=== PATIENT | male | born 1950 | race Caucasian/White ===

== ENCOUNTER 2017-01-22 13:59 | Emergency (ER) | payer OTHER ==
[2017-01-22 14:11] VITALS: BP 99/61
--- NOTE | 2017-01-22 14:44 | RAD ---
INDICATION: Intracranial injury COMPARISON: CT brain April 06, 2009 TECHNIQUE: Noncontrast axial source images were acquired from the skull base to the vertex. FINDINGS: Ventricles/sulci: There is cortical atrophy with compensatory dilatation of the CSF spaces. Brain parenchyma: There is no acute focal parenchymal finding, evidence of intracranial mass, or intracranial mass effect. There is a remote right occipital infarct with encephalomalacia. Intracranial hemorrhage:None. Extra-axial spaces: There are no abnormal extra axial fluid collections or evidence of extra-axial mass. Calvarium: There is no calvarial fracture or other calvarial abnormality. Scalp: There is no evidence of scalp or extracalvarial soft tissue abnormality. Paranasal sinuses/mastoid: The paranasal sinuses and mastoid air cells are clear. Other: None. IMPRESSION: NO ACUTE INTRACRANIAL FINDINGS. REMOTE RIGHT OCCIPITAL INFARCT WITH ENCEPHALOMALACIA
[2017-01-22] MEDS ORDERED: HYDROcodone/ACETAMIN 5-325 MG* 1 TAB PO ONE (14:52)
--- NOTE | 2017-01-22 15:34 | RAD ---
INDICATION: Left knee injury. TECHNIQUE: 4 views of the left knee were obtained. FINDINGS: The bones are in normal alignment. No joint effusion or fracture is seen. There is mild to moderate osteoarthritic change in the patellofemoral and medial compartments. IMPRESSION: NO EVIDENCE FOR FRACTURE.
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
== END 2017-01-22 16:20 | disposition home or self-care (01) ==
LOC: ED 13:59
DX: S80.212A Abrasion, left knee, initial encounter (principal); M25.562 Pain in left knee; W10.9XXA Fall (on) (from) unspecified stairs and steps, initial encounter; Y93.9 Activity, unspecified; Y92.9 Unspecified place or not applicable; Y99.9 Unspecified external cause status; Z87.891 Personal history of nicotine dependence
CPT/HCPCS: 70450; 99282

== ENCOUNTER 2017-03-15 06:01 | Inpatient (IN) | payer OTHER ==
[2017-03-15] MEDS ORDERED: Albuterol/Ipratropium NEB.SOL* Albuterol 2.5 MG/Ipratropium 0.5 MG 3 ML INH ONE (06:06)
[2017-03-15] MEDS ORDERED: methylPREDNISolone 125 MG* 2 ML VIAL IV ONE (06:06)
[2017-03-15 06:17] LABS: Hematocrit 56 % (42-52); Hemoglobin 17.7 g/dl (14.0-18.0); Mean Corpuscular HGB Conc 32 g/dl (31-36); Mean Corpuscular Hemoglobin 30 pg (27-31); Mean Corpuscular Volume 95 fL (80-94); Mean Platelet Volume 10 um3 (7.4-10.4); Red Blood Count 5.89 10^6/ul (4.0-5.4); Red Cell Distribution Width 15 % (10.5-15); White Blood Count 11.9 10^3/ul (3.5-10.8)
[2017-03-15 06:30] LABS: Albumin 4.7 g/dL (3.2-5.2); BUN/Creatinine Ratio 18.1 (8-20); C Reactive Protein 7.85 mg/L (< 5.00); Calcium 9.9 mg/dL (8.6-10.3); EGFR African American 60.5 (>60); Globulin 3.3 g/dL (2-4); Magnesium 2.4 mg/dL (1.9-2.7); Potassium 4.6 mmol/L (3.5-5.0); Total Bilirubin 0.8 mg/dL (0.2-1.0)
[2017-03-15 06:38] LABS: Troponin I 0.04 ng/mL (<0.04)
[2017-03-15] MEDS ORDERED: Furosemide IV* 10 MG/ML VIAL (40 MG) IV ONE (06:46)
[2017-03-15] MEDS ORDERED: Morphine INJ* 4 MG/ML 1 ML SYRINGE IV ONE (06:48)
[2017-03-15] MEDS ORDERED: Morphine INJ* 2 MG/ML 1 ML SYRINGE ONE (06:48)
[2017-03-15] MEDS ORDERED: cefTRIAXone(*) 1 GM in NS 0.9% 50 ML* 50 ML IVPB ONE (06:49)
[2017-03-15] MEDS ORDERED: Azithromycin IV(*) 500 MG in NS 0.9% 250 ML* 250 ML IVPB ONE (06:49)
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
[2017-03-15 07:03] LABS: TSH (Thyroid Stimulating Horm) 4.65 mcIU/mL (0.34-5.60)
--- NOTE | 2017-03-15 08:08 | RAD ---
INDICATION: Short of breath COMPARISON: May 09, 2016 TECHNIQUE: An AP portable view obtained at 0528 hours is submitted. FINDINGS: Bones/Soft Tissues: There are no acute bony findings. Cardiomediastinal: The cardiac silhouette, central pulmonary vessels, and interstitium remain prominent. Lungs: Diffuse interstitial and early alveolar change consistent with pulmonary interstitial and alveolar edema. Pleura: There are no pleural effusions. Other: None IMPRESSION: PULMONARY INTERSTITIAL AND ALVEOLAR EDEMA. NO SIGNIFICANT CHANGE.
[2017-03-15] MEDS ORDERED: Albuterol 2.5 MG/3 ML NEB.SOL* (0.083%) INH PRN (08:20)
[2017-03-15] MEDS ORDERED: Ondansetron INJ* 2 MG/ML VIAL IV PRN (08:20)
[2017-03-15] MEDS ORDERED: HYDROcodone/ACETAMIN 5-325 MG* 1 TAB PO PRN (08:26)
[2017-03-15] MEDS ORDERED: ALPRAZolam TAB* 0.5 MG PO PRN (08:26)
[2017-03-15] MEDS ORDERED: Dextrose 50% Syringe 50 ML* 25 GM/50 ML SYRINGE IV PUSH PRN (08:31)
[2017-03-15] MEDS ORDERED: Apixaban* 5 MG TAB PO SCH (09:00)
[2017-03-15] MEDS ORDERED: Spiriva Inhaler DEVICE* 1 EACH DEVICE INH ONE (09:00)
[2017-03-15 09:16] LABS: Urine Bacteria Absent (Absent); Urine Bilirubin Negative (Negative); Urine Glucose 3+(>=500 mg/dL) (Negative); Urine Nitrite Negative (Negative)
[2017-03-15] MEDS ORDERED: Perflutren Lipid Microsphere* 3 ML VIAL ONE (09:38)
--- NOTE | 2017-03-15 11:07 | ECHO ---
Patient: KURTIS GONZALES [facility] Rec#: [id number] : 1950 Date: 03/15/2017 Age: 66y Height: 182.88 cm / 72.0 in Weight: 98.88 kg / 217.9 lbs Sex: M BSA: 2.21 Room#: ICU-3 Admit Date#: 03/15/2017 Type: Inpatient Referring: Raciel Erazo MD Reading: Abdullahi Healy MD [employer] Control: Ladi Mccoy CLAY CC: Salud Bella NP Transthoracic Echocardiogram Indication: Hypoxia/Resp Abn. BP: 106/66 HR: 122 Rhythm: Tachycardia Findings Technical Comments: The study is technically limited due to patient being on BIPAP during study. Completed at 1038. Left Ventricle: The left ventricular chamber size is mildly dilated.There is moderately depressed left ventricular function. Mild to moderate concentric left ventricular hypertrophy is observed. Septal knuckle measured 2.0 cm. The estimated ejection fraction is 35-40%. The assessment of diastolic function is non-diagnostic. The basal inferior wall segment is akinetic (score 3). Overall wallmotion score index is 3.00 Left Atrium: The left atrium is moderate to severely dilated. Right Ventricle: The right ventricular cavity size is normal. The right ventricular global systolic function is normal. Right Atrium: The right atrium is not well visualized.but appears grossly normal in size. Aortic Valve: The aortic valve structure is not well visualized. There is mild aortic regurgitation. There is no evidence of aortic stenosis. Mitral Valve: There is mitral annular calcification. The mitral valve leaflets are mildly thickened. There is trace to mild mitral regurgitation. Tricuspid Valve: The tricuspid valve leaflets are normal. There is trace to mild tricuspid regurgitation. There is evidence of mild pulmonary hypertension. There is no tricuspid stenosis. Pulmonic Valve: The pulmonic valve structure is not well visualized. There is a trace pulmonic regurgitation. There is no pulmonic stenosis. Pericardium: There is no pericardial effusion. A pericardial fat pad is visualized. Aorta: There is mild dilatation of the ascending aorta. The aortic arch is not well visualized. There is moderate dilatation of the aortic root. Pulmonary Artery: The main pulmonary artery is not well visualized. Venous: The inferior vena cava is dilated. There is a greater than 50% respiratory change in the inferior vena cava dimension. Contrast: Definity was used to optimize study. A total of 4 ml. used. Intravenous contrast was used to enhance endocardial border definition. Conclusions The left ventricular chamber size is mildly dilated. There is moderately depressed left ventricular function. The estimated ejection fraction is 35-40%. Mild to moderate concentric left ventricular hypertrophy is observed. There is moderate global hypokinesis. The basal inferior wall segment is akinetic (score 3). The left atrium is moderate to severely dilated. There is mild aortic regurgitation. There is evidence of mild pulmonary hypertension. There is mild dilatation of the ascending aorta. There is moderate dilatation of the aortic root. Since the prior echocardiogram completed 04/09/16, there appears to be little change. Measurements Name Value Normal Range RVIDd (AP) 2D 2.6 cm (0.9 - 2.6) IVSd (2D) 1.4 cm (0.6 - 1) LVPWd (2D) 1.1 cm (0.6 - 1) LVIDd (2D) 6 cm (3.6 - 5.4) LVIDs (2D) 4.5 cm - LV FS (2D) 25 % (25 - 45) Aortic Annulus 2.4 cm (1.4 - 2.6) Ao root diameter (2D) 4.2 cm (2.1 - 3.5) Ascending Ao 3.5 cm (2.1 - 3.4) LA dimension (AP) 2D 5.2 cm (2.3 - 3.8) LAd ISD 4CH 6.7 cm (2.9 - 5.3) LA ISD 4CH W 4.9 cm (2.5 - 4.5) Name Value Normal Range LA ESV SP 4CH (A/L) 130 ml - LA ESV SP 2CH (A/L) 99 ml - LA ESV BP (A/L) 114 ml - LA ESV BP (A/L) index 51.66 ml/m2 - LA ESV SP 4CH (MOD) 111 ml - LA ESV SP 2CH (MOD) 93 ml - Name Value Normal Range MV E-wave Vmax 0.8 m/sec - MV deceleration time 130 msec - LV septal e' Vmax 0.03 m/sec - LV lateral e' Vmax 0.07 m/sec - LV E:e' septal ratio 26.67 ratio - LV E:e' lateral ratio 11.42 ratio - Name Value Normal Range AV Vmax 1.3 m/sec - AV VTI 19.9 cm - AV peak gradient 6.92 mmHg - AV mean gradient 2.96 mmHg - LVOT Vmax 0.7 m/sec - LVOT VTI 12.7 cm - LVOT peak gradient 2.21 mmHg - LVOT mean gradient 0.95 mmHg - AR PHT 374 msec - AR peak gradient 46.45 mmHg - Name Value Normal Range TR Vmax 2.7 m/sec - TR peak gradient 30 mmHg - RAP 8 mmHg - RVSP 38 mmHg - IVC diameter 2.3 cm - Name Value Normal Range PV Vmax 0.7 m/sec - PV peak gradient 1.72 mmHg - Wallmotion BAS Not Seen BA Not Seen BAL Not Seen JA Not Seen BI Akinetic BIS Not Seen MAS Not Seen MA Not Seen MAL Not Seen MIL Not Seen [place] Not Seen MIS Not Seen Not Seen AA Not Seen AL Not Seen AI Not Seen APEX Not Seen
[2017-03-15 11:08] LABS: Troponin I 0.28 ng/mL (<0.04)
[2017-03-15] MEDS: Metoprolol Succinate XL TAB* 50 MG PO SCH ×2 (11:48→21:16)
[2017-03-15] MEDS: Gabapentin CAP(*) 300 MG PO SCH ×3 (11:49→21:14)
[2017-03-15] MEDS: Nicotine PATCH 7 MG/24 HR* PATCH TRANSDERM SCH (11:49)
[2017-03-15] MEDS: Loperamide CAP* 2 MG PO PRN (11:50)
[2017-03-15] MEDS: Tiotropium CAP.INH* CAP.INH/18 MCG INH SCH (11:50)
[2017-03-15] MEDS: Mometasone/Formoter 200/5 MDI INH SCH ×2 (11:51→19:51)
[2017-03-15] MEDS: Insulin LISPRO* 1 UNITS UNIT SUBCUT SCH ×3 (12:00→21:27)
[2017-03-15] MEDS ORDERED: Aspirin TAB* 325 MG PO ONE (12:32)
[2017-03-15] MEDS: OXcarbazepine TAB(*) 300 MG PO SCH ×2 (13:51→21:14)
[2017-03-15] MEDS ORDERED: Loperamide CAP* 2 MG PO ONE (15:01)
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
[2017-03-15] MEDS ORDERED: Heparin DRIP 25,000 UNITS(*) 25,000 UNITS/500 ML BAG IVPB SCH (16:15)
[2017-03-15] MEDS ORDERED: Furosemide IV* 10 MG/ML VIAL (40 MG) IV SCH (17:00)
[2017-03-15] MEDS ORDERED: Heparin VIAL(*) 5000 UNITS/ML VIAL (FIVE THOUSAND) IV SCH (17:00)
[2017-03-15] MEDS ORDERED: Atorvastatin* 20 MG TAB PO SCH (17:00)
[2017-03-15 17:42] LABS: Hematocrit 44 % (42-52); Hemoglobin 14.5 g/dl (14.0-18.0); Mean Corpuscular HGB Conc 33 g/dl (31-36); Mean Corpuscular Hemoglobin 30 pg (27-31); Mean Corpuscular Volume 92 fL (80-94); Mean Platelet Volume 9 um3 (7.4-10.4); Red Cell Distribution Width 14 % (10.5-15); White Blood Count 9.2 10^3/ul (3.5-10.8)
[2017-03-15 17:53] LABS: Troponin I 0.41 ng/mL (<0.04)
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
[2017-03-16 03:52] LABS: Hematocrit 38 % (42-52); Hemoglobin 12.5 g/dl (14.0-18.0); Mean Corpuscular HGB Conc 33 g/dl (31-36); Mean Corpuscular Hemoglobin 30 pg (27-31); Mean Corpuscular Volume 92 fL (80-94); Mean Platelet Volume 10 um3 (7.4-10.4); Red Blood Count 4.13 10^6/ul (4.0-5.4); Red Cell Distribution Width 15 % (10.5-15); White Blood Count 13.4 10^3/ul (3.5-10.8)
[2017-03-16 04:05] LABS: BUN/Creatinine Ratio 34.4 (8-20); EGFR African American 100.5 (>60); EGFR Non-African American 78.1 (>60); Magnesium 1.8 mg/dL (1.9-2.7); Potassium 3.8 mmol/L (3.5-5.0)
[2017-03-16] MEDS ORDERED: Omeprazole CAP* 20 MG PO SCH (06:00)
[2017-03-16] MEDS ORDERED: Magnesium Sulfate 2 GM IV* 2 GM/50 ML BAG IVPB ONE (07:37)
[2017-03-16] MEDS ORDERED: Furosemide IV* 10 MG/ML VIAL (40 MG) IV SLOW PU SCH ×3 (07:43→09:00)
[2017-03-16] MEDS: Metoprolol Succinate XL TAB* 50 MG PO SCH (08:01)
--- NOTE | 2017-03-16 08:02 | PN ---
Subjective Date of Service: 03/16/17 Interval History: CC: SOB Patient admitted yesterday AM w/ CHF exacerbation. States breathing is OK, was able to lie flat overnight. No chest pain, palpitations. Not having high urine output. Denies peripheral edema. Trying to quit smoking, smokes about 3-4cig/mon Family History: Unchanged from Admission Social History: Unchanged from Admission Past Medical History: Unchanged from Admission Objective Active Medications: Hydrocodone Bitart/Acetaminophen ([place] 5-325 Tab*) 1 tab PO Q6H PRN PRN Reason: PAIN SCALE 6-10 Albuterol (Ventolin 2.5 Mg/3 Ml Neb.Jessika*) 2.5 mg INH [id number] AWAKE PRN PRN Reason: sob/wheezing Alprazolam (Xanax Tab*) 0.5 mg PO BID PRN PRN Reason: ANXIETY Atorvastatin Calcium (Lipitor*) 20 mg PO 1700 [facility] Last Admin: 03/15/17 17:48 Dose: 20 mg Dextrose (D50w Syringe 50 Ml*) 12.5 gm IV PUSH .FOR FS < 60 - SS PRN PRN Reason: FS < 60 Furosemide (Lasix Iv*) 40 mg IV SLOW PU BID@0900 [facility] Gabapentin (Neurontin Cap(*)) 600 mg PO TID [facility] Last Admin: 03/15/17 21:14 Dose: 600 mg Heparin Sodium (Porcine) (Heparin Vial(*)) 0 units IV .PER PROTOCOL STELLA PRN Reason: Protocol Last Admin: 03/15/17 19:49 Dose: 7,300 units Heparin Sodium/Dextrose (Heparin Drip 25,000 Units(*)) 25,000 units in 500 mls @ 0 mls/hr IVPB .PER RATE STELLA; Per Protocol PRN Reason: Protocol Last Admin: 03/15/17 19:35 Dose: 31 mls/hr Insulin Human Lispro (Humalog*) 0 units SUBCUT ACHS STELLA PRN Reason: Protocol Last Admin: 03/15/17 21:27 Dose: 4 units Loperamide HCl (Imodium Cap*) 2 mg PO Q6HR PRN PRN Reason: LOOSE STOOLS Last Admin: 03/15/17 11:50 Dose: 2 mg Metoprolol Succinate (Toprol Xl Tab*) 100 mg PO BID [facility] Last Admin: 03/15/17 21:16 Dose: Not Given Mometasone Furoate/Formoterol Fumar (Dulera 200/5 Mdi*) 2 puff INH BID [facility] Last Admin: 03/15/17 19:51 Dose: 2 inh Nicotine (Nicotine Patch 7 Mg/24 Hr*) 1 patch TRANSDERM DAILY [facility] Last Admin: 03/15/17 11:49 Dose: 1 patch Omeprazole (Prilosec Cap*) 20 mg PO DAILY@0600 [facility] Last Admin: 03/16/17 06:32 Dose: 20 mg Ondansetron HCl (Zofran Inj*) 4 mg IV Q4H PRN PRN Reason: NAUSEA/VOMITING Oxcarbazepine (Trileptal Tab(*)) 300 mg PO BID [facility] Last Admin: 03/15/17 21:14 Dose: 300 mg Tiotropium [place] (Spiriva Cap.Inh*) 1 cap INH DAILY [facility] Last Admin: 03/15/17 11:50 Dose: 1 inh Vital Signs 03/16/17 03/16/17 03/16/17 03:00 03:39 03:44 Temperature 36.2 C Pulse Rate 82 Respiratory 17 17 Rate Blood Pressure 117/75 (mmHg) O2 Sat by Pulse 97 Oximetry 03/16/17 03/16/17 03/16/17 04:00 05:00 06:00 Temperature Pulse Rate 90 89 76 Respiratory 21 20 15 Rate Blood Pressure 110/74 113/56 112/48 (mmHg) O2 Sat by Pulse 99 99 99 Oximetry 03/16/17 03/16/17 07:00 07:20 Temperature 36.7 C Pulse Rate 90 Respiratory 22 Rate Blood Pressure 113/76 (mmHg) O2 Sat by Pulse 97 Oximetry Oxygen Devices in Use Now: Nasal Cannula Appearance: No acute distress Ears/Nose/Mouth/Throat: NL Teeth, Lips, Gums Neck: NL Appearance and Movements; NL JVP, Trachea Midline Respiratory: - - diminished throughout, no rales Cardiovascular: NL Sounds; No Murmurs; No JVD, No Edema, - - irregular Abdominal: NL Sounds; No Tenderness; No Distention, No Hepatosplenomegaly Lymphatic: No Cervical Adenopathy Extremities: No Edema Neurological: Alert and Oriented x 3 Lines/Tubes/Other Access: Clean, Dry and Intact Peripheral IV Nutrition: Taking PO's Result Diagrams: 03/16/17 03:36 03/16/17 03:36 Additional Lab and Data: Lab Results Laboratory Tests 03/15/17 03/15/17 03/15/17 10:30 15:10 17:25 APTT 31.9 Glucose POC Glucose (mg/dL) Magnesium Troponin I 0.28 H* 0.38 H* 03/15/17 03/15/17 03/15/17 17:25 21:21 21:22 APTT Glucose 322 H POC Glucose (mg/dL) 312 H Magnesium Troponin I 0.41 H* 0.42 H* 03/16/17 03/16/17 03:36 03:36 APTT 188.5 H* Glucose 173 H POC Glucose (mg/dL) Magnesium 1.8 L Troponin I Diagnostic Imaging: Echo yesterday EF 35% EKG Data: Telemetry w/o significant arrhythmias, chronic a-fib Assess/Plan/Problems-Billing Assessment: 66 yo man with known CAD, a-fib, systolic CHF, admitted w/ acute hypoxic respiratory failure due to systolic heart failure exacerbation. - Patient Problems (1) Acute respiratory failure with hypoxia Current Visit: Yes Status: Acute Priority: High Code(s): J96.01 - ACUTE RESPIRATORY FAILURE WITH HYPOXIA SNOMED Code(s): 27646151 Comment: -Resp failure resolved, post 4 hours of BiPAP and diuresis. -Advised home BiPAP use, due to chronic COPD and CHF (2) Acute systolic (congestive) heart failure Current Visit: Yes Status: Acute Priority: High Code(s): I50.21 - ACUTE SYSTOLIC (CONGESTIVE) HEART FAILURE SNOMED Code(s): 608760132 Comment: -CHF symptoms improved -not diuresing adequately, will increase IV lasix to BID, follow I/O, weights -discussed low salt diet. (3) CAD (coronary artery disease) Current Visit: Yes Status: Chronic Priority: Medium Code(s): I25.10 - ATHSCL HEART DISEASE OF [place] CORONARY ARTERY W/O ANG PCTRS SNOMED Code(s): 22750205 Comment: -Troponin elevated by demand ischemia, not peaked yet, will recheck this AM. -continue IV heparin -cardiology consult appreciated, pursuing non-invasive strategy (4) Atrial fibrillation Current Visit: No Status: Chronic Priority: Medium Code(s): I48.91 - UNSPECIFIED ATRIAL FIBRILLATION SNOMED Code(s): 60767229 Comment: -rate control excellent, continue metoprolol -Continue IV heparin inpatient, will discharge back on Eliquis -will supplement magnesium IV (5) Type 2 diabetes mellitus Current Visit: Yes Status: Chronic Priority: Medium Comment: - metformin on hold due to lactic acidosis - FSBG elevated yesterday, improved today, continue SSI (6) DVT prophylaxis Current Visit: No Status: Acute Priority: Medium Onset Date: 11/05/14 Code(s): CYQ9087 - SNOMED Code(s): 777901562 Comment: on IV heparin
[2017-03-16] MEDS: Gabapentin CAP(*) 300 MG PO SCH (08:42)
[2017-03-16] MEDS: OXcarbazepine TAB(*) 300 MG PO SCH (08:42)
[2017-03-16] MEDS: Nicotine PATCH 7 MG/24 HR* PATCH TRANSDERM SCH (08:42)
[2017-03-16] MEDS: Tiotropium CAP.INH* CAP.INH/18 MCG INH SCH (08:45)
[2017-03-16] MEDS: Mometasone/Formoter 200/5 MDI INH SCH (08:45)
[2017-03-16] MEDS: Insulin LISPRO* 1 UNITS UNIT SUBCUT SCH ×2 (09:13→12:53)
[2017-03-16 11:05] VITALS: BP 107/51
[2017-03-16] MEDS: Loperamide CAP* 2 MG PO PRN (12:54)
--- NOTE | 2017-03-17 00:19 | DS ---
CC: Dr. Magalys Sams, [place], [place]; Dr. Walls, Chief of Cardiology, [place], [place] DISCHARGE SUMMARY: DATE OF ADMISSION: 03/15/17 DATE OF DISCHARGE: 03/16/17 PRIMARY DIAGNOSIS: Acute exacerbation of systolic heart failure. SECONDARY DIAGNOSES: 1. Acute hypoxic respiratory failure. 2. Cardiomyopathy thought to be due to arrhythmia with ejection fraction of 30%. 3. Coronary artery disease with history of stenting x6 with suspicion of ischemic cardiomyopathy as well. 4. Chronic atrial fibrillation, on anticoagulation. 5. Hypertension. 6. Chronic kidney disease, stage 3. 7. Chronic obstructive pulmonary disease, oxygen dependent at night, 2 L per minute. 8. Hyperlipidemia. 9. Type 2 diabetes. 10. Sleep apnea, noncompliant with CPAP. 11. Gastroesophageal reflux disease. 12. Psoriasis. 13. Chronic low back pain. 14. Irritable bowel syndrome. MEDICATIONS ON DISCHARGE: 1. Alprazolam 0.5 mg p.o. b.i.d. p.r.n. anxiety. 2. Eliquis 5 mg p.o. b.i.d. 3. Atorvastatin 20 mg p.o. q.p.m. 4. Symbicort 80/4.5 two inhalations twice a day. 5. Chlorhexidine mouthwash as needed. 6. Vitamin D 2000 International Units p.o. q. day. 7. Furosemide 40 mg p.o. b.i.d. with additional half tablet as needed if weight elevated 2 pounds a mary baseline or if systolic blood pressure greater than 110. 8. Gabapentin 600 mg p.o. t.i.d. 9. Guaifenesin tablet 200 mg four times a day p.r.n. for congestion. 10. Hydrocodone with acetaminophen 5/325 one tab p.o. four times a day p.r.n. back pain. 11. Ammonium lactate cream topically as needed. 12. Loperamide 2 mg p.o. q.6 hours p.r.n. diarrhea. 13. Toprol-XL 100 mg p.o. b.i.d. 14. Naloxone nasal spray 4 mg nasally p.r.n. for overdose. 15. Nicotine patch 7 mg per 24 hours topically q. day. 16. Oxcarbazepine 300 mg p.o. b.i.d. 17. Protonix 40 mg p.o. q. day. 18. Potassium chloride 30 mEq p.o. q.p.m. 19. Eucerin cream as needed. 20. Spiriva 1 inhalation daily. 21. Metformin 1000 mg p.o. q. day. HOSPITAL COURSE: The patient with extensive cardiac history as above presented to the emergency dep artment with dyspnea at rest and orthopnea. He denied any chest pain. He had class IV heart failur e symptoms with exercise tolerance of only 30 feet and dyspnea at rest. The patient was found to be hypoxic down to the 87% range on admission. The patient was found to have acute hypoxic respirator y failure, which responded well to BiPAP, which proceeded for approximately 4 hours on admission. Xuan amezquita also received additional IV Lasix. His intake and output remained even, but he did put out a lite r of fluid on the day of discharge with after 40 mg of Lasix IV in the morning. The patient's shortn ess of breath at rest and orthopnea resolved and he wanted to go home. We discussed daily weights, daily blood pressures, low-salt diet, and activity extensively. On admission, the patient's white count was elevated at 11.9, hematocrit 56%, platelets 156. This p olycythemia was thought to be due to hypoxia. The patient did not receive any fluids, but his hemat ocrit did drop from 56% to 38% and his white count remained elevated at 13.4. He did receive a dose of Solu-Medrol in the emergency department, but he was not treated for COPD exacerbation on an ongo ing basis in the hospital. His initial troponin was elevated at 0.04 and it increased up to 0.42 ov ernight and trended down to 0.23 on the morning of discharge. A Cardiology consult was obtained wit xuan Dr. Healy, Cardiology, who reviewed his complex ischemic heart disease as well as heart failure an d atrial fibrillation and advised medical management. An echocardiogram was obtained on the day of admission, which showed ejection fraction of 35% to 40% range with [id number] concentric LVH a nd no significant valvular disease. DISPOSITION: To home and he should see his primary care and college director at the [employer] within the next 1 to 2 weeks. ACTIVITIES: To walk as tolerated. DIET: Low salt. Please see the history and physical and Cardiology consultation to review this complex medical admis keturah. TIME SPENT: The discharge process took 45 minutes including meeting with the patient and his , examining the patient and arranging for discharge. We will also call his college director, Dr. Walls, to coordinate care this weekend. [id number]/CPS #: [id number]
== END 2017-03-16 16:00 | disposition home or self-care (01) | DRG 291 ==
LOC: ED 06:01 → ICU 08:20
PROVIDERS: ADMIT Internal Medicine; ATTEND Internal Medicine
PROC: 5A09357 Assistance with Respiratory Ventilation, Less than 24 Consecutive Hours, Continuous Positive Airway Pressure (ICD-10-PCS; principal; 2017-03-15)
DX: I13.0 Hypertensive heart and chronic kidney disease with heart failure and stage 1 through stage 4 chronic kidney disease, or unspecified chronic kidney disease (principal); I50.23 Acute on chronic systolic (congestive) heart failure; J96.01 Acute respiratory failure with hypoxia; E87.2 Acidosis; J44.9 Chronic obstructive pulmonary disease, unspecified; F17.210 Nicotine dependence, cigarettes, uncomplicated; I25.10 Atherosclerotic heart disease of native coronary artery without angina pectoris; E78.00 Pure hypercholesterolemia, unspecified; I42.2 Other hypertrophic cardiomyopathy; K21.9 Gastro-esophageal reflux disease without esophagitis; K58.9 Irritable bowel syndrome, unspecified; N40.0 Benign prostatic hyperplasia without lower urinary tract symptoms; E11.40 Type 2 diabetes mellitus with diabetic neuropathy, unspecified; F41.9 Anxiety disorder, unspecified; F32.9 Major depressive disorder, single episode, unspecified; F43.10 Post-traumatic stress disorder, unspecified; G47.33 Obstructive sleep apnea (adult) (pediatric); N18.3 Chronic kidney disease, stage 3 (moderate); E78.5 Hyperlipidemia, unspecified; G89.29 Other chronic pain; M54.5 Low back pain; F10.21 Alcohol dependence, in remission; R79.89 Other specified abnormal findings of blood chemistry; L40.9 Psoriasis, unspecified; E11.51 Type 2 diabetes mellitus with diabetic peripheral angiopathy without gangrene; I25.5 Ischemic cardiomyopathy; I48.2 Chronic atrial fibrillation; Z79.01 Long term (current) use of anticoagulants; Z79.84 Long term (current) use of oral hypoglycemic drugs; Z88.5 Allergy status to narcotic agent; Z88.0 Allergy status to penicillin; Z88.8 Allergy status to other drugs, medicaments and biological substances; Z91.030 Bee allergy status; Z91.013 Allergy to seafood; Z91.048 Other nonmedicinal substance allergy status; Z91.018 Allergy to other foods; Z87.01 Personal history of pneumonia (recurrent); Z95.5 Presence of coronary angioplasty implant and graft; Z93.2 Ileostomy status; Z99.81 Dependence on supplemental oxygen; Z91.19 Patient's noncompliance with other medical treatment and regimen
CPT/HCPCS: 36415; 71010; 80048; 80053; 81003; 81015; 82550; 82553; 82947; 83605; 83690; 83735; 83880; 84443; 84484; 85025; 85610; 85730; 86140; 87040; 93005; 93306; 94640; 94660; A9270-GY; C8929; J0456; J0696; J1644; J1940; J2270; J2930

== ENCOUNTER 2017-03-17 06:26 | Emergency (ER) | payer OTHER ==
[2017-03-17] MEDS ORDERED: Furosemide IV* 10 MG/ML VIAL (40 MG) IV ONE (06:36)
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
[2017-03-17 06:54] LABS: Hematocrit 43 % (42-52); Hemoglobin 14.1 g/dl (14.0-18.0); Mean Corpuscular HGB Conc 33 g/dl (31-36); Mean Corpuscular Hemoglobin 30 pg (27-31); Mean Corpuscular Volume 93 fL (80-94); Mean Platelet Volume 10 um3 (7.4-10.4); Red Blood Count 4.67 10^6/ul (4.0-5.4); Red Cell Distribution Width 15 % (10.5-15); White Blood Count 11.3 10^3/ul (3.5-10.8)
[2017-03-17 07:16] LABS: Albumin 3.7 g/dL (3.2-5.2); Calcium 8.5 mg/dL (8.6-10.3); EGFR African American 67.2 (>60); EGFR Non-African American 52.3 (>60); Globulin 2.4 g/dL (2-4); Potassium 3.7 mmol/L (3.5-5.0); Total Bilirubin 0.7 mg/dL (0.2-1.0); Total Protein 6.1 g/dL (6.4-8.9)
[2017-03-17 08:01] LABS: Troponin I 0.14 ng/mL (<0.04)
--- NOTE | 2017-03-17 08:04 | RAD ---
HISTORY: Shortness of breath COMPARISONS: March 15, 2017 VIEWS:1: Single frontal portable view of the chest at 6:54 AM FINDINGS: LINES AND TUBES: None. CARDIOMEDIASTINAL SILHOUETTE: The cardiomediastinal silhouette is normal for portable technique. PLEURA: The costophrenic angles are sharp. No pleural abnormalities are noted. LUNG PARENCHYMA: There is a diffuse reticular pattern with indistinct pulmonary vessels, this is somewhat improved from the previous examination. ABDOMEN: The upper abdomen is clear. There is no subphrenic gas. BONES AND SOFT TISSUES: No bone or soft tissue abnormalities are noted. IMPRESSION: PULMONARY INTERSTITIAL EDEMA, IMPROVED FROM MARCH 15, 2017
[2017-03-17 09:29] VITALS: BP 122/68
--- NOTE | 2017-03-17 09:49 | ED ---
Kiera Ngo Auryana, scribed for Jonathon Charles MD on 03/17/17 at 0910 . Progress - Progress Note Progress Note: Patient was admitted by the hospitalist by Dr. Daugherty. Dr. Ingram from ICU accessed patient, and after his full assessment, he decided patient should be discharged home with PCP follow up. He believes that after Lasix and approximately 2 hours BIPAP, symptoms improved. Vital signs WNL, except slight increase in HR to 103 bpm. He is A&O x3 and hemodynamically stable. DX: CHF exacerbation Course/Dx - Diagnoses Provider Diagnoses: CHF exacerbation - Provider Notifications Discussed Care Of Patient With: Dr. Ingram - ICU physician Time Discussed With Above Provider: 09:03 - recommends d/c of patient The documentation as recorded by the Kiera israel Auryana accurately reflects the service I personally performed and the decisions made by Melvin doss Walter, MD.
== END 2017-03-17 09:28 ==
LOC: ED 06:26
DX: I50.9 Heart failure, unspecified (principal); R06.02 Shortness of breath
CPT/HCPCS: 36415; 71010; 80053; 83605; 83880; 84484; 85025; 85610; 93005; 94660; 96374; 99282; J1940

== ENCOUNTER 2017-10-27 04:49 | Emergency (ER) | payer MEDICARE, OTHER ==
[2017-10-27] MEDS ORDERED: Magnesium Sulfate 2 GM IV* 2 GM/50 ML BAG IVPB ONE (04:58)
[2017-10-27] MEDS ORDERED: methylPREDNISolone 125 MG* 2 ML VIAL IV ONE (04:58)
[2017-10-27] MEDS ORDERED: Albuterol/Ipratropium NEB.SOL* Albuterol 2.5 MG/Ipratropium 0.5 MG 3 ML INH ONE (04:58)
[2017-10-27 05:25] LABS: ABS Basophils 0.1 10^3/ul (0-0.2); ABS Eosinophils 0.1 10^3/ul (0-0.6); ABS Lymphocytes 0.6 10^3/ul (1.0-4.8); ABS Monocytes 0.6 10^3/ul (0-0.8); ABS Neutrophils 7.2 10^3/ul (1.5-7.7); ABS Nucleated RBC 0 10^3/ul; Eosinophil % 0.9 % (0-6); Hematocrit 42 % (42-52); Hemoglobin 13.6 g/dl (14.0-18.0); Lymphocyte % 7.3 % (25-47); Mean Corpuscular HGB Conc 33 g/dl (31-36); Mean Corpuscular Hemoglobin 29 pg (27-31); Mean Corpuscular Volume 89 fL (80-94); Mean Platelet Volume 10 um3 (7.4-10.4); Nucleated Red Blood Cells % 0; Platelet Count 137 10^3/ul (150-450); Red Cell Distribution Width 15 % (10.5-15); White Blood Count 8.6 10^3/ul (3.5-10.8)
[2017-10-27 05:37] LABS: EGFR Non-African American 48.8 (>60)
[2017-10-27] MEDS ORDERED: Nicotine Inhaler* 10 MG AMP INH PRN (05:44)
[2017-10-27] MEDS ORDERED: Mouth Piece, Nicotine* 1 EACH CARTRIDGE INH PRN ×2 (05:44)
[2017-10-27] MEDS ORDERED: Azithromycin TAB* 250 MG PO ONE (07:02)
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
--- NOTE | 2017-10-27 08:30 | RAD ---
INDICATION: Dyspnea. COMPARISON: Comparison is made with a prior chest x-ray study from March 17, 2017. TECHNIQUE: A portable view of the chest was obtained. FINDINGS: The heart is moderately enlarged and unchanged. There is mild diffuse prominence of the interstitial markings. No pleural effusion is seen. IMPRESSION: FINDINGS SUGGESTIVE OF CONGESTIVE HEART FAILURE.
[2017-10-27 08:33] VITALS: BP 110/74
== END 2017-10-27 07:35 | disposition left against medical advice (07) ==
LOC: ED 04:49
DX: J44.1 Chronic obstructive pulmonary disease with (acute) exacerbation (principal); J20.9 Acute bronchitis, unspecified; J44.0 Chronic obstructive pulmonary disease with (acute) lower respiratory infection; R06.02 Shortness of breath; R05 Cough; Z79.01 Long term (current) use of anticoagulants; Z87.19 Personal history of other diseases of the digestive system; Z87.891 Personal history of nicotine dependence
CPT/HCPCS: 36415; 71045; 80053; 83735; 83880; 84484; 85025; 93005; 94640; 94660; 96374; 99285; A9270-GY; J2930; J3475

== ENCOUNTER 2017-12-03 10:39 | Emergency (ER) | payer OTHER ==
[2017-12-03] MEDS ORDERED: Morphine INJ* 4 MG/ML 1 ML CARPUJECT IV ONE (11:33)
[2017-12-03] MEDS ORDERED: Nicotine PATCH 7 MG/24 HR* PATCH TRANSDERM ONE (11:50)
[2017-12-03 12:00] LABS: ABS Basophils 0.1 10^3/ul (0-0.2); ABS Eosinophils 0 10^3/ul (0-0.6); ABS Lymphocytes 0.7 10^3/ul (1.0-4.8); ABS Monocytes 0.6 10^3/ul (0-0.8); ABS Neutrophils 6.7 10^3/ul (1.5-7.7); ABS Nucleated RBC 0 10^3/ul; Eosinophil % 0.5 % (0-6); Hematocrit 41 % (42-52); Hemoglobin 13.5 g/dl (14.0-18.0); Lymphocyte % 8.1 % (25-47); Mean Corpuscular HGB Conc 33 g/dl (31-36); Mean Corpuscular Hemoglobin 29 pg (27-31); Mean Corpuscular Volume 87 fL (80-94); Mean Platelet Volume 10 um3 (7.4-10.4); Nucleated Red Blood Cells % 0; Platelet Count 130 10^3/ul (150-450); Red Blood Count 4.73 10^6/ul (4.0-5.4); Red Cell Distribution Width 16 % (10.5-15); White Blood Count 8.1 10^3/ul (3.5-10.8)
[2017-12-03 12:11] LABS: EGFR Non-African American 61.4 (>60)
[2017-12-03] MEDS ORDERED: Morphine INJ* 4 MG/ML 1 ML SYRINGE (NEW SYRINGE VERSION) ONE (12:12)
[2017-12-03 12:15] LABS: INR 1.18 (0.77-1.02)
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
[2017-12-03 12:40] VITALS: BP 109/63
== END 2017-12-03 12:44 | disposition short-term general hospital (02) ==
LOC: ED 10:39
DX: I99.8 Other disorder of circulatory system (principal); F17.210 Nicotine dependence, cigarettes, uncomplicated; Z79.01 Long term (current) use of anticoagulants; Z95.828 Presence of other vascular implants and grafts; Z88.5 Allergy status to narcotic agent; Z88.0 Allergy status to penicillin; Z88.8 Allergy status to other drugs, medicaments and biological substances
CPT/HCPCS: 36415; 80053; 80162; 83605; 84443; 85025; 85610; 86140; 96374; 96376; 99284; A9270-GY; J2270

== ENCOUNTER 2018-03-18 11:58 | Observation (INO) | payer OTHER ==
[2018-03-18] MEDS ORDERED: NS 0.9% 1000 ML* 1,000 ML IV ONE ×2 (12:17→13:20)
[2018-03-18 12:47] LABS: Hematocrit 35 % (42-52); Hemoglobin 10.6 g/dl (14.0-18.0); Mean Corpuscular HGB Conc 30 g/dl (31-36); Mean Corpuscular Hemoglobin 23 pg (27-31); Mean Corpuscular Volume 74 fL (80-94); Mean Platelet Volume 9.4 um3 (7.4-10.4); Platelet Count 174 10^3/ul (150-450); Red Cell Distribution Width 19 % (10.5-15); White Blood Count 6.2 10^3/ul (3.5-10.8)
[2018-03-18 13:01] LABS: INR 1.03 (0.77-1.02)
[2018-03-18 13:08] LABS: ABS Basophils 0 10^3/ul (0-0.2); ABS Eosinophils 0.1 10^3/ul (0-0.6); ABS Lymphocytes 0.7 10^3/ul (1.0-4.8); ABS Monocytes 0.6 10^3/ul (0-0.8); ABS Neutrophils 4.8 10^3/ul (1.5-7.7); ABS Nucleated RBC 0 10^3/ul; Eosinophil % 2.1 % (0-6); Lymphocyte % 11.3 % (25-47); Nucleated Red Blood Cells % 0.1
[2018-03-18 13:11] LABS: EGFR Non-African American 55.4 (>60)
[2018-03-18] MEDS ORDERED: Insulin REGULAR(*) 1 UNITS UNIT IV PUSH ONE (13:20)
--- NOTE | 2018-03-18 13:55 | RAD ---
HISTORY: Near syncope COMPARISONS: October 27, 2017 VIEWS: 2: Frontal and lateral views of the chest. FINDINGS: CARDIOMEDIASTINAL SILHOUETTE: The cardiac silhouette is enlarged. The cardiomediastinal silhouette is otherwise normal. THUY: The thuy are normal. PLEURA: The costophrenic angles are sharp. No pleural abnormalities are noted. LUNG PARENCHYMA: There is hyperinflation with flattening of the diaphragm and expansion of the AP diameter of the chest. ABDOMEN: The upper abdomen is clear. There is no subphrenic gas. BONES AND SOFT TISSUES: Degenerative changes are noted OTHER: None. IMPRESSION: 1. CARDIOMEGALY. 2. COPD.
[2018-03-18 13:59] LABS: Urine Appearance Clear; Urine Blood Negative (Negative); Urine Color Yellow; Urine Ketones Negative (Negative); Urine Protein Negative (Negative); Urine Urobilinogen Negative (Negative)
[2018-03-18] MEDS ORDERED: Dextrose 50% Syringe 50 ML* 25 GM/50 ML SYRINGE IV PUSH PRN (16:53)
[2018-03-18] MEDS ORDERED: ALPRAZolam TAB* 0.5 MG PO PRN (16:53)
[2018-03-18] MEDS ORDERED: Loperamide CAP* 2 MG PO PRN (16:53)
[2018-03-18] MEDS ORDERED: Mometasone/Formoter 100/5 MDI INH PRN (16:53)
[2018-03-18] MEDS ORDERED: Insulin GLARGINE(*) 1 UNITS UNIT SUBCUT SCH (17:00)
[2018-03-18] MEDS ORDERED: NS 0.9% 1000 ML* 1,000 ML IV SCH (17:00)
[2018-03-18] MEDS ORDERED: Magnesium Oxide TAB* 400 MG PO ONE (17:25)
[2018-03-18] MEDS ORDERED: OLANzapine TAB*ODT* 5 MG PO ONE (17:34)
[2018-03-18] MEDS ORDERED: OLANzapine TAB*ODT* 10 MG TAB PO ONE (17:34)
[2018-03-18] MEDS: Digoxin TAB* 0.25 MG PO SCH (19:16)
[2018-03-18] MEDS: OXcarbazepine TAB(*) 300 MG PO SCH (19:16)
[2018-03-18] MEDS ORDERED: Apixaban* 5 MG TAB PO SCH (21:00)
[2018-03-18] MEDS: Gabapentin CAP(*) 400 MG PO SCH (21:48)
[2018-03-18] MEDS: Furosemide TAB* 40 MG PO SCH (21:48)
[2018-03-18] MEDS: Metoprolol Succinate XL TAB* 100 MG PO SCH (21:48)
[2018-03-18] MEDS: Potassium Chlor TAB* 10 MEQ TAB.ER PO SCH (21:49)
[2018-03-18] MEDS: Insulin LISPRO* 1 UNITS UNIT SUBCUT SCH (22:35)
[2018-03-18] MEDS ORDERED: Insulin LISPRO* 1 UNITS UNIT SUBCUT ONE (23:00)
[2018-03-18] MEDS: HYDROcodone/ACETAMIN 5-325 MG* 1 TAB PO PRN (23:04)
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
[2018-03-19] MEDS: Tiotropium CAP.INH* CAP.INH/18 MCG (USE ORDER SET !) INH SCH (08:16)
[2018-03-19] MEDS: Insulin LISPRO* 1 UNITS UNIT SUBCUT SCH ×4 (08:25→21:35)
[2018-03-19] MEDS: Furosemide TAB* 40 MG PO SCH ×2 (08:26→21:35)
[2018-03-19] MEDS: Omeprazole CAP* 20 MG PO SCH (08:26)
[2018-03-19] MEDS: Insulin GLARGINE(*) 1 UNITS UNIT SUBCUT SCH ×2 (08:26→21:35)
[2018-03-19] MEDS: Nicotine PATCH 7 MG/24 HR* PATCH TRANSDERM SCH (08:27)
[2018-03-19] MEDS: Gabapentin CAP(*) 400 MG PO SCH ×2 (08:27→21:35)
[2018-03-19] MEDS: Cholecalciferol TAB* 1000 UNITS PO SCH (08:27)
[2018-03-19] MEDS: OXcarbazepine TAB(*) 300 MG PO SCH ×2 (08:27→18:15)
[2018-03-19] MEDS: Metoprolol Succinate XL TAB* 100 MG PO SCH ×2 (08:27→21:35)
[2018-03-19] MEDS: Atorvastatin* 20 MG TAB PO SCH (08:27)
[2018-03-19] MEDS ORDERED: Spiriva Inhaler DEVICE* 1 EACH DEVICE INH ONE (09:00)
[2018-03-19] MEDS ORDERED: Gabapentin CAP(*) 300 MG PO SCH (12:00)
[2018-03-19] MEDS ORDERED: Insulin LISPRO* 1 UNITS UNIT SUBCUT ONE (12:22)
--- NOTE | 2018-03-19 14:40 | PN ---
Subjective Date of Service: 03/19/18 Interval History: Patient seen and examined at bedside. Denies fever, chills, shortness of breath , chest discomfort, N/V/D. Pt states that he had a cinnamon roll, milk and corn flakes for breakfast and ice cream and apple stuffing for lunch. Pt states that he was started on Lantus over the weekend at home and has been taking it daily since he received all the correct supplies. Pt noted to have MSSA in wound culture of left LE, suspect this is skin contamination, there is no sign of infection at the site of the wound. Tele: Afib, rate 70-90's Family History: Unchanged from Admission Social History: Unchanged from Admission Past Medical History: Unchanged from Admission Objective Active Medications: Hydrocodone Bitart/Acetaminophen ([place] 5-325 Tab*) 1 tab PO Q4H PRN Reason: PAIN Alprazolam (Xanax Tab*) 0.5 mg PO BID PRN Reason: ANXIETY Atorvastatin Calcium (Lipitor*) 20 mg PO DAILY [facility] Cholecalciferol (Vitamin D Tab*) 2,000 units PO DAILY [facility] Dextrose (D50w Syringe 50 Ml*) 12.5 gm IV PUSH .FOR FS < 60 - SS PRN Reason: FS < 60 Digoxin (Lanoxin Tab*) 0.25 mg PO QPM [facility] Furosemide (Lasix Tab*) 40 mg PO BID [facility] Gabapentin (Neurontin Cap(*)) 600 mg PO 1200 [facility] Gabapentin (Neurontin Cap(*)) 1,200 mg PO BID [facility] Insulin Glargine (Lantus(*)) 25 units SUBCUT 0800,2000 [facility] Insulin Human Lispro (Humalog*) 0 units SUBCUT ACHS [facility] Loperamide HCl (Imodium Cap*) 2 mg PO Q6HR PRN Reason: LOOSE STOOLS Metoprolol Succinate (Toprol Xl Tab*) 100 mg PO BID [facility] Mometasone Furoate/Formoterol Fumar (Dulera 100/5 Mdi*) 2 puff INH BID PRN Reason: SHORTNESS OF BREATH Nicotine (Nicotine Patch 7 Mg/24 Hr*) 1 patch TRANSDERM DAILY [facility] Omeprazole (Prilosec Cap*) 20 mg PO DAILY [facility] Oxcarbazepine (Trileptal Tab(*)) 300 mg PO QAM [facility] Oxcarbazepine (Trileptal Tab(*)) 600 mg PO QPM [facility] Pharmacy Profile Note (Nicotine Patch Removal Note*) 1 note PATCH OFF 2100 [facility] Potassium Chloride (Klor Con Er Tab*) 10 meq PO BEDTIME [facility] Tiotropium [place] (Spiriva Cap.Inh*) 1 cap INH DAILY [facility] Vital Signs - 8 hr 03/19/18 03/19/18 03/19/18 08:01 08:22 08:27 Temperature 98.1 F Pulse Rate 80 82 Respiratory 14 18 Rate Blood Pressure (mmHg) O2 Sat by Pulse 98 97 Oximetry 03/19/18 03/19/18 03/19/18 08:30 11:48 12:52 Temperature 98.1 F Pulse Rate 106 64 Respiratory 16 18 Rate Blood Pressure 139/41 104/55 (mmHg) O2 Sat by Pulse 95 Oximetry Oxygen Devices in Use Now: None Appearance: NAD, sitting up on the side of the bed Ears/Nose/Mouth/Throat: Mucous Membranes Moist Respiratory: Symmetrical Chest Expansion and Respiratory Effort, Clear to Auscultation Cardiovascular: NL Sounds; No Murmurs; No JVD, RRR Abdominal: NL Sounds; No Tenderness; No Distention Extremities: No Edema Skin: - - Chronic wound to left LE, no erythema note around the wound. Neurological: Alert and Oriented x 3, NL Muscle Strength and Tone Lines/Tubes/Other Access: Clean, Dry and Intact Peripheral IV - site benign Nutrition: Taking PO's Result Diagrams: 03/18/18 12:29 03/18/18 12:29 Assess/Plan/Problems-Billing Assessment: Mr. Berrios is a 67 yo male with PMH significant for systolic HF - EF 30%, CAD, A fib, HTN, CKD stage 3, COPD, JOSIAH, HLD, DM, GERD, and chronic neck pain who presented to the emergency room for hyperglycemia. - Patient Problems (1) Hyperglycemia Code(s): R73.9 - HYPERGLYCEMIA, UNSPECIFIED SNOMED Code(s): 71154898 Comment: - Glucose 270-420's - Continue Lantus and Lispro SS (2) Type 2 diabetes mellitus Comment: - With hyperglycemia as above - Hold metformin - Continue Lantus and Lispro SS (3) Elevated troponin Code(s): R79.89 - OTHER SPECIFIED ABNORMAL FINDINGS OF BLOOD CHEMISTRY SNOMED Code(s): 103328751 Comment: - Denies chest pain - Suspect this is his baseline - No further work-up at this time (4) Atrial fibrillation Code(s): I48.91 - UNSPECIFIED ATRIAL FIBRILLATION SNOMED Code(s): 81856926 Comment: - Rate controlled - Continue metoprolol, digoxin, and Eliquis (5) CAD (coronary artery disease) Code(s): I25.10 - ATHSCL HEART DISEASE OF [place] CORONARY ARTERY W/O ANG PCTRS SNOMED Code(s): 60168975 Comment: - Troponin elevated, suspect this is baseline - Continue atorvastatin and metoprolol (6) CKD (chronic kidney disease) stage 3, GFR 30-59 ml/min Code(s): N18.3 - CHRONIC KIDNEY DISEASE, STAGE 3 (MODERATE) SNOMED Code(s): 340750375 Comment: - At baseline (7) COPD (chronic obstructive pulmonary disease) Code(s): J44.9 - CHRONIC OBSTRUCTIVE PULMONARY DISEASE, UNSPECIFIED SNOMED Code(s): 89770189 Comment: - No signs of exacerbation. - Continue spiriva, dulera and prn albuterol (8) GERD (gastroesophageal reflux disease) Code(s): K21.9 - GASTRO-ESOPHAGEAL REFLUX DISEASE WITHOUT ESOPHAGITIS SNOMED Code(s): 414652515 Comment: - Continue protonix. (9) HLD (hyperlipidemia) Code(s): E78.5 - HYPERLIPIDEMIA, UNSPECIFIED SNOMED Code(s): 84792459 Comment: - Continue atorvastatin (10) History of CVA (cerebrovascular accident) Code(s): Z86.73 - PRSNL HX OF TIA (TIA), AND CEREB INFRC W/O RESID DEFICITS SNOMED Code(s): 914587542 (11) Hypertrophic cardiomyopathy Comment: - No signs of acute exacerbatin at this time - Daily weights and strict I+O's - Continue Lasix (12) JOSIAH (obstructive sleep apnea) Code(s): G47.33 - OBSTRUCTIVE SLEEP APNEA (ADULT) (PEDIATRIC) SNOMED Code(s): 46944535 Comment: - Pt does not use CPAP (states he does not tolerate). - He was prescribed nocturnal O2 but states he frequently does not use it. (13) PTSD (post-traumatic stress disorder) Code(s): F43.10 - POST-TRAUMATIC STRESS DISORDER, UNSPECIFIED SNOMED Code(s): 01427879 Comment: - Continue supportive care (14) Peripheral neuropathy Code(s): G62.9 - POLYNEUROPATHY, UNSPECIFIED SNOMED Code(s): 427347079 Comment: - Continue gabapentin (15) Tobacco abuse Code(s): Z72.0 - TOBACCO USE SNOMED Code(s): 390857505 Comment: - Quit about 2 years ago - Continue Nicotine replacement (16) Carotid stenosis Code(s): I65.29 - OCCLUSION AND STENOSIS OF UNSPECIFIED CAROTID ARTERY SNOMED Code(s): 73831630 (17) DVT prophylaxis Code(s): IPL1126 - SNOMED Code(s): 524872598 Comment: - Continue Eliquis (18) Full code status Code(s): Z78.9 - OTHER SPECIFIED HEALTH STATUS SNOMED Code(s): 542035265 Status and Disposition: OBV. Discharge to home when medically stable.
[2018-03-19] MEDS: Digoxin TAB* 0.25 MG PO SCH (18:16)
[2018-03-19] MEDS: Mometasone/Formoter 100/5 MDI INH SCH (20:14)
[2018-03-19] MEDS ORDERED: Nicotine Patch Removal NOTE PATCH OFF SCH (21:00)
[2018-03-19] MEDS: Potassium Chlor TAB* 10 MEQ TAB.ER PO SCH (21:35)
[2018-03-19] MEDS: HYDROcodone/ACETAMIN 5-325 MG* 1 TAB PO PRN (23:04)
[2018-03-20 06:39] LABS: ABS Basophils 0.1 10^3/ul (0-0.2); ABS Eosinophils 0.2 10^3/ul (0-0.6); ABS Lymphocytes 0.9 10^3/ul (1.0-4.8); ABS Monocytes 0.5 10^3/ul (0-0.8); ABS Neutrophils 4.8 10^3/ul (1.5-7.7); ABS Nucleated RBC 0 10^3/ul; Eosinophil % 2.4 % (0-6); Hematocrit 32 % (42-52); Hemoglobin 9.9 g/dl (14.0-18.0); Lymphocyte % 13.5 % (25-47); Mean Corpuscular HGB Conc 31 g/dl (31-36); Mean Corpuscular Hemoglobin 23 pg (27-31); Mean Corpuscular Volume 74 fL (80-94); Mean Platelet Volume 9.3 um3 (7.4-10.4); Nucleated Red Blood Cells % 0.1; Platelet Count 154 10^3/ul (150-450); Red Blood Count 4.36 10^6/ul (4.0-5.4); Red Cell Distribution Width 19 % (10.5-15); White Blood Count 6.5 10^3/ul (3.5-10.8)
[2018-03-20 06:46] LABS: EGFR Non-African American 67.3 (>60)
[2018-03-20] MEDS: Mometasone/Formoter 100/5 MDI INH SCH (07:49)
[2018-03-20] MEDS: Tiotropium CAP.INH* CAP.INH/18 MCG (USE ORDER SET !) INH SCH (07:49)
[2018-03-20] MEDS ORDERED: Insulin GLARGINE(*) 1 UNITS UNIT SUBCUT ONE (08:10)
--- NOTE | 2018-03-20 08:48 | PN ---
Subjective Date of Service: 03/20/18 Interval History: Patient seen and examined at bedside. Denies fever, chills, shortness of breath , chest discomfort, N/V/D. Pt states that he feels well today. Tele: Afib, rate 70-90's Family History: Unchanged from Admission Social History: Unchanged from Admission Past Medical History: Unchanged from Admission Objective Active Medications: Hydrocodone Bitart/Acetaminophen ([place] 5-325 Tab*) 1 tab PO Q4H PRN Reason: PAIN Alprazolam (Xanax Tab*) 0.5 mg PO BID PRN Reason: ANXIETY Atorvastatin Calcium (Lipitor*) 20 mg PO DAILY [facility] Cholecalciferol (Vitamin D Tab*) 2,000 units PO DAILY [facility] Dextrose (D50w Syringe 50 Ml*) 12.5 gm IV PUSH .FOR FS < 60 - SS PRN Reason: FS < 60 Digoxin (Lanoxin Tab*) 0.25 mg PO QPM [facility] Gabapentin (Neurontin Cap(*)) 600 mg PO 1200 [facility] Gabapentin (Neurontin Cap(*)) 1,200 mg PO BID [facility] Insulin Human Lispro (Humalog*) 0 units SUBCUT ACHS [facility] Loperamide HCl (Imodium Cap*) 2 mg PO Q6HR PRN Reason: LOOSE STOOLS Metoprolol Succinate (Toprol Xl Tab*) 100 mg PO BID [facility] Mometasone Furoate/Formoterol Fumar (Dulera 100/5 Mdi*) 2 puff INH BID [facility] Nicotine (Nicotine Patch 7 Mg/24 Hr*) 1 patch TRANSDERM DAILY [facility] Omeprazole (Prilosec Cap*) 20 mg PO DAILY [facility] Oxcarbazepine (Trileptal Tab(*)) 300 mg PO QAM [facility] Oxcarbazepine (Trileptal Tab(*)) 600 mg PO QPM [facility] Pharmacy Profile Note (Nicotine Patch Removal Note*) 1 note PATCH OFF 2100 [facility] Potassium Chloride (Klor Con Er Tab*) 10 meq PO BEDTIME [facility] Tiotropium [place] (Spiriva Cap.Inh*) 1 cap INH DAILY [facility] Vital Signs - 8 hr 03/20/18 03/20/18 03:08 03:21 Temperature 97.8 F Pulse Rate 92 Respiratory 16 16 Rate Blood Pressure 116/58 (mmHg) O2 Sat by Pulse 94 Oximetry Oxygen Devices in Use Now: None Appearance: NAD, sitting up in bed Ears/Nose/Mouth/Throat: Mucous Membranes Moist Respiratory: Symmetrical Chest Expansion and Respiratory Effort, Clear to Auscultation Cardiovascular: NL Sounds; No Murmurs; No JVD, RRR Abdominal: NL Sounds; No Tenderness; No Distention Extremities: No Edema Skin: - - Dressing to left LE clean, dry and intact Neurological: Alert and Oriented x 3, NL Muscle Strength and Tone Lines/Tubes/Other Access: Clean, Dry and Intact Peripheral IV - site benign Nutrition: Taking PO's Result Diagrams: 03/20/18 05:49 03/20/18 05:49 Assess/Plan/Problems-Billing Assessment: Mr. Berrios is a 67 yo male with PMH significant for systolic HF - EF 30%, CAD, A fib, HTN, CKD stage 3, COPD, JOSIAH, HLD, DM, GERD, and chronic neck pain who presented to the emergency room for hyperglycemia. - Patient Problems (1) Hyperglycemia Code(s): R73.9 - HYPERGLYCEMIA, UNSPECIFIED SNOMED Code(s): 06482233 Comment: - Glucose 250-300's - Continue Lantus (increase to 30 BID) and Lispro 5 units AC at discharge - Will give 10 units Lantus this AM prior to surgery later today (2) Type 2 diabetes mellitus Comment: - With hyperglycemia as above - Hold metformin - Continue Lantus and Lispro as above (3) Elevated troponin Code(s): R79.89 - OTHER SPECIFIED ABNORMAL FINDINGS OF BLOOD CHEMISTRY SNOMED Code(s): 711572011 Comment: - Denies chest pain - Suspect this is his baseline - No further work-up at this time (4) Atrial fibrillation Code(s): I48.91 - UNSPECIFIED ATRIAL FIBRILLATION SNOMED Code(s): 27618580 Comment: - Rate controlled - Continue metoprolol, digoxin, and Eliquis (on hold for surgery, resume after surgery) (5) CAD (coronary artery disease) Code(s): I25.10 - ATHSCL HEART DISEASE OF [place] CORONARY ARTERY W/O ANG PCTRS SNOMED Code(s): 55499217 Comment: - Troponin elevated, suspect this is baseline - Continue atorvastatin and metoprolol (6) CKD (chronic kidney disease) stage 3, GFR 30-59 ml/min Code(s): N18.3 - CHRONIC KIDNEY DISEASE, STAGE 3 (MODERATE) SNOMED Code(s): 413304436 Comment: - At baseline (7) COPD (chronic obstructive pulmonary disease) Code(s): J44.9 - CHRONIC OBSTRUCTIVE PULMONARY DISEASE, UNSPECIFIED SNOMED Code(s): 52389202 Comment: - No signs of exacerbation. - Continue spiriva, dulera and prn albuterol (8) GERD (gastroesophageal reflux disease) Code(s): K21.9 - GASTRO-ESOPHAGEAL REFLUX DISEASE WITHOUT ESOPHAGITIS SNOMED Code(s): 984522063 Comment: - Continue protonix. (9) HLD (hyperlipidemia) Code(s): E78.5 - HYPERLIPIDEMIA, UNSPECIFIED SNOMED Code(s): 07735685 Comment: - Continue atorvastatin (10) History of CVA (cerebrovascular accident) Code(s): Z86.73 - PRSNL HX OF TIA (TIA), AND CEREB INFRC W/O RESID DEFICITS SNOMED Code(s): 365643921 (11) Hypertrophic cardiomyopathy Comment: - No signs of acute exacerbatin at this time - Daily weights and strict I+O's - Continue Lasix (hold this AM for surgery) (12) JOSIAH (obstructive sleep apnea) Code(s): G47.33 - OBSTRUCTIVE SLEEP APNEA (ADULT) (PEDIATRIC) SNOMED Code(s): 33427305 Comment: - Pt does not use CPAP (states he does not tolerate). - He was prescribed nocturnal O2 but states he frequently does not use it. (13) PTSD (post-traumatic stress disorder) Code(s): F43.10 - POST-TRAUMATIC STRESS DISORDER, UNSPECIFIED SNOMED Code(s): 80063170 Comment: - Continue supportive care (14) Peripheral neuropathy Code(s): G62.9 - POLYNEUROPATHY, UNSPECIFIED SNOMED Code(s): 325947536 Comment: - Continue gabapentin (15) Tobacco abuse Code(s): Z72.0 - TOBACCO USE SNOMED Code(s): 214073322 Comment: - Quit about 2 years ago - Continue Nicotine replacement (16) Carotid stenosis Code(s): I65.29 - OCCLUSION AND STENOSIS OF UNSPECIFIED CAROTID ARTERY SNOMED Code(s): 90253035 (17) DVT prophylaxis Code(s): AUE5442 - SNOMED Code(s): 404718936 Comment: - Resume Eliquis after surgery (18) Full code status Code(s): Z78.9 - OTHER SPECIFIED HEALTH STATUS SNOMED Code(s): 240701146 Status and Disposition: OBV. Stable for discharge to home today. Pt plans to drive to the [facility] for a skin graft procedure later today.
[2018-03-20] MEDS: Insulin LISPRO* 1 UNITS UNIT SUBCUT SCH (09:20)
[2018-03-20] MEDS: Nicotine PATCH 7 MG/24 HR* PATCH TRANSDERM SCH (09:29)
[2018-03-20] MEDS: Gabapentin CAP(*) 400 MG PO SCH (09:29)
[2018-03-20] MEDS: OXcarbazepine TAB(*) 300 MG PO SCH (09:29)
[2018-03-20] MEDS: Omeprazole CAP* 20 MG PO SCH (09:30)
[2018-03-20] MEDS: Metoprolol Succinate XL TAB* 100 MG PO SCH (09:30)
[2018-03-20] MEDS: Atorvastatin* 20 MG TAB PO SCH (09:30)
[2018-03-20] MEDS: Cholecalciferol TAB* 1000 UNITS PO SCH (09:30)
[2018-03-20 09:34] VITALS: BP 106/64
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
--- NOTE | 2018-03-21 18:20 | DS ---
CC: Dr. Andrea Morgan, [facility]. * DISCHARGE SUMMARY: DATE OF ADMISSION: 03/18/18 DATE OF DISCHARGE: 03/20/18 ATTENDING PHYSICIAN: Dr. Christofer Marrero * (dictated by Carlos Murray NP). PRIMARY CARE PROVIDER: Dr. Andrea Morgan at the [facility]. PRIMARY DIAGNOSES: 1. Hyperglycemia in the setting of diabetes mellitus type 2. 2. Elevated troponin, suspect at baseline. SECONDARY DIAGNOSES: 1. Atrial fibrillation. 2. Coronary artery disease. 3. Chronic kidney disease. 4. Chronic obstructive pulmonary disease. 5. Gastroesophageal reflux disease. 6. Hyperlipidemia. 7. History of cerebrovascular accident. 8. Hypertrophic cardiomyopathy. 9. Obstructive sleep apnea. 10. Post-traumatic stress disorder. 11. Peripheral neuropathy. 12. Tobacco abuse. 13. Carotid stenosis. 14. Chronic right lower extremity wound. STUDIES WHILE IN THE HOSPITAL: Chest x-ray on 03/18/18. Radiologist's impression: Cardiomegaly, COPD. DISCHARGE MEDICATIONS: New home medications: 1. Lispro insulin 5 units subcutaneous before meals. 2. Lantus insulin at 30 units subcutaneous twice daily. Continued home medications: 1. Imodium 2 mg oral every 6 hours as needed for loose stools. 2. Vitamin D 2000 units oral daily. 3. Protonix 40 mg oral daily. 4. Trileptal 30 mg oral every morning. 5. Nicotine patch 5 mg transdermal daily. 6. Metoprolol succinate 100 mg oral twice daily. 7. Potassium chloride 30 mg oral daily at bedtime. 8. Metformin 1000 mg oral daily. 10. Symbicort 80/4.5 2 puffs inhalation twice daily. 11. Atorvastatin 20 mg oral daily. 12. Xanax 0.5 mg oral twice daily as needed for anxiety. 13. Spiriva 1 capsule inhalation daily. 14. Lidocaine 2% gel apply twice daily as needed for discomfort. 15. Digoxin 0.25 mg every evening. 16. Ammonium lactate 12% topical twice daily as needed for dry skin. 17. Furosemide 40 mg oral daily. 18. Gabapentin 600 mg oral daily at noon. 19. Gabapentin 1200 mg oral twice daily. 20. Trileptal 600 mg oral every evening. 21. Lactose-Reduced Food 275 mL oral twice daily. 22. cream apply topical twice daily. 23. Athlete's Foot cream 2% topical twice daily as needed for itching. Medications on hold: Eliquis. HISTORY OF PRESENT ILLNESS/HOSPITAL COURSE: Mr. Berrios is 67-year-old male with past medical history significant for systolic heart failure, coronary artery disease, atrial fibrillation on Eliquis, hypertension, chronic kidney disease, COPD, obstructive sleep apnea, hyperlipidemia, diabetes mellitus, GERD, chronic low back pain, IBS and peripheral vascular disease who underwent a fem-pop bypass with complications spending 73 days in the [facility] and was discharged home. The patient reports that a few years back, he was taken off of his insulin and placed on metformin. The patient reports being seen at the [place] and being reported to have glucose in the 500s in which they placed him on Lantus. He picked up the prescription as the pharmacy was closing, got home to realize they do not have syringes and instead had vials of insulin. [facility], but then did not get the patient needles. The patient states that they finally got all the supplies to be doing insulin and he was doing 25 units of Lantus every evening for several days. His reports that he started becoming lethargic and not acting well. They checked a glucose at home, it was elevated up into the 400 to 500s. [facility] who [facility] they come to the emergency room. On emergency room, the patient initially had a glucose over 600. He received insulin and fluids in the emergency room with his glucoses improving. Due to his hyperglycemia, the hospitalist were asked to evaluate the patient for admission. During the patient's hospitalization, his glucoses on the first day of admission had started to become better controlled, but then after eating a cinnamon roll, cornflakes and milk for breakfast in addition to his lunch he had a glucose over 400. It was recommended the patient stay overnight while we adjusted his medications to get his glucose better controlled. On the day of discharge, the patient's glucoses were down into the 200s versus other medical conditions he was doing well. He had no signs of an acute heart failure exacerbation. His heart rate was controlled. His pain was controlled. The patient did have blood cultures drawn in the emergency room with no growth on day #2 with blood cultures negative on day #1. His left leg chronic wound was swabbed showing Staph aureus positive. I suspected this was likely a skin contaminant. He was not placed on any antibiotics as his wound had no signs of erythema or infection. The patient also had his Lantus adjusted to twice daily dosing in addition to lispro with meals. Mr. Berrios is stable for discharge today. Vitals are as follows; temperature 97.9, heart rate 91, respiratory 16, O2 sat 100% on room air, blood pressure 106 /64. DISCHARGE PLAN: Mr. Berrios will be discharged to home to travel to the [facility] to have a skin graft procedure later today. The activity as tolerated. He will be n.p.o. until his procedure, at which time he can go back on his consistent carbohydrate low-sodium diet. In regards to his hyperglycemia, he has been placed on Lantus 30 units subcutaneous twice daily with lispro 5 units with meals. He has also been continued on his home metformin. He has been asked to keep a log of his glucoses and to bring this to the doctor's appointment, so that they are able to adjust his medications accordingly. He has been continued on all of his other usual home medications with the exception of his Eliquis that is on hold for surgery and will be resumed accordingly postoperatively. He has a followup appointment with his primary care, Dr. Andrea Morgan on 04/01/18 at 1:30 p.m. He has been asked to return to the emergency room for any chest pain, shortness of breath. Additionally, this day and close contact with his primary care provider regarding his glucoses. This is a summarized report of a complex medical history and hospital stay. For further details, please see the entire medical record. Please time for this discharge was approximately 50 minutes, greater than half of that was spent with the patient and his discussing discharge plans and instructions. Condition on discharge is improved. CARLOS BREWSTER, MAYA [id number]/[facility] #: [id number]
== END 2018-03-20 10:08 | disposition home or self-care (01) ==
LOC: ED 11:58 → MEDTELE 17:13
PROVIDERS: ADMIT Internal Medicine; ATTEND Student in an Organized Health Care Education/Training Program
DX: E11.65 Type 2 diabetes mellitus with hyperglycemia (principal); R74.8 Abnormal levels of other serum enzymes; I48.91 Unspecified atrial fibrillation; I25.10 Atherosclerotic heart disease of native coronary artery without angina pectoris; E78.5 Hyperlipidemia, unspecified; Z86.73 Personal history of transient ischemic attack (TIA), and cerebral infarction without residual deficits; K21.9 Gastro-esophageal reflux disease without esophagitis; I42.9 Cardiomyopathy, unspecified; I51.7 Cardiomegaly; G47.33 Obstructive sleep apnea (adult) (pediatric); F43.10 Post-traumatic stress disorder, unspecified; I65.29 Occlusion and stenosis of unspecified carotid artery; Z88.8 Allergy status to other drugs, medicaments and biological substances; I13.0 Hypertensive heart and chronic kidney disease with heart failure and stage 1 through stage 4 chronic kidney disease, or unspecified chronic kidney disease; N18.3 Chronic kidney disease, stage 3 (moderate); I50.9 Heart failure, unspecified; J44.9 Chronic obstructive pulmonary disease, unspecified; Z79.899 Other long term (current) drug therapy; Z79.84 Long term (current) use of oral hypoglycemic drugs; Z79.01 Long term (current) use of anticoagulants; Z95.5 Presence of coronary angioplasty implant and graft; Z79.4 Long term (current) use of insulin; Z87.891 Personal history of nicotine dependence; Z88.0 Allergy status to penicillin; I45.2 Bifascicular block
CPT/HCPCS: 36415; 71046; 80048; 80053; 81003; 82550; 82947; 83605; 83735; 83880; 84443; 84484; 85025; 85610; 87040; 87070; 87077; 87186; 87205; 87640; 87641; 93005; 94640; 96360; 96361; 99284; A9270-GY; G0378

== ENCOUNTER 2018-05-22 18:44 | Inpatient (IN) | payer MEDICARE, OTHER ==
[2018-05-22] MEDS ORDERED: methylPREDNISolone 125 MG* 2 ML VIAL IM ONE (18:50)
[2018-05-22] MEDS ORDERED: Albuterol/Ipratropium NEB.SOL* Albuterol 2.5 MG/Ipratropium 0.5 MG 3 ML INH ONE (18:53)
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
[2018-05-22 19:05] LABS: Hematocrit 40 % (42-52); Hemoglobin 11.5 g/dl (14.0-18.0); Mean Corpuscular HGB Conc 29 g/dl (31-36); Mean Corpuscular Hemoglobin 21 pg (27-31); Mean Corpuscular Volume 71 fL (80-94); Mean Platelet Volume 9.3 um3 (7.4-10.4); Platelet Count 206 10^3/ul (150-450); Red Blood Count 5.57 10^6/ul (4.00-5.40); Red Cell Distribution Width 21 % (10.5-15); White Blood Count 14.2 10^3/ul (3.5-10.8)
[2018-05-22 19:20] LABS: EGFR Non-African American 51.2 (>60)
[2018-05-22 19:35] LABS: ABS Basophils 0 10^3/ul (0-0.2); ABS Eosinophils 0.2 10^3/ul (0-0.6); ABS Lymphocytes 2.6 10^3/ul (1.0-4.8); ABS Monocytes 0.8 10^3/ul (0-0.8); ABS Neutrophils 10.6 10^3/ul (1.5-7.7); ABS Nucleated RBC 0 10^3/ul; Eosinophil % 1.3 % (0-6); Lymphocyte % 18.3 % (25-47); Nucleated Red Blood Cells % 0.2
[2018-05-22] MEDS ORDERED: Furosemide IV* 10 MG/ML VIAL (40 MG) IV SLOW PU ONE ×2 (19:38→23:17)
--- NOTE | 2018-05-22 19:51 | RAD ---
Indication: Shortness of breath. Single frontal view of the chest performed at 1934 hours was reviewed. Comparison is made with previous exam dated October 27, 2017. Cardiomegaly is noted. Increased interstitial edema consistent with vascular congestion is noted. No alveolar consolidation is noted. IMPRESSION: CARDIOMEGALY WITH INTERSTITIAL EDEMA CONSISTENT WITH CHF.
[2018-05-22] MEDS ORDERED: HYDROcodone/ACETAMIN 5-325 MG* 1 TAB PO PRN (20:34)
[2018-05-22] MEDS ORDERED: PROCHLORPERAZINE INJ 5 MG/ML 2 ML VIAL IV PRN (20:34)
[2018-05-22] MEDS ORDERED: LORazepam TAB(*) 0.5 MG PO PRN (20:34)
[2018-05-22] MEDS ORDERED: HYPROMELLOSE BOTH EYES PRN (20:34)
[2018-05-22] MEDS ORDERED: DEXTRAN BOTH EYES PRN (20:34)
[2018-05-22] MEDS ORDERED: Acetaminophen TAB* 325 MG PO PRN (20:34)
[2018-05-22] MEDS ORDERED: Morphine INJ* 2 MG/ML 1 ML SYRINGE (TWO MG - NEW SYRINGE VERSION) IV PRN (20:34)
[2018-05-22] MEDS ORDERED: Loperamide CAP* 2 MG PO PRN (20:34)
[2018-05-22] MEDS ORDERED: Dextrose 50% Syringe 50 ML* 25 GM/50 ML SYRINGE IV PUSH PRN (20:59)
[2018-05-22] MEDS ORDERED: Mometasone/Formoter 100/5 MDI INH SCH (21:00)
[2018-05-22] MEDS ORDERED: OXcarbazepine TAB(*) 300 MG PO SCH (21:00)
[2018-05-22] MEDS ORDERED: Heparin VIAL(*) 5000 UNITS/ML VIAL (FIVE THOUSAND) SUBCUT SCH (22:00)
[2018-05-22 23:04] LABS: EGFR Non-African American 53.5 (>60)
[2018-05-22] MEDS: Gabapentin CAP(*) 300 MG PO SCH (23:21)
[2018-05-22] MEDS: Apixaban* 5 MG TAB PO SCH (23:21)
[2018-05-22] MEDS: Insulin GLARGINE(*) 1 UNITS UNIT SUBCUT SCH (23:21)
[2018-05-22] MEDS: Metoprolol Succinate XL TAB* 100 MG PO SCH (23:21)
[2018-05-22] MEDS ORDERED: Furosemide IV* 10 MG/ML VIAL (40 MG) ONE (23:28)
[2018-05-22] MEDS: Insulin LISPRO* 1 UNITS UNIT SUBCUT SCH (23:34)
[2018-05-23] MEDS: Dorzolamide 2% OPTH (NF) 10 ML BTL BOTH EYES SCH ×2 (01:21→08:13)
[2018-05-23] MEDS ORDERED: Insulin LISPRO* 1 UNITS UNIT SUBCUT ONE (02:04)
[2018-05-23] MEDS: Insulin LISPRO* 1 UNITS UNIT SUBCUT SCH ×2 (02:05→06:27)
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
[2018-05-23 06:00] LABS: ABS Basophils 0 10^3/ul (0-0.2); ABS Eosinophils 0 10^3/ul (0-0.6); ABS Lymphocytes 0.4 10^3/ul (1.0-4.8); ABS Monocytes 0.1 10^3/ul (0-0.8); ABS Neutrophils 9.2 10^3/ul (1.5-7.7); ABS Nucleated RBC 0 10^3/ul; Eosinophil % 0 % (0-6); Hematocrit 33 % (42-52); Hemoglobin 10.2 g/dl (14.0-18.0); Lymphocyte % 3.7 % (25-47); Mean Corpuscular HGB Conc 31 g/dl (31-36); Mean Corpuscular Hemoglobin 21 pg (27-31); Mean Corpuscular Volume 69 fL (80-94); Mean Platelet Volume 9.1 um3 (7.4-10.4); Nucleated Red Blood Cells % 0.2; Platelet Count 132 10^3/ul (150-450); Red Blood Count 4.79 10^6/ul (4.00-5.40); Red Cell Distribution Width 21 % (10.5-15); White Blood Count 9.8 10^3/ul (3.5-10.8)
[2018-05-23 06:20] LABS: EGFR Non-African American 53.5 (>60)
[2018-05-23] MEDS ORDERED: Omeprazole CAP* 20 MG PO SCH (07:30)
[2018-05-23] MEDS: Gabapentin CAP(*) 300 MG PO SCH (08:01)
[2018-05-23] MEDS: Apixaban* 5 MG TAB PO SCH (08:01)
[2018-05-23] MEDS: Metoprolol Succinate XL TAB* 100 MG PO SCH (08:01)
[2018-05-23] MEDS: Insulin GLARGINE(*) 1 UNITS UNIT SUBCUT SCH (08:03)
--- NOTE | 2018-05-23 08:19 | PN ---
Subjective Date of Service: 05/23/18 Interval History: Feels back to normal. He states he only omitted furosemide [facility] one [facility]. He has a scale but doesn't weigh himself much. He never has pedal edema. On a low-salt diet. Objective Active Medications: Acetaminophen (Tylenol Tab*) 650 mg PO Q6H PRN PRN Reason: pain/fever Hydrocodone Bitart/Acetaminophen ([place] 5-325 Tab*) 1 tab PO BID PRN PRN Reason: PAIN Last Admin: 05/23/18 05:51 Dose: 1 tab Apixaban (Eliquis*) 5 mg PO BID [facility] Last Admin: 05/22/18 23:21 Dose: 5 mg Atorvastatin Calcium (Lipitor*) 20 mg PO DAILY [facility] Device (Tiotropium Inhaler Device*) 1 each INH 0900 ONE Stop: 05/23/18 09:01 Dextrose (D50w Syringe 50 Ml*) 12.5 gm IV PUSH .FOR FS < 60 - SS PRN PRN Reason: FS < 60 Digoxin (Lanoxin Tab*) 0.125 mg PO DAILY [facility] Dorzolamide HCl (Trusopt 2% Opth (Nf)) 1 drop BOTH EYES BID [facility]; Protocol Last Admin: 05/23/18 01:21 Dose: Not Given Gabapentin (Neurontin Cap(*)) 1,200 mg PO TID [facility] Last Admin: 05/22/18 23:21 Dose: 1,200 mg Insulin Glargine (Lantus(*)) 16 units SUBCUT BID [facility] Last Admin: 05/22/18 23:21 Dose: 16 units Insulin Human Lispro (Humalog*) 0 units SUBCUT Q4HR [facility]; Protocol Last Admin: 05/23/18 06:27 Dose: 12 units Loperamide HCl (Imodium Cap*) 2 mg PO Q6H PRN PRN Reason: DIARRHEA Lorazepam (Ativan Tab(*)) 0.5 mg PO BID PRN PRN Reason: ANXIETY Last Admin: 05/23/18 00:31 Dose: 0.5 mg Metoprolol Succinate (Toprol Xl Tab*) 100 mg PO BID [facility] Last Admin: 05/22/18 23:21 Dose: 100 mg Mometasone Furoate/Formoterol Fumar (Dulera 100/5 Mdi*) 2 puff INH BID [facility] Last Admin: 05/23/18 00:15 Dose: Not Given Morphine Sulfate (Morphine Inj ((Syringe))*) 2 mg IV Q4H PRN PRN Reason: PAIN Nicotine (Nicotine Patch 7 Mg/24 Hr*) 1 patch TRANSDERM DAILY [facility] Non-Formulary Medication (Dextran 70/Hypromellose [Artificial Tears]) 1 drop BOTH EYES QID PRN PRN Reason: Dry eyes Omeprazole (Prilosec Cap*) 20 mg PO DAILY@0730 [facility] Oxcarbazepine (Trileptal Tab(*)) 600 mg PO QPM [facility] Last Admin: 05/22/18 23:21 Dose: 600 mg Oxcarbazepine (Trileptal Tab(*)) 300 mg PO QAM [facility] Potassium Chloride (Klor Con Er Tab*) 20 meq PO DAILY [facility] Prochlorperazine Edisylate (Compazine Inj*) 5 mg IV Q6H PRN PRN Reason: NAUSEA/VOMITING Tamsulosin HCl (Flomax Cap*) 0.4 mg PO DAILY [facility] Tiotropium [place] (Spiriva Cap.Inh*) 1 cap INH DAILY [facility] Vital Signs - 8 hr 05/23/18 05/23/18 05/23/18 00:17 00:31 00:32 Temperature Pulse Rate 95 94 Respiratory 25 26 21 Rate Blood Pressure 115/67 (mmHg) O2 Sat by Pulse 94 93 Oximetry 05/23/18 05/23/18 05/23/18 00:46 01:00 01:16 Temperature Pulse Rate 87 94 98 Respiratory 22 25 27 Rate Blood Pressure 109/73 111/69 112/59 (mmHg) O2 Sat by Pulse 95 95 95 Oximetry 05/23/18 05/23/18 05/23/18 01:46 01:51 02:00 Temperature Pulse Rate 86 88 Respiratory 25 18 12 Rate Blood Pressure 97/77 (mmHg) O2 Sat by Pulse 97 98 Oximetry 05/23/18 05/23/18 05/23/18 02:02 02:31 02:45 Temperature Pulse Rate 78 83 80 Respiratory 32 18 21 Rate Blood Pressure 92/53 106/55 98/62 (mmHg) O2 Sat by Pulse 97 96 99 Oximetry 05/23/18 05/23/18 05/23/18 03:00 03:15 03:20 Temperature Pulse Rate 99 76 Respiratory 27 19 20 Rate Blood Pressure 117/60 113/70 (mmHg) O2 Sat by Pulse 99 98 Oximetry 05/23/18 05/23/18 05/23/18 03:30 03:46 04:00 Temperature Pulse Rate 84 80 86 Respiratory 23 20 20 Rate Blood Pressure 97/56 112/74 114/70 (mmHg) O2 Sat by Pulse 97 100 97 Oximetry 05/23/18 05/23/18 05/23/18 04:16 04:30 04:45 Temperature Pulse Rate 101 84 86 Respiratory 34 19 19 Rate Blood Pressure 97/75 119/49 116/68 (mmHg) O2 Sat by Pulse 83 100 100 Oximetry 05/23/18 05/23/18 05/23/18 05:00 05:03 05:15 Temperature 97.7 F Pulse Rate 89 91 Respiratory 26 20 27 Rate Blood Pressure 109/62 103/72 (mmHg) O2 Sat by Pulse 100 100 Oximetry 05/23/18 05/23/18 05/23/18 06:00 06:03 06:46 Temperature Pulse Rate 87 Respiratory 21 16 26 Rate Blood Pressure 99/51 (mmHg) O2 Sat by Pulse 100 Oximetry 05/23/18 05/23/18 07:00 07:46 Temperature 98.8 F Pulse Rate 93 Respiratory 22 Rate Blood Pressure (mmHg) O2 Sat by Pulse 86 Oximetry Oxygen Devices in Use Now: Nasal Cannula Appearance: Alert, sitting up on ICU bed. In good spirits. Looks comfortable. Eyes: No Scleral Icterus Respiratory: Symmetrical Chest Expansion and Respiratory Effort, Clear to Auscultation, Clear to Percussion Cardiovascular: NL Sounds; No Murmurs; No JVD, No Edema, - - irreg Extremities: No Edema, No Clubbing, Cyanosis, - Skin: No Nodules or Sclerosis, - - L lower pretibial area bandaged. Neurological: Alert and Oriented x 3, NL Sensation Result Diagrams: 05/23/18 05:42 05/23/18 05:42 Microbiology and Other Data: Microbiology 05/22/18 22:02 Nasal Screen MRSA (PCR) - Final Nasal Mrsa Not Detected Assess/Plan/Problems-Billing Assessment: - Patient Problems (1) Acute systolic (congestive) heart failure Current Visit: No Status: Acute Priority: High Code(s): I50.21 - ACUTE SYSTOLIC (CONGESTIVE) HEART FAILURE SNOMED Code(s): 873593919 Comment: Back to baseline subjectively. No edema or JVD. I discussed the importance of diet and daily weights with the pt and his . [facility] [place] [facility]. [facility] scheduled to visit him 05/27. (2) Lactic acidosis Current Visit: No Status: Acute Priority: Medium Onset Date: 11/05/14 Code(s): E87.2 - ACIDOSIS SNOMED Code(s): 75803536 Comment: - Secondary to poor perfusion and metformin. Pt advised to never use metformin again. (3) Tobacco abuse Current Visit: No Status: Chronic Code(s): Z72.0 - TOBACCO USE SNOMED Code (s): 424629968 Comment: Pt advised to quit smoking and avoid second hand smoke. His does not smoke. He states he smokes about 5 cigarettes per day. (4) Atrial fibrillation Current Visit: No Status: Chronic Priority: Medium Code(s): I48.91 - UNSPECIFIED ATRIAL FIBRILLATION SNOMED Code(s): 89424622 Comment: - Rate controlled - Continue metoprolol, digoxin, and Eliquis (5) COPD (chronic obstructive pulmonary disease) Current Visit: No Status: Chronic Priority: Medium Code(s): J44.9 - CHRONIC OBSTRUCTIVE PULMONARY DISEASE, UNSPECIFIED SNOMED Code(s): 27179005 Comment: Uses CPAP at home off and on. Uses O2 most of the time. - Continue spiriva, budesonide/formoterol and (?) prn albuterol Status and Disposition: Discharge home.
[2018-05-23] MEDS ORDERED: Insulin GLARGINE(*) 1 UNITS UNIT SUBCUT ONE (08:21)
[2018-05-23] MEDS ORDERED: Furosemide TAB* 40 MG ONE (08:50)
[2018-05-23] MEDS ORDERED: Spiriva Inhaler DEVICE* 1 EACH DEVICE INH ONE (09:00)
[2018-05-23] MEDS ORDERED: Potassium Chlor TAB* 10 MEQ TAB.ER PO SCH (09:00)
[2018-05-23] MEDS ORDERED: Atorvastatin* 20 MG TAB PO SCH (09:00)
[2018-05-23] MEDS ORDERED: Digoxin TAB* 0.125 MG PO SCH (09:00)
[2018-05-23] MEDS ORDERED: Furosemide IV* 10 MG/ML VIAL (40 MG) IV SLOW PU SCH (09:00)
[2018-05-23] MEDS ORDERED: Tamsulosin CAP* 0.4 MG PO SCH (09:00)
[2018-05-23] MEDS ORDERED: Tiotropium CAP.INH* CAP.INH/18 MCG (USE ORDER SET !) INH SCH (09:00)
[2018-05-23] MEDS ORDERED: Furosemide TAB* 40 MG PO SCH (09:00)
[2018-05-23] MEDS ORDERED: Nicotine PATCH 7 MG/24 HR* PATCH TRANSDERM SCH (09:00)
[2018-05-23] MEDS ORDERED: OXcarbazepine TAB(*) 300 MG PO SCH (09:00)
[2018-05-23 09:10] VITALS: BP 104/76
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
== END 2018-05-23 09:12 | disposition home or self-care (01) | DRG 291 ==
LOC: ED 18:44 → ICU 21:03
PROVIDERS: ADMIT Internal Medicine; ATTEND Internal Medicine
PROC: 5A09357 Assistance with Respiratory Ventilation, Less than 24 Consecutive Hours, Continuous Positive Airway Pressure (ICD-10-PCS; principal; 2018-05-22)
DX: I13.0 Hypertensive heart and chronic kidney disease with heart failure and stage 1 through stage 4 chronic kidney disease, or unspecified chronic kidney disease (principal); J96.21 Acute and chronic respiratory failure with hypoxia; I50.23 Acute on chronic systolic (congestive) heart failure; E87.2 Acidosis; I43 Cardiomyopathy in diseases classified elsewhere; E11.51 Type 2 diabetes mellitus with diabetic peripheral angiopathy without gangrene; I25.10 Atherosclerotic heart disease of native coronary artery without angina pectoris; E78.00 Pure hypercholesterolemia, unspecified; K21.9 Gastro-esophageal reflux disease without esophagitis; K58.9 Irritable bowel syndrome, unspecified; N40.0 Benign prostatic hyperplasia without lower urinary tract symptoms; F41.9 Anxiety disorder, unspecified; F32.9 Major depressive disorder, single episode, unspecified; F43.10 Post-traumatic stress disorder, unspecified; I48.91 Unspecified atrial fibrillation; N18.3 Chronic kidney disease, stage 3 (moderate); E11.22 Type 2 diabetes mellitus with diabetic chronic kidney disease; G47.33 Obstructive sleep apnea (adult) (pediatric); G89.29 Other chronic pain; M54.5 Low back pain; E11.42 Type 2 diabetes mellitus with diabetic polyneuropathy; F17.210 Nicotine dependence, cigarettes, uncomplicated; I45.10 Unspecified right bundle-branch block; E66.9 Obesity, unspecified; T38.3X5A Adverse effect of insulin and oral hypoglycemic [antidiabetic] drugs, initial encounter; R74.8 Abnormal levels of other serum enzymes; E11.65 Type 2 diabetes mellitus with hyperglycemia; J44.9 Chronic obstructive pulmonary disease, unspecified; Z93.2 Ileostomy status; Z68.35 Body mass index [BMI] 35.0-35.9, adult; Z99.81 Dependence on supplemental oxygen; Z88.8 Allergy status to other drugs, medicaments and biological substances; Z95.5 Presence of coronary angioplasty implant and graft; Z88.5 Allergy status to narcotic agent; Z88.0 Allergy status to penicillin; Z79.01 Long term (current) use of anticoagulants; Z79.4 Long term (current) use of insulin; Z86.73 Personal history of transient ischemic attack (TIA), and cerebral infarction without residual deficits
CPT/HCPCS: 36415; 71045; 80048; 80053; 82803; 82947; 83036; 83605; 83880; 84484; 85025; 87040; 87641; 93005; 94660; 99283; A9270-GY; J1940

== ENCOUNTER 2018-06-25 04:44 | Emergency (ER) | payer OTHER ==
[2018-06-25] MEDS ORDERED: Albuterol/Ipratropium NEB.SOL* Albuterol 2.5 MG/Ipratropium 0.5 MG 3 ML ONE (04:49)
[2018-06-25] MEDS ORDERED: Albuterol 2.5 MG/3 ML NEB.SOL* (0.083%) INH ONE (04:49)
[2018-06-25] MEDS ORDERED: Albuterol/Ipratropium NEB.SOL* Albuterol 2.5 MG/Ipratropium 0.5 MG 3 ML INH ONE (04:50)
[2018-06-25] MEDS ORDERED: methylPREDNISolone 125 MG* 2 ML VIAL IV ONE (04:52)
[2018-06-25] MEDS ORDERED: Magnesium Sulfate 2 GM IV* 2 GM/50 ML BAG IVPB ONE (04:52)
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
[2018-06-25] MEDS: Albuterol 2.5 MG/3 ML NEB.SOL* (0.083%) INH SCH ×2 (05:05→05:15)
[2018-06-25] MEDS ORDERED: Albuterol 2.5 MG/3 ML NEB.SOL* (0.083%) INH SCH (05:10)
[2018-06-25] MEDS ORDERED: Furosemide IV* 10 MG/ML VIAL (40 MG) IV ONE (05:38)
[2018-06-25 06:12] LABS: ABS Basophils 0 10^3/ul (0-0.2); ABS Eosinophils 0 10^3/ul (0-0.6); ABS Lymphocytes 0.6 10^3/ul (1.0-4.8); ABS Monocytes 0.4 10^3/ul (0-0.8); ABS Neutrophils 5.3 10^3/ul (1.5-7.7); ABS Nucleated RBC 0 10^3/ul; Eosinophil % 0.5 % (0-6); Hematocrit 35 % (42-52); Hemoglobin 10.6 g/dl (14.0-18.0); Lymphocyte % 8.9 % (25-47); Mean Corpuscular HGB Conc 30 g/dl (31-36); Mean Corpuscular Hemoglobin 21 pg (27-31); Mean Corpuscular Volume 69 fL (80-94); Mean Platelet Volume 8.8 um3 (7.4-10.4); Nucleated Red Blood Cells % 0.1; Platelet Count 155 10^3/ul (150-450); Red Blood Count 5.12 10^6/ul (4.00-5.40); Red Cell Distribution Width 21 % (10.5-15); White Blood Count 6.3 10^3/ul (3.5-10.8)
[2018-06-25 06:19] LABS: INR 1.07 (0.77-1.02)
[2018-06-25 06:30] LABS: EGFR Non-African American 53.5 (>60)
[2018-06-25] MEDS ORDERED: Insulin REGULAR(*) 1 UNITS UNIT IV PUSH ONE (06:32)
--- NOTE | 2018-06-25 07:44 | RAD ---
HISTORY: SOB COMPARISONS: May 22, 2018 VIEWS: 1: frontal portable view of the chest at 5:25 AM FINDINGS: LINES AND TUBES: None. CARDIOMEDIASTINAL SILHOUETTE: The cardiomediastinal silhouette is stable. PLEURA: The costophrenic angles are sharp. No pleural abnormalities are noted. LUNG PARENCHYMA: There is a diffuse reticular pattern with indistinct pulmonary vessels. This is somewhat improved from the previous examination. ABDOMEN: The upper abdomen is clear. There is no subphrenic gas. BONES AND SOFT TISSUES: No bone or soft tissue abnormalities are noted. IMPRESSION: PULMONARY INTERSTITIAL EDEMA R0
[2018-06-25 09:26] VITALS: BP 93/69
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
== END 2018-06-25 09:20 | disposition left against medical advice (07) ==
LOC: ED 04:44
DX: J44.9 Chronic obstructive pulmonary disease, unspecified (principal); I50.9 Heart failure, unspecified; R07.9 Chest pain, unspecified; R05 Cough; Z88.0 Allergy status to penicillin; Z79.01 Long term (current) use of anticoagulants; Z87.891 Personal history of nicotine dependence; R06.02 Shortness of breath
CPT/HCPCS: 36415; 71045; 80053; 83605; 83880; 84484; 85025; 85610; 85730; 87040; 93005; 96365; 99283; A9270-GY; J1940; J2930; J3475

== ENCOUNTER 2018-08-07 19:21 | Emergency (ER) | payer MEDICARE, OTHER ==
[2018-08-08 00:34] LABS: EGFR Non-African American 56.4 (>60)
[2018-08-08 00:37] LABS: ABS Basophils 0.1 10^3/ul (0-0.2); ABS Eosinophils 0.1 10^3/ul (0-0.6); ABS Lymphocytes 0.9 10^3/ul (1.0-4.8); ABS Monocytes 0.9 10^3/ul (0-0.8); ABS Neutrophils 8.1 10^3/ul (1.5-7.7); ABS Nucleated RBC 0 10^3/ul; Eosinophil % 1.3 % (0-6); Hematocrit 29 % (42-52); Hemoglobin 8.9 g/dl (14.0-18.0); Lymphocyte % 8.6 % (25-47); Mean Corpuscular HGB Conc 31 g/dl (31-36); Mean Corpuscular Hemoglobin 22 pg (27-31); Mean Corpuscular Volume 71 fL (80-94); Mean Platelet Volume 8.8 um3 (7.4-10.4); Nucleated Red Blood Cells % 0.2; Platelet Count 180 10^3/ul (150-450); Red Blood Count 4.11 10^6/ul (4.00-5.40); Red Cell Distribution Width 22 % (10.5-15); White Blood Count 10.1 10^3/ul (3.5-10.8)
[2018-08-08] MEDS ORDERED: Vancomycin(*) 1,000 MG in NS 0.9% 250 ML* 250 ML IVPB ONE (01:51)
[2018-08-08] MEDS ORDERED: Lidocaine 2% EPI 1:200000 MPF*10-20 ML VIAL INJ ONE (01:54)
[2018-08-08] MEDS ORDERED: Morphine VIAL* 10 MG/ML 1 ML VIAL IV ONE (02:13)
[2018-08-08] MEDS ORDERED: Ondansetron INJ* 2 MG/ML VIAL IV ONE (02:13)
[2018-08-08] MEDS ORDERED: Morphine INJ* 4 MG/ML 1 ML SYRINGE (NEW SYRINGE VERSION) ONE (02:26)
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
[2018-08-08] MEDS ORDERED: Levofloxacin TAB* 250 MG PO ONE (04:02)
[2018-08-08 05:31] VITALS: BP 126/50
== END 2018-08-08 05:15 | disposition short-term general hospital (02) ==
LOC: ED 19:21
DX: T81.41XA Infection following a procedure, superficial incisional surgical site, initial encounter (principal); L02.415 Cutaneous abscess of right lower limb; E11.9 Type 2 diabetes mellitus without complications; J44.9 Chronic obstructive pulmonary disease, unspecified; E78.5 Hyperlipidemia, unspecified; I48.91 Unspecified atrial fibrillation; I25.2 Old myocardial infarction; Z86.711 Personal history of pulmonary embolism; Z79.01 Long term (current) use of anticoagulants; I25.10 Atherosclerotic heart disease of native coronary artery without angina pectoris; K21.9 Gastro-esophageal reflux disease without esophagitis; Z87.891 Personal history of nicotine dependence; Y83.8 Other surgical procedures as the cause of abnormal reaction of the patient, or of later complication, without mention of misadventure at the time of the procedure; Y92.9 Unspecified place or not applicable
CPT/HCPCS: 10060; 36415; 80053; 83605; 85025; 86140; 87040; 87070; 87077; 87186; 87205; 87640; 87641; 96361; 96374; 96375; 99284; A9270-GY; J2270; J2405; J3370

== ENCOUNTER 2018-08-08 08:58 | Emergency (ER) | payer OTHER, MEDICARE ==
[2018-08-08 09:39] LABS: ABS Basophils 0.1 10^3/ul (0-0.2); ABS Eosinophils 0.1 10^3/ul (0-0.6); ABS Lymphocytes 0.5 10^3/ul (1.0-4.8); ABS Monocytes 0.7 10^3/ul (0-0.8); ABS Neutrophils 7.9 10^3/ul (1.5-7.7); ABS Nucleated RBC 0 10^3/ul; Eosinophil % 1.5 % (0-6); Hematocrit 30 % (42-52); Hemoglobin 8.8 g/dl (14.0-18.0); Lymphocyte % 5.3 % (25-47); Mean Corpuscular HGB Conc 30 g/dl (31-36); Mean Corpuscular Hemoglobin 21 pg (27-31); Mean Corpuscular Volume 72 fL (80-94); Mean Platelet Volume 9.4 um3 (7.4-10.4); Nucleated Red Blood Cells % 0.1; Platelet Count 191 10^3/ul (150-450); Red Blood Count 4.12 10^6/ul (4.00-5.40); Red Cell Distribution Width 22 % (10.5-15); White Blood Count 9.3 10^3/ul (3.5-10.8)
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
[2018-08-08] MEDS ORDERED: Nicotine Inhaler* 10 MG AMP INH ONE (13:44)
[2018-08-08] MEDS ORDERED: Mouth Piece, Nicotine* 1 EACH CARTRIDGE INH PRN (13:44)
[2018-08-08] MEDS ORDERED: Mouth Piece, Nicotine* 1 EACH CARTRIDGE ONE (13:47)
[2018-08-08] MEDS ORDERED: Nicotine Inhaler* 10 MG AMP ONE (16:11)
[2018-08-08 16:51] VITALS: BP 97/37
--- NOTE | 2018-08-09 14:44 | ED ---
Progress - Progress Note Progress Note: Patient's preliminary wound cultures returned negative for MRSA but positive for staph aureus. Patient presented with a postsurgical surgical wound infection. This area was drained and note reports copious drainage from seroma however no purulence. Patient was offered admission but declined. He was started on PO doxycycline and Levaquin. Spoke w/ pt's vascular surgeon from [facility] Dr. Strange who is now aware of these findings and requesting sensitivities be faxed as soon as they're available. Fax number is . Will notify charge nurse as well as next mid-level and ask that they continue to pass the message along until sensitivities are available to be faxed. Course/Dx - Course Course Of Treatment: Mr. Berrios to the emergency department this morning after having developed bleeding from his right groin wound at home. He was seen earlier and drained of a abscess/seroma. He was started on vancomycin IV but refused transfer at that time and was switched to Levaquin which I don't believe he has started yet. He presented with stable vitals and blood all over his underwear. A small amount of direct pressure was sufficient to stop any further bleeding. He was nontoxic in appearance and his hemoglobin was 8.8 compared to 8.9 at midnight. I spoke with Dr. Todd at [facility] emergency department and she accepted transfer for further workup. - Diagnoses Provider Diagnoses: Post-operative haemorrhage, Post-operative infection Discharge - Sign-Out/Discharge Documenting (check all that apply): Post-Discharge Follow Up - Discharge Plan Condition: Stable Disposition: TRANS HIGHER LVL OF CARE FAC Referrals: [facility] [Outside] Additional Instructions: Return to ED for any new or worsening symptoms - Billing Disposition and Condition Condition: STABLE Disposition: Trans Higher Lvl of Care Fac
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
== END 2018-08-08 16:53 | disposition short-term general hospital (02) ==
LOC: ED 08:58
DX: I97.620 Postprocedural hemorrhage of a circulatory system organ or structure following other procedure (principal); T81.41XA Infection following a procedure, superficial incisional surgical site, initial encounter; L03.314 Cellulitis of groin; B95.61 Methicillin susceptible Staphylococcus aureus infection as the cause of diseases classified elsewhere; Y83.8 Other surgical procedures as the cause of abnormal reaction of the patient, or of later complication, without mention of misadventure at the time of the procedure; I48.91 Unspecified atrial fibrillation; Z79.01 Long term (current) use of anticoagulants; Z91.030 Bee allergy status; Z88.5 Allergy status to narcotic agent; Z88.0 Allergy status to penicillin; Z91.013 Allergy to seafood; Z91.018 Allergy to other foods; Z91.048 Other nonmedicinal substance allergy status; Z87.891 Personal history of nicotine dependence
CPT/HCPCS: 36415; 85025; 99285; A9270-GY

== ENCOUNTER 2018-09-07 04:02 | Emergency (ER) | payer MEDICARE, OTHER ==
[2018-09-07] MEDS ORDERED: Furosemide IV* 10 MG/ML 10 ML VIAL (100 MG) IV ONE (04:12)
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
[2018-09-07 04:35] LABS: ABS Basophils 0.1 10^3/ul (0-0.2); ABS Eosinophils 0.1 10^3/ul (0-0.6); ABS Lymphocytes 0.5 10^3/ul (1.0-4.8); ABS Monocytes 0.4 10^3/ul (0-0.8); ABS Neutrophils 7.3 10^3/ul (1.5-7.7); ABS Nucleated RBC 0 10^3/ul; Eosinophil % 1.2 % (0-6); Hematocrit 31 % (42-52); Hemoglobin 9.2 g/dl (14.0-18.0); Lymphocyte % 5.7 % (25-47); Mean Corpuscular HGB Conc 30 g/dl (31-36); Mean Corpuscular Hemoglobin 20 pg (27-31); Mean Corpuscular Volume 68 fL (80-94); Mean Platelet Volume 8.6 fL (7.4-10.4); Nucleated Red Blood Cells % 0.1; Platelet Count 135 10^3/ul (150-450); Red Blood Count 4.54 10^6/ul (4.00-5.40); Red Cell Distribution Width 21 % (10.5-15); White Blood Count 8.4 10^3/ul (3.5-10.8)
[2018-09-07 04:39] LABS: INR 1.25 (0.77-1.02)
[2018-09-07 05:46] VITALS: BP 110/62
== END 2018-09-07 05:46 | disposition home or self-care (01) ==
LOC: ED 04:02
DX: I50.9 Heart failure, unspecified (principal); Z79.01 Long term (current) use of anticoagulants; F17.210 Nicotine dependence, cigarettes, uncomplicated; I25.10 Atherosclerotic heart disease of native coronary artery without angina pectoris; E78.00 Pure hypercholesterolemia, unspecified; I10 Essential (primary) hypertension; E11.9 Type 2 diabetes mellitus without complications; I42.2 Other hypertrophic cardiomyopathy; J44.9 Chronic obstructive pulmonary disease, unspecified; K21.9 Gastro-esophageal reflux disease without esophagitis; N40.0 Benign prostatic hyperplasia without lower urinary tract symptoms; I48.91 Unspecified atrial fibrillation; I45.10 Unspecified right bundle-branch block; I51.7 Cardiomegaly
CPT/HCPCS: 36415; 71046; 80053; 83605; 83880; 84484; 85025; 85610; 93005; 96374; 99282; J1940

== ENCOUNTER 2018-10-01 17:27 | Emergency (ER) | payer OTHER ==
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
[2018-10-01] MEDS ORDERED: predniSONE TAB* 20 MG PO ONE (18:06)
[2018-10-01 18:45] LABS: ABS Basophils 0.1 10^3/ul (0-0.2); ABS Eosinophils 0.1 10^3/ul (0-0.6); ABS Lymphocytes 0.5 10^3/ul (1.0-4.8); ABS Monocytes 0.4 10^3/ul (0-0.8); ABS Neutrophils 5.9 10^3/ul (1.5-7.7); ABS Nucleated RBC 0 10^3/ul; Eosinophil % 1.3 %; Hematocrit 32 % (42-52); Hemoglobin 9.6 g/dl (14.0-18.0); Lymphocyte % 6.9 %; Mean Corpuscular HGB Conc 30 g/dl (31-36); Mean Corpuscular Hemoglobin 20 pg (27-31); Mean Corpuscular Volume 68 fL (80-94); Mean Platelet Volume 8.9 fL (7.4-10.4); Nucleated Red Blood Cells % 0.2; Platelet Count 171 10^3/ul (150-450); Red Blood Count 4.76 10^6/ul (4.00-5.40); Red Cell Distribution Width 21 % (10.5-15); White Blood Count 7.1 10^3/ul (3.5-10.8)
[2018-10-01 18:53] LABS: EGFR Non-African American 64.5 (>60)
[2018-10-01] MEDS ORDERED: Furosemide TAB* 40 MG PO ONE (18:54)
[2018-10-01] MEDS ORDERED: Furosemide IV* 10 MG/ML VIAL (40 MG) IV SLOW PU ONE (18:58)
[2018-10-01 21:41] VITALS: BP 99/45
== END 2018-10-01 21:41 | disposition home or self-care (01) ==
LOC: ED 17:27
DX: I50.9 Heart failure, unspecified (principal); I48.91 Unspecified atrial fibrillation; I51.7 Cardiomegaly; J81.1 Chronic pulmonary edema
CPT/HCPCS: 36415; 71045; 80053; 80162; 83605; 83880; 84484; 85025; 93005; 99283; J1940; J7512

== ENCOUNTER 2018-10-21 20:42 | Emergency (ER) | payer OTHER ==
[2018-10-21] MEDS ORDERED: Morphine VIAL* 4 MG/ML VIAL (1 ml vial) IV ONE (22:08)
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
[2018-10-22 00:20] VITALS: BP 103/64
== END 2018-10-22 00:19 | disposition home or self-care (01) ==
LOC: ED 20:42
DX: S70.02XA Contusion of left hip, initial encounter (principal); S83.92XA Sprain of unspecified site of left knee, initial encounter; W01.0XXA Fall on same level from slipping, tripping and stumbling without subsequent striking against object, initial encounter; Y93.01 Activity, walking, marching and hiking; Y92.512 Supermarket, store or market as the place of occurrence of the external cause; I11.0 Hypertensive heart disease with heart failure; I50.9 Heart failure, unspecified; J44.9 Chronic obstructive pulmonary disease, unspecified; I25.119 Atherosclerotic heart disease of native coronary artery with unspecified angina pectoris; Z79.01 Long term (current) use of anticoagulants; Z91.030 Bee allergy status; Z88.5 Allergy status to narcotic agent; Z88.0 Allergy status to penicillin; Z91.013 Allergy to seafood; Z91.048 Other nonmedicinal substance allergy status; F17.210 Nicotine dependence, cigarettes, uncomplicated
CPT/HCPCS: 72110; 72192; 96374; 99283; J2270

== ENCOUNTER 2018-12-25 15:51 | Inpatient (IN) | payer OTHER ==
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
[2018-12-25] MEDS ORDERED: Furosemide IV* 10 MG/ML VIAL (40 MG) IV SLOW PU ONE (16:03)
[2018-12-25 16:34] LABS: ALT 16 U/L (7-52); AST 21 U/L (13-39); Albumin 3.9 g/dL (3.2-5.2); Albumin/Globulin Ratio 1.6 (1-3); Alkaline Phosphatase 127 U/L (34-104); Anion Gap 7 mmol/L (2-11); BUN/Creatinine Ratio 21.3 (8-20); Blood Urea Nitrogen 29 mg/dL (6-24); CO2 Carbon Dioxide 31 mmol/L (22-32); Calcium 8.7 mg/dL (8.6-10.3); Chloride 103 mmol/L (101-111); EGFR African American 62.9 (>60); Globulin 2.4 g/dL (2-4); Glucose 211 mg/dL (70-100); Potassium 4.3 mmol/L (3.5-5.0); Sodium 141 mmol/L (135-145); Total Protein 6.3 g/dL (6.4-8.9)
[2018-12-25 16:36] LABS: Troponin I 0.04 ng/mL (<0.04)
[2018-12-25 17:13] LABS: ABS Basophils 0.1 10^3/ul (0-0.2); ABS Eosinophils 0.1 10^3/ul (0-0.6); ABS Lymphocytes 0.5 10^3/ul (1.0-4.8); ABS Monocytes 0.5 10^3/ul (0-0.8); ABS Neutrophils 8.4 10^3/ul (1.5-7.7); ABS Nucleated RBC 0 10^3/ul; Eosinophil % 0.9 %; Hematocrit 38 % (42-52); Hemoglobin 12.2 g/dl (14.0-18.0); Lymphocyte % 5.7 %; Mean Corpuscular HGB Conc 32 g/dl (31-36); Mean Corpuscular Hemoglobin 28 pg (27-31); Mean Corpuscular Volume 86 fL (80-94); Mean Platelet Volume 9.2 fL (7.4-10.4); Nucleated Red Blood Cells % 0.1; Platelet Count 123 10^3/ul (150-450); Red Blood Count 4.35 10^6/ul (4.00-5.40); Red Cell Distribution Width 26 % (10.5-15); White Blood Count 9.6 10^3/ul (3.5-10.8)
[2018-12-25 17:22] LABS: Digoxin 0.7 ng/ml (0.8-2.0)
[2018-12-25] MEDS ORDERED: Dextrose 50% Syringe 50 ML* 25 GM/50 ML SYRINGE IV PUSH PRN (18:49)
[2018-12-25] MEDS ORDERED: Albuterol 2.5 MG/3 ML NEB.SOL* (0.083%) INH PRN (18:50)
[2018-12-25] MEDS ORDERED: Lidocaine 5% OINT TOPICAL PRN (18:50)
[2018-12-25] MEDS ORDERED: Loperamide CAP* 2 MG PO PRN (18:50)
[2018-12-25] MEDS ORDERED: oxyCODONE/Acetamin 5/325 MG* TAB PO PRN (18:53)
[2018-12-25] MEDS ORDERED: Albuterol/Ipratropium NEB.SOL* Albuterol 2.5 MG/Ipratropium 0.5 MG 3 ML INH PRN (18:53)
[2018-12-25] MEDS: LORazepam TAB(*) 0.5 MG PO PRN (20:21)
[2018-12-25] MEDS ORDERED: Nitro 2% OINT* (Nitroglycerin) 1 INCH/PAK PAK TOPICAL ONE (21:02)
[2018-12-25] MEDS ORDERED: Morphine INJ* 2 MG/ML 1 ML SYRINGE (TWO MG - NEW SYRINGE VERSION) IV ONE (21:03)
[2018-12-25] MEDS ORDERED: Morphine VIAL* 4 MG/ML VIAL (1 ml vial) ONE (21:07)
[2018-12-25] MEDS ORDERED: Morphine INJ* 2 MG/ML 1 ML SYRINGE (TWO MG - NEW SYRINGE VERSION) IV PRN (21:28)
--- NOTE | 2018-12-25 21:29 | PN ---
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 Morphine 2 mg IV given and feels much better. Will continue prn
[2018-12-25] MEDS: Senna TAB PO SCH (22:29)
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
[2018-12-26] MEDS: Metoprolol Succinate XL TAB* 100 MG PO SCH ×3 (00:14→22:04)
[2018-12-26] MEDS: Gabapentin CAP(*) 300 MG PO SCH ×3 (00:15→22:04)
[2018-12-26] MEDS: Furosemide TAB* 40 MG PO SCH ×2 (00:15→08:33)
[2018-12-26] MEDS: Apixaban* 5 MG TAB PO SCH ×3 (00:16→22:05)
[2018-12-26] MEDS: Insulin LISPRO* 1 UNITS UNIT SUBCUT SCH ×5 (00:38→22:08)
[2018-12-26] MEDS ORDERED: HYDROcodone/ACETAMIN 5-325 MG* 1 TAB PO PRN (02:32)
[2018-12-26] MEDS: Insulin GLARGINE(*) 1 UNITS UNIT SUBCUT SCH (08:28)
[2018-12-26] MEDS: Atorvastatin* 20 MG TAB PO SCH (08:30)
[2018-12-26] MEDS: Potassium Chlor TAB* 10 MEQ TAB.ER PO SCH (08:31)
[2018-12-26] MEDS: Clopidogrel TAB* 75 MG PO SCH (08:31)
[2018-12-26] MEDS: Sertraline* 25 MG TAB PO SCH (08:32)
[2018-12-26] MEDS: Digoxin TAB* 0.125 MG PO SCH (08:32)
[2018-12-26] MEDS: Pantoprazole TAB * 40 MG TAB PO SCH (08:32)
[2018-12-26] MEDS: Tamsulosin CAP* 0.4 MG PO SCH (08:33)
[2018-12-26] MEDS: amLODIPine TAB* 5 MG PO SCH (08:33)
[2018-12-26] MEDS ORDERED: Nicotine PATCH 14 MG/24 HR* PATCH TRANSDERM SCH (09:00)
[2018-12-26] MEDS: OXcarbazepine TAB(*) 300 MG PO SCH (09:35)
[2018-12-26 10:34] LABS: ABS Basophils 0.1 10^3/ul (0-0.2); ABS Eosinophils 0.1 10^3/ul (0-0.6); ABS Lymphocytes 0.5 10^3/ul (1.0-4.8); ABS Monocytes 0.5 10^3/ul (0-0.8); ABS Neutrophils 5.7 10^3/ul (1.5-7.7); ABS Nucleated RBC 0 10^3/ul; Hematocrit 37 % (42-52); Hemoglobin 11.9 g/dl (14.0-18.0); Lymphocyte % 7.4 %; Mean Corpuscular HGB Conc 32 g/dl (31-36); Mean Corpuscular Hemoglobin 28 pg (27-31); Mean Corpuscular Volume 87 fL (80-94); Mean Platelet Volume 8.9 fL (7.4-10.4); Nucleated Red Blood Cells % 0; Platelet Count 115 10^3/ul (150-450); Red Blood Count 4.28 10^6/ul (4.00-5.40); Red Cell Distribution Width 26 % (10.5-15); White Blood Count 6.8 10^3/ul (3.5-10.8)
[2018-12-26 10:51] LABS: Anion Gap 6 mmol/L (2-11); BUN/Creatinine Ratio 22.2 (8-20); Blood Urea Nitrogen 26 mg/dL (6-24); CO2 Carbon Dioxide 34 mmol/L (22-32); Calcium 8.6 mg/dL (8.6-10.3); Chloride 101 mmol/L (101-111); EGFR African American 74.8 (>60); EGFR Non-African American 61.8 (>60); Glucose 233 mg/dL (70-100); Magnesium 1.3 mg/dL (1.9-2.7); Potassium 3.7 mmol/L (3.5-5.0); Sodium 141 mmol/L (135-145)
[2018-12-26 10:52] LABS: Troponin I 0.08 ng/mL (<0.04)
[2018-12-26] MEDS ORDERED: Magnesium Sulf 4 GM/100 ML IV* 4,000 MG/100 ML BAG IVPB ONE (11:03)
[2018-12-26] MEDS ORDERED: methylPREDNISolone SOD 40 MG* 1 ML VIAL IV ONE (11:11)
[2018-12-26] MEDS ORDERED: Furosemide IV* 10 MG/ML 10 ML VIAL (100 MG) IV ONE (11:12)
[2018-12-26] MEDS ORDERED: Morphine VIAL* 4 MG/ML VIAL (1 ml vial) IV ONE (11:13)
[2018-12-26] MEDS: Docusate CAP* 100 MG PO SCH (11:40)
[2018-12-26] MEDS: Senna TAB PO SCH ×2 (11:40→22:04)
[2018-12-26] MEDS ORDERED: Nicotine PATCH 21 MG/24 HR* PATCH TRANSDERM SCH (12:00)
[2018-12-26] MEDS: Nicotine PATCH 14 MG/24 HR* PATCH TRANSDERM SCH (12:45)
[2018-12-26] MEDS: LORazepam TAB(*) 0.5 MG PO PRN ×2 (13:41→18:24)
[2018-12-26] MEDS ORDERED: Morphine VIAL* 4 MG/ML VIAL (1 ml vial) ONE (15:15)
--- NOTE | 2018-12-26 15:55 | PN ---
Subjective Date of Service: 12/26/18 Interval History: Pt has had multiple episodes of resp distress asking for morphine, tripoding and needing to be placed back on BIPAP. Despite that very resistant to stay in the hospital Denies CP. c/o "filling up with fluid" when laying down Objective Active Medications: Hydrocodone Bitart/Acetaminophen (Loyal 5-325 Tab*) 1 tab PO Q6H PRN PRN Reason: PAIN Last Admin: 12/26/18 03:17 Dose: 1 tab Albuterol (Ventolin 2.5 Mg/3 Ml Neb.Jessika*) 2.5 mg INH Q2HR PRN PRN Reason: SHORTNESS OF BREATH Last Admin: 12/25/18 20:23 Dose: 2.5 mg Albuterol/Ipratropium (Duoneb (Albuterol 2.5 Mg/Ipratropium 0.5 Mg)) 1 neb INH Q4H PRN PRN Reason: SOB/WHEEZING Last Admin: 12/26/18 11:23 Dose: 1 neb Amlodipine Besylate (Norvasc Tab*) 2.5 mg PO DAILY [facility] Last Admin: 12/26/18 08:33 Dose: 2.5 mg Apixaban (Eliquis*) 5 mg PO BID [facility] Last Admin: 12/26/18 00:16 Dose: 5 mg Atorvastatin Calcium (Lipitor*) 20 mg PO DAILY [facility] Last Admin: 12/26/18 08:30 Dose: 20 mg Clopidogrel Bisulfate (Plavix Tab*) 75 mg PO DAILY [facility] Last Admin: 12/26/18 08:31 Dose: 75 mg Dextrose (D50w Syringe 50 Ml*) 12.5 gm IV PUSH .FOR FS < 60 - SS PRN PRN Reason: FS < 60 Digoxin (Lanoxin Tab*) 0.125 mg PO DAILY [facility] Last Admin: 12/26/18 08:32 Dose: 0.125 mg Docusate Sodium (Colace Cap*) 100 mg PO DAILY [facility] Last Admin: 12/26/18 11:40 Dose: Not Given Furosemide (Lasix Iv*) 80 mg IV 0800,1700 [facility] Gabapentin (Neurontin Cap(*)) 600 mg PO QAM [facility] Last Admin: 12/26/18 08:31 Dose: 600 mg Gabapentin (Neurontin Cap(*)) 1,200 mg PO BEDTIME [facility] Last Admin: 12/26/18 00:15 Dose: 1,200 mg Insulin Glargine (Lantus(*)) 40 units SUBCUT QAM [facility] Last Admin: 12/26/18 08:28 Dose: 40 unit Insulin Human Lispro (Humalog*) 0 units SUBCUT ACHS [facility]; Protocol Last Admin: 12/26/18 12:32 Dose: Not Given Lidocaine (Xylocaine 5% Oint*) 1 applic TOPICAL Q6HR PRN PRN Reason: PAIN Loperamide HCl (Imodium Cap*) 2 mg PO Q6H PRN PRN Reason: DIARRHEA Lorazepam (Ativan Tab(*)) 0.5 mg PO TID PRN PRN Reason: ANXIETY Last Admin: 12/26/18 13:41 Dose: 0.5 mg Methylprednisolone Sodium Succinate (Solu-Medrol 40 Mg) 40 mg IV Q8H [facility] Metoprolol Succinate (Toprol Xl Tab*) 100 mg PO BID [facility] Last Admin: 12/26/18 08:30 Dose: 100 mg Morphine Sulfate (Morphine Inj ((Syringe))*) 2 mg IV Q4H PRN PRN Reason: PAIN - MILD Last Admin: 12/26/18 00:39 Dose: 2 mg Nicotine (Nicotine Patch 14 Mg/24 Hr*) 1 patch TRANSDERM DAILY [facility] Last Admin: 12/26/18 12:45 Dose: 1 patch Oxcarbazepine (Trileptal Tab(*)) 300 mg PO QAM [facility] Oxcarbazepine (Trileptal Tab(*)) 600 mg PO QPM [facility] Pantoprazole Sodium (Protonix Tab*) 40 mg PO DAILY [facility] Last Admin: 12/26/18 08:32 Dose: 40 mg Pharmacy Profile Note (Nicotine Patch Removal Note*) 1 note PATCH OFF 2100 [facility] Potassium Chloride (Klor Con Er Tab*) 20 meq PO DAILY [facility] Last Admin: 12/26/18 08:31 Dose: 20 meq Senna (Senokot Tab*) 1 tab PO BID [facility] Last Admin: 12/26/18 11:40 Dose: Not Given Sertraline HCl (Zoloft*) 25 mg PO DAILY [facility] Last Admin: 12/26/18 08:32 Dose: 25 mg Tamsulosin HCl (Flomax Cap*) 0.4 mg PO DAILY [facility] Last Admin: 12/26/18 08:33 Dose: 0.4 mg Vital Signs - 8 hr 12/26/18 12/26/18 12/26/18 08:32 08:44 11:25 Temperature 96.8 F Pulse Rate 70 66 Respiratory 2 Rate O2 Sat by Pulse 96 Oximetry 12/26/18 12/26/18 12/26/18 11:55 13:07 13:41 Temperature Pulse Rate Respiratory 18 26 Rate O2 Sat by Pulse 94 Oximetry 12/26/18 15:27 Temperature Pulse Rate Respiratory 26 Rate O2 Sat by Pulse Oximetry Oxygen Devices in Use Now: OxyMask Appearance: 68 yo M in nAD. AAOx3 Eyes: No Scleral Icterus, PERRLA Ears/Nose/Mouth/Throat: NL Teeth, Lips, Gums, Mucous Membranes Moist Neck: NL Appearance and Movements; NL JVP, Trachea Midline Respiratory: Symmetrical Chest Expansion and Respiratory Effort, - - rales at b/ l bases and b/l mid lung wheeezes Cardiovascular: - - irregular Abdominal: NL Sounds; No Tenderness; No Distention, No Hepatosplenomegaly Lymphatic: No Cervical Adenopathy Extremities: No Clubbing, Cyanosis, - - no palpable pedal pulses, cap refill decreased in left foot Skin: No Nodules or Sclerosis, - - left bottom of foot ulcer at 2 cm in diam - no infection noted, necrotic tissue at bottom Neurological: Alert and Oriented x 3, NL Muscle Strength and Tone Result Diagrams: 12/26/18 10:10 12/26/18 10:10 Microbiology and Other Data: Microbiology 12/26/18 01:25 Nasal Screen MRSA (PCR) - Final Nasal Mrsa Not Detected Assess/Plan/Problems-Billing Assessment: Mr. Berrios is a 68 yo male with PMH significant for systolic HF - EF 30%, CAD, A fib, HTN, CKD stage 3, COPD (on home 02 at 2 L), JOSIAH (BIPAP-not always compliant), HLD, DM, GERD, who presented to the emergency room for resp distress - Patient Problems (1) Acute respiratory failure with hypoxia Comment: -pt cont to need BIPAP during the day, occasionally tripoding and asking for morphine. apparently was given a script for morphne by PCP but has not used it at home yet. cont IV Lasix BID -Pt is very reluctant to stay another night, but explained to him that he is too unstable to be discharged safely (2) COPD (chronic obstructive pulmonary disease) Comment: Uses O2 at 2 L at home suspect current CHF exacerbation could be driven by COPD exacerbation will start solu Medrol No evidence of resp infection so far (3) Acute systolic (congestive) heart failure Comment: It is the cause of pts resp failure EF known to be 30% cont IV Lasix (4) Elevated troponin Comment: - Denies chest pain - Suspect this is his baseline - No further work-up at this time -last cath in [facility] in 09/2018 , finance professional Dr. Walls. Pt did not want me to call his finance professional today when offered. (5) Atrial fibrillation Comment: - Rate controlled - Continue metoprolol, digoxin, and Eliquis (6) CKD (chronic kidney disease) stage 3, GFR 30-59 ml/min Comment: - At baseline (7) JOSIAH (obstructive sleep apnea) Comment: - Pt uses BIPAP at home rarely (states he does not tolerate). (8) Tobacco abuse Comment: Pt advised to quit smoking and avoid second hand smoke. He states he smokes about 5 cigarettes per day. nicotine patch ordered (9) Type 2 diabetes mellitus Comment: - Hold metformin - Continue Lantus and Lispro (10) DVT prophylaxis Comment: Eliquis Status and Disposition: inpatient
[2018-12-26] MEDS ORDERED: Furosemide IV* 10 MG/ML 10 ML VIAL (100 MG) IV SCH (17:00)
[2018-12-26] MEDS ORDERED: OXcarbazepine TAB(*) 300 MG PO SCH (18:00)
[2018-12-26] MEDS: Furosemide IV* 10 MG/ML 10 ML VIAL (100 MG) IV SCH (18:24)
[2018-12-26] MEDS ORDERED: Nicotine Patch Removal NOTE PATCH OFF SCH (21:00)
[2018-12-26] MEDS: methylPREDNISolone SOD 40 MG* 1 ML VIAL IV SCH (22:04)
[2018-12-27] MEDS ORDERED: Morphine VIAL* 4 MG/ML VIAL (1 ml vial) IV PRN (01:16)
[2018-12-27] MEDS: LORazepam TAB(*) 0.5 MG PO PRN (04:35)
[2018-12-27] MEDS: methylPREDNISolone SOD 40 MG* 1 ML VIAL IV SCH (04:35)
[2018-12-27 04:40] LABS: ABS Neutrophils 9.9 10^3/ul (1.5-7.7); Hematocrit 42 % (42-52); Hemoglobin 13.6 g/dl (14.0-18.0); Mean Corpuscular HGB Conc 33 g/dl (31-36); Mean Corpuscular Hemoglobin 28 pg (27-31); Mean Corpuscular Volume 87 fL (80-94); Mean Platelet Volume 9.3 fL (7.4-10.4); Platelet Count 139 10^3/ul (150-450); Red Blood Count 4.82 10^6/ul (4.00-5.40); Red Cell Distribution Width 25 % (10.5-15); White Blood Count 10.3 10^3/ul (3.5-10.8)
[2018-12-27 04:55] LABS: Anion Gap 7 mmol/L (2-11); BUN/Creatinine Ratio 23.5 (8-20); Blood Urea Nitrogen 32 mg/dL (6-24); CO2 Carbon Dioxide 33 mmol/L (22-32); Calcium 9.4 mg/dL (8.6-10.3); Chloride 96 mmol/L (101-111); EGFR African American 62.9 (>60); Glucose 387 mg/dL (70-100); Magnesium 2.4 mg/dL (1.9-2.7); Potassium 4.4 mmol/L (3.5-5.0); Sodium 136 mmol/L (135-145)
[2018-12-27 05:01] LABS: Troponin I 0.05 ng/mL (<0.04)
[2018-12-27 05:13] LABS: ABS Basophils 0 10^3/ul (0-0.2); ABS Eosinophils 0 10^3/ul (0-0.6); ABS Lymphocytes 0.2 10^3/ul (1.0-4.8); ABS Monocytes 0.1 10^3/ul (0-0.8); ABS Nucleated RBC 0 10^3/ul; Eosinophil % 0 %; Lymphocyte % 2.3 %; Nucleated Red Blood Cells % 0
[2018-12-27] MEDS: Senna TAB PO SCH (07:45)
[2018-12-27] MEDS: Insulin LISPRO* 1 UNITS UNIT SUBCUT SCH (09:49)
[2018-12-27] MEDS: amLODIPine TAB* 5 MG PO SCH (10:01)
[2018-12-27] MEDS: Apixaban* 5 MG TAB PO SCH (10:01)
[2018-12-27] MEDS: Gabapentin CAP(*) 300 MG PO SCH (10:02)
[2018-12-27] MEDS: Clopidogrel TAB* 75 MG PO SCH (10:02)
[2018-12-27] MEDS: Atorvastatin* 20 MG TAB PO SCH (10:02)
[2018-12-27] MEDS: Digoxin TAB* 0.125 MG PO SCH (10:02)
[2018-12-27] MEDS: Pantoprazole TAB * 40 MG TAB PO SCH (10:03)
[2018-12-27] MEDS: OXcarbazepine TAB(*) 300 MG PO SCH (10:03)
[2018-12-27] MEDS: Nicotine PATCH 14 MG/24 HR* PATCH TRANSDERM SCH (10:03)
[2018-12-27] MEDS: Metoprolol Succinate XL TAB* 100 MG PO SCH (10:03)
[2018-12-27] MEDS: Insulin GLARGINE(*) 1 UNITS UNIT SUBCUT SCH (10:03)
[2018-12-27] MEDS: Sertraline* 25 MG TAB PO SCH (10:04)
[2018-12-27] MEDS: Potassium Chlor TAB* 10 MEQ TAB.ER PO SCH (10:04)
[2018-12-27] MEDS: Tamsulosin CAP* 0.4 MG PO SCH (10:04)
[2018-12-27] MEDS: Docusate CAP* 100 MG PO SCH (10:04)
[2018-12-27] MEDS: Furosemide IV* 10 MG/ML 10 ML VIAL (100 MG) IV SCH (10:31)
[2018-12-27 11:06] VITALS: BP 95/32
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
[2018-12-27] MEDS ORDERED: Furosemide TAB* 40 MG PO SCH (17:00)
== END 2018-12-27 12:00 | disposition home or self-care (01) | DRG 291 ==
LOC: ED 15:51 → MED 20:44 → ICU 12-26 00:20
PROVIDERS: ADMIT Pediatrics; ATTEND Internal Medicine
PROC: 5A09357 Assistance with Respiratory Ventilation, Less than 24 Consecutive Hours, Continuous Positive Airway Pressure (ICD-10-PCS; principal; 2018-12-25)
DX: I13.0 Hypertensive heart and chronic kidney disease with heart failure and stage 1 through stage 4 chronic kidney disease, or unspecified chronic kidney disease (principal); J96.21 Acute and chronic respiratory failure with hypoxia; I50.23 Acute on chronic systolic (congestive) heart failure; J44.1 Chronic obstructive pulmonary disease with (acute) exacerbation; I45.2 Bifascicular block; I42.2 Other hypertrophic cardiomyopathy; I25.10 Atherosclerotic heart disease of native coronary artery without angina pectoris; I48.2 Chronic atrial fibrillation; E11.22 Type 2 diabetes mellitus with diabetic chronic kidney disease; N18.3 Chronic kidney disease, stage 3 (moderate); K21.9 Gastro-esophageal reflux disease without esophagitis; G47.33 Obstructive sleep apnea (adult) (pediatric); G89.29 Other chronic pain; M54.9 Dorsalgia, unspecified; F32.9 Major depressive disorder, single episode, unspecified; E78.5 Hyperlipidemia, unspecified; F43.10 Post-traumatic stress disorder, unspecified; K58.9 Irritable bowel syndrome, unspecified; E11.40 Type 2 diabetes mellitus with diabetic neuropathy, unspecified; R74.8 Abnormal levels of other serum enzymes; E11.51 Type 2 diabetes mellitus with diabetic peripheral angiopathy without gangrene; I25.5 Ischemic cardiomyopathy; F17.210 Nicotine dependence, cigarettes, uncomplicated; N40.0 Benign prostatic hyperplasia without lower urinary tract symptoms; F41.9 Anxiety disorder, unspecified; Z88.6 Allergy status to analgesic agent; Z91.030 Bee allergy status; Z88.8 Allergy status to other drugs, medicaments and biological substances; Z95.5 Presence of coronary angioplasty implant and graft; Z88.0 Allergy status to penicillin; Z93.2 Ileostomy status; Z91.013 Allergy to seafood; Z86.19 Personal history of other infectious and parasitic diseases; Z79.01 Long term (current) use of anticoagulants; Z79.02 Long term (current) use of antithrombotics/antiplatelets; Z79.4 Long term (current) use of insulin; I25.2 Old myocardial infarction
CPT/HCPCS: 36415; 71045; 80048; 80053; 80162; 83605; 83735; 83880; 84484; 85025; 85060; 87641; 93005; 94640; 94660; 99285; 99406; A9270-GY; J1940; J2270; J2920; J3475

== ENCOUNTER 2019-03-26 18:53 | Inpatient (IN) | payer OTHER ==
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
[2019-03-26 20:04] LABS: ABS Basophils 0.1 10^3/ul (0-0.2); ABS Eosinophils 0.2 10^3/ul (0-0.6); ABS Lymphocytes 0.4 10^3/ul (1.0-4.8); ABS Monocytes 0.4 10^3/ul (0-0.8); ABS Neutrophils 6.9 10^3/ul (1.5-7.7); Hematocrit 35 % (42-52); Hemoglobin 11.8 g/dL (14.0-18.0); Lymphocyte % 5.5 %; Mean Corpuscular HGB Conc 34 g/dL (31-36); Mean Corpuscular Hemoglobin 30 pg (27-31); Mean Corpuscular Volume 89 fL (80-94); Mean Platelet Volume 9.3 fL (7.4-10.4); Nucleated Red Blood Cells % 0.1; Platelet Count 137 10^3/uL (150-450); Red Blood Count 3.94 10^6 /uL (4.18-5.48); Red Cell Distribution Width 16 % (10-15)
[2019-03-26 20:21] LABS: ALT 11 U/L (7-52); AST 12 U/L (13-39); Albumin 3.8 g/dL (3.2-5.2); Albumin/Globulin Ratio 1.5 (1-3); Alkaline Phosphatase 93 U/L (34-104); Anion Gap 10 mmol/L (2-11); BUN/Creatinine Ratio 22.9 (8-20); Blood Urea Nitrogen 24 mg/dL (6-24); CO2 Carbon Dioxide 31 mmol/L (22-32); Calcium 9.1 mg/dL (8.6-10.3); Chloride 100 mmol/L (101-111); EGFR African American 84.7 (>60); Globulin 2.5 g/dL (2-4); Glucose 229 mg/dL (70-100); Potassium 4.1 mmol/L (3.5-5.0); Sodium 141 mmol/L (135-145); Total Protein 6.3 g/dL (6.4-8.9)
[2019-03-26 20:25] LABS: Troponin I 0.04 ng/mL (<0.04)
[2019-03-26] MEDS ORDERED: Furosemide IV* 10 MG/ML VIAL (40 MG) IV SLOW PU ONE (21:03)
[2019-03-26] MEDS ORDERED: Albuterol 2.5 MG/3 ML NEB.SOL* (0.083%) INH PRN (23:23)
[2019-03-26] MEDS ORDERED: ACETAMINOPHEN PO PRN (23:23)
[2019-03-26] MEDS ORDERED: OXYCODONE HCL PO PRN (23:23)
[2019-03-26] MEDS ORDERED: Acetaminophen TAB* 325 MG PO PRN (23:27)
[2019-03-27] MEDS ORDERED: Dextrose 50% Syringe 50 ML* 25 GM/50 ML SYRINGE IV PUSH PRN (01:01)
[2019-03-27] MEDS: Apixaban* 5 MG TAB PO SCH ×3 (01:31→21:31)
[2019-03-27] MEDS: OXcarbazepine TAB(*) 300 MG PO SCH ×2 (01:31→18:09)
[2019-03-27] MEDS: metFORMIN* 500 MG TAB PO SCH ×3 (01:31→18:10)
[2019-03-27] MEDS: Metoprolol Succinate XL TAB* 100 MG PO SCH ×3 (01:32→21:32)
[2019-03-27] MEDS: Gabapentin CAP(*) 400 MG PO SCH ×2 (01:32→21:32)
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
[2019-03-27 08:31] LABS: ABS Eosinophils 0.3 10^3/ul (0-0.6); ABS Lymphocytes 0.6 10^3/ul (1.0-4.8); ABS Monocytes 0.4 10^3/ul (0-0.8); ABS Neutrophils 5.6 10^3/ul (1.5-7.7); Eosinophil % 3.9 %; Hematocrit 36 % (42-52); Hemoglobin 12.2 g/dL (14.0-18.0); Lymphocyte % 8.8 %; Mean Corpuscular HGB Conc 34 g/dL (31-36); Mean Corpuscular Hemoglobin 30 pg (27-31); Mean Corpuscular Volume 89 fL (80-94); Mean Platelet Volume 9.5 fL (7.4-10.4); Platelet Count 144 10^3/uL (150-450); Red Blood Count 4.07 10^6 /uL (4.18-5.48); Red Cell Distribution Width 17 % (10-15); White Blood Count 6.9 10^3/uL (3.5-10.8)
[2019-03-27 08:46] LABS: BUN/Creatinine Ratio 23.8 (8-20); Calcium 9.2 mg/dL (8.6-10.3); EGFR African American 84.7 (>60); Potassium 3.8 mmol/L (3.5-5.0)
[2019-03-27] MEDS ORDERED: amLODIPine TAB* 5 MG PO SCH (09:00)
[2019-03-27] MEDS: Pantoprazole TAB * 40 MG TAB PO SCH (09:09)
[2019-03-27] MEDS: Atorvastatin* 20 MG TAB PO SCH (09:09)
[2019-03-27] MEDS: Sertraline* 25 MG TAB PO SCH (09:10)
[2019-03-27] MEDS: Clopidogrel TAB* 75 MG PO SCH (09:10)
[2019-03-27] MEDS: Gabapentin CAP(*) 300 MG PO SCH (09:11)
[2019-03-27] MEDS: Tamsulosin CAP* 0.4 MG PO SCH (09:11)
[2019-03-27] MEDS: Cholecalciferol TAB* 1000 UNITS PO SCH (09:12)
[2019-03-27] MEDS: Nicotine PATCH 14 MG/24 HR* PATCH TRANSDERM SCH (09:13)
[2019-03-27] MEDS: Furosemide IV* 10 MG/ML 10 ML VIAL (100 MG) IV SCH ×2 (09:17→18:11)
[2019-03-27] MEDS: Insulin GLARGINE(*) 1 UNITS UNIT SUBCUT SCH (09:23)
[2019-03-27] MEDS: Insulin LISPRO* 1 UNITS UNIT SUBCUT SCH ×4 (09:24→21:46)
[2019-03-27] MEDS: Digoxin TAB* 0.125 MG PO SCH (09:25)
--- NOTE | 2019-03-27 17:23 | PN ---
Subjective Date of Service: 03/27/19 Interval History: Pt is doing ok today- states his SOB has improved and he is requiring 3L O2, which is baseline. He has not ambulated yet. He is anxious for discharge and would like to go outside, but is agreeable to staying. Denies CP, cough, wheeze , fever, abd pain. Pt states that he takes rx regularly. He and also say they follow strict diet, but admit to eating fast food/burgers on occasion. Also noted, is pt's bipap has recently broke; he has been using this regularly during the day for SOB (ordered for night use). Objective Active Medications: Acetaminophen (Tylenol Tab*) 650 mg PO Q4H PRN Albuterol (Ventolin 2.5 Mg/3 Ml Neb.Jessika*) 2.5 mg INH Q2HR PRN Apixaban (Eliquis*) 5 mg PO BID [facility] Atorvastatin Calcium (Lipitor*) 20 mg PO DAILY [facility] Cholecalciferol (Vitamin D Tab*) 2,000 units PO DAILY [facility] Clopidogrel Bisulfate (Plavix Tab*) 75 mg PO DAILY [facility] Dextrose (D50w Syringe 50 Ml*) 12.5 gm IV PUSH .FOR FS < 60 - SS PRN Digoxin (Lanoxin Tab*) 0.125 mg PO DAILY [facility] Furosemide (Lasix Iv*) 60 mg IV 0800,1700 [facility] Gabapentin (Neurontin Cap(*)) 600 mg PO QAM [facility] Gabapentin (Neurontin Cap(*)) 1,200 mg PO BEDTIME [facility] Insulin Glargine (Lantus(*)) 40 units SUBCUT QAM [facility] Insulin Human Lispro (Humalog*) 0 units SUBCUT ACHS [facility]; Protocol Loperamide HCl (Imodium Cap*) 2 mg PO Q6H PRN Metformin HCl (Glucophage*) 500 mg PO QPM [facility] Metformin HCl (Glucophage*) 1,000 mg PO QAM [facility] Metoprolol Succinate (Toprol Xl Tab*) 100 mg PO BID [facility] Nicotine (Nicotine Patch 14 Mg/24 Hr*) 1 patch TRANSDERM DAILY [facility] Oxcarbazepine (Trileptal Tab(*)) 600 mg PO QPM [facility] Oxycodone/Acetaminophen (Percocet 5/325 Tab*) 1 tab PO Q6H PRN Pantoprazole Sodium (Protonix Tab*) 40 mg PO DAILY [facility] Pharmacy Profile Note (Nicotine Patch Removal Note*) 1 note PATCH OFF 2100 [facility] Sertraline HCl (Zoloft*) 12.5 mg PO DAILY [facility] Tamsulosin HCl (Flomax Cap*) 0.4 mg PO DAILY [facility] Vital Signs: Temp Pulse Resp BP Pulse Ox 97.5 F 75 18 109/47 95 03/27/19 15:55 03/27/19 15:55 03/27/19 15:55 03/27/19 15:55 03/27/19 15:55 Oxygen Devices in Use Now: Nasal Cannula Appearance: Pt sitting up in bed with HOBE. He is comfortable, in no acute distress. Eyes: No Scleral Icterus, PERRLA Ears/Nose/Mouth/Throat: NL Teeth, Lips, Gums, Clear Oropharnyx, Mucous Membranes Moist Neck: NL Appearance and Movements; NL JVP, Trachea Midline Respiratory: Symmetrical Chest Expansion and Respiratory Effort, Clear to Auscultation Cardiovascular: NL Sounds; No Murmurs; No JVD Abdominal: NL Sounds; No Tenderness; No Distention, No Hepatosplenomegaly Extremities: No Edema, No Clubbing, Cyanosis, - - L leg with CDI dressing Neurological: Alert and Oriented x 3 Result Diagrams: 03/27/19 08:18 03/27/19 08:18 Assess/Plan/Problems-Billing Assessment: 68 yom PMHx systolic HF, CAD, AF, CKD III, HTN, COPD, hypoxic resp failure requiring 3L O2, JOSIAH with bipap use, DMII, PVD, GERD, low back pain, IBS, chronic L foot wound presents with SOB. - Patient Problems (1) Acute on chronic systolic heart failure Comment: -SOB improved, but continues; no JVD, breath sounds CTAB, no cough, fever; CXR shows pna vs CHF- low suspicion for pna. -Lasix 80 PO BID at home; increase to 60 IV BID and monitor for need to transition back to PO -Weight is 226; diuresed to 215 in past -Daily weights, I/O (2) PVD (peripheral vascular disease) Comment: -Chronic L foot ulcer; managed by wound care in [place] -Skin prep around wound, then pluracel plus micro scaffold collagen with 4x4 and wrap every Saturday (3) Hypertension Comment: -Controlled -Continue home medications amlodipine -Lasix IV (4) Atrial fibrillation Comment: -Rate controlled -Continue metoprolol, digoxin, and Eliquis (5) Type 2 diabetes mellitus Comment: -Continue metformin -Glargine 40 in a.m. -Lispro ss (6) CAD (coronary artery disease) Comment: -Baseline elevated troponin without CP, ekg changes -Continue atorvastatin, metoprolol (7) Chronic respiratory failure with hypoxia Comment: -Continue 3L O2, as at home (8) Irritable bowel syndrome Comment: -Continue immodium (9) CKD (chronic kidney disease) stage 3, GFR 30-59 ml/min Comment: -At baseline -Continue to monitor (10) Sleep apnea Comment: -Bipap at night (11) DVT prophylaxis Comment: -Eliquis (12) Full code status Status and Disposition: Inpatient. Discharge when stable.
--- NOTE | 2019-03-27 17:58 | ECHO ---
*[facility]* [place] [address] Fax #: [phone] Transthoracic Echocardiogram Patient: Yash, Height: 71 in / Eb 180.3 cm : 1950 Weight: 219.5 lb / Study Date: 03/27/2019 99.8 kg Age: 68 BP: 118 / 42 Gender: M BMI/BSA: 30.7 kg/m^2 HR: 70 bpm / 2.2 m^2 *Math Instructor: * Ana Lilia Farris RDCS RN *Referring Physician: * Nicole Barragan *Reading Physician: * Warren Ingram MD Indications: Congestive Heart Failure. History: Functional status: Obstructive sleep apnea. Risk factors: Congestive Heart Failure. CAD with stenting. Atrial fibrillation. COPD. PVD. Former tobacco use. Hypertension. Diabetes mellitus. Conclusions Summary: 1. Left ventricle: The cavity size is mildly dilated. Wall thickness is moderately increased. Systolic function is mildly reduced. The estimated ejection fraction is 40-45%. 2. Regional wall motion abnormality: Akinesis of the apical inferior myocardium; moderate hypokinesis of the basal-mid inferior myocardium. 3. Right ventricle: The cavity size is normal. Systolic function is normal. Systolic pressure is not estimated. 4. Left atrium: The atrium is severely dilated. 5. Aortic valve: The findings are consistent with very mild stenosis. There is mild to moderate regurgitation. Recommendations: Compared to prior study from 02/2017, findings are similar. Study data: Transthoracic echocardiogram. Procedure: Transthoracic echocardiography was performed. Image quality was fair. The study was technically limited due to body habitus, COPD, and Smoking history. Complete 2D, spectral Doppler, and color flow Doppler. Patient status: Inpatient. Patient room number: 445-02. Rhythm: Atrial fibrillation. Findings Left ventricle: The cavity size is mildly dilated. Wall thickness is moderately increased. Systolic function is mildly reduced. The estimated ejection fraction is 40-45%. Regional wall motion abnormalities: Akinesis of the apical inferior myocardium; moderate hypokinesis of the basal-mid inferior myocardium. Left ventricular diastolic function parameters are indeterminate. Right ventricle: The cavity size is normal. Systolic function is normal. Systolic pressure is not estimated. Left atrium: The atrium is severely dilated. Right atrium: The atrium is moderately dilated. Mitral valve: The leaflets are mildly thickened. There is no evidence of stenosis. There is mild regurgitation. Aortic valve: Not well visualized. The leaflets are mildly thickened and mildly calcified. The findings are consistent with very mild stenosis. There is mild to moderate regurgitation. Tricuspid valve: The leaflets are mildly thickened. There is trace regurgitation. Pulmonic valve: There is no evidence of stenosis. Aorta: Aortic root: The aortic root is mildly dilated. Ascending aorta: The ascending aorta is not dilated. Aortic arch: The aortic arch is not visualized. Pericardium: There is no significant pericardial effusion. Pulmonary arteries: The main pulmonary artery is normal-sized. Systemic veins: Inferior vena cava: Not well visualized. Measurements Left ventricle Value Ref Right atrium Value Ref BRENDON, LAX (H) 6.1 cm 4.2 - ML dim, ES, A4C (H) 5.1 cm 2.6 - 4.4 5.8 SI dim, ES, A4C (H) 6.4 cm 3.4 - 5.3 ESD, LAX (H) 5.0 cm 2.5 - 4.0 Aortic valve Value Ref FS, LAX (L) 19 % 25 - 43 Delia diam, ED 2.4 cm --------- PW, ED, LAX (H) 1.3 cm 0.6 - Peak v, S 1.6 m/sec --------- 1.0 VTI, S 35.8 cm --------- IVS/PW, ED 1.22 -------- Mean grad, S 6.0 mm Hg --------- E', lat delia, TDI (L) 6.7 cm/sec >=10.0 Peak grad, S 10.2 mm Hg --- ------ E/e', lat delia, TDI 20 -------- LVOT/AV, VTI ratio 0.58 ------ --- E', med delia, TDI (L) 5.9 cm/sec >=7.0 CHAVA, VTI 1.80 cm^2 --- ------ E/e', med delia, TDI 23 -------- CHAVA, Vmax 2.10 cm^2 ------ --- E', avg, TDI 6.3 cm/sec -------- AR peak v 3.3 m/sec ------ --- E/e', avg, TDI (H) 22 <=14 AR PHT 460 ms --- ------ AR peak grad 44 mm Hg --------- LVOT Value Ref Diam, S 2.00 cm -------- Mitral valve Value Ref Area 3.1 cm^2 -------- Peak E 1.37 m/sec --------- Peak salvador, S 1.05 m/sec -------- Decel time 164 ms --------- VTI, S 20.8 cm -------- PHT 71 ms --------- Mean grad, S 2 mm Hg -------- Mean grad, D 3.0 mm Hg --------- SV 65 ml -------- Peak grad, D 9.0 mm Hg --------- MVA, PHT 3.0 cm^2 --------- Ventricular septum Value Ref IVS, ED (H) 1.6 cm 0.6 - Pulmonic valve Value Ref 1.0 Peak v, S 0.75 m/sec --------- Peak grad, S 2.0 mm Hg --------- Right ventricle Value Ref AW thickness, ED (H) 0.8 cm 0.1 - Aortic root Value Ref 0.5 Root diam 4.0 cm <4.3 BRENDON minor ax, A4C (H) 3.9 cm 1.9 - mid 3.5 Ascending aorta Value Ref AAo AP diam, S 3.5 cm --------- Left atrium Value Ref ML dim, A4C 5.5 cm -------- SI dim, A4C 6.5 cm -------- Vol/bsa, ES, 1-p (H) 59 ml/m^2 12 - 37 A4C Vol/bsa, ES, A/L (H) 75 ml/m^2 16 - 34 Legend: (L) and (H) jaret values outside specified reference range. Prepared and electronically signed by Warren Ingram MD 03/27/2019 17:58
[2019-03-27] MEDS: Nicotine Patch Removal NOTE PATCH OFF SCH (21:34)
[2019-03-28 05:45] LABS: BUN/Creatinine Ratio 22.5 (8-20); Calcium 8.9 mg/dL (8.6-10.3); EGFR African American 72.6 (>60); Potassium 3.6 mmol/L (3.5-5.0)
[2019-03-28] MEDS: Atorvastatin* 20 MG TAB PO SCH (08:22)
[2019-03-28] MEDS: Tamsulosin CAP* 0.4 MG PO SCH (08:22)
[2019-03-28] MEDS: Digoxin TAB* 0.125 MG PO SCH (08:22)
[2019-03-28] MEDS: Clopidogrel TAB* 75 MG PO SCH (08:22)
[2019-03-28] MEDS: Apixaban* 5 MG TAB PO SCH ×2 (08:23→21:19)
[2019-03-28] MEDS: Pantoprazole TAB * 40 MG TAB PO SCH (08:23)
[2019-03-28] MEDS: Sertraline* 25 MG TAB PO SCH (08:23)
[2019-03-28] MEDS: Gabapentin CAP(*) 300 MG PO SCH (08:23)
[2019-03-28] MEDS: metFORMIN* 500 MG TAB PO SCH ×2 (08:23→17:10)
[2019-03-28] MEDS: Cholecalciferol TAB* 1000 UNITS PO SCH (08:23)
[2019-03-28] MEDS: Furosemide IV* 10 MG/ML 10 ML VIAL (100 MG) IV SCH (08:23)
[2019-03-28] MEDS: Metoprolol Succinate XL TAB* 100 MG PO SCH ×2 (08:23→21:19)
[2019-03-28] MEDS: Insulin GLARGINE(*) 1 UNITS UNIT SUBCUT SCH (08:24)
[2019-03-28] MEDS: Insulin LISPRO* 1 UNITS UNIT SUBCUT SCH ×2 (08:24→08:32)
[2019-03-28] MEDS: Nicotine PATCH 14 MG/24 HR* PATCH TRANSDERM SCH (08:30)
--- NOTE | 2019-03-28 09:55 | PN ---
Subjective Date of Service: 03/28/19 Interval History: Pt feeling well today. Again, he is anxious to leave and threatening to sign out AMA. He feels that his SOB is improved and he is back to baseline. He is on 3L O2, which is his baseline, and is using bipap at night, as at home. He ambulates in his room without difficulty. At home, he only ambulates short distances in his home. He denies LE edema, which he states he never gets with CHF exacerbation. He denies CP, abd pain, n/v. he has diarrhea, which is his baseline. Objective Active Medications: Acetaminophen (Tylenol Tab*) 650 mg PO Q4H PRN Albuterol (Ventolin 2.5 Mg/3 Ml Neb.Jessika*) 2.5 mg INH Q2HR PRN Apixaban (Eliquis*) 5 mg PO BID [facility] Atorvastatin Calcium (Lipitor*) 20 mg PO DAILY [facility] Cholecalciferol (Vitamin D Tab*) 2,000 units PO DAILY [facility] Clopidogrel Bisulfate (Plavix Tab*) 75 mg PO DAILY [facility] Dextrose (D50w Syringe 50 Ml*) 12.5 gm IV PUSH .FOR FS < 60 - SS PRN Digoxin (Lanoxin Tab*) 0.125 mg PO DAILY [facility] Furosemide (Lasix Iv*) 60 mg IV 0800 [facility] Gabapentin (Neurontin Cap(*)) 600 mg PO QAM [facility] Gabapentin (Neurontin Cap(*)) 1,200 mg PO BEDTIME [facility] Insulin Glargine (Lantus(*)) 40 units SUBCUT QAM [facility] Insulin Human Lispro (Humalog*) 0 units SUBCUT ACHS [facility]; Protocol Loperamide HCl (Imodium Cap*) 2 mg PO Q6H PRN Metformin HCl (Glucophage*) 500 mg PO QPM [facility] Metformin HCl (Glucophage*) 1,000 mg PO QAM [facility] Metoprolol Succinate (Toprol Xl Tab*) 100 mg PO BID [facility] Nicotine (Nicotine Patch 14 Mg/24 Hr*) 1 patch TRANSDERM DAILY [facility] Oxcarbazepine (Trileptal Tab(*)) 600 mg PO QPM [facility] Oxycodone/Acetaminophen (Percocet 5/325 Tab*) 1 tab PO Q6H PRN Pantoprazole Sodium (Protonix Tab*) 40 mg PO DAILY [facility] Pharmacy Profile Note (Nicotine Patch Removal Note*) 1 note PATCH OFF 2100 [facility] Sertraline HCl (Zoloft*) 12.5 mg PO DAILY [facility] Tamsulosin HCl (Flomax Cap*) 0.4 mg PO DAILY [facility] Vital Signs: Temp Pulse Resp BP Pulse Ox 97.4 F 74 18 124/54 94 03/28/19 08:02 03/28/19 08:22 03/28/19 08:23 03/28/19 08:02 03/28/19 08:02 Oxygen Devices in Use Now: Nasal Cannula Appearance: Pt is sitting up in bed. He is aggitated and eager to be outside, out of hospital. He answers questions appropriately and is cooperative. Eyes: No Scleral Icterus, PERRLA Ears/Nose/Mouth/Throat: NL Teeth, Lips, Gums, Mucous Membranes Moist Neck: NL Appearance and Movements; NL JVP, Trachea Midline Respiratory: Symmetrical Chest Expansion and Respiratory Effort - Faint crackles at R lung base Cardiovascular: NL Sounds; No Murmurs; No JVD, RRR, No Edema Abdominal: NL Sounds; No Tenderness; No Distention, No Hepatosplenomegaly Extremities: No Edema, No Clubbing, Cyanosis Neurological: Alert and Oriented x 3 Result Diagrams: 03/27/19 08:18 03/28/19 05:03 Microbiology and Other Data: Microbiology 03/26/19 19:38 Aerobic Blood Culture - Preliminary Blood Venous No Growth Day 1 Anaerobic Blood Culture - Preliminary No Growth Day 1 03/26/19 19:48 Aerobic Blood Culture - Preliminary Blood Venous No Growth Day 1 Anaerobic Blood Culture - Preliminary No Growth Day 1 Assess/Plan/Problems-Billing Assessment: 68 yom PMHx systolic HF, CAD, AF, CKD III, HTN, COPD, hypoxic resp failure requiring 3L O2, JOSIAH with bipap use, DMII, PVD, GERD, low back pain, IBS, chronic L foot wound presents with SOB. - Patient Problems (1) Acute on chronic systolic heart failure Comment: -SOB improved, but continues; no JVD, crackles at R lung base, no cough, fever; CXR shows pna vs CHF- low suspicion for pna. -Psocv590 in a.m., 80 in p.m. at home -IV lasix at 60 IV a.m., with decrease to 40 IV p.m. due to increase in Cr with , but with continued need for diuresis due to fluid overload -Weight from 226 to 222; diuresed to 215 in past -Daily weights, I/O (2) PVD (peripheral vascular disease) Comment: -Chronic L foot ulcer; managed by wound care in [place], [place] -Skin prep around wound, then pluracel plus micro scaffold collagen with 4x4 and wrap every Saturday -Pt has appointment Saturday morning (3) CKD (chronic kidney disease) stage 3, GFR 30-59 ml/min Comment: -Cr increase to 1.20 -Continue to monitor (4) Hypertension Comment: -Controlled -Continue home medications amlodipine -Lasix IV (5) Type 2 diabetes mellitus Comment: -Continue metformin -Glargine 40 in a.m. -Discontinue Lispro ss- pt states he is allergic to short-acting insulin and refuses to take it (6) Atrial fibrillation Comment: -Rate controlled -Continue metoprolol, digoxin, and Eliquis (7) CAD (coronary artery disease) Comment: -Baseline elevated troponin without CP, ekg changes -Continue atorvastatin, metoprolol (8) Chronic respiratory failure with hypoxia Comment: -Continue 3L O2, as at home (9) Irritable bowel syndrome Comment: -Continue immodium (10) Sleep apnea Comment: -Bipap at night (11) DVT prophylaxis Comment: -Eliquis (12) Full code status Status and Disposition: Inpatient. Discharge when stable.
[2019-03-28] MEDS: oxyCODONE/Acetamin 5/325 MG* TAB PO PRN (12:23)
[2019-03-28] MEDS: Furosemide IV* 10 MG/ML VIAL (40 MG) IV SCH (13:20)
[2019-03-28] MEDS: OXcarbazepine TAB(*) 300 MG PO SCH (17:10)
[2019-03-28] MEDS: Loperamide CAP* 2 MG PO PRN (18:20)
[2019-03-28] MEDS: Gabapentin CAP(*) 400 MG PO SCH (21:20)
[2019-03-28] MEDS: Nicotine Patch Removal NOTE PATCH OFF SCH (21:23)
[2019-03-29 05:46] LABS: BUN/Creatinine Ratio 24.4 (8-20); Calcium 9.1 mg/dL (8.6-10.3); EGFR African American 70.6 (>60); EGFR Non-African American 58.3 (>60); Potassium 4.1 mmol/L (3.5-5.0)
[2019-03-29] MEDS: Nicotine PATCH 14 MG/24 HR* PATCH TRANSDERM SCH (07:43)
[2019-03-29] MEDS: Atorvastatin* 20 MG TAB PO SCH (07:44)
[2019-03-29] MEDS: metFORMIN* 500 MG TAB PO SCH ×2 (07:44→17:06)
[2019-03-29] MEDS: Digoxin TAB* 0.125 MG PO SCH (07:44)
[2019-03-29] MEDS: Metoprolol Succinate XL TAB* 100 MG PO SCH ×2 (07:44→20:30)
[2019-03-29] MEDS: Pantoprazole TAB * 40 MG TAB PO SCH (07:44)
[2019-03-29] MEDS: Tamsulosin CAP* 0.4 MG PO SCH (07:44)
[2019-03-29] MEDS: Apixaban* 5 MG TAB PO SCH ×2 (07:44→20:29)
[2019-03-29] MEDS: Cholecalciferol TAB* 1000 UNITS PO SCH (07:44)
[2019-03-29] MEDS: Sertraline* 25 MG TAB PO SCH (07:45)
[2019-03-29] MEDS: Clopidogrel TAB* 75 MG PO SCH (07:45)
[2019-03-29] MEDS: Insulin GLARGINE(*) 1 UNITS UNIT SUBCUT SCH (07:45)
[2019-03-29] MEDS: Gabapentin CAP(*) 300 MG PO SCH (07:45)
[2019-03-29] MEDS ORDERED: Furosemide IV* 10 MG/ML 10 ML VIAL (100 MG) IV SCH (08:00)
[2019-03-29] MEDS: Furosemide IV* 10 MG/ML VIAL (40 MG) IV SCH (13:28)
[2019-03-29] MEDS: oxyCODONE/Acetamin 5/325 MG* TAB PO PRN (14:48)
--- NOTE | 2019-03-29 16:50 | PN ---
Subjective Date of Service: 03/29/19 Interval History: No events overnight. Denies chest pain or shortness of breath. Denies abd pain n/v/d. Denies fever or chills. Family History: Unchanged from Admission Social History: Unchanged from Admission Past Medical History: Unchanged from Admission Objective Active Medications: Acetaminophen (Tylenol Tab*) 650 mg PO Q4H PRN PRN Reason: FEVER/PAIN Albuterol (Ventolin 2.5 Mg/3 Ml Neb.Jessika*) 2.5 mg INH Q2HR PRN PRN Reason: SHORTNESS OF BREATH Apixaban (Eliquis*) 5 mg PO BID [facility] Last Admin: 03/29/19 07:44 Dose: 5 mg Atorvastatin Calcium (Lipitor*) 20 mg PO DAILY [facility] Last Admin: 03/29/19 07:44 Dose: 20 mg Cholecalciferol (Vitamin D Tab*) 2,000 units PO DAILY [facility] Last Admin: 03/29/19 07:44 Dose: 2,000 units Clopidogrel Bisulfate (Plavix Tab*) 75 mg PO DAILY [facility] Last Admin: 03/29/19 07:45 Dose: 75 mg Dextrose (D50w Syringe 50 Ml*) 12.5 gm IV PUSH .FOR FS < 60 - SS PRN PRN Reason: FS < 60 Digoxin (Lanoxin Tab*) 0.125 mg PO DAILY [facility] Last Admin: 03/29/19 07:44 Dose: 0.125 mg Furosemide (Lasix Tab*) 80 mg PO BEDTIME [facility] Furosemide (Lasix Tab*) 100 mg PO DAILY [facility] Gabapentin (Neurontin Cap(*)) 600 mg PO QAM [facility] Last Admin: 03/29/19 07:45 Dose: 600 mg Gabapentin (Neurontin Cap(*)) 1,200 mg PO BEDTIME [facility] Last Admin: 03/28/19 21:20 Dose: 1,200 mg Insulin Glargine (Lantus(*)) 40 units SUBCUT QAM [facility] Last Admin: 03/29/19 07:45 Dose: 40 units Loperamide HCl (Imodium Cap*) 2 mg PO Q6H PRN PRN Reason: DIARRHEA Last Admin: 03/28/19 18:20 Dose: 2 mg Metformin HCl (Glucophage*) 500 mg PO QPM [facility] Last Admin: 03/28/19 17:10 Dose: 500 mg Metformin HCl (Glucophage*) 1,000 mg PO QAM [facility] Last Admin: 03/29/19 07:44 Dose: 1,000 mg Metoprolol Succinate (Toprol Xl Tab*) 100 mg PO BID [facility] Last Admin: 03/29/19 07:44 Dose: 100 mg Nicotine (Nicotine Patch 14 Mg/24 Hr*) 1 patch TRANSDERM DAILY [facility] Last Admin: 03/29/19 07:43 Dose: 1 patch Oxcarbazepine (Trileptal Tab(*)) 600 mg PO QPM [facility] Last Admin: 03/28/19 17:10 Dose: 600 mg Oxycodone/Acetaminophen (Percocet 5/325 Tab*) 1 tab PO Q6H PRN PRN Reason: PAIN Last Admin: 03/29/19 14:48 Dose: 1 tab Pantoprazole Sodium (Protonix Tab*) 40 mg PO DAILY [facility] Last Admin: 03/29/19 07:44 Dose: 40 mg Pharmacy Profile Note (Nicotine Patch Removal Note*) 1 note PATCH OFF 2100 [facility] Last Admin: 03/28/19 21:23 Dose: Not Given Sertraline HCl (Zoloft*) 12.5 mg PO DAILY [facility] Last Admin: 03/29/19 07:45 Dose: 12.5 mg Tamsulosin HCl (Flomax Cap*) 0.4 mg PO DAILY [facility] Last Admin: 03/29/19 07:44 Dose: 0.4 mg Vital Signs - 8 hr 03/29/19 03/29/19 03/29/19 12:07 14:48 15:23 Temperature 97.7 F 97.5 F Pulse Rate 64 75 Respiratory 18 18 20 Rate Blood Pressure 100/42 128/55 (mmHg) O2 Sat by Pulse 97 99 Oximetry 03/29/19 16:22 Temperature Pulse Rate Respiratory 20 Rate Blood Pressure (mmHg) O2 Sat by Pulse Oximetry Oxygen Devices in Use Now: Nasal Cannula Appearance: appears comfortable sitting in w/c. no acute distress. Eyes: No Scleral Icterus Ears/Nose/Mouth/Throat: Clear Oropharnyx, Mucous Membranes Moist Neck: NL Appearance and Movements; NL JVP, Trachea Midline Respiratory: Symmetrical Chest Expansion and Respiratory Effort, - - in the bases bilat Cardiovascular: NL Sounds; No Murmurs; No JVD, No Edema Abdominal: NL Sounds; No Tenderness; No Distention Extremities: No Clubbing, Cyanosis, - - dressing intact to left foot Skin: No Rash or Ulcers Neurological: Alert and Oriented x 3 Nutrition: Taking PO's Result Diagrams: 03/27/19 08:18 03/30/19 05:31 Microbiology and Other Data: Microbiology 03/26/19 19:38 Aerobic Blood Culture - Preliminary Blood Venous No Growth Day 1 Anaerobic Blood Culture - Preliminary No Growth Day 1 03/26/19 19:48 Aerobic Blood Culture - Preliminary Blood Venous No Growth Day 1 Anaerobic Blood Culture - Preliminary No Growth Day 1 Assess/Plan/Problems-Billing Assessment: 68 yom PMHx systolic HF, CAD, AF, CKD III, HTN, COPD, hypoxic resp failure requiring 3L O2, JOSIAH with bipap use, DMII, PVD, GERD, low back pain, IBS, chronic L foot wound presents with SOB. - Patient Problems (1) Acute on chronic systolic heart failure Current Visit: Yes Status: Acute Code(s): I50.23 - ACUTE ON CHRONIC SYSTOLIC (CONGESTIVE) HEART FAILURE SNOMED Code(s): 639062440 Comment: -SOB improved, no JVD -Lasix 100 in a.m., 80 in p.m. resume home dosing -IV lasix at 60 IV a.m., with decrease to 40 IV p.m. - will stop IV lasix after this afternoon's dose and restart HOME lasix. -Weight from 226 to 220 -Daily weights, I/O (2) Atrial fibrillation Current Visit: No Status: Chronic Priority: Medium Code(s): I48.91 - UNSPECIFIED ATRIAL FIBRILLATION SNOMED Code(s): 34535077 Comment: -Rate controlled -Continue metoprolol, digoxin, and Eliquis (3) CAD (coronary artery disease) Current Visit: No Status: Chronic Priority: Medium Code(s): I25.10 - ATHSCL HEART DISEASE OF [place] CORONARY ARTERY W/O ANG PCTRS SNOMED Code(s): 90857456 Comment: -Baseline elevated troponin without CP, ekg changes -Continue atorvastatin, metoprolol (4) CKD (chronic kidney disease) stage 3, GFR 30-59 ml/min Current Visit: No Status: Chronic Priority: Medium Code(s): N18.3 - CHRONIC KIDNEY DISEASE, STAGE 3 (MODERATE) SNOMED Code(s): 434439983 Comment: -Cr increase to 1.23 -Continue to monitor (5) Hypertension Current Visit: Yes Status: Acute Code(s): I10 - ESSENTIAL (PRIMARY) HYPERTENSION SNOMED Code(s): 39463358 Comment: -stable (6) PVD (peripheral vascular disease) Current Visit: Yes Status: Acute Code(s): I73.9 - PERIPHERAL VASCULAR DISEASE, UNSPECIFIED SNOMED Code(s): 142969873 Comment: -Chronic L foot ulcer; managed by wound care in [place] -Skin prep around wound, then pluracel plus micro scaffold collagen with 4x4 and wrap every Saturday -Pt has appointment Saturday - refused dressing change or evaluation of the left foot- denies any acute change in pain- no calf pain or lower leg tenderness, no redness noted to ankle or foot (7) Type 2 diabetes mellitus Current Visit: No Status: Chronic Priority: Medium Comment: -Continue metformin -Glargine 40 in a.m. (8) DVT prophylaxis Current Visit: No Status: Acute Priority: Medium Onset Date: 11/05/14 Code(s): LAU2360 - SNOMED Code(s): 035075979 Comment: -[place]iley (9) Full code status Current Visit: No Status: Acute Priority: Medium Onset Date: 11/05/14 Code(s): Z78.9 - OTHER SPECIFIED HEALTH STATUS SNOMED Code(s): 246736731 Status and Disposition: Inpatient. Discharge to home tomorrow when BIPAP is available at home
[2019-03-29] MEDS: OXcarbazepine TAB(*) 300 MG PO SCH (17:06)
[2019-03-29] MEDS: Gabapentin CAP(*) 400 MG PO SCH (20:28)
[2019-03-29] MEDS: Nicotine Patch Removal NOTE PATCH OFF SCH (20:42)
[2019-03-29] MEDS ORDERED: Furosemide TAB* 40 MG PO SCH (21:00)
[2019-03-29] MEDS: HYDROcodone/ACETAMIN 5-325 MG* 1 TAB PO PRN (22:58)
[2019-03-30 06:19] LABS: BUN/Creatinine Ratio 27.9 (8-20); Calcium 8.9 mg/dL (8.6-10.3); EGFR African American 66.8 (>60); EGFR Non-African American 55.2 (>60); Potassium 3.6 mmol/L (3.5-5.0)
[2019-03-30 07:48] VITALS: BP 127/50
[2019-03-30] MEDS: metFORMIN* 500 MG TAB PO SCH (08:16)
[2019-03-30] MEDS: Metoprolol Succinate XL TAB* 100 MG PO SCH (08:16)
[2019-03-30] MEDS: Cholecalciferol TAB* 1000 UNITS PO SCH (08:16)
[2019-03-30] MEDS: Pantoprazole TAB * 40 MG TAB PO SCH (08:16)
[2019-03-30] MEDS: Apixaban* 5 MG TAB PO SCH (08:16)
[2019-03-30] MEDS: Atorvastatin* 20 MG TAB PO SCH (08:16)
[2019-03-30] MEDS: Digoxin TAB* 0.125 MG PO SCH (08:17)
[2019-03-30] MEDS: Sertraline* 25 MG TAB PO SCH (08:17)
[2019-03-30] MEDS: Clopidogrel TAB* 75 MG PO SCH (08:17)
[2019-03-30] MEDS: Tamsulosin CAP* 0.4 MG PO SCH (08:17)
[2019-03-30] MEDS: Gabapentin CAP(*) 300 MG PO SCH (08:17)
[2019-03-30] MEDS: Nicotine PATCH 14 MG/24 HR* PATCH TRANSDERM SCH (08:22)
[2019-03-30] MEDS: Insulin GLARGINE(*) 1 UNITS UNIT SUBCUT SCH (08:23)
[2019-03-30] MEDS: HYDROcodone/ACETAMIN 5-325 MG* 1 TAB PO PRN (08:26)
[2019-03-30] MEDS: Loperamide CAP* 2 MG PO PRN (08:27)
[2019-03-30] MEDS ORDERED: Furosemide TAB* 40 MG PO SCH (09:00)
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
--- NOTE | 2019-03-30 21:26 | DS ---
CC: Dr. Walls, [facility], phone #[phone]; [place], [place] * DISCHARGE SUMMARY: DATE OF ADMISSION: 03/27/19 DATE OF DISCHARGE: 03/30/19 PROVIDER: Lena Ordonez NP. PRIMARY CARE PROVIDER: [facility]. ATTENDING PHYSICIAN WHILE IN THE HOSPITAL: Dr. Gage Leon * (dictated by Lena Ordonez NP). PRIMARY DIAGNOSES: 1. Congestive heart failure. 2. Acute on chronic hypoxic respiratory failure. SECONDARY DIAGNOSES: 1. Atrial fibrillation. 2. Chronic kidney disease, stage 3. 3. Hypertension. 4. Chronic obstructive pulmonary disease. 5. Diabetes. 6. Acid reflux. STUDIES COMPLETED WHILE IN THE HOSPITAL: He had a chest x-ray on 03/26/19, radiologist's impression: Findings most consistent with pneumonia or congestive heart failure. He had a transthoracic echocardiogram on 03/26/19, conclusion: Left ventricle: 1. The cavity size is mildly dilated, wall thickness is mildly increased, systolic function is mildly reduced, estimated ejection fraction of 40% to 45%. 2. Regional wall motion abnormality. Akinesis of the apical, inferior myocardium, mild hypokinesis of the basal mid inferior myocardium. Right ventricle: The cavity size is normal, systolic function is normal, systolic pressure is not estimated, left atrium has severely dilated aortic valve. The findings are consistent with very mild stenosis. There is mild-to- moderate regurgitation. Study compared to February 2017 with similar findings. DISCHARGE MEDICATIONS: No new home medications. Continued home medications: 1. Digoxin 0.125 mg p.o. daily. 2. Clopidogrel 75 mg p.o. daily. 3. Vitamin D 2000 units p.o. daily. 4. Lantus 40 units subcu q.a.m. 5. Neurontin 600 mg p.o. q.a.m. 6. Neurontin 1200 mg p.o. at bedtime. 7. Zoloft 12.5 mg p.o. daily. 8. Albuterol nebulizer q.2 hours as needed for shortness of breath. 9. Oxycodone 1 tablet p.o. q.6 hours as needed for pain. 10. Nicotine patch 14 mg daily. 11. Imodium 2 mg p.o. q.6 hours as needed. 12. Amlodipine 2.5 mg p.o. daily. 13. Flomax 0.4 mg p.o. daily. 14. Pantoprazole 40 mg p.o. daily. 15. Lasix 80 mg at bedtime, 100 mg in the a.m. 16. Atorvastatin 20 mg p.o. daily. 17. Eliquis 5 mg p.o. b.i.d. HISTORY OF PRESENT ILLNESS AND HOSPITAL COURSE: Mr. Berrios is a 68-year-old male with a past medical history significant for COPD; history of chronic systolic congestive heart failure; coronary artery disease; atrial fibrillation ; diabetes; chronic kidney disease; chronic hypoxic respiratory failure, on continuous 4 L of oxygen; peripheral vascular disease, who presented to the emergency room initially with a complaint of shortness of breath. Prior to arrival, he had increasing shortness of breath for approximately 1 week and feeling congested most of the time at home over the past few months. Prior to admission, the patient was reporting that he was using his BiPAP more frequently at home, which he typically only uses at night and was using approximately 15 hours a day. He had no reported fevers or chest pain, nausea, vomiting or diarrhea during this hospitalization. While in the hospital, the patient had received Lasix IV for diuresis. He lost approximately 6 pounds during this admission and his breathing improved significantly after diuresis. The patient was also noted to have had BiPAP failure at home. The patient's BiPAP machine was broke. As well this has been replaced and a new one is available at the day of discharge for pickup at the [facility]. The patient is feeling better and wishes to be discharged at this time. At this time, Mr. Berrios is stable for discharge home. Vital signs are as follows: Temperature 97.0, heart rate 77, respirations are 20, O2 saturation is 98% on 3 L, blood pressure was 127/50. DISCHARGE PLAN: Mr. Berrios will be discharged home. Activity as tolerated. He should continue on a heart healthy diet. 1. Congestive heart failure. The patient should do daily weights. He should resume his Lasix 100 mg in the morning, 80 mg in the evening. He should follow up with his primary director [employer], Dr. Walls in [place] in 1 to 2 weeks for further recommendations on management of his congestive heart failure. The patient was instructed to call his primary care provider if he experiences a 2 to 3 pound weight gain in a 24 hour period or progressively worsening shortness of breath. 2. Chronic foot ulcer. The patient should continue management with wound care in [place] as previously prescribed. He should follow up with [place] [facility] today, day of discharge, with his scheduled appointment for dressing change. 3. Diabetes. He should continue Lantus 40 units subcu q.a.m. and metformin as previously prescribed. 4. Coronary artery disease. He should continue on metoprolol, clopidogrel, digoxin, and Eliquis as previously prescribed. 5. Hyperlipidemia. He should continue on his atorvastatin as previously prescribed. There were no medication changes during this hospitalization. He should follow up with his director [employer] Dr. Walls in 1 to 2 weeks. He should follow up with his primary care provider in 4 to 7 days. He should follow up with wound care center today as scheduled. The patient was instructed to pickup his BiPAP machine at the [facility], verbalized understanding. The patient should return to the emergency room for any chest pain, shortness of breath, or any of his worsening symptoms, fever or chills. CONDITION ON DISCHARGE: Improved. DISPOSITION: Home. I have discussed with my attending Dr. Gage Leon, he is in agreement with my plan. LENA ORDONEZ NP [id number]/[facility] #: [id number] TRUPTI
== END 2019-03-30 09:24 | disposition home or self-care (01) | DRG 291 ==
LOC: ED 18:53 → MEDTELE 23:27 → OBSVTOIN 03-27 12:57
PROVIDERS: ADMIT Nurse Practitioner Family; ATTEND Internal Medicine
DX: I13.0 Hypertensive heart and chronic kidney disease with heart failure and stage 1 through stage 4 chronic kidney disease, or unspecified chronic kidney disease (principal); I50.23 Acute on chronic systolic (congestive) heart failure; J96.21 Acute and chronic respiratory failure with hypoxia; E11.22 Type 2 diabetes mellitus with diabetic chronic kidney disease; Z99.81 Dependence on supplemental oxygen; E11.51 Type 2 diabetes mellitus with diabetic peripheral angiopathy without gangrene; E11.621 Type 2 diabetes mellitus with foot ulcer; L97.529 Non-pressure chronic ulcer of other part of left foot with unspecified severity; I48.2 Chronic atrial fibrillation; J44.9 Chronic obstructive pulmonary disease, unspecified; N18.3 Chronic kidney disease, stage 3 (moderate); Z79.01 Long term (current) use of anticoagulants; G47.33 Obstructive sleep apnea (adult) (pediatric); I25.10 Atherosclerotic heart disease of native coronary artery without angina pectoris; K21.9 Gastro-esophageal reflux disease without esophagitis; E78.5 Hyperlipidemia, unspecified; M54.5 Low back pain; K58.9 Irritable bowel syndrome, unspecified; I45.10 Unspecified right bundle-branch block; R74.8 Abnormal levels of other serum enzymes; Z95.5 Presence of coronary angioplasty implant and graft; Z79.84 Long term (current) use of oral hypoglycemic drugs; Z79.02 Long term (current) use of antithrombotics/antiplatelets; Z79.4 Long term (current) use of insulin; Z79.891 Long term (current) use of opiate analgesic; Z79.51 Long term (current) use of inhaled steroids; Z79.899 Other long term (current) drug therapy; Z88.8 Allergy status to other drugs, medicaments and biological substances; Z88.5 Allergy status to narcotic agent; Z88.0 Allergy status to penicillin; Z91.013 Allergy to seafood; Z87.891 Personal history of nicotine dependence; I35.1 Nonrheumatic aortic (valve) insufficiency
CPT/HCPCS: 36415; 71045; 80048; 80053; 82803; 83605; 83880; 84484; 85025; 87040; 93005; 93306; 94660; 99285; A9270-GY; J1940

== ENCOUNTER 2019-04-28 17:26 | Observation (INO) | payer OTHER ==
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
[2019-04-28 18:18] LABS: ABS Basophils 0.1 10^3/ul (0-0.2); ABS Eosinophils 0.1 10^3/ul (0-0.6); ABS Lymphocytes 0.4 10^3/ul (1.0-4.8); ABS Monocytes 0.4 10^3/ul (0-0.8); Eosinophil % 1.3 %; Hematocrit 36 % (42-52); Hemoglobin 12.4 g/dL (14.0-18.0); Lymphocyte % 6.2 %; Mean Corpuscular HGB Conc 34 g/dL (31-36); Mean Corpuscular Hemoglobin 32 pg (27-31); Mean Corpuscular Volume 93 fL (80-94); Mean Platelet Volume 9.2 fL (7.4-10.4); Nucleated Red Blood Cells % 0.1; Platelet Count 129 10^3/uL (150-450); Red Blood Count 3.92 10^6 /uL (4.18-5.48); Red Cell Distribution Width 17 % (10-15); White Blood Count 7.1 10^3/uL (3.5-10.8)
[2019-04-28 18:34] LABS: ALT 10 U/L (7-52); AST 13 U/L (13-39); Albumin/Globulin Ratio 1.6 (1-3); Alkaline Phosphatase 92 U/L (34-104); Anion Gap 7 mmol/L (2-11); BUN/Creatinine Ratio 27.5 (8-20); Blood Urea Nitrogen 30 mg/dL (6-24); CO2 Carbon Dioxide 32 mmol/L (22-32); Calcium 9.4 mg/dL (8.6-10.3); Chloride 97 mmol/L (101-111); EGFR African American 81.2 (>60); EGFR Non-African American 67.1 (>60); Globulin 2.5 g/dL (2-4); Glucose 285 mg/dL (70-100); Potassium 4.4 mmol/L (3.5-5.0); Sodium 136 mmol/L (135-145); Total Protein 6.5 g/dL (6.4-8.9)
[2019-04-28 18:44] LABS: Troponin I 0.04 ng/mL (<0.04)
[2019-04-28] MEDS ORDERED: Albuterol 2.5 MG/3 ML NEB.SOL* (0.083%) INH PRN (19:40)
[2019-04-28] MEDS ORDERED: Loperamide CAP* 2 MG PO PRN (19:40)
[2019-04-28] MEDS ORDERED: Dextrose 50% Syringe 50 ML* 25 GM/50 ML SYRINGE IV PUSH PRN (19:43)
[2019-04-28 20:53] LABS: Activated Partial Thrombo Time 35.2 seconds (26.0-38.0); INR 1.19 (0.82-1.09)
[2019-04-28] MEDS ORDERED: Mometasone 220 MCG MDI INH SCH (21:00)
[2019-04-28] MEDS ORDERED: Furosemide TAB* 40 MG PO SCH (21:00)
[2019-04-28] MEDS ORDERED: Metoprolol Succinate XL TAB* 100 MG PO SCH (21:00)
[2019-04-28 21:08] LABS: Digoxin 0.6 ng/ml (0.8-2.0)
[2019-04-28 21:33] LABS: Troponin I 0.05 ng/mL (<0.04)
[2019-04-28] MEDS ORDERED: Furosemide IV* 10 MG/ML VIAL (40 MG) IV SLOW PU ONE (21:39)
[2019-04-28] MEDS: Furosemide IV* 10 MG/ML VIAL (40 MG) IV ONE ×2 (21:47→22:11)
[2019-04-28] MEDS: Mometasone 220 MCG MDI INH SCH (23:00)
[2019-04-28] MEDS: Insulin LISPRO* 1 UNITS UNIT SUBCUT SCH (23:20)
[2019-04-28] MEDS: Gabapentin CAP(*) 300 MG PO SCH (23:31)
[2019-04-28] MEDS: Potassium Chlor TAB* 20 MEQ TAB.ER PO SCH (23:33)
[2019-04-28] MEDS: OXcarbazepine TAB(*) 300 MG PO SCH (23:33)
[2019-04-28] MEDS: Apixaban* 5 MG TAB PO SCH (23:34)
[2019-04-28] MEDS: LORazepam TAB(*) 0.5 MG PO SCH (23:34)
[2019-04-28] MEDS: Atorvastatin* 10 MG TAB PO SCH (23:35)
[2019-04-28 23:53] LABS: Troponin I 0.05 ng/mL (<0.04)
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
[2019-04-29] MEDS: HYDROcodone/ACETAMIN 5-325 MG* 1 TAB PO PRN ×3 (01:48→17:42)
[2019-04-29 06:45] LABS: ABS Basophils 0.1 10^3/ul (0-0.2); ABS Eosinophils 0.2 10^3/ul (0-0.6); ABS Lymphocytes 0.8 10^3/ul (1.0-4.8); ABS Monocytes 0.5 10^3/ul (0-0.8); ABS Neutrophils 4.8 10^3/ul (1.5-7.7); Eosinophil % 2.4 %; Hematocrit 36 % (42-52); Hemoglobin 12.6 g/dL (14.0-18.0); Lymphocyte % 12.9 %; Mean Corpuscular HGB Conc 35 g/dL (31-36); Mean Corpuscular Hemoglobin 32 pg (27-31); Mean Corpuscular Volume 92 fL (80-94); Mean Platelet Volume 9.3 fL (7.4-10.4); Nucleated Red Blood Cells % 0.2; Platelet Count 127 10^3/uL (150-450); Red Blood Count 3.95 10^6 /uL (4.18-5.48); Red Cell Distribution Width 18 % (10-15); White Blood Count 6.4 10^3/uL (3.5-10.8)
[2019-04-29 07:05] LABS: BUN/Creatinine Ratio 23.9 (8-20); Calcium 9.1 mg/dL (8.6-10.3); EGFR African American 77.9 (>60); EGFR Non-African American 64.3 (>60); Potassium 3.8 mmol/L (3.5-5.0)
[2019-04-29] MEDS: OLODATEROL INH SCH (07:44)
[2019-04-29] MEDS: Mometasone 220 MCG MDI INH SCH ×2 (07:55→21:18)
[2019-04-29] MEDS ORDERED: Metolazone TAB* 5 MG PO SCH (08:30)
[2019-04-29] MEDS: amLODIPine TAB* 5 MG PO SCH (08:43)
[2019-04-29] MEDS: Clopidogrel TAB* 75 MG PO SCH (08:43)
[2019-04-29] MEDS: Metoprolol Succinate XL TAB* 50 MG PO SCH ×2 (08:44→21:42)
[2019-04-29] MEDS: Digoxin TAB* 0.125 MG PO SCH (08:44)
[2019-04-29] MEDS: Furosemide TAB* 20 MG PO SCH (08:44)
[2019-04-29] MEDS: Cholecalciferol TAB* 1000 UNITS PO SCH (08:44)
[2019-04-29] MEDS: metFORMIN* 500 MG TAB PO SCH (08:46)
[2019-04-29] MEDS: Gabapentin CAP(*) 300 MG PO SCH ×2 (08:47→21:41)
[2019-04-29] MEDS: LORazepam TAB(*) 0.5 MG PO SCH ×3 (08:47→21:42)
[2019-04-29] MEDS: Apixaban* 5 MG TAB PO SCH ×2 (08:47→21:41)
[2019-04-29] MEDS: Insulin GLARGINE(*) 1 UNITS UNIT SUBCUT SCH (08:48)
[2019-04-29] MEDS: Insulin LISPRO* 1 UNITS UNIT SUBCUT SCH ×4 (08:51→21:42)
[2019-04-29] MEDS: OXcarbazepine TAB(*) 300 MG PO SCH ×2 (08:57→21:40)
[2019-04-29] MEDS: Sertraline* 50 MG TAB PO SCH (08:57)
[2019-04-29] MEDS: Furosemide TAB* 40 MG PO SCH (08:57)
[2019-04-29] MEDS: Pantoprazole TAB * 40 MG TAB PO SCH (08:58)
[2019-04-29] MEDS: Tamsulosin CAP* 0.4 MG PO SCH (08:58)
--- NOTE | 2019-04-29 15:50 | PN ---
Subjective Date of Service: 04/29/19 Interval History: Patient resting in bed on assessment. at bedside and provides extra details regarding hx. Patient reports breathing is much improved from last evening when he was admitted. He is hoping to go home today. Patient denies chest pain, palpitations , dizziness, weakness. Patient reports pain in bilateral feet which is common for him and this is why he takes [place] every 6 hrs at home. Objective Active Medications: Hydrocodone Bitart/Acetaminophen ([place] 5-325 Tab*) 1 tab PO Q6H PRN PRN Reason: PAIN Last Admin: 04/29/19 12:21 Dose: 1 tab Albuterol (Ventolin 2.5 Mg/3 Ml Neb.Jessika*) 2.5 mg INH Q2HR PRN PRN Reason: SHORTNESS OF BREATH Amlodipine Besylate (Norvasc Tab*) 2.5 mg PO DAILY [facility] Last Admin: 04/29/19 08:43 Dose: 2.5 mg Apixaban (Eliquis*) 5 mg PO BID [facility] Last Admin: 04/29/19 08:47 Dose: 5 mg Atorvastatin Calcium (Lipitor*) 10 mg PO BEDTIME [facility] Last Admin: 04/28/19 23:35 Dose: 10 mg Cholecalciferol (Vitamin D Tab*) 2,000 units PO DAILY [facility] Last Admin: 04/29/19 08:44 Dose: 2,000 units Clopidogrel Bisulfate (Plavix Tab*) 75 mg PO DAILY [facility] Last Admin: 04/29/19 08:43 Dose: 75 mg Dextrose (D50w Syringe 50 Ml*) 12.5 gm IV PUSH .FOR FS < 60 - SS PRN PRN Reason: FS < 60 Digoxin (Lanoxin Tab*) 0.125 mg PO DAILY [facility] Last Admin: 04/29/19 08:44 Dose: 0.125 mg Furosemide (Lasix Tab*) 80 mg PO DAILY [facility] Last Admin: 04/29/19 08:57 Dose: 80 mg Furosemide (Lasix Tab*) 20 mg PO DAILY [facility] Last Admin: 04/29/19 08:44 Dose: 20 mg Gabapentin (Neurontin Cap(*)) 1,200 mg PO BID [facility] Last Admin: 04/29/19 08:47 Dose: 1,200 mg Insulin Glargine (Lantus(*)) 40 units SUBCUT QAM [facility] Last Admin: 04/29/19 08:48 Dose: 40 units Insulin Human Lispro (Humalog*) 0 units SUBCUT ACHS [facility]; Protocol Last Admin: 04/29/19 12:12 Dose: Not Given Loperamide HCl (Imodium Cap*) 2 mg PO Q6H PRN PRN Reason: DIARRHEA Lorazepam (Ativan Tab(*)) 0.5 mg PO TID [facility] Last Admin: 04/29/19 14:14 Dose: 0.5 mg Metformin HCl (Glucophage*) 500 mg PO QPM [facility] Metformin HCl (Glucophage*) 1,000 mg PO QAM [facility] Last Admin: 04/29/19 08:46 Dose: 1,000 mg Metolazone (Zaroxolyn Tab*) 5 mg PO ONCE ONE Stop: 04/29/19 21:41 Metoprolol Succinate (Toprol Xl Tab*) 75 mg PO BID [facility] Last Admin: 04/29/19 08:44 Dose: 75 mg Mometasone Furoate (Asmanex 220 Mcg Mdi *) 2 puff INH BID [facility]; Protocol Last Admin: 04/29/19 07:55 Dose: 2 puff Olodaterol (Striverdi Respimat (Nf)) 2 puff INH QAM [facility] Last Admin: 04/29/19 07:44 Dose: Not Given Oxcarbazepine (Trileptal Tab(*)) 300 mg PO BID [facility] Last Admin: 04/29/19 08:57 Dose: 300 mg Pantoprazole Sodium (Protonix Tab*) 40 mg PO DAILY [facility] Last Admin: 04/29/19 08:58 Dose: 40 mg Potassium Chloride (Klor Con Er Tab*) 20 meq PO BEDTIME [facility] Last Admin: 04/28/19 23:33 Dose: 20 meq Sertraline HCl (Zoloft*) 50 mg PO DAILY [facility] Last Admin: 04/29/19 08:57 Dose: 50 mg Tamsulosin HCl (Flomax Cap*) 0.4 mg PO DAILY [facility] Last Admin: 04/29/19 08:58 Dose: 0.4 mg Vital Signs - 8 hr 04/29/19 04/29/19 04/29/19 07:57 08:00 08:44 Pulse Rate 50 76 Respiratory 16 19 Rate O2 Sat by Pulse 95 Oximetry 04/29/19 04/29/19 04/29/19 08:47 12:12 12:13 Pulse Rate Respiratory 17 17 17 Rate O2 Sat by Pulse Oximetry 04/29/19 04/29/19 12:21 14:14 Pulse Rate Respiratory 17 19 Rate O2 Sat by Pulse Oximetry Oxygen Devices in Use Now: Nasal Cannula Appearance: Comfortable, NAD Eyes: No Scleral Icterus Ears/Nose/Mouth/Throat: Clear Oropharnyx, Mucous Membranes Moist Neck: NL Appearance and Movements; NL JVP Respiratory: Symmetrical Chest Expansion and Respiratory Effort, Clear to Auscultation Cardiovascular: NL Sounds; No Murmurs; No JVD, RRR, No Edema Abdominal: NL Sounds; No Tenderness; No Distention Lymphatic: No Cervical Adenopathy Extremities: No Clubbing, Cyanosis Neurological: Alert and Oriented x 3, NL Muscle Strength and Tone Nutrition: Taking PO's Result Diagrams: 04/29/19 06:31 04/29/19 06:31 Additional Lab and Data: Laboratory Results - last 24 hr 04/28/19 04/28/19 04/28/19 18:05 18:05 18:05 WBC 7.1 RBC 3.92 L Hgb 12.4 L Hct 36 L MCV 93 MCH 32 H MCHC 34 RDW 17 H Plt Count 129 L MPV 9.2 Neut % (Auto) 85.0 Lymph % (Auto) 6.2 [place] % (Auto) 6.3 Eos % (Auto) 1.3 Baso % (Auto) 1.2 Absolute Neuts (auto) 6.0 Absolute Lymphs (auto) 0.4 L Absolute Monos (auto) 0.4 Absolute Eos (auto) 0.1 Absolute Basos (auto) 0.1 Absolute Nucleated RBC 0.0 Nucleated RBC % 0.1 INR (Anticoag Therapy) APTT Sodium 136 Potassium 4.4 Chloride 97 L Carbon Dioxide 32 Anion Gap 7 BUN 30 H Creatinine 1.09 Est GFR ( Amer) 81.2 Est GFR (Non-Af Amer) 67.1 BUN/Creatinine Ratio 27.5 H Glucose 285 H POC Glucose (mg/dL) Lactic Acid 1.3 Calcium 9.4 Total Bilirubin 0.70 AST 13 ALT 10 Alkaline Phosphatase 92 Troponin I 0.04 H* B-Natriuretic Peptide Total Protein 6.5 Albumin 4.0 Globulin 2.5 Albumin/Globulin Ratio 1.6 Digoxin 0.6 L 04/28/19 04/28/19 04/28/19 18:05 18:05 21:01 WBC RBC Hgb Hct MCV MCH MCHC RDW Plt Count MPV Neut % (Auto) Lymph % (Auto) [place] % (Auto) Eos % (Auto) Baso % (Auto) Absolute Neuts (auto) Absolute Lymphs (auto) Absolute Monos (auto) Absolute Eos (auto) Absolute Basos (auto) Absolute Nucleated RBC Nucleated RBC % INR (Anticoag Therapy) 1.19 H APTT 35.2 Sodium Potassium Chloride Carbon Dioxide Anion Gap BUN Creatinine Est GFR ( Amer) Est GFR (Non-Af Amer) BUN/Creatinine Ratio Glucose POC Glucose (mg/dL) Lactic Acid Calcium Total Bilirubin AST ALT Alkaline Phosphatase Troponin I 0.05 H* B-Natriuretic Peptide 817 H Total Protein Albumin Globulin Albumin/Globulin Ratio Digoxin 04/28/19 04/28/19 04/29/19 22:47 23:25 06:31 WBC 6.4 RBC 3.95 L Hgb 12.6 L Hct 36 L MCV 92 MCH 32 H MCHC 35 RDW 18 H Plt Count 127 L MPV 9.3 Neut % (Auto) 75.3 Lymph % (Auto) 12.9 [place] % (Auto) 8.1 Eos % (Auto) 2.4 Baso % (Auto) 1.3 Absolute Neuts (auto) 4.8 Absolute Lymphs (auto) 0.8 L Absolute Monos (auto) 0.5 Absolute Eos (auto) 0.2 Absolute Basos (auto) 0.1 Absolute Nucleated RBC 0.0 Nucleated RBC % 0.2 INR (Anticoag Therapy) APTT Sodium Potassium Chloride Carbon Dioxide Anion Gap BUN Creatinine Est GFR ( Amer) Est GFR (Non-Af Amer) BUN/Creatinine Ratio Glucose POC Glucose (mg/dL) 345 H Lactic Acid Calcium Total Bilirubin AST ALT Alkaline Phosphatase Troponin I 0.05 H* B-Natriuretic Peptide Total Protein Albumin Globulin Albumin/Globulin Ratio Digoxin 04/29/19 04/29/19 04/29/19 06:31 07:49 11:47 WBC RBC Hgb Hct MCV MCH MCHC RDW Plt Count MPV Neut % (Auto) Lymph % (Auto) [place] % (Auto) Eos % (Auto) Baso % (Auto) Absolute Neuts (auto) Absolute Lymphs (auto) Absolute Monos (auto) Absolute Eos (auto) Absolute Basos (auto) Absolute Nucleated RBC Nucleated RBC % INR (Anticoag Therapy) APTT Sodium 140 Potassium 3.8 Chloride 100 L Carbon Dioxide 34 H Anion Gap 6 BUN 27 H Creatinine 1.13 Est GFR ( Amer) 77.9 Est GFR (Non-Af Amer) 64.3 BUN/Creatinine Ratio 23.9 H Glucose 224 H POC Glucose (mg/dL) 212 H 281 H Lactic Acid Calcium 9.1 Total Bilirubin AST ALT Alkaline Phosphatase Troponin I B-Natriuretic Peptide Total Protein Albumin Globulin Albumin/Globulin Ratio Digoxin Microbiology and Other Data: . Assess/Plan/Problems-Billing Assessment: 68 yr old male with pmh of chf, copd, ckd, afib, cad, [place], dm, htn, gerd, ibs, pvd, bph; who presented to ED with SOB. - Patient Problems (1) Acute on chronic systolic heart failure Comment: - SOB improving per patient - Received total of 40 mg IV lasix at last evening. - Continue home diurectics - Adequate output documented today (2) Chronic respiratory failure with hypoxia Comment: - On home O2 level (3) Hypertension Comment: - Stable (4) Sleep apnea Comment: - Bipap at night (5) Atrial fibrillation Comment: - Sinus with PVCs on tele - Cont home medications (6) CAD (coronary artery disease) SNOMED Code(s): 68632126 Comment: - Baseline elevated troponin - Asymptomatic - No EKG changes - Continue home medications (7) CKD (chronic kidney disease) stage 3, GFR 30-59 ml/min Comment: -Cr within normal -Continue to monitor (8) COPD (chronic obstructive pulmonary disease) Comment: - Uses supplemental O2 at home and is at baseline - No evidence of COPD exacerbation (9) GERD (gastroesophageal reflux disease) Comment: - Continue protonix. (10) HLD (hyperlipidemia) Comment: - Continue atorvastatin (11) Type 2 diabetes mellitus Comment: - Continue home metformin and Lantus - Cont ACHS Finger Sticks and SS (12) Elevated troponin Comment: - Denies chest pain - At baseline - No further work-up at this time (13) DVT prophylaxis Comment: -[place] (14) Full code status Status and Disposition: OBV. Cont monitoring for need for more diuretics Attending: Daysi Pathak
[2019-04-29] MEDS ORDERED: metFORMIN* 500 MG TAB PO SCH (18:00)
[2019-04-29] MEDS ORDERED: HYDROcodone/ACET. 7.5/325 LIQ* 15 ML UDC PO PRN (18:54)
[2019-04-29] MEDS ORDERED: Metolazone TAB* 5 MG PO ONE (21:40)
[2019-04-29] MEDS: Potassium Chlor TAB* 20 MEQ TAB.ER PO SCH (21:40)
[2019-04-29] MEDS: Atorvastatin* 10 MG TAB PO SCH (21:41)
[2019-04-30 06:48] LABS: BUN/Creatinine Ratio 32.5 (8-20); Calcium 9.2 mg/dL (8.6-10.3); EGFR African American 70.6 (>60); EGFR Non-African American 58.3 (>60); Potassium 4.2 mmol/L (3.5-5.0)
[2019-04-30] MEDS: OLODATEROL INH SCH (07:05)
[2019-04-30] MEDS: Insulin LISPRO* 1 UNITS UNIT SUBCUT SCH (07:42)
[2019-04-30] MEDS: Mometasone 220 MCG MDI INH SCH (07:47)
[2019-04-30 08:01] VITALS: BP 120/68
[2019-04-30] MEDS: Insulin GLARGINE(*) 1 UNITS UNIT SUBCUT SCH (08:19)
[2019-04-30] MEDS: Gabapentin CAP(*) 300 MG PO SCH (08:20)
[2019-04-30] MEDS: OXcarbazepine TAB(*) 300 MG PO SCH (08:21)
[2019-04-30] MEDS: LORazepam TAB(*) 0.5 MG PO SCH (08:22)
[2019-04-30] MEDS: metFORMIN* 500 MG TAB PO SCH (08:22)
[2019-04-30] MEDS: Furosemide TAB* 40 MG PO SCH (08:22)
[2019-04-30] MEDS: Sertraline* 50 MG TAB PO SCH (08:24)
[2019-04-30] MEDS: Clopidogrel TAB* 75 MG PO SCH (08:24)
[2019-04-30] MEDS: Pantoprazole TAB * 40 MG TAB PO SCH (08:24)
[2019-04-30] MEDS: Furosemide TAB* 20 MG PO SCH (08:24)
[2019-04-30] MEDS: Tamsulosin CAP* 0.4 MG PO SCH (08:24)
[2019-04-30] MEDS: Apixaban* 5 MG TAB PO SCH (08:25)
[2019-04-30] MEDS: Digoxin TAB* 0.125 MG PO SCH (08:25)
[2019-04-30] MEDS: Cholecalciferol TAB* 1000 UNITS PO SCH (08:25)
[2019-04-30] MEDS: Metoprolol Succinate XL TAB* 50 MG PO SCH (08:29)
[2019-04-30] MEDS: amLODIPine TAB* 5 MG PO SCH (08:29)
--- NOTE | 2019-04-30 22:47 | DS ---
CC: Dr. Whiteside, [place]; Dr. Walls, [place], [place] * DISCHARGE SUMMARY: DATE OF ADMISSION: 04/28/19 DATE OF DISCHARGE: 04/30/19 PRIMARY CARE PROVIDER: Dr. Whiteside at the [place]. OUTPATIENT TELEGRAPH OFFICE ROUTE AIDE: Dr. Walls at [facility] in [place]. ATTENDING PHYSICIAN: Dr. Pathak * (dictated by Vidhya Bello NP). PRIMARY DIAGNOSES: 1. Acute on chronic systolic heart failure. 2. Chronic respiratory failure with hypoxia. 3. Hypertension. 4. Sleep apnea. 5. Atrial fibrillation. 6. Coronary artery disease. 7. Chronic kidney disease. 8. Chronic obstructive pulmonary disease. 9. Gastroesophageal reflux disease. 10. Hyperlipidemia. 11. Type 2 diabetes. 12. Elevated troponin. STUDIES WHILE IN THE HOSPITAL: 1. Chest x-ray: Impression: Unchanged cardiomegaly. Mild interstitial pulmonary edema. Small pleural effusions on the right. Unchanged silhouetting of left hemidiaphragm by either subsegmental atelectasis, effusion, or airspace consolidation. 2. EKG: Impression: Atrial fibrillation. DISCHARGE HOME MEDICATIONS: Continued home medications: 1. Albuterol nebulizer as needed. 2. Amlodipine 2.5 mg p.o. daily. 3. Eliquis 5 mg p.o. b.i.d. 4. Atorvastatin 10 mg p.o. q.h.s. 5. Vitamin D 2000 units p.o. daily. 6. Plavix 75 mg p.o. daily. 7. Digoxin 0.125 mg p.o. daily. 8. Furosemide 100 mg in the morning and 80 mg in the evening. 9. Gabapentin 1200 mg p.o. b.i.d. 10. Hydrocodone/acetaminophen 1 tab p.o. q.6 hours p.r.n. pain. 11. Insulin glargine 40 units subcu daily. 12. Loperamide 2 mg as needed for diarrhea. 13. Ativan 0.5 mg p.o. t.i.d. for anxiety. 14. Metformin 1000 mg in the morning and 500 mg in the evening. 15. Metoprolol XL 100 mg p.o. b.i.d. 16. Asmanex 220 mcg 2 inhalations at bedtime. 17. Striverdi 2 inhalations daily. 18. Trileptal 300 mg p.o. b.i.d. 19. Pantoprazole 40 mg p.o. daily. 20. Potassium 20 mEq p.o. q.p.m. 21. Sertraline 50 mg p.o. daily. 22. Flomax 0.4 mg p.o. daily. Changed home medications: No home medications changed. New home medications: No new home medications. Discontinued home medications: No home medications discontinued. HISTORY OF PRESENT ILLNESS/HOSPITAL COURSE: Mr. Berrios is a 68-year-old male with a past medical history significant for CHF, COPD, CKD, atrial fibrillation , CAD, JOSIAH, diabetes, hypertension, GERD, chronic hypoxic respiratory failure, who presents to the emergency department on 04/28/19 with complaints of shortness of breath. Please see history and physical dictated by Quincy Paez MD, for complete summary of the events leading up to hospitalization, but in short while in the emergency room, the patient was noted to have a mildly elevated troponin at 0.04 and an elevated BNP at 817. Given these findings and the patient's recurrent presentation to the emergency room, hospitalists were asked to evaluate for admission. The patient has received IV diuresis in the form of Lasix. The patient has had repeat troponins which were 0.04, 0.05, 0.05 respectively. The patient was also restarted on his COPD medications as he has currently not been treated adequately as he has lost his medications for his COPD. In addition, the patient was monitored on telemetry and remained in AFib, rate controlled. The patient's echocardiogram was not repeated and he recently had an echo on 03/26/19. The patient has improved with IV diuresis. The patient has had adequate output and expressive relief in breathing. The patient is requesting discharge home. The patient is stable for discharge home. Vital Signs: Temp 97.5, HR 82, RR 18, O2 saturation 94% on 3 L, BP 120/68. REVIEW OF SYSTEMS: The patient denies shortness of breath, chest pain, palpitations, dizziness, fever, chills, nausea, vomiting. A 14-point review of systems was completed and all others were negative. PHYSICAL EXAM: General: Mr. Berrios is a 68-year-old male, who is sitting in bed. He appeared to be in no acute distress. He appeared stated age. HEENT: EOMs intact. PERRLA. Oral mucosa is moist without lesions. Posterior pharynx is clear. Neck: Supple. No lymphadenopathy. Cardiac: S1, S2 present. Irregular rhythm. Regular rate. No murmurs, rubs, or gallops. Respiratory: Good aeration. Lungs are clear. No wheezes, rhonchi, or rales. Abdomen: Soft , nontender. Bowel sounds normoactive. Extremities: No clubbing or cyanosis. No edema. Pedal pulses 2+ bilaterally. Musculoskeletal: No pain or deformities. Skin: Skin is grossly intact. The patient has intact dressing to left foot, which he has changed by the wound care once a week. Neuro: Neuro exam is grossly intact. No focal deficits or weakness. DISCHARGE PLAN: As follows: 1. Acute on chronic systolic heart failure: As mentioned above, the patient has improved greatly with IV diuresis and he had adequate urine output. I am going to continue the patient on his home diuretic regimen given he is on a large dose of Lasix and given he has a very delicate and very significant health history. I have gone ahead and set him up with an appointment with his medical detailist and also requested that his nurse practitioner see him at home early next week to assess his breathing status. I have educated the patient to weigh himself daily and call his practitioner immediately if has a greater than 3-pound weight gain. I have also encouraged the patient to return to the emergency department if he has any new or worsening symptoms. Finally, we have discussed a diet and fluid intake to reduce recurrence of acute on chronic heart failure. 2. Chronic respiratory failure with hypoxia: The patient reports he is usually on 3.5 L nasal cannula but over the past few weeks, he has had increased to 4.5 L. The patient is currently on 3 L and satting within normal limits. We will discharge him on this level and he can monitor himself accordingly. 3. Hypertension: The patient's blood pressure is stable and he should resume all of his home medications the same. 4. Sleep apnea: The patient is compliant with his BiPAP machine at night. The patient should continue this. 5. Atrial fibrillation: As mentioned above, the patient was in AFib, rate controlled on tele. He should continue with home medications. 6. CAD: As mentioned above, the patient did have an elevated troponin on admission, but this is at the patient's baseline and also did not increase. The patient has not had any chest pain. The patient has had no EKG changes. The patient should continue his home medications the same. 7. CKD: The patient's creatinine is within normal limits. 8. COPD: The patient should continue to use supplemental oxygen at home as he had previously. The patient should continue with home inhalers. I have refilled the patient's Asmanex at his request as this is the medication he lost. 9. GERD: The patient to continue his Protonix. 10. Hyperlipidemia: The patient should continue his atorvastatin. 11. Type 2 diabetes: The patient should continue his home metformin and insulin. 12. Followup: As mentioned above, I have placed a call to the patient's medical detailist and made an appointment for a followup for him. I have also placed a call to the patient's home-based primary care provider, who is a nurse practitioner through the [facility] and they will be contacting him Saturday morning to set up an appointment on Saturday, Saturday, or Saturday next week. 13. Education: I educated the patient and his on signs and symptoms of new or worsening condition and when to return to the emergency department. Both stated understanding. 14. Discharge: reports the patient's breathing is at his baseline and she feels comfortable with discharge. The patient also states this. This is a summarized report of the complex medical history and hospital stay. For further details, please see entire medical record. TIME SPENT: Approximately 45 minutes was spent on this discharge, greater than half that time was spent [id number] with the patient, discussing discharge plans and instructions. VIDHYA BELLO NP [id number]/[facility] #: [id number]
== END 2019-04-30 11:00 | disposition home or self-care (01) ==
LOC: ED 17:26 → MEDTELE 19:35
PROVIDERS: ADMIT Internal Medicine; ATTEND Internal Medicine
DX: I50.23 Acute on chronic systolic (congestive) heart failure (principal); J96.11 Chronic respiratory failure with hypoxia; I13.0 Hypertensive heart and chronic kidney disease with heart failure and stage 1 through stage 4 chronic kidney disease, or unspecified chronic kidney disease; E11.22 Type 2 diabetes mellitus with diabetic chronic kidney disease; N18.9 Chronic kidney disease, unspecified; Z79.4 Long term (current) use of insulin; G47.30 Sleep apnea, unspecified; I48.91 Unspecified atrial fibrillation; I25.10 Atherosclerotic heart disease of native coronary artery without angina pectoris; K21.9 Gastro-esophageal reflux disease without esophagitis; E78.5 Hyperlipidemia, unspecified; R79.89 Other specified abnormal findings of blood chemistry; Z79.01 Long term (current) use of anticoagulants; J81.1 Chronic pulmonary edema; J90 Pleural effusion, not elsewhere classified
CPT/HCPCS: 36415; 71045; 80048; 80053; 80162; 83605; 83880; 84484; 85025; 85610; 85730; 93005; 94640; 94660; 96372; 96374; 99284; A9270-GY; G0378; J1940

== ENCOUNTER 2019-05-01 09:58 | Emergency (ER) | payer OTHER ==
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
[2019-05-01 11:05] LABS: ABS Basophils 0.1 10^3/ul (0-0.2); ABS Eosinophils 0.1 10^3/ul (0-0.6); ABS Lymphocytes 0.7 10^3/ul (1.0-4.8); ABS Monocytes 0.5 10^3/ul (0-0.8); ABS Neutrophils 5.8 10^3/ul (1.5-7.7); Eosinophil % 1.9 %; Hematocrit 35 % (42-52); Lymphocyte % 9.2 %; Mean Corpuscular HGB Conc 34 g/dL (31-36); Mean Corpuscular Hemoglobin 32 pg (27-31); Mean Corpuscular Volume 93 fL (80-94); Platelet Count 134 10^3/uL (150-450); Red Blood Count 3.81 10^6 /uL (4.18-5.48); Red Cell Distribution Width 18 % (10-15); White Blood Count 7.3 10^3/uL (3.5-10.8)
[2019-05-01] MEDS ORDERED: Morphine 4 MG/ML VIAL (1 ml) 4 MG/ML VIAL IV ONE (11:10)
[2019-05-01 11:36] LABS: INR 1.33 (0.82-1.09)
[2019-05-01 11:40] LABS: Albumin 3.9 g/dL (3.2-5.2); Albumin/Globulin Ratio 1.6 (1-3); BUN/Creatinine Ratio 29.1 (8-20); C Reactive Protein 4.7 mg/L (<8.01); Calcium 9.4 mg/dL (8.6-10.3); EGFR African American 86.6 (>60); EGFR Non-African American 71.6 (>60); Globulin 2.4 g/dL (2-4); Potassium 4.4 mmol/L (3.5-5.0); Total Bilirubin 0.7 mg/dL (0.2-1.0); Total Protein 6.3 g/dL (6.4-8.9); Troponin I 0.05 ng/mL (<0.04)
[2019-05-01] MEDS ORDERED: Iodixanol* (CONTRAST) 320 MG/ML 100 ML SDV IV ONE (12:03)
[2019-05-01 13:01] LABS: Digoxin 0.6 ng/ml (0.8-2.0)
[2019-05-01] MEDS ORDERED: HYDROcodone/ACETAMIN 5-325 MG* 1 TAB PO ONE (13:22)
[2019-05-01 15:16] VITALS: BP 99/62
== END 2019-05-01 15:15 | disposition home or self-care (01) ==
LOC: ED 09:58
DX: J90 Pleural effusion, not elsewhere classified (principal); R11.2 Nausea with vomiting, unspecified; R58 Hemorrhage, not elsewhere classified; Z88.0 Allergy status to penicillin; Z79.01 Long term (current) use of anticoagulants; E11.9 Type 2 diabetes mellitus without complications; I10 Essential (primary) hypertension; Z86.73 Personal history of transient ischemic attack (TIA), and cerebral infarction without residual deficits; I25.10 Atherosclerotic heart disease of native coronary artery without angina pectoris; J44.9 Chronic obstructive pulmonary disease, unspecified; K21.9 Gastro-esophageal reflux disease without esophagitis; N40.0 Benign prostatic hyperplasia without lower urinary tract symptoms; F43.10 Post-traumatic stress disorder, unspecified; F17.210 Nicotine dependence, cigarettes, uncomplicated
CPT/HCPCS: 36415; 70450; 71260; 72125; 72128; 72131; 74177; 80053; 80162; 83880; 84484; 85025; 85610; 86140; 96374; 99284; J2270; Q9967

== ENCOUNTER 2019-05-10 10:12 | Inpatient (IN) | payer OTHER ==
[2019-05-10] MEDS ORDERED: NS 0.9% 1000 ML** 1,000 ML IV ONE (10:35)
[2019-05-10] MEDS ORDERED: Dexamethasone IV* 4 MG/ML 1 ML (4 MG) IV SLOW PU ONE (10:37)
[2019-05-10] MEDS ORDERED: Albuterol/Ipratropium NEB.SOL* Albuterol 2.5 MG/Ipratropium 0.5 MG 3 ML INH ONE (10:37)
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
[2019-05-10 11:12] LABS: ABS Basophils 0.1 10^3/ul (0-0.2); ABS Eosinophils 0.1 10^3/ul (0-0.6); ABS Lymphocytes 0.5 10^3/ul (1.0-4.8); ABS Monocytes 0.4 10^3/ul (0-0.8); ABS Neutrophils 5.8 10^3/ul (1.5-7.7); Eosinophil % 0.9 %; Hematocrit 35 % (42-52); Hemoglobin 11.2 g/dL (14.0-18.0); Mean Corpuscular HGB Conc 32 g/dL (31-36); Mean Corpuscular Hemoglobin 30 pg (27-31); Mean Corpuscular Volume 94 fL (80-94); Mean Platelet Volume 9.1 fL (7.4-10.4); Platelet Count 157 10^3/uL (150-450); Red Cell Distribution Width 17 % (10-15); White Blood Count 6.8 10^3/uL (3.5-10.8)
[2019-05-10 11:17] LABS: INR 1.45 (0.82-1.09)
[2019-05-10 11:22] LABS: ALT 12 U/L (7-52); AST 12 U/L (13-39); Albumin 3.8 g/dL (3.2-5.2); Albumin/Globulin Ratio 1.4 (1-3); Alkaline Phosphatase 94 U/L (34-104); Anion Gap 8 mmol/L (2-11); BUN/Creatinine Ratio 21.7 (8-20); Blood Urea Nitrogen 26 mg/dL (6-24); CO2 Carbon Dioxide 30 mmol/L (22-32); Calcium 9.3 mg/dL (8.6-10.3); Chloride 96 mmol/L (101-111); EGFR African American 72.6 (>60); Globulin 2.8 g/dL (2-4); Glucose 348 mg/dL (70-100); Magnesium 1.4 mg/dL (1.9-2.7); Potassium 4.3 mmol/L (3.5-5.0); Sodium 134 mmol/L (135-145); Total Protein 6.6 g/dL (6.4-8.9)
[2019-05-10 11:28] LABS: Troponin I 0.04 ng/mL (<0.04)
[2019-05-10 11:56] LABS: Acetaminophen < 15 mcg/mL; Alcohol < 10 mg/dL (<10); Digoxin 0.8 ng/ml (0.8-2.0); Salicylate < 2.50 mg/dL (<30)
[2019-05-10 11:59] LABS: Activated Partial Thrombo Time 37.7 seconds (26.0-38.0)
[2019-05-10] MEDS ORDERED: Furosemide IV* 10 MG/ML VIAL (40 MG) IV ONE (12:07)
[2019-05-10 12:11] LABS: TSH (Thyroid Stimulating Horm) 4.62 mcIU/mL (0.34-5.60)
[2019-05-10] MEDS ORDERED: Furosemide IV* 10 MG/ML 10 ML VIAL (100 MG) IV ONE ×2 (12:11→19:00)
[2019-05-10] MEDS ORDERED: Magnesium Sulfate 2 GM IV* 2 GM/50 ML BAG IVPB ONE (12:23)
[2019-05-10 12:28] LABS: Urine Appearance Clear; Urine Bacteria Absent (Absent); Urine Bilirubin Negative (Negative); Urine Blood 1+ (Negative); Urine Color Yellow; Urine Glucose 2+(150 mg/dL) (Negative); Urine Ketones Negative (Negative); Urine Nitrite Negative (Negative); Urine Protein Negative (Negative); Urine Red Blood Cell Trace(0-2/hpf) (Absent); Urine Specific Gravity 1.009 (1.010-1.030); Urine Urobilinogen Negative (Negative); Urine White Blood Cell Absent (Absent)
[2019-05-10] MEDS ORDERED: Albuterol 2.5 MG/3 ML NEB.SOL* (0.083%) INH PRN (13:49)
[2019-05-10] MEDS ORDERED: Loperamide CAP* 2 MG PO PRN (13:49)
[2019-05-10] MEDS ORDERED: Dextrose 50% Syringe 50 ML* 25 GM/50 ML SYRINGE IV PUSH PRN (14:50)
[2019-05-10] MEDS ORDERED: LORazepam TAB(*) 0.5 MG PO SCH (16:00)
[2019-05-10] MEDS ORDERED: Lorazepam PYXIS KEY ONE (16:35)
[2019-05-10] MEDS ORDERED: Morphine 4 MG/ML VIAL (1 ml) 4 MG/ML VIAL ONE (16:35)
[2019-05-10] MEDS ORDERED: LORazepam INJ* 2 MG/ML 1 ML VIAL ONE (16:36)
[2019-05-10] MEDS ORDERED: Lorazepam PYXIS KEY PRN (16:37)
[2019-05-10] MEDS: LORazepam INJ* 2 MG/ML 1 ML VIAL IV PUSH PRN (16:39)
[2019-05-10] MEDS: Insulin LISPRO* 1 UNITS UNIT SUBCUT SCH ×2 (16:51→22:24)
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
[2019-05-10 17:30] LABS: Troponin I 0.04 ng/mL (<0.04)
[2019-05-10] MEDS ORDERED: ACETAMINOPHEN PO SCH (18:00)
[2019-05-10] MEDS ORDERED: metFORMIN* 500 MG TAB PO SCH (18:00)
[2019-05-10] MEDS ORDERED: HYDROCODONE PO SCH (18:00)
[2019-05-10] MEDS: Atorvastatin* 10 MG TAB PO SCH (20:36)
[2019-05-10] MEDS: Mometasone 220 MCG MDI INH SCH (20:36)
[2019-05-10] MEDS: Gabapentin CAP(*) 300 MG PO SCH (20:36)
[2019-05-10] MEDS: Apixaban* 5 MG TAB PO SCH (20:36)
[2019-05-10] MEDS: Metoprolol Succinate XL TAB* 100 MG PO SCH (20:36)
[2019-05-10] MEDS: OXcarbazepine TAB(*) 300 MG PO SCH (20:37)
[2019-05-10] MEDS ORDERED: Mometasone 220 MCG MDI INH SCH (21:00)
[2019-05-10 21:02] LABS: Troponin I 0.03 ng/mL (<0.04)
[2019-05-10] MEDS ORDERED: Insulin LISPRO* 1 UNITS UNIT SUBCUT ONE (21:15)
[2019-05-10] MEDS: Morphine INJ* 2 MG/ML 1 ML SYRINGE (TWO MG - NEW SYRINGE VERSION) IV PRN (22:38)
[2019-05-11] MEDS: LORazepam INJ* 2 MG/ML 1 ML VIAL IV PUSH PRN ×3 (02:02→23:08)
[2019-05-11 03:45] LABS: ABS Basophils 0.1 10^3/ul (0-0.2); ABS Lymphocytes 0.6 10^3/ul (1.0-4.8); ABS Monocytes 0.7 10^3/ul (0-0.8); Eosinophil % 0.2 %; Hematocrit 33 % (42-52); Hemoglobin 11.1 g/dL (14.0-18.0); Lymphocyte % 6.1 %; Mean Corpuscular HGB Conc 34 g/dL (31-36); Mean Corpuscular Hemoglobin 31 pg (27-31); Mean Corpuscular Volume 92 fL (80-94); Mean Platelet Volume 9.3 fL (7.4-10.4); Platelet Count 179 10^3/uL (150-450); Red Blood Count 3.58 10^6 /uL (4.18-5.48); Red Cell Distribution Width 17 % (10-15); White Blood Count 9.3 10^3/uL (3.5-10.8)
[2019-05-11 03:59] LABS: BUN/Creatinine Ratio 20.3 (8-20); EGFR African American 67.4 (>60); EGFR Non-African American 55.7 (>60); Phosphorus 3.5 mg/dL (2.5-5.0); Potassium 4.6 mmol/L (3.5-5.0)
[2019-05-11] MEDS: Morphine INJ* 2 MG/ML 1 ML SYRINGE (TWO MG - NEW SYRINGE VERSION) IV PRN ×4 (04:46→23:41)
[2019-05-11] MEDS: OLODATEROL INH SCH (07:30)
[2019-05-11] MEDS ORDERED: Furosemide IV* 10 MG/ML 10 ML VIAL (100 MG) IV SCH (08:00)
[2019-05-11] MEDS: Insulin LISPRO* 1 UNITS UNIT SUBCUT SCH ×4 (08:59→21:05)
[2019-05-11] MEDS ORDERED: metFORMIN* 500 MG TAB PO SCH (09:00)
[2019-05-11] MEDS ORDERED: Metolazone TAB* 5 MG PO ONE (09:10)
--- NOTE | 2019-05-11 09:10 | PN ---
Subjective Date of Service: 05/11/19 Interval History: HOSPITALIST PROGRESS NOTE Patient seen and examined at bedside. Care reviewed and d/w Olivia Royal RN. Still confused, but less so than last night. States he's feeling better this AM and wants to go home. As per , the patient had a fall from 9 steps after 04/30 discharge. Multiple falls at home after that. She states he's been compliant with diet and medications; weight was 215 yesterday at home. Family History: Unchanged from Admission Social History: Unchanged from Admission Past Medical History: Unchanged from Admission Objective Active Medications: Albuterol (Ventolin 2.5 Mg/3 Ml Neb.Jessika*) 2.5 mg INH Q2HR PRN PRN Reason: SHORTNESS OF BREATH Amlodipine Besylate (Norvasc Tab*) 2.5 mg PO DAILY [facility] Apixaban (Eliquis*) 5 mg PO BID [facility] Last Admin: 05/10/19 20:36 Dose: 5 mg Atorvastatin Calcium (Lipitor*) 10 mg PO BEDTIME [facility] Last Admin: 05/10/19 20:36 Dose: 10 mg Cholecalciferol (Vitamin D Tab*) 2,000 units PO DAILY [facility] Clopidogrel Bisulfate (Plavix Tab*) 75 mg PO DAILY [facility] Dextrose (D50w Syringe 50 Ml*) 12.5 gm IV PUSH .FOR FS < 60 - SS PRN PRN Reason: FS < 60 Digoxin (Lanoxin Tab*) 0.125 mg PO DAILY [facility] Furosemide (Lasix Iv*) 60 mg IV 0800,1700 [facility] Gabapentin (Neurontin Cap(*)) 1,200 mg PO BID [facility] Last Admin: 05/10/19 20:36 Dose: 1,200 mg Insulin Glargine (Lantus(*)) 40 units SUBCUT QAM [facility] Insulin Human Lispro (Humalog*) 0 units SUBCUT ACHS [facility]; Protocol Last Admin: 05/11/19 08:59 Dose: Not Given Loperamide HCl (Imodium Cap*) 2 mg PO Q6H PRN PRN Reason: DIARRHEA Lorazepam (Ativan Inj*) 1 mg IV PUSH Q6H PRN PRN Reason: Anxiety, aggitation Last Admin: 05/11/19 02:02 Dose: 1 mg Metoprolol Succinate (Toprol Xl Tab*) 100 mg PO BID [facility] Last Admin: 05/10/19 20:36 Dose: 100 mg Miscellaneous (Ativan Pyxis [place]) 1 ea N/A .ATIVAN IV [place] PRN PRN Reason: PYXIS [place]BER[place] Mometasone Furoate (Asmanex 220 Mcg Mdi *) 2 puff INH BEDTIME [facility]; Protocol Last Admin: 05/10/19 20:36 Dose: 2 puff Morphine Sulfate (Morphine Inj (Syringe))*) 2 mg IV Q4H PRN PRN Reason: Pain- mild; work of breathing Last Admin: 05/11/19 08:30 Dose: 2 mg Olodaterol (Striverdi Respimat (Nf)) 2 puff INH QAM [facility] Last Admin: 05/11/19 07:30 Dose: Not Given Oxcarbazepine (Trileptal Tab(*)) 300 mg PO BID [facility] Last Admin: 05/10/19 20:37 Dose: 300 mg Pantoprazole Sodium (Protonix Tab*) 40 mg PO DAILY [facility] Sertraline HCl (Zoloft*) 50 mg PO DAILY [facility] Tamsulosin HCl (Flomax Cap*) 0.4 mg PO DAILY [facility] Vital Signs - 8 hr 05/11/19 05/11/19 05/11/19 02:00 02:02 02:56 Temperature Pulse Rate 70 Respiratory 21 21 25 Rate Blood Pressure 128/77 (mmHg) O2 Sat by Pulse 96 Oximetry 05/11/19 05/11/19 05/11/19 03:00 03:14 04:00 Temperature 98.2 F Pulse Rate 72 77 Respiratory 11 28 Rate Blood Pressure 121/51 (mmHg) O2 Sat by Pulse 93 92 Oximetry 05/11/19 05/11/19 05/11/19 04:01 04:03 04:45 Temperature Pulse Rate 67 70 71 Respiratory 13 19 17 Rate Blood Pressure 105/59 92/72 134/63 (mmHg) O2 Sat by Pulse 94 94 98 Oximetry 05/11/19 05/11/19 05/11/19 04:46 05:00 05:01 Temperature Pulse Rate 80 Respiratory 20 18 17 Rate Blood Pressure 127/80 (mmHg) O2 Sat by Pulse 96 Oximetry 05/11/19 05/11/19 05/11/19 06:00 06:01 06:03 Temperature Pulse Rate 77 78 Respiratory 17 17 20 Rate Blood Pressure 139/71 (mmHg) O2 Sat by Pulse 97 96 Oximetry 05/11/19 05/11/19 05/11/19 07:00 07:01 08:00 Temperature 97.1 F Pulse Rate 81 89 Respiratory 16 28 23 Rate Blood Pressure 129/60 (mmHg) O2 Sat by Pulse 95 98 Oximetry 05/11/19 05/11/19 08:01 08:30 Temperature Pulse Rate Respiratory 22 14 Rate Blood Pressure 109/65 (mmHg) O2 Sat by Pulse Oximetry Oxygen Devices in Use Now: Nasal Cannula Appearance: Elderly gentleman sitting up in a recliner in NAD. Eyes: No Scleral Icterus Ears/Nose/Mouth/Throat: Mucous Membranes Moist Neck: Trachea Midline Respiratory: Symmetrical Chest Expansion and Respiratory Effort, - - BS+ bilaterally with bibasilar crackles Cardiovascular: RRR - Normal S1 and S2 Abdominal: NL Sounds; No Tenderness; No Distention Skin: - - Large ecchymosis left lower back/hip Neurological: Alert and Oriented x 3, NL Muscle Strength and Tone Result Diagrams: 05/11/19 03:08 05/11/19 03:08 Assess/Plan/Problems-Billing Assessment: Mr Berrios is a 68yo M with PMH of CHF with EF 40-45%, CAD, PVD, HTN, HLD, type 2 DM, Afib, COPD on home O2, JOSIAH, GERD, CKD stage 3, who presented to ED with c/o dyspnea and confusion, found to have acute CHF exacerbation. - Patient Problems (1) Acute and chronic respiratory failure with hypoxia Comment: - Secondary to CHF exacerbation. - Initially required Vapotherm, now back on NC 6 liters, closer to his baseline of 4 liters. (2) Acute on chronic systolic heart failure Comment: - This is his 3rd admission since March. - As per , compliant with medications and diet - weight was 215lbs at home yesterday, up to 221lbs today. - Will add metolazone to Furosemide to optimize diuresis - monitor UO. - Echo done in showed no significant changes from 2017. - [facility] (3) Confusion Comment: - He appears to have some degree of chronic, mild cognitive impairment , now exacerbated in the setting of hypoxia and multiple hospital admissions. - Continue to monitor. (4) Hip pain Comment: - Unclear timing as per patient, but thinks this was after the fall on 04/30. - Check CT pelvis. (5) Type 2 diabetes mellitus Comment: - Continue Lantus and Lispro SS. - Metformin on hold in the setting of lactic acidosis. (6) Atrial fibrillation Comment: - Rate controlled. - Continue Apixaban and Metoprolol. (7) Physical deconditioning Comment: - PT/OT consults - will probably need MINOO. (8) DVT prophylaxis Comment: - Apixaban. (9) Full code status Status and Disposition: Inpatient. updated at bedside. Not safe for discharge at this time and I don't think he has the capacity to sign out AMA due to his confusion (even though improving). would have to sign him put if she so desires. I don't think he's safe for discharge home, as evidenced by his multiple falls at home (including one from the stairs) and multiple admissions since March.
[2019-05-11] MEDS: amLODIPine TAB* 5 MG PO SCH (10:14)
[2019-05-11] MEDS: Metoprolol Succinate XL TAB* 100 MG PO SCH ×2 (10:14→21:05)
[2019-05-11] MEDS: Clopidogrel TAB* 75 MG PO SCH (10:15)
[2019-05-11] MEDS: Tamsulosin CAP* 0.4 MG PO SCH (10:15)
[2019-05-11] MEDS: Cholecalciferol TAB* 1000 UNITS PO SCH (10:15)
[2019-05-11] MEDS: OXcarbazepine TAB(*) 300 MG PO SCH ×2 (10:15→21:06)
[2019-05-11] MEDS: Pantoprazole TAB * 40 MG TAB PO SCH (10:15)
[2019-05-11] MEDS: Insulin GLARGINE(*) 1 UNITS UNIT SUBCUT SCH (10:15)
[2019-05-11] MEDS: Sertraline* 50 MG TAB PO SCH (10:15)
[2019-05-11] MEDS: Gabapentin CAP(*) 300 MG PO SCH ×2 (10:15→21:05)
[2019-05-11] MEDS: Digoxin TAB* 0.125 MG PO SCH (10:15)
[2019-05-11] MEDS: Apixaban* 5 MG TAB PO SCH ×2 (10:16→21:05)
[2019-05-11] MEDS: Furosemide IV* 10 MG/ML 10 ML VIAL (100 MG) IV SCH ×2 (10:50→16:43)
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
[2019-05-11] MEDS: Mometasone 220 MCG MDI INH SCH (19:23)
[2019-05-11] MEDS: Atorvastatin* 10 MG TAB PO SCH (21:05)
[2019-05-12] MEDS: LORazepam INJ* 2 MG/ML 1 ML VIAL IV PUSH PRN (02:01)
[2019-05-12 05:24] LABS: ABS Basophils 0.1 10^3/ul (0-0.2); ABS Eosinophils 0.1 10^3/ul (0-0.6); ABS Lymphocytes 0.9 10^3/ul (1.0-4.8); ABS Monocytes 0.6 10^3/ul (0-0.8); ABS Neutrophils 7.4 10^3/ul (1.5-7.7); Eosinophil % 1.3 %; Hematocrit 36 % (42-52); Lymphocyte % 10.1 %; Mean Corpuscular HGB Conc 34 g/dL (31-36); Mean Corpuscular Hemoglobin 31 pg (27-31); Mean Corpuscular Volume 92 fL (80-94); Mean Platelet Volume 8.9 fL (7.4-10.4); Nucleated Red Blood Cells % 0.1; Platelet Count 191 10^3/uL (150-450); Red Blood Count 3.88 10^6 /uL (4.18-5.48); Red Cell Distribution Width 17 % (10-15); White Blood Count 9.1 10^3/uL (3.5-10.8)
[2019-05-12 05:37] LABS: BUN/Creatinine Ratio 27.2 (8-20); Calcium 9.5 mg/dL (8.6-10.3); EGFR African American 57.5 (>60); EGFR Non-African American 47.5 (>60); Magnesium 1.8 mg/dL (1.9-2.7); Phosphorus 4.1 mg/dL (2.5-5.0); Potassium 4.2 mmol/L (3.5-5.0)
--- NOTE | 2019-05-12 08:19 | PN ---
Subjective Date of Service: 05/12/19 Interval History: HOSPITALIST PROGRESS NOTE Patient seen and examined at bedside. Care reviewed and d/w Swetha Smith RN. He was feeling well when he woke up, but developed dyspnea when walked from bed to toilet and back. states this is not unusual for him. When he has an appointment, he would walk to the doorway and stop, then from the door to the car and she would be there waiting with his portable oxygen ready. He denies CP, palpitations, appetite is preserved. Family History: Unchanged from Admission Social History: Unchanged from Admission Past Medical History: Unchanged from Admission Objective Active Medications: Albuterol (Ventolin 2.5 Mg/3 Ml Neb.Jessika*) 2.5 mg INH Q2HR PRN PRN Reason: SHORTNESS OF BREATH Amlodipine Besylate (Norvasc Tab*) 2.5 mg PO DAILY [facility] Last Admin: 05/11/19 10:14 Dose: 2.5 mg Apixaban (Eliquis*) 5 mg PO BID [facility] Last Admin: 05/11/19 21:05 Dose: 5 mg Atorvastatin Calcium (Lipitor*) 10 mg PO BEDTIME [facility] Last Admin: 05/11/19 21:05 Dose: 10 mg Cholecalciferol (Vitamin D Tab*) 2,000 units PO DAILY [facility] Last Admin: 05/11/19 10:15 Dose: 2,000 units Clopidogrel Bisulfate (Plavix Tab*) 75 mg PO DAILY [facility] Last Admin: 05/11/19 10:15 Dose: 75 mg Dextrose (D50w Syringe 50 Ml*) 12.5 gm IV PUSH .FOR FS < 60 - SS PRN PRN Reason: FS < 60 Digoxin (Lanoxin Tab*) 0.125 mg PO DAILY [facility] Last Admin: 05/11/19 10:15 Dose: 0.125 mg Furosemide (Lasix Iv*) 60 mg IV 0930,1700 [facility] Last Admin: 05/11/19 16:43 Dose: 60 mg Gabapentin (Neurontin Cap(*)) 1,200 mg PO BID [facility] Last Admin: 05/11/19 21:05 Dose: 1,200 mg Insulin Glargine (Lantus(*)) 40 units SUBCUT QAM [facility] Last Admin: 05/11/19 10:15 Dose: 40 unit Insulin Human Lispro (Humalog*) 0 units SUBCUT ACHS [facility]; Protocol Last Admin: 05/11/19 21:05 Dose: Not Given Loperamide HCl (Imodium Cap*) 2 mg PO Q6H PRN PRN Reason: DIARRHEA Lorazepam (Ativan Inj*) 1 mg IV PUSH Q6H PRN PRN Reason: Anxiety, aggitation Last Admin: 05/12/19 02:01 Dose: 1 mg Metoprolol Succinate (Toprol Xl Tab*) 100 mg PO BID [facility] Last Admin: 05/11/19 21:05 Dose: 100 mg Miscellaneous (Ativan Pyxis [place]) 1 ea N/A .ATIVAN IV EISENBERG PRN PRN Reason: PYXIS EISENBERG Mometasone Furoate (Asmanex 220 Mcg Mdi *) 2 puff INH BEDTIME [facility]; Protocol Last Admin: 05/11/19 19:23 Dose: 2 puff Morphine Sulfate (Morphine Inj (Syringe))*) 2 mg IV Q4H PRN PRN Reason: Pain- mild; work of breathing Last Admin: 05/11/19 23:41 Dose: 2 mg Olodaterol ([place] Respimat (Nf)) 2 puff INH QAM [facility] Last Admin: 05/11/19 07:30 Dose: Not Given Oxcarbazepine (Trileptal Tab(*)) 300 mg PO BID [facility] Last Admin: 05/11/19 21:06 Dose: 300 mg Pantoprazole Sodium (Protonix Tab*) 40 mg PO DAILY [facility] Last Admin: 05/11/19 10:15 Dose: 40 mg Sertraline HCl (Zoloft*) 50 mg PO DAILY [facility] Last Admin: 05/11/19 10:15 Dose: 50 mg Tamsulosin HCl (Flomax Cap*) 0.4 mg PO DAILY [facility] Last Admin: 05/11/19 10:15 Dose: 0.4 mg Vital Signs - 8 hr 05/12/19 05/12/19 05/12/19 01:00 01:35 02:01 Temperature Pulse Rate 67 72 Respiratory 22 20 26 Rate Blood Pressure 129/74 157/74 (mmHg) O2 Sat by Pulse 89 85 Oximetry 05/12/19 05/12/19 05/12/19 03:01 03:27 04:01 Temperature 97.7 F Pulse Rate 71 70 Respiratory 24 18 Rate Blood Pressure 132/61 147/86 (mmHg) O2 Sat by Pulse 97 92 Oximetry 05/12/19 07:43 Temperature 97.2 F Pulse Rate Respiratory Rate Blood Pressure (mmHg) O2 Sat by Pulse Oximetry Oxygen Devices in Use Now: Nasal Cannula - 4 liters Appearance: Elderly gentleman sitting up in bed in NAD Eyes: No Scleral Icterus Ears/Nose/Mouth/Throat: Mucous Membranes Moist Neck: Trachea Midline Respiratory: Symmetrical Chest Expansion and Respiratory Effort, - - BS+ bilaterally diminished, no added sounds Cardiovascular: RRR - Normal S1 and S2 Abdominal: NL Sounds; No Tenderness; No Distention Extremities: - - Bilateral LE mild pitting edema Skin: - - left elbow is erythematous with small area that's about to open and drain Neurological: Alert and Oriented x 3 - but confused, NL Muscle Strength and Tone Result Diagrams: 05/12/19 05:07 05/12/19 05:07 Assess/Plan/Problems-Billing Assessment: Mr Berrios is a 68yo M with PMH of CHF with EF 40-45%, CAD, PVD, HTN, HLD, type 2 DM, Afib, COPD on home O2, JOSIAH, GERD, CKD stage 3, who presented to ED with c/o dyspnea and confusion, found to have acute CHF exacerbation. - Patient Problems (1) Acute and chronic respiratory failure with hypoxia Comment: - Secondary to CHF exacerbation. - Initially required Vapotherm, now back on NC 4 liters, close to his baseline, but his baseline is very tenuous. (2) Acute on chronic systolic heart failure Comment: - This is his 3rd admission since March. - As per , compliant with medications and diet - weight was 215lbs at home yesterday, up to 221lbs yesterday, down to 219 today. - Responded well to metolazone and Furosemide, but creatinine trending up - will continue IV Furosemide and monitor. - Echo done in showed no significant changes from 2017. (3) Confusion Comment: - He appears to have some degree of chronic, mild cognitive impairment , now exacerbated in the setting of hypoxia and multiple hospital admissions. - Continue to monitor. (4) Hip pain Comment: - Unclear timing as per patient, but thinks this was after the fall on 04/30. - CT pelvis negative for fracture. (5) Type 2 diabetes mellitus Comment: - Continue Lantus and Lispro SS. There is no [facility] insulin [facility]. - Metformin on hold in the setting of lactic acidosis. (6) Olecranon bursitis of left elbow Comment: - Likely secondary to trauma after fall 04/30 - Ortho consult requested with Dr Lopez. - Will start Clindamycin (allergic to PCN). (7) Atrial fibrillation Comment: - Rate controlled. - Continue Apixaban and Metoprolol. (8) Physical deconditioning Comment: - PT/OT consults - will probably need MINOO. (9) DVT prophylaxis Comment: - Apixaban. (10) Full code status Status and Disposition: Inpatient. updated at bedside. Not safe for discharge at this time and I don't think he has the capacity to sign out AMA due to his confusion (even though improving). would have to sign him out if she so desires. I don't think he's safe for discharge home, as evidenced by his multiple falls at home (including one from the stairs) and multiple admissions since March. She' s agreeable with placement at the [facility] at this time.
[2019-05-12] MEDS: OLODATEROL INH SCH (08:20)
[2019-05-12] MEDS: Metoprolol Succinate XL TAB* 100 MG PO SCH ×2 (09:30→20:41)
[2019-05-12] MEDS: Insulin LISPRO* 1 UNITS UNIT SUBCUT SCH ×4 (09:40→20:34)
[2019-05-12] MEDS: Cholecalciferol TAB* 1000 UNITS PO SCH (09:41)
[2019-05-12] MEDS: Gabapentin CAP(*) 300 MG PO SCH ×2 (09:41→20:41)
[2019-05-12] MEDS: Tamsulosin CAP* 0.4 MG PO SCH (09:41)
[2019-05-12] MEDS: Sertraline* 50 MG TAB PO SCH (09:41)
[2019-05-12] MEDS: Apixaban* 5 MG TAB PO SCH ×2 (09:41→20:44)
[2019-05-12] MEDS: Clopidogrel TAB* 75 MG PO SCH (09:41)
[2019-05-12] MEDS: Digoxin TAB* 0.125 MG PO SCH (09:41)
[2019-05-12] MEDS: Insulin GLARGINE(*) 1 UNITS UNIT SUBCUT SCH (09:42)
[2019-05-12] MEDS: OXcarbazepine TAB(*) 300 MG PO SCH ×2 (09:42→20:42)
[2019-05-12] MEDS: amLODIPine TAB* 5 MG PO SCH (09:42)
[2019-05-12] MEDS: Furosemide IV* 10 MG/ML 10 ML VIAL (100 MG) IV SCH ×2 (09:43→16:40)
[2019-05-12] MEDS: Pantoprazole TAB * 40 MG TAB PO SCH (09:43)
[2019-05-12] MEDS ORDERED: Saline NASAL SPRAY 0.65%* BTL BOTH NARES PRN (13:00)
--- NOTE | 2019-05-12 15:26 | PN ---
Subjective Date of Service: 05/12/19 Interval History: Ms. Berrios is a 68 yo male with PMH significant for PTSD, CVA, IBS, systolic HF, chronic respiratory failure on supplemental O2, CAD, DM2, peripheral neuropathy , HTN, HLD, A fib, CKD, COPD, GERD, PVD, and JOSIAH; who presented to the hospital with complaints of shortness of breath and confusion. He was found to have an acute on chronic CHF exacerbation and acute on chronic hypoxic respiratory failure. He is followed by the wound clinic at the [facility]. He states that they apply a dressing and he is unsure what the dressing is, but his would know. He bumped his left sahni when getting up from the commode and this resulted in a skin tear earlier today. Patient seen and examined at bedside. ROS: Denies fever or chills. Reports DM2 and vascular problems. Family History: Unchanged from Admission Social History: Unchanged from Admission Past Medical History: Unchanged from Admission Objective Active Medications: Albuterol (Ventolin 2.5 Mg/3 Ml Neb.Jessika*) 2.5 mg INH Q2HR PRN Reason: SHORTNESS OF BREATH Amlodipine Besylate (Norvasc Tab*) 2.5 mg PO DAILY [facility] Apixaban (Eliquis*) 5 mg PO BID [facility] Atorvastatin Calcium (Lipitor*) 10 mg PO BEDTIME [facility] Cholecalciferol (Vitamin D Tab*) 2,000 units PO DAILY [facility] Clopidogrel Bisulfate (Plavix Tab*) 75 mg PO DAILY [facility] Dextrose (D50w Syringe 50 Ml*) 12.5 gm IV PUSH .FOR FS < 60 - SS PRN Reason: FS < 60 Digoxin (Lanoxin Tab*) 0.125 mg PO DAILY [facility] Furosemide (Lasix Iv*) 60 mg IV 0930,1700 [facility] Gabapentin (Neurontin Cap(*)) 600 mg PO BID [facility] Insulin Glargine (Lantus(*)) 40 units SUBCUT QAM [facility] Insulin Human Lispro (Humalog*) 0 units SUBCUT ACHS [facility]; Protocol Loperamide HCl (Imodium Cap*) 2 mg PO Q6H PRN Reason: DIARRHEA Lorazepam (Ativan Inj*) 1 mg IV PUSH Q6H PRN Reason: Anxiety, aggitation Metoprolol Succinate (Toprol Xl Tab*) 100 mg PO BID [facility] Miscellaneous (Ativan Pyxis Eisenberg) 1 ea N/A .ATIVAN IV EISENBERG PRN Reason: PYXIS EISENBERG Mometasone Furoate (Asmanex 220 Mcg Mdi *) 2 puff INH BEDTIME [facility]; Protocol Morphine Sulfate (Morphine Inj (Syringe))*) 2 mg IV Q4H PRN Reason: Pain- mild ; work of breathing Oxcarbazepine (Trileptal Tab(*)) 300 mg PO BID [facility] Pantoprazole Sodium (Protonix Tab*) 40 mg PO DAILY [facility] Sertraline HCl (Zoloft*) 50 mg PO DAILY [facility] Sodium Chloride (Sodium Chloride 0.65% Nasal [place]*) 1 spray BOTH NARES Q4H PRN Reason: Dry nares Tamsulosin HCl (Flomax Cap*) 0.4 mg PO DAILY [facility] Tiotropium [place]/Olodaterol (Stiolto Respimat Inh [place] (60 Puff)(Nf)) 2 puff INH QAM [facility] Vital Signs 05/12/19 05/12/19 15:11 15:19 Temperature 97.1 F Pulse Rate 60 Respiratory 18 18 Rate Blood Pressure 104/34 (mmHg) O2 Sat by Pulse 98 Oximetry Oxygen Devices in Use Now: Nasal Cannula Appearance: NAD, laying in bed Ears/Nose/Mouth/Throat: Mucous Membranes Moist Respiratory: Symmetrical Chest Expansion and Respiratory Effort Cardiovascular: - - 1+ bilateral DP Extremities: - - Mild bilateral LE edema. Left elbow with edema, full ROM, tenderness with palpation of the elbow. Skin: - - See skin note below Neurological: - - Alert and Oriented to person and place, confused Nutrition: Taking PO's Result Diagrams: 05/12/19 05:07 05/14/19 06:48 Additional Lab and Data: Above labs were pulled into the note, when the note was edited prior to being signed. See below for labs from the day of consultation. Laboratory Tests 05/10/19 05/11/19 10:55 03:08 WBC 9.3 Hgb 11.1 L Hct 33 L Plt Count 179 Sodium 134 L Potassium 4.3 Chloride 96 L Carbon Dioxide 30 BUN 26 H Creatinine 1.20 H Glucose 348 H Microbiology and Other Data: Microbiology 05/10/19 15:29 Nasal Screen MRSA (PCR) - Final Nasal Mrsa Not Detected Skin Deviation Note - Skin Deviation Findings Left anterior sahni - There is a superficial skin tear, measures 5.3 cm x 0.2 cm x 0.1 cm. There is serosang drainage. Wound base is red granulation tissue. The surrounding skin is intact. Left elbow - There is an area with superficial skin peeling, measures 5 cm x 3 cm x 0.1 cm. There is an area on the distal aspect of the open area the measures 0.5 cm x 0.5 cm x 0.2 cm. There is a small amount of purulent drainage noted, but unable to express further drainage. The surrounding skin is intact. Left foot - There is an ulcer on the ball of the foot at the the 1st toe, measures 1 cm x 1.1 cm x 0.1cm. The area is surrounded by a callous. There is a very small open area with pink granulation tissue. No drainage noted. The surrounding skin is intact. Assessment/Plan: Ms. Berrios is a 68 yo male with PMH significant for sPTSD, CVA, IBS, systolic HF , chronic respiratory failure on supplemental O2, CAD, DM2, peripheral neuropathy, HTN, HLD, A fib, CKD, COPD, GERD, PVD, and JOSIAH; who presented to the hospital with complaints of shortness of breath and confusion. He was found to have an acute on chronic CHF exacerbation and acute on chronic hypoxic respiratory failure. 1. Left elbow infection. This appears to be an infected bursitis and possibly needs to have an I+D. There is no pain with movement of the elbow, but pain with palpation. Low suspicion for a septic joint. Recommend an orthopedics consult. 2. Left foot diabetic ulcer. Recommend applying Silvasorb to the wound, followed by telfa, and rolled gauze. Change the dressing every 3 days. Consider ABIs if not done previously or in the last few months. He follows with vascular surgery in [place] and has a history of multiple vascular procedures. Refer back to the [place] wound center in [place] at discharge, he may require furhter paring of the callous to prevent further ulcer formation. 3. Left sahni skin tear. Recommend applying Optifoam (border foam gauze) and change every 3 days until wound has healed. 4. DM2 with diabetic neuropathy. HgA1C was 11.3 in 05/2018. Consider getting an updated HgA1C. Maintain good glycemic control to allow for wound healing. 5. PVD. He follows with vascular surgery in [place] and has a history of multiple vascular procedures. 6. Diet. Heart Healthy, 1.5 L fluid restriction. 7. Code Status. Fill Code Status. 8. Disposition. Inpatient, disposition per primary medicine team. TIME SPENT: Time for this wound consultation was 25 minutes and 15 minutes was spent with the patient discussing PMH and previous wound care; removing the old dressing; assessing, measuring, and photographing the wounds; and reapplying dressings to the wounds. Wound Problem/Plan Is Patient a Wound Clinic Patient: [facility]ound [facility] Current Treatment: Silvasorb, rolled gauze, and coband Attending: Evelyn Lux
--- NOTE | 2019-05-12 19:21 | PN ---
Progress Note - Progress Note Date of Service: 05/12/19 SOAP: Subjective: 68 yo male, hospitalized for CHF exacerbation. Was noted to have a red elbow, but today was noted to get more red. When asked about things in general, did not complain to me about the elbow, but does state it is sore when asked. He does not relate a history of problems with it, but on exam it can be seen how there is peeled skin about the edges of the bursa and so this has been going on for longer than just since admission. Objective: Mature male, in no distress, laying in the hospital bed. Left elbow: He has dried, peeled skin around the dorsal aspect of the elbow. The area over where the olecranon bursa is red and swollen, with a little fluid palpable. There is a also a small whitish area approx 5 x 3 mm in size. Discuss with him I would like to clean that up a little and he was willing to let me. Area was prepped with betadine and just brushing the whitish area has it come apart. I was then able to open that spot easily and that he tolerated well. I tried to explore in a little and that was not well tolerated. I then compressed the area and no fluid was obtained. That was also not well tolerated. Assessment: Chronic infected left olecranon bursa Plan: He also easily moves the elbow, so this is not a septic joint. There is an opening to the bursa, so if more fluid does accumulate, it should drain. To help, I told him about twice a day warm soapy water soaks and that should help as well. Order was written. Unsure if he would tolerate a more aggressive bedside debridement, but with abx and soaks this should improve.
[2019-05-12] MEDS: Clindamycin CAP* 150 MG PO SCH ×2 (19:25→23:05)
[2019-05-12] MEDS: Mometasone 220 MCG MDI INH SCH (19:49)
[2019-05-12] MEDS: Atorvastatin* 10 MG TAB PO SCH (20:43)
[2019-05-12] MEDS: Morphine INJ* 2 MG/ML 1 ML SYRINGE (TWO MG - NEW SYRINGE VERSION) IV PRN (20:44)
[2019-05-12] MEDS ORDERED: Acetaminophen TAB* 325 MG PO PRN (22:51)
[2019-05-12] MEDS: HYDROcodone/ACETAMIN 5-325 MG* 1 TAB PO PRN (23:03)
[2019-05-13] MEDS: Morphine INJ* 2 MG/ML 1 ML SYRINGE (TWO MG - NEW SYRINGE VERSION) IV PRN ×2 (05:10→22:08)
[2019-05-13] MEDS: Clindamycin CAP* 150 MG PO SCH ×4 (05:12→23:15)
[2019-05-13] MEDS: HYDROcodone/ACETAMIN 5-325 MG* 1 TAB PO PRN ×2 (08:10→20:20)
[2019-05-13] MEDS: Pantoprazole TAB * 40 MG TAB PO SCH (08:15)
[2019-05-13] MEDS: Metoprolol Succinate XL TAB* 100 MG PO SCH ×2 (08:15→20:21)
[2019-05-13] MEDS: amLODIPine TAB* 5 MG PO SCH (08:15)
[2019-05-13] MEDS: Cholecalciferol TAB* 1000 UNITS PO SCH (08:15)
[2019-05-13] MEDS: Apixaban* 5 MG TAB PO SCH ×2 (08:16→20:22)
[2019-05-13] MEDS: Clopidogrel TAB* 75 MG PO SCH (08:16)
[2019-05-13] MEDS: Digoxin TAB* 0.125 MG PO SCH (08:16)
[2019-05-13] MEDS: Sertraline* 50 MG TAB PO SCH (08:16)
[2019-05-13] MEDS: Tamsulosin CAP* 0.4 MG PO SCH (08:17)
[2019-05-13] MEDS: OXcarbazepine TAB(*) 300 MG PO SCH ×2 (08:18→20:20)
[2019-05-13] MEDS: Gabapentin CAP(*) 300 MG PO SCH ×2 (08:18→20:21)
[2019-05-13] MEDS: TIOTROPIUM INH SCH (08:20)
[2019-05-13] MEDS: OLODATEROL INH SCH (08:20)
[2019-05-13] MEDS: Insulin LISPRO* 1 UNITS UNIT SUBCUT SCH ×4 (08:28→20:22)
[2019-05-13 08:43] LABS: BUN/Creatinine Ratio 28.9 (8-20); Calcium 9.8 mg/dL (8.6-10.3); EGFR African American 63.4 (>60); EGFR Non-African American 52.4 (>60); Potassium 4.4 mmol/L (3.5-5.0)
[2019-05-13] MEDS: Insulin GLARGINE(*) 1 UNITS UNIT SUBCUT SCH ×2 (10:44→17:59)
[2019-05-13] MEDS: Furosemide IV* 10 MG/ML 10 ML VIAL (100 MG) IV SCH ×2 (10:45→18:06)
--- NOTE | 2019-05-13 11:13 | CONSULT ---
Consult Consult: Consult for Medical Decision Making Capacity S: Psychiatry is asked to evaluate this 68 year old male for medical decision making capacity. He lives with his at home. His is his power of insurance attorney and was seen with him at his bedside before the encounter. She stated that he is unable to care for himself at home and would like for him to go to the living center at the [facility] for supportive care services. She mentioned that she will be having shoulder surgery and will not be able to take care of him during that time. He is currently refusing rehabilitative support at the community living center at the [facility] in [place], [place]. He is admitted to the Hospitalist service following a fall due to his medical issues. The patient mentioned that he survived [place] and doesnt need anyone else to take care of him. He did not have a complete understanding of the name of his medications and the associated reasons for treatment. Past Psychiatric history: He has a history of PTSD and is currently seeing a psychologist for treatment. 1 past psychiatric hospitalization following his return from [place] O: 68 year old male appears older than stated age , dressed in patient gown, calm, cooperative. Euthymic affect. Linear and goal directed thoughts. No delusions or preoccupations. He denied suicidal ideation, intent or plan. He denied homicidal ideation intent or plan. No perceptual disturbances. Insight and judgment poor. He is aware of the name of his current location, month, day and year. He knows the name of the current president. A/P: Capacity: DX: PTSD His power of insurance attorney also his is requesting that it would be in his best interest to go to subacute rehabilitation. This patient lacks the capacity to make the decision to refuse sub acute rehabilitation. He is unable to appreciate the situation, and its consequences. He is unable to reasonably rationalize the reasons for refusing care. He is also unable to consider alterative treatment options. The consulting Physician was contacted and informed of the following recommendations, and is in agreement with the plan. Thank you for the consult. As capacity is subject to change at any time, feel free to consult Psychiatry again in the event of any changes. Deric Bhakta M.D. #[id number]
--- NOTE | 2019-05-13 12:44 | PN ---
Subjective Date of Service: 05/13/19 Interval History: HOSPITALIST PROGRESS NOTE Patient seen and examined at bedside. Care reviewed and d/w Solis Miller RN. His breathing is a little better today. States last night was the first night during this hospital stay he was able to get some sleep. His left elbow is still bothering him, but pain controlled with hydrocodone. I contacted his [facility] RN (Leona - [phone]) to clarify many confusing statements made by patient and . In summary: - Patient is very non compliant with diet, despite receiving extensive education. Leona describes an episode of patient eating a block of cheese in front of her despite being just educated about importance of low salt diet. - Also non compliant with other measures, including his BiPAP at home. She thinks as he now realizes his demise is near, he started to use the BiPAP over the last month, but not consistently. - As part of the Home care program, patient would be seen by Wound care every Saturday, had RN, psychologist, and MACHINE PACKAGE SEALER visits at home, multiple visits with Podiatry, Cardiology, and Vascular Surgery; and this was not felt to be enough for his care. She describes frequent phone calls from his , to the point she had to talk to her Dust Puller to call the due to the frequency of the calls. Even with all this support, patient has been to the hospital 4 times since March (3 admissions and 1 ED visit). At this time, he has been discharged from the Home care program, as they feel the patient needs a higher level of care. - He is not allergic to insulin. He is supposed to be on Lantus and Aspart. Leona has educated the patient's about "insulin stacking" in the past, but she thinks sometimes the forgets. - He had cough with Lisinopril, so maybe this is the "L" medication the thinks he's allergic too, not Lispro. - Patient and had been told in the past he has end stage disease and should be in Palliative care; he was actually referred for Palliative care as outpatient. Family History: Unchanged from Admission Social History: Unchanged from Admission Past Medical History: Unchanged from Admission Objective Active Medications: Acetaminophen (Tylenol Tab*) 650 mg PO Q4H PRN PRN Reason: FEVER/PAIN Hydrocodone Bitart/Acetaminophen ([place] 5-325 Tab*) 1 tab PO Q3H PRN PRN Reason: PAIN - MODERATE Last Admin: 05/13/19 08:10 Dose: 1 tab Albuterol (Ventolin 2.5 Mg/3 Ml Neb.Jessika*) 2.5 mg INH Q2HR PRN PRN Reason: SHORTNESS OF BREATH Amlodipine Besylate (Norvasc Tab*) 2.5 mg PO DAILY [facility] Last Admin: 05/13/19 08:15 Dose: 2.5 mg Apixaban (Eliquis*) 5 mg PO BID [facility] Last Admin: 05/13/19 08:16 Dose: 5 mg Atorvastatin Calcium (Lipitor*) 10 mg PO BEDTIME [facility] Last Admin: 05/12/19 20:43 Dose: 10 mg Cholecalciferol (Vitamin D Tab*) 2,000 units PO DAILY [facility] Last Admin: 05/13/19 08:15 Dose: 2,000 units Clindamycin HCl (Cleocin Cap*) 300 mg PO Q6HR [facility] Last Admin: 05/13/19 11:17 Dose: 300 mg Clopidogrel Bisulfate (Plavix Tab*) 75 mg PO DAILY [facility] Last Admin: 05/13/19 08:16 Dose: 75 mg Dextrose (D50w Syringe 50 Ml*) 12.5 gm IV PUSH .FOR FS < 60 - SS PRN PRN Reason: FS < 60 Digoxin (Lanoxin Tab*) 0.125 mg PO DAILY [facility] Last Admin: 05/13/19 08:16 Dose: 0.125 mg Furosemide (Lasix Iv*) 60 mg IV 0930,1700 [facility] Last Admin: 05/13/19 10:45 Dose: 60 mg Gabapentin (Neurontin Cap(*)) 600 mg PO BID [facility] Last Admin: 05/13/19 08:18 Dose: 600 mg Insulin Glargine (Lantus(*)) 40 units SUBCUT QAM [facility] Last Admin: 05/13/19 10:44 Dose: 40 unit Insulin Glargine (Lantus(*)) 10 units SUBCUT QPM [facility] Insulin Human Lispro (Humalog*) 0 units SUBCUT ACHS [facility]; Protocol Last Admin: 05/13/19 08:28 Dose: Not Given Loperamide HCl (Imodium Cap*) 2 mg PO Q6H PRN PRN Reason: DIARRHEA Lorazepam (Ativan Inj*) 1 mg IV PUSH Q6H PRN PRN Reason: Anxiety, aggitation Last Admin: 05/12/19 02:01 Dose: 1 mg Metoprolol Succinate (Toprol Xl Tab*) 100 mg PO BID [facility] Last Admin: 05/13/19 08:15 Dose: 100 mg Miscellaneous (Ativan Pyxis [place]) 1 ea N/A .ATIVAN IV [place] PRN PRN Reason: PYXIS H[place]LESTON Mometasone Furoate (Asmanex 220 Mcg Mdi *) 2 puff INH BEDTIME [facility]; Protocol Last Admin: 05/12/19 19:49 Dose: 2 puff Morphine Sulfate (Morphine Inj (Syringe))*) 2 mg IV Q4H PRN PRN Reason: Pain- mild; work of breathing Last Admin: 05/13/19 05:10 Dose: 2 mg Oxcarbazepine (Trileptal Tab(*)) 300 mg PO BID [facility] Last Admin: 05/13/19 08:18 Dose: 300 mg Pantoprazole Sodium (Protonix Tab*) 40 mg PO DAILY [facility] Last Admin: 05/13/19 08:15 Dose: 40 mg Sertraline HCl (Zoloft*) 50 mg PO DAILY [facility] Last Admin: 05/13/19 08:16 Dose: 50 mg Sodium Chloride (Sodium Chloride 0.65% Nasal [place]*) 1 spray BOTH NARES Q4H PRN PRN Reason: Dry nares Tamsulosin HCl (Flomax Cap*) 0.4 mg PO DAILY [facility] Last Admin: 05/13/19 08:17 Dose: 0.4 mg Tiotropium [place]/Olodaterol (Stiolto Respimat Inh [place] (60 Puff)(Nf)) 2 puff INH QAM [facility] Last Admin: 05/13/19 08:20 Dose: 2 puff Vital Signs - 8 hr 05/13/19 05/13/19 05/13/19 05:10 06:23 07:50 Temperature 97.4 F Pulse Rate 62 Respiratory 20 20 16 Rate Blood Pressure 103/53 (mmHg) O2 Sat by Pulse 99 Oximetry 05/13/19 05/13/19 05/13/19 08:00 08:10 08:16 Temperature Pulse Rate 55 Respiratory 16 16 Rate Blood Pressure (mmHg) O2 Sat by Pulse Oximetry 05/13/19 05/13/19 05/13/19 08:18 08:22 11:10 Temperature Pulse Rate 62 Respiratory 16 16 16 Rate Blood Pressure (mmHg) O2 Sat by Pulse 98 Oximetry 05/13/19 11:25 Temperature Pulse Rate Respiratory 16 Rate Blood Pressure (mmHg) O2 Sat by Pulse Oximetry Oxygen Devices in Use Now: Nasal Cannula - 4 liters Appearance: Elderly gentleman, appears older than stated age, lying in bed in NAD. Eyes: No Scleral Icterus Ears/Nose/Mouth/Throat: Mucous Membranes Moist Neck: Trachea Midline Respiratory: Symmetrical Chest Expansion and Respiratory Effort, - - BS+ bilaterally diminished, no added sounds Cardiovascular: RRR - Normal S1 and S2 Abdominal: NL Sounds; No Tenderness; No Distention Skin: - - CDI to left elbow Neurological: Alert and Oriented x 3, NL Muscle Strength and Tone Result Diagrams: 05/12/19 05:07 05/13/19 07:39 Assess/Plan/Problems-Billing Assessment: Mr Berrios is a 68yo M with PMH of CHF with EF 40-45%, CAD, PVD, HTN, HLD, type 2 DM, Afib, COPD on home O2, JOSIAH, GERD, CKD stage 3, who presented to ED with c/o dyspnea and confusion, found to have acute CHF exacerbation. - Patient Problems (1) Acute and chronic respiratory failure with hypoxia Comment: - Secondary to CHF exacerbation. - Initially required Vapotherm, now back on NC 4 liters, close to his baseline, but his baseline is very tenuous. (2) Acute on chronic systolic heart failure Comment: - This is his 3rd admission since March. - As per , compliant with medications and diet, but his home RN reports differently - weight back to 215lbs. - Responded well to metolazone and Furosemide, but creatinine trending up - will continue IV Furosemide and monitor. May be able to change back to PO Furosemide soon. - Echo done in showed no significant changes from 2017. (3) Confusion Comment: - He appears to have some degree of chronic, mild cognitive impairment , now exacerbated in the setting of hypoxia and multiple hospital admissions. - Continue to monitor. (4) Hip pain Comment: - Unclear timing as per patient, but thinks this was after the fall on 04/30. - CT pelvis negative for fracture. (5) Type 2 diabetes mellitus Comment: - Continue Lantus and Lispro SS. There is no documentation of insulin allergy on the [facility] documentation and as per conversation with his home RN. - Patient and educated about importance of compliance with short acting insulin. - Metformin on hold in the setting of lactic acidosis. (6) Olecranon bursitis of left elbow Comment: - Likely secondary to trauma after fall 04/30 - Ortho consult appreciated. - Continue Clindamycin (allergic to PCN). (7) Atrial fibrillation Comment: - Rate controlled. - Continue Apixaban and Metoprolol. (8) Physical deconditioning Comment: - PT/OT consults appreciated. (9) DVT prophylaxis Comment: - Apixaban. (10) Full code status Status and Disposition: Inpatient. At this point, patient is not safe to be discharged home. My recommendation is SNF with Palliative care, with possible transition to Hospice soon. Patient is unhappy about this plan. States "let me go home to !", but at the same time, wants to remain Full code. I believe he has some insight in to how sick he is, but is in denial his demise may be sooner that he expected. He cannot give safe alternative plans that would be viable for him to return home. His also has her own health issues ; will be undergoing surgery over the next 2 weeks and will not be able to take care of him. I believe he does not have the capacity to sign out AMA or to refuse SNF placement at this time. Will request 2nd opinion by Psychiatry for determination of capacity.
--- NOTE | 2019-05-13 17:36 | PN ---
Progress Note - Progress Note Date of Service: 05/13/19 SOAP: Subjective: []Pt seen at bedside while he is eating dinner. He has soaked his elbow x 1 since yesterday, pain is unchanged from yesterday. Objective: []Gen: NAD LUE: Left elbow with erythema and swelling, fluctuant. There is an open area pea sized with no discharge. Erythematous area is very tender to palpation, there is no proximal streaking. He has f/e 5-110 without any pain of the elbow Assessment: []infected left olecranon bursa Plan: []Warm soapy soaks BID cont abx per medicine : on clindamycin Vital Signs Temp 97.6 F 05/13/19 12:00 Pulse 56 05/13/19 12:00 Resp 16 05/13/19 12:00 BP 102/37 05/13/19 12:00 Pulse Ox 100 05/13/19 12:00 Intake & Output 05/12/19 05/13/19 05/13/19 18:59 06:59 18:59 Intake Total 1000 0 600 Output Total 900 1120 500 Balance 100 -1120 100 Weight 215 lb 6.4 oz Intake: Oral 1000 0 600 Output: Urine 900 1120 500 Laboratory Last Values WBC 9.1 10^3/uL (3.5-10.8) 05/12/19 05:07 RBC 3.88 10^6 /uL (4.18-5.48) L 05/12/19 05:07 Hgb 12.0 g/dL (14.0-18.0) L 05/12/19 05:07 Hct 36 % (42-52) L 05/12/19 05:07 MCV 92 fL (80-94) 05/12/19 05:07 MCH 31 pg (27-31) 05/12/19 05:07 MCHC 34 g/dL (31-36) 05/12/19 05:07 RDW 17 % (10-15) H 05/12/19 05:07 Plt Count 191 10^3/uL (150-450) 05/12/19 05:07 MPV 8.9 fL (7.4-10.4) 05/12/19 05:07 Neut % (Auto) 81.1 % 05/12/19 05:07 Lymph % (Auto) 10.1 % 05/12/19 05:07 [place] % (Auto) 6.5 % 05/12/19 05:07 Eos % (Auto) 1.3 % 05/12/19 05:07 Baso % (Auto) 1.0 % 05/12/19 05:07 Absolute Neuts (auto) 7.4 10^3/ul (1.5-7.7) 05/12/19 05:07 Absolute Lymphs (auto) 0.9 10^3/ul (1.0-4.8) L 05/12/19 05:07 Absolute Monos (auto) 0.6 10^3/ul (0-0.8) 05/12/19 05:07 Absolute Eos (auto) 0.1 10^3/ul (0-0.6) 05/12/19 05:07 Absolute Basos (auto) 0.1 10^3/ul (0-0.2) 05/12/19 05:07 Absolute Nucleated RBC 0.0 10^3/ul 05/12/19 05:07 Nucleated RBC % 0.1 05/12/19 05:07 INR (Anticoag Therapy) 1.45 (0.82-1.09) H 05/10/19 10:55 APTT 37.7 seconds (26.0-38.0) 05/10/19 10:55 ABG pH 7.42 (7.35-7.45) 05/10/19 11:25 ABG pCO2 48 mmHg (35-45) H 05/10/19 11:25 ABG pO2 59 mmHg (80-100) L* 05/10/19 11:25 ABG HCO3 28.9 mmol/L (19-31) 05/10/19 11:25 ABG O2 Saturation 90.6 % (94.0-98.0) L 05/10/19 11:25 ABG Base Excess 5.5 mmol/L (-2.0-2.0) H 05/10/19 11:25 Sodium 139 mmol/L (135-145) 05/13/19 07:39 Potassium 4.4 mmol/L (3.5-5.0) 05/13/19 07:39 Chloride 96 mmol/L (101-111) L 05/13/19 07:39 Carbon Dioxide 37 mmol/L (22-32) H 05/13/19 07:39 Anion Gap 6 mmol/L (2-11) 05/13/19 07:39 BUN 39 mg/dL (6-24) H 05/13/19 07:39 Creatinine 1.35 mg/dL (0.67-1.17) H 05/13/19 07:39 Est GFR ( Amer) 63.4 (>60) 05/13/19 07:39 Est GFR (Non-Af Amer) 52.4 (>60) 05/13/19 07:39 BUN/Creatinine Ratio 28.9 (8-20) H 05/13/19 07:39 Glucose 203 mg/dL (70-100) H 05/13/19 07:39 POC Glucose (mg/dL) 236 mg/dL (70-100) H 05/13/19 16:21 Glucose Meter Confirm 402 mg/dL (70-100) H 05/13/19 11:50 Lactic Acid 1.7 mmol/L (0.5-2.0) 05/10/19 16:58 Calcium 9.8 mg/dL (8.6-10.3) 05/13/19 07:39 Phosphorus 4.1 mg/dL (2.5-5.0) 05/12/19 05:07 Magnesium 1.8 mg/dL (1.9-2.7) L 05/12/19 05:07 Total Bilirubin 0.70 mg/dL (0.2-1.0) 05/10/19 10:55 AST 12 U/L (13-39) L 05/10/19 10:55 ALT 12 U/L (7-52) 05/10/19 10:55 Alkaline Phosphatase 94 U/L (34-104) 05/10/19 10:55 Ammonia 32 mcmol/L (16-53) 05/10/19 11:27 Troponin I 0.03 ng/mL (<0.04) 05/10/19 20:35 B-Natriuretic Peptide 1174 pg/mL (<=100) H 05/10/19 11:27 Total Protein 6.6 g/dL (6.4-8.9) 05/10/19 10:55 Albumin 3.8 g/dL (3.2-5.2) 05/10/19 10:55 Globulin 2.8 g/dL (2-4) 05/10/19 10:55 Albumin/Globulin Ratio 1.4 (1-3) 05/10/19 10:55 TSH 4.62 mcIU/mL (0.34-5.60) 05/10/19 10:55 Urine Color Yellow 05/10/19 12:08 Urine Appearance Clear 05/10/19 12:08 Urine pH 5.0 (5-9) 05/10/19 12:08 Ur Specific [place] 1.009 (1.010-1.030) L 05/10/19 12:08 Urine Protein Negative (Negative) 05/10/19 12:08 Urine Ketones Negative (Negative) 05/10/19 12:08 Urine Blood 1+ (Negative) A 05/10/19 12:08 Urine Nitrate Negative (Negative) 05/10/19 12:08 Urine Bilirubin Negative (Negative) 05/10/19 12:08 Urine Urobilinogen Negative (Negative) 05/10/19 12:08 Ur Leukocyte Esterase Negative (Negative) 05/10/19 12:08 Urine WBC (Auto) Absent (Absent) 05/10/19 12:08 Urine RBC (Auto) Trace(0-2/hpf) (Absent) 05/10/19 12:08 Urine Bacteria Absent (Absent) 05/10/19 12:08 Urine Glucose 2+(150 mg/dl) (Negative) A 05/10/19 12:08 Digoxin 0.8 ng/ml (0.8-2.0) 05/10/19 10:55 Salicylates < 2.50 mg/dL (<30) 05/10/19 10:55 Acetaminophen < 15 mcg/mL 05/10/19 10:55 Serum Alcohol < 10 mg/dL (<10) 05/10/19 10:55
[2019-05-13] MEDS: Mometasone 220 MCG MDI INH SCH (19:36)
[2019-05-13] MEDS: Atorvastatin* 10 MG TAB PO SCH (20:21)
[2019-05-14] MEDS: Clindamycin CAP* 150 MG PO SCH ×3 (05:05→16:51)
[2019-05-14] MEDS: HYDROcodone/ACETAMIN 5-325 MG* 1 TAB PO PRN ×2 (05:05→11:15)
[2019-05-14 07:36] LABS: BUN/Creatinine Ratio 30.8 (8-20); EGFR African American 72.6 (>60); Potassium 3.8 mmol/L (3.5-5.0)
[2019-05-14] MEDS: Pantoprazole TAB * 40 MG TAB PO SCH (08:25)
[2019-05-14] MEDS: Apixaban* 5 MG TAB PO SCH ×2 (08:25→20:12)
[2019-05-14] MEDS: Gabapentin CAP(*) 300 MG PO SCH ×2 (08:25→20:08)
[2019-05-14] MEDS: OXcarbazepine TAB(*) 300 MG PO SCH ×2 (08:25→20:13)
[2019-05-14] MEDS: Clopidogrel TAB* 75 MG PO SCH (08:25)
[2019-05-14] MEDS: Metoprolol Succinate XL TAB* 100 MG PO SCH ×2 (08:25→20:12)
[2019-05-14] MEDS: Tamsulosin CAP* 0.4 MG PO SCH (08:25)
[2019-05-14] MEDS: Digoxin TAB* 0.125 MG PO SCH (08:25)
[2019-05-14] MEDS: Sertraline* 50 MG TAB PO SCH (08:25)
[2019-05-14] MEDS: Insulin GLARGINE(*) 1 UNITS UNIT SUBCUT SCH ×2 (08:26→16:51)
[2019-05-14] MEDS: amLODIPine TAB* 5 MG PO SCH (08:26)
[2019-05-14] MEDS: Insulin LISPRO* 1 UNITS UNIT SUBCUT SCH ×4 (08:26→20:53)
[2019-05-14] MEDS: Cholecalciferol TAB* 1000 UNITS PO SCH (08:26)
[2019-05-14] MEDS: TIOTROPIUM INH SCH (08:53)
[2019-05-14] MEDS: OLODATEROL INH SCH (08:53)
[2019-05-14] MEDS: Furosemide IV* 10 MG/ML 10 ML VIAL (100 MG) IV SCH (09:57)
[2019-05-14] MEDS: LORazepam TAB(*) 0.5 MG PO SCH ×2 (13:34→20:08)
--- NOTE | 2019-05-14 14:00 | PN ---
Subjective Date of Service: 05/14/19 Interval History: HOSPITALIST PROGRESS NOTE Patient seen and examined at bedside. Care reviewed and d/w Yulissa Worthy RN. He offers no new complaints. Family History: Unchanged from Admission Social History: Unchanged from Admission Past Medical History: Unchanged from Admission Objective Active Medications: Acetaminophen (Tylenol Tab*) 650 mg PO Q4H PRN PRN Reason: FEVER/PAIN Hydrocodone Bitart/Acetaminophen ([place] 5-325 Tab*) 1 tab PO Q3H PRN PRN Reason: PAIN - MODERATE Last Admin: 05/14/19 11:15 Dose: 1 tab Albuterol (Ventolin 2.5 Mg/3 Ml Neb.Jessika*) 2.5 mg INH Q2HR PRN PRN Reason: SHORTNESS OF BREATH Amlodipine Besylate (Norvasc Tab*) 2.5 mg PO DAILY [facility] Last Admin: 05/14/19 08:26 Dose: 2.5 mg Apixaban (Eliquis*) 5 mg PO BID [facility] Last Admin: 05/14/19 08:25 Dose: 5 mg Atorvastatin Calcium (Lipitor*) 10 mg PO BEDTIME [facility] Last Admin: 05/13/19 20:21 Dose: 10 mg Cholecalciferol (Vitamin D Tab*) 2,000 units PO DAILY [facility] Last Admin: 05/14/19 08:26 Dose: 2,000 units Clindamycin HCl (Cleocin Cap*) 300 mg PO Q6HR [facility] Last Admin: 05/14/19 11:15 Dose: 300 mg Clopidogrel Bisulfate (Plavix Tab*) 75 mg PO DAILY [facility] Last Admin: 05/14/19 08:25 Dose: 75 mg Dextrose (D50w Syringe 50 Ml*) 12.5 gm IV PUSH .FOR FS < 60 - SS PRN PRN Reason: FS < 60 Digoxin (Lanoxin Tab*) 0.125 mg PO DAILY [facility] Last Admin: 05/14/19 08:25 Dose: 0.125 mg Furosemide (Lasix Tab*) 100 mg PO QAM [place] Furosemide (Lasix Tab*) 80 mg PO QPM [facility] Gabapentin (Neurontin Cap(*)) 600 mg PO BID [facility] Last Admin: 05/14/19 08:25 Dose: 600 mg Insulin Glargine (Lantus(*)) 40 units SUBCUT QAM [facility] Last Admin: 05/14/19 08:26 Dose: 40 unit Insulin Glargine (Lantus(*)) 10 units SUBCUT QPM [facility] Last Admin: 05/13/19 17:59 Dose: 10 units Insulin Human Lispro (Humalog*) 0 units SUBCUT ACHS [facility]; Protocol Last Admin: 05/14/19 12:33 Dose: 3 units Loperamide HCl (Imodium Cap*) 2 mg PO Q6H PRN PRN Reason: DIARRHEA Lorazepam (Ativan Inj*) 1 mg IV PUSH Q6H PRN PRN Reason: Anxiety, aggitation Last Admin: 05/12/19 02:01 Dose: 1 mg Lorazepam (Ativan Tab(*)) 0.5 mg PO TID [facility] Last Admin: 05/14/19 13:34 Dose: 0.5 mg Metoprolol Succinate (Toprol Xl Tab*) 100 mg PO BID [facility] Last Admin: 05/14/19 08:25 Dose: 100 mg Miscellaneous (Ativan Pyxis [place]) 1 ea N/A .ATIVAN IV [place]UD[place]ON PRN PRN Reason: PYXIS H[place] Mometasone Furoate (Asmanex 220 Mcg Mdi *) 2 puff INH BEDTIME [facility]; Protocol Last Admin: 05/13/19 19:36 Dose: 2 puff Morphine Sulfate (Morphine Inj (Syringe))*) 2 mg IV Q4H PRN PRN Reason: Pain- mild; work of breathing Last Admin: 05/13/19 22:08 Dose: 2 mg Oxcarbazepine (Trileptal Tab(*)) 300 mg PO BID [facility] Last Admin: 05/14/19 08:25 Dose: 300 mg Pantoprazole Sodium (Protonix Tab*) 40 mg PO DAILY [facility] Last Admin: 05/14/19 08:25 Dose: 40 mg Sertraline HCl (Zoloft*) 50 mg PO DAILY [facility] Last Admin: 05/14/19 08:25 Dose: 50 mg Sodium Chloride (Sodium Chloride 0.65% Nasal [place]*) 1 spray BOTH NARES Q4H PRN PRN Reason: Dry nares Tamsulosin HCl (Flomax Cap*) 0.4 mg PO DAILY [facility] Last Admin: 05/14/19 08:25 Dose: 0.4 mg Tiotropium [place]/Olodaterol (Stiolto Respimat Inh [place] (60 Puff)(Nf)) 2 puff INH QAM [facility] Last Admin: 05/14/19 08:53 Dose: 2 puff Vital Signs - 8 hr 05/14/19 05/14/19 05/14/19 08:00 08:25 08:49 Temperature 97.4 F Pulse Rate 70 70 Respiratory 18 18 18 Rate Blood Pressure 116/44 (mmHg) O2 Sat by Pulse 99 Oximetry 05/14/19 05/14/19 05/14/19 08:56 09:15 11:15 Temperature Pulse Rate 70 Respiratory 16 16 18 Rate Blood Pressure (mmHg) O2 Sat by Pulse 99 Oximetry 05/14/19 05/14/19 11:43 13:34 Temperature 97.1 F Pulse Rate 45 Respiratory 18 18 Rate Blood Pressure 103/43 (mmHg) O2 Sat by Pulse 100 Oximetry Oxygen Devices in Use Now: Nasal Cannula Appearance: Elderly gentleman sitting up in bed in NAD Eyes: No Scleral Icterus Ears/Nose/Mouth/Throat: Mucous Membranes Moist Neck: Trachea Midline Respiratory: Symmetrical Chest Expansion and Respiratory Effort, - - BS+ bilaterally diminished Cardiovascular: RRR - Normal S1 and S2 Abdominal: NL Sounds; No Tenderness; No Distention Extremities: - - CDI to left elbow Neurological: Alert and Oriented x 3, NL Muscle Strength and Tone Result Diagrams: 05/12/19 05:07 05/14/19 06:48 Assess/Plan/Problems-Billing Assessment: Mr Berrios is a 68yo M with PMH of CHF with EF 40-45%, CAD, PVD, HTN, HLD, type 2 DM, Afib, COPD on home O2, JOSIAH, GERD, CKD stage 3, who presented to ED with c/o dyspnea and confusion, found to have acute CHF exacerbation. - Patient Problems (1) Acute and chronic respiratory failure with hypoxia Comment: - Secondary to CHF exacerbation. - Initially required Vapotherm, now back on NC 4 liters, close to his baseline, but his baseline is very tenuous. (2) Acute on chronic systolic heart failure Comment: - This is his 3rd admission since March. - As per , compliant with medications and diet, but his home RN reports differently - weight down to 211lbs. - Responded well to metolazone and Furosemide, but creatinine trending up - will continue IV Furosemide and monitor. Will resume his usual PO Furosemide dose. - Echo done in showed no significant changes from 2017. (3) Confusion Comment: - He appears to have some degree of chronic, mild cognitive impairment , now exacerbated in the setting of hypoxia and multiple hospital admissions. - Continue to monitor. (4) Hip pain Comment: - Unclear timing as per patient, but thinks this was after the fall on 04/30. - CT pelvis negative for fracture. (5) Type 2 diabetes mellitus Comment: - Continue Lantus and Lispro SS. There is no documentation of insulin [facility] the [facility] and as per conversation with his home RN. - Patient and educated about importance of compliance with short acting insulin. - Metformin on hold in the setting of lactic acidosis. (6) Olecranon bursitis of left elbow Comment: - Likely secondary to trauma after fall 04/30 - Ortho consult appreciated. - Continue Clindamycin (allergic to PCN). (7) Atrial fibrillation Comment: - Rate controlled. - Continue Apixaban and Metoprolol. (8) Physical deconditioning Comment: - PT/OT consults appreciated. (9) DVT prophylaxis Comment: - Apixaban. (10) Full code status Status and Disposition: Inpatient. updated at bedside. Psych consult appreciated - has no capacity to sign out AMA or refuse SNF. Plan to d/c to [place] [facility] with Palliative care.
--- NOTE | 2019-05-14 14:35 | PN ---
Progress Note - Progress Note Date of Service: 05/14/19 SOAP: Subjective: []Pt seen and examined at bedside. He feels well without fever or chills, elbow is less painful and reported to be less red. afebrile past 24 hr Objective: []Gen: NAD LUE: Left elbow with decrease in both erythema and swelling, only mildly pink over the olecranon. There is an open area pea sized with no discharge. Erythematous area is mildly tender, less so than yesterday. He has f/e 5-110 without any pain of the elbow Assessment: []infected left olecranon bursa Plan: []Warm soapy soaks BID cont abx per medicine : on clindamycin Vital Signs Temp 97.1 F 05/14/19 11:43 Pulse 45 05/14/19 11:43 Resp 18 05/14/19 13:56 BP 103/43 05/14/19 11:43 Pulse Ox 100 05/14/19 11:43 Intake & Output 05/13/19 05/14/19 05/14/19 18:59 06:59 18:59 Intake Total 600 1025 Output Total 500 650 Balance 100 375 Weight 211 lb 1.6 oz Intake: Oral 600 1025 Output: Urine 500 650 Laboratory Last Values WBC 9.1 10^3/uL (3.5-10.8) 05/12/19 05:07 RBC 3.88 10^6 /uL (4.18-5.48) L 05/12/19 05:07 Hgb 12.0 g/dL (14.0-18.0) L 05/12/19 05:07 Hct 36 % (42-52) L 05/12/19 05:07 MCV 92 fL (80-94) 05/12/19 05:07 MCH 31 pg (27-31) 05/12/19 05:07 MCHC 34 g/dL (31-36) 05/12/19 05:07 RDW 17 % (10-15) H 05/12/19 05:07 Plt Count 191 10^3/uL (150-450) 05/12/19 05:07 MPV 8.9 fL (7.4-10.4) 05/12/19 05:07 Neut % (Auto) 81.1 % 05/12/19 05:07 Lymph % (Auto) 10.1 % 05/12/19 05:07 [place] % (Auto) 6.5 % 05/12/19 05:07 Eos % (Auto) 1.3 % 05/12/19 05:07 Baso % (Auto) 1.0 % 05/12/19 05:07 Absolute Neuts (auto) 7.4 10^3/ul (1.5-7.7) 05/12/19 05:07 Absolute Lymphs (auto) 0.9 10^3/ul (1.0-4.8) L 05/12/19 05:07 Absolute Monos (auto) 0.6 10^3/ul (0-0.8) 05/12/19 05:07 Absolute Eos (auto) 0.1 10^3/ul (0-0.6) 05/12/19 05:07 Absolute Basos (auto) 0.1 10^3/ul (0-0.2) 05/12/19 05:07 Absolute Nucleated RBC 0.0 10^3/ul 05/12/19 05:07 Nucleated RBC % 0.1 05/12/19 05:07 INR (Anticoag Therapy) 1.45 (0.82-1.09) H 05/10/19 10:55 APTT 37.7 seconds (26.0-38.0) 05/10/19 10:55 ABG pH 7.42 (7.35-7.45) 05/10/19 11:25 ABG pCO2 48 mmHg (35-45) H 05/10/19 11:25 ABG pO2 59 mmHg (80-100) L* 05/10/19 11:25 ABG HCO3 28.9 mmol/L (19-31) 05/10/19 11:25 ABG O2 Saturation 90.6 % (94.0-98.0) L 05/10/19 11:25 ABG Base Excess 5.5 mmol/L (-2.0-2.0) H 05/10/19 11:25 Sodium 139 mmol/L (135-145) 05/14/19 06:48 Potassium 3.8 mmol/L (3.5-5.0) 05/14/19 06:48 Chloride 99 mmol/L (101-111) L 05/14/19 06:48 Carbon Dioxide 34 mmol/L (22-32) H 05/14/19 06:48 Anion Gap 6 mmol/L (2-11) 05/14/19 06:48 BUN 37 mg/dL (6-24) H 05/14/19 06:48 Creatinine 1.20 mg/dL (0.67-1.17) H 05/14/19 06:48 Est GFR ( Amer) 72.6 (>60) 05/14/19 06:48 Est GFR (Non-Af Amer) 60.0 (>60) 05/14/19 06:48 BUN/Creatinine Ratio 30.8 (8-20) H 05/14/19 06:48 Glucose 195 mg/dL (70-100) H 05/14/19 06:48 POC Glucose (mg/dL) 190 mg/dL (70-100) H 05/14/19 11:18 Glucose Meter Confirm 402 mg/dL (70-100) H 05/13/19 11:50 Lactic Acid 1.7 mmol/L (0.5-2.0) 05/10/19 16:58 Calcium 9.0 mg/dL (8.6-10.3) 05/14/19 06:48 Phosphorus 4.1 mg/dL (2.5-5.0) 05/12/19 05:07 Magnesium 1.8 mg/dL (1.9-2.7) L 05/12/19 05:07 Total Bilirubin 0.70 mg/dL (0.2-1.0) 05/10/19 10:55 AST 12 U/L (13-39) L 05/10/19 10:55 ALT 12 U/L (7-52) 05/10/19 10:55 Alkaline Phosphatase 94 U/L (34-104) 05/10/19 10:55 Ammonia 32 mcmol/L (16-53) 05/10/19 11:27 Troponin I 0.03 ng/mL (<0.04) 05/10/19 20:35 B-Natriuretic Peptide 1174 pg/mL (<=100) H 05/10/19 11:27 Total Protein 6.6 g/dL (6.4-8.9) 05/10/19 10:55 Albumin 3.8 g/dL (3.2-5.2) 05/10/19 10:55 Globulin 2.8 g/dL (2-4) 05/10/19 10:55 Albumin/Globulin Ratio 1.4 (1-3) 05/10/19 10:55 TSH 4.62 mcIU/mL (0.34-5.60) 05/10/19 10:55 Urine Color Yellow 05/10/19 12:08 Urine Appearance Clear 05/10/19 12:08 Urine pH 5.0 (5-9) 05/10/19 12:08 Ur Specific [place] 1.009 (1.010-1.030) L 05/10/19 12:08 Urine Protein Negative (Negative) 05/10/19 12:08 Urine Ketones Negative (Negative) 05/10/19 12:08 Urine Blood 1+ (Negative) A 05/10/19 12:08 Urine Nitrate Negative (Negative) 05/10/19 12:08 Urine Bilirubin Negative (Negative) 05/10/19 12:08 Urine Urobilinogen Negative (Negative) 05/10/19 12:08 Ur Leukocyte Esterase Negative (Negative) 05/10/19 12:08 Urine WBC (Auto) Absent (Absent) 05/10/19 12:08 Urine RBC (Auto) Trace(0-2/hpf) (Absent) 05/10/19 12:08 Urine Bacteria Absent (Absent) 05/10/19 12:08 Urine Glucose 2+(150 mg/dl) (Negative) A 05/10/19 12:08 Digoxin 0.8 ng/ml (0.8-2.0) 05/10/19 10:55 Salicylates < 2.50 mg/dL (<30) 05/10/19 10:55 Acetaminophen < 15 mcg/mL 05/10/19 10:55 Serum Alcohol < 10 mg/dL (<10) 05/10/19 10:55
[2019-05-14] MEDS: Furosemide TAB* 40 MG PO SCH (16:50)
[2019-05-14] MEDS: Mometasone 220 MCG MDI INH SCH (19:42)
[2019-05-14] MEDS: Atorvastatin* 10 MG TAB PO SCH (20:12)
[2019-05-15] MEDS: Clindamycin CAP* 150 MG PO SCH ×4 (01:11→17:00)
[2019-05-15 07:43] LABS: BUN/Creatinine Ratio 28.8 (8-20); Calcium 9.7 mg/dL (8.6-10.3); EGFR African American 65.1 (>60); EGFR Non-African American 53.8 (>60); Potassium 4.3 mmol/L (3.5-5.0)
[2019-05-15] MEDS: OXcarbazepine TAB(*) 300 MG PO SCH ×2 (09:20→21:18)
[2019-05-15] MEDS: amLODIPine TAB* 5 MG PO SCH (09:20)
[2019-05-15] MEDS: Pantoprazole TAB * 40 MG TAB PO SCH (09:20)
[2019-05-15] MEDS: Metoprolol Succinate XL TAB* 100 MG PO SCH ×2 (09:21→21:19)
[2019-05-15] MEDS: LORazepam TAB(*) 0.5 MG PO SCH ×3 (09:21→21:18)
[2019-05-15] MEDS: Sertraline* 50 MG TAB PO SCH (09:21)
[2019-05-15] MEDS: Furosemide TAB* 40 MG PO SCH ×2 (09:21→17:00)
[2019-05-15] MEDS: Gabapentin CAP(*) 300 MG PO SCH ×2 (09:21→21:18)
[2019-05-15] MEDS: Clopidogrel TAB* 75 MG PO SCH (09:21)
[2019-05-15] MEDS: Apixaban* 5 MG TAB PO SCH ×2 (09:21→21:19)
[2019-05-15] MEDS: Cholecalciferol TAB* 1000 UNITS PO SCH (09:22)
[2019-05-15] MEDS: Insulin LISPRO* 1 UNITS UNIT SUBCUT SCH ×4 (09:22→21:19)
[2019-05-15] MEDS: Tamsulosin CAP* 0.4 MG PO SCH (09:22)
[2019-05-15] MEDS: Insulin GLARGINE(*) 1 UNITS UNIT SUBCUT SCH (09:22)
[2019-05-15] MEDS: Digoxin TAB* 0.125 MG PO SCH (09:23)
--- NOTE | 2019-05-15 10:09 | PN ---
Subjective Date of Service: 05/15/19 Interval History: No new c/o. Anxious due to delay in getting [facility] (I then told him he has been approved for Friday 05/18). Family History: Unchanged from Admission Social History: Unchanged from Admission Past Medical History: Unchanged from Admission Objective Active Medications: Acetaminophen (Tylenol Tab*) 650 mg PO Q4H PRN PRN Reason: FEVER/PAIN Hydrocodone Bitart/Acetaminophen ([place] 5-325 Tab*) 1 tab PO Q3H PRN PRN Reason: PAIN - MODERATE Last Admin: 05/14/19 11:15 Dose: 1 tab Albuterol (Ventolin 2.5 Mg/3 Ml Neb.Jessika*) 2.5 mg INH Q2HR PRN PRN Reason: SHORTNESS OF BREATH Amlodipine Besylate (Norvasc Tab*) 2.5 mg PO DAILY [facility] Last Admin: 05/15/19 09:20 Dose: 2.5 mg Apixaban (Eliquis*) 5 mg PO BID [facility] Last Admin: 05/15/19 09:21 Dose: 5 mg Atorvastatin Calcium (Lipitor*) 10 mg PO BEDTIME [facility] Last Admin: 05/14/19 20:12 Dose: 10 mg Cholecalciferol (Vitamin D Tab*) 2,000 units PO DAILY [facility] Last Admin: 05/15/19 09:22 Dose: 2,000 units Clindamycin HCl (Cleocin Cap*) 300 mg PO Q6HR [facility] Last Admin: 05/15/19 05:04 Dose: 300 mg Clopidogrel Bisulfate (Plavix Tab*) 75 mg PO DAILY [facility] Last Admin: 05/15/19 09:21 Dose: 75 mg Dextrose (D50w Syringe 50 Ml*) 12.5 gm IV PUSH .FOR FS < 60 - SS PRN PRN Reason: FS < 60 Digoxin (Lanoxin Tab*) 0.125 mg PO DAILY [facility] Last Admin: 05/15/19 09:23 Dose: 0.125 mg Furosemide (Lasix Tab*) 100 mg PO QAM [facility] Last Admin: 05/15/19 09:21 Dose: 100 mg Furosemide (Lasix Tab*) 80 mg PO QPM [facility] Last Admin: 05/14/19 16:50 Dose: 80 mg Gabapentin (Neurontin Cap(*)) 600 mg PO BID [facility] Last Admin: 05/15/19 09:21 Dose: 600 mg Insulin Glargine (Lantus(*)) 42 units SUBCUT QAM [facility] Insulin Glargine (Lantus(*)) 12 units SUBCUT QPM [facility] Insulin Human Lispro (Humalog*) 0 units SUBCUT ACHS [facility]; Protocol Last Admin: 05/15/19 09:22 Dose: 3 units Loperamide HCl (Imodium Cap*) 2 mg PO Q6H PRN PRN Reason: DIARRHEA Lorazepam (Ativan Inj*) 1 mg IV PUSH Q6H PRN PRN Reason: Anxiety, aggitation Last Admin: 05/12/19 02:01 Dose: 1 mg Lorazepam (Ativan Tab(*)) 0.5 mg PO TID [facility] Last Admin: 05/15/19 09:21 Dose: 0.5 mg Metoprolol Succinate (Toprol Xl Tab*) 100 mg PO BID [facility] Last Admin: 05/15/19 09:21 Dose: 100 mg Miscellaneous (Ativan Pyxis [place]) 1 ea N/A .ATIVAN IV [place] PRN PRN Reason: PYXIS [place] Mometasone Furoate (Asmanex 220 Mcg Mdi *) 2 puff INH BEDTIME [facility]; Protocol Last Admin: 05/14/19 19:42 Dose: 2 puff Morphine Sulfate (Morphine Inj (Syringe))*) 2 mg IV Q4H PRN PRN Reason: Pain- mild; work of breathing Last Admin: 05/13/19 22:08 Dose: 2 mg Nicotine (Nicotine Patch 7 Mg/24 Hr*) 1 patch TRANSDERM DAILY [facility] Oxcarbazepine (Trileptal Tab(*)) 300 mg PO BID [facility] Last Admin: 05/15/19 09:20 Dose: 300 mg Pantoprazole Sodium (Protonix Tab*) 40 mg PO DAILY [facility] Last Admin: 05/15/19 09:20 Dose: 40 mg Sertraline HCl (Zoloft*) 50 mg PO DAILY [facility] Last Admin: 05/15/19 09:21 Dose: 50 mg Sodium Chloride (Sodium Chloride 0.65% Nasal [place]*) 1 spray BOTH NARES Q4H PRN PRN Reason: Dry nares Tamsulosin HCl (Flomax Cap*) 0.4 mg PO DAILY [facility] Last Admin: 05/15/19 09:22 Dose: 0.4 mg Tiotropium [place]/Olodaterol (Stiolto Respimat Inh Jay (60 Puff)(Nf)) 2 puff INH QAM [facility] Last Admin: 05/14/19 08:53 Dose: 2 puff Vital Signs - 8 hr 05/15/19 05/15/19 05/15/19 05:31 07:30 09:21 Temperature 97.8 F Pulse Rate 61 60 Respiratory 22 19 18 Rate Blood Pressure 91/51 131/57 (mmHg) O2 Sat by Pulse 99 100 Oximetry 05/15/19 09:23 Temperature Pulse Rate 60 Respiratory Rate Blood Pressure (mmHg) O2 Sat by Pulse Oximetry Oxygen Devices in Use Now: Nasal Cannula Appearance: Alert, partly up in bed. In fair spirits. Looks comfortable. Neck: NL Appearance and Movements; NL JVP, No Thyroid Enlargement, Masses Respiratory: Symmetrical Chest Expansion and Respiratory Effort, Clear to Auscultation, Clear to Percussion Cardiovascular: NL Sounds; No Murmurs; No JVD, RRR, No Edema, - Extremities: No Edema, No Clubbing, Cyanosis, - Skin: No Nodules or Sclerosis, - - Bandage on L lower leg, mild excoriation/ abrasion R sahni. CDI L elbow, some erythema and yellow exudated visible, no change per . Neurological: Alert and Oriented x 3, NL Sensation Result Diagrams: 05/12/19 05:07 05/15/19 07:03 Additional Lab and Data: Above labs were pulled into the note, when the note was edited prior to being signed. See below for labs from the day of consultation. Laboratory Tests 05/10/19 05/11/19 10:55 03:08 WBC 9.3 Hgb 11.1 L Hct 33 L Plt Count 179 Sodium 134 L Potassium 4.3 Chloride 96 L Carbon Dioxide 30 BUN 26 H Creatinine 1.20 H Glucose 348 H Microbiology and Other Data: Microbiology 05/10/19 15:29 Nasal Screen MRSA (PCR) - Final Nasal Mrsa Not Detected Assess/Plan/Problems-Billing Assessment: Mr Berrios is a 68yo M with PMH of CHF with EF 40-45%, CAD, PVD, HTN, HLD, type 2 DM, Afib, COPD on home O2, JOSIAH, GERD, CKD stage 3, who presented to ED with c/o dyspnea and confusion, found to have acute CHF exacerbation. - Patient Problems (1) Confusion Current Visit: Yes Status: Acute Code(s): R41.0 - DISORIENTATION, UNSPECIFIED SNOMED Code(s): 967130833 Comment: - He appears to have some degree of chronic, mild cognitive impairment, now exacerbated in the setting of hypoxia and multiple hospital admissions. Per psychiatrist, patient lacks capacity to refuse STR. (2) Acute on chronic systolic heart failure Current Visit: Yes Status: Acute Code(s): I50.23 - ACUTE ON CHRONIC SYSTOLIC (CONGESTIVE) HEART FAILURE SNOMED Code(s): 109189503 Comment: - This is his 3rd admission since March. - As per , compliant with medications and diet, but his home RN reports differently - weight down to 211lbs. Continue PO Furosemide bid. - Echo done in showed no significant changes from 2017. (3) Acute and chronic respiratory failure with hypoxia Current Visit: Yes Status: Acute Code(s): J96.21 - ACUTE AND CHRONIC RESPIRATORY FAILURE WITH HYPOXIA SNOMED Code(s): 58039558 Comment: - Secondary to CHF exacerbation. - Initially required Vapotherm, now back on NC 4 liters, close to his baseline, but his baseline is very tenuous. (4) Olecranon bursitis of left elbow Current Visit: Yes Status: Acute Code(s): M70.22 - OLECRANON BURSITIS, LEFT ELBOW SNOMED Code(s): 117933341956139 Comment: - Likely secondary to trauma after fall 04/30 - Ortho consult appreciated. - Continue Clindamycin (allergic to PCN). (5) Atrial fibrillation with RVR Current Visit: No Status: Resolved Priority: High Onset Date: 11/05/14 Code(s): I48.91 - UNSPECIFIED ATRIAL FIBRILLATION SNOMED Code(s): 134745899200208 (6) Atrial fibrillation Current Visit: Yes Status: Chronic Priority: Medium Code(s): I48.91 - UNSPECIFIED ATRIAL FIBRILLATION SNOMED Code(s): 18582485 Comment: - Rate controlled. - Continue Apixaban and Metoprolol. (7) Type 2 diabetes mellitus Current Visit: Yes Status: Chronic Priority: Medium Comment: Increase Lantus to 42/12 units start 05/15 PM. - Metformin on hold in the setting of lactic acidosis. (8) CKD (chronic kidney disease) stage 3, GFR 30-59 ml/min Current Visit: No Status: Chronic Priority: Medium Code(s): N18.3 - CHRONIC KIDNEY DISEASE, STAGE 3 (MODERATE) SNOMED Code(s): 695138725 Comment: Est GFR 54.8 05/15/19. Status and Disposition: Inpatient. updated at bedside. Psych consult appreciated - has no capacity to sign out AMA or refuse SNF. Plan to d/c to [place] SNF with Palliative care.
[2019-05-15] MEDS: TIOTROPIUM INH SCH (10:50)
[2019-05-15] MEDS: OLODATEROL INH SCH (10:50)
[2019-05-15] MEDS ORDERED: Insulin GLARGINE(*) 1 UNITS UNIT SUBCUT SCH (18:00)
[2019-05-15] MEDS: Mometasone 220 MCG MDI INH SCH (19:27)
[2019-05-15] MEDS: HYDROcodone/ACETAMIN 5-325 MG* 1 TAB PO PRN (21:19)
[2019-05-15] MEDS: Atorvastatin* 10 MG TAB PO SCH (21:19)
[2019-05-16] MEDS: Clindamycin CAP* 150 MG PO SCH ×5 (00:19→23:21)
[2019-05-16] MEDS: TIOTROPIUM INH SCH (08:40)
[2019-05-16] MEDS: OLODATEROL INH SCH (08:40)
[2019-05-16] MEDS ORDERED: Insulin GLARGINE(*) 1 UNITS UNIT SUBCUT SCH (09:00)
[2019-05-16] MEDS: Sertraline* 50 MG TAB PO SCH (09:15)
[2019-05-16] MEDS: OXcarbazepine TAB(*) 300 MG PO SCH ×2 (09:15→20:31)
[2019-05-16] MEDS: amLODIPine TAB* 5 MG PO SCH (09:15)
[2019-05-16] MEDS: LORazepam TAB(*) 0.5 MG PO SCH ×3 (09:15→20:31)
[2019-05-16] MEDS: Apixaban* 5 MG TAB PO SCH ×2 (09:15→20:31)
[2019-05-16] MEDS: Tamsulosin CAP* 0.4 MG PO SCH (09:15)
[2019-05-16] MEDS: Metoprolol Succinate XL TAB* 100 MG PO SCH ×2 (09:15→20:32)
[2019-05-16] MEDS: Gabapentin CAP(*) 300 MG PO SCH ×2 (09:16→20:31)
[2019-05-16] MEDS: Clopidogrel TAB* 75 MG PO SCH (09:16)
[2019-05-16] MEDS: Furosemide TAB* 40 MG PO SCH ×2 (09:16→17:02)
[2019-05-16] MEDS: Digoxin TAB* 0.125 MG PO SCH (09:16)
[2019-05-16] MEDS: Pantoprazole TAB * 40 MG TAB PO SCH (09:17)
[2019-05-16] MEDS: Insulin LISPRO* 1 UNITS UNIT SUBCUT SCH ×4 (09:17→20:30)
[2019-05-16] MEDS: Cholecalciferol TAB* 1000 UNITS PO SCH (09:17)
[2019-05-16] MEDS: Nicotine PATCH 7 MG/24 HR* PATCH TRANSDERM SCH (09:19)
--- NOTE | 2019-05-16 15:37 | PN ---
Subjective Date of Service: 05/16/19 Interval History: No new c/o. Family History: Unchanged from Admission Social History: Unchanged from Admission Past Medical History: Unchanged from Admission Objective Active Medications: Acetaminophen (Tylenol Tab*) 650 mg PO Q4H PRN PRN Reason: FEVER/PAIN Hydrocodone Bitart/Acetaminophen ([place] 5-325 Tab*) 1 tab PO Q3H PRN PRN Reason: PAIN - MODERATE Last Admin: 05/15/19 21:19 Dose: 1 tab Albuterol (Ventolin 2.5 Mg/3 Ml Neb.Jessika*) 2.5 mg INH Q2HR PRN PRN Reason: SHORTNESS OF BREATH Amlodipine Besylate (Norvasc Tab*) 2.5 mg PO DAILY [facility] Last Admin: 05/16/19 09:15 Dose: 2.5 mg Apixaban (Eliquis*) 5 mg PO BID [facility] Last Admin: 05/16/19 09:15 Dose: 5 mg Atorvastatin Calcium (Lipitor*) 10 mg PO BEDTIME [facility] Last Admin: 05/15/19 21:19 Dose: 10 mg Cholecalciferol (Vitamin D Tab*) 2,000 units PO DAILY [facility] Last Admin: 05/16/19 09:17 Dose: 2,000 units Clindamycin HCl (Cleocin Cap*) 300 mg PO Q6HR [facility] Last Admin: 05/16/19 12:13 Dose: 300 mg Clopidogrel Bisulfate (Plavix Tab*) 75 mg PO DAILY [facility] Last Admin: 05/16/19 09:16 Dose: 75 mg Dextrose (D50w Syringe 50 Ml*) 12.5 gm IV PUSH .FOR FS < 60 - SS PRN PRN Reason: FS < 60 Digoxin (Lanoxin Tab*) 0.125 mg PO DAILY [facility] Last Admin: 05/16/19 09:16 Dose: 0.125 mg Furosemide (Lasix Tab*) 100 mg PO QAM [facility] Last Admin: 05/16/19 09:16 Dose: 100 mg Furosemide (Lasix Tab*) 80 mg PO QPM [facility] Last Admin: 05/15/19 17:00 Dose: 80 mg Gabapentin (Neurontin Cap(*)) 600 mg PO BID [facility] Last Admin: 05/16/19 09:16 Dose: 600 mg Insulin Glargine (Lantus(*)) 44 units SUBCUT QAM [facility] Insulin Glargine (Lantus(*)) 14 units SUBCUT QPM [facility] Insulin Human Lispro (Humalog*) 0 units SUBCUT ACHS [facility]; Protocol Last Admin: 05/16/19 12:12 Dose: 15 units Loperamide HCl (Imodium Cap*) 2 mg PO Q6H PRN PRN Reason: DIARRHEA Lorazepam (Ativan Inj*) 1 mg IV PUSH Q6H PRN PRN Reason: Anxiety, aggitation Last Admin: 05/12/19 02:01 Dose: 1 mg Lorazepam (Ativan Tab(*)) 0.5 mg PO TID [facility] Last Admin: 05/16/19 15:17 Dose: 0.5 mg Metoprolol Succinate (Toprol Xl Tab*) 100 mg PO BID [facility] Last Admin: 05/16/19 09:15 Dose: 100 mg Miscellaneous (Ativan Pyxis [place]) 1 ea N/A .ATIVAN IV [place] PRN PRN Reason: PYXIS [place] Mometasone Furoate (Asmanex 220 Mcg Mdi *) 2 puff INH BEDTIME [facility]; Protocol Last Admin: 05/15/19 19:27 Dose: 2 puff Morphine Sulfate (Morphine Inj (Syringe))*) 2 mg IV Q4H PRN PRN Reason: Pain- mild; work of breathing Last Admin: 05/13/19 22:08 Dose: 2 mg Nicotine (Nicotine Patch 7 Mg/24 Hr*) 1 patch TRANSDERM DAILY [facility] Last Admin: 05/16/19 09:19 Dose: 1 patch Oxcarbazepine (Trileptal Tab(*)) 300 mg PO BID [facility] Last Admin: 05/16/19 09:15 Dose: 300 mg Pantoprazole Sodium (Protonix Tab*) 40 mg PO DAILY [facility] Last Admin: 05/16/19 09:17 Dose: 40 mg Sertraline HCl (Zoloft*) 50 mg PO DAILY [facility] Last Admin: 05/16/19 09:15 Dose: 50 mg Sodium Chloride (Sodium Chloride 0.65% Nasal [place]*) 1 spray BOTH NARES Q4H PRN PRN Reason: Dry nares Tamsulosin HCl (Flomax Cap*) 0.4 mg PO DAILY [facility] Last Admin: 05/16/19 09:15 Dose: 0.4 mg Tiotropium [place]/Olodaterol (Stiolto Respimat Inh [place] (60 Puff)(Nf)) 2 puff INH QAM [facility] Last Admin: 05/16/19 08:40 Dose: 2 puff Vital Signs - 8 hr 05/16/19 05/16/19 05/16/19 08:00 08:46 09:15 Temperature 98.0 F Pulse Rate 62 56 Respiratory 20 16 16 Rate Blood Pressure 108/51 (mmHg) O2 Sat by Pulse 99 100 Oximetry 05/16/19 05/16/19 05/16/19 09:16 12:45 15:17 Temperature Pulse Rate 62 Respiratory 18 16 16 Rate Blood Pressure (mmHg) O2 Sat by Pulse Oximetry Oxygen Devices in Use Now: Nasal Cannula Appearance: Resting in bed on L side. Looks comfortable. Eyes: No Scleral Icterus Extremities: No Edema, No Clubbing, Cyanosis Skin: No Nodules or Sclerosis, - - L elbow in elastic wrap Result Diagrams: 05/12/19 05:07 05/15/19 07:03 Additional Lab and Data: Above labs were pulled into the note, when the note was edited prior to being signed. See below for labs from the day of consultation. Laboratory Tests 05/10/19 05/11/19 10:55 03:08 WBC 9.3 Hgb 11.1 L Hct 33 L Plt Count 179 Sodium 134 L Potassium 4.3 Chloride 96 L Carbon Dioxide 30 BUN 26 H Creatinine 1.20 H Glucose 348 H Microbiology and Other Data: Microbiology 05/10/19 15:29 Nasal Screen MRSA (PCR) - Final Nasal Mrsa Not Detected Assess/Plan/Problems-Billing Assessment: Mr Berrios is a 68yo M with PMH of CHF with EF 40-45%, CAD, PVD, HTN, HLD, type 2 DM, Afib, COPD on home O2, JOSIAH, GERD, CKD stage 3, who presented to ED with c/o dyspnea and confusion, found to have acute CHF exacerbation. - Patient Problems (1) Confusion Current Visit: Yes Status: Acute Code(s): R41.0 - DISORIENTATION, UNSPECIFIED SNOMED Code(s): 480259993 Comment: - He appears to have some degree of chronic, mild cognitive impairment, now exacerbated in the setting of hypoxia and multiple hospital admissions. Per psychiatrist, patient lacks capacity to refuse STR. (2) Acute on chronic systolic heart failure Current Visit: Yes Status: Acute Code(s): I50.23 - ACUTE ON CHRONIC SYSTOLIC (CONGESTIVE) HEART FAILURE SNOMED Code(s): 905434398 Comment: - This is his 3rd admission since March. - As per , compliant with medications and diet, but his home RN reports differently - weight down to 211lbs. Continue PO Furosemide bid. BMP 05/17. - Echo done in showed no significant changes from 2017. (3) Acute and chronic respiratory failure with hypoxia Current Visit: Yes Status: Acute Code(s): J96.21 - ACUTE AND CHRONIC RESPIRATORY FAILURE WITH HYPOXIA SNOMED Code(s): 79285512 Comment: - Secondary to CHF exacerbation. - Initially required Vapotherm, now back on [place] 4 liters, close to his baseline, but his baseline is very tenuous. (4) Olecranon bursitis of left elbow Current Visit: Yes Status: Acute Code(s): M70.22 - OLECRANON BURSITIS, LEFT ELBOW SNOMED Code(s): 169220304546937 Comment: - Likely secondary to trauma after fall 04/30 - Ortho consult appreciated. - Continue Clindamycin (allergic to PCN), last day 05/22/19. (5) Atrial fibrillation Current Visit: Yes Status: Chronic Priority: Medium Code(s): I48.91 - UNSPECIFIED ATRIAL FIBRILLATION SNOMED Code(s): 75489035 Comment: - Rate controlled. - Continue Apixaban and Metoprolol. (6) Type 2 diabetes mellitus Current Visit: Yes Status: Chronic Priority: Medium Comment: Increase Lantus to 44/14 units start 05/16 PM. - Metformin on hold in the setting of lactic acidosis. (7) CKD (chronic kidney disease) stage 3, GFR 30-59 ml/min Current Visit: No Status: Chronic Priority: Medium Code(s): N18.3 - CHRONIC KIDNEY DISEASE, STAGE 3 (MODERATE) SNOMED Code(s): 419737546 Comment: Est GFR 54.8 05/15/19. Status and Disposition: updated at bedside. Psych consult appreciated - has no capacity to sign out AMA or refuse SNF. Plan to d/c to [place] SNF with Palliative care 05/18/19.
[2019-05-16] MEDS: Insulin GLARGINE(*) 1 UNITS UNIT SUBCUT SCH (17:02)
[2019-05-16] MEDS: Mometasone 220 MCG MDI INH SCH (19:52)
[2019-05-16] MEDS: Atorvastatin* 10 MG TAB PO SCH (20:31)
[2019-05-16] MEDS: HYDROcodone/ACETAMIN 5-325 MG* 1 TAB PO PRN (23:15)
[2019-05-17] MEDS: Morphine INJ* 2 MG/ML 1 ML SYRINGE (TWO MG - NEW SYRINGE VERSION) IV PRN (00:44)
[2019-05-17] MEDS: HYDROcodone/ACETAMIN 5-325 MG* 1 TAB PO PRN (03:17)
[2019-05-17] MEDS: Clindamycin CAP* 150 MG PO SCH ×3 (06:05→20:59)
[2019-05-17 07:01] LABS: ABS Basophils 0.1 10^3/ul (0-0.2); ABS Eosinophils 0.1 10^3/ul (0-0.6); ABS Lymphocytes 0.8 10^3/ul (1.0-4.8); ABS Monocytes 0.5 10^3/ul (0-0.8); ABS Neutrophils 5.9 10^3/ul (1.5-7.7); Eosinophil % 1.7 %; Hematocrit 33 % (42-52); Hemoglobin 11.2 g/dL (14.0-18.0); Lymphocyte % 11.3 %; Mean Corpuscular HGB Conc 34 g/dL (31-36); Mean Corpuscular Hemoglobin 31 pg (27-31); Mean Corpuscular Volume 92 fL (80-94); Mean Platelet Volume 9.2 fL (7.4-10.4); Nucleated Red Blood Cells % 0.1; Platelet Count 156 10^3/uL (150-450); Red Blood Count 3.59 10^6 /uL (4.18-5.48); Red Cell Distribution Width 17 % (10-15); White Blood Count 7.4 10^3/uL (3.5-10.8)
[2019-05-17 07:04] LABS: BUN/Creatinine Ratio 26.7 (8-20); Calcium 8.8 mg/dL (8.6-10.3); EGFR African American 65.6 (>60); EGFR Non-African American 54.3 (>60); Potassium 3.9 mmol/L (3.5-5.0)
[2019-05-17] MEDS: TIOTROPIUM INH SCH (07:31)
[2019-05-17] MEDS: OLODATEROL INH SCH (07:31)
[2019-05-17] MEDS: Nicotine PATCH 7 MG/24 HR* PATCH TRANSDERM SCH (08:15)
[2019-05-17] MEDS: Pantoprazole TAB * 40 MG TAB PO SCH (08:15)
[2019-05-17] MEDS: Metoprolol Succinate XL TAB* 100 MG PO SCH ×2 (08:15→21:53)
[2019-05-17] MEDS: Clopidogrel TAB* 75 MG PO SCH (08:15)
[2019-05-17] MEDS: LORazepam TAB(*) 0.5 MG PO SCH ×3 (08:15→22:03)
[2019-05-17] MEDS: OXcarbazepine TAB(*) 300 MG PO SCH ×2 (08:15→22:04)
[2019-05-17] MEDS: Insulin LISPRO* 1 UNITS UNIT SUBCUT SCH ×4 (08:15→21:53)
[2019-05-17] MEDS: Furosemide TAB* 40 MG PO SCH ×2 (08:15→20:59)
[2019-05-17] MEDS: Gabapentin CAP(*) 300 MG PO SCH ×2 (08:15→21:30)
[2019-05-17] MEDS: amLODIPine TAB* 5 MG PO SCH (08:15)
[2019-05-17] MEDS: Insulin GLARGINE(*) 1 UNITS UNIT SUBCUT SCH ×2 (08:15→21:30)
[2019-05-17] MEDS: Digoxin TAB* 0.125 MG PO SCH (08:15)
[2019-05-17] MEDS: Apixaban* 5 MG TAB PO SCH ×2 (08:15→21:30)
[2019-05-17] MEDS: Cholecalciferol TAB* 1000 UNITS PO SCH (08:15)
[2019-05-17] MEDS: Sertraline* 50 MG TAB PO SCH (08:15)
[2019-05-17] MEDS: Tamsulosin CAP* 0.4 MG PO SCH (08:15)
[2019-05-17] MEDS ORDERED: Furosemide IV* 10 MG/ML 2 ML VIAL (20 MG) IV ONE (16:56)
--- NOTE | 2019-05-17 17:03 | PN ---
Subjective Date of Service: 05/17/19 Interval History: Pt feeling well this morning with no complaints of CP, SOB, LE edema. Stating he is "walking good" and without SOB, but has only walked short distances to and from bathroom. He is requiring less O2 than usual at 3L (versus home 3.5-5L ). Later, patient states he woke up, thought he was at home and someone was in his house. He got upset, SOB, anxious. Pt reported increased difficulty breathing and required increase in O2 to 10L via mask and satting in high 80's. Family History: Unchanged from Admission Social History: Unchanged from Admission Past Medical History: Unchanged from Admission Objective Active Medications: Acetaminophen (Tylenol Tab*) 650 mg PO Q4H PRN Hydrocodone Bitart/Acetaminophen ([place] 5-325 Tab*) 1 tab PO Q3H PRN Albuterol (Ventolin 2.5 Mg/3 Ml Neb.Jessika*) 2.5 mg INH Q2HR PRN Amlodipine Besylate (Norvasc Tab*) 2.5 mg PO DAILY STELLA Apixaban (Eliquis*) 5 mg PO BID STELLA Atorvastatin Calcium (Lipitor*) 10 mg PO BEDTIME STELLA Cholecalciferol (Vitamin D Tab*) 2,000 units PO DAILY STELLA Clindamycin HCl (Cleocin Cap*) 300 mg PO Q6HR STELLA Clopidogrel Bisulfate (Plavix Tab*) 75 mg PO DAILY STELLA Dextrose (D50w Syringe 50 Ml*) 12.5 gm IV PUSH .FOR FS < 60 - SS PRN Digoxin (Lanoxin Tab*) 0.125 mg PO DAILY STELLA Furosemide (Lasix Tab*) 100 mg PO QAM STELLA Furosemide (Lasix Tab*) 80 mg PO QPM STELLA Furosemide (Lasix Iv*) 10 mg IV ONCE ONE Gabapentin (Neurontin Cap(*)) 600 mg PO BID STELLA Insulin Glargine (Lantus(*)) 44 units SUBCUT QAM STELLA Insulin Glargine (Lantus(*)) 14 units SUBCUT QPM STELLA Insulin Human Lispro (Humalog*) 0 units SUBCUT ACHS STELLA; Protocol Loperamide HCl (Imodium Cap*) 2 mg PO Q6H PRN Lorazepam (Ativan Tab(*)) 0.5 mg PO TID STELLA Metoprolol Succinate (Toprol Xl Tab*) 100 mg PO BID STELLA Miscellaneous (Ativan Pyxis [place]) 1 ea N/A .ATIVAN IV [place] PRN Mometasone Furoate (Asmanex 220 Mcg Mdi *) 2 puff INH BEDTIME STELLA; Protocol Nicotine (Nicotine Patch 7 Mg/24 Hr*) 1 patch TRANSDERM DAILY STELLA Oxcarbazepine (Trileptal Tab(*)) 300 mg PO BID STELLA Pantoprazole Sodium (Protonix Tab*) 40 mg PO DAILY STELLA Sertraline HCl (Zoloft*) 50 mg PO DAILY STELLA Sodium Chloride (Sodium Chloride 0.65% Nasal [place]*) 1 spray BOTH NARES Q4H PRN Tamsulosin HCl (Flomax Cap*) 0.4 mg PO DAILY STELLA Tiotropium [place]/Olodaterol (Stiolto Respimat Inh [place] (60 Puff)(Nf)) 2 puff INH QAM STELLA Vital Signs: Temp Pulse Resp BP Pulse Ox 98.1 F 97 18 107/50 91 05/17/19 12:00 05/17/19 16:37 05/17/19 16:37 05/17/19 12:00 05/17/19 16:37 Oxygen Devices in Use Now: OxyMask Appearance: Pt is currently SOB with pursed lip breathing in tripod position. He speaks in partial sentences, but is improving with transition from NC to mask. Eyes: No Scleral Icterus, PERRLA Neck: NL Appearance and Movements; NL JVP, Trachea Midline Respiratory: Symmetrical Chest Expansion and Respiratory Effort, - - Bibasilar rales Cardiovascular: NL Sounds; No Murmurs; No JVD, No Edema, - - Irregular rhythm, rate controlled Abdominal: NL Sounds; No Tenderness; No Distention, No Hepatosplenomegaly Extremities: No Edema, No Clubbing, Cyanosis Neurological: Alert and Oriented x 3 Result Diagrams: 05/17/19 06:35 05/17/19 06:35 Additional Lab and Data: Above labs were pulled into the note, when the note was edited prior to being signed. See below for labs from the day of consultation. Laboratory Tests 05/10/19 05/11/19 10:55 03:08 WBC 9.3 Hgb 11.1 L Hct 33 L Plt Count 179 Sodium 134 L Potassium 4.3 Chloride 96 L Carbon Dioxide 30 BUN 26 H Creatinine 1.20 H Glucose 348 H Microbiology and Other Data: Microbiology 05/10/19 15:29 Nasal Screen MRSA (PCR) - Final Nasal Mrsa Not Detected Assess/Plan/Problems-Billing Assessment: Mr Berrios is a 68yo M with PMH of CHF with EF 40-45%, CAD, PVD, HTN, HLD, type 2 DM, Afib, COPD on home O2, JOSIAH, GERD, CKD stage 3, who presented to ED with c/o dyspnea and confusion, found to have acute CHF exacerbation. - Patient Problems (1) Acute and chronic respiratory failure with hypoxia Comment: -Secondary to CHF exacerbation. -Initially required Vapotherm, transitioned to NC -Pt then with sudden onset SOB today (05/17) with sats in high 80's on 10L mask -Transfer to ICU for BiPAP -Baseline is very tenuous (2) Acute on chronic systolic heart failure SNOMED Code(s): 174767426 Comment: -This is his 3rd admission since March. Echo done in showed no significant changes from 2017. -As per , compliant with medications and diet, but his home RN reports differently - weight down to 218 lbs. -PO Furosemide BID at home dose 100 a.m., 80 p.m. -IV Lasix 100 now for worsening of acute resp distress requiring transfer to ICU and BiPAP, continued crackles (3) Confusion Comment: -He appears to have some degree of chronic, mild cognitive impairment, now exacerbated in the setting of hypoxia and multiple hospital admissions. -Per psychiatrist, patient lacks capacity to refuse STR. (4) Type 2 diabetes mellitus Comment: -BG improved last 24h -Increase Lantus to 44/14 units start 05/16 p.m. -Metformin on hold in the setting of lactic acidosis (5) Olecranon bursitis of left elbow Comment: -Likely secondary to trauma after fall 04/30 - Ortho consult appreciated. -Continue Clindamycin (allergic to PCN), last day 05/22/19. (6) Atrial fibrillation Comment: -Rate controlled. -Continue Apixaban and Metoprolol. (7) Hip pain Comment: - Unclear timing as per patient, but thinks this was after the fall on . - CT pelvis negative for fracture. (8) Physical deconditioning Comment: -PT/OT consults appreciated. (9) DVT prophylaxis Comment: -Apixaban. (10) Full code status Status and Disposition: updated at bedside. Psych consult appreciated - has no capacity to sign out AMA or refuse SNF. Plan to d/c to [facility] with Palliative care 05/18/19.
[2019-05-17] MEDS ORDERED: Furosemide IV* 10 MG/ML 10 ML VIAL (100 MG) IV ONE (17:07)
[2019-05-17] MEDS: Mometasone 220 MCG MDI INH SCH (19:10)
[2019-05-17] MEDS: Atorvastatin* 10 MG TAB PO SCH (21:30)
[2019-05-18] MEDS: Clindamycin CAP* 150 MG PO SCH (01:55)
[2019-05-18] MEDS: HYDROcodone/ACETAMIN 5-325 MG* 1 TAB PO PRN (05:49)
[2019-05-18 05:51] LABS: ABS Eosinophils 0.1 10^3/ul (0-0.6); ABS Lymphocytes 0.7 10^3/ul (1.0-4.8); ABS Monocytes 0.5 10^3/ul (0-0.8); ABS Neutrophils 6.6 10^3/ul (1.5-7.7); Eosinophil % 1.9 %; Hematocrit 34 % (42-52); Hemoglobin 11.3 g/dL (14.0-18.0); Lymphocyte % 8.7 %; Mean Corpuscular HGB Conc 34 g/dL (31-36); Mean Corpuscular Hemoglobin 31 pg (27-31); Mean Corpuscular Volume 91 fL (80-94); Mean Platelet Volume 8.8 fL (7.4-10.4); Platelet Count 154 10^3/uL (150-450); Red Cell Distribution Width 17 % (10-15)
[2019-05-18 06:08] LABS: BUN/Creatinine Ratio 25.6 (8-20); Calcium 8.8 mg/dL (8.6-10.3); EGFR African American 69.3 (>60); EGFR Non-African American 57.3 (>60); Potassium 3.7 mmol/L (3.5-5.0)
[2019-05-18] MEDS ORDERED: Clindamycin CAP* 150 MG PO SCH (08:00)
[2019-05-18] MEDS: TIOTROPIUM INH SCH (08:12)
[2019-05-18] MEDS: OLODATEROL INH SCH (08:12)
[2019-05-18] MEDS: Insulin LISPRO* 1 UNITS UNIT SUBCUT SCH (09:04)
[2019-05-18] MEDS: Nicotine PATCH 7 MG/24 HR* PATCH TRANSDERM SCH (09:28)
[2019-05-18] MEDS: Furosemide TAB* 40 MG PO SCH (09:31)
[2019-05-18] MEDS: Apixaban* 5 MG TAB PO SCH (09:32)
[2019-05-18] MEDS: Tamsulosin CAP* 0.4 MG PO SCH (09:32)
[2019-05-18] MEDS: Sertraline* 50 MG TAB PO SCH (09:32)
[2019-05-18] MEDS: Pantoprazole TAB * 40 MG TAB PO SCH (09:32)
[2019-05-18] MEDS: Gabapentin CAP(*) 300 MG PO SCH (09:32)
[2019-05-18] MEDS: amLODIPine TAB* 5 MG PO SCH (09:32)
[2019-05-18] MEDS: Cholecalciferol TAB* 1000 UNITS PO SCH (09:36)
[2019-05-18] MEDS: Clopidogrel TAB* 75 MG PO SCH (09:36)
[2019-05-18] MEDS: Digoxin TAB* 0.125 MG PO SCH (09:36)
[2019-05-18] MEDS: Metoprolol Succinate XL TAB* 100 MG PO SCH (09:37)
[2019-05-18] MEDS: LORazepam TAB(*) 0.5 MG PO SCH (09:38)
[2019-05-18] MEDS: Insulin GLARGINE(*) 1 UNITS UNIT SUBCUT SCH (09:42)
[2019-05-18] MEDS: OXcarbazepine TAB(*) 300 MG PO SCH (10:10)
[2019-05-18 10:18] VITALS: BP 95/61
--- NOTE | 2019-05-18 10:59 | DS ---
CC: Radha Manrique; Dr. Walls; Dr. Nunez; Dr. Medina * DISCHARGE SUMMARY: DATE OF ADMISSION: 05/10/19 DATE OF DISCHARGE: 05/18/19 PRIMARY CARE PROVIDER: Radha Manrique. OTHER PROVIDERS: Dr. Walls, Dr. Nunez, Dr. Medina at [facility]. ATTENDING PHYSICIAN: Dr. Daysi Pathak * (dictated by GEORGES Avila). PRIMARY DIAGNOSES: 1. Acute on chronic systolic heart failure. 2. Acute on chronic respiratory failure with hypoxia. 3. Confusion. 4. Olecranon bursitis of the left elbow. SECONDARY DIAGNOSES: 1. Systolic heart failure, EF 40% to 45%. 2. Chronic respiratory failure with hypoxia, 4 L O2 NC all times. 3. Coronary artery disease. 4. Hypertension. 5. Hyperlipidemia. 6. Diabetes mellitus type 2. 7. Atrial fibrillation. 8. Chronic kidney disease. 9. Chronic obstructive pulmonary disease. 10. Obstructive sleep apnea. 11. Gastroesophageal reflux disease. 12. Elevated troponin. CONSULTATIONS WHILE IN THE HOSPITAL: Palliative Care/Hospice. Discussion with the patient and about achieving goals of dying at home. The patient will need to go to rehab to get stronger, so he can get home. Once at home, he should be on palliative outpatient services so he can transition to hospice. DIAGNOSTIC STUDIES: Brain CT 05/10/19, impression: Extra-axial dilation of the right lateral ventricle with occipital encephalomalacia. No intracranial mass or hemorrhage is noted. Pelvis CT 05/11/19, impression: No fracture of the pelvis or hips is noted. No pelvic masses are identified. DISCHARGE MEDICATIONS: Home medications: 1. Albuterol 2.5 mg/3 mL inhalation q.2 hours p.r.n. shortness of breath. 2. Amlodipine 2.5 mg p.o. daily. 3. Apixaban 5 mg p.o. b.i.d. 4. Atorvastatin 10 mg p.o. at bedtime. 5. Cholecalciferol 2000 units p.o. daily. 6. Clopidogrel 75 mg p.o. daily. 7. Digoxin 0.125 mg p.o. daily. 8. Furosemide 100 mg p.o. q.a.m., 80 mg p.o. q.p.m. 9. Hydrocodone/acetaminophen 7.5/325 one tab p.o. q.6 hours p.r.n. pain. 10. Loperamide 2 mg p.o. q.6 hours p.r.n. diarrhea. 11. Lorazepam 0.5 mg p.o. t.i.d. 12. Metoprolol succinate XL 100 mg p.o. b.i.d. 13. Mometasone 220 mcg MDI 2 puffs inhalation at bedtime. 14. Oxcarbazepine 300 mg p.o. b.i.d. 15. Pantoprazole 40 mg p.o. daily. 16. Sertraline 50 mg p.o. daily. 17. Tamsulosin 0.4 mg p.o. daily. New home medications: 1. Acetaminophen 650 mg p.o. q.4 hours p.r.n. 2. Clindamycin 300 mg p.o. q.6 hours, last dose 05/22/19. 3. Gabapentin 600 mg p.o. b.i.d. Changed medications: 1. Insulin glargine 44 units subcutaneous q.a.m., 14 units subcutaneous q.p.m. 2. Insulin lispro sliding scale a.c. and h.s. HISTORY OF PRESENT ILLNESS/HOSPITAL COURSE: Mr. Berrios is a 68-year-old male with a past medical history of acute on chronic systolic heart failure which has required multiple hospital visits to the ER and 3 admissions since March, chronic respiratory failure with hypoxia requiring 4 L O2, diabetes mellitus, atrial fibrillation, coronary artery disease, hypertension, hyperlipidemia who presented to the ER on 05/10/19 with complaints of shortness of breath and confusion. For full and complete details, please see the history and physical dictated by GEORGES Avila, but in short, the patient presented with acute onset shortness of breath and confusion. He had associated weakness, dizziness, lightheadedness. Workup in the ER revealed elevated BNP as well as chest x-ray with left basilar atelectasis, interstitial edema. The patient was admitted to the hospital for further treatment and workup. It was noted that the patient was admitted to the ICU due to need for Vapotherm, which he was slowly weaned off, and by the end of his hospital visit, he was back on his baseline of 3 to 4 L oxygen per nasal cannula. His acute on chronic systolic heart failure was treated with IV Lasix, dietary restriction of salt, fluid restriction, daily weights, and intake and output. By the end of the patient's visit, he resumed his regular daily dose of Lasix 100 q.a.m., 80 q.p.m. With regards to the confusion, the patient complains he appears to have some degree of chronic mild cognitive impairment. This was believed to be exacerbated by his hypoxia and hospital admissions. The patient was noted to have hip pain while in the hospital. He is unsure when this began, but his relayed that she believes it was due to a fall on 04/30/19. CT of the pelvis was performed during this visit and showed no fracture or pelvic mass. The patient also had left elbow pain. Orthopedics was consulted and noted an olecranon bursitis of the left elbow, likely secondary to fall on 04/30/19. Dr. Lopez suggested clindamycin as the patient is allergic to PENICILLIN. The patient is continued on this medication through discharge until 05/22/19. The patient was noted to have some physical deconditioning. Physical therapy and occupational therapy were ordered. They suggested subacute rehab. A psych consultation was ordered regarding the patient's capacity and it was noted that he lacks capacity to make decisions to refuse subacute rehab, although at this time he appears to be eager to go to subacute rehab, gain strength, and go home. The patient's Lantus was increased to 44 units in the a.m., 14 units in the p.m., which appeared to regulate his blood sugars fairly well throughout his hospital stay. It is important to note that the day prior to discharge the patient states that he was sleeping, was startled and awoken in his bed. He was confused, he thought he was at his home and somebody had broken in. He started to develop shortness of breath and was feeling fearful and anxious. He was unable to control his breathing and required transfer to the ICU for a very short stint of Vapotherm. Within hours, he was back on his home dose of oxygen, 4 L per nasal cannula, and satting in the low to mid 90s. This morning, the patient reports no chest pain, no shortness of breath. He denies cough, fever, chills, sweats. He denies abdominal pain, nausea, vomiting, or constipation. He continues to have some left elbow pain due to his bursitis. He does note that he has diarrhea daily, for which he takes Imodium. He reports no increase in diarrhea or change in consistency. He denies lower extremity swelling. Mr. Berrios is stable for discharge. PHYSICAL EXAMINATION: Vital Signs: Temperature 97.6 temporal, heart rate 60, respiratory rate 17, oxygen saturation 93% on 3 L nasal cannula, blood pressure 110/51. General: Mr. Berrios is a well-developed, well-nourished, obese white male who appears acutely ill and older than his stated age. He is sitting up in bed. He is breathing comfortably with nasal cannula in place. He is in no acute distress, no respiratory distress. HEENT: PERRL, EOMI. Nonicteric sclerae. Hearing grossly intact. Oral mucous membranes are moist. Cardiovascular: Irregular rhythm, rate controlled. No murmurs, rubs, clicks, or gallops. There is no JVD. There is no peripheral edema. Radial pulses are palpable. Pulmonary: Symmetrical chest expansion without use of accessory muscles. There are left basilar rales noted. No wheezing or rhonchi. Abdomen : Obese. Bowel sounds noted in all quadrants. There is no tenderness to palpation. Abdomen is soft. Musculoskeletal: Full range of motion without pain. The left elbow is erythematous and swollen but able to be moved. Neuro: The patient is awake. He is alert and oriented x3. He is able to move all of his extremities. Cranial nerves are grossly intact. DISCHARGE PLAN: Mr. Berrios will be discharged to [facility]. CONDITION: Guarded, stable. ACTIVITY: As tolerated. DIET: Heart healthy, low salt. 1.5 L per day fluid restriction. MEDICATIONS: As above. EDUCATION: 1. Last day of clindamycin is 05/22/19. 2. Recheck BMP in approximately 3 days. Follow up with primary care provider, Palliative Care after discharge from [facility]. 3. Return to the ER or nearest hospital if he experiences any worsening symptoms, shortness of breath, increase in oxygen need, lightheadedness, dizziness, loss of consciousness, high fevers, chills, night sweats, or any other worrisome signs or symptoms. This is a summarized report of a complex medical history and hospital stay. For further details, please see the entire medical record. TIME SPENT: Approximately 40 minutes was spent on this discharge, greater than half that time was spent [id number] with the patient discussing discharge plans and instructions. GEORGES LIVINGSTON [id number]/CPS #: [id number] TRUPTI
== END 2019-05-18 10:10 | DRG 291 ==
LOC: ED 10:12 → ICU 13:41 → MEDTELE 05-12 14:42 → ICU 05-17 18:05
PROVIDERS: ADMIT Physician Assistant Medical; ATTEND Internal Medicine
PROC: 5A09357 Assistance with Respiratory Ventilation, Less than 24 Consecutive Hours, Continuous Positive Airway Pressure (ICD-10-PCS; principal; 2019-05-17)
DX: I13.0 Hypertensive heart and chronic kidney disease with heart failure and stage 1 through stage 4 chronic kidney disease, or unspecified chronic kidney disease (principal); J96.21 Acute and chronic respiratory failure with hypoxia; I50.23 Acute on chronic systolic (congestive) heart failure; E87.2 Acidosis; I42.2 Other hypertrophic cardiomyopathy; E78.5 Hyperlipidemia, unspecified; I48.91 Unspecified atrial fibrillation; I25.10 Atherosclerotic heart disease of native coronary artery without angina pectoris; E78.00 Pure hypercholesterolemia, unspecified; J44.9 Chronic obstructive pulmonary disease, unspecified; J30.2 Other seasonal allergic rhinitis; K21.9 Gastro-esophageal reflux disease without esophagitis; K58.9 Irritable bowel syndrome, unspecified; N40.0 Benign prostatic hyperplasia without lower urinary tract symptoms; F41.9 Anxiety disorder, unspecified; F32.9 Major depressive disorder, single episode, unspecified; R40.2412 Glasgow coma scale score 13-15, at arrival to emergency department; I45.10 Unspecified right bundle-branch block; F43.10 Post-traumatic stress disorder, unspecified; D64.9 Anemia, unspecified; R29.6 Repeated falls; G47.33 Obstructive sleep apnea (adult) (pediatric); R79.89 Other specified abnormal findings of blood chemistry; E11.621 Type 2 diabetes mellitus with foot ulcer; M71.122 Other infective bursitis, left elbow; N18.3 Chronic kidney disease, stage 3 (moderate); E11.22 Type 2 diabetes mellitus with diabetic chronic kidney disease; E11.42 Type 2 diabetes mellitus with diabetic polyneuropathy; L97.529 Non-pressure chronic ulcer of other part of left foot with unspecified severity; E83.42 Hypomagnesemia; E11.51 Type 2 diabetes mellitus with diabetic peripheral angiopathy without gangrene; Z72.89 Other problems related to lifestyle; Z87.891 Personal history of nicotine dependence; Z86.73 Personal history of transient ischemic attack (TIA), and cerebral infarction without residual deficits; Z88.6 Allergy status to analgesic agent; Z88.8 Allergy status to other drugs, medicaments and biological substances; Z91.030 Bee allergy status; Z88.0 Allergy status to penicillin; I25.2 Old myocardial infarction; Z91.013 Allergy to seafood; Z93.2 Ileostomy status; Z95.5 Presence of coronary angioplasty implant and graft; Z86.19 Personal history of other infectious and parasitic diseases; Z79.02 Long term (current) use of antithrombotics/antiplatelets; Z79.01 Long term (current) use of anticoagulants; Z79.4 Long term (current) use of insulin
CPT/HCPCS: 36415; 70450; 71045; 72192; 80048; 80053; 80162; 80320; 80329; 81003; 81015; 82140; 82803; 82947; 83605; 83735; 83880; 84100; 84443; 84484; 85025; 85610; 85730; 87040; 87641; 93005; 94640; 94660; 99285; A9270-GY; G0480; G8987-GO-CL; G8988-GO-CI; J1100; J1940; J2060; J2270; J3475

== ENCOUNTER 2019-09-05 20:28 | Emergency (ER) | payer OTHER ==
[2019-09-05] MEDS ORDERED: Albuterol/Ipratropium NEB.SOL* Albuterol 2.5 MG/Ipratropium 0.5 MG 3 ML INH ONE (20:52)
[2019-09-05] MEDS ORDERED: methylPREDNISolone 125 MG* 2 ML VIAL IV ONE (20:52)
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
[2019-09-05 21:42] LABS: ABS Basophils 0.1 10^3/ul (0-0.2); ABS Eosinophils 0.1 10^3/ul (0-0.6); ABS Lymphocytes 0.6 10^3/ul (1.0-4.8); ABS Monocytes 0.4 10^3/ul (0-0.8); ABS Neutrophils 7.6 10^3/ul (1.5-7.7); Eosinophil % 0.7 %; Hematocrit 33 % (42-52); Hemoglobin 10.8 g/dL (14.0-18.0); Lymphocyte % 6.8 %; Mean Corpuscular HGB Conc 33 g/dL (31-36); Mean Corpuscular Hemoglobin 28 pg (27-31); Mean Corpuscular Volume 85 fL (80-94); Mean Platelet Volume 9.4 fL (7.4-10.4); Nucleated Red Blood Cells % 0.1; Platelet Count 130 10^3/uL (150-450); Red Blood Count 3.84 10^6 /uL (4.18-5.48); Red Cell Distribution Width 19 % (10-15); White Blood Count 8.8 10^3/uL (3.5-10.8)
[2019-09-05] MEDS ORDERED: Furosemide IV* 10 MG/ML 10 ML VIAL (100 MG) IV ONE (21:45)
[2019-09-05 21:57] LABS: INR 1.28 (0.82-1.09)
[2019-09-05 21:58] LABS: ALT 10 U/L (7-52); AST 17 U/L (13-39); Albumin 3.8 g/dL (3.2-5.2); Albumin/Globulin Ratio 1.4 (1-3); Alkaline Phosphatase 130 U/L (34-104); Anion Gap 7 mmol/L (2-11); BUN/Creatinine Ratio 14.7 (8-20); Blood Urea Nitrogen 32 mg/dL (6-24); CO2 Carbon Dioxide 33 mmol/L (22-32); Calcium 9.2 mg/dL (8.6-10.3); Chloride 97 mmol/L (101-111); EGFR African American 36.7 (>60); EGFR Non-African American 30.3 (>60); Globulin 2.7 g/dL (2-4); Glucose 234 mg/dL (70-100); Potassium 4.5 mmol/L (3.5-5.0); Sodium 137 mmol/L (135-145); Total Protein 6.5 g/dL (6.4-8.9)
[2019-09-05 22:02] LABS: Troponin I 0.04 ng/mL (<0.04)
[2019-09-05 22:03] LABS: Digoxin 0.6 ng/ml (0.8-2.0)
--- NOTE | 2019-09-05 22:08 | ED ---
Progress - Progress Note Progress Note: This patient was signed out from Dr. Vences to Dr. Leigh at 2200 09/05/19, pending disposition, awaiting troponin results. Tests reveal Troponin I 0.04 at 21:34. Course/Dx - Course Course Of Treatment: This patient was signed out from Dr. Vences to Dr. Leigh at 2200 09/05/19, pending disposition, awaiting troponin results. Tests reveal Troponin I 0.04 at 21:34. The patients condition is stable and will be discharged to home with Dx of congestive heart failure. Pt is feeling better and requesting discharge. - Diagnoses Provider Diagnoses: Congestive heart failure Discharge ED - Sign-Out/Discharge Documenting (check all that apply): Patient Departure - discharge - Discharge Plan Condition: Good Disposition: HOME Patient Education Materials: Heart Failure (ED) Referrals: No Primary Care Phys,NOPCP [Primary Care Provider] - Additional Instructions: Contact your regular doctor on Saturday for a followup appt. You may need an adjustment on your medications. - Billing Disposition and Condition Condition: GOOD Disposition: Home - Attestation Statements Document Initiated by Griceldaibe: Yes Documenting Scribe: Kandi Barr Provider For Whom Efren is Documenting (Include Credential): Dr. Henry Leigh MD Scribe Attestation: Kandi Ngo scribed for Dr. Henry Leigh MD on 09/08/19 at 1756. Scribe Documentation Reviewed: Yes Provider Attestation: The documentation as recorded by the Kandi israel accurately reflects the service I personally performed and the decisions made by me, Dr. Henry Leigh MD Status of Scribe Document: Viewed
[2019-09-06 01:38] VITALS: BP 94/74
== END 2019-09-06 01:26 | disposition home or self-care (01) ==
LOC: ED 20:28
DX: I50.9 Heart failure, unspecified (principal); J44.1 Chronic obstructive pulmonary disease with (acute) exacerbation; N40.0 Benign prostatic hyperplasia without lower urinary tract symptoms; R06.00 Dyspnea, unspecified; K21.9 Gastro-esophageal reflux disease without esophagitis; F17.210 Nicotine dependence, cigarettes, uncomplicated; F41.9 Anxiety disorder, unspecified; F32.9 Major depressive disorder, single episode, unspecified; F43.10 Post-traumatic stress disorder, unspecified; Z88.0 Allergy status to penicillin; Z86.73 Personal history of transient ischemic attack (TIA), and cerebral infarction without residual deficits; Z79.01 Long term (current) use of anticoagulants
CPT/HCPCS: 36415; 71046; 80053; 80162; 83605; 83880; 84484; 85025; 85610; 93005; 96374; 96375; 99283; A9270-GY; J1940; J2930

== ENCOUNTER 2019-09-22 18:12 | Inpatient (IN) | payer OTHER ==
[2019-09-22 18:36] LABS: ABS Basophils 0.1 10^3/ul (0-0.2); ABS Lymphocytes 0.4 10^3/ul (1.0-4.8); ABS Monocytes 0.3 10^3/ul (0-0.8); ABS Neutrophils 7.8 10^3/ul (1.5-7.7); Eosinophil % 0.5 %; Hematocrit 38 % (42-52); Hemoglobin 11.9 g/dL (14.0-18.0); Mean Corpuscular HGB Conc 32 g/dL (31-36); Mean Corpuscular Hemoglobin 27 pg (27-31); Mean Corpuscular Volume 87 fL (80-94); Nucleated Red Blood Cells % 0.1; Platelet Count 166 10^3/uL (150-450); Red Blood Count 4.35 10^6 /uL (4.18-5.48); Red Cell Distribution Width 19 % (10-15); White Blood Count 8.6 10^3/uL (3.5-10.8)
[2019-09-22 18:53] LABS: ALT 12 U/L (7-52); AST 19 U/L (13-39); Albumin/Globulin Ratio 1.3 (1-3); Alkaline Phosphatase 161 U/L (34-104); Anion Gap 13 mmol/L (2-11); BUN/Creatinine Ratio 18.3 (8-20); Blood Urea Nitrogen 30 mg/dL (6-24); CO2 Carbon Dioxide 28 mmol/L (22-32); Calcium 9.3 mg/dL (8.6-10.3); Chloride 95 mmol/L (101-111); EGFR African American 50.7 (>60); EGFR Non-African American 41.9 (>60); Potassium 4.8 mmol/L (3.5-5.0); Sodium 136 mmol/L (135-145)
[2019-09-22 18:58] LABS: Glucose 528 mg/dL (70-100); Troponin I 0.05 ng/mL (<0.03)
[2019-09-22] MEDS ORDERED: Insulin REGULAR(*) 1 UNITS UNIT SUBCUT ONE (19:03)
[2019-09-22] MEDS ORDERED: Furosemide IV* 10 MG/ML VIAL (40 MG) IV SLOW PU ONE (19:04)
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
[2019-09-22] MEDS ORDERED: Acetaminophen TAB* 325 MG PO PRN (22:55)
[2019-09-22] MEDS ORDERED: Loperamide CAP* 2 MG PO PRN (22:55)
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
[2019-09-23 05:44] LABS: ABS Eosinophils 0.1 10^3/ul (0-0.6); ABS Lymphocytes 1.7 10^3/ul (1.0-4.8); ABS Monocytes 0.9 10^3/ul (0-0.8); ABS Neutrophils 6.7 10^3/ul (1.5-7.7); Eosinophil % 1.2 %; Hematocrit 41 % (42-52); Hemoglobin 13.8 g/dL (14.0-18.0); Mean Corpuscular HGB Conc 34 g/dL (31-36); Mean Corpuscular Hemoglobin 32 pg (27-31); Mean Corpuscular Volume 95 fL (80-94); Nucleated Red Blood Cells % 0.1; Red Blood Count 4.29 10^6 /uL (4.18-5.48); Red Cell Distribution Width 14 % (10-15); White Blood Count 9.5 10^3/uL (3.5-10.8)
[2019-09-23 05:51] LABS: BUN/Creatinine Ratio 20.9 (8-20); Calcium 9.4 mg/dL (8.6-10.3); EGFR African American 54.9 (>60); EGFR Non-African American 45.4 (>60); Potassium 4.7 mmol/L (3.5-5.0)
[2019-09-23 06:58] LABS: Mean Platelet Volume 11.6 fL (7.4-10.4); Platelet Count 46 10^3/uL (150-450)
[2019-09-23] MEDS ORDERED: Furosemide IV* 10 MG/ML VIAL (40 MG) IV SLOW PU SCH (08:00)
[2019-09-23] MEDS ORDERED: Furosemide IV* 10 MG/ML 10 ML VIAL (100 MG) ONE (09:23)
[2019-09-23] MEDS: Gabapentin CAP(*) 300 MG PO SCH ×2 (09:41→20:23)
[2019-09-23] MEDS: Metoprolol Succinate XL TAB* 100 MG PO SCH ×2 (09:41→20:22)
[2019-09-23] MEDS: Pantoprazole TAB * 40 MG TAB PO SCH (09:41)
[2019-09-23] MEDS: Sertraline* 50 MG TAB PO SCH (09:41)
[2019-09-23] MEDS: Digoxin TAB* 0.125 MG PO SCH (09:42)
[2019-09-23] MEDS: Apixaban* 5 MG TAB PO SCH ×2 (09:42→20:22)
[2019-09-23] MEDS: OXcarbazepine TAB(*) 300 MG PO SCH ×2 (09:43→20:22)
[2019-09-23] MEDS: Clopidogrel TAB* 75 MG PO SCH (09:43)
[2019-09-23] MEDS: amLODIPine TAB* 5 MG PO SCH (09:43)
[2019-09-23] MEDS: Tamsulosin CAP* 0.4 MG PO SCH (09:43)
[2019-09-23] MEDS: Insulin LISPRO* 1 UNITS UNIT SUBCUT SCH ×4 (09:44→21:53)
[2019-09-23] MEDS: Insulin GLARGINE(*) 1 UNITS UNIT SUBCUT SCH ×2 (09:44→17:44)
[2019-09-23] MEDS: Nicotine PATCH 7 MG/24 HR* PATCH TRANSDERM SCH (09:45)
[2019-09-23] MEDS: Cholecalciferol TAB* 1000 UNITS PO SCH (09:45)
[2019-09-23] MEDS: Mometasone 220 MCG MDI INH SCH ×2 (09:54→20:43)
[2019-09-23] MEDS: Tiotropium Brom/Olodaterol MDI INH SCH (09:54)
[2019-09-23 10:11] LABS: Mean Platelet Volume 9.5 fL (7.4-10.4); Platelet Count 134 10^3/uL (150-450)
[2019-09-23] MEDS: FUROSEMIDE IV SCH ×2 (10:49→19:44)
[2019-09-23] MEDS: NS 0.9% IV SCH ×2 (10:49→19:44)
--- NOTE | 2019-09-23 14:05 | PN ---
Subjective Date of Service: 09/23/19 Interval History: Patient reports that he is feeling better, reports that breathing is better. Patient reports used BiPAP during the night and was removed this AM at 10. Continues to require supplemental oxygen at 8 liter and baseline is 3.5 liter, remains tachypenic. Denies chest pain. Denies fever or chills. Denies abd n/v/d. Family History: Unchanged from Admission Social History: Unchanged from Admission Past Medical History: Unchanged from Admission Objective Active Medications: Acetaminophen (Tylenol Tab*) 650 mg PO Q4H PRN PRN Reason: FEVER/PAIN Hydrocodone Bitart/Acetaminophen ([place] 5-325 Tab*) 1 tab PO Q3H PRN PRN Reason: PAIN - MODERATE Albuterol (Ventolin 2.5 Mg/3 Ml Neb.Jessika*) 2.5 mg INH Q2HR PRN PRN Reason: SHORTNESS OF BREATH Amlodipine Besylate (Norvasc Tab*) 2.5 mg PO DAILY [facility] Last Admin: 09/23/19 09:43 Dose: 2.5 mg Apixaban (Eliquis*) 5 mg PO BID [facility] Last Admin: 09/23/19 09:42 Dose: 5 mg Atorvastatin Calcium (Lipitor*) 10 mg PO BEDTIME [facility] Cholecalciferol (Vitamin D Tab*) 2,000 units PO DAILY [facility] Last Admin: 09/23/19 09:45 Dose: 2,000 units Clopidogrel Bisulfate (Plavix Tab*) 75 mg PO DAILY [facility] Last Admin: 09/23/19 09:43 Dose: 75 mg Digoxin (Lanoxin Tab*) 0.125 mg PO DAILY [facility] Last Admin: 09/23/19 09:42 Dose: 0.125 mg Gabapentin (Neurontin Cap(*)) 600 mg PO BID [facility] Last Admin: 09/23/19 09:41 Dose: 600 mg Furosemide 100 mg/ Sodium (Chloride) 60 mls @ 120 mls/hr IV 0800,1700 [facility] Last Admin: 09/23/19 10:49 Dose: 120 mls/hr Insulin Glargine (Lantus(*)) 14 units SUBCUT QPM [facility] Insulin Glargine (Lantus(*)) 44 units SUBCUT QAM [facility] Last Admin: 09/23/19 09:44 Dose: 44 units Insulin Human Lispro (Humalog*) 0 units SUBCUT ACHS [facility]; Protocol Last Admin: 09/23/19 12:49 Dose: 6 units Loperamide HCl (Imodium Cap*) 2 mg PO Q6H PRN PRN Reason: DIARRHEA Metoprolol Succinate (Toprol Xl Tab*) 100 mg PO BID [facility] Last Admin: 09/23/19 09:41 Dose: 100 mg Mometasone Furoate (Asmanex 220 Mcg Mdi *) 1 puff INH BID [facility]; Protocol Last Admin: 09/23/19 09:54 Dose: Not Given Nicotine (Nicotine Patch 7 Mg/24 Hr*) 1 patch TRANSDERM DAILY [facility] Last Admin: 09/23/19 09:45 Dose: 1 patch Oxcarbazepine (Trileptal Tab(*)) 300 mg PO BID [facility] Last Admin: 09/23/19 09:43 Dose: 300 mg Pantoprazole Sodium (Protonix Tab*) 40 mg PO DAILY [facility] Last Admin: 09/23/19 09:41 Dose: 40 mg Sertraline HCl (Zoloft*) 50 mg PO DAILY [facility] Last Admin: 09/23/19 09:41 Dose: 50 mg Tamsulosin HCl (Flomax Cap*) 0.4 mg PO DAILY [facility] Last Admin: 09/23/19 09:43 Dose: 0.4 mg Tiotropium [place]/Olodaterol (Stiolto Respimat Inh [place] (60 Puff)) 2 puff INH DAILY [facility] Last Admin: 09/23/19 09:54 Dose: Not Given Vital Signs - 8 hr 09/23/19 09/23/19 09/23/19 07:57 08:00 09:41 Temperature 97.7 F Pulse Rate 70 Respiratory 16 20 17 Rate Blood Pressure 140/55 (mmHg) O2 Sat by Pulse 100 Oximetry 09/23/19 09:42 Temperature Pulse Rate 68 Respiratory Rate Blood Pressure (mmHg) O2 Sat by Pulse Oximetry Oxygen Devices in Use Now: Nasal Cannula Appearance: alert oriented x 3 , mild respiratory distress Eyes: No Scleral Icterus Ears/Nose/Mouth/Throat: Clear Oropharnyx, Mucous Membranes Moist Neck: NL Appearance and Movements; NL JVP, Trachea Midline Respiratory: Symmetrical Chest Expansion and Respiratory Effort, - - diminished bilat Cardiovascular: NL Sounds; No Murmurs; No JVD, No Edema Abdominal: NL Sounds; No Tenderness; No Distention Extremities: No Edema, No Clubbing, Cyanosis Skin: - - left elbow with open wound with purlent drainage. Neurological: Alert and Oriented x 3 Nutrition: Taking PO's Result Diagrams: 09/24/19 05:25 09/24/19 05:25 Additional Lab and Data: Lab Results 09/22/19 09/22/19 09/22/19 Range/Units 18:15 18:15 18:15 WBC 8.6 (3.5-10.8) 10^3/uL RBC 4.35 (4.18-5.48) 10^6 /uL Hgb 11.9 L (14.0-18.0) g/dL Hct 38 L (42-52) % MCV 87 (80-94) fL MCH 27 (27-31) pg MCHC 32 (31-36) g/dL RDW 19 H (10-15) % Plt Count 166 (150-450) 10^3/uL MPV 10.0 (7.4-10.4) fL Neut % (Auto) 90.0 % Lymph % (Auto) 5.0 % [place] % (Auto) 3.7 % Eos % (Auto) 0.5 % Baso % (Auto) 0.8 % Absolute Neuts (auto) 7.8 H (1.5-7.7) 10^3/ul Absolute Lymphs (auto) 0.4 L (1.0-4.8) 10^3/ul Absolute Monos (auto) 0.3 (0-0.8) 10^3/ul Absolute Eos (auto) 0.0 (0-0.6) 10^3/ul Absolute Basos (auto) 0.1 (0-0.2) 10^3/ul Absolute Nucleated RBC 0.0 10^3/ul Nucleated RBC % 0.1 Sodium 136 (135-145) mmol/L Potassium 4.8 (3.5-5.0) mmol/L Chloride 95 L (101-111) mmol/L Carbon Dioxide 28 (22-32) mmol/L Anion Gap 13 H (2-11) mmol/L BUN 30 H (6-24) mg/dL Creatinine 1.64 H (0.67-1.17) mg/dL Est GFR ( Amer) 50.7 (>60) Est GFR (Non-Af Amer) 41.9 (>60) BUN/Creatinine Ratio 18.3 (8-20) Glucose 528 H* (70-100) mg/dL Calcium 9.3 (8.6-10.3) mg/dL Total Bilirubin 1.00 (0.2-1.0) mg/dL AST 19 (13-39) U/L ALT 12 (7-52) U/L Alkaline Phosphatase 161 H (34-104) U/L Troponin I 0.05 H* (<0.03) ng/mL B-Natriuretic Peptide > 1300 H (<=100) pg/mL Total Protein 7.0 (6.4-8.9) g/dL Albumin 4.0 (3.2-5.2) g/dL Globulin 3.0 (2-4) g/dL Albumin/Globulin Ratio 1.3 (1-3) Microbiology and Other Data: Microbiology 09/23/19 05:56 Gram Stain - Final Elbow Left Assess/Plan/Problems-Billing Assessment: Mr. Berrios is a 68 y.o male with a past medical hx of systolic CHF, HTN, DM type 2, afib, JOSIAH, GERD who presented to the ER with shortness of breath found to have an exacerbation of CHF. - Patient Problems (1) Acute and chronic respiratory failure with hypoxia Current Visit: No Status: Acute Code(s): J96.21 - ACUTE AND CHRONIC RESPIRATORY FAILURE WITH HYPOXIA SNOMED Code(s): 38013008 Comment: -Secondary to CHF exacerbation. -Initially required BIPAP, transitioned to NC this morning -Will continue daily weights, Strict I/O's -Lasix IV - will reevaluate fluid status in the AM and transition to PO lasix as able - will wean O2 as able (2) Acute on chronic systolic heart failure Current Visit: No Status: Acute Code(s): I50.23 - ACUTE ON CHRONIC SYSTOLIC (CONGESTIVE) HEART FAILURE SNOMED Code(s): 904894491 Comment: - Echo done in showed no significant changes from 2017- EF 40-45% -IV Lasix 100 mg BID - will transition to PO lasix as able - continues to require - o2 via NC at 8 liters (3) Infection of left elbow Current Visit: Yes Status: Acute Code(s): M00.9 - PYOGENIC ARTHRITIS, UNSPECIFIED SNOMED Code(s): 244515099 Comment: - Ortho consulted - will get wound and blood cultures - Will start Vancomycin until cultures are available - patient is currently a poor canidate for surgery d/t hypoxic respiratory failure, and chronic medical conditions (4) COPD (chronic obstructive pulmonary disease) Current Visit: No Status: Chronic Priority: Medium Code(s): J44.9 - CHRONIC OBSTRUCTIVE PULMONARY DISEASE, UNSPECIFIED SNOMED Code(s): 81906083 Comment: - Uses supplemental O2 at home 3.5liters at baseline- requiring 8 liters today - will wean as able - mild COPD exacerbation- continue to c/o shortness of breath - this is likely a combination of CHF and COPD exacberation contributing to his shortness of breath. Patient does report increase cough ,shortness of breath and sputum roduction.- may benefit from a short course of steroids No evidence of infection at this time. (5) Hypertension Current Visit: No Status: Acute Code(s): I10 - ESSENTIAL (PRIMARY) HYPERTENSION SNOMED Code(s): 50672315 Comment: - Stable (6) Sleep apnea Current Visit: No Status: Acute Code(s): G47.30 - SLEEP APNEA, UNSPECIFIED SNOMED Code(s): 33364336 Comment: - Bipap at night (7) Atrial fibrillation Current Visit: No Status: Chronic Priority: Medium Code(s): I48.91 - UNSPECIFIED ATRIAL FIBRILLATION SNOMED Code(s): 48481649 Comment: -Rate controlled. -Continue Apixaban and Metoprolol. (8) CAD (coronary artery disease) Current Visit: No Status: Chronic Priority: Medium Code(s): I25.10 - ATHSCL HEART DISEASE OF [place] CORONARY ARTERY W/O ANG PCTRS SNOMED Code(s): 03088417 Comment: - Baseline elevated troponin - Asymptomatic - No EKG changes - Continue home medications (9) CKD (chronic kidney disease) stage 3, GFR 30-59 ml/min Current Visit: No Status: Chronic Priority: Medium Code(s): N18.3 - CHRONIC KIDNEY DISEASE, STAGE 3 (MODERATE) SNOMED Code(s): 559741861 Comment: - slightly above average creatinine - will continue to monitor (10) GERD (gastroesophageal reflux disease) Current Visit: No Status: Chronic Code(s): K21.9 - GASTRO-ESOPHAGEAL REFLUX DISEASE WITHOUT ESOPHAGITIS SNOMED Code(s): 943059206 Comment: - Continue protonix. (11) Elevated troponin Current Visit: No Status: Resolved Priority: Medium Code(s): R79.89 - OTHER SPECIFIED ABNORMAL FINDINGS OF BLOOD CHEMISTRY SNOMED Code(s): 411548657 Comment: - Denies chest pain, likely related to demand ischemia from CHF - At baseline - No further work-up at this time (12) DVT prophylaxis Current Visit: No Status: Acute Priority: Medium Onset Date: 11/05/14 Code(s): EYJ3400 - SNOMED Code(s): 523543814 Comment: -Apixaban. (13) Full code status Current Visit: No Status: Acute Priority: Medium Onset Date: 11/05/14 Code(s): Z78.9 - OTHER SPECIFIED HEALTH STATUS SNOMED Code(s): 630299555
[2019-09-23 14:55] LABS: C Reactive Protein 15.64 mg/L (<8.01)
[2019-09-23] MEDS ORDERED: Vancomycin(*) 1,500 MG in NS 0.9% 250 ML* 250 ML IVPB ONE (14:59)
[2019-09-23] MEDS ORDERED: Vancomycin per Pharmacy* NOTE FOLLOW UP SCH (15:00)
[2019-09-23 15:03] LABS: Erythrocyte Sed Rate 3 mm/Hr (0-19)
[2019-09-23] MEDS: LORazepam TAB(*) 0.5 MG PO PRN ×2 (15:48→21:57)
[2019-09-23] MEDS: Atorvastatin* 10 MG TAB PO SCH (20:22)
[2019-09-23] MEDS: Albuterol 2.5 MG/3 ML NEB.SOL* (0.083%) INH PRN (20:47)
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
[2019-09-23] MEDS ORDERED: Mometasone 220 MCG MDI INH SCH (21:00)
[2019-09-24] MEDS: Albuterol 2.5 MG/3 ML NEB.SOL* (0.083%) INH PRN (03:24)
[2019-09-24 05:47] LABS: ABS Basophils 0.1 10^3/ul (0-0.2); ABS Eosinophils 0.1 10^3/ul (0-0.6); ABS Lymphocytes 0.5 10^3/ul (1.0-4.8); ABS Monocytes 0.4 10^3/ul (0-0.8); ABS Neutrophils 7.8 10^3/ul (1.5-7.7); Eosinophil % 0.9 %; Hematocrit 33 % (42-52); Hemoglobin 10.7 g/dL (14.0-18.0); Lymphocyte % 5.6 %; Mean Corpuscular HGB Conc 33 g/dL (31-36); Mean Corpuscular Hemoglobin 28 pg (27-31); Mean Corpuscular Volume 85 fL (80-94); Mean Platelet Volume 9.6 fL (7.4-10.4); Platelet Count 121 10^3/uL (150-450); Red Blood Count 3.86 10^6 /uL (4.18-5.48); Red Cell Distribution Width 19 % (10-15); White Blood Count 8.9 10^3/uL (3.5-10.8)
[2019-09-24 06:13] LABS: BUN/Creatinine Ratio 26.4 (8-20); Calcium 9.2 mg/dL (8.6-10.3); EGFR Non-African American 47.1 (>60); Potassium 3.7 mmol/L (3.5-5.0)
[2019-09-24] MEDS: Tiotropium Brom/Olodaterol MDI INH SCH (09:04)
[2019-09-24] MEDS: Mometasone 220 MCG MDI INH SCH ×2 (09:05→20:16)
--- NOTE | 2019-09-24 09:07 | PN ---
Progress Note - Progress Note Date of Service: 09/24/19 SOAP: Subjective: []Patient was seen and examined with Dr Nance today. Left elbow is only painful when bumped, no painful ROM. No feeling of fever or chills. No subjective worsening of left elbow. Objective: []Gen: nontoxic appearing, NAD LUE: minimal swelling over left olecranon, erythema has almost entirely resolved , there is no expressible drainage, there is some crusty dried discharge. Full f /e of the elbow. Assessment: []L elbow chronic infected olecranon bursitis Plan: []WBAT Soapy soaks x 20 min TID, otherwise wrap with 2x2 and gauze wrap No surgery today, poor surgical candidate per medicine and condition essentially unchanged for months. Suspect he ultimately needs I&D, bursectomy when optimized but this can be done at a later date either during this hospitalization or as an outpatient. This procedure would be possible under local/mac anesthesia. Recommend continued antibiotics to be guided by medicine/ ID. It seems he was not treated with abx outpatient, if significant improvement with soaks and abx it is possible he will not need surgery. Will follow while in house, if any change in condition of elbow or becomes medical optimized please alert orthopedics Vital Signs Temp 97.8 F 09/24/19 07:15 Pulse 53 09/24/19 07:15 Resp 18 09/24/19 07:52 BP 104/55 09/24/19 07:15 Pulse Ox 93 09/24/19 07:15 Intake & Output 09/23/19 09/24/19 09/24/19 18:59 06:59 18:59 Intake Total 1578 540 Output Total 670 425 Balance 908 115 Intake: IV Fluids 100 ABX - VANCOMYCIN 100 Oral 1478 0 NG Tube Irrigate Amount 540 Output: Urine 670 425 Other: Estimated Void Small Small # Voids 3 2 Laboratory Last Values WBC 8.9 10^3/uL (3.5-10.8) 09/24/19 05:25 RBC 3.86 10^6 /uL (4.18-5.48) L 09/24/19 05:25 Hgb 10.7 g/dL (14.0-18.0) L 09/24/19 05:25 Hct 33 % (42-52) L 09/24/19 05:25 MCV 85 fL (80-94) 09/24/19 05:25 MCH 28 pg (27-31) 09/24/19 05:25 MCHC 33 g/dL (31-36) 09/24/19 05:25 RDW 19 % (10-15) H 09/24/19 05:25 Plt Count 121 10^3/uL (150-450) L 09/24/19 05:25 MPV 9.6 fL (7.4-10.4) 09/24/19 05:25 Neut % (Auto) 87.9 % 09/24/19 05:25 Lymph % (Auto) 5.6 % 09/24/19 05:25 [place] % (Auto) 4.5 % 09/24/19 05:25 Eos % (Auto) 0.9 % 09/24/19 05:25 Baso % (Auto) 1.1 % 09/24/19 05:25 Absolute Neuts (auto) 7.8 10^3/ul (1.5-7.7) H 09/24/19 05:25 Absolute Lymphs (auto) 0.5 10^3/ul (1.0-4.8) L 09/24/19 05:25 Absolute Monos (auto) 0.4 10^3/ul (0-0.8) 09/24/19 05:25 Absolute Eos (auto) 0.1 10^3/ul (0-0.6) 09/24/19 05:25 Absolute Basos (auto) 0.1 10^3/ul (0-0.2) 09/24/19 05:25 Absolute Nucleated RBC 0.0 10^3/ul 09/24/19 05:25 Nucleated RBC % 0.0 09/24/19 05:25 ESR 3 mm/Hr (0-19) 09/23/19 05:07 Hem Pathologist Commnt 09/23/19 05:07 Sodium 141 mmol/L (135-145) 09/24/19 05:25 Potassium 3.7 mmol/L (3.5-5.0) 09/24/19 05:25 Chloride 101 mmol/L (101-111) 09/24/19 05:25 Carbon Dioxide 33 mmol/L (22-32) H 09/24/19 05:25 Anion Gap 7 mmol/L (2-11) 09/24/19 05:25 BUN 39 mg/dL (6-24) H 09/24/19 05:25 Creatinine 1.48 mg/dL (0.67-1.17) H 09/24/19 05:25 Est GFR ( Amer) 57.0 (>60) 09/24/19 05:25 Est GFR (Non-Af Amer) 47.1 (>60) 09/24/19 05:25 BUN/Creatinine Ratio 26.4 (8-20) H 09/24/19 05:25 Glucose 113 mg/dL (70-100) H 09/24/19 05:25 POC Glucose (mg/dL) 149 mg/dL (70-100) H 09/24/19 07:46 Calcium 9.2 mg/dL (8.6-10.3) 09/24/19 05:25 Total Bilirubin 1.00 mg/dL (0.2-1.0) 09/22/19 18:15 AST 19 U/L (13-39) 09/22/19 18:15 ALT 12 U/L (7-52) 09/22/19 18:15 Alkaline Phosphatase 161 U/L (34-104) H 09/22/19 18:15 Troponin I 0.05 ng/mL (<0.03) H* 09/22/19 18:15 C-Reactive Protein 15.64 mg/L (<8.01) H 09/23/19 05:07 B-Natriuretic Peptide > 1300 pg/mL (<=100) H 09/22/19 18:15 Total Protein 7.0 g/dL (6.4-8.9) 09/22/19 18:15 Albumin 4.0 g/dL (3.2-5.2) 09/22/19 18:15 Globulin 3.0 g/dL (2-4) 09/22/19 18:15 Albumin/Globulin Ratio 1.3 (1-3) 09/22/19 18:15
[2019-09-24] MEDS ORDERED: Furosemide IV* 10 MG/ML 10 ML VIAL (100 MG) ONE (09:47)
[2019-09-24] MEDS: Insulin LISPRO* 1 UNITS UNIT SUBCUT SCH ×4 (09:57→21:25)
[2019-09-24] MEDS: Insulin GLARGINE(*) 1 UNITS UNIT SUBCUT SCH ×2 (09:58→19:41)
[2019-09-24] MEDS: Gabapentin CAP(*) 300 MG PO SCH ×2 (09:59→21:24)
[2019-09-24] MEDS: Digoxin TAB* 0.125 MG PO SCH (10:00)
[2019-09-24] MEDS: Metoprolol Succinate XL TAB* 100 MG PO SCH ×2 (10:01→21:25)
[2019-09-24] MEDS: Pantoprazole TAB * 40 MG TAB PO SCH (10:01)
[2019-09-24] MEDS: Apixaban* 5 MG TAB PO SCH ×2 (10:01→21:25)
[2019-09-24] MEDS: Cholecalciferol TAB* 1000 UNITS PO SCH (10:01)
[2019-09-24] MEDS: OXcarbazepine TAB(*) 300 MG PO SCH ×2 (10:01→21:24)
[2019-09-24] MEDS: Tamsulosin CAP* 0.4 MG PO SCH (10:02)
[2019-09-24] MEDS: Sertraline* 50 MG TAB PO SCH (10:02)
[2019-09-24] MEDS: Clopidogrel TAB* 75 MG PO SCH (10:02)
[2019-09-24] MEDS: amLODIPine TAB* 5 MG PO SCH (10:03)
[2019-09-24] MEDS: NS 0.9% IV SCH (10:05)
[2019-09-24] MEDS: FUROSEMIDE IV SCH (10:05)
[2019-09-24] MEDS: Nicotine PATCH 7 MG/24 HR* PATCH TRANSDERM SCH (10:18)
[2019-09-24] MEDS: Vancomycin 1500 MG IV - x ONCE IVPB SCH ×2 (11:21)
[2019-09-24] MEDS: LORazepam TAB(*) 0.5 MG PO PRN ×3 (11:27→23:14)
[2019-09-24] MEDS ORDERED: predniSONE TAB* 20 MG PO ONE (14:16)
[2019-09-24] MEDS: Albuterol 2.5 MG/3 ML NEB.SOL* (0.083%) INH SCH ×2 (14:45→20:16)
--- NOTE | 2019-09-24 15:04 | PN ---
Subjective Date of Service: 09/24/19 Interval History: patient continues to c/o shortness of breath, - O2 was weaned to 4-5 liters NC. Reports cough and shortness not improving. Denies fever or chills. Denies chest pain. Does c/o weakness. Denies abd pin n/v/d. Family History: Unchanged from Admission Social History: Unchanged from Admission Past Medical History: Unchanged from Admission Objective Active Medications: Acetaminophen (Tylenol Tab*) 650 mg PO Q4H PRN PRN Reason: FEVER/PAIN Hydrocodone Bitart/Acetaminophen ([place] 5-325 Tab*) 1 tab PO Q3H PRN PRN Reason: PAIN - MODERATE Albuterol (Ventolin 2.5 Mg/3 Ml Neb.Jessika*) 2.5 mg INH Q2HR PRN PRN Reason: SHORTNESS OF BREATH Last Admin: 09/24/19 03:24 Dose: 2.5 mg Albuterol (Ventolin 2.5 Mg/3 Ml Neb.Jessika*) 2.5 mg INH [id number] [facility] Last Admin: 09/24/19 14:45 Dose: Not Given Amlodipine Besylate (Norvasc Tab*) 2.5 mg PO DAILY [facility] Last Admin: 09/24/19 10:03 Dose: 2.5 mg Apixaban (Eliquis*) 5 mg PO BID [facility] Last Admin: 09/24/19 10:01 Dose: 5 mg Atorvastatin Calcium (Lipitor*) 10 mg PO BEDTIME [facility] Last Admin: 09/23/19 20:22 Dose: 10 mg Cholecalciferol (Vitamin D Tab*) 2,000 units PO DAILY [facility] Last Admin: 09/24/19 10:01 Dose: 2,000 units Clopidogrel Bisulfate (Plavix Tab*) 75 mg PO DAILY [facility] Last Admin: 09/24/19 10:02 Dose: 75 mg Digoxin (Lanoxin Tab*) 0.125 mg PO DAILY [facility] Last Admin: 09/24/19 10:00 Dose: 0.125 mg Furosemide (Lasix Tab*) 80 mg PO 1700 [facility] Furosemide (Lasix Tab*) 100 mg PO DAILY [facility] Gabapentin (Neurontin Cap(*)) 600 mg PO BID [facility] Last Admin: 09/24/19 09:59 Dose: 600 mg Vancomycin HCl 1,500 mg/ (Sodium Chloride) 250 mls @ 166.667 mls/hr IVPB Q24H [facility] Last Admin: 09/24/19 11:21 Dose: 166.667 mls/hr Insulin Glargine (Lantus(*)) 14 units SUBCUT QPM [facility] Last Admin: 09/23/19 17:44 Dose: 14 unit Insulin Glargine (Lantus(*)) 44 units SUBCUT QAM [facility] Last Admin: 09/24/19 09:58 Dose: 44 units Insulin Human Lispro (Humalog*) 0 units SUBCUT ACHS [facility]; Protocol Last Admin: 09/24/19 12:37 Dose: 6 units Loperamide HCl (Imodium Cap*) 2 mg PO Q6H PRN PRN Reason: DIARRHEA Lorazepam (Ativan Tab(*)) 0.5 mg PO TID PRN PRN Reason: ANXIETY Last Admin: 09/24/19 11:27 Dose: 0.5 mg Metoprolol Succinate (Toprol Xl Tab*) 100 mg PO BID [facility] Last Admin: 09/24/19 10:01 Dose: 100 mg Mometasone Furoate (Asmanex 220 Mcg Mdi *) 1 puff INH BID [facility]; Protocol Last Admin: 09/24/19 09:05 Dose: 1 puff Nicotine (Nicotine Patch 7 Mg/24 Hr*) 1 patch TRANSDERM DAILY [facility] Last Admin: 09/24/19 10:18 Dose: 1 patch Oxcarbazepine (Trileptal Tab(*)) 300 mg PO BID [facility] Last Admin: 09/24/19 10:01 Dose: 300 mg Pantoprazole Sodium (Protonix Tab*) 40 mg PO DAILY [facility] Last Admin: 09/24/19 10:01 Dose: 40 mg Pharmacy Consult (Vancomycin Per Pharmacy*) 1 note FOLLOW UP .VANC PER PHARMACY [facility]; Protocol Pharmacy Profile Note (Vancomycin Trough Check) 1 note FOLLOW UP 0830 ONE Stop: 09/26/19 08:31 Sertraline HCl (Zoloft*) 50 mg PO DAILY [facility] Last Admin: 09/24/19 10:02 Dose: 50 mg Tamsulosin HCl (Flomax Cap*) 0.4 mg PO DAILY [facility] Last Admin: 09/24/19 10:02 Dose: 0.4 mg Tiotropium [place]/Olodaterol (Stiolto Respimat Inh [place] (60 Puff)) 2 puff INH DAILY [facility] Last Admin: 09/24/19 09:04 Dose: 2 puff Vital Signs - 8 hr 09/24/19 09/24/19 09/24/19 07:15 07:52 09:08 Temperature 97.8 F Pulse Rate 53 75 Respiratory 18 18 16 Rate Blood Pressure 104/55 (mmHg) O2 Sat by Pulse 93 93 Oximetry 09/24/19 09/24/19 09/24/19 09:59 10:00 11:15 Temperature 97.7 F Pulse Rate 73 63 Respiratory 16 16 Rate Blood Pressure 132/39 (mmHg) O2 Sat by Pulse 96 Oximetry 09/24/19 09/24/19 09/24/19 11:27 14:48 14:49 Temperature Pulse Rate Respiratory 19 18 17 Rate Blood Pressure (mmHg) O2 Sat by Pulse Oximetry Oxygen Devices in Use Now: Nasal Cannula Appearance: appears comfortable, moderate respiratory distress with exertion Eyes: No Scleral Icterus Ears/Nose/Mouth/Throat: Clear Oropharnyx, Mucous Membranes Moist Neck: NL Appearance and Movements; NL JVP, Trachea Midline Respiratory: Symmetrical Chest Expansion and Respiratory Effort, - - diminished t/o bilat , occasional moist cough Cardiovascular: NL Sounds; No Murmurs; No JVD, No Edema Abdominal: NL Sounds; No Tenderness; No Distention Extremities: No Edema, No Clubbing, Cyanosis Skin: No Rash or Ulcers Neurological: Alert and Oriented x 3 Nutrition: Taking PO's Result Diagrams: 09/24/19 05:25 09/24/19 05:25 Additional Lab and Data: Lab Results 09/22/19 09/22/19 09/22/19 Range/Units 18:15 18:15 18:15 WBC 8.6 (3.5-10.8) 10^3/uL RBC 4.35 (4.18-5.48) 10^6 /uL Hgb 11.9 L (14.0-18.0) g/dL Hct 38 L (42-52) % MCV 87 (80-94) fL MCH 27 (27-31) pg MCHC 32 (31-36) g/dL RDW 19 H (10-15) % Plt Count 166 (150-450) 10^3/uL MPV 10.0 (7.4-10.4) fL Neut % (Auto) 90.0 % Lymph % (Auto) 5.0 % Bailey % (Auto) 3.7 % Eos % (Auto) 0.5 % Baso % (Auto) 0.8 % Absolute Neuts (auto) 7.8 H (1.5-7.7) 10^3/ul Absolute Lymphs (auto) 0.4 L (1.0-4.8) 10^3/ul Absolute Monos (auto) 0.3 (0-0.8) 10^3/ul Absolute Eos (auto) 0.0 (0-0.6) 10^3/ul Absolute Basos (auto) 0.1 (0-0.2) 10^3/ul Absolute Nucleated RBC 0.0 10^3/ul Nucleated RBC % 0.1 Sodium 136 (135-145) mmol/L Potassium 4.8 (3.5-5.0) mmol/L Chloride 95 L (101-111) mmol/L Carbon Dioxide 28 (22-32) mmol/L Anion Gap 13 H (2-11) mmol/L BUN 30 H (6-24) mg/dL Creatinine 1.64 H (0.67-1.17) mg/dL Est GFR ( Amer) 50.7 (>60) Est GFR (Non-Af Amer) 41.9 (>60) BUN/Creatinine Ratio 18.3 (8-20) Glucose 528 H* (70-100) mg/dL Calcium 9.3 (8.6-10.3) mg/dL Total Bilirubin 1.00 (0.2-1.0) mg/dL AST 19 (13-39) U/L ALT 12 (7-52) U/L Alkaline Phosphatase 161 H (34-104) U/L Troponin I 0.05 H* (<0.03) ng/mL B-Natriuretic Peptide > 1300 H (<=100) pg/mL Total Protein 7.0 (6.4-8.9) g/dL Albumin 4.0 (3.2-5.2) g/dL Globulin 3.0 (2-4) g/dL Albumin/Globulin Ratio 1.3 (1-3) Microbiology and Other Data: Microbiology 09/23/19 05:56 Gram Stain - Final Elbow Left Assess/Plan/Problems-Billing Assessment: Mr. Berrios is a 68 y.o male with a past medical hx of systolic CHF, HTN, DM type 2, afib, JOSIAH, GERD who presented to the ER with shortness of breath found to have an exacerbation of CHF. - Patient Problems (1) Acute and chronic respiratory failure with hypoxia Current Visit: No Status: Acute Code(s): J96.21 - ACUTE AND CHRONIC RESPIRATORY FAILURE WITH HYPOXIA SNOMED Code(s): 56517780 Comment: -Secondary to CHF exacerbation. -Initially required BIPAP, transitioned to NC this morning -Will continue daily weights, Strict I/O's -Lasix IV - will transition to PO lasix - will conitnue wean O2 as able back to baseline (2) Acute on chronic systolic heart failure Current Visit: No Status: Acute Code(s): I50.23 - ACUTE ON CHRONIC SYSTOLIC (CONGESTIVE) HEART FAILURE SNOMED Code(s): 700638299 Comment: - Echo done in showed no significant changes from 2017- EF 40-45% - IV Lasix 100 mg BID - will transition to PO lasix starting today- patient appears euvolemic - continues to require - o2 via NC at 4-5 liters (3) Infection of left elbow Current Visit: Yes Status: Acute Code(s): M00.9 - PYOGENIC ARTHRITIS, UNSPECIFIED SNOMED Code(s): 934925528 Comment: - Ortho consulted- recommended antibiotic therapy - may require surgery in the future - wound culture with Staph - sensitivity pending blood cultures -pending - Will continue Vancomycin for now - patient is currently a poor canidate for surgery d/t hypoxic respiratory failure, and chronic medical conditions (4) COPD (chronic obstructive pulmonary disease) Current Visit: No Status: Chronic Priority: Medium Code(s): J44.9 - CHRONIC OBSTRUCTIVE PULMONARY DISEASE, UNSPECIFIED SNOMED Code(s): 78547443 Comment: - Uses supplemental O2 at home 3.5liters at baseline- requiring 4-5 liters today - will continue wean as able - mild COPD exacerbation- continue to c/o shortness of breath - this is likely a combination of CHF and COPD exacberation contributing to his shortness of breath. Patient does report increase cough ,shortness of breath and sputum production.- Will start prednisone 40 mg po daily No evidence of infection at this time. (5) Hypertension Current Visit: No Status: Acute Code(s): I10 - ESSENTIAL (PRIMARY) HYPERTENSION SNOMED Code(s): 92870645 Comment: - Stable (6) Sleep apnea Current Visit: No Status: Acute Code(s): G47.30 - SLEEP APNEA, UNSPECIFIED SNOMED Code(s): 07535738 Comment: - Bipap at night (7) Atrial fibrillation Current Visit: No Status: Chronic Priority: Medium Code(s): I48.91 - UNSPECIFIED ATRIAL FIBRILLATION SNOMED Code(s): 95848569 Comment: -Rate controlled. -Continue Apixaban and Metoprolol. (8) CAD (coronary artery disease) Current Visit: No Status: Chronic Priority: Medium Code(s): I25.10 - ATHSCL HEART DISEASE OF [place] CORONARY ARTERY W/O ANG PCTRS SNOMED Code(s): 41232941 Comment: - Baseline elevated troponin - Asymptomatic - No EKG changes - Continue home medications (9) CKD (chronic kidney disease) stage 3, GFR 30-59 ml/min Current Visit: No Status: Chronic Priority: Medium Code(s): N18.3 - CHRONIC KIDNEY DISEASE, STAGE 3 (MODERATE) SNOMED Code(s): 513527721 Comment: - slightly above average creatinine - will continue to monitor (10) GERD (gastroesophageal reflux disease) Current Visit: No Status: Chronic Code(s): K21.9 - GASTRO-ESOPHAGEAL REFLUX DISEASE WITHOUT ESOPHAGITIS SNOMED Code(s): 604956466 Comment: - Continue protonix. (11) Elevated troponin Current Visit: No Status: Resolved Priority: Medium Code(s): R79.89 - OTHER SPECIFIED ABNORMAL FINDINGS OF BLOOD CHEMISTRY SNOMED Code(s): 097543727 Comment: - Denies chest pain, likely related to demand ischemia from CHF - At baseline - No further work-up at this time (12) DVT prophylaxis Current Visit: No Status: Acute Priority: Medium Onset Date: 11/05/14 Code(s): DJE3402 - SNOMED Code(s): 972934992 Comment: -Apixaban. (13) Full code status Current Visit: No Status: Acute Priority: Medium Onset Date: 11/05/14 Code(s): Z78.9 - OTHER SPECIFIED HEALTH STATUS SNOMED Code(s): 526265990
[2019-09-24] MEDS: HYDROcodone/ACETAMIN 5-325 MG* 1 TAB PO PRN ×2 (16:52→21:22)
[2019-09-24] MEDS: Furosemide TAB* 40 MG PO SCH (17:35)
[2019-09-24] MEDS ORDERED: Insulin LISPRO* 1 UNITS UNIT SUBCUT ONE (21:00)
[2019-09-24] MEDS: Atorvastatin* 10 MG TAB PO SCH (21:25)
[2019-09-25] MEDS: Albuterol 2.5 MG/3 ML NEB.SOL* (0.083%) INH SCH ×4 (01:38→21:16)
[2019-09-25 06:52] LABS: Hematocrit 34 % (42-52); Hemoglobin 11.1 g/dL (14.0-18.0); Mean Corpuscular HGB Conc 33 g/dL (31-36); Mean Corpuscular Hemoglobin 28 pg (27-31); Mean Corpuscular Volume 85 fL (80-94); Mean Platelet Volume 9.4 fL (7.4-10.4); Platelet Count 134 10^3/uL (150-450); Red Blood Count 3.96 10^6 /uL (4.18-5.48); Red Cell Distribution Width 18 % (10-15); White Blood Count 8.7 10^3/uL (3.5-10.8)
[2019-09-25 07:09] LABS: BUN/Creatinine Ratio 29.5 (8-20); Calcium 9.3 mg/dL (8.6-10.3); EGFR African American 56.6 (>60); EGFR Non-African American 46.8 (>60); Potassium 4.1 mmol/L (3.5-5.0)
[2019-09-25] MEDS: Mometasone 220 MCG MDI INH SCH ×2 (08:00→21:16)
[2019-09-25] MEDS: Tiotropium Brom/Olodaterol MDI INH SCH (08:00)
[2019-09-25] MEDS: Cholecalciferol TAB* 1000 UNITS PO SCH (10:26)
[2019-09-25] MEDS: Furosemide TAB* 40 MG PO SCH ×2 (10:30→17:50)
[2019-09-25] MEDS: Clopidogrel TAB* 75 MG PO SCH (11:16)
[2019-09-25] MEDS: Metoprolol Succinate XL TAB* 100 MG PO SCH ×2 (11:16→23:36)
[2019-09-25] MEDS: LORazepam TAB(*) 0.5 MG PO PRN ×2 (11:17→23:34)
[2019-09-25] MEDS: Digoxin TAB* 0.125 MG PO SCH (11:18)
[2019-09-25] MEDS: Gabapentin CAP(*) 300 MG PO SCH ×2 (11:19→21:24)
[2019-09-25] MEDS: OXcarbazepine TAB(*) 300 MG PO SCH ×2 (11:21→21:25)
[2019-09-25] MEDS: Apixaban* 5 MG TAB PO SCH ×2 (11:22→21:24)
[2019-09-25] MEDS: Pantoprazole TAB * 40 MG TAB PO SCH (11:22)
[2019-09-25] MEDS: Insulin LISPRO* 1 UNITS UNIT SUBCUT SCH ×4 (11:23→23:35)
[2019-09-25] MEDS: Insulin GLARGINE(*) 1 UNITS UNIT SUBCUT SCH ×2 (11:23→17:55)
[2019-09-25] MEDS: amLODIPine TAB* 5 MG PO SCH (11:23)
[2019-09-25] MEDS: Nicotine PATCH 7 MG/24 HR* PATCH TRANSDERM SCH (11:24)
[2019-09-25] MEDS: Tamsulosin CAP* 0.4 MG PO SCH (11:24)
[2019-09-25] MEDS: Sertraline* 50 MG TAB PO SCH (11:32)
[2019-09-25] MEDS: Vancomycin 1500 MG IV - x ONCE IVPB SCH ×2 (12:12)
--- NOTE | 2019-09-25 12:38 | PN ---
Progress Note - Progress Note Date of Service: 09/25/19 SOAP: Subjective: Patient was seen in bed sleeping with BiPap on. Left elbow non-painful with full passive ROM. No feeling of fever or chills. No subjective worsening of left elbow according to family. Elbow was not covered with dressing today. There appears to have been respiratory concerns overnight and patient's family states he did not keep bipap on. states she had been talking to a provider about a possible transfer to [place]. Objective: []Gen: nontoxic appearing, NAD LUE: minimal swelling over left olecranon, erythema has almost entirely resolved , there is no expressible drainage, there is some crusty dried discharge. Full f /e of the elbow. Assessment: L elbow chronic infected olecranon bursitis Plan: WBAT Soapy soaks x 20 min TID, otherwise wrap with 2x2 and gauze wrap Patient is a poor surgical candidate per medicine and condition essentially unchanged for months. Suspect he ultimately needs I&D, bursectomy when optimized but this can be done at a later date either during this hospitalization or as an outpatient. This procedure would be possible under local/mac anesthesia. Recommend continued antibiotics to be guided by medicine/ ID. It seems he was not treated with abx outpatient, if significant improvement with soaks and abx it is possible he will not need surgery. Will follow while in house, if any change in condition of elbow or becomes medical optimized please alert orthopedics Vital Signs 09/24/19 09/24/19 09/24/19 14:48 14:49 15:30 Temperature 96.8 F Pulse Rate 70 Respiratory 18 17 22 Rate Blood Pressure 125/51 (mmHg) O2 Sat by Pulse 98 Oximetry 09/24/19 09/24/19 09/24/19 16:51 16:52 19:15 Temperature 97.1 F Pulse Rate 79 Respiratory 20 22 16 Rate Blood Pressure 128/73 (mmHg) O2 Sat by Pulse 91 Oximetry 09/24/19 09/24/19 09/24/19 20:00 20:38 20:40 Temperature Pulse Rate Respiratory 16 20 20 Rate Blood Pressure (mmHg) O2 Sat by Pulse Oximetry 09/24/19 09/24/19 09/24/19 21:22 21:24 23:14 Temperature Pulse Rate Respiratory 20 20 18 Rate Blood Pressure (mmHg) O2 Sat by Pulse Oximetry 09/24/19 09/25/19 09/25/19 23:15 01:38 03:15 Temperature 98.4 F 98.3 F Pulse Rate 81 77 80 Respiratory 16 20 16 Rate Blood Pressure 110/28 152/60 (mmHg) O2 Sat by Pulse 99 95 Oximetry 09/25/19 09/25/19 09/25/19 07:29 07:45 07:50 Temperature Pulse Rate Respiratory 20 Rate Blood Pressure 134/64 (mmHg) O2 Sat by Pulse 88 95 Oximetry 09/25/19 09/25/19 09/25/19 07:52 09:56 11:17 Temperature Pulse Rate 83 Respiratory 24 18 20 Rate Blood Pressure (mmHg) O2 Sat by Pulse 98 Oximetry 09/25/19 09/25/19 11:18 11:19 Temperature Pulse Rate 78 Respiratory 18 Rate Blood Pressure (mmHg) O2 Sat by Pulse Oximetry Laboratory Last Values WBC 8.7 10^3/uL (3.5-10.8) 09/25/19 06:41 RBC 3.96 10^6 /uL (4.18-5.48) L 09/25/19 06:41 Hgb 11.1 g/dL (14.0-18.0) L 09/25/19 06:41 Hct 34 % (42-52) L 09/25/19 06:41 MCV 85 fL (80-94) 09/25/19 06:41 MCH 28 pg (27-31) 09/25/19 06:41 MCHC 33 g/dL (31-36) 09/25/19 06:41 RDW 18 % (10-15) H 09/25/19 06:41 Plt Count 134 10^3/uL (150-450) L 09/25/19 06:41 MPV 9.4 fL (7.4-10.4) 09/25/19 06:41 Neut % (Auto) 87.9 % 09/24/19 05:25 Lymph % (Auto) 5.6 % 09/24/19 05:25 [place] % (Auto) 4.5 % 09/24/19 05:25 Eos % (Auto) 0.9 % 09/24/19 05:25 Baso % (Auto) 1.1 % 09/24/19 05:25 Absolute Neuts (auto) 7.8 10^3/ul (1.5-7.7) H 09/24/19 05:25 Absolute Lymphs (auto) 0.5 10^3/ul (1.0-4.8) L 09/24/19 05:25 Absolute Monos (auto) 0.4 10^3/ul (0-0.8) 09/24/19 05:25 Absolute Eos (auto) 0.1 10^3/ul (0-0.6) 09/24/19 05:25 Absolute Basos (auto) 0.1 10^3/ul (0-0.2) 09/24/19 05:25 Absolute Nucleated RBC 0.0 10^3/ul 09/24/19 05:25 Nucleated RBC % 0.0 09/24/19 05:25 ESR 3 mm/Hr (0-19) 09/23/19 05:07 Hem Pathologist Commnt 09/23/19 05:07 Patient Temperature Not Reportable 09/25/19 12:12 ABG pH 7.43 (7.35-7.45) 09/25/19 12:12 ABG pH (Temp Correct) Not Reportable 09/25/19 12:12 ABG pCO2 46 mmHg (35-45) H 09/25/19 12:12 ABG pCO2 (Temp Corrct Not Reportable 09/25/19 12:12 ABG pO2 73 mmHg (80-100) L 09/25/19 12:12 ABG pO2 (Temp Correct Not Reportable 09/25/19 12:12 ABG HCO3 29.0 mmol/L (19-31) 09/25/19 12:12 ABG O2 Saturation 96.4 % (94.0-98.0) 09/25/19 12:12 ABG Base Excess 5.3 mmol/L (-2.0-2.0) H 09/25/19 12:12 Respiration Rate Not Reportable 09/25/19 12:12 O2 Delivery Device 5lpm nc 09/25/19 12:12 Ventilator Type Not Reportable 09/25/19 12:12 Vent Mode Not Reportable 09/25/19 12:12 FiO2 Not Reportable 09/25/19 12:12 Inspiratory Time Not Reportable 09/25/19 12:12 PEEP Not Reportable 09/25/19 12:12 Pressure Support Not Reportable 09/25/19 12:12 Pressure Control Not Reportable 09/25/19 12:12 EPAP Not Reportable 09/25/19 12:12 IPAP Not Reportable 09/25/19 12:12 BiPAP Not Reportable 09/25/19 12:12 Sodium 138 mmol/L (135-145) 09/25/19 06:41 Potassium 4.1 mmol/L (3.5-5.0) 09/25/19 06:41 Chloride 100 mmol/L (101-111) L 09/25/19 06:41 Carbon Dioxide 31 mmol/L (22-32) 09/25/19 06:41 Anion Gap 7 mmol/L (2-11) 09/25/19 06:41 BUN 44 mg/dL (6-24) H 09/25/19 06:41 Creatinine 1.49 mg/dL (0.67-1.17) H 09/25/19 06:41 Est GFR ( Amer) 56.6 (>60) 09/25/19 06:41 Est GFR (Non-Af Amer) 46.8 (>60) 09/25/19 06:41 BUN/Creatinine Ratio 29.5 (8-20) H 09/25/19 06:41 Glucose 182 mg/dL (70-100) H 09/25/19 06:41 POC Glucose (mg/dL) 1 mg/dL (70-100) L* 09/25/19 10:10 Glucose Meter Confirm 410 mg/dL (70-100) H 09/24/19 21:06 Calcium 9.3 mg/dL (8.6-10.3) 09/25/19 06:41 Total Bilirubin 1.00 mg/dL (0.2-1.0) 09/22/19 18:15 AST 19 U/L (13-39) 09/22/19 18:15 ALT 12 U/L (7-52) 09/22/19 18:15 Alkaline Phosphatase 161 U/L (34-104) H 09/22/19 18:15 Troponin I 0.05 ng/mL (<0.03) H* 09/22/19 18:15 C-Reactive Protein 15.64 mg/L (<8.01) H 09/23/19 05:07 B-Natriuretic Peptide > 1300 pg/mL (<=100) H 09/22/19 18:15 Total Protein 7.0 g/dL (6.4-8.9) 09/22/19 18:15 Albumin 4.0 g/dL (3.2-5.2) 09/22/19 18:15 Globulin 3.0 g/dL (2-4) 09/22/19 18:15 Albumin/Globulin Ratio 1.3 (1-3) 09/22/19 18:15
[2019-09-25] MEDS: HYDROcodone/ACETAMIN 5-325 MG* 1 TAB PO PRN ×2 (12:45→17:02)
[2019-09-25] MEDS: predniSONE TAB* 20 MG PO SCH (13:05)
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
--- NOTE | 2019-09-25 17:47 | PN ---
Subjective Date of Service: 09/25/19 Interval History: Patient with lethargy this AM - ABG obtained - at baseline Patient and family report that he did not sleep well last night. reports that the patient called her at 3 AM looking for her. Patient reevaluated approx 1 hour later. Patient was sitting on the edge of the bed, eating , respirations easy and even. Reports breathing is improved. Denies chest pain or shortness of breath. Denies abd n/v/d. titrating O2 as able to baseline 3.5 liters Family History: Unchanged from Admission Social History: Unchanged from Admission Past Medical History: Unchanged from Admission Objective Active Medications: Acetaminophen (Tylenol Tab*) 650 mg PO Q4H PRN PRN Reason: FEVER/PAIN Hydrocodone Bitart/Acetaminophen ([place] 5-325 Tab*) 1 tab PO Q3H PRN PRN Reason: PAIN - MODERATE Last Admin: 09/25/19 17:02 Dose: 1 tab Albuterol (Ventolin 2.5 Mg/3 Ml Neb.Jessika*) 2.5 mg INH Q2HR PRN PRN Reason: SHORTNESS OF BREATH Last Admin: 09/24/19 03:24 Dose: 2.5 mg Albuterol (Ventolin 2.5 Mg/3 Ml Neb.Jessika*) 2.5 mg INH [id number] AWAKE [facility] Last Admin: 09/25/19 12:22 Dose: Not Given Amlodipine Besylate (Norvasc Tab*) 2.5 mg PO DAILY [facility] Last Admin: 09/25/19 11:23 Dose: 2.5 mg Apixaban (Eliquis*) 5 mg PO BID [facility] Last Admin: 09/25/19 11:22 Dose: 5 mg Atorvastatin Calcium (Lipitor*) 10 mg PO BEDTIME [facility] Last Admin: 09/24/19 21:25 Dose: 10 mg Cholecalciferol (Vitamin D Tab*) 2,000 units PO DAILY [facility] Last Admin: 09/25/19 10:26 Dose: 2,000 units Clopidogrel Bisulfate (Plavix Tab*) 75 mg PO DAILY [facility] Last Admin: 09/25/19 11:16 Dose: 75 mg Digoxin (Lanoxin Tab*) 0.125 mg PO DAILY [facility] Last Admin: 09/25/19 11:18 Dose: 0.125 mg Furosemide (Lasix Tab*) 80 mg PO 1700 [facility] Last Admin: 09/24/19 17:35 Dose: 80 mg Furosemide (Lasix Tab*) 100 mg PO DAILY [facility] Last Admin: 09/25/19 10:30 Dose: 100 mg Gabapentin (Neurontin Cap(*)) 600 mg PO BID [facility] Last Admin: 09/25/19 11:19 Dose: 600 mg Cefazolin Sodium/Dextrose (Kefzol 2 Gm Premix In Ors(*)) 2 gm in 50 mls @ 100 mls/hr IVPB Q8H [facility] Insulin Glargine (Lantus(*)) 14 units SUBCUT QPM [facility] Last Admin: 09/24/19 19:41 Dose: 14 unit Insulin Glargine (Lantus(*)) 44 units SUBCUT QAM [facility] Last Admin: 09/25/19 11:23 Dose: Not Given Insulin Human Lispro (Humalog*) 0 units SUBCUT ACHS [facility]; Protocol Last Admin: 09/25/19 13:05 Dose: 1 units Loperamide HCl (Imodium Cap*) 2 mg PO Q6H PRN PRN Reason: DIARRHEA Lorazepam (Ativan Tab(*)) 0.5 mg PO TID PRN PRN Reason: ANXIETY Last Admin: 09/25/19 11:17 Dose: 0.5 mg Metoprolol Succinate (Toprol Xl Tab*) 100 mg PO BID [facility] Last Admin: 09/25/19 11:16 Dose: 100 mg Mometasone Furoate (Asmanex 220 Mcg Mdi *) 1 puff INH BID [facility]; Protocol Last Admin: 09/25/19 08:00 Dose: Not Given Nicotine (Nicotine Patch 7 Mg/24 Hr*) 1 patch TRANSDERM DAILY [facility] Last Admin: 09/25/19 11:24 Dose: 1 patch Oxcarbazepine (Trileptal Tab(*)) 300 mg PO BID [facility] Last Admin: 09/25/19 11:21 Dose: 300 mg Pantoprazole Sodium (Protonix Tab*) 40 mg PO DAILY [facility] Last Admin: 09/25/19 11:22 Dose: 40 mg Prednisone (Deltasone Tab*) 40 mg PO DAILY [facility] Stop: 09/28/19 09:01 Last Admin: 09/25/19 13:05 Dose: 40 mg Sertraline HCl (Zoloft*) 50 mg PO DAILY [facility] Last Admin: 09/25/19 11:32 Dose: 50 mg Tamsulosin HCl (Flomax Cap*) 0.4 mg PO DAILY [facility] Last Admin: 09/25/19 11:24 Dose: 0.4 mg Tiotropium [place]/Olodaterol (Stiolto Respimat Inh [place] (60 Puff)) 2 puff INH DAILY [facility] Last Admin: 09/25/19 08:00 Dose: Not Given Vital Signs - 8 hr 09/25/19 09/25/19 09/25/19 09:56 11:17 11:18 Temperature Pulse Rate 78 Respiratory 18 20 Rate Blood Pressure (mmHg) O2 Sat by Pulse Oximetry 09/25/19 09/25/19 09/25/19 11:19 11:33 12:45 Temperature 98.1 F Pulse Rate Respiratory 18 20 18 Rate Blood Pressure 104/50 (mmHg) O2 Sat by Pulse 99 Oximetry 09/25/19 09/25/19 09/25/19 13:55 15:12 15:58 Temperature 97.6 F Pulse Rate 76 Respiratory 20 20 18 Rate Blood Pressure 92/58 (mmHg) O2 Sat by Pulse 95 Oximetry 09/25/19 17:02 Temperature Pulse Rate Respiratory 24 Rate Blood Pressure (mmHg) O2 Sat by Pulse Oximetry Oxygen Devices in Use Now: Nasal Cannula Appearance: drowsy this AM , repeat assessment alert and oriented x 3 , no acute distress Eyes: No Scleral Icterus Ears/Nose/Mouth/Throat: Clear Oropharnyx, Mucous Membranes Moist Neck: NL Appearance and Movements; NL JVP, Trachea Midline Respiratory: Symmetrical Chest Expansion and Respiratory Effort, Clear to Auscultation, - - slightly diminished t/o bilat Cardiovascular: NL Sounds; No Murmurs; No JVD, No Edema Extremities: No Edema, No Clubbing, Cyanosis, - - left elbow with redness and drainage Skin: No Rash or Ulcers Neurological: Alert and Oriented x 3 Nutrition: Taking PO's Result Diagrams: 09/25/19 06:41 09/25/19 06:41 Additional Lab and Data: Lab Results 09/22/19 09/22/19 09/22/19 Range/Units 18:15 18:15 18:15 WBC 8.6 (3.5-10.8) 10^3/uL RBC 4.35 (4.18-5.48) 10^6 /uL Hgb 11.9 L (14.0-18.0) g/dL Hct 38 L (42-52) % MCV 87 (80-94) fL MCH 27 (27-31) pg MCHC 32 (31-36) g/dL RDW 19 H (10-15) % Plt Count 166 (150-450) 10^3/uL MPV 10.0 (7.4-10.4) fL Neut % (Auto) 90.0 % Lymph % (Auto) 5.0 % [place] % (Auto) 3.7 % Eos % (Auto) 0.5 % Baso % (Auto) 0.8 % Absolute Neuts (auto) 7.8 H (1.5-7.7) 10^3/ul Absolute Lymphs (auto) 0.4 L (1.0-4.8) 10^3/ul Absolute Monos (auto) 0.3 (0-0.8) 10^3/ul Absolute Eos (auto) 0.0 (0-0.6) 10^3/ul Absolute Basos (auto) 0.1 (0-0.2) 10^3/ul Absolute Nucleated RBC 0.0 10^3/ul Nucleated RBC % 0.1 Sodium 136 (135-145) mmol/L Potassium 4.8 (3.5-5.0) mmol/L Chloride 95 L (101-111) mmol/L Carbon Dioxide 28 (22-32) mmol/L Anion Gap 13 H (2-11) mmol/L BUN 30 H (6-24) mg/dL Creatinine 1.64 H (0.67-1.17) mg/dL Est GFR ( Amer) 50.7 (>60) Est GFR (Non-Af Amer) 41.9 (>60) BUN/Creatinine Ratio 18.3 (8-20) Glucose 528 H* (70-100) mg/dL Calcium 9.3 (8.6-10.3) mg/dL Total Bilirubin 1.00 (0.2-1.0) mg/dL AST 19 (13-39) U/L ALT 12 (7-52) U/L Alkaline Phosphatase 161 H (34-104) U/L Troponin I 0.05 H* (<0.03) ng/mL B-Natriuretic Peptide > 1300 H (<=100) pg/mL Total Protein 7.0 (6.4-8.9) g/dL Albumin 4.0 (3.2-5.2) g/dL Globulin 3.0 (2-4) g/dL Albumin/Globulin Ratio 1.3 (1-3) Microbiology and Other Data: Microbiology 09/23/19 05:56 Gram Stain - Final Elbow Left Assess/Plan/Problems-Billing Assessment: Mr. Berrios is a 68 y.o male with a past medical hx of systolic CHF, HTN, DM type 2, afib, JOSIAH, GERD who presented to the ER with shortness of breath found to have an exacerbation of CHF. - Patient Problems (1) Acute and chronic respiratory failure with hypoxia Current Visit: No Status: Acute Code(s): J96.21 - ACUTE AND CHRONIC RESPIRATORY FAILURE WITH HYPOXIA SNOMED Code(s): 16097049 Comment: -Secondary to CHF exacerbation. -Initially required BIPAP, transitioned to NC -Will continue daily weights, Strict I/O's -Lasix IV on admission - transitioned to PO lasix - will conitnue wean O2 as able back to baseline added prednisone (2) Acute on chronic systolic heart failure Current Visit: No Status: Acute Code(s): I50.23 - ACUTE ON CHRONIC SYSTOLIC (CONGESTIVE) HEART FAILURE SNOMED Code(s): 602552663 Comment: - Echo done in showed no significant changes from 2017- EF 40-45% - IV Lasix 100 mg BID - transitioned to PO lasix - patient appears euvolemic - continues to require - o2 via NC at 4-5 liters (3) Infection of left elbow Current Visit: Yes Status: Acute Code(s): M00.9 - PYOGENIC ARTHRITIS, UNSPECIFIED SNOMED Code(s): 634189063 Comment: - Ortho consulted- recommended antibiotic therapy - may require surgery in the future - wound culture with Staph - sensitivity pending blood cultures -no growth ID consulted - antibiotics changed to Ancef 2 grams Q 8 hours will need IV antibiotic until considerable improvement, recommeded MRI of the Elbow patient refused - will order CT - patient is currently a poor canidate for surgery d/t hypoxic respiratory failure, and chronic medical conditions (4) COPD (chronic obstructive pulmonary disease) Current Visit: No Status: Chronic Priority: Medium Code(s): J44.9 - CHRONIC OBSTRUCTIVE PULMONARY DISEASE, UNSPECIFIED SNOMED Code(s): 76300679 Comment: - Uses supplemental O2 at home 3.5liters at baseline- requiring 4-5 liters today - will continue wean as able - mild COPD exacerbation- continue to c/o shortness of breath - this is likely a combination of CHF and COPD exacberation contributing to his shortness of breath. Patient does report increase cough ,shortness of breath and sputum production.- Will start prednisone 40 mg po daily No evidence of infection at this time. (5) Hypertension Current Visit: No Status: Acute Code(s): I10 - ESSENTIAL (PRIMARY) HYPERTENSION SNOMED Code(s): 48813080 Comment: - Stable (6) Sleep apnea Current Visit: No Status: Acute Code(s): G47.30 - SLEEP APNEA, UNSPECIFIED SNOMED Code(s): 52255591 Comment: - Bipap at night (7) Atrial fibrillation Current Visit: No Status: Chronic Priority: Medium Code(s): I48.91 - UNSPECIFIED ATRIAL FIBRILLATION SNOMED Code(s): 38426411 Comment: -Rate controlled. -Continue Apixaban and Metoprolol. (8) CAD (coronary artery disease) Current Visit: No Status: Chronic Priority: Medium Code(s): I25.10 - ATHSCL HEART DISEASE OF [place] CORONARY ARTERY W/O ANG PCTRS SNOMED Code(s): 74791394 Comment: - Baseline elevated troponin - Asymptomatic - No EKG changes - Continue home medications (9) CKD (chronic kidney disease) stage 3, GFR 30-59 ml/min Current Visit: No Status: Chronic Priority: Medium Code(s): N18.3 - CHRONIC KIDNEY DISEASE, STAGE 3 (MODERATE) SNOMED Code(s): 823411881 Comment: - slightly above average creatinine - will continue to monitor (10) GERD (gastroesophageal reflux disease) Current Visit: No Status: Chronic Code(s): K21.9 - GASTRO-ESOPHAGEAL REFLUX DISEASE WITHOUT ESOPHAGITIS SNOMED Code(s): 760282442 Comment: - Continue protonix. (11) Elevated troponin Current Visit: No Status: Resolved Priority: Medium Code(s): R79.89 - OTHER SPECIFIED ABNORMAL FINDINGS OF BLOOD CHEMISTRY SNOMED Code(s): 106447371 Comment: - Denies chest pain, likely related to demand ischemia from CHF - At baseline - No further work-up at this time (12) DVT prophylaxis Current Visit: No Status: Acute Priority: Medium Onset Date: 11/05/14 Code(s): MYF8752 - SNOMED Code(s): 803045849 Comment: -Apixaban. (13) Full code status Current Visit: No Status: Acute Priority: Medium Onset Date: 11/05/14 Code(s): Z78.9 - OTHER SPECIFIED HEALTH STATUS SNOMED Code(s): 390383419 Status and Disposition: inpatient
[2019-09-25] MEDS: ceFAZolin 2 GM PREMIX in ORs 2 GM/50 ML BAG IVPB SCH (17:51)
[2019-09-25] MEDS: Atorvastatin* 10 MG TAB PO SCH (21:24)
[2019-09-25] MEDS ORDERED: Insulin LISPRO* 1 UNITS UNIT SUBCUT ONE (23:20)
[2019-09-26] MEDS: ceFAZolin 2 GM PREMIX in ORs 2 GM/50 ML BAG IVPB SCH ×3 (00:50→18:23)
[2019-09-26] MEDS: Albuterol 2.5 MG/3 ML NEB.SOL* (0.083%) INH SCH ×4 (03:24→23:07)
[2019-09-26] MEDS: Albuterol 2.5 MG/3 ML NEB.SOL* (0.083%) INH PRN (04:17)
[2019-09-26 06:04] LABS: Hematocrit 33 % (42-52); Hemoglobin 10.8 g/dL (14.0-18.0); Mean Corpuscular HGB Conc 33 g/dL (31-36); Mean Corpuscular Hemoglobin 28 pg (27-31); Mean Corpuscular Volume 85 fL (80-94); Mean Platelet Volume 9.7 fL (7.4-10.4); Platelet Count 127 10^3/uL (150-450); Red Blood Count 3.89 10^6 /uL (4.18-5.48); Red Cell Distribution Width 19 % (10-15); White Blood Count 8.1 10^3/uL (3.5-10.8)
[2019-09-26 06:25] LABS: Calcium 9.5 mg/dL (8.6-10.3); EGFR African American 50.7 (>60); EGFR Non-African American 41.9 (>60); Potassium 3.9 mmol/L (3.5-5.0)
[2019-09-26] MEDS: LORazepam TAB(*) 0.5 MG PO PRN ×2 (06:42→22:07)
[2019-09-26] MEDS: Mometasone 220 MCG MDI INH SCH (07:10)
[2019-09-26] MEDS: Tiotropium Brom/Olodaterol MDI INH SCH (07:12)
[2019-09-26] MEDS ORDERED: Vancomycin Trough Check NOTE FOLLOW UP ONE (08:30)
[2019-09-26] MEDS: Insulin GLARGINE(*) 1 UNITS UNIT SUBCUT SCH ×3 (09:53→22:05)
[2019-09-26] MEDS: Insulin LISPRO* 1 UNITS UNIT SUBCUT SCH ×4 (10:32→22:05)
[2019-09-26] MEDS: Metoprolol Succinate XL TAB* 100 MG PO SCH (11:08)
[2019-09-26] MEDS: Digoxin TAB* 0.125 MG PO SCH (11:10)
[2019-09-26] MEDS: Cholecalciferol TAB* 1000 UNITS PO SCH (11:11)
[2019-09-26] MEDS: Furosemide TAB* 40 MG PO SCH ×2 (11:11→18:19)
[2019-09-26] MEDS: OXcarbazepine TAB(*) 300 MG PO SCH ×2 (11:20→22:07)
[2019-09-26] MEDS: Pantoprazole TAB * 40 MG TAB PO SCH (11:20)
[2019-09-26] MEDS: Clopidogrel TAB* 75 MG PO SCH (11:27)
[2019-09-26] MEDS: predniSONE TAB* 20 MG PO SCH (11:28)
[2019-09-26] MEDS: Sertraline* 50 MG TAB PO SCH (11:28)
[2019-09-26] MEDS: Gabapentin CAP(*) 300 MG PO SCH ×2 (11:29→22:06)
[2019-09-26] MEDS: Apixaban* 5 MG TAB PO SCH ×2 (11:29→22:07)
[2019-09-26] MEDS: amLODIPine TAB* 5 MG PO SCH (11:30)
[2019-09-26] MEDS: Tamsulosin CAP* 0.4 MG PO SCH (11:30)
[2019-09-26] MEDS: Nicotine PATCH 7 MG/24 HR* PATCH TRANSDERM SCH ×2 (11:31→11:43)
[2019-09-26] MEDS: HYDROcodone/ACETAMIN 5-325 MG* 1 TAB PO PRN ×2 (11:46→22:07)
[2019-09-26] MEDS ORDERED: Albuterol 2.5 MG/3 ML NEB.SOL* (0.083%) INH ONE (12:42)
[2019-09-26 14:02] LABS: Digoxin 0.8 ng/ml (0.8-2.0)
--- NOTE | 2019-09-26 15:10 | PN ---
Subjective Date of Service: 09/26/19 Interval History: Patient awake alert sitting in the chair, working with PT. Patient reports that breathing is improving. c/o mild left elbow pain. CT no abscess , unable to r/o osteomyelitis, recommened MRI - patient refusing MRI Denies abd pain n/v/d. Denies fever or chills. left elbow redness and swelling improving. no drainage today. Family History: Unchanged from Admission Social History: Unchanged from Admission Past Medical History: Unchanged from Admission Objective Active Medications: Acetaminophen (Tylenol Tab*) 650 mg PO Q4H PRN PRN Reason: FEVER/PAIN Hydrocodone Bitart/Acetaminophen ([place] 5-325 Tab*) 1 tab PO Q3H PRN PRN Reason: PAIN - MODERATE Last Admin: 09/26/19 11:46 Dose: 1 tab Albuterol (Ventolin 2.5 Mg/3 Ml Neb.Jessika*) 2.5 mg INH Q2HR PRN PRN Reason: SHORTNESS OF BREATH Last Admin: 09/26/19 04:17 Dose: 2.5 mg Albuterol (Ventolin 2.5 Mg/3 Ml Neb.Jessika*) 2.5 mg INH [id number] AWAKE [facility] Last Admin: 09/26/19 13:19 Dose: 2.5 mg Amlodipine Besylate (Norvasc Tab*) 2.5 mg PO DAILY [facility] Last Admin: 09/26/19 11:30 Dose: 2.5 mg Apixaban (Eliquis*) 5 mg PO BID [facility] Last Admin: 09/26/19 11:29 Dose: 5 mg Atorvastatin Calcium (Lipitor*) 10 mg PO BEDTIME [facility] Last Admin: 09/25/19 21:24 Dose: 10 mg Cholecalciferol (Vitamin D Tab*) 2,000 units PO DAILY [facility] Last Admin: 09/26/19 11:11 Dose: 2,000 units Clopidogrel Bisulfate (Plavix Tab*) 75 mg PO DAILY [facility] Last Admin: 09/26/19 11:27 Dose: 75 mg Digoxin (Lanoxin Tab*) 0.125 mg PO DAILY [facility] Last Admin: 09/26/19 11:10 Dose: 0.125 mg Furosemide (Lasix Tab*) 80 mg PO 1700 [facility] Last Admin: 09/25/19 17:50 Dose: 80 mg Furosemide (Lasix Tab*) 100 mg PO DAILY [facility] Last Admin: 09/26/19 11:11 Dose: 100 mg Gabapentin (Neurontin Cap(*)) 600 mg PO BID [facility] Last Admin: 09/26/19 11:29 Dose: 600 mg Cefazolin Sodium/Dextrose (Kefzol 2 Gm Premix In Ors(*)) 2 gm in 50 mls @ 100 mls/hr IVPB Q8H [facility] Last Admin: 09/26/19 10:48 Dose: 100 mls/hr Insulin Glargine (Lantus(*)) 14 units SUBCUT QPM [facility] Last Admin: 09/25/19 17:55 Dose: 14 unit Insulin Glargine (Lantus(*)) 44 units SUBCUT QAM [facility] Last Admin: 09/26/19 09:53 Dose: 44 units Insulin Human Lispro (Humalog*) 0 units SUBCUT ACHS [facility]; Protocol Last Admin: 09/26/19 12:58 Dose: 4 units Loperamide HCl (Imodium Cap*) 2 mg PO Q6H PRN PRN Reason: DIARRHEA Lorazepam (Ativan Tab(*)) 0.5 mg PO TID PRN PRN Reason: ANXIETY Last Admin: 09/26/19 06:42 Dose: 0.5 mg Metoprolol Succinate (Toprol Xl Tab*) 75 mg PO BID [facility] Mometasone Furoate (Asmanex 220 Mcg Mdi *) 1 puff INH BID [facility]; Protocol Last Admin: 09/26/19 07:10 Dose: Not Given Nicotine (Nicotine Patch 7 Mg/24 Hr*) 1 patch TRANSDERM DAILY [facility] Last Admin: 09/26/19 11:43 Dose: 1 patch Oxcarbazepine (Trileptal Tab(*)) 300 mg PO BID [facility] Last Admin: 09/26/19 11:20 Dose: 300 mg Pantoprazole Sodium (Protonix Tab*) 40 mg PO DAILY [facility] Last Admin: 09/26/19 11:20 Dose: 40 mg Prednisone (Deltasone Tab*) 40 mg PO DAILY [facility] Stop: 09/28/19 09:01 Last Admin: 09/26/19 11:28 Dose: 40 mg Sertraline HCl (Zoloft*) 50 mg PO DAILY [facility] Last Admin: 09/26/19 11:28 Dose: 50 mg Tamsulosin HCl (Flomax Cap*) 0.4 mg PO DAILY [facility] Last Admin: 09/26/19 11:30 Dose: 0.4 mg Tiotropium [place]/Olodaterol (Stiolto Respimat Inh [place] (60 Puff)) 2 puff INH DAILY [facility] Last Admin: 09/26/19 07:12 Dose: Not Given Vital Signs - 8 hr 09/26/19 09/26/19 09/26/19 07:13 08:00 08:03 Temperature 97.9 F Pulse Rate 85 71 Respiratory 27 20 20 Rate Blood Pressure 134/53 (mmHg) O2 Sat by Pulse 97 95 Oximetry 09/26/19 09/26/19 09/26/19 08:51 10:53 11:10 Temperature Pulse Rate 73 Respiratory 20 Rate Blood Pressure 149/53 (mmHg) O2 Sat by Pulse Oximetry 09/26/19 09/26/19 09/26/19 11:15 11:29 11:46 Temperature Pulse Rate Respiratory 20 20 Rate Blood Pressure 102/62 (mmHg) O2 Sat by Pulse Oximetry 09/26/19 09/26/19 12:52 13:19 Temperature Pulse Rate 65 Respiratory 20 18 Rate Blood Pressure (mmHg) O2 Sat by Pulse 97 Oximetry Oxygen Devices in Use Now: Nasal Cannula Appearance: appears comfortable sitting in the chair no acute distress, alert and oriented x 3 Eyes: No Scleral Icterus Ears/Nose/Mouth/Throat: Clear Oropharnyx, Mucous Membranes Moist Neck: NL Appearance and Movements; NL JVP, Trachea Midline Respiratory: Symmetrical Chest Expansion and Respiratory Effort, Clear to Auscultation, - - in the bases bilat Cardiovascular: NL Sounds; No Murmurs; No JVD Abdominal: NL Sounds; No Tenderness; No Distention Extremities: No Edema, No Clubbing, Cyanosis Skin: - - left elbow with mild erythema, no drainage. right foot with ulcer Neurological: Alert and Oriented x 3 Nutrition: Taking PO's Result Diagrams: 09/26/19 05:34 09/26/19 05:34 Additional Lab and Data: Lab Results 09/22/19 09/22/19 09/22/19 Range/Units 18:15 18:15 18:15 WBC 8.6 (3.5-10.8) 10^3/uL RBC 4.35 (4.18-5.48) 10^6 /uL Hgb 11.9 L (14.0-18.0) g/dL Hct 38 L (42-52) % MCV 87 (80-94) fL MCH 27 (27-31) pg MCHC 32 (31-36) g/dL RDW 19 H (10-15) % Plt Count 166 (150-450) 10^3/uL MPV 10.0 (7.4-10.4) fL Neut % (Auto) 90.0 % Lymph % (Auto) 5.0 % [place] % (Auto) 3.7 % Eos % (Auto) 0.5 % Baso % (Auto) 0.8 % Absolute Neuts (auto) 7.8 H (1.5-7.7) 10^3/ul Absolute Lymphs (auto) 0.4 L (1.0-4.8) 10^3/ul Absolute Monos (auto) 0.3 (0-0.8) 10^3/ul Absolute Eos (auto) 0.0 (0-0.6) 10^3/ul Absolute Basos (auto) 0.1 (0-0.2) 10^3/ul Absolute Nucleated RBC 0.0 10^3/ul Nucleated RBC % 0.1 Sodium 136 (135-145) mmol/L Potassium 4.8 (3.5-5.0) mmol/L Chloride 95 L (101-111) mmol/L Carbon Dioxide 28 (22-32) mmol/L Anion Gap 13 H (2-11) mmol/L BUN 30 H (6-24) mg/dL Creatinine 1.64 H (0.67-1.17) mg/dL Est GFR ( Amer) 50.7 (>60) Est GFR (Non-Af Amer) 41.9 (>60) BUN/Creatinine Ratio 18.3 (8-20) Glucose 528 H* (70-100) mg/dL Calcium 9.3 (8.6-10.3) mg/dL Total Bilirubin 1.00 (0.2-1.0) mg/dL AST 19 (13-39) U/L ALT 12 (7-52) U/L Alkaline Phosphatase 161 H (34-104) U/L Troponin I 0.05 H* (<0.03) ng/mL B-Natriuretic Peptide > 1300 H (<=100) pg/mL Total Protein 7.0 (6.4-8.9) g/dL Albumin 4.0 (3.2-5.2) g/dL Globulin 3.0 (2-4) g/dL Albumin/Globulin Ratio 1.3 (1-3) Microbiology and Other Data: Microbiology 09/23/19 05:56 Gram Stain - Final Elbow Left Assess/Plan/Problems-Billing Assessment: Mr. Berrios is a 68 y.o male with a past medical hx of systolic CHF, HTN, DM type 2, afib, JOSIAH, GERD who presented to the ER with shortness of breath found to have an exacerbation of CHF. - Patient Problems (1) Acute and chronic respiratory failure with hypoxia Current Visit: No Status: Acute Code(s): J96.21 - ACUTE AND CHRONIC RESPIRATORY FAILURE WITH HYPOXIA SNOMED Code(s): 85590929 Comment: -Secondary to CHF exacerbation. -Initially required BIPAP on admission, transitioned to NC/ face mask while awake tolerating well -Will continue daily weights, Strict I/O's -Lasix IV on admission - transitioned to PO lasix - will conitnue wean O2 as able back to baseline added prednisone - breathing improving (2) Acute on chronic systolic heart failure Current Visit: No Status: Acute Code(s): I50.23 - ACUTE ON CHRONIC SYSTOLIC (CONGESTIVE) HEART FAILURE SNOMED Code(s): 968848042 Comment: - Echo done in showed no significant changes from 2017- EF 40-45% - IV Lasix 100 mg BID on admission - transitioned to PO lasix - BUN/Creatinine - with mild elevation from baseline will decreased lasix to 80mg BID - continues to require - o2 via NC at 4-5 liters (3) Infection of left elbow Current Visit: Yes Status: Acute Code(s): M00.9 - PYOGENIC ARTHRITIS, UNSPECIFIED SNOMED Code(s): 429450079 Comment: - Ortho consulted- recommended antibiotic therapy - may require surgery in the future - wound culture with Staph blood cultures -no growth ID consulted - antibiotics changed to Ancef 2 grams Q 8 hours will need IV antibiotic until considerable improvement and then PO keflex for 28 days , recommeded MRI of the Elbow patient refused - CT completed - no abscess- unable to r/o osteo (4) COPD (chronic obstructive pulmonary disease) Current Visit: No Status: Chronic Priority: Medium Code(s): J44.9 - CHRONIC OBSTRUCTIVE PULMONARY DISEASE, UNSPECIFIED SNOMED Code(s): 51419615 Comment: - Uses supplemental O2 at home 3.5liters at baseline- requiring 4 liters today - will continue wean as able - mild COPD exacerbation- continue to c/o shortness of breath - this is likely a combination of CHF and COPD exacberation contributing to his shortness of breath. Patient does report increase cough ,shortness of breath and sputum production.- Will conitnue prednisone 40 mg po daily for total of 5 days No evidence of infection at this time. (5) Hypertension Current Visit: No Status: Acute Code(s): I10 - ESSENTIAL (PRIMARY) HYPERTENSION SNOMED Code(s): 13252737 Comment: - Stable (6) Sleep apnea Current Visit: No Status: Acute Code(s): G47.30 - SLEEP APNEA, UNSPECIFIED SNOMED Code(s): 37605082 Comment: - Bipap at night (7) Atrial fibrillation Current Visit: No Status: Chronic Priority: Medium Code(s): I48.91 - UNSPECIFIED ATRIAL FIBRILLATION SNOMED Code(s): 91442337 Comment: -Rate controlled. -Continue Apixaban and Metoprolol. (8) CAD (coronary artery disease) Current Visit: No Status: Chronic Priority: Medium Code(s): I25.10 - ATHSCL HEART DISEASE OF [place] CORONARY ARTERY W/O ANG PCTRS SNOMED Code(s): 63104149 Comment: - Baseline elevated troponin - Asymptomatic - No EKG changes - Continue home medications (9) CKD (chronic kidney disease) stage 3, GFR 30-59 ml/min Current Visit: No Status: Chronic Priority: Medium Code(s): N18.3 - CHRONIC KIDNEY DISEASE, STAGE 3 (MODERATE) SNOMED Code(s): 037509367 Comment: - slightly above average creatinine - will continue to monitor (10) GERD (gastroesophageal reflux disease) Current Visit: No Status: Chronic Code(s): K21.9 - GASTRO-ESOPHAGEAL REFLUX DISEASE WITHOUT ESOPHAGITIS SNOMED Code(s): 669388392 Comment: - Continue protonix. (11) Elevated troponin Current Visit: No Status: Resolved Priority: Medium Code(s): R79.89 - OTHER SPECIFIED ABNORMAL FINDINGS OF BLOOD CHEMISTRY SNOMED Code(s): 536073883 Comment: - Denies chest pain, likely related to demand ischemia from CHF - At baseline - No further work-up at this time (12) DVT prophylaxis Current Visit: No Status: Acute Priority: Medium Onset Date: 11/05/14 Code(s): AKS9130 - SNOMED Code(s): 027993039 Comment: -Apixaban. (13) Full code status Current Visit: No Status: Acute Priority: Medium Onset Date: 11/05/14 Code(s): Z78.9 - OTHER SPECIFIED HEALTH STATUS SNOMED Code(s): 948290658 Status and Disposition: inpatient
[2019-09-26] MEDS ORDERED: GENTAMICIN 0.1% TOPICAL SCH (17:30)
[2019-09-26] MEDS ORDERED: Insulin LISPRO* 1 UNITS UNIT SUBCUT ONE (18:29)
[2019-09-26] MEDS: Atorvastatin* 10 MG TAB PO SCH (22:07)
[2019-09-26] MEDS: Metoprolol Succinate XL TAB* 25 MG PO SCH (22:46)
[2019-09-27] MEDS: GENTAMICIN 0.1% TOPICAL SCH ×4 (00:30→21:55)
[2019-09-27] MEDS: ceFAZolin 2 GM PREMIX in ORs 2 GM/50 ML BAG IVPB SCH ×3 (03:15→17:44)
[2019-09-27] MEDS: Albuterol 2.5 MG/3 ML NEB.SOL* (0.083%) INH SCH ×4 (07:25→18:47)
[2019-09-27] MEDS: Mometasone 220 MCG MDI INH SCH ×3 (07:25→23:50)
[2019-09-27] MEDS: Tiotropium Brom/Olodaterol MDI INH SCH (07:40)
[2019-09-27] MEDS: Apixaban* 5 MG TAB PO SCH ×2 (09:08→21:49)
[2019-09-27] MEDS: Gabapentin CAP(*) 300 MG PO SCH ×2 (09:08→21:51)
[2019-09-27] MEDS: Pantoprazole TAB * 40 MG TAB PO SCH (09:08)
[2019-09-27] MEDS: predniSONE TAB* 20 MG PO SCH (09:09)
[2019-09-27] MEDS: Tamsulosin CAP* 0.4 MG PO SCH (09:09)
[2019-09-27] MEDS: Cholecalciferol TAB* 1000 UNITS PO SCH (09:09)
[2019-09-27] MEDS: Sertraline* 50 MG TAB PO SCH (09:09)
[2019-09-27] MEDS: OXcarbazepine TAB(*) 300 MG PO SCH ×2 (09:10→21:49)
[2019-09-27] MEDS: Clopidogrel TAB* 75 MG PO SCH (09:10)
[2019-09-27] MEDS: Insulin LISPRO* 1 UNITS UNIT SUBCUT SCH ×5 (09:12→21:47)
[2019-09-27] MEDS: Insulin GLARGINE(*) 1 UNITS UNIT SUBCUT SCH ×2 (09:13→18:15)
[2019-09-27] MEDS: Nicotine PATCH 7 MG/24 HR* PATCH TRANSDERM SCH (09:13)
[2019-09-27] MEDS: Metoprolol Succinate XL TAB* 25 MG PO SCH ×3 (10:31→22:03)
[2019-09-27] MEDS: amLODIPine TAB* 5 MG PO SCH (10:31)
[2019-09-27] MEDS: Furosemide TAB* 40 MG PO SCH ×2 (10:32→17:43)
[2019-09-27] MEDS: Digoxin TAB* 0.125 MG PO SCH (10:33)
--- NOTE | 2019-09-27 11:16 | PN ---
Progress Note - Progress Note Date of Service: 09/27/19 Note: Left elbow chronic bursal infection with possible osteo as per CT scan. Patient alert and resting comfortably in chair. Elbow does not have a dressing in place. He denies pain in elbow and has FROM without issue. He declined an MRI at this time. Left elbow with benign appearing healing crust and minimal erythema or edema. Orthopedically he appears stable without new acute concerns with his lack of pain and FROM. We will continue to monitor but patient can follow-up on an outpatient basis at this point with orthopedics.
[2019-09-27] MEDS: HYDROcodone/ACETAMIN 5-325 MG* 1 TAB PO PRN ×2 (12:52→21:53)
--- NOTE | 2019-09-27 13:47 | PN ---
Subjective Date of Service: 09/27/19 Interval History: Patient drowsy this morning. No complaints. Denies chest pain or shortness of breath. Denies abd pain n/v/d. Patient with small amount of drainage noted to left elbow. redness is improved, swelling improved. Family History: Unchanged from Admission Social History: Unchanged from Admission Past Medical History: Unchanged from Admission Objective Active Medications: Acetaminophen (Tylenol Tab*) 650 mg PO Q4H PRN PRN Reason: FEVER/PAIN Hydrocodone Bitart/Acetaminophen ([place] 5-325 Tab*) 1 tab PO Q3H PRN PRN Reason: PAIN - MODERATE Last Admin: 09/27/19 12:52 Dose: 1 tab Albuterol (Ventolin 2.5 Mg/3 Ml Neb.Jessika*) 2.5 mg INH Q2HR PRN PRN Reason: SHORTNESS OF BREATH Last Admin: 09/26/19 04:17 Dose: 2.5 mg Albuterol (Ventolin 2.5 Mg/3 Ml Neb.Jessika*) 2.5 mg INH [id number] AWAKE [facility] Last Admin: 09/27/19 07:40 Dose: 2.5 mg Amlodipine Besylate (Norvasc Tab*) 2.5 mg PO DAILY [facility] Last Admin: 09/27/19 10:31 Dose: 2.5 mg Apixaban (Eliquis*) 5 mg PO BID [facility] Last Admin: 09/27/19 09:08 Dose: 5 mg Atorvastatin Calcium (Lipitor*) 10 mg PO BEDTIME [facility] Last Admin: 09/26/19 22:07 Dose: 10 mg Cholecalciferol (Vitamin D Tab*) 2,000 units PO DAILY [facility] Last Admin: 09/27/19 09:09 Dose: 2,000 units Clopidogrel Bisulfate (Plavix Tab*) 75 mg PO DAILY [facility] Last Admin: 09/27/19 09:10 Dose: 75 mg Digoxin (Lanoxin Tab*) 0.125 mg PO DAILY [facility] Last Admin: 09/27/19 10:33 Dose: 0.125 mg Furosemide (Lasix Tab*) 80 mg PO 1700 [facility] Last Admin: 09/26/19 18:19 Dose: 80 mg Furosemide (Lasix Tab*) 80 mg PO DAILY [facility] Last Admin: 09/27/19 10:32 Dose: 80 mg Gabapentin (Neurontin Cap(*)) 600 mg PO BID [facility] Last Admin: 09/27/19 09:08 Dose: 600 mg Cefazolin Sodium/Dextrose (Kefzol 2 Gm Premix In Ors(*)) 2 gm in 50 mls @ 100 mls/hr IVPB Q8H [facility] Last Admin: 09/27/19 10:44 Dose: 100 mls/hr Insulin Glargine (Lantus(*)) 44 units SUBCUT QAM [facility] Last Admin: 09/27/19 09:13 Dose: 44 units Insulin Glargine (Lantus(*)) 20 units SUBCUT QPM [facility] Last Admin: 09/26/19 22:05 Dose: 20 units Insulin Human Lispro (Humalog*) 0 units SUBCUT ACHS [facility]; Protocol Last Admin: 09/27/19 12:43 Dose: 6 units Loperamide HCl (Imodium Cap*) 2 mg PO Q6H PRN PRN Reason: DIARRHEA Lorazepam (Ativan Tab(*)) 0.5 mg PO TID PRN PRN Reason: ANXIETY Last Admin: 09/26/19 22:07 Dose: 0.5 mg Metoprolol Succinate (Toprol Xl Tab*) 75 mg PO BID [facility] Last Admin: 09/27/19 10:31 Dose: 75 mg Mometasone Furoate (Asmanex 220 Mcg Mdi *) 1 puff INH BID [facility]; Protocol Last Admin: 09/27/19 07:41 Dose: 1 puff Nicotine (Nicotine Patch 7 Mg/24 Hr*) 1 patch TRANSDERM DAILY [facility] Last Admin: 09/27/19 09:13 Dose: 1 patch Non Formulary Med* Gentamicin 0.1% Cream 1 admin TOPICAL TID [facility] Last Admin: 09/27/19 13:38 Dose: Not Given Oxcarbazepine (Trileptal Tab(*)) 300 mg PO BID [facility] Last Admin: 09/27/19 09:10 Dose: 300 mg Pantoprazole Sodium (Protonix Tab*) 40 mg PO DAILY [facility] Last Admin: 09/27/19 09:08 Dose: 40 mg Prednisone (Deltasone Tab*) 40 mg PO DAILY [facility] Stop: 09/28/19 09:01 Last Admin: 09/27/19 09:09 Dose: 40 mg Sertraline HCl (Zoloft*) 50 mg PO DAILY [facility] Last Admin: 09/27/19 09:09 Dose: 50 mg Tamsulosin HCl (Flomax Cap*) 0.4 mg PO DAILY [facility] Last Admin: 09/27/19 09:09 Dose: 0.4 mg Tiotropium [place]/Olodaterol (Stiolto Respimat Inh [place] (60 Puff)) 2 puff INH DAILY [facility] Last Admin: 09/27/19 07:40 Dose: 2 puff Vital Signs - 8 hr 09/27/19 09/27/19 09/27/19 07:15 07:34 08:07 Temperature 97.6 F Pulse Rate 70 66 Respiratory 20 18 15 Rate Blood Pressure 107/60 (mmHg) O2 Sat by Pulse 92 93 Oximetry 09/27/19 09/27/19 09/27/19 09:08 10:33 10:44 Temperature Pulse Rate 68 Respiratory 18 Rate Blood Pressure 112/57 (mmHg) O2 Sat by Pulse Oximetry 09/27/19 09/27/19 11:58 12:52 Temperature 97.3 F Pulse Rate 70 Respiratory 16 16 Rate Blood Pressure 97/54 (mmHg) O2 Sat by Pulse 95 Oximetry Oxygen Devices in Use Now: Nasal Cannula Eyes: No Scleral Icterus Ears/Nose/Mouth/Throat: Clear Oropharnyx, Mucous Membranes Moist Neck: NL Appearance and Movements; NL JVP, Trachea Midline Respiratory: Symmetrical Chest Expansion and Respiratory Effort, Clear to Auscultation Cardiovascular: NL Sounds; No Murmurs; No JVD, No Edema Abdominal: NL Sounds; No Tenderness; No Distention Extremities: No Edema, No Clubbing, Cyanosis Skin: - - left elbow with mild erythema, mild swelling - improving Neurological: Alert and Oriented x 3 Nutrition: Taking PO's Result Diagrams: 09/26/19 05:34 09/26/19 05:34 Additional Lab and Data: Lab Results 09/22/19 09/22/19 09/22/19 Range/Units 18:15 18:15 18:15 WBC 8.6 (3.5-10.8) 10^3/uL RBC 4.35 (4.18-5.48) 10^6 /uL Hgb 11.9 L (14.0-18.0) g/dL Hct 38 L (42-52) % MCV 87 (80-94) fL MCH 27 (27-31) pg MCHC 32 (31-36) g/dL RDW 19 H (10-15) % Plt Count 166 (150-450) 10^3/uL MPV 10.0 (7.4-10.4) fL Neut % (Auto) 90.0 % Lymph % (Auto) 5.0 % [place] % (Auto) 3.7 % Eos % (Auto) 0.5 % Baso % (Auto) 0.8 % Absolute Neuts (auto) 7.8 H (1.5-7.7) 10^3/ul Absolute Lymphs (auto) 0.4 L (1.0-4.8) 10^3/ul Absolute Monos (auto) 0.3 (0-0.8) 10^3/ul Absolute Eos (auto) 0.0 (0-0.6) 10^3/ul Absolute Basos (auto) 0.1 (0-0.2) 10^3/ul Absolute Nucleated RBC 0.0 10^3/ul Nucleated RBC % 0.1 Sodium 136 (135-145) mmol/L Potassium 4.8 (3.5-5.0) mmol/L Chloride 95 L (101-111) mmol/L Carbon Dioxide 28 (22-32) mmol/L Anion Gap 13 H (2-11) mmol/L BUN 30 H (6-24) mg/dL Creatinine 1.64 H (0.67-1.17) mg/dL Est GFR ( Amer) 50.7 (>60) Est GFR (Non-Af Amer) 41.9 (>60) BUN/Creatinine Ratio 18.3 (8-20) Glucose 528 H* (70-100) mg/dL Calcium 9.3 (8.6-10.3) mg/dL Total Bilirubin 1.00 (0.2-1.0) mg/dL AST 19 (13-39) U/L ALT 12 (7-52) U/L Alkaline Phosphatase 161 H (34-104) U/L Troponin I 0.05 H* (<0.03) ng/mL B-Natriuretic Peptide > 1300 H (<=100) pg/mL Total Protein 7.0 (6.4-8.9) g/dL Albumin 4.0 (3.2-5.2) g/dL Globulin 3.0 (2-4) g/dL Albumin/Globulin Ratio 1.3 (1-3) Microbiology and Other Data: Microbiology 09/23/19 05:56 Gram Stain - Final Elbow Left Assess/Plan/Problems-Billing Assessment: Mr. Berrios is a 68 y.o male with a past medical hx of systolic CHF, HTN, DM type 2, afib, JOSIAH, GERD who presented to the ER with shortness of breath found to have an exacerbation of CHF. - Patient Problems (1) Acute and chronic respiratory failure with hypoxia Current Visit: No Status: Acute Code(s): J96.21 - ACUTE AND CHRONIC RESPIRATORY FAILURE WITH HYPOXIA SNOMED Code(s): 10812950 Comment: -Secondary to CHF exacerbation. -Initially required BIPAP on admission, transitioned to NC/ face mask while awake tolerating well- o2 requirement back to baseline -Will continue daily weights, Strict I/O's -Lasix IV on admission - transitioned to PO lasix - O2 at baseline - added prednisone - breathing improved (2) Acute on chronic systolic heart failure Current Visit: No Status: Acute Code(s): I50.23 - ACUTE ON CHRONIC SYSTOLIC (CONGESTIVE) HEART FAILURE SNOMED Code(s): 991328221 Comment: - Echo done in showed no significant changes from 2017- EF 40-45% - IV Lasix 100 mg BID on admission - transitioned to PO lasix - BUN/Creatinine - with mild elevation from baseline will decreased lasix to 80mg BID as patient appears euvolemic - at baseline - o2 via NC at 3.5 liters (3) Infection of left elbow Current Visit: Yes Status: Acute Code(s): M00.9 - PYOGENIC ARTHRITIS, UNSPECIFIED SNOMED Code(s): 895001983 Comment: infected olecranon bursitis- improving - Ortho consulted- recommended antibiotic therapy - may require surgery in the future - wound culture with Staph blood cultures -no growth ID consulted - antibiotics changed to Ancef 2 grams Q 8 hours will need IV antibiotic until considerable improvement and then PO keflex for 28 days , recommeded MRI of the Elbow patient refused, will try again. - CT completed - no abscess- unable to r/o osteo (4) COPD (chronic obstructive pulmonary disease) Current Visit: No Status: Chronic Priority: Medium Code(s): J44.9 - CHRONIC OBSTRUCTIVE PULMONARY DISEASE, UNSPECIFIED SNOMED Code(s): 06247206 Comment: - Uses supplemental O2 at home 3.5 liters at baseline- requiring 3.5 liters today - mild COPD exacerbation- continue to c/o intermittent shortness of breath - this is likely a combination of CHF and COPD exacberation contributing to his shortness of breath.- now resolved. Patient did report increase cough ,shortness of breath and sputum production. - Will conitnue prednisone 40 mg po daily for total of 5 days No evidence of infection at this time. (5) Hypertension Current Visit: No Status: Acute Code(s): I10 - ESSENTIAL (PRIMARY) HYPERTENSION SNOMED Code(s): 92935925 Comment: - Stable - BP a little soft - decreased lasix (6) Sleep apnea Current Visit: No Status: Acute Code(s): G47.30 - SLEEP APNEA, UNSPECIFIED SNOMED Code(s): 86903580 Comment: - Bipap at night (7) Atrial fibrillation Current Visit: No Status: Chronic Priority: Medium Code(s): I48.91 - UNSPECIFIED ATRIAL FIBRILLATION SNOMED Code(s): 12072055 Comment: -Rate controlled. -Continue Apixaban and Metoprolol. - patient with bracdycardia yesterday HR in the 40's decreased metoprolol to 75mg BID (8) CAD (coronary artery disease) Current Visit: No Status: Chronic Priority: Medium Code(s): I25.10 - ATHSCL HEART DISEASE OF [place] CORONARY ARTERY W/O ANG PCTRS SNOMED Code(s): 13513803 Comment: - Baseline elevated troponin - Asymptomatic - No EKG changes - Continue home medications (9) CKD (chronic kidney disease) stage 3, GFR 30-59 ml/min Current Visit: No Status: Chronic Priority: Medium Code(s): N18.3 - CHRONIC KIDNEY DISEASE, STAGE 3 (MODERATE) SNOMED Code(s): 921146340 Comment: - slightly above average creatinine - will continue to monitor (10) GERD (gastroesophageal reflux disease) Current Visit: No Status: Chronic Code(s): K21.9 - GASTRO-ESOPHAGEAL REFLUX DISEASE WITHOUT ESOPHAGITIS SNOMED Code(s): 749883126 Comment: - Continue protonix. (11) Elevated troponin Current Visit: No Status: Resolved Priority: Medium Code(s): R79.89 - OTHER SPECIFIED ABNORMAL FINDINGS OF BLOOD CHEMISTRY SNOMED Code(s): 025002892 Comment: - Denies chest pain, likely related to demand ischemia from CHF - At baseline - No further work-up at this time (12) DVT prophylaxis Current Visit: No Status: Acute Priority: Medium Onset Date: 11/05/14 Code(s): VMY6948 - SNOMED Code(s): 598881713 Comment: -Apixaban. (13) Full code status Current Visit: No Status: Acute Priority: Medium Onset Date: 11/05/14 Code(s): Z78.9 - OTHER SPECIFIED HEALTH STATUS SNOMED Code(s): 139684961 Status and Disposition: inpatient - likely discharge home in the AM
[2019-09-27] MEDS ORDERED: Insulin GLARGINE(*) 1 UNITS UNIT SUBCUT SCH (18:00)
[2019-09-27] MEDS ORDERED: Insulin LISPRO* 1 UNITS UNIT SUBCUT SCH (18:06)
[2019-09-27] MEDS ORDERED: Insulin GLARGINE(*) 1 UNITS UNIT SUBCUT ONE (21:28)
[2019-09-27] MEDS: Atorvastatin* 10 MG TAB PO SCH (21:51)
[2019-09-27] MEDS: LORazepam TAB(*) 0.5 MG PO PRN (21:52)
[2019-09-27] MEDS: Albuterol 2.5 MG/3 ML NEB.SOL* (0.083%) INH PRN (22:57)
[2019-09-28] MEDS: ceFAZolin 2 GM PREMIX in ORs 2 GM/50 ML BAG IVPB SCH ×2 (02:07→10:05)
[2019-09-28] MEDS: Albuterol 2.5 MG/3 ML NEB.SOL* (0.083%) INH SCH ×2 (05:18→08:15)
[2019-09-28] MEDS: Mometasone 220 MCG MDI INH SCH (08:16)
[2019-09-28] MEDS: Tiotropium Brom/Olodaterol MDI INH SCH (08:16)
--- NOTE | 2019-09-28 09:30 | PN ---
Progress Note - Progress Note Date of Service: 09/28/19 SOAP: Subjective: CC: elbow infection HPI: 68 year old man with chronic respiratory failure and left elbow infection off and on since May. The pain is better, not gone, no problem moving it. Appetite is good, no fever, rash or diarrhea. Objective: Vital Signs Temp 36.3 C 09/28/19 07:15 Pulse 68 09/28/19 08:18 Resp 16 09/28/19 08:18 BP 133/59 09/28/19 07:15 Pulse Ox 97 09/28/19 08:18 Intake & Output 09/27/19 09/28/19 09/28/19 18:59 06:59 18:59 Intake Total 209 1113 960 Output Total 530 3125 Balance 1559 -2011 960 Intake: IVPB 63 Cefazolin 63 Oral 2089 1050 960 Output: Urine 230 3125 [place] 300 Other: Estimated Void Medium # Bowel Movements 1 # Voids 8 Gen:awake, no distress HEENT: no thrush Heart:RRR no murmur Lungs:scattered wheeze Abd:+BS NTND soft Skin: no rash MSK: Left elbow ROM normal, slight edema and erythema, 2 mm wound with eschar no drainage Laboratory Results - last 24 hr 09/27/19 09/27/19 09/27/19 11:45 16:56 17:06 POC Glucose (mg/dL) 269 H > 444 H* Glucose Meter Confirm 419 H 09/27/19 09/27/19 09/28/19 19:52 20:17 07:36 POC Glucose (mg/dL) > 444 H* 112 H Glucose Meter Confirm 478 H Assessment: 1. Left elbow infection with olecranon bursitis, underlying acute osteomyelitis due to MSSA 2. chronic respiratory failure 3. CKD 4. CAD 5. PAD Plan: 1. He will only have an MRI if he can be put out which I think is high risk of complications with his respiratory status, will cover osteomyelitis with ancef 2 gm IV Q8hrs day 6/7 then cephalexin 500 mg po twice daily for 35 more days, follow up with me in 1-2 weeks. 35 minutes floor time >50% face to face in counseling with patient and in discussion of osteomyelitis treatment, some uncertainty in not having MRI, they understand and are in agreement with long course of antibiotics.
[2019-09-28] MEDS: amLODIPine TAB* 5 MG PO SCH (09:35)
[2019-09-28] MEDS: Furosemide TAB* 40 MG PO SCH (09:36)
[2019-09-28] MEDS: Apixaban* 5 MG TAB PO SCH (09:36)
[2019-09-28] MEDS: OXcarbazepine TAB(*) 300 MG PO SCH (09:36)
[2019-09-28] MEDS: Clopidogrel TAB* 75 MG PO SCH (09:37)
[2019-09-28] MEDS: Metoprolol Succinate XL TAB* 25 MG PO SCH (09:38)
[2019-09-28] MEDS: Sertraline* 50 MG TAB PO SCH (09:38)
[2019-09-28] MEDS: predniSONE TAB* 20 MG PO SCH (09:39)
[2019-09-28] MEDS: Cholecalciferol TAB* 1000 UNITS PO SCH (09:39)
[2019-09-28] MEDS: Gabapentin CAP(*) 300 MG PO SCH (09:39)
[2019-09-28] MEDS: Digoxin TAB* 0.125 MG PO SCH (09:40)
[2019-09-28] MEDS: Tamsulosin CAP* 0.4 MG PO SCH (09:41)
[2019-09-28] MEDS: Pantoprazole TAB * 40 MG TAB PO SCH (09:41)
[2019-09-28] MEDS: Insulin GLARGINE(*) 1 UNITS UNIT SUBCUT SCH (09:42)
[2019-09-28] MEDS: Nicotine PATCH 7 MG/24 HR* PATCH TRANSDERM SCH (09:46)
[2019-09-28] MEDS: GENTAMICIN 0.1% TOPICAL SCH (09:48)
[2019-09-28] MEDS: Insulin LISPRO* 1 UNITS UNIT SUBCUT SCH ×2 (09:53→11:41)
[2019-09-28] MEDS: LORazepam TAB(*) 0.5 MG PO PRN (11:14)
[2019-09-28] MEDS: HYDROcodone/ACETAMIN 5-325 MG* 1 TAB PO PRN (11:14)
--- NOTE | 2019-09-28 12:03 | PN ---
Subjective Date of Service: 09/28/19 Interval History: Time spent on discharge including exam of patient, discussion with patient, , nurse, CM, pharmacist, review of EHR and preparation of discharge documents is 50 minutes. Family History: Unchanged from Admission Social History: Unchanged from Admission Past Medical History: Unchanged from Admission Objective Active Medications: Acetaminophen (Tylenol Tab*) 650 mg PO Q4H PRN PRN Reason: FEVER/PAIN Hydrocodone Bitart/Acetaminophen ([place] 5-325 Tab*) 1 tab PO Q3H PRN PRN Reason: PAIN - MODERATE Last Admin: 09/28/19 11:14 Dose: 1 tab Albuterol (Ventolin 2.5 Mg/3 Ml Neb.Jessika*) 2.5 mg INH Q2HR PRN PRN Reason: SHORTNESS OF BREATH Last Admin: 09/27/19 22:57 Dose: 2.5 mg Albuterol (Ventolin 2.5 Mg/3 Ml Neb.Jessika*) 2.5 mg INH [id number] AWAKE [facility] Last Admin: 09/28/19 08:15 Dose: 2.5 mg Amlodipine Besylate (Norvasc Tab*) 2.5 mg PO DAILY [facility] Last Admin: 09/28/19 09:35 Dose: 2.5 mg Apixaban (Eliquis*) 5 mg PO BID [facility] Last Admin: 09/28/19 09:36 Dose: 5 mg Atorvastatin Calcium (Lipitor*) 10 mg PO BEDTIME [facility] Last Admin: 09/27/19 21:51 Dose: 10 mg Cholecalciferol (Vitamin D Tab*) 2,000 units PO DAILY [facility] Last Admin: 09/28/19 09:39 Dose: 2,000 units Clopidogrel Bisulfate (Plavix Tab*) 75 mg PO DAILY [facility] Last Admin: 09/28/19 09:37 Dose: 75 mg Digoxin (Lanoxin Tab*) 0.125 mg PO DAILY [facility] Last Admin: 09/28/19 09:40 Dose: 0.125 mg Furosemide (Lasix Tab*) 80 mg PO 1700 [facility] Last Admin: 09/27/19 17:43 Dose: 80 mg Furosemide (Lasix Tab*) 80 mg PO DAILY [facility] Last Admin: 09/28/19 09:36 Dose: 80 mg Gabapentin (Neurontin Cap(*)) 600 mg PO BID [facility] Last Admin: 09/28/19 09:39 Dose: 600 mg Cefazolin Sodium/Dextrose (Kefzol 2 Gm Premix In Ors(*)) 2 gm in 50 mls @ 100 mls/hr IVPB Q8H [facility] Last Admin: 09/28/19 10:05 Dose: 100 mls/hr Insulin Glargine (Lantus(*)) 44 units SUBCUT QAM [facility] Last Admin: 09/28/19 09:42 Dose: 44 units Insulin Glargine (Lantus(*)) 20 units SUBCUT QPM [facility] Last Admin: 09/27/19 18:15 Dose: 20 units Insulin Human Lispro (Humalog*) 0 units SUBCUT ACHS [facility]; Protocol Last Admin: 09/28/19 11:41 Dose: 3 units Loperamide HCl (Imodium Cap*) 2 mg PO Q6H PRN PRN Reason: DIARRHEA Lorazepam (Ativan Tab(*)) 0.5 mg PO TID PRN PRN Reason: ANXIETY Last Admin: 09/28/19 11:14 Dose: 0.5 mg Metoprolol Succinate (Toprol Xl Tab*) 75 mg PO BID [facility] Last Admin: 09/28/19 09:38 Dose: 75 mg Mometasone Furoate (Asmanex 220 Mcg Mdi *) 1 puff INH BID [facility]; Protocol Last Admin: 09/28/19 08:16 Dose: 1 puff Nicotine (Nicotine Patch 7 Mg/24 Hr*) 1 patch TRANSDERM DAILY [facility] Last Admin: 09/28/19 09:46 Dose: 1 patch Non Formulary Med* Gentamicin 0.1% Cream 1 admin TOPICAL TID [facility] Last Admin: 09/28/19 09:48 Dose: 1 admin Oxcarbazepine (Trileptal Tab(*)) 300 mg PO BID [facility] Last Admin: 09/28/19 09:36 Dose: 300 mg Pantoprazole Sodium (Protonix Tab*) 40 mg PO DAILY [facility] Last Admin: 09/28/19 09:41 Dose: 40 mg Sertraline HCl (Zoloft*) 50 mg PO DAILY [facility] Last Admin: 09/28/19 09:38 Dose: 50 mg Tamsulosin HCl (Flomax Cap*) 0.4 mg PO DAILY [facility] Last Admin: 09/28/19 09:41 Dose: 0.4 mg Tiotropium [place]/Olodaterol (Stiolto Respimat Inh [place] (60 Puff)) 2 puff INH DAILY [facility] Last Admin: 09/28/19 08:16 Dose: 2 puff Vital Signs - 8 hr 09/28/19 09/28/19 09/28/19 07:15 07:49 08:18 Temperature 97.3 F Pulse Rate 67 68 Respiratory 20 20 16 Rate Blood Pressure 133/59 (mmHg) O2 Sat by Pulse 97 97 Oximetry 09/28/19 09/28/19 09/28/19 09:39 09:40 11:14 Temperature Pulse Rate 70 Respiratory 18 18 Rate Blood Pressure (mmHg) O2 Sat by Pulse Oximetry Oxygen Devices in Use Now: Nasal Cannula Result Diagrams: 09/26/19 05:34 09/26/19 05:34 Additional Lab and Data: Lab Results 09/22/19 09/22/19 09/22/19 Range/Units 18:15 18:15 18:15 WBC 8.6 (3.5-10.8) 10^3/uL RBC 4.35 (4.18-5.48) 10^6 /uL Hgb 11.9 L (14.0-18.0) g/dL Hct 38 L (42-52) % MCV 87 (80-94) fL MCH 27 (27-31) pg MCHC 32 (31-36) g/dL RDW 19 H (10-15) % Plt Count 166 (150-450) 10^3/uL MPV 10.0 (7.4-10.4) fL Neut % (Auto) 90.0 % Lymph % (Auto) 5.0 % [place] % (Auto) 3.7 % Eos % (Auto) 0.5 % Baso % (Auto) 0.8 % Absolute Neuts (auto) 7.8 H (1.5-7.7) 10^3/ul Absolute Lymphs (auto) 0.4 L (1.0-4.8) 10^3/ul Absolute Monos (auto) 0.3 (0-0.8) 10^3/ul Absolute Eos (auto) 0.0 (0-0.6) 10^3/ul Absolute Basos (auto) 0.1 (0-0.2) 10^3/ul Absolute Nucleated RBC 0.0 10^3/ul Nucleated RBC % 0.1 Sodium 136 (135-145) mmol/L Potassium 4.8 (3.5-5.0) mmol/L Chloride 95 L (101-111) mmol/L Carbon Dioxide 28 (22-32) mmol/L Anion Gap 13 H (2-11) mmol/L BUN 30 H (6-24) mg/dL Creatinine 1.64 H (0.67-1.17) mg/dL Est GFR ( Amer) 50.7 (>60) Est GFR (Non-Af Amer) 41.9 (>60) BUN/Creatinine Ratio 18.3 (8-20) Glucose 528 H* (70-100) mg/dL Calcium 9.3 (8.6-10.3) mg/dL Total Bilirubin 1.00 (0.2-1.0) mg/dL AST 19 (13-39) U/L ALT 12 (7-52) U/L Alkaline Phosphatase 161 H (34-104) U/L Troponin I 0.05 H* (<0.03) ng/mL B-Natriuretic Peptide > 1300 H (<=100) pg/mL Total Protein 7.0 (6.4-8.9) g/dL Albumin 4.0 (3.2-5.2) g/dL Globulin 3.0 (2-4) g/dL Albumin/Globulin Ratio 1.3 (1-3) Microbiology and Other Data: Microbiology 09/23/19 05:56 Gram Stain - Final Elbow Left Assess/Plan/Problems-Billing Assessment: Mr. Berrios is a 68 y.o male with a past medical hx of systolic CHF, HTN, DM type 2, afib, JOSIAH, GERD who presented to the ER with shortness of breath found to have an exacerbation of CHF. Status and Disposition: inpatient - likely discharge home in the AM
[2019-09-28 12:04] VITALS: BP 129/44
--- NOTE | 2019-09-28 12:45 | DS ---
CC: Dr. Pugh * DISCHARGE SUMMARY: DATE OF ADMISSION: DATE OF DISCHARGE: 09/28/19 HISTORY OF PRESENT ILLNESS/HOSPITAL COURSE: This 68-year-old man presented with shortness of breath. The history is detailed in the dictated admission note. He was felt to have acute on chronic congestive heart failure. He was started on diuretics. He had a long history of left elbow infection with oozing. He had a CT scan of the left upper extremity. This showed subcutaneous edema and inflammatory change central to the olecranon process of the ulna and distal left arm. There was no organized fluid collection. There was cortical irregularity of the ventral aspect of the olecranon process of the ulna. MRI was recommended to clarify if this was indicative of osteomyelitis or not. The patient was very claustrophobic and would need to be sedated for the MRI, and would be a very high risk because of his combination of COPD and congestive heart failure for being sedated and placed horizontal in an MRI, so this was deferred. Dr. Pugh saw him in consultation. He is recommending 5 weeks of treatment with oral cephalexin 500 mg b.i.d. following the discharge. The patient was treated with cefazolin in the hospital. Wound culture from the left elbow grew out Staphylococcus aureus. Two sets of blood cultures were no growth. Staphylococcus aureus was oxacillin sensitive. FINAL DIAGNOSES: 1. Acute on chronic respiratory failure with hypoxia. 2. Acute on chronic systolic heart failure. 3. Infection of the left elbow. 4. Chronic obstructive pulmonary disease. 5. Hypertension. 6. Sleep apnea. 7. Atrial fibrillation. 8. Coronary artery disease. 9. Chronic kidney disease. 10. Gastroesophageal reflux disease. DISCHARGE MEDICATIONS: 1. Furosemide 80 mg b.i.d. 2. Cephalexin 500 mg b.i.d. for 5 weeks. 3. Pantoprazole 40 mg daily. 4. Atorvastatin 10 mg h.s. 5. Apixaban 5 mg b.i.d. 6. Tamsulosin 0.4 mg daily. 7. Digoxin 0.125 mg daily. 8. Oxcarbazepine 300 mg b.i.d. 9. Metoprolol succinate 100 mg b.i.d. 10. Loperamide 2 mg every 6 hours p.r.n. 11. Vitamin D 2000 units daily. 12. Amlodipine 2.5 mg daily. 13. Clopidogrel 75 mg daily. 14. Sertraline 50 mg daily. 15. Albuterol 2.5 mg/3 mL by nebulizer every 2 hours p.r.n. 16. Hydrocodone/acetaminophen 7.5/325 one every 6 hours p.r.n. 17. Mometasone 2 puffs b.i.d. 18. Acetaminophen 650 mg every 4 hours p.r.n. 19. Gabapentin 600 mg b.i.d. 20. Glargine insulin 14 units every evening and 44 units every morning. 21. Lispro by sliding scale. 22. Lorazepam 0.5 mg t.i.d. p.r.n. CONDITION ON DISCHARGE: Stable. DISPOSITION ON DISCHARGE: Discharged home. [id number]/[facility] #: [id number]
== END 2019-09-28 13:05 | disposition home or self-care (01) | DRG 291 ==
LOC: ED 18:12 → MEDTELE 22:17
PROVIDERS: ADMIT Internal Medicine; ATTEND Internal Medicine
DX: I13.0 Hypertensive heart and chronic kidney disease with heart failure and stage 1 through stage 4 chronic kidney disease, or unspecified chronic kidney disease (principal); J96.21 Acute and chronic respiratory failure with hypoxia; I50.23 Acute on chronic systolic (congestive) heart failure; M86.18 Other acute osteomyelitis, other site; M00.022 Staphylococcal arthritis, left elbow; I25.10 Atherosclerotic heart disease of native coronary artery without angina pectoris; E11.22 Type 2 diabetes mellitus with diabetic chronic kidney disease; E11.42 Type 2 diabetes mellitus with diabetic polyneuropathy; E78.5 Hyperlipidemia, unspecified; M70.22 Olecranon bursitis, left elbow; I48.91 Unspecified atrial fibrillation; N18.3 Chronic kidney disease, stage 3 (moderate); G47.33 Obstructive sleep apnea (adult) (pediatric); K21.9 Gastro-esophageal reflux disease without esophagitis; J44.9 Chronic obstructive pulmonary disease, unspecified; R74.8 Abnormal levels of other serum enzymes; B95.61 Methicillin susceptible Staphylococcus aureus infection as the cause of diseases classified elsewhere; Z86.19 Personal history of other infectious and parasitic diseases; Z95.5 Presence of coronary angioplasty implant and graft; Z79.01 Long term (current) use of anticoagulants; Z79.1 Long term (current) use of non-steroidal anti-inflammatories (NSAID); Z79.02 Long term (current) use of antithrombotics/antiplatelets; Z79.4 Long term (current) use of insulin; Z79.51 Long term (current) use of inhaled steroids; Z79.899 Other long term (current) drug therapy; Z91.030 Bee allergy status; Z88.5 Allergy status to narcotic agent; Z88.0 Allergy status to penicillin; Z91.013 Allergy to seafood; Z88.8 Allergy status to other drugs, medicaments and biological substances; Z91.018 Allergy to other foods; Z91.048 Other nonmedicinal substance allergy status; Z87.891 Personal history of nicotine dependence
CPT/HCPCS: 36415; 36600; 71045; 80048; 80053; 80162; 82803; 82947; 83880; 84484; 85025; 85027; 85049; 85060; 85652; 86140; 87040; 87070; 87077; 87186; 87205; 93005; 94640; 94660; 99284; A9270-GY; J0690; J1940; J3370; J3535; J7512

== ENCOUNTER 2019-10-16 15:00 | Inpatient (IN) | payer OTHER ==
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
[2019-10-16] MEDS ORDERED: Albuterol/Ipratropium NEB.SOL* Albuterol 2.5 MG/Ipratropium 0.5 MG 3 ML INH ONE ×2 (15:14→18:17)
[2019-10-16] MEDS ORDERED: Acetaminophen TAB* 325 MG PO ONE (15:23)
[2019-10-16 15:35] LABS: ABS Eosinophils 0.1 10^3/ul (0-0.6); ABS Lymphocytes 0.4 10^3/ul (1.0-4.8); ABS Monocytes 0.3 10^3/ul (0-0.8); ABS Neutrophils 6.1 10^3/ul (1.5-7.7); Eosinophil % 1.1 %; Hematocrit 36 % (42-52); Hemoglobin 11.4 g/dL (14.0-18.0); Lymphocyte % 5.2 %; Mean Corpuscular HGB Conc 31 g/dL (31-36); Mean Corpuscular Hemoglobin 26 pg (27-31); Mean Corpuscular Volume 82 fL (80-94); Mean Platelet Volume 9.6 fL (7.4-10.4); Nucleated Red Blood Cells % 0.2; Platelet Count 139 10^3/uL (150-450); Red Blood Count 4.42 10^6 /uL (4.18-5.48); Red Cell Distribution Width 18 % (10-15); White Blood Count 6.9 10^3/uL (3.5-10.8)
[2019-10-16 15:46] LABS: INR 1.91 (0.82-1.09)
[2019-10-16 15:57] LABS: ALT 11 U/L (7-52); AST 14 U/L (13-39); Albumin 4.4 g/dL (3.2-5.2); Albumin/Globulin Ratio 1.6 (1-3); Alkaline Phosphatase 102 U/L (34-104); Anion Gap 8 mmol/L (2-11); BUN/Creatinine Ratio 23.7 (8-20); Blood Urea Nitrogen 37 mg/dL (6-24); CO2 Carbon Dioxide 31 mmol/L (22-32); Calcium 9.5 mg/dL (8.6-10.3); Chloride 100 mmol/L (101-111); EGFR African American 53.7 (>60); EGFR Non-African American 44.3 (>60); Globulin 2.7 g/dL (2-4); Glucose 256 mg/dL (70-100); Potassium 4.7 mmol/L (3.5-5.0); Sodium 139 mmol/L (135-145); Total Protein 7.1 g/dL (6.4-8.9)
[2019-10-16] MEDS ORDERED: Furosemide IV* 10 MG/ML 10 ML VIAL (100 MG) IV ONE (16:14)
[2019-10-16 16:37] LABS: Troponin I 0.05 ng/mL (<0.03)
[2019-10-16] MEDS ORDERED: HYDROcodone/ACETAMIN 5-325 MG* 1 TAB PO ONE (16:47)
[2019-10-16] MEDS ORDERED: fentaNYL* 50 MCG/ML 2 ML VIAL (100 MCG VIAL) IV SLOW PU ONE (16:54)
[2019-10-16] MEDS ORDERED: Morphine 4 MG/ML VIAL (1 ml) 4 MG/ML VIAL IV ONE (16:54)
[2019-10-16] MEDS ORDERED: Benzonatate CAP* 100 MG PO PRN (18:43)
[2019-10-16] MEDS ORDERED: Albuterol 2.5 MG/3 ML NEB.SOL* (0.083%) INH PRN (18:43)
[2019-10-16] MEDS ORDERED: Loperamide CAP* 2 MG PO PRN (18:48)
[2019-10-16] MEDS ORDERED: Simethicone TAB* 80 MG TAB.CHEW PO PRN (18:48)
[2019-10-16] MEDS ORDERED: Dextrose 50% VIAL 50 ml IV PUSH PRN (18:59)
[2019-10-16] MEDS ORDERED: DOXYcycline IV* 100 MG in NS 0.9% 250 ML* 250 ML IVPB SCH (19:00)
[2019-10-16] MEDS: Albuterol/Ipratropium NEB.SOL* Albuterol 2.5 MG/Ipratropium 0.5 MG 3 ML INH SCH ×2 (19:02→22:36)
[2019-10-16 19:34] LABS: Troponin I 0.05 ng/mL (<0.03)
[2019-10-16] MEDS ORDERED: Ondansetron INJ* 2 MG/ML VIAL IV PRN (21:23)
[2019-10-16] MEDS: Furosemide IV* 10 MG/ML VIAL (40 MG) IV SLOW PU SCH (21:42)
[2019-10-16] MEDS: Ondansetron INJ* 2 MG/ML VIAL IV PRN (21:42)
[2019-10-16] MEDS: LORazepam TAB(*) 0.5 MG PO SCH (21:45)
[2019-10-16] MEDS: Metoprolol Succinate XL TAB* 100 MG PO SCH (21:46)
[2019-10-16] MEDS: busPIRone TAB* 10 MG PO SCH (21:46)
[2019-10-16] MEDS: Apixaban* 5 MG TAB PO SCH (21:46)
[2019-10-16] MEDS: guaiFENesin ER TAB 600 MG PO SCH (21:53)
[2019-10-16] MEDS: DOXYcycline IV* 100 MG in NS 0.9% 250 ML* 250 ML IVPB SCH (22:07)
[2019-10-16 22:24] LABS: Influenza A Molecular NEGATIVE (Negative); Influenza B Molecular NEGATIVE (Negative)
[2019-10-16] MEDS: Insulin LISPRO* 1 UNITS UNIT SUBCUT SCH (22:36)
[2019-10-16] MEDS: OXcarbazepine TAB(*) 300 MG PO SCH (22:37)
[2019-10-16] MEDS: Cephalexin CAP* 500 MG PO SCH (22:38)
[2019-10-16] MEDS ORDERED: Albuterol/Ipratropium NEB.SOL* Albuterol 2.5 MG/Ipratropium 0.5 MG 3 ML INH PRN (22:45)
[2019-10-16 23:41] LABS: Troponin I 0.04 ng/mL (<0.03)
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
[2019-10-17 06:22] LABS: ABS Eosinophils 0.1 10^3/ul (0-0.6); ABS Lymphocytes 0.4 10^3/ul (1.0-4.8); ABS Monocytes 0.5 10^3/ul (0-0.8); Eosinophil % 1.2 %; Hematocrit 32 % (42-52); Lymphocyte % 4.9 %; Mean Corpuscular HGB Conc 31 g/dL (31-36); Mean Corpuscular Hemoglobin 26 pg (27-31); Mean Corpuscular Volume 82 fL (80-94); Mean Platelet Volume 9.8 fL (7.4-10.4); Nucleated Red Blood Cells % 0.2; Platelet Count 135 10^3/uL (150-450); Red Blood Count 3.92 10^6 /uL (4.18-5.48); Red Cell Distribution Width 18 % (10-15)
[2019-10-17 06:29] LABS: Anion Gap 6 mmol/L (2-11); BUN/Creatinine Ratio 22.2 (8-20); Blood Urea Nitrogen 42 mg/dL (6-24); CO2 Carbon Dioxide 33 mmol/L (22-32); Calcium 8.9 mg/dL (8.6-10.3); Chloride 102 mmol/L (101-111); EGFR Non-African American 35.5 (>60); Glucose 159 mg/dL (70-100); Magnesium 1.7 mg/dL (1.9-2.7); Potassium 4.6 mmol/L (3.5-5.0); Sodium 141 mmol/L (135-145)
[2019-10-17 06:33] LABS: Troponin I 0.05 ng/mL (<0.03)
[2019-10-17] MEDS ORDERED: Magnesium Sulfate 2 GM IV* 2 GM/50 ML BAG IVPB ONE (07:15)
--- NOTE | 2019-10-17 08:15 | PN ---
Subjective Date of Service: 10/17/19 Interval History: Pt was agitated and refusing BIPAP at night, now sleeping and appears very tired , murmurs when tired to be awaken by staff currently on Oxygen mas at 10 L Objective Active Medications: Acetaminophen (Tylenol Tab*) 650 mg PO Q6H PRN PRN Reason: MILD PAIN or TEMP > 100.4 Hydrocodone Bitart/Acetaminophen (Nortab 7.5/325 Liq*) 15 ml PO Q6HR [facility] Albuterol/Ipratropium (Duoneb (Albuterol 2.5 Mg/Ipratropium 0.5 Mg)) 1 neb INH Q4H PRN PRN Reason: SOB/WHEEZING Amlodipine Besylate (Norvasc Tab*) 2.5 mg PO DAILY [facility] Apixaban (Eliquis*) 5 mg PO BID [facility] Last Admin: 10/16/19 21:46 Dose: 5 mg Atorvastatin Calcium (Lipitor*) 20 mg PO DAILY [facility] Benzonatate (Tessalon Cap*) 100 mg PO BID PRN PRN Reason: COUGH Buspirone HCl (Buspar Tab*) 10 mg PO TID [facility] Last Admin: 10/16/19 21:46 Dose: 10 mg Cephalexin HCl (Keflex Cap*) 500 mg PO BID [facility] Last Admin: 10/16/19 22:38 Dose: 500 mg Cholecalciferol (Vitamin D Tab*) 2,000 units PO QAM [facility] Clopidogrel Bisulfate (Plavix Tab*) 75 mg PO DAILY [facility] Dextrose (Dextrose 50% Vial 50 Ml*) 25 ml IV PUSH .FOR FS < 60 - SS PRN PRN Reason: FS < 60 Digoxin (Lanoxin Tab*) 0.125 mg PO EVERY OTHER DAY [facility] Furosemide (Lasix Iv*) 120 mg IV SLOW PU 0800,1700 [facility] Last Admin: 10/16/19 21:42 Dose: 120 mg Gabapentin (Neurontin Cap(*)) 600 mg PO QPM [facility] Guaifenesin (Mucinex*) 1,200 mg PO BID [facility] Last Admin: 10/16/19 21:53 Dose: 1,200 mg Doxycycline Hyclate 100 mg/ (Sodium Chloride) 250 mls @ 250 mls/hr IVPB Q12HR [facility] Last Admin: 10/16/19 22:07 Dose: 250 mls/hr Insulin Glargine (Lantus(*)) 20 units SUBCUT QAM [facility] Insulin Human Lispro (Humalog*) 0 units SUBCUT ACHS [facility]; Protocol Last Admin: 10/16/19 22:36 Dose: 6 units Loperamide HCl (Imodium Cap*) 2 mg PO Q6H PRN PRN Reason: DIARRHEA Lorazepam (Ativan Tab(*)) 0.5 mg PO TID [facility] Last Admin: 10/16/19 21:45 Dose: 0.5 mg Magnesium Oxide (Magox 400 Tab*) 400 mg PO DAILY [facility] Metoprolol Succinate (Toprol Xl Tab*) 100 mg PO BID [facility] Last Admin: 10/16/19 21:46 Dose: 100 mg Ondansetron HCl (Zofran Inj*) 4 mg IV Q6H PRN PRN Reason: NAUSEA Last Admin: 10/16/19 21:42 Dose: 4 mg Oxcarbazepine (Trileptal Tab(*)) 300 mg PO BID [facility] Last Admin: 10/16/19 22:37 Dose: 300 mg Pantoprazole Sodium (Protonix Tab*) 40 mg PO DAILY [facility] Potassium Chloride (Klor Con Er Tab*) 20 meq PO QPM [facility] Sertraline HCl (Zoloft*) 150 mg PO DAILY [facility] Simethicone (Mylicon Tab*) 80 mg PO ACHS PRN PRN Reason: INDIGESTION Tamsulosin HCl (Flomax Cap*) 0.4 mg PO DAILY [facility] Vital Signs - 8 hr 10/17/19 10/17/19 10/17/19 00:16 00:37 01:00 Temperature Pulse Rate 71 74 77 Respiratory 25 19 20 Rate Blood Pressure 116/54 109/70 (mmHg) O2 Sat by Pulse 91 97 94 Oximetry 10/17/19 10/17/19 10/17/19 01:01 01:03 01:04 Temperature Pulse Rate 68 84 71 Respiratory Rate Blood Pressure 72/56 95/30 100/55 (mmHg) O2 Sat by Pulse 95 96 95 Oximetry 10/17/19 10/17/19 10/17/19 02:00 02:02 02:07 Temperature Pulse Rate 98 75 Respiratory 14 16 27 Rate Blood Pressure 179/163 93/50 (mmHg) O2 Sat by Pulse 93 99 Oximetry 10/17/19 10/17/19 10/17/19 03:00 03:15 03:59 Temperature 97.1 F Pulse Rate 81 76 Respiratory 17 17 Rate Blood Pressure 87/64 (mmHg) O2 Sat by Pulse 96 100 Oximetry 10/17/19 10/17/19 10/17/19 04:00 04:01 04:31 Temperature Pulse Rate 87 70 Respiratory 18 14 16 Rate Blood Pressure 105/61 107/48 (mmHg) O2 Sat by Pulse 92 93 Oximetry 10/17/19 10/17/19 10/17/19 05:00 05:01 05:31 Temperature Pulse Rate 83 98 88 Respiratory 15 21 19 Rate Blood Pressure 104/50 92/38 (mmHg) O2 Sat by Pulse 95 83 99 Oximetry 10/17/19 10/17/19 10/17/19 05:54 06:00 07:33 Temperature 97.8 F Pulse Rate 80 Respiratory 18 16 Rate Blood Pressure 84/57 (mmHg) O2 Sat by Pulse 100 Oximetry 10/17/19 08:08 Temperature Pulse Rate 75 Respiratory 18 Rate Blood Pressure (mmHg) O2 Sat by Pulse 100 Oximetry Oxygen Devices in Use Now: OxyMask Appearance: 68 yo m in nAD, very fatigued and diffucult to get orientation questions due to fatigue Eyes: No Scleral Icterus, PERRLA Ears/Nose/Mouth/Throat: NL Teeth, Lips, Gums, Mucous Membranes Moist Neck: NL Appearance and Movements; NL JVP, Trachea Midline Respiratory: Symmetrical Chest Expansion and Respiratory Effort, - - crackles at b/l bases Cardiovascular: - - irregular Abdominal: NL Sounds; No Tenderness; No Distention, No Hepatosplenomegaly Lymphatic: No Cervical Adenopathy Extremities: No Edema, No Clubbing, Cyanosis Skin: No Rash or Ulcers, No Nodules or Sclerosis Neurological: NL Muscle Strength and Tone Result Diagrams: 10/17/19 05:57 10/17/19 05:57 Assess/Plan/Problems-Billing Assessment: Mr. Berrios is a 68 y.o male with a past medical hx of systolic CHF, HTN, DM type 2, afib, JOSIAH, GERD who presented to the ER with shortness of breath found to have an exacerbation of CHF. [place] [facility] [place] 35 days of Keflex PO for L olecranon bursitis/ possible osteo(MSSA+) - Patient Problems (1) Acute and chronic respiratory failure with hypoxia Comment: -Secondary to CHF exacerbation. -Initially required BIPAP on admission, transitioned to face mask while awake tolerating well, will reeval in PM if able to transfer out of ICU -Will continue daily weights, Strict I/O's -Lasix IV on admission -cont (2) Acute on chronic systolic heart failure Comment: - Echo done in showed no significant changes from 2017- EF 40-45% - BUN/Creatinine - with mild elevation from baseline will decrease lasix to 80mg BID as patient appears euvolemic - at baseline - o2 via NC at 3.5 liters (3) Confusion Comment: -He appears to have some degree of chronic, mild cognitive impairment, now exacerbated in the setting of hypoxia and multiple hospital admissions. (4) Infection of left elbow Comment: infected olecranon bursitis noted 09/28/19-appears to heve resolved -cont PO keflex for 28 days for MSSA infection of left elbow (5) Atrial fibrillation Comment: -Rate controlled. -Continue Apixaban, digoxin and Metoprolol. (6) CKD (chronic kidney disease) stage 3, GFR 30-59 ml/min Comment: - slightly above average creatinine - will continue to monitor (7) COPD (chronic obstructive pulmonary disease) Comment: - Uses supplemental O2 at home 3.5 liters at baseline - mild-moderate COPD exacerbation-cont doxy started at admission, adding Prednisone 50 mg daily (8) Type 2 diabetes mellitus Comment: -cont Lantus and ISS -Metformin on hold (9) Anemia Comment: chronic , normocytic, Hb at baseline 10-11 (10) JOSIAH (obstructive sleep apnea) Comment: has BIPAP at night for home, but poor compliance at home -refused it last night". (11) DVT prophylaxis Comment: -Apixaban. Status and Disposition: inpatient
[2019-10-17] MEDS: HYDROcodone/ACET. 7.5/325 LIQ* 15 ML UDC PO SCH ×4 (08:45→17:16)
[2019-10-17] MEDS ORDERED: Tiotropium Brom/Olodaterol MDI INH SCH (09:00)
[2019-10-17] MEDS: Insulin LISPRO* 1 UNITS UNIT SUBCUT SCH ×4 (09:20→20:00)
[2019-10-17] MEDS: Insulin GLARGINE(*) 1 UNITS UNIT SUBCUT SCH (09:22)
[2019-10-17] MEDS: Apixaban* 5 MG TAB PO SCH ×2 (09:32→21:10)
[2019-10-17] MEDS: LORazepam TAB(*) 0.5 MG PO SCH ×3 (09:33→21:11)
[2019-10-17] MEDS: busPIRone TAB* 10 MG PO SCH ×3 (09:33→21:11)
[2019-10-17] MEDS: Clopidogrel TAB* 75 MG PO SCH (09:44)
[2019-10-17] MEDS: amLODIPine TAB* 5 MG PO SCH (09:45)
[2019-10-17] MEDS: Pantoprazole TAB * 40 MG TAB PO SCH (09:46)
[2019-10-17] MEDS: Metoprolol Succinate XL TAB* 100 MG PO SCH ×2 (09:46→21:25)
[2019-10-17] MEDS: guaiFENesin ER TAB 600 MG PO SCH ×2 (09:46→21:10)
[2019-10-17] MEDS: Magnesium Oxide TAB* 400 MG PO SCH (09:47)
[2019-10-17] MEDS: Atorvastatin* 20 MG TAB PO SCH (09:47)
[2019-10-17] MEDS: Sertraline* 100 MG TAB PO SCH (09:47)
[2019-10-17] MEDS: Tamsulosin CAP* 0.4 MG PO SCH (09:50)
[2019-10-17] MEDS: Cholecalciferol TAB* 1000 UNITS PO SCH (09:50)
[2019-10-17] MEDS: Acetaminophen TAB* 325 MG PO PRN (10:18)
[2019-10-17] MEDS: OXcarbazepine TAB(*) 300 MG PO SCH ×2 (10:18→21:10)
[2019-10-17] MEDS: Cephalexin CAP* 500 MG PO SCH ×2 (10:18→21:10)
[2019-10-17] MEDS: DOXYcycline IV* 100 MG in NS 0.9% 250 ML* 250 ML IVPB SCH ×2 (10:28→20:53)
[2019-10-17] MEDS ORDERED: Furosemide IV* 10 MG/ML VIAL (40 MG) IV SLOW PU SCH (17:00)
[2019-10-17] MEDS: Potassium Chlor TAB* 10 MEQ TAB.ER PO SCH (17:09)
[2019-10-17] MEDS: Gabapentin CAP(*) 300 MG PO SCH (17:09)
[2019-10-18] MEDS: HYDROcodone/ACET. 7.5/325 LIQ* 15 ML UDC PO SCH ×4 (00:09→19:32)
[2019-10-18 04:23] LABS: ABS Lymphocytes 0.4 10^3/ul (1.0-4.8); ABS Monocytes 0.7 10^3/ul (0-0.8); Eosinophil % 0.2 %; Hematocrit 33 % (42-52); Hemoglobin 10.4 g/dL (14.0-18.0); Lymphocyte % 3.7 %; Mean Corpuscular HGB Conc 31 g/dL (31-36); Mean Corpuscular Hemoglobin 26 pg (27-31); Mean Corpuscular Volume 82 fL (80-94); Mean Platelet Volume 9.9 fL (7.4-10.4); Nucleated Red Blood Cells % 0.3; Platelet Count 149 10^3/uL (150-450); Red Blood Count 4.07 10^6 /uL (4.18-5.48); Red Cell Distribution Width 19 % (10-15); White Blood Count 10.1 10^3/uL (3.5-10.8)
[2019-10-18 04:33] LABS: CO2 Carbon Dioxide 24 mmol/L (22-32); Calcium 8.1 mg/dL (8.6-10.3); Chloride 103 mmol/L (101-111); Sodium 135 mmol/L (135-145)
[2019-10-18 04:38] LABS: BUN/Creatinine Ratio 25.4 (8-20); Blood Urea Nitrogen 51 mg/dL (6-24); EGFR African American 40.1 (>60); EGFR Non-African American 33.1 (>60); Glucose 161 mg/dL (70-100)
[2019-10-18 04:39] LABS: Anion Gap 8 mmol/L (2-11)
--- NOTE | 2019-10-18 08:22 | PN ---
Subjective Date of Service: 10/18/19 Interval History: Pt is seen with by the bedside. concerned that pt had no been really awake or interactive since yesterday.Pt is asleep , occasionally turns in bed, opens eyes to command, oxy mask on , not verbal today Objective Active Medications: Acetaminophen (Tylenol Tab*) 650 mg PO Q6H PRN PRN Reason: MILD PAIN or TEMP > 100.4 Last Admin: 10/17/19 10:18 Dose: 650 mg Hydrocodone Bitart/Acetaminophen (Nortab 7.5/325 Liq*) 15 ml PO Q6HR [facility] Last Admin: 10/18/19 06:50 Dose: 1 units Albuterol/Ipratropium (Duoneb (Albuterol 2.5 Mg/Ipratropium 0.5 Mg)) 1 neb INH Q4H PRN PRN Reason: SOB/WHEEZING Last Admin: 10/17/19 13:43 Dose: 1 neb Amlodipine Besylate (Norvasc Tab*) 2.5 mg PO DAILY [facility] Last Admin: 10/17/19 09:45 Dose: 2.5 mg Apixaban (Eliquis*) 5 mg PO BID [facility] Last Admin: 10/17/19 21:10 Dose: 5 mg Atorvastatin Calcium (Lipitor*) 20 mg PO DAILY [facility] Last Admin: 10/17/19 09:47 Dose: 20 mg Benzonatate (Tessalon Cap*) 100 mg PO BID PRN PRN Reason: COUGH Buspirone HCl (Buspar Tab*) 10 mg PO TID [facility] Last Admin: 10/17/19 21:11 Dose: 10 mg Cephalexin HCl (Keflex Cap*) 500 mg PO BID [facility] Last Admin: 10/17/19 21:10 Dose: 500 mg Cholecalciferol (Vitamin D Tab*) 2,000 units PO QAM [facility] Last Admin: 10/17/19 09:50 Dose: 2,000 units Clopidogrel Bisulfate (Plavix Tab*) 75 mg PO DAILY [facility] Last Admin: 10/17/19 09:44 Dose: 75 mg Dextrose (Dextrose 50% Vial 50 Ml*) 25 ml IV PUSH .FOR FS < 60 - SS PRN PRN Reason: FS < 60 Digoxin (Lanoxin Tab*) 0.125 mg PO EVERY OTHER DAY [facility] Furosemide (Lasix Tab*) 40 mg PO QAM [facility] Furosemide (Lasix Tab*) 80 mg PO BID [facility] Gabapentin (Neurontin Cap(*)) 600 mg PO QPM [facility] Last Admin: 10/17/19 17:09 Dose: 600 mg Guaifenesin (Mucinex*) 1,200 mg PO BID [facility] Last Admin: 10/17/19 21:10 Dose: 1,200 mg Doxycycline Hyclate 100 mg/ (Sodium Chloride) 250 mls @ 250 mls/hr IVPB Q12HR [facility] Last Admin: 10/17/19 20:53 Dose: 250 mls/hr Sodium Chloride (Ns 0.9% 1000 Ml) 1,000 mls @ 50 mls/hr IV .PER RATE [facility] Insulin Glargine (Lantus(*)) 20 units SUBCUT QAM [facility] Last Admin: 10/17/19 09:22 Dose: 20 unit Insulin Human Lispro (Humalog*) 0 units SUBCUT ACHS [facility]; Protocol Last Admin: 10/17/19 20:00 Dose: 6 units Loperamide HCl (Imodium Cap*) 2 mg PO Q6H PRN PRN Reason: DIARRHEA Lorazepam (Ativan Tab(*)) 0.5 mg PO TID [facility] Last Admin: 10/17/19 21:11 Dose: 0.5 mg Magnesium Oxide (Magox 400 Tab*) 400 mg PO DAILY [facility] Last Admin: 10/17/19 09:47 Dose: 400 mg Metoprolol Succinate (Toprol Xl Tab*) 100 mg PO BID [facility] Last Admin: 10/17/19 21:25 Dose: 100 mg Ondansetron HCl (Zofran Inj*) 4 mg IV Q6H PRN PRN Reason: NAUSEA Last Admin: 10/16/19 21:42 Dose: 4 mg Oxcarbazepine (Trileptal Tab(*)) 300 mg PO BID [facility] Last Admin: 10/17/19 21:10 Dose: 300 mg Pantoprazole Sodium (Protonix Tab*) 40 mg PO DAILY [facility] Last Admin: 10/17/19 09:46 Dose: 40 mg Potassium Chloride (Klor Con Er Tab*) 20 meq PO QPM [facility] Last Admin: 10/17/19 17:09 Dose: 20 meq Prednisone (Deltasone Tab*) 50 mg PO DAILY [facility] Last Admin: 10/17/19 10:18 Dose: 50 mg Sertraline HCl (Zoloft*) 150 mg PO DAILY [facility] Last Admin: 10/17/19 09:47 Dose: 150 mg Simethicone (Mylicon Tab*) 80 mg PO ACHS PRN PRN Reason: INDIGESTION Tamsulosin HCl (Flomax Cap*) 0.4 mg PO DAILY [facility] Last Admin: 10/17/19 09:50 Dose: 0.4 mg Vital Signs - 8 hr 10/18/19 10/18/19 10/18/19 01:00 01:01 02:00 Temperature Pulse Rate 75 77 83 Respiratory 22 19 12 Rate Blood Pressure 107/48 113/68 (mmHg) O2 Sat by Pulse 98 97 96 Oximetry 10/18/19 10/18/19 10/18/19 03:00 03:14 04:00 Temperature 96.7 F Pulse Rate 92 78 Respiratory 21 15 Rate Blood Pressure 110/64 118/63 (mmHg) O2 Sat by Pulse 92 99 Oximetry 10/18/19 10/18/19 10/18/19 05:00 05:40 06:00 Temperature Pulse Rate 85 87 74 Respiratory 16 18 20 Rate Blood Pressure 95/44 97/58 (mmHg) O2 Sat by Pulse 86 91 94 Oximetry 10/18/19 10/18/19 10/18/19 06:50 07:00 07:02 Temperature Pulse Rate 78 80 Respiratory 18 20 15 Rate Blood Pressure 113/58 (mmHg) O2 Sat by Pulse 91 95 Oximetry 10/18/19 07:54 Temperature 96.2 F Pulse Rate Respiratory Rate Blood Pressure (mmHg) O2 Sat by Pulse Oximetry Oxygen Devices in Use Now: OxyMask Appearance: 68 yo M in NAD, lethargic, nonverbal Eyes: No Scleral Icterus, PERRLA Ears/Nose/Mouth/Throat: NL Teeth, Lips, Gums, Mucous Membranes Moist Neck: NL Appearance and Movements; NL JVP, Trachea Midline Respiratory: Symmetrical Chest Expansion and Respiratory Effort, - - crackles at b/l bases, but mostly clear Cardiovascular: - - irregular Abdominal: NL Sounds; No Tenderness; No Distention, No Hepatosplenomegaly Lymphatic: No Cervical Adenopathy Extremities: No Edema, No Clubbing, Cyanosis Skin: No Rash or Ulcers, No Nodules or Sclerosis Neurological: NL Muscle Strength and Tone Result Diagrams: 10/18/19 04:10 10/18/19 04:10 Assess/Plan/Problems-Billing Assessment: Mr. Berrios is a 68 y.o male with a past medical hx of systolic CHF, HTN, DM type 2, afib, JOSIAH, GERD who presented to the ER with shortness of breath found to have an exacerbation of CHF. [place] [facility] [place] 35 days of Keflex PO for L olecranon bursitis/ possible osteo(MSSA+) - Patient Problems (1) Acute and chronic respiratory failure with hypoxia Comment: -Secondary to CHF exacerbation. -Initially required BIPAP on admission, transitioned to face mask 10/17, than BIPAP in PM, today on face mask -Will continue daily weights, Strict I/O's -Lasix IV on admission -will d/c due to increase in BUN/creat. Going back to PO home Lasix dose (2) Acute on chronic systolic heart failure Comment: - Echo done in showed no significant changes from 2017- EF 40-45% - BUN/Creatinine - with mild elevation from baseline will restar PO Lasix . Due to lethargy and low PO intake , will start gentle IVF - at baseline - o2 via NC at 3.5 liters (3) Confusion Comment: -He appears to have some degree of chronic, mild cognitive impairment, now exacerbated in the setting of hypoxia and multiple hospital admissions. Suspect either delirium or C02 retention-ABG pending (4) Infection of left elbow Comment: infected olecranon bursitis noted 09/28/19-appears to have resolved on exam, but today as per d/w pt still has problems with pain and recurring infection whenever tries to d/c antibiotics -cont PO keflex (5) Atrial fibrillation Comment: -Rate controlled. -Continue Apixaban, digoxin and Metoprolol. (6) CKD (chronic kidney disease) stage 3, GFR 30-59 ml/min Comment: - slightly above average creatinine - will continue to monitor (7) COPD (chronic obstructive pulmonary disease) Comment: - Uses supplemental O2 at home 3.5 liters at baseline - mild-moderate COPD exacerbation-cont doxy started at admission, Prednisone 50 mg daily (8) Type 2 diabetes mellitus Comment: -cont Lantus and ISS -Metformin on hold (9) Anemia Comment: chronic , normocytic, Hb at baseline 10-11 (10) JOSIAH (obstructive sleep apnea) Comment: has BIPAP at night for home, but poor compliance at home -as per :she gives him lorazepam at night and when he is asleep she puts the mask on, he usually takes it off after a few hours (11) DVT prophylaxis Comment: -Apixaban. Status and Disposition: inpatient
[2019-10-18] MEDS: NS 0.9% 1000 ML** 1,000 ML IV SCH (08:53)
[2019-10-18] MEDS ORDERED: Lorazepam PYXIS KEY PRN (08:59)
[2019-10-18] MEDS ORDERED: LORazepam INJ* 2 MG/ML 1 ML VIAL IV PUSH ONE (08:59)
[2019-10-18] MEDS ORDERED: Furosemide TAB* 40 MG PO SCH (09:00)
[2019-10-18] MEDS: DOXYcycline IV* 100 MG in NS 0.9% 250 ML* 250 ML IVPB SCH ×2 (09:13→21:13)
[2019-10-18] MEDS: Insulin LISPRO* 1 UNITS UNIT SUBCUT SCH ×4 (09:30→21:32)
[2019-10-18] MEDS: Insulin GLARGINE(*) 1 UNITS UNIT SUBCUT SCH (09:44)
[2019-10-18] MEDS: Sertraline* 100 MG TAB PO SCH (11:42)
[2019-10-18] MEDS: Apixaban* 5 MG TAB PO SCH ×2 (11:43→21:12)
[2019-10-18] MEDS: Digoxin TAB* 0.125 MG PO SCH (11:43)
[2019-10-18] MEDS: Atorvastatin* 20 MG TAB PO SCH (11:44)
[2019-10-18] MEDS: Clopidogrel TAB* 75 MG PO SCH (11:44)
[2019-10-18] MEDS: amLODIPine TAB* 5 MG PO SCH (11:44)
[2019-10-18] MEDS: Tamsulosin CAP* 0.4 MG PO SCH (11:45)
[2019-10-18] MEDS: Metoprolol Succinate XL TAB* 100 MG PO SCH ×2 (11:45→21:13)
[2019-10-18] MEDS: Magnesium Oxide TAB* 400 MG PO SCH (11:46)
[2019-10-18] MEDS: busPIRone TAB* 10 MG PO SCH ×3 (11:46→21:13)
[2019-10-18] MEDS: Pantoprazole TAB * 40 MG TAB PO SCH (11:47)
[2019-10-18] MEDS: guaiFENesin ER TAB 600 MG PO SCH ×2 (11:47→21:13)
[2019-10-18] MEDS: LORazepam TAB(*) 0.5 MG PO SCH ×3 (11:47→21:12)
[2019-10-18] MEDS: Cephalexin CAP* 500 MG PO SCH ×2 (11:48→21:13)
[2019-10-18] MEDS: OXcarbazepine TAB(*) 300 MG PO SCH ×2 (11:48→21:13)
[2019-10-18] MEDS: Furosemide TAB* 40 MG PO SCH ×2 (12:01→21:33)
[2019-10-18] MEDS: Cholecalciferol TAB* 1000 UNITS PO SCH (12:35)
[2019-10-18] MEDS: Potassium Chlor TAB* 10 MEQ TAB.ER PO SCH (18:26)
[2019-10-18] MEDS: Gabapentin CAP(*) 300 MG PO SCH (18:26)
[2019-10-19] MEDS: HYDROcodone/ACET. 7.5/325 LIQ* 15 ML UDC PO SCH ×2 (00:29→05:53)
[2019-10-19] MEDS: NS 0.9% 1000 ML** 1,000 ML IV SCH (04:57)
[2019-10-19 05:50] LABS: Urine Appearance Clear; Urine Bilirubin Negative (Negative); Urine Blood Negative (Negative); Urine Color Yellow; Urine Glucose Negative (Negative); Urine Ketones Negative (Negative); Urine Nitrite Negative (Negative); Urine Protein Negative (Negative); Urine Specific Gravity 1.014 (1.010-1.030); Urine Urobilinogen Negative (Negative)
[2019-10-19 06:31] LABS: CO2 Carbon Dioxide 19 mmol/L (22-32); Calcium 8.3 mg/dL (8.6-10.3); Chloride 105 mmol/L (101-111); Sodium 136 mmol/L (135-145)
[2019-10-19 06:37] LABS: BUN/Creatinine Ratio 29.2 (8-20); Blood Urea Nitrogen 64 mg/dL (6-24); EGFR African American 36.2 (>60); EGFR Non-African American 29.9 (>60); Glucose 73 mg/dL (70-100)
[2019-10-19 06:39] LABS: Anion Gap 12 mmol/L (2-11)
[2019-10-19 06:40] LABS: ABS Basophils 0.1 10^3/ul (0-0.2); ABS Lymphocytes 0.5 10^3/ul (1.0-4.8); ABS Monocytes 0.8 10^3/ul (0-0.8); ABS Neutrophils 8.9 10^3/ul (1.5-7.7); Eosinophil % 0.1 %; Hematocrit 35 % (42-52); Hemoglobin 10.5 g/dL (14.0-18.0); Lymphocyte % 5.2 %; Mean Corpuscular HGB Conc 30 g/dL (31-36); Mean Corpuscular Hemoglobin 26 pg (27-31); Mean Corpuscular Volume 86 fL (80-94); Nucleated Red Blood Cells % 0.3; Platelet Count 167 10^3/uL (150-450); Red Blood Count 4.08 10^6 /uL (4.18-5.48); Red Cell Distribution Width 19 % (10-15); White Blood Count 10.4 10^3/uL (3.5-10.8)
[2019-10-19] MEDS ORDERED: NS 0.9% 1000 ML** 1,000 ML IV SCH (08:41)
[2019-10-19] MEDS: Insulin LISPRO* 1 UNITS UNIT SUBCUT SCH ×4 (09:37→21:09)
--- NOTE | 2019-10-19 09:39 | PN ---
Subjective Date of Service: 10/19/19 Interval History: pt is more lethargic this aM, was on BIPAP intermittently during the night. awakes to voice and is able to follow simple commands Objective Active Medications: Acetaminophen (Tylenol Tab*) 650 mg PO Q6H PRN PRN Reason: MILD PAIN or TEMP > 100.4 Last Admin: 10/17/19 10:18 Dose: 650 mg Hydrocodone Bitart/Acetaminophen (Nortab 7.5/325 Liq*) 15 ml PO Q6HR [facility] Last Admin: 10/19/19 05:53 Dose: 1 units Albuterol/Ipratropium (Duoneb (Albuterol 2.5 Mg/Ipratropium 0.5 Mg)) 1 neb INH Q4H PRN PRN Reason: SOB/WHEEZING Last Admin: 10/17/19 13:43 Dose: 1 neb Apixaban (Eliquis*) 5 mg PO BID [facility] Last Admin: 10/18/19 21:12 Dose: 5 mg Atorvastatin Calcium (Lipitor*) 20 mg PO DAILY [facility] Last Admin: 10/18/19 11:44 Dose: 20 mg Benzonatate (Tessalon Cap*) 100 mg PO BID PRN PRN Reason: COUGH Buspirone HCl (Buspar Tab*) 10 mg PO TID [facility] Last Admin: 10/18/19 21:13 Dose: 10 mg Cephalexin HCl (Keflex Cap*) 500 mg PO BID [facility] Last Admin: 10/18/19 21:13 Dose: 500 mg Cholecalciferol (Vitamin D Tab*) 2,000 units PO QAM [facility] Last Admin: 10/18/19 12:35 Dose: 2,000 units Clopidogrel Bisulfate (Plavix Tab*) 75 mg PO DAILY [facility] Last Admin: 10/18/19 11:44 Dose: 75 mg Dextrose (Dextrose 50% Vial 50 Ml*) 25 ml IV PUSH .FOR FS < 60 - SS PRN PRN Reason: FS < 60 Digoxin (Lanoxin Tab*) 0.125 mg PO EVERY OTHER DAY [facility] Last Admin: 10/18/19 11:43 Dose: 0.125 mg Furosemide (Lasix Tab*) 80 mg PO 0800,1700 [facility] Gabapentin (Neurontin Cap(*)) 600 mg PO QPM [facility] Last Admin: 10/18/19 18:26 Dose: 600 mg Guaifenesin (Mucinex*) 1,200 mg PO BID [facility] Last Admin: 10/18/19 21:13 Dose: 1,200 mg Doxycycline Hyclate 100 mg/ (Sodium Chloride) 250 mls @ 250 mls/hr IVPB Q12HR [facility] Last Admin: 10/18/19 21:13 Dose: 250 mls/hr Sodium Chloride (Ns 0.9% 1000 Ml) 1,000 mls @ 75 mls/hr IV .PER RATE [facility] Insulin Glargine (Lantus(*)) 20 units SUBCUT QAM [facility] Last Admin: 10/18/19 09:44 Dose: 20 unit Insulin Human Lispro (Humalog*) 0 units SUBCUT ACHS [facility]; Protocol Last Admin: 10/18/19 21:32 Dose: 6 units Loperamide HCl (Imodium Cap*) 2 mg PO Q6H PRN PRN Reason: DIARRHEA Lorazepam (Ativan Tab(*)) 0.5 mg PO TID [facility] Last Admin: 10/18/19 21:12 Dose: 0.5 mg Magnesium Oxide (Magox 400 Tab*) 400 mg PO DAILY [facility] Last Admin: 10/18/19 11:46 Dose: 400 mg Metoprolol Succinate (Toprol Xl Tab*) 100 mg PO BID [facility] Last Admin: 10/18/19 21:13 Dose: 100 mg Miscellaneous (Ativan Pyxis [place]) 1 ea N/A .ATIVAN IV [place] PRN PRN Reason: PYXIS [place] Ondansetron HCl (Zofran Inj*) 4 mg IV Q6H PRN PRN Reason: NAUSEA Last Admin: 10/16/19 21:42 Dose: 4 mg Oxcarbazepine (Trileptal Tab(*)) 300 mg PO BID [facility] Last Admin: 10/18/19 21:13 Dose: 300 mg Pantoprazole Sodium (Protonix Tab*) 40 mg PO DAILY [facility] Last Admin: 10/18/19 11:47 Dose: 40 mg Prednisone (Deltasone Tab*) 50 mg PO DAILY [facility] Last Admin: 10/18/19 11:49 Dose: 50 mg Sertraline HCl (Zoloft*) 150 mg PO DAILY [facility] Last Admin: 10/18/19 11:42 Dose: 150 mg Simethicone (Mylicon Tab*) 80 mg PO ACHS PRN PRN Reason: INDIGESTION Tamsulosin HCl (Flomax Cap*) 0.4 mg PO DAILY [facility] Last Admin: 10/18/19 11:45 Dose: 0.4 mg Vital Signs - 8 hr 10/19/19 10/19/19 10/19/19 02:00 02:01 02:05 Temperature Pulse Rate 87 81 77 Respiratory 25 20 24 Rate Blood Pressure 87/34 107/67 (mmHg) O2 Sat by Pulse 89 89 90 Oximetry 10/19/19 10/19/19 10/19/19 03:00 03:02 03:04 Temperature Pulse Rate 86 87 82 Respiratory 18 21 27 Rate Blood Pressure 45/32 110/65 (mmHg) O2 Sat by Pulse 88 92 94 Oximetry 10/19/19 10/19/19 10/19/19 03:20 04:00 04:46 Temperature 97.2 F Pulse Rate 76 83 Respiratory 23 24 Rate Blood Pressure 114/67 (mmHg) O2 Sat by Pulse 93 93 Oximetry 10/19/19 10/19/19 10/19/19 05:00 05:53 06:00 Temperature 98.1 F Pulse Rate 85 82 Respiratory 18 25 31 Rate Blood Pressure 115/63 (mmHg) O2 Sat by Pulse 93 92 Oximetry 10/19/19 10/19/19 10/19/19 06:01 07:00 08:00 Temperature 98.1 F 98.2 F 97.9 F Pulse Rate 87 66 67 Respiratory 27 15 13 Rate Blood Pressure 98/51 118/53 117/57 (mmHg) O2 Sat by Pulse 90 94 94 Oximetry 10/19/19 10/19/19 09:00 09:01 Temperature 98.1 F 98.1 F Pulse Rate 74 77 Respiratory 12 18 Rate Blood Pressure 119/51 (mmHg) O2 Sat by Pulse 94 90 Oximetry Oxygen Devices in Use Now: BiPAP Appearance: 69 yo M in nAD, AAOx2, lethargic Eyes: No Scleral Icterus, PERRLA Ears/Nose/Mouth/Throat: NL Teeth, Lips, Gums, - - dry mucosa Neck: NL Appearance and Movements; NL JVP, Trachea Midline Respiratory: Symmetrical Chest Expansion and Respiratory Effort, - - crackles at bases Cardiovascular: - - irregular, no murmur Abdominal: NL Sounds; No Tenderness; No Distention, No Hepatosplenomegaly Lymphatic: No Cervical Adenopathy Extremities: No Clubbing, Cyanosis Skin: - - left hallux area -bottom of foot-small ulcer at 0.5 cm bottom covered with slough-no apparent infection noted. left elbow -no effusion on palpation, full ROM Neurological: NL Muscle Strength and Tone Result Diagrams: 10/19/19 05:45 10/19/19 06:55 Assess/Plan/Problems-Billing Assessment: Mr. Berrios is a 68 y.o male with a past medical hx of systolic CHF, HTN, DM type 2, afib, JOSIAH, GERD who presented to the ER with shortness of breath found to have an exacerbation of CHF. D/c'd from [facility] [place]/28/[place] on 35 days of Keflex PO for L olecranon bursitis/ possible osteo(MSSA+) - Patient Problems (1) Acute and chronic respiratory failure with hypoxia Comment: -Secondary to CHF exacerbation. -Initially required BIPAP on admission, transitioned to face mask 10/17, then BIPAP intermittently -Will continue daily weights, Strict I/O's -Lasix IV on admission -d/c'd due to increase in BUN/creat. -d/w Dr. Vann who will help with management of pt's CHF/resp failure/renal failure (2) Acute on chronic systolic heart failure Comment: - Echo done in showed no significant changes from 2017- EF 40- 45% - BUN/Creatinine - with cont elevation from baseline. As per d/w intensivinst- will stop IVF and Lasix - at baseline - O2 via NC at 3.5 liters (3) Confusion Comment: -He appears to have some degree of chronic, mild cognitive impairment, now exacerbated in the setting of hypoxia and multiple hospital admissions. Suspect toxic metabolic encephalopathy. D/w Dr. Vann-d/c benzos, cont to monitor (4) Infection of left elbow Comment: infected olecranon bursitis noted 09/28/19-appears to have resolved on exam, but today as per d/w pt still has problems with pain and recurring infection whenever tries to d/c antibiotics -cont PO keflex (5) Atrial fibrillation Comment: -Rate controlled. -Continue Apixaban, digoxin and Metoprolol. -dig level pending (6) CKD (chronic kidney disease) stage 3, GFR 30-59 ml/min Comment: - Acute renal failure on CKD stage 3 - will continue to monitor (7) COPD (chronic obstructive pulmonary disease) Comment: - Uses supplemental O2 at home 3.5 liters at baseline - mild-moderate COPD exacerbation-cont doxy started at admission, Prednisone 50 mg daily (8) Type 2 diabetes mellitus Comment: -cont Lantus and ISS -Metformin on hold (9) Anemia Comment: chronic , normocytic, Hb at baseline 10-11 (10) JOSIAH (obstructive sleep apnea) Comment: has BIPAP at night for home, but poor compliance at home -as per :she gives him lorazepam at night and when he is asleep she puts the mask on, he usually takes it off after a few hours (11) DVT prophylaxis Comment: -Apixaban. Status and Disposition: inpatient
[2019-10-19] MEDS: DOXYcycline IV* 100 MG in NS 0.9% 250 ML* 250 ML IVPB SCH ×2 (11:16→20:11)
[2019-10-19] MEDS: Metoprolol Succinate XL TAB* 100 MG PO SCH ×2 (11:19→19:56)
[2019-10-19] MEDS: Apixaban* 5 MG TAB PO SCH ×2 (11:20→19:56)
[2019-10-19] MEDS: Docusate CAP* 100 MG PO PRN (11:20)
[2019-10-19] MEDS: Clopidogrel TAB* 75 MG PO SCH (11:21)
[2019-10-19] MEDS: Cholecalciferol TAB* 1000 UNITS PO SCH (11:21)
[2019-10-19] MEDS: Pantoprazole TAB * 40 MG TAB PO SCH (11:23)
[2019-10-19] MEDS: Magnesium Oxide TAB* 400 MG PO SCH (11:23)
[2019-10-19] MEDS: guaiFENesin ER TAB 600 MG PO SCH ×3 (11:23→19:56)
[2019-10-19] MEDS: OXcarbazepine TAB(*) 300 MG PO SCH ×2 (11:24→19:56)
[2019-10-19] MEDS: Atorvastatin* 20 MG TAB PO SCH (11:24)
[2019-10-19] MEDS: Cephalexin CAP* 500 MG PO SCH ×2 (11:27→19:56)
[2019-10-19] MEDS: Insulin GLARGINE(*) 1 UNITS UNIT SUBCUT SCH (11:33)
[2019-10-19] MEDS: Sertraline* 100 MG TAB PO SCH (12:22)
[2019-10-19 14:33] LABS: Troponin I 0.05 ng/mL (<0.03)
[2019-10-19] MEDS: Tamsulosin CAP* 0.4 MG PO SCH (15:27)
[2019-10-19] MEDS: LORazepam TAB(*) 0.5 MG PO SCH (15:27)
[2019-10-19] MEDS: busPIRone TAB* 10 MG PO SCH (15:27)
[2019-10-19] MEDS: Furosemide IV* 10 MG/ML VIAL (40 MG) IV SLOW PU SCH (15:40)
[2019-10-19] MEDS: Acetaminophen TAB* 325 MG PO PRN (19:55)
[2019-10-19 20:20] LABS: Troponin I 0.04 ng/mL (<0.03)
[2019-10-19 21:06] LABS: Glucose 112 mg/dL (70-100)
[2019-10-19] MEDS ORDERED: Diazepam INJ CARPUJECT* 5 MG/ML IV ONE (23:55)
[2019-10-20] MEDS ORDERED: Furosemide TAB* 40 MG PO SCH (00:01)
[2019-10-20] MEDS ORDERED: Diazepam INJ CARPUJECT* 5 MG/ML IV ONE (01:47)
[2019-10-20 03:38] LABS: Troponin I 0.05 ng/mL (<0.03)
[2019-10-20 05:38] LABS: ABS Basophils 0.1 10^3/ul (0-0.2); ABS Lymphocytes 0.4 10^3/ul (1.0-4.8); ABS Neutrophils 11.2 10^3/ul (1.5-7.7); ABS Nucleated RBC 0.1 10^3/ul; Eosinophil % 0.1 %; Hematocrit 40 % (42-52); Hemoglobin 11.5 g/dL (14.0-18.0); Lymphocyte % 3.3 %; Mean Corpuscular HGB Conc 29 g/dL (31-36); Mean Corpuscular Hemoglobin 24 pg (27-31); Mean Corpuscular Volume 83 fL (80-94); Nucleated Red Blood Cells % 0.8; Platelet Count 202 10^3/uL (150-450); Red Blood Count 4.86 10^6 /uL (4.18-5.48); Red Cell Distribution Width 19 % (10-15); White Blood Count 12.7 10^3/uL (3.5-10.8)
[2019-10-20 05:47] LABS: BUN/Creatinine Ratio 29.8 (8-20); EGFR African American 29.4 (>60); EGFR Non-African American 24.3 (>60); Magnesium 2.2 mg/dL (1.9-2.7)
[2019-10-20 05:57] LABS: Potassium 5.6 mmol/L (3.5-5.0)
[2019-10-20] MEDS: Insulin LISPRO* 1 UNITS UNIT SUBCUT SCH ×3 (08:06→17:22)
[2019-10-20] MEDS: Sodium Polystyrene ORAL.SOL* 15 GM/60 ML BTL PO ONE ×2 (08:15→16:40)
--- NOTE | 2019-10-20 08:41 | PN ---
Subjective Date of Service: 10/20/19 Interval History: Pt is currently on BIPAP, needed to get a dose of IV Valium to be able to tolerate it last night currently lethargic, nonverbal, but following simple commands Objective Active Medications: Acetaminophen (Tylenol Tab*) 650 mg PO Q6H PRN PRN Reason: MILD PAIN or TEMP > 100.4 Last Admin: 10/19/19 19:55 Dose: 650 mg Albuterol/Ipratropium (Duoneb (Albuterol 2.5 Mg/Ipratropium 0.5 Mg)) 1 neb INH Q4H PRN PRN Reason: SOB/WHEEZING Last Admin: 10/17/19 13:43 Dose: 1 neb Apixaban (Eliquis*) 5 mg PO BID [facility] Last Admin: 10/19/19 19:56 Dose: 5 mg Atorvastatin Calcium (Lipitor*) 20 mg PO DAILY [facility] Last Admin: 10/19/19 11:24 Dose: 20 mg Benzonatate (Tessalon Cap*) 100 mg PO BID PRN PRN Reason: COUGH Cephalexin HCl (Keflex Cap*) 500 mg PO BID [facility] Last Admin: 10/19/19 19:56 Dose: 500 mg Cholecalciferol (Vitamin D Tab*) 2,000 units PO QAM [facility] Last Admin: 10/19/19 11:21 Dose: 2,000 units Clopidogrel Bisulfate (Plavix Tab*) 75 mg PO DAILY [facility] Last Admin: 10/19/19 11:21 Dose: 75 mg Dextrose (Dextrose 50% Vial 50 Ml*) 25 ml IV PUSH .FOR FS < 60 - SS PRN PRN Reason: FS < 60 Digoxin (Lanoxin Tab*) 0.125 mg PO EVERY OTHER DAY [facility] Last Admin: 10/18/19 11:43 Dose: 0.125 mg Docusate Sodium (Colace Cap*) 100 mg PO DAILY PRN PRN Reason: CONSTIPATION Last Admin: 10/19/19 11:20 Dose: 100 mg Guaifenesin (Mucinex*) 1,200 mg PO BID [facility] Last Admin: 10/19/19 19:56 Dose: 1,200 mg Doxycycline Hyclate 100 mg/ (Sodium Chloride) 250 mls @ 250 mls/hr IVPB Q12HR [facility] Last Admin: 10/19/19 20:11 Dose: 250 mls/hr Insulin Glargine (Lantus(*)) 20 units SUBCUT QAM [facility] Last Admin: 10/19/19 11:33 Dose: 20 unit Insulin Human Lispro (Humalog*) 0 units SUBCUT [facility]; Protocol Last Admin: 10/20/19 08:06 Dose: Not Given Magnesium Oxide (Magox 400 Tab*) 400 mg PO DAILY [facility] Last Admin: 10/19/19 11:23 Dose: 400 mg Metoprolol Succinate (Toprol Xl Tab*) 100 mg PO BID [facility] Last Admin: 10/19/19 19:56 Dose: 100 mg Ondansetron HCl (Zofran Inj*) 4 mg IV Q6H PRN PRN Reason: NAUSEA Last Admin: 10/16/19 21:42 Dose: 4 mg Oxcarbazepine (Trileptal Tab(*)) 300 mg PO BID [facility] Last Admin: 10/19/19 19:56 Dose: 300 mg Pantoprazole Sodium (Protonix Tab*) 40 mg PO DAILY [facility] Last Admin: 10/19/19 11:23 Dose: 40 mg Prednisone (Deltasone Tab*) 40 mg PO DAILY [facility]; Taper Stop: 10/23/19 10:59 Last Admin: 10/19/19 11:20 Dose: 40 mg Sertraline HCl (Zoloft*) 150 mg PO DAILY [facility] Last Admin: 10/19/19 12:22 Dose: Not Given Simethicone (Mylicon Tab*) 80 mg PO ACHS PRN PRN Reason: INDIGESTION Vital Signs - 8 hr 10/20/19 10/20/19 10/20/19 01:00 01:04 02:00 Temperature 98.2 F 98.2 F 98.4 F Pulse Rate 80 80 94 Respiratory 19 23 22 Rate Blood Pressure 116/87 122/73 (mmHg) O2 Sat by Pulse 92 85 99 Oximetry 10/20/19 10/20/19 10/20/19 02:01 03:00 04:00 Temperature 98.6 F 98.6 F Pulse Rate 85 92 Respiratory 24 19 22 Rate Blood Pressure 117/63 123/73 (mmHg) O2 Sat by Pulse 95 97 Oximetry 10/20/19 10/20/19 10/20/19 05:00 06:00 06:01 Temperature 98.6 F 98.4 F 98.4 F Pulse Rate 88 93 90 Respiratory 22 23 22 Rate Blood Pressure 130/61 120/105 (mmHg) O2 Sat by Pulse 96 100 94 Oximetry 10/20/19 10/20/19 07:00 08:00 Temperature 98.6 F 98.4 F Pulse Rate 100 83 Respiratory 20 18 Rate Blood Pressure 128/62 123/71 (mmHg) O2 Sat by Pulse 80 97 Oximetry Oxygen Devices in Use Now: BiPAP Appearance: 69 yo m in nAD, nonverbal, lethargic Eyes: No Scleral Icterus, PERRLA Ears/Nose/Mouth/Throat: NL Teeth, Lips, Gums, Mucous Membranes Moist Neck: NL Appearance and Movements; NL JVP, Trachea Midline Respiratory: Symmetrical Chest Expansion and Respiratory Effort, - - grossly clear lungs on ascultation Cardiovascular: - - irregular Abdominal: NL Sounds; No Tenderness; No Distention, No Hepatosplenomegaly Lymphatic: No Cervical Adenopathy Extremities: No Clubbing, Cyanosis, - - poor pedal pulses b/l Skin: - - left bottom f foot ulcer at 1 cm -unchanged Neurological: - - generalized weakness, no focal deficit Result Diagrams: 10/20/19 05:25 10/20/19 05:25 Assess/Plan/Problems-Billing Assessment: Mr. Berrios is a 68 y.o male with a past medical hx of systolic CHF, HTN, DM type 2, afib, JOSIAH, GERD who presented to the ER with shortness of breath found to have an exacerbation of CHF. D/c'd [place] [facility] on 35 days of Keflex PO for L olecranon bursitis/ possible osteo(MSSA+) - Patient Problems (1) Acute and chronic respiratory failure with hypoxia Comment: -Secondary to CHF exacerbation. -Initially required BIPAP on admission, transitioned to face mask 10/17, then BIPAP intermittently -Lasix IV on admission -d/c'd due to increase in BUN/creat stopped on . -d/w Dr. Vann who is helping with management of pt's CHF/resp failure/renal failure (2) Acute on chronic systolic heart failure Comment: - Echo done in showed no significant changes from 2017- EF 40- 45% - BUN/Creatinine - with cont elevation from baseline. As per d/w supervisor composing room - will start gentle IVF and cont to hold Lasix - at baseline - O2 via NC at 3.5 liters (3) Confusion Comment: -He appears to have some degree of chronic, mild cognitive impairment, now exacerbated in the setting of hypoxia and multiple hospital admissions. Suspect toxic metabolic encephalopathy. D/w Dr. Vann-d/c benzos, cont to monitor. Dr. Vann will order benzos if needed (4) Infection of left elbow Comment: infected olecranon bursitis noted 09/28/19-appears to have resolved on exam, but today as per d/w pt still has problems with pain and recurring infection whenever tries to d/c antibiotics -cont PO keflex (5) Atrial fibrillation Comment: -Rate controlled. -Continue Apixaban, digoxin and Metoprolol. -dig level 0.8 on 10/09/19 -pt has prolonged QT interval and the intesivist is planning to lower pt's sertraline dose (6) CKD (chronic kidney disease) stage 3, GFR 30-59 ml/min Comment: - Acute renal failure on CKD stage 3 - will continue to monitor -start gentle IVF -for hyperkalemia pt will be treated with kayexalate today (7) COPD (chronic obstructive pulmonary disease) Comment: - Uses supplemental O2 at home 3.5 liters at baseline - mild-moderate COPD exacerbation-cont doxy started at admission, Prednisone 50 mg daily (8) Type 2 diabetes mellitus Comment: -hypoglycemic this AM-treated with D50 -will stop Lantus, cont ISS -Metformin on hold (9) Anemia Comment: chronic , normocytic, Hb at baseline 10-11 (10) JOSIAH (obstructive sleep apnea) Comment: has BIPAP at night for home, but poor compliance at home -as per :she gives him lorazepam at night and when he is asleep she puts the mask on, he usually takes it off after a few hours (11) DVT prophylaxis Comment: -Apixaban. Status and Disposition: inpatient
[2019-10-20] MEDS ORDERED: NS 0.9% 1000 ML** 1,000 ML IV SCH (08:45)
--- NOTE | 2019-10-20 13:05 | ECHO ---
*[facility]* [place] [address] Fax #: [phone] Transthoracic Echocardiogram Patient: Eb Berrios : 1950 Study Date: 10/20/2019 Age: 69 Gender: M HR: 68 bpm Height: 72 in /182.9 cm BSA: 2.13 m^2 Weight: 200.6 lb /91.2 kg BMI: 27.3 kg/m^2 *Draw String Knotter: Ana Lilia Castillo RDCS RN *Referring Physician: * Sylvia Lepe *Reading Physician: Jone Bauer MD Indications: Congestive Heart Failure. History: Atrial fibrillation. Coronary artery disease with stenting. Obstructive sleep apnea. COPD. PVD. Congestive heart failure. Risk factors: Former tobacco use. Hypertension. Diabetes mellitus. Conclusions Summary: - Left ventricle: Systolic function is mildly to moderately reduced. The estimated ejection fraction is 35-40%. Akinesis of the apicalinferior myocardium. Hypokinesis of the basal-midinferior myocardium. - Left atrium: The atrium is severely dilated. - Right atrium: The atrium is moderately dilated. - Mitral valve: There is mild to moderate regurgitation with a wall jet directed toward the atrial septum. - Aortic valve: There is mild to moderate regurgitation. The peak systolic velocity is 1.38 m/sec. The mean systolic gradient is 3.0 mm Hg. The peak systolic gradient is 8.0 mm Hg. The LVOT to aortic valve VTI ratio is 0.64. The valve area by the velocity-time integral method is 2.01 cm^2. The ratio of LVOT to aortic valve peak velocity is 0.56. The valve area by the peak velocity method is 1.75 cm^2. The regurgitation pressure half-time is 407 ms. - Tricuspid valve: There is mild regurgitation. - Aortic root: The aortic root is mildly dilated. - Pericardium, extracardiac: There is a left pleural effusion. - Pulmonary arteries: Systolic pressure is moderately increased, estimated to be 46 mm Hg. - C/t 03/27/2019, left ventricle ejection fraction still overall moderately reduced. Mitral regurgitation was mild then. Study data: Transthoracic echocardiogram. Procedure: Transthoracic echocardiography was performed. Image quality was fair. The study was technically limited due to body habitus, COPD, and smoking history. Complete 2D, spectral Doppler, and color flow Doppler. Location: ICU Patient status: Inpatient. Patient room number: ICU 6. Rhythm: Atrial flutter. Findings Left ventricle: The cavity size is mildly dilated. Wall thickness is moderately increased. Systolic function is mildly to moderately reduced. The estimated ejection fraction is 35-40%. Regional wall motion abnormalities: Akinesis of the apicalinferior myocardium. Hypokinesis of the basal-midinferior myocardium. Left ventricular diastolic function parameters are indeterminate. Right ventricle: The cavity size is mildly dilated. Systolic function is low normal. Ventricular septum: The outflow septum has a sigmoid appearance. Left atrium: The atrium is severely dilated. Right atrium: The atrium is moderately dilated. Mitral valve: The leaflets are mildly thickened. There is no evidence of stenosis. There is mild to moderate regurgitation with a wall jet directed toward the atrial septum. Aortic valve: Not well visualized. The leaflets are mildly thickened and mildly calcified with mildly decreased excursion of the NCC. The findings are consistent with very mild stenosis. There is mild to moderate regurgitation. Tricuspid valve: The leaflets are normal thickness. There is mild regurgitation. Pulmonic valve: Not well visualized. Aorta: Aortic root: The aortic root is mildly dilated. Ascending aorta: The ascending aorta is not dilated. Aortic arch: The aortic arch is not visualized. Pericardium: There is no pericardial effusion. There is a left pleural effusion. Pulmonary arteries: Not well visualized. Systolic pressure is moderately increased, estimated to be 46 mm Hg. Systemic veins: Inferior vena cava: The vessel is dilated. The patient was on BiPAP during the exam, which limits the assessment of this vessel. Measurements Left ventricle Value Ref Aortic valve Value Ref BRENDON, LAX (H) 6.4 cm 4.2 - 5.8 Delia diam, ED 2.0 cm ----- ESD, LAX (H) 5.4 cm 2.5 - 4.0 Delia diam/bsa, ED 0.9 cm/m^2 ----- FS, LAX (L) 17 % 25 - 43 Peak v, S 1.38 m/sec ----- PW, ED (H) 1.3 cm 0.6 - 1.0 VTI, S 23.1 cm ----- IVS/PW, ED 1.05 Mean grad, S 3.0 mm Hg ----- E', lat delia, TDI (L) 6.6 cm/sec >=10.0 Peak grad, S 8.0 mm Hg -- --- E/e', lat delia, 19 LVOT/AV, VTI ratio 0.64 ----- TDI CHAVA, VTI 2.01 cm^2 ----- CHAVA, Vmax 1.75 cm^2 ----- LVOT Value Ref AR peak v 3.41 m/sec ----- Diam, S 2.00 cm AR PHT 407 ms ----- Area 3.1 cm^2 AR peak grad 47 mm Hg ----- Peak salvador, S 0.77 m/sec VTI, S 14.8 cm Mitral valve Value Ref Mean grad, S 1 mm Hg Peak E 1.28 m/sec ----- SV 46 ml Decel time 139 ms ----- SV/bsa 22 ml/m^2 Peak grad, D 6.6 mm Hg ----- Ventricular septum Value Ref Tricuspid valve Value Ref IVS, ED (H) 1.4 cm 0.6 - 1.0 TR peak v (H) 3.1 m/sec <=2.8 Peak RV-RA grad, S 38 mm Hg ----- Right ventricle Value Ref BRENDON, LAX 3.6 cm Aortic root Value Ref BRENDON minor ax, A4C (H) 4.1 cm 1.9 - 3.5 Root diam 4.0 cm <4.2 mid Pressure, S 46 mm Hg Ascending aorta Value Ref AAo AP diam, S 3.4 cm ----- Left atrium Value Ref AP dim, ES (H) 5.80 cm 3.00 - Pulmonary artery Value Ref 4.00 Pressure, S 46.0 mm Hg ----- ML dim, A4C 7.0 cm SI dim, A4C 7.0 cm Inferior vena cava Value Ref Vol/bsa, ES, 1-p (H) 80 ml/m^2 12 - 37 Diam 2.5 cm ----- A4C Vol/bsa, ES, A/L (H) 86 ml/m^2 16 - 34 Right atrium Value Ref ML dim, ES, A4C (H) 4.8 cm 2.6 - 4.4 SI dim, ES, A4C (H) 6.5 cm 3.4 - 5.3 Estimated RAP 8 mm Hg Legend: (L) and (H) jaret values outside specified reference range. Prepared and electronically signed by Jone Black MD 10/20/2019 13:04
[2019-10-20] MEDS: DOXYcycline IV* 100 MG in NS 0.9% 250 ML* 250 ML IVPB SCH ×2 (13:58→20:58)
[2019-10-20] MEDS ORDERED: Furosemide IV* 10 MG/ML 10 ML VIAL (100 MG) IV SCH (14:00)
[2019-10-20] MEDS: Digoxin TAB* 0.125 MG PO SCH (15:29)
[2019-10-20] MEDS: Apixaban* 5 MG TAB PO SCH ×2 (15:34→20:17)
[2019-10-20] MEDS: Metoprolol Succinate XL TAB* 100 MG PO SCH (15:34)
[2019-10-20] MEDS: Clopidogrel TAB* 75 MG PO SCH (15:35)
[2019-10-20] MEDS: Pantoprazole TAB * 40 MG TAB PO SCH (15:37)
[2019-10-20] MEDS: Cholecalciferol TAB* 1000 UNITS PO SCH (15:37)
[2019-10-20] MEDS: Cephalexin CAP* 500 MG PO SCH ×2 (15:38→20:16)
[2019-10-20] MEDS: Atorvastatin* 20 MG TAB PO SCH (15:38)
[2019-10-20] MEDS: OXcarbazepine TAB(*) 300 MG PO SCH ×2 (15:39→20:16)
[2019-10-20] MEDS: Magnesium Oxide TAB* 400 MG PO SCH (15:39)
[2019-10-20] MEDS: guaiFENesin ER TAB 600 MG PO SCH (15:52)
[2019-10-20] MEDS: Sertraline* 100 MG TAB PO SCH (15:53)
--- NOTE | 2019-10-20 16:33 | PN ---
Progress Note - Progress Note Date of Service: 10/20/19 Note: patient was seen and examined and case was discussed with the hospitalist. There was concern about his volume status. His cxr shows signs of volume overload. Lung ultrasound showed b lines b/l c/w with fluid overload. A repeat echo was also done and cardiology was consulted to assess volume status. externally patient seems volume down but internally the exam is consistent with being volume up. It was decided to diurese the patient with lasix at this time. Spoke with cardiology and they will come and evaluate the patient on 10/21/2019. of note his discharge weight in early September was 208 lbs. and his last weight today was 201 lbs. I believe this to be due to loss of muscles mass and not necessarily volume. His creatinine has been rising however considering he needs either high flow / bipap diuresing him is the safest option at this time although there has been much discussion as to if this is due to renal vein congestion vs due to an internal dehydrated state. I spoke to his about goals of care but she has left the decision upto the patient himself. The [facility] is also involved regarding goals of care. In addition to all of this there was a brief discussion with his because his primary cardiology wanted to transfer him to a hospital in [place]. However again the patient's left the decision with the patient and he wanted "more time to think"
[2019-10-20 16:58] LABS: Albumin 3.6 g/dL (3.2-5.2); Albumin/Globulin Ratio 1.7 (1-3); BUN/Creatinine Ratio 33.6 (8-20); Calcium 8.7 mg/dL (8.6-10.3); EGFR African American 30.2 (>60); Globulin 2.1 g/dL (2-4); Total Bilirubin 1.1 mg/dL (0.2-1.0); Total Protein 5.7 g/dL (6.4-8.9)
[2019-10-20 17:09] LABS: Potassium 5.1 mmol/L (3.5-5.0)
[2019-10-20] MEDS ORDERED: Furosemide IV* 10 MG/ML 10 ML VIAL (100 MG) IV ONE (20:00)
[2019-10-20] MEDS: Metoprolol Tartrate TAB* 100 MG TAB PO SCH (20:17)
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
[2019-10-20] MEDS ORDERED: Insulin LISPRO* 1 UNITS UNIT SUBCUT SCH (22:00)
[2019-10-21] MEDS: Insulin LISPRO* 1 UNITS UNIT SUBCUT SCH ×7 (00:24→23:50)
[2019-10-21 04:55] LABS: ABS Basophils 0.1 10^3/ul (0-0.2); ABS Lymphocytes 0.3 10^3/ul (1.0-4.8); ABS Monocytes 0.9 10^3/ul (0-0.8); ABS Neutrophils 9.9 10^3/ul (1.5-7.7); ABS Nucleated RBC 0.2 10^3/ul; Eosinophil % 0.2 %; Hematocrit 42 % (42-52); Hemoglobin 12.9 g/dL (14.0-18.0); Lymphocyte % 2.9 %; Mean Corpuscular HGB Conc 31 g/dL (31-36); Mean Corpuscular Hemoglobin 25 pg (27-31); Mean Corpuscular Volume 82 fL (80-94); Mean Platelet Volume 9.6 fL (7.4-10.4); Nucleated Red Blood Cells % 1.5; Platelet Count 223 10^3/uL (150-450); Red Blood Count 5.09 10^6 /uL (4.18-5.48); Red Cell Distribution Width 20 % (10-15); White Blood Count 11.3 10^3/uL (3.5-10.8)
[2019-10-21 05:19] LABS: Albumin 3.8 g/dL (3.2-5.2); Albumin/Globulin Ratio 1.7 (1-3); BUN/Creatinine Ratio 34.3 (8-20); Calcium 8.9 mg/dL (8.6-10.3); EGFR African American 28.7 (>60); EGFR Non-African American 23.7 (>60); Globulin 2.3 g/dL (2-4); Magnesium 2.2 mg/dL (1.9-2.7); Total Bilirubin 1.2 mg/dL (0.2-1.0); Total Protein 6.1 g/dL (6.4-8.9)
[2019-10-21 05:21] LABS: Potassium 5.3 mmol/L (3.5-5.0)
--- NOTE | 2019-10-21 09:31 | PN ---
Subjective Date of Service: 10/21/19 Interval History: Seen with at bedside On Vapotherm, decreasing flow requirements Has pain in back that was relayed to me by Pt has been in many different hospitals over the last year including a hospital stay May-June (22 days) including intubation Many stays for CHF at [facility] stays some up to lengths of 10 days Objective Active Medications: Acetaminophen (Tylenol Tab*) 650 mg PO Q6H PRN PRN Reason: MILD PAIN or TEMP > 100.4 Last Admin: 10/19/19 19:55 Dose: 650 mg Albuterol/Ipratropium (Duoneb (Albuterol 2.5 Mg/Ipratropium 0.5 Mg)) 1 neb INH Q4H PRN PRN Reason: SOB/WHEEZING Last Admin: 10/17/19 13:43 Dose: 1 neb Apixaban (Eliquis*) 5 mg PO BID [facility] Last Admin: 10/20/19 20:17 Dose: 5 mg Atorvastatin Calcium (Lipitor*) 20 mg PO DAILY [facility] Last Admin: 10/20/19 15:38 Dose: 20 mg Cephalexin HCl (Keflex Cap*) 500 mg PO BID [facility] Last Admin: 10/20/19 20:16 Dose: 500 mg Cholecalciferol (Vitamin D Tab*) 2,000 units PO QAM [facility] Last Admin: 10/20/19 15:37 Dose: 2,000 units Clopidogrel Bisulfate (Plavix Tab*) 75 mg PO DAILY [facility] Last Admin: 10/20/19 15:35 Dose: 75 mg Dextrose (Dextrose 50% Vial 50 Ml*) 25 ml IV PUSH .FOR FS < 60 - SS PRN PRN Reason: FS < 60 Last Admin: 10/20/19 08:48 Dose: 25 ml Digoxin (Lanoxin Tab*) 0.125 mg PO EVERY OTHER DAY [facility] Last Admin: 10/20/19 15:29 Dose: 0.125 mg Docusate Sodium (Colace Cap*) 100 mg PO DAILY PRN PRN Reason: CONSTIPATION Last Admin: 10/19/19 11:20 Dose: 100 mg Doxycycline Hyclate 100 mg/ (Sodium Chloride) 250 mls @ 250 mls/hr IVPB Q12HR [facility] Last Admin: 10/20/19 20:58 Dose: 250 mls/hr Insulin Human Lispro (Humalog*) 0 units SUBCUT Q4H STELLA; Protocol Last Admin: 10/21/19 08:56 Dose: Not Given Magnesium Oxide (Magox 400 Tab*) 400 mg PO DAILY [facility] Last Admin: 10/20/19 15:39 Dose: 400 mg Metoprolol Tartrate (Lopressor Tab*) 100 mg PO BID [facility] Last Admin: 10/20/19 20:17 Dose: 100 mg Ondansetron HCl (Zofran Inj*) 4 mg IV Q6H PRN PRN Reason: NAUSEA Last Admin: 10/16/19 21:42 Dose: 4 mg Oxcarbazepine (Trileptal Tab(*)) 300 mg PO BID [facility] Last Admin: 10/20/19 20:16 Dose: 300 mg Pantoprazole Sodium (Protonix Tab*) 40 mg PO DAILY [facility] Last Admin: 10/20/19 15:37 Dose: 40 mg Prednisone (Deltasone 10 Mg Tab) 30 mg PO DAILY [facility]; Taper Stop: 10/23/19 10:59 Last Admin: 10/20/19 15:48 Dose: 30 mg Simethicone (Mylicon Tab*) 80 mg PO ACHS PRN PRN Reason: INDIGESTION Vital Signs - 8 hr 10/21/19 10/21/19 10/21/19 02:00 03:00 04:00 Temperature 97.9 F 98.4 F 98.6 F Pulse Rate 85 89 Respiratory 33 30 19 Rate Blood Pressure 129/63 99/72 (mmHg) O2 Sat by Pulse 92 90 Oximetry 10/21/19 10/21/19 10/21/19 04:01 05:00 06:00 Temperature 98.8 F 98.6 F 96.6 F Pulse Rate 82 81 82 Respiratory 21 16 23 Rate Blood Pressure 124/63 (mmHg) O2 Sat by Pulse 95 95 85 Oximetry 10/21/19 10/21/19 10/21/19 06:01 07:00 07:02 Temperature 97.5 F 98.6 F 98.6 F Pulse Rate 85 84 Respiratory 23 24 24 Rate Blood Pressure 138/65 136/70 (mmHg) O2 Sat by Pulse 92 89 Oximetry 10/21/19 10/21/19 10/21/19 07:47 08:00 08:01 Temperature 98.6 F 98.4 F Pulse Rate 87 89 83 Respiratory 22 37 13 Rate Blood Pressure 134/62 (mmHg) O2 Sat by Pulse 94 94 93 Oximetry Oxygen Devices in Use Now: High Flow Heated Nasal Cannula Appearance: lying 40 deg, eyes closed, trying to drink from a cup not in his hand, breathing comfortably Eyes: No Scleral Icterus Ears/Nose/Mouth/Throat: NL Teeth, Lips, Gums, Clear Oropharnyx Neck: NL Appearance and Movements; NL JVP, Trachea Midline Respiratory: Symmetrical Chest Expansion and Respiratory Effort, - - does not participate in deep breathing, I do not appreciate rales Cardiovascular: - - irir Abdominal: NL Sounds; No Tenderness; No Distention, No Hepatosplenomegaly Lymphatic: No Cervical Adenopathy Extremities: No Edema Skin: - - 1 cm ulcer left plantar surface of foot covered, no surrounding erythema Neurological: - - AOx 1 to self, moves all extremities, face symmetric Result Diagrams: 10/21/19 04:27 10/21/19 04:27 Assess/Plan/Problems-Billing Assessment: Mr. Berrios is a 68 y.o male with a past medical hx of COPD on 3.5L home O2, systolic CHF, afib, JOSIAH, who presented to the ER with 1 day shortness of breath found with respiratory failure with stay complicated by KEKE [place] [facility] [place] 35 days of Keflex PO for L olecranon bursitis/ possible osteo(MSSA+) - Patient Problems (1) Prolonged QT interval Comment: qtc prolonging meds held repeat EKG now (2) Acute kidney failure Comment: Acute on chronic Suspect intravascular volume depletion in setting of illness and diuresis Will aim for net even today Hold diuresis (3) Hyperkalemia Comment: patiromer and repeat K in AM (4) Acute and chronic respiratory failure with hypoxia Comment: -Secondary to acute systolic CHF exacerbation on presentation - Has significant underlying lung dz at baseline which requires 3.5 L home oxygen and BiPAP at night. Pulm [place] is Dr. Lyn - Currently improving after diuresis. Weight down since admission. - Worsneing KEKE and will hold lasix today unless needed urgently (5) Atrial fibrillation Comment: -Rate controlled. -Continue Apixaban, digoxin and Metoprolol. (6) Confusion Comment: -He has baseline mild cognitive impairment or dementia, now exacerbated in the setting of hypoxia and multiple hospital admissions. Suspect toxic metabolic encephalopathy. - At baseline may forget where he is at home or inquire into relatives that have been decades - Baseline fxn including minimally ambulatory with walker/cane and using a wheelchair -d/c benzos, cont to monitor. (7) Infection of left elbow Current Visit: No Status: Acute Code(s): M00.9 - PYOGENIC ARTHRITIS, UNSPECIFIED SNOMED Code(s): 120084404 Comment: infected olecranon bursitis noted 09/28/19-appears to have resolved on exam, but today as per d/w pt still has problems with pain and recurring infection whenever tries to d/c antibiotics -cont PO keflex (8) JOSIAH (obstructive sleep apnea) Comment: has BIPAP at night for home, but poor compliance at home -as per :she gives him lorazepam at night and when he is asleep she puts the mask on, he usually takes it off after a few hours (9) DVT prophylaxis Comment: -Apixaban. Status and Disposition: inpatient
[2019-10-21] MEDS ORDERED: Patiromer POWDER* 8.4 GM PAK PO ONE (09:32)
[2019-10-21] MEDS: DOXYcycline IV* 100 MG in NS 0.9% 250 ML* 250 ML IVPB SCH ×2 (09:52→21:12)
[2019-10-21] MEDS: Apixaban* 5 MG TAB PO SCH ×3 (10:35→23:50)
[2019-10-21] MEDS: Cholecalciferol TAB* 1000 UNITS PO SCH (10:35)
[2019-10-21] MEDS: Cephalexin CAP* 500 MG PO SCH ×2 (10:36→23:50)
[2019-10-21] MEDS: Magnesium Oxide TAB* 400 MG PO SCH (10:36)
[2019-10-21] MEDS: OXcarbazepine TAB(*) 300 MG PO SCH ×3 (10:36→23:50)
[2019-10-21] MEDS: Clopidogrel TAB* 75 MG PO SCH (10:36)
[2019-10-21] MEDS: Metoprolol Tartrate TAB* 100 MG TAB PO SCH ×3 (10:37→23:50)
[2019-10-21] MEDS: Pantoprazole TAB * 40 MG TAB PO SCH (10:37)
[2019-10-21] MEDS: Atorvastatin* 20 MG TAB PO SCH (10:37)
[2019-10-21] MEDS: Ondansetron INJ* 2 MG/ML VIAL IV PRN (13:15)
[2019-10-21 13:28] LABS: Troponin I 0.07 ng/mL (<0.03)
[2019-10-21 16:26] LABS: Troponin I 0.07 ng/mL (<0.03)
--- NOTE | 2019-10-21 17:12 | PN ---
Date of Service: 10/21/19 - 6 Critical Care Services: 69 yo M with CAD, Afib, PTSD, COPD and CHF presents to the ED on 10/16 with respiratory distress. Per patient he had 2 days of shortness of breath, worsening. Minimal relief from inhaler. [facility]19 for CHF exacerbation. 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 On evaluation in the ED his vital signs were stable. Pulse ox 92%. Physical exam notable for mild distress. HR irregularly irregular. mild bilateral wheezing with increased work of breathing and bibasilar crackles noted. WBC 6.9. Cr 1.56. CXR consistent with CHF. EKG with atrial fibrillation, rate 80. unchanged from EKG done 09/22/2019. While in ED, pt had worsening dyspnea and sats dipped to 80s on 3L of O2 (home rate 3.5-4L). Duonebs started, O2 increased and admitted. 10/17: Agitated and refusing BiPAP at night. Per family patient has PTSD and has difficulty tolerating BiPAP at home - they usually have him take his ativan and then once he is sleeping applies BiPAP. Requiring 10L via mask. Lasix for diuresis, dose decreased given rise in creatinine. 10/18: Remains lethargic. ABG with respiratory acidosis; started on BiPAP with subsequent improvement in mental status. 10/19: lethargic again in AM. tolerated biPAP intermittently overnight. Lasix discontinued given rise in BUN & creatinine. 10/20: Lethargic, nonverbal but following commands. Given Valium overnight to allow for pt to tolerate BiPAP. ICU consulted. Noted to have prolonged QTC and psycotropic medications discontinued. Tried on highflow to see if he would be less anxious. Lasix x 1. TTE done with slight worsening of EF as compared to prior. Cardiology consulted. 10/21: Unchanged. on vapotherm. Creatinine continues to rise. Anxious throughout day. restarted on home Ativan as this should not affect QTc and Gabapentin to prevent withdrawal (also should not affect QTc). Vital Signs: Temp Pulse Resp BP SpO2 FiO2 98.6 F 80 27 137/79 96 80 10/21/19 16:00 10/21/19 16:00 10/21/19 16:00 10/21/19 16:00 10/21/19 16:00 10/21 12:00 Physical Exam: Gen: restless HEENT: NC in place Lungs: decreased bilaterally. no wheezes Cardiac: irregularly irregular Abdomen: soft nontender Extremities: warm, dry Neuro: confused, lethargic Fluid Balance (Past 24 Hours): I= O= Net Intake & Output 10/19/19 10/20/19 10/21/19 10/22/19 06:59 06:59 06:59 06:59 Intake Total 3274 1214 995 655 Output Total 375 1045 2010 465 Balance 2899 169 -1015 190 Weight 205 lb 7.533 oz 201 lb 12.814 oz 204 lb 9 oz Intake: IV Fluids 1269 203 30 ABX - DOXYCYCLINE 119 30 NS 1150 173 30 IVPB 555 546 525 265 ABX - DOXYCYCLINE 555 546 525 265 Oral 1450 465 470 360 Output: Urine 144 670 7233 Gaviria 200 575 960 465 Other: Estimated Void Large # Bowel Movements 1 Estimated Stool Amount Small # Voids 1 Labs: Laboratory Results - last 24 hr 10/20/19 10/20/19 10/20/19 16:30 17:50 20:49 WBC RBC Hgb Hct MCV MCH MCHC RDW Plt Count MPV Neut % (Auto) Lymph % (Auto) Living[place] % (Auto) Eos % (Auto) Baso % (Auto) Absolute Neuts (auto) Absolute Lymphs (auto) Absolute Monos (auto) Absolute Eos (auto) Absolute Basos (auto) Absolute Nucleated RBC Nucleated RBC % Patient Temperature Not Reportable ABG pH 7.36 ABG pH (Temp Correct) Not Reportable ABG pCO2 38 ABG pCO2 (Temp Corrct Not Reportable ABG pO2 78 L ABG pO2 (Temp Correct Not Reportable ABG HCO3 22.0 ABG O2 Saturation 96.9 ABG Base Excess -3.6 L Respiration Rate Not Reportable O2 Delivery Device vapo 30lpm Ventilator Type Not Reportable Vent Mode Not Reportable FiO2 80 Inspiratory Time Not Reportable PEEP Not Reportable Pressure Support Not Reportable Pressure Control Not Reportable EPAP Not Reportable IPAP Not Reportable BiPAP Not Reportable Sodium 138 Potassium 5.1 H Chloride 104 Carbon Dioxide 24 Anion Gap 10 BUN 86 H Creatinine 2.56 H Est GFR ( Amer) 30.2 Est GFR (Non-Af Amer) 25.0 BUN/Creatinine Ratio 33.6 H Glucose 185 H POC Glucose (mg/dL) 209 H Calcium 8.7 Magnesium Total Bilirubin 1.10 H AST 461 H ALT 384 H Alkaline Phosphatase 120 H Troponin I B-Natriuretic Peptide Total Protein 5.7 L Albumin 3.6 Globulin 2.1 Albumin/Globulin Ratio 1.7 10/20/19 10/20/19 10/21/19 23:43 23:55 03:59 WBC RBC Hgb Hct MCV MCH MCHC RDW Plt Count MPV Neut % (Auto) Lymph % (Auto) Livingston % (Auto) Eos % (Auto) Baso % (Auto) Absolute Neuts (auto) Absolute Lymphs (auto) Absolute Monos (auto) Absolute Eos (auto) Absolute Basos (auto) Absolute Nucleated RBC Nucleated RBC % Patient Temperature Not Reportable ABG pH 7.34 L ABG pH (Temp Correct) Not Reportable ABG pCO2 44 ABG pCO2 (Temp Corrct Not Reportable ABG pO2 79 L ABG pO2 (Temp Correct Not Reportable ABG HCO3 23.1 ABG O2 Saturation 96.2 ABG Base Excess -2.2 L Respiration Rate Not Reportable O2 Delivery Device vapotherm Ventilator Type Not Reportable Vent Mode Not Reportable FiO2 80 Inspiratory Time Not Reportable PEEP Not Reportable Pressure Support Not Reportable Pressure Control Not Reportable EPAP Not Reportable IPAP Not Reportable BiPAP Not Reportable Sodium Potassium Chloride Carbon Dioxide Anion Gap BUN Creatinine Est GFR ( Amer) Est GFR (Non-Af Amer) BUN/Creatinine Ratio Glucose POC Glucose (mg/dL) 178 H 140 H Calcium Magnesium Total Bilirubin AST ALT Alkaline Phosphatase Troponin I B-Natriuretic Peptide Total Protein Albumin Globulin Albumin/Globulin Ratio 10/21/19 10/21/19 10/21/19 04:27 04:27 04:27 WBC 11.3 H RBC 5.09 Hgb 12.9 L Hct 42 MCV 82 MCH 25 L MCHC 31 RDW 20 H Plt Count 223 MPV 9.6 Neut % (Auto) 88.1 Lymph % (Auto) 2.9 Livingston % (Auto) 8.0 Eos % (Auto) 0.2 Baso % (Auto) 0.8 Absolute Neuts (auto) 9.9 H Absolute Lymphs (auto) 0.3 L Absolute Monos (auto) 0.9 H Absolute Eos (auto) 0.0 Absolute Basos (auto) 0.1 Absolute Nucleated RBC 0.2 Nucleated RBC % 1.5 Patient Temperature ABG pH ABG pH (Temp Correct) ABG pCO2 ABG pCO2 (Temp Corrct ABG pO2 ABG pO2 (Temp Correct ABG HCO3 ABG O2 Saturation ABG Base Excess Respiration Rate O2 Delivery Device Ventilator Type Vent Mode FiO2 Inspiratory Time PEEP Pressure Support Pressure Control EPAP IPAP BiPAP Sodium 139 Potassium 5.3 H Chloride 105 Carbon Dioxide 21 L Anion Gap 13 H BUN 92 H Creatinine 2.68 H Est GFR ( Amer) 28.7 Est GFR (Non-Af Amer) 23.7 BUN/Creatinine Ratio 34.3 H Glucose 137 H POC Glucose (mg/dL) Calcium 8.9 Magnesium 2.2 Total Bilirubin 1.20 H AST 311 H ALT 378 H Alkaline Phosphatase 137 H Troponin I B-Natriuretic Peptide > 1300 H Total Protein 6.1 L Albumin 3.8 Globulin 2.3 Albumin/Globulin Ratio 1.7 10/21/19 10/21/19 10/21/19 08:18 12:16 12:45 WBC RBC Hgb Hct MCV MCH MCHC RDW Plt Count MPV Neut % (Auto) Lymph % (Auto) Livingston % (Auto) Eos % (Auto) Baso % (Auto) Absolute Neuts (auto) Absolute Lymphs (auto) Absolute Monos (auto) Absolute Eos (auto) Absolute Basos (auto) Absolute Nucleated RBC Nucleated RBC % Patient Temperature ABG pH ABG pH (Temp Correct) ABG pCO2 ABG pCO2 (Temp Corrct ABG pO2 ABG pO2 (Temp Correct ABG HCO3 ABG O2 Saturation ABG Base Excess Respiration Rate O2 Delivery Device Ventilator Type Vent Mode FiO2 Inspiratory Time PEEP Pressure Support Pressure Control EPAP IPAP BiPAP Sodium Potassium Chloride Carbon Dioxide Anion Gap BUN Creatinine Est GFR ( Amer) Est GFR (Non-Af Amer) BUN/Creatinine Ratio Glucose POC Glucose (mg/dL) 107 H 198 H Calcium Magnesium Total Bilirubin AST ALT Alkaline Phosphatase Troponin I 0.07 H* B-Natriuretic Peptide Total Protein Albumin Globulin Albumin/Globulin Ratio 10/21/19 10/21/19 15:50 15:50 WBC RBC Hgb Hct MCV MCH MCHC RDW Plt Count MPV Neut % (Auto) Lymph % (Auto) Livingston % (Auto) Eos % (Auto) Baso % (Auto) Absolute Neuts (auto) Absolute Lymphs (auto) Absolute Monos (auto) Absolute Eos (auto) Absolute Basos (auto) Absolute Nucleated RBC Nucleated RBC % Patient Temperature ABG pH ABG pH (Temp Correct) ABG pCO2 ABG pCO2 (Temp Corrct ABG pO2 ABG pO2 (Temp Correct ABG HCO3 ABG O2 Saturation ABG Base Excess Respiration Rate O2 Delivery Device Ventilator Type Vent Mode FiO2 Inspiratory Time PEEP Pressure Support Pressure Control EPAP IPAP BiPAP Sodium Potassium Chloride Carbon Dioxide Anion Gap BUN Creatinine Est GFR ( Amer) Est GFR (Non-Af Amer) BUN/Creatinine Ratio Glucose POC Glucose (mg/dL) 163 H Calcium Magnesium Total Bilirubin AST ALT Alkaline Phosphatase Troponin I 0.07 H* B-Natriuretic Peptide Total Protein Albumin Globulin Albumin/Globulin Ratio Studies: 10/20 CXR - consistent with CHF 10/20 TTE LVEF 35-40% akinesis of apicalinferior myocardium, hypokinesis fo basal midinferior myocardium. severe dilation of left atrium, moderate dilation of right atrium. mild to moderate regurgitation of mitral valve mild to moderate regurgitation of aortic valve moderate pulmonary artery hypertension 10/19 CXR - right upper lobe airspace disease, interstitial edema Nutrition: heart healthy diet Impression: 69 yo M with CHF and COPD admitted on 10/16 with respiratory distress after recent hospitalization at OR for CHF exacerbation. Found to have pulmonary edema. Efforts at diuresis limited by rising creatinine secondary to cardiorenal syndrome. Plan: Hospital Diagnoses: #1: Acute on chronic systolic CHF #2: Acute hypoxic respiratory failure #3: Pulmonary edema, cardiac cause #4: Cardiorenal syndrome Cardiovascular: (1) Acute on chronic systolic CHF; (2) Afib with RVR; (3) prolonged QTc; (4) Essential HTN: (5) PVD; (6) CAD with angina and prior [place]; (7 ) hx of hypertrophic cardiomyopathy with cardiomegaly; (8) hx of carotid stenosis; (9) Hyperlipidemia; (10) elevated troponin; (11) hx of aneurysm; (12) chronic Essential HTN -- HR 67-93 -- SBP 99-161 -- Telemetry -- TTE, 10/20: LVEF 35-40% akinesis of apicalinferior myocardium, hypokinesis fo basal midinferior myocardium. severe dilation of left atrium, moderate dilation of right atrium. mild to moderate regurgitation of mitral valve mild to moderate regurgitation of aortic valve moderate pulmonary artery hypertension -- Cardiac markers Trop 0.07 from 0.07 from 0.05, follow trend BNP 1300, follow trend -- eliquis -- Atorvastatin -- Digoxin, Metoprolol -- Lasix on hold secondary to rising creatinine -- Cardiology following Home meds: Lasix, Atorvastatin, plavix, amlodipine, digoxin, metoprolol, eliquis Pulmonary: (1) Acute on chronic hypoxic respiratory failure; (2) Pulmonary edema, cardiac cause; (3) Obstructive sleep apnea; (4) COPD; (5) chronic asthma ; (6) hx of seasonal allergies -- RR 14-33 -- sats 85-100 on vapotherm and 15L psalter, wean as able -- CXR, 10/20: findings consistent with CHF, slightly improved -- PRN Duonebs -- resume home Tiotropium bromide/olodaterol -- diuresis (for pulmonary edema) on hold secondary to rising creatinine -- pulmonary toilet Home meds: albuterol, tiotropium bromide/olodaterol, mometasone, home O2 3.5 to 4L NC Gastrointestinal: (1) elevated LFTs secondary to pulmonary congestion; (2) hx of irritable bowel syndrome; (3) GERD -- LFTs, follow trend Tbili 1.20 from 1.10 ALK 137 from 120 AST 311 ALT 378 from 384 -- diet: heart healthy -- bowel regimen: docusate, Magox -- ulcer prophylaxis: Protonix -- PRN zofran -- PRN Simethicone Home meds: Magox, simethicone, protonix, immodium Endocrine: (1) Diabetes mellitus type 2 -- monitor BGs -- SSI -- Prednisone Home meds: Metformin, Lantus Renal: (1) Acute on chronic stage 3 renal failure; (2) Cardiorenal syndrome; (3 ) Hyperkalemia; (4) BPH -- UOP: 80 ml/hr -- Cr 2.68 from 2.56 -- Lytes Na 139 from 138 K 5.3 from 5.1, follow trend, received Patiromer Ca 8.9 Mag 2.2 Phos ordered with AM labs -- consult Nephrology if no improvement in renal function Home meds: Lasix, potassium chloride, flomax Infectious disease: No acute issues -- Tmax 99.0 -- WBC 11.3 from 12.7 -- Micro 10/19 UA negative Flu A&B negative -- ABX Keflex Doxycycline Home meds: Keflex Neurologic: (1) Acute encephalopathy; (2) Chronic pain; (3) Anxiety and depression; (4) hx of PTSD; (5) hx of CVA and TIA; (6) peripheral neuropathy; (7 ) hx of substance abuse -- PRN Tylenol -- PRN Ativan for anxiety -- Trileptal -- resume home gabapentin so as to prevent withdrawal and faciliate tolerance of BiPAP Home meds: gabapentin, buspirone, zoloft, ativan, norco, trileptal Hematological: (1) chronic anemia -- Hgb 12.9 from 11.5 -- Plt 223 from 202 -- DVT prophylaxis: on eliquis -- cholecalciferol Home meds: plavix, cholecalciferol, eliquis Metabolic: No acute issues Home meds: None Other: No acute issues Home meds: None Deep vein thrombosis prophylaxis: on eliquis Dietary: Protonix Condition: critical Prognosis: guarded Code status: full Disposition:continue ICU Care Family updated at bedside regarding interval events and plan of care Cumulative time spent in the care of this patient (excluding any procedure time) : at least 55 minutes. Patient care included clinical interview (with patient and/or family), bedside exam of the patient, review of labs, x-rays, and other ancillary data, coordination of (respiratory, nursing care, review of patient's records, discussion regarding patients management with involved consultants, primary physician, pharmacists, and other healthcare personnel (dietary, case management , physical/occupational therapy etc.) Critical Care Time: 55 min
[2019-10-21] MEDS: LORazepam TAB(*) 0.5 MG PO PRN (17:22)
[2019-10-21] MEDS: fentaNYL* 50 MCG/ML 2 ML VIAL (100 MCG VIAL) IV SLOW PU PRN (20:36)
[2019-10-21] MEDS: Gabapentin CAP(*) 300 MG PO SCH ×2 (21:17→23:50)
[2019-10-22] MEDS ORDERED: LORazepam INJ* 2 MG/ML 1 ML VIAL IV PUSH ONE (00:45)
[2019-10-22] MEDS ORDERED: LORazepam INJ* 2 MG/ML 1 ML VIAL ONE (00:55)
[2019-10-22] MEDS ORDERED: Lorazepam PYXIS KEY ONE (00:55)
[2019-10-22 04:23] LABS: ABS Lymphocytes 0.3 10^3/ul (1.0-4.8); ABS Monocytes 0.7 10^3/ul (0-0.8); ABS Neutrophils 6.9 10^3/ul (1.5-7.7); ABS Nucleated RBC 0.1 10^3/ul; Eosinophil % 0.4 %; Hematocrit 40 % (42-52); Hemoglobin 12.2 g/dL (14.0-18.0); Lymphocyte % 3.9 %; Mean Corpuscular HGB Conc 30 g/dL (31-36); Mean Corpuscular Hemoglobin 25 pg (27-31); Mean Corpuscular Volume 84 fL (80-94); Mean Platelet Volume 9.1 fL (7.4-10.4); Nucleated Red Blood Cells % 0.8; Platelet Count 173 10^3/uL (150-450); Red Blood Count 4.81 10^6 /uL (4.18-5.48); Red Cell Distribution Width 20 % (10-15)
[2019-10-22 05:03] LABS: Troponin I 0.05 ng/mL (<0.03)
[2019-10-22 05:24] LABS: Albumin 3.1 g/dL (3.2-5.2); Albumin/Globulin Ratio 1.6 (1-3); BUN/Creatinine Ratio 36.4 (8-20); Calcium 8.4 mg/dL (8.6-10.3); EGFR African American 29.5 (>60); EGFR Non-African American 24.4 (>60); Globulin 1.9 g/dL (2-4); Magnesium 2.2 mg/dL (1.9-2.7); Phosphorus 5.8 mg/dL (2.5-5.0); Potassium 4.9 mmol/L (3.5-5.0)
[2019-10-22] MEDS: Insulin LISPRO* 1 UNITS UNIT SUBCUT SCH ×6 (05:46→23:28)
[2019-10-22] MEDS: Tiotropium Brom/Olodaterol MDI INH SCH (08:52)
[2019-10-22] MEDS: DOXYcycline IV* 100 MG in NS 0.9% 250 ML* 250 ML IVPB SCH (09:43)
--- NOTE | 2019-10-22 09:44 | PN ---
Subjective Date of Service: 10/22/19 Interval History: Remains confused but more alert, agrees Agitated yesterday improved fentanyl for pain Titrated down from vapotherm to NC 15L Oriented to self and can pick "hospital" out of list of 3 places Objective Active Medications: Acetaminophen (Tylenol Tab*) 650 mg PO Q6H PRN PRN Reason: MILD PAIN or TEMP > 100.4 Last Admin: 10/19/19 19:55 Dose: 650 mg Albuterol/Ipratropium (Duoneb (Albuterol 2.5 Mg/Ipratropium 0.5 Mg)) 1 neb INH Q4H PRN PRN Reason: SOB/WHEEZING Last Admin: 10/17/19 13:43 Dose: 1 neb Apixaban (Eliquis*) 5 mg PO BID [facility] Last Admin: 10/21/19 23:50 Dose: Not Given Atorvastatin Calcium (Lipitor*) 20 mg PO DAILY [facility] Last Admin: 10/21/19 10:37 Dose: 20 mg Cephalexin HCl (Keflex Cap*) 500 mg PO BID [facility] Last Admin: 10/21/19 23:50 Dose: Not Given Cholecalciferol (Vitamin D Tab*) 2,000 units PO QAM [facility] Last Admin: 10/21/19 10:35 Dose: 2,000 units Clopidogrel Bisulfate (Plavix Tab*) 75 mg PO DAILY [facility] Last Admin: 10/21/19 10:36 Dose: 75 mg Dextrose (Dextrose 50% Vial 50 Ml*) 25 ml IV PUSH .FOR FS < 60 - SS PRN PRN Reason: FS < 60 Last Admin: 10/20/19 08:48 Dose: 25 ml Digoxin (Lanoxin Tab*) 0.125 mg PO EVERY OTHER DAY [facility] Last Admin: 10/20/19 15:29 Dose: 0.125 mg Docusate Sodium (Colace Cap*) 100 mg PO DAILY PRN PRN Reason: CONSTIPATION Last Admin: 10/19/19 11:20 Dose: 100 mg Fentanyl Citrate (Fentanyl*) 25 mcg IV SLOW PU Q4H PRN PRN Reason: PAIN - SEVERE Last Admin: 10/21/19 20:36 Dose: 25 mcg Gabapentin (Neurontin Cap(*)) 600 mg PO QPM [facility] Last Admin: 10/21/19 23:50 Dose: Not Given Doxycycline Hyclate 100 mg/ (Sodium Chloride) 250 mls @ 250 mls/hr IVPB Q12HR [facility] Last Admin: 10/21/19 21:12 Dose: 250 mls/hr Sodium Chloride (Ns 0.9% 1000 Ml) 1,000 mls @ 75 mls/hr IV PER RATE [facility] Stop: 10/22/19 23:04 Insulin Human Lispro (Humalog*) 0 units SUBCUT Q4H [facility]; Protocol Last Admin: 10/22/19 09:34 Dose: Not Given Lorazepam (Ativan Tab(*)) 0.5 mg PO Q8H PRN PRN Reason: ANXIETY Last Admin: 10/21/19 17:22 Dose: 0.5 mg Magnesium Oxide (Magox 400 Tab*) 400 mg PO DAILY [facility] Last Admin: 10/21/19 10:36 Dose: 400 mg Metoprolol Tartrate (Lopressor Tab*) 100 mg PO BID [facility] Last Admin: 10/21/19 23:50 Dose: Not Given Mometasone Furoate/Formoterol Fumar (Dulera 200/5 Mdi*) 2 puff INH BID [facility] Ondansetron HCl (Zofran Inj*) 4 mg IV Q6H PRN PRN Reason: NAUSEA Last Admin: 10/21/19 13:15 Dose: 4 mg Oxcarbazepine (Trileptal Tab(*)) 300 mg PO BID [facility] Last Admin: 10/21/19 23:50 Dose: Not Given Pantoprazole Sodium (Protonix Tab*) 40 mg PO DAILY [facility] Last Admin: 10/21/19 10:37 Dose: 40 mg Prednisone (Deltasone 10 Mg Tab) 20 mg PO DAILY [facility]; Taper Stop: 10/23/19 10:59 Last Admin: 10/21/19 10:36 Dose: 20 mg Simethicone (Mylicon Tab*) 80 mg PO ACHS PRN PRN Reason: INDIGESTION Tiotropium [place]/Olodaterol (Stiolto Respimat Inh Bowman (60 Puff)) 2 puff INH DAILY [facility] Last Admin: 10/22/19 08:52 Dose: 2 puff Vital Signs - 8 hr 10/22/19 10/22/19 10/22/19 02:00 03:00 04:00 Temperature 97.3 F 97.0 F 96.3 F Pulse Rate 80 74 94 Respiratory 16 17 18 Rate Blood Pressure 109/55 111/52 108/61 (mmHg) O2 Sat by Pulse 99 100 98 Oximetry 10/22/19 10/22/19 10/22/19 05:00 06:00 06:01 Temperature 96.6 F 96.3 F 96.4 F Pulse Rate 72 82 69 Respiratory 15 16 21 Rate Blood Pressure 133/80 (mmHg) O2 Sat by Pulse 99 100 95 Oximetry 10/22/19 10/22/19 10/22/19 07:00 07:01 08:00 Temperature 96.3 F 96.3 F 96.1 F Pulse Rate 69 75 84 Respiratory 16 16 13 Rate Blood Pressure 120/58 127/97 (mmHg) O2 Sat by Pulse 100 100 92 Oximetry 10/22/19 10/22/19 09:00 09:01 Temperature 96.6 F 96.6 F Pulse Rate 74 77 Respiratory 16 15 Rate Blood Pressure 108/43 (mmHg) O2 Sat by Pulse 100 100 Oximetry Oxygen Devices in Use Now: Nasal Cannula - 15L Appearance: chronically ill, NAD Eyes: No Scleral Icterus, PERRLA Ears/Nose/Mouth/Throat: - - dry mm Respiratory: Symmetrical Chest Expansion and Respiratory Effort, - - decreased BS, does not take deep breaths, rales notable in bases Cardiovascular: - - distant HS Abdominal: NL Sounds; No Tenderness; No Distention, No Hepatosplenomegaly Extremities: No Edema Neurological: - - AOX2 to self, "hospital" if given 3 options, thinks its the 1970s, follows simple commands, moves allextremities Result Diagrams: 10/22/19 04:03 10/22/19 04:54 Assess/Plan/Problems-Billing Assessment: Mr. Berrios is a 68 y.o male with a past medical hx of COPD on 3.5L home O2, systolic CHF, afib, JOSIAH, who presented to the ER with 1 day shortness of breath found with respiratory failure with stay complicated by KEKE Recent stay and [place] [facility] [place] [place]28/19 on 35 days of Keflex PO for L olecranon bursitis/possible osteo(MSSA+) - Patient Problems (1) Prolonged QT interval Comment: qtc prolonging meds held (2) Acute kidney failure Comment: Acute on chronic Suspect intravascular volume depletion in setting of illness and diuresis Stable vs very slightly improved since yesterday (net negative 400 cc) Hold diuresis and aim for net positive today. Normal saline at 75cc/hr for 1 liter (3) Hyperkalemia Comment: patiromer x once 10/21/19 stable (4) Acute and chronic respiratory failure with hypoxia Comment: -Secondary to acute systolic CHF exacerbation on presentation - Has significant underlying lung dz at baseline which requires 3.5 L home oxygen and BiPAP at night. Pulm at [place] is Dr. Lyn - restart tiotropium, add dulera 10/22/19 - Currently improving after diuresis. Weight down since admission. - Worsneing KEKE and holding lasix 11/22 KEKE -prednisone 20mg - can consider increasing (5) Atrial fibrillation Comment: -Rate controlled. -Continue Apixaban, digoxin and Metoprolol. (6) Confusion Comment: -He has baseline mild cognitive impairment or dementia, now exacerbated in the setting of hypoxia and multiple hospital admissions. Suspect toxic metabolic encephalopathy. 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 Status and Disposition: inpatient - discussed with ICU physician and will transfer care for closer observation and management
[2019-10-22] MEDS ORDERED: NS 0.9% 1000 ML** 1,000 ML IV SCH (09:45)
[2019-10-22] MEDS: Mometasone/Formoter 200/5 MDI INH SCH ×2 (11:46→19:09)
[2019-10-22] MEDS: Cholecalciferol TAB* 1000 UNITS PO SCH (11:49)
[2019-10-22] MEDS: Apixaban* 5 MG TAB PO SCH ×2 (11:49→19:58)
[2019-10-22] MEDS: Clopidogrel TAB* 75 MG PO SCH (11:49)
[2019-10-22] MEDS: Atorvastatin* 20 MG TAB PO SCH (11:49)
[2019-10-22] MEDS: Digoxin TAB* 0.125 MG PO SCH (11:49)
[2019-10-22] MEDS: Cephalexin CAP* 500 MG PO SCH ×2 (11:49→19:58)
[2019-10-22] MEDS: Magnesium Oxide TAB* 400 MG PO SCH (11:50)
[2019-10-22] MEDS: OXcarbazepine TAB(*) 300 MG PO SCH ×2 (11:50→19:59)
[2019-10-22] MEDS: Metoprolol Tartrate TAB* 100 MG TAB PO SCH ×2 (11:50→19:58)
[2019-10-22] MEDS: Pantoprazole TAB * 40 MG TAB PO SCH (11:50)
--- NOTE | 2019-10-22 12:04 | PN ---
Date of Service: 10/22/19 - 7 Critical Care Services: 69 yo M with CAD, Afib, PTSD, COPD and CHF presents to the ED on 10/16 with respiratory distress. Per patient he had 2 days of shortness of breath, worsening. Minimal relief from inhaler. [facility] for CHF exacerbation. 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 On evaluation in the ED his vital signs were stable. Pulse ox 92%. Physical exam notable for mild distress. HR irregularly irregular. mild bilateral wheezing with increased work of breathing and bibasilar crackles noted. WBC 6.9. Cr 1.56. CXR consistent with CHF. EKG with atrial fibrillation, rate 80. unchanged from EKG done 09/22/2019. While in ED, pt had worsening dyspnea and sats dipped to 80s on 3L of O2 (home rate 3.5-4L). Duonebs started, O2 increased and admitted. 10/17: Agitated and refusing BiPAP at night. Per family patient has PTSD and has difficulty tolerating BiPAP at home - they usually have him take his ativan and then once he is sleeping applies BiPAP. Requiring 10L via mask. Lasix for diuresis, dose decreased given rise in creatinine. 10/18: Remains lethargic. ABG with respiratory acidosis; started on BiPAP with subsequent improvement in mental status. 10/19: lethargic again in AM. tolerated biPAP intermittently overnight. Lasix discontinued given rise in BUN & creatinine. 10/20: Lethargic, nonverbal but following commands. Given Valium overnight to allow for pt to tolerate BiPAP. ICU consulted. Noted to have prolonged QTC and psycotropic medications discontinued. Tried on highflow to see if he would be less anxious. Lasix x 1. TTE done with slight worsening of EF as compared to prior. Cardiology consulted. 10/21: Unchanged. on vapotherm. Creatinine continues to rise, further diuresis held. Anxious throughout day. restarted on home Ativan as this should not affect QTc and Gabapentin to prevent withdrawal (also should not affect QTc). 10/22: Weaned down to fiO2 @ 10 L. Off vapotherm since 10/21. Intermittently refusing to participate in exam; likely secondary to chronic psychiatric diagnoses. Vital Signs: Temp Pulse Resp BP SpO2 FiO2 96.4 F 81 18 104/44 98 80 10/22/19 11:01 10/22/19 11:01 10/22/19 11:54 10/22/19 11:01 10/22/19 11:01 10/21 12:00 Physical Exam: Gen: resting comfortably HEENT: NC in place Lungs: distant but clear bilaterally Cardiac: RRR Abdomen: soft, nondistended Extremities: warm, dry Neuro: awakens to voice but closes eyes again Fluid Balance (Past 24 Hours): I= O= Net Intake & Output 10/20/19 10/21/19 10/22/19 10/23/19 06:59 06:59 06:59 06:59 Intake Total 1214 995 902 Output Total 1045 2010 1223 305 Balance 169 -1015 -321 -305 Weight 201 lb 12.814 oz 204 lb 9 oz 203 lb 11.937 oz Intake: IV Fluids 203 30 ABX - DOXYCYCLINE 30 NS 173 30 IVPB 546 525 512 ABX - DOXYCYCLINE 546 525 512 Oral 465 470 360 Output: Urine 470 1050 [place] 747 662 2559 305 Labs: Laboratory Results - last 24 hr 10/21/19 10/21/19 10/21/19 12:16 12:45 15:50 WBC RBC Hgb Hct MCV MCH MCHC RDW Plt Count MPV Neut % (Auto) Lymph % (Auto) [place] % (Auto) Eos % (Auto) Baso % (Auto) Absolute Neuts (auto) Absolute Lymphs (auto) Absolute Monos (auto) Absolute Eos (auto) Absolute Basos (auto) Absolute Nucleated RBC Nucleated RBC % Patient Temperature ABG pH ABG pH (Temp Correct) ABG pCO2 ABG pCO2 (Temp Corrct ABG pO2 ABG pO2 (Temp Correct ABG HCO3 ABG O2 Saturation ABG Base Excess Respiration Rate Ventilator Type Vent Mode FiO2 Inspiratory Time PEEP Pressure Support Pressure Control EPAP IPAP BiPAP Sodium Potassium Chloride Carbon Dioxide Anion Gap BUN Creatinine Est GFR ( Amer) Est GFR (Non-Af Amer) BUN/Creatinine Ratio Glucose POC Glucose (mg/dL) 198 H Calcium Phosphorus Magnesium Total Bilirubin AST ALT Alkaline Phosphatase Troponin I 0.07 H* 0.07 H* B-Natriuretic Peptide Total Protein Albumin Globulin Albumin/Globulin Ratio 01/11/0910/22/19 10/22/19 15:50 00:07 04:03 WBC 8.0 RBC 4.81 Hgb 12.2 L Hct 40 L MCV 84 MCH 25 L MCHC 30 L RDW 20 H Plt Count 173 MPV 9.1 Neut % (Auto) 86.7 Lymph % (Auto) 3.9 [place] % (Auto) 8.7 Eos % (Auto) 0.4 Baso % (Auto) 0.3 Absolute Neuts (auto) 6.9 Absolute Lymphs (auto) 0.3 L Absolute Monos (auto) 0.7 Absolute Eos (auto) 0.0 Absolute Basos (auto) 0.0 Absolute Nucleated RBC 0.1 Nucleated RBC % 0.8 Patient Temperature ABG pH ABG pH (Temp Correct) ABG pCO2 ABG pCO2 (Temp Corrct ABG pO2 ABG pO2 (Temp Correct ABG HCO3 ABG O2 Saturation ABG Base Excess Respiration Rate Ventilator Type Vent Mode FiO2 Inspiratory Time PEEP Pressure Support Pressure Control EPAP IPAP BiPAP Sodium Potassium Chloride Carbon Dioxide Anion Gap BUN Creatinine Est GFR ( Amer) Est GFR (Non-Af Amer) BUN/Creatinine Ratio Glucose POC Glucose (mg/dL) 163 H 140 H Calcium Phosphorus Magnesium Total Bilirubin AST ALT Alkaline Phosphatase Troponin I B-Natriuretic Peptide Total Protein Albumin Globulin Albumin/Globulin Ratio 10/22/19 10/22/19 10/22/19 04:03 04:54 04:54 WBC RBC Hgb Hct MCV MCH MCHC RDW Plt Count MPV Neut % (Auto) Lymph % (Auto) [place] % (Auto) Eos % (Auto) Baso % (Auto) Absolute Neuts (auto) Absolute Lymphs (auto) Absolute Monos (auto) Absolute Eos (auto) Absolute Basos (auto) Absolute Nucleated RBC Nucleated RBC % Patient Temperature ABG pH ABG pH (Temp Correct) ABG pCO2 ABG pCO2 (Temp Corrct ABG pO2 ABG pO2 (Temp Correct ABG HCO3 ABG O2 Saturation ABG Base Excess Respiration Rate Ventilator Type Vent Mode FiO2 Inspiratory Time PEEP Pressure Support Pressure Control EPAP IPAP BiPAP Sodium Cancelled 141 Potassium Cancelled 4.9 Chloride Cancelled 108 Carbon Dioxide Cancelled 25 Anion Gap Cancelled 8 BUN Cancelled 95 H Creatinine Cancelled 2.61 H Est GFR ( Amer) Cancelled 29.5 Est GFR (Non-Af Amer) Cancelled 24.4 BUN/Creatinine Ratio Cancelled 36.4 H Glucose Cancelled 123 H POC Glucose (mg/dL) Calcium Cancelled 8.4 L Phosphorus Cancelled 5.8 H Magnesium Cancelled 2.2 Total Bilirubin Cancelled 1.00 AST Cancelled 144 H ALT Cancelled 258 H Alkaline Phosphatase Cancelled 163 H Troponin I 0.05 H* B-Natriuretic Peptide > 1300 H Total Protein Cancelled 5.0 L Albumin Cancelled 3.1 L Globulin Cancelled 1.9 L Albumin/Globulin Ratio Cancelled 1.6 10/22/19 10/22/19 07:16 09:33 WBC RBC Hgb Hct MCV MCH MCHC RDW Plt Count MPV Neut % (Auto) Lymph % (Auto) [place] % (Auto) Eos % (Auto) Baso % (Auto) Absolute Neuts (auto) Absolute Lymphs (auto) Absolute Monos (auto) Absolute Eos (auto) Absolute Basos (auto) Absolute Nucleated RBC Nucleated RBC % Patient Temperature Not Reportable ABG pH 7.33 L ABG pH (Temp Correct) Not Reportable ABG pCO2 49 H ABG pCO2 (Temp Corrct Not Reportable ABG pO2 100 ABG pO2 (Temp Correct Not Reportable ABG HCO3 24.3 ABG O2 Saturation 99.2 H ABG Base Excess -0.7 Respiration Rate Not Reportable Ventilator Type Not Reportable Vent Mode Not Reportable FiO2 15 Inspiratory Time Not Reportable PEEP Not Reportable Pressure Support Not Reportable Pressure Control Not Reportable EPAP Not Reportable IPAP Not Reportable BiPAP Not Reportable Sodium Potassium Chloride Carbon Dioxide Anion Gap BUN Creatinine Est GFR ( Amer) Est GFR (Non-Af Amer) BUN/Creatinine Ratio Glucose POC Glucose (mg/dL) 139 H Calcium Phosphorus Magnesium Total Bilirubin AST ALT Alkaline Phosphatase Troponin I B-Natriuretic Peptide Total Protein Albumin Globulin Albumin/Globulin Ratio Studies: 10/22 CXR - pulmonary intersitital edema, small left pleural effusion. bibasilar atelectasis vs consolidation 10/20 CXR - consistent with CHF 10/20 TTE LVEF 35-40% akinesis of apicalinferior myocardium, hypokinesis fo basal midinferior myocardium. severe dilation of left atrium, moderate dilation of right atrium. mild to moderate regurgitation of mitral valve mild to moderate regurgitation of aortic valve moderate pulmonary artery hypertension 10/19 CXR - right upper lobe airspace disease, interstitial edema Nutrition: heart healthy diet Impression: 69 yo M with CHF and COPD admitted on 10/16 with respiratory distress after recent hospitalization at [place] for CHF exacerbation. Found to have pulmonary edema. Efforts at diuresis limited by rising creatinine secondary to cardiorenal syndrome. Respiratory function now improving despite continued presence of pulmonary edema and pleural effusion on CXR. Lab work now suggesting patient intravascularly depleted. Starting edgar hydration. Reintroducing home psych meds. Plan: Hospital Diagnoses: #1: Acute on chronic systolic CHF #2: Acute hypoxic respiratory failure #3: Pulmonary edema, cardiac cause #4: Cardiorenal syndrome Cardiovascular: (1) Acute on chronic systolic CHF; (2) Afib with RVR, now rate controlled; (3) prolonged QTc; (4) Essential HTN: (5) PVD; (6) CAD with angina and prior MS; (7) hx of hypertrophic cardiomyopathy with cardiomegaly; (8) hx of carotid stenosis; (9) Hyperlipidemia; (10) elevated troponin; (11) hx of aneurysm; (12) chronic Essential HTN -- HR 64-94 -- SBP 104-161 -- Telemetry -- TTE, 10/20: LVEF 35-40% akinesis of apicalinferior myocardium, hypokinesis fo basal midinferior myocardium. severe dilation of left atrium, moderate dilation of right atrium. mild to moderate regurgitation of mitral valve mild to moderate regurgitation of aortic valve moderate pulmonary artery hypertension -- Cardiac markers Trop 0.05 from 0.07 BNP >1300, follow trend -- eliquis -- Plavix -- Atorvastatin -- Digoxin, Metoprolol -- Lasix on hold secondary to rising creatinine -- Cardiology following Home meds: Lasix, Atorvastatin, plavix, amlodipine, digoxin, metoprolol, eliquis Pulmonary: (1) Acute on chronic hypoxic respiratory failure, improving; (2) Pulmonary edema, cardiac cause, stable; (3) Obstructive sleep apnea; (4) COPD; ( 5) chronic asthma; (6) hx of seasonal allergies -- RR 12-33 -- sats 92-100 on 10 L NC -- CXR: pulmonary edema and pleural effusion -- AB.33/49/100/24.3/-.07. -- PRN Duonebs -- resume home Tiotropium bromide/olodaterol & Mometasone -- diuresis (for pulmonary edema) on hold secondary to rising creatinine -- pulmonary toilet Home meds: albuterol, tiotropium bromide/olodaterol, mometasone, home O2 3.5 to 4L NC Gastrointestinal: (1) elevated LFTs secondary to pulmonary congestion, improved ; (2) hx of irritable bowel syndrome; (3) GERD -- LFTs, follow trend Tbili 1.0 from 1.20 ALK 163 from 137 AST 144 from 311 ALT 258 from 378 -- diet: heart healthy -- bowel regimen: docusate, Magox -- ulcer prophylaxis: Protonix -- PRN zofran -- PRN Simethicone Home meds: Magox, simethicone, protonix, immodium Endocrine: (1) Diabetes mellitus type 2 -- monitor BGs -- SSI -- Prednisone Home meds: Metformin, Lantus Renal: (1) Acute on chronic stage 3 renal failure; (2) Cardiorenal syndrome; (3 ) Hyperkalemia; (4) BPH -- UOP: 50 ml/hr -- Cr 2.61 from 2.68 -- Lytes Na 141 from 139 K 4.9 Ca 8.4 Mag 2.2 Phos 5.8 Phos ordered with AM labs -- consult Nephrology if no improvement in renal function Home meds: Lasix, potassium chloride, flomax Infectious disease: No acute issues -- Tmax 99.0 -- WBC 8.0 from 11.3 -- Micro /30 UA negative Flu A&B negative -- ABX Keflex x 6 wks for olecranon bursitis (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) Doxycycline, 7 d course ends today Home meds: Keflex Neurologic: (1) Acute encephalopathy, improved; (2) Chronic pain; (3) Anxiety and depression; (4) hx of PTSD; (5) hx of CVA and TIA; (6) peripheral neuropathy ; (7) hx of substance abuse -- PRN Tylenol -- PRN Ativan for anxiety -- Trileptal -- resume home gabapentin so as to prevent withdrawal and faciliate tolerance of BiPAP -- PRN Fentanyl for chronic back pain Home meds: gabapentin, buspirone, zoloft, ativan, norco, trileptal Hematological: (1) chronic anemia -- Hgb 12.2 form 12.9 -- Plt 173 from 223 -- DVT prophylaxis: on eliquis -- Plavix -- cholecalciferol Home meds: plavix, cholecalciferol, eliquis Metabolic: No acute issues Home meds: None Other: No acute issues Home meds: None Deep vein thrombosis prophylaxis: on eliquis Dietary: Protonix Condition: serious Prognosis: guarded Code status: full Disposition:continue ICU Care Cumulative time spent in the care of this patient (excluding any procedure time) : at least 30 minutes. Patient care included clinical interview (with patient and/or family), bedside exam of the patient, review of labs, x-rays, and other ancillary data, coordination of (respiratory, nursing care, review of patient's records, discussion regarding patients management with involved consultants, primary physician, pharmacists, and other healthcare personnel (dietary, case management , physical/occupational therapy etc.) Critical Care Time: none
[2019-10-22] MEDS: fentaNYL* 50 MCG/ML 2 ML VIAL (100 MCG VIAL) IV SLOW PU PRN ×2 (12:45→16:02)
[2019-10-22] MEDS: Gabapentin CAP(*) 300 MG PO SCH (17:42)
[2019-10-22] MEDS: MICONAZOLE NITRATE 2% TOPICAL SCH (19:58)
[2019-10-23] MEDS: Insulin LISPRO* 1 UNITS UNIT SUBCUT SCH ×5 (04:18→19:57)
[2019-10-23 05:01] LABS: ABS Eosinophils 0.2 10^3/ul (0-0.6); ABS Lymphocytes 0.4 10^3/ul (1.0-4.8); ABS Monocytes 0.8 10^3/ul (0-0.8); ABS Neutrophils 6.8 10^3/ul (1.5-7.7); Eosinophil % 1.9 %; Hematocrit 38 % (42-52); Hemoglobin 11.7 g/dL (14.0-18.0); Lymphocyte % 4.5 %; Mean Corpuscular HGB Conc 31 g/dL (31-36); Mean Corpuscular Hemoglobin 25 pg (27-31); Mean Corpuscular Volume 81 fL (80-94); Nucleated Red Blood Cells % 0.5; Platelet Count 166 10^3/uL (150-450); Red Blood Count 4.64 10^6 /uL (4.18-5.48); Red Cell Distribution Width 19 % (10-15); White Blood Count 8.2 10^3/uL (3.5-10.8)
[2019-10-23 05:13] LABS: Albumin 3.1 g/dL (3.2-5.2); Albumin/Globulin Ratio 1.7 (1-3); BUN/Creatinine Ratio 40.9 (8-20); Calcium 8.1 mg/dL (8.6-10.3); EGFR African American 38.4 (>60); EGFR Non-African American 31.7 (>60); Globulin 1.8 g/dL (2-4); Indirect Bilirubin 0.5 mg/dL (0.3-1.0); Phosphorus 4.2 mg/dL (2.5-5.0); Potassium 4.2 mmol/L (3.5-5.0); Total Bilirubin 0.8 mg/dL (0.2-1.0); Total Protein 4.9 g/dL (6.4-8.9)
[2019-10-23] MEDS: Mometasone/Formoter 200/5 MDI INH SCH ×2 (07:43→18:56)
[2019-10-23] MEDS: Tiotropium Brom/Olodaterol MDI INH SCH (07:43)
[2019-10-23] MEDS: OXcarbazepine TAB(*) 300 MG PO SCH ×2 (08:28→20:17)
[2019-10-23] MEDS: Cholecalciferol TAB* 1000 UNITS PO SCH (08:28)
[2019-10-23] MEDS: Apixaban* 5 MG TAB PO SCH ×2 (08:29→20:17)
[2019-10-23] MEDS: Cephalexin CAP* 500 MG PO SCH ×2 (08:29→20:16)
[2019-10-23] MEDS: Clopidogrel TAB* 75 MG PO SCH (08:29)
[2019-10-23] MEDS: Magnesium Oxide TAB* 400 MG PO SCH (08:29)
[2019-10-23] MEDS: Metoprolol Tartrate TAB* 100 MG TAB PO SCH ×2 (08:29→20:17)
[2019-10-23] MEDS: Pantoprazole TAB * 40 MG TAB PO SCH (08:30)
[2019-10-23] MEDS: Atorvastatin* 20 MG TAB PO SCH (08:30)
--- NOTE | 2019-10-23 09:12 | PN ---
Date of Service: 10/23/19 - HD 8 Critical Care Services: 69 yo M with CAD, Afib, PTSD, COPD and CHF presents to the ED on 10/16 with respiratory distress. Per patient he had 2 days of shortness of breath, worsening. Minimal relief from inhaler. [facility] for CHF exacerbation. 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 On evaluation in the ED his vital signs were stable. Pulse ox 92%. Physical exam notable for mild distress. HR irregularly irregular. mild bilateral wheezing with increased work of breathing and bibasilar crackles noted. WBC 6.9. Cr 1.56. CXR consistent with CHF. EKG with atrial fibrillation, rate 80. unchanged from EKG done 09/22/2019. While in ED, pt had worsening dyspnea and sats dipped to 80s on 3L of O2 (home rate 3.5-4L). Duonebs started, O2 increased and admitted. 10/17: Agitated and refusing BiPAP at night. Per family patient has PTSD and has difficulty tolerating BiPAP at home - they usually have him take his ativan and then once he is sleeping applies BiPAP. Requiring 10L via mask. Lasix for diuresis, dose decreased given rise in creatinine. 10/18: Remains lethargic. ABG with respiratory acidosis; started on BiPAP with subsequent improvement in mental status. 10/19: lethargic again in AM. tolerated biPAP intermittently overnight. Lasix discontinued given rise in BUN & creatinine. 10/20: Lethargic, nonverbal but following commands. Given Valium overnight to allow for pt to tolerate BiPAP. ICU consulted. Noted to have prolonged QTC and psycotropic medications discontinued. Tried on highflow to see if he would be less anxious. Lasix x 1. TTE done with slight worsening of EF as compared to prior. Cardiology consulted. 10/21: Unchanged. on vapotherm. Creatinine continues to rise, further diuresis held. Anxious throughout day. restarted on home Ativan as this should not affect QTc and Gabapentin to prevent withdrawal (also should not affect QTc). 10/22: Weaned down to fiO2 @ 10 L. Off vapotherm since 10/21. Intermittently refusing to participate in exam; likely secondary to chronic psychiatric diagnoses, but also working well with PT and tolerating diet. Vital Signs: Temp Pulse Resp BP SpO2 FiO2 95.9 F 76 14 135/52 98 97 10/23/19 07:01 10/23/19 07:01 10/23/19 07:01 10/23/19 07:01 10/23/19 07:01 10/22 19:23 Physical Exam: Gen: resting comfortably HEENT: intact, NC in place Lungs: CTAB Cardiac: RRR Abdomen: soft, NTND Extremities: warm, dry Neuro:alert, conversant Fluid Balance (Past 24 Hours): I= O= Net Intake & Output 10/21/19 10/22/19 10/23/19 10/24/19 06:59 06:59 06:59 06:59 Intake Total 332 534 4941 Output Total 2009 1223 2244 95 Balance -1015 -321 770 -95 Weight 204 lb 9 oz 203 lb 11.937 oz 204 lb 12 oz Intake: IV Fluids 30 1184 NS 30 1184 IVPB 525 512 270 ABX - DOXYCYCLINE 525 512 270 Oral 111 126 5029 Output: Urine 1050 Gaivria 960 1223 2244 95 Other: Estimated Stool Amount Small Labs: Laboratory Results - last 24 hr 10/22/19 10/22/19 10/22/19 09:33 11:44 16:06 WBC RBC Hgb Hct MCV MCH MCHC RDW Plt Count MPV Neut % (Auto) Lymph % (Auto) [place] % (Auto) Eos % (Auto) Baso % (Auto) Absolute Neuts (auto) Absolute Lymphs (auto) Absolute Monos (auto) Absolute Eos (auto) Absolute Basos (auto) Absolute Nucleated RBC Nucleated RBC % Sodium Potassium Chloride Carbon Dioxide Anion Gap BUN Creatinine Est GFR ( Amer) Est GFR (Non-Af Amer) BUN/Creatinine Ratio Glucose POC Glucose (mg/dL) 139 H 171 H 269 H Calcium Phosphorus Total Bilirubin Direct Bilirubin Indirect Bilirubin AST ALT Alkaline Phosphatase B-Natriuretic Peptide Total Protein Albumin Globulin Albumin/Globulin Ratio 10/22/19 10/22/19 10/23/19 19:30 23:24 04:45 WBC 8.2 RBC 4.64 Hgb 11.7 L Hct 38 L MCV 81 MCH 25 L MCHC 31 RDW 19 H Plt Count 166 MPV 9.0 Neut % (Auto) 83.0 Lymph % (Auto) 4.5 [place] % (Auto) 10.3 Eos % (Auto) 1.9 Baso % (Auto) 0.3 Absolute Neuts (auto) 6.8 Absolute Lymphs (auto) 0.4 L Absolute Monos (auto) 0.8 Absolute Eos (auto) 0.2 Absolute Basos (auto) 0.0 Absolute Nucleated RBC 0.0 Nucleated RBC % 0.5 Sodium Potassium Chloride Carbon Dioxide Anion Gap BUN Creatinine Est GFR ( Amer) Est GFR (Non-Af Amer) BUN/Creatinine Ratio Glucose POC Glucose (mg/dL) 312 H 220 H Calcium Phosphorus Total Bilirubin Direct Bilirubin Indirect Bilirubin AST ALT Alkaline Phosphatase B-Natriuretic Peptide Total Protein Albumin Globulin Albumin/Globulin Ratio 10/23/19 10/23/19 10/23/19 04:45 04:45 07:46 WBC RBC Hgb Hct MCV MCH MCHC RDW Plt Count MPV Neut % (Auto) Lymph % (Auto) [place] % (Auto) Eos % (Auto) Baso % (Auto) Absolute Neuts (auto) Absolute Lymphs (auto) Absolute Monos (auto) Absolute Eos (auto) Absolute Basos (auto) Absolute Nucleated RBC Nucleated RBC % Sodium 142 Potassium 4.2 Chloride 110 Carbon Dioxide 28 Anion Gap 4 BUN 85 H Creatinine 2.08 H Est GFR ( Amer) 38.4 Est GFR (Non-Af Amer) 31.7 BUN/Creatinine Ratio 40.9 H Glucose 102 H POC Glucose (mg/dL) 80 Calcium 8.1 L Phosphorus 4.2 Total Bilirubin 0.80 Direct Bilirubin 0.30 H Indirect Bilirubin 0.5 AST 127 H ALT 241 H Alkaline Phosphatase 146 H B-Natriuretic Peptide > 1300 H Total Protein 4.9 L Albumin 3.1 L Globulin 1.8 L Albumin/Globulin Ratio 1.7 Studies: 10/22 CXR - pulmonary intersitital edema, small left pleural effusion. bibasilar atelectasis vs consolidation 10/20 CXR - consistent with CHF 10/20 TTE LVEF 35-40% akinesis of apicalinferior myocardium, hypokinesis fo basal midinferior myocardium. severe dilation of left atrium, moderate dilation of right atrium. mild to moderate regurgitation of mitral valve mild to moderate regurgitation of aortic valve moderate pulmonary artery hypertension 10/19 CXR - right upper lobe airspace disease, interstitial edema Nutrition: heart healthy diet Impression: 69 yo M with CHF and COPD admitted on 10/16 with respiratory distress after recent hospitalization at [facility] for CHF exacerbation. Found to have pulmonary edema. Efforts at diuresis limited by rising creatinine secondary to cardiorenal syndrome. Respiratory function now improving despite continued presence of pulmonary edema and pleural effusion on CXR. Lab work now suggesting patient intravascularly depleted. Starting edgar hydration. Reintroducing home psych meds. Plan: Hospital Diagnoses: #1: Acute on chronic systolic CHF #2: Acute hypoxic respiratory failure #3: Pulmonary edema, cardiac cause #4: Cardiorenal syndrome Cardiovascular: (1) Acute on chronic systolic CHF; (2) Afib with RVR, now rate controlled; (3) prolonged QTc; (4) Essential HTN: (5) PVD; (6) CAD with angina and prior [place]; (7) hx of hypertrophic cardiomyopathy with cardiomegaly; (8) hx of carotid stenosis; (9) Hyperlipidemia; (10) elevated troponin; (11) hx of aneurysm; (12) chronic Essential HTN -- HR 53-92 -- SBP 104-143 -- Telemetry -- TTE, 10/20: LVEF 35-40% akinesis of apicalinferior myocardium, hypokinesis fo basal midinferior myocardium. severe dilation of left atrium, moderate dilation of right atrium. mild to moderate regurgitation of mitral valve mild to moderate regurgitation of aortic valve moderate pulmonary artery hypertension -- Cardiac markers BNP >1300, follow trend -- eliquis -- Plavix -- Atorvastatin -- Digoxin, Metoprolol -- Lasix on hold secondary to rising creatinine -- Cardiology following Home meds: Lasix, Atorvastatin, plavix, amlodipine, digoxin, metoprolol, eliquis Pulmonary: (1) Acute on chronic hypoxic respiratory failure, improving; (2) Pulmonary edema, cardiac cause, stable; (3) Obstructive sleep apnea; (4) COPD; ( 5) chronic asthma; (6) hx of seasonal allergies -- RR 12-30 -- sats 93-100 on 10 L NC -- CXR: pulmonary edema and pleural effusion -- PRN Duonebs -- Tiotropium bromide/olodaterol & Mometasone -- diuresis (for pulmonary edema) on hold secondary to rising creatinine -- pulmonary toilet Home meds: albuterol, tiotropium bromide/olodaterol, mometasone, home O2 3.5 to 4L [place] Gastrointestinal: (1) elevated LFTs secondary to pulmonary congestion, improved ; (2) hx of irritable bowel syndrome; (3) GERD -- LFTs, follow trend Tbili 0.8 ALK 146 from 163 AST 127 from 144 ALT 241 from 258 -- diet: heart healthy -- bowel regimen: docusate, Magox -- ulcer prophylaxis: Protonix -- PRN zofran -- PRN Simethicone Home meds: Magox, simethicone, protonix, immodium Endocrine: (1) Diabetes mellitus type 2 -- monitor BGs -- SSI -- Prednisone taper Home meds: Metformin, Lantus Renal: (1) Acute on chronic stage 3 renal failure, improving; (2) Cardiorenal syndrome; (3) Hyperkalemia; (4) BPH -- UOP: 80 ml/hr -- Cr 2.08 from 2.61 -- Lytes Na 142 from 141 K 4.2 Ca 8.1 Mag 1.8 Phos 4.2 -- consult Nephrology if no improvement in renal function Home meds: Lasix, potassium chloride, flomax Infectious disease: No acute issues -- Tmax 98.4 -- WBC 8.2 from 8.0 -- Micro 10/19 UA negative Flu A&B negative -- ABX 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) Home meds: 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 Neurologic: (1) Acute encephalopathy, improved; (2) Chronic pain; (3) Anxiety and depression; (4) hx of PTSD; (5) hx of CVA and TIA; (6) peripheral neuropathy ; (7) hx of substance abuse -- PRN Tylenol -- PRN Ativan for anxiety -- Trileptal -- Gabapentin at night -- PRN Fentanyl for chronic back pain -- start home Zoloft at half dose, if QTc remains unchanged, increase to home dose Home meds: gabapentin, buspirone, zoloft, ativan, norco, trileptal Hematological: (1) chronic anemia -- Hgb 11.7 from -- Plt 166 from 173 -- DVT prophylaxis: on eliquis -- Plavix -- cholecalciferol Home meds: plavix, cholecalciferol, eliquis Metabolic: No acute issues Home meds: None Other: No acute issues Home meds: None Deep vein thrombosis prophylaxis: on eliquis Dietary: Protonix Condition: serious Prognosis: guarded Code status: full Disposition:continue ICU Care Cumulative time spent in the care of this patient (excluding any procedure time) : at least 30 minutes. Patient care included clinical interview (with patient and/or family), bedside exam of the patient, review of labs, x-rays, and other ancillary data, coordination of (respiratory, nursing care, review of patient's records, discussion regarding patients management with involved consultants, primary physician, pharmacists, and other healthcare personnel (dietary, case management , physical/occupational therapy etc.) Critical Care Time: none
[2019-10-23] MEDS: Sertraline* 50 MG TAB PO SCH (10:26)
[2019-10-23] MEDS: MICONAZOLE NITRATE 2% TOPICAL SCH ×2 (12:06→20:18)
[2019-10-23] MEDS: fentaNYL* 50 MCG/ML 2 ML VIAL (100 MCG VIAL) IV SLOW PU PRN (12:20)
--- NOTE | 2019-10-23 14:08 | PN ---
Progress Note - Progress Note Date of Service: 10/23/19 - update Note: Pt with 2 episodes of sinus pause lasting 2-3 seconds. Asymptomatic, BP stable. Will hold digoxin. Electrolytes within normal limits
[2019-10-23] MEDS: Morphine INJ* 2 MG/ML 1 ML SYRINGE (TWO MG - NEW SYRINGE VERSION) IV PRN ×3 (14:42→23:24)
[2019-10-23] MEDS: LORazepam TAB(*) 0.5 MG PO PRN (15:21)
[2019-10-23] MEDS: Gabapentin CAP(*) 300 MG PO SCH (17:54)
[2019-10-23] MEDS ORDERED: Lidocaine 5% OINT* TUBE TOPICAL ONE (22:30)
[2019-10-23] MEDS ORDERED: diPHENhydraMINE PO* 25 MG PO ONE (22:30)
[2019-10-24] MEDS: Insulin LISPRO* 1 UNITS UNIT SUBCUT SCH ×6 (00:07→20:01)
[2019-10-24] MEDS ORDERED: LORazepam INJ* 2 MG/ML 1 ML VIAL IV PUSH PRN (00:36)
[2019-10-24] MEDS ORDERED: Lorazepam PYXIS KEY PRN (00:37)
[2019-10-24] MEDS: Mometasone/Formoter 200/5 MDI INH SCH ×3 (01:50→19:47)
[2019-10-24 05:20] LABS: Albumin/Globulin Ratio 1.6 (1-3); BUN/Creatinine Ratio 41.5 (8-20); Calcium 8.3 mg/dL (8.6-10.3); EGFR African American 52.3 (>60); EGFR Non-African American 43.3 (>60); Globulin 1.9 g/dL (2-4); Potassium 4.2 mmol/L (3.5-5.0); Total Bilirubin 0.7 mg/dL (0.2-1.0); Total Protein 4.9 g/dL (6.4-8.9)
[2019-10-24] MEDS: Tiotropium Brom/Olodaterol MDI INH SCH (08:10)
[2019-10-24] MEDS: Cephalexin CAP* 500 MG PO SCH ×2 (09:14→21:44)
[2019-10-24] MEDS: Apixaban* 5 MG TAB PO SCH ×2 (09:14→21:44)
[2019-10-24] MEDS: Atorvastatin* 20 MG TAB PO SCH (09:14)
[2019-10-24] MEDS: Cholecalciferol TAB* 1000 UNITS PO SCH (09:15)
[2019-10-24] MEDS: MICONAZOLE NITRATE 2% TOPICAL SCH ×2 (09:15→22:19)
[2019-10-24] MEDS: Magnesium Oxide TAB* 400 MG PO SCH (09:15)
[2019-10-24] MEDS: OXcarbazepine TAB(*) 300 MG PO SCH ×2 (09:15→21:45)
[2019-10-24] MEDS: Clopidogrel TAB* 75 MG PO SCH (09:15)
[2019-10-24] MEDS: Sertraline* 50 MG TAB PO SCH (09:16)
[2019-10-24] MEDS: Pantoprazole TAB * 40 MG TAB PO SCH (09:16)
[2019-10-24] MEDS: Metoprolol Tartrate TAB* 100 MG TAB PO SCH ×2 (09:16→21:45)
--- NOTE | 2019-10-24 12:17 | PN ---
Date of Service: 10/24/19 - HD 9 Critical Care Services: 69 yo M with CAD, Afib, PTSD, COPD and CHF presents to the ED on 10/16 with respiratory distress. Per patient he had 2 days of shortness of breath, worsening. Minimal relief from inhaler. [facility] for CHF exacerbation. 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 On evaluation in the ED his vital signs were stable. Pulse ox 92%. Physical exam notable for mild distress. HR irregularly irregular. mild bilateral wheezing with increased work of breathing and bibasilar crackles noted. WBC 6.9. Cr 1.56. CXR consistent with CHF. EKG with atrial fibrillation, rate 80. unchanged from EKG done 09/22/2019. While in ED, pt had worsening dyspnea and sats dipped to 80s on 3L of O2 (home rate 3.5-4L). Duonebs started, O2 increased and admitted. 10/17: Agitated and refusing BiPAP at night. Per family patient has PTSD and has difficulty tolerating BiPAP at home - they usually have him take his ativan and then once he is sleeping applies BiPAP. Requiring 10L via mask. Lasix for diuresis, dose decreased given rise in creatinine. 10/18: Remains lethargic. ABG with respiratory acidosis; started on BiPAP with subsequent improvement in mental status. 10/19: lethargic again in AM. tolerated biPAP intermittently overnight. Lasix discontinued given rise in BUN & creatinine. 10/20: Lethargic, nonverbal but following commands. Given Valium overnight to allow for pt to tolerate BiPAP. ICU consulted. Noted to have prolonged QTC and psycotropic medications discontinued. Tried on highflow to see if he would be less anxious. Lasix x 1. TTE done with slight worsening of EF as compared to prior. Cardiology consulted. 10/21: Unchanged. on vapotherm. Creatinine continues to rise, further diuresis held. Anxious throughout day. restarted on home Ativan as this should not affect QTc and Gabapentin to prevent withdrawal (also should not affect QTc). 10/22: Weaned down to fiO2 @ 10 L. Off vapotherm since 10/21. Intermittently refusing to participate in exam; likely secondary to chronic psychiatric diagnoses, but also working well with PT and tolerating diet. 10/23: More alert. Continuing to require O2@10LPM. Had two episodes of brief sinus pause (2sec). Digoxin held. 10/24: No overnight events. Vital Signs: Temp Pulse Resp BP SpO2 FiO2 98.1 F 63 10 134/60 88 97 10/24/19 11:01 10/24/19 11:01 10/24/19 11:01 10/24/19 11:10/24/19 11:10/23 16:00 Physical Exam: Gen: restless HEENT: NC in place Lungs: CTAB Cardiac: RRR Abdomen: soft, NTND Extremities: moving equally, minimal edema Neuro: confused, restless Fluid Balance (Past 24 Hours): I= O= Net Intake & Output 10/22/19 10/23/19 10/24/19 10/25/19 06:59 06:59 06:59 06:59 Intake Total 902 3014 800 540 Output Total 1223 2244 2038 325 Balance -321 770 -1238 215 Weight 203 lb 11.937 oz 204 lb 12 oz 206 lb 3.2 oz Intake: IV Fluids 30 1184 NS 30 1184 IVPB 512 270 ABX - DOXYCYCLINE 512 270 Oral 360 1560 800 540 Output: Urine 700 Gaviria 1223 2244 1338 325 Other: Estimated Stool Amount Small Small Labs: Laboratory Results - last 24 hr 10/23/19 10/23/19 10/23/19 04:07 12:44 16:47 Sodium Potassium Chloride Carbon Dioxide Anion Gap BUN Creatinine Est GFR ( Amer) Est GFR (Non-Af Amer) BUN/Creatinine Ratio Glucose POC Glucose (mg/dL) 109 H 188 H 259 H Calcium Phosphorus Total Bilirubin AST ALT Alkaline Phosphatase B-Natriuretic Peptide Total Protein Albumin Globulin Albumin/Globulin Ratio 10/23/19 10/23/19 10/24/19 19:48 23:28 04:44 Sodium Potassium Chloride Carbon Dioxide Anion Gap BUN Creatinine Est GFR ( Amer) Est GFR (Non-Af Amer) BUN/Creatinine Ratio Glucose POC Glucose (mg/dL) 337 H 262 H Calcium Phosphorus Total Bilirubin AST ALT Alkaline Phosphatase B-Natriuretic Peptide > 1300 H Total Protein Albumin Globulin Albumin/Globulin Ratio 10/24/19 10/24/19 10/24/19 04:44 04:44 07:52 Sodium 142 Potassium 4.2 Chloride 109 Carbon Dioxide 29 Anion Gap 4 BUN 66 H Creatinine 1.59 H Est GFR ( Amer) 52.3 Est GFR (Non-Af Amer) 43.3 BUN/Creatinine Ratio 41.5 H Glucose 79 POC Glucose (mg/dL) 85 68 L Calcium 8.3 L Phosphorus 3.0 Total Bilirubin 0.70 AST 107 H ALT 206 H Alkaline Phosphatase 145 H B-Natriuretic Peptide Total Protein 4.9 L Albumin 3.0 L Globulin 1.9 L Albumin/Globulin Ratio 1.6 10/24/19 10/24/19 08:23 09:39 Sodium Potassium Chloride Carbon Dioxide Anion Gap BUN Creatinine Est GFR ( Amer) Est GFR (Non-Af Amer) BUN/Creatinine Ratio Glucose POC Glucose (mg/dL) 73 157 H Calcium Phosphorus Total Bilirubin AST ALT Alkaline Phosphatase B-Natriuretic Peptide Total Protein Albumin Globulin Albumin/Globulin Ratio Studies: 10/22 CXR - pulmonary intersitital edema, small left pleural effusion. bibasilar atelectasis vs consolidation 10/20 CXR - consistent with CHF 10/20 TTE LVEF 35-40% akinesis of apicalinferior myocardium, hypokinesis fo basal midinferior myocardium. severe dilation of left atrium, moderate dilation of right atrium. mild to moderate regurgitation of mitral valve mild to moderate regurgitation of aortic valve moderate pulmonary artery hypertension 10/19 CXR - right upper lobe airspace disease, interstitial edema Nutrition: heart healthy diet Impression: 69 yo M with CHF and COPD admitted on 10/16 with respiratory distress after recent hospitalization at [facility] for CHF exacerbation. Found to have pulmonary edema. Efforts at diuresis limited by rising creatinine secondary to cardiorenal syndrome. Respiratory function now improving despite continued presence of pulmonary edema and pleural effusion on CXR. Lab work now suggesting patient intravascularly depleted. Starting edgar hydration. Reintroducing home psych meds. Plan: Hospital Diagnoses: #1: Acute on chronic systolic CHF #2: Acute hypoxic respiratory failure #3: Pulmonary edema, cardiac cause #4: Cardiorenal syndrome Cardiovascular: (1) Acute on chronic systolic CHF; (2) Afib with RVR, now rate controlled; (3) prolonged QTc; (4) Essential HTN: (5) PVD; (6) CAD with angina and prior [place]; (7) hx of hypertrophic cardiomyopathy with cardiomegaly; (8) hx of carotid stenosis; (9) Hyperlipidemia; (10) elevated troponin; (11) hx of aneurysm; (12) chronic Essential HTN -- HR 52-85 -- SBP 88-152, goal >88 -- Telemetry -- TTE, 10/20: LVEF 35-40% akinesis of apicalinferior myocardium, hypokinesis fo basal midinferior myocardium. severe dilation of left atrium, moderate dilation of right atrium. mild to moderate regurgitation of mitral valve mild to moderate regurgitation of aortic valve moderate pulmonary artery hypertension -- eliquis -- Plavix -- Atorvastatin -- Digoxin, Metoprolol -- Lasix on hold secondary to rising creatinine -- Cardiology following Home meds: Lasix, Atorvastatin, plavix, amlodipine, digoxin, metoprolol, eliquis Pulmonary: (1) Acute on chronic hypoxic respiratory failure, improving; (2) Pulmonary edema, cardiac cause, stable; (3) Obstructive sleep apnea; (4) COPD; ( 5) chronic asthma; (6) hx of seasonal allergies -- RR 10-24 -- sats 77-100 on 12 L NC -- PRN Duonebs -- Tiotropium bromide/olodaterol & Mometasone -- diuresis (for pulmonary edema) on hold secondary to rising creatinine -- pulmonary toilet Home meds: albuterol, tiotropium bromide/olodaterol, mometasone, home O2 3.5 to 4L NC Gastrointestinal: (1) elevated LFTs secondary to pulmonary congestion, improved ; (2) hx of irritable bowel syndrome; (3) GERD -- LFTs, follow trend Tbili 0.7 ALK 145 from 146 AST 107 from 127 ALT 206 from 241 -- diet: heart healthy -- bowel regimen: docusate, Magox -- ulcer prophylaxis: Protonix -- PRN zofran -- PRN Simethicone Home meds: Magox, simethicone, protonix, immodium Endocrine: (1) Diabetes mellitus type 2 -- monitor BGs -- SSI -- Prednisone taper Home meds: Metformin, Lantus Renal: (1) Acute on chronic stage 3 renal failure, improving; (2) Cardiorenal syndrome; (3) Hyperkalemia; (4) BPH -- UOP: 80 ml/hr, autodiuresing -- Cr 1.59 from 2.08 -- Lytes Na 142 from 142 K 4.2 Ca 8.3, on replacement Mag ordered Phos 3.0 Home meds: Lasix, potassium chloride, flomax Infectious disease: No acute issues -- Tmax 98.4 -- WBC ordered -- Micro 10/19 UA negative Flu A&B negative -- 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 Neurologic: (1) Acute encephalopathy, improved; (2) Chronic pain; (3) Anxiety and depression; (4) hx of PTSD; (5) hx of CVA and TIA; (6) peripheral neuropathy ; (7) hx of substance abuse -- PRN Tylenol -- PRN Ativan for anxiety -- Trileptal -- Gabapentin at night -- PRN Fentanyl for chronic back pain -- start home Zoloft at half dose, if QTc remains unchanged, increase to home dose Home meds: gabapentin, buspirone, zoloft, ativan, norco, trileptal Hematological: (1) chronic anemia -- Hgb ordered -- Plt ordered -- DVT prophylaxis: on eliquis -- Plavix -- cholecalciferol Home meds: plavix, cholecalciferol, eliquis Metabolic: No acute issues Home meds: None Other: No acute issues Home meds: None Deep vein thrombosis prophylaxis: on eliquis Dietary: Protonix Condition: serious Prognosis: guarded Code status: full Disposition:continue ICU Care Cumulative time spent in the care of this patient (excluding any procedure time) : at least 30 minutes. Patient care included clinical interview (with patient and/or family), bedside exam of the patient, review of labs, x-rays, and other ancillary data, coordination of (respiratory, nursing care, review of patient's records, discussion regarding patients management with involved consultants, primary physician, pharmacists, and other healthcare personnel (dietary, case management , physical/occupational therapy etc.) Critical Care Time: none
[2019-10-24] MEDS: Morphine INJ* 2 MG/ML 1 ML SYRINGE (TWO MG - NEW SYRINGE VERSION) IV PRN ×2 (12:37→22:42)
[2019-10-24] MEDS ORDERED: LORazepam TAB(*) 0.5 MG PO PRN (13:24)
[2019-10-24] MEDS: Haloperidol INJ IV/IM* 5 MG/ML AMP IV SLOW PU PRN (13:34)
[2019-10-24] MEDS ORDERED: Ziprasidone IM INJ* 20 MG/ML VIAL ONE (14:02)
[2019-10-24] MEDS ORDERED: Ziprasidone IM INJ* 20 MG/ML VIAL IM ONE (14:02)
[2019-10-24] MEDS: Dexmedetomidine* 1,000 MCG in NS 0.9% 250 ML* 240 ML IV SCH (15:01)
[2019-10-24 15:18] LABS: Urine Appearance Cloudy; Urine Bilirubin Negative (Negative); Urine Blood 3+ (Negative); Urine Color Amber; Urine Glucose 1+(50 mg/dL) (Negative); Urine Ketones Negative (Negative); Urine Nitrite Negative (Negative); Urine Protein 2+(100 mg/dL) (Negative); Urine Specific Gravity 1.017 (1.010-1.030); Urine Urobilinogen Negative (Negative)
[2019-10-24 15:23] LABS: Urine Bacteria Absent (Absent); Urine Red Blood Cell 3+(>10/hpf) (Absent); Urine White Blood Cell 3+(>20/hpf) (Absent)
[2019-10-24] MEDS: Gabapentin CAP(*) 300 MG PO SCH (17:27)
[2019-10-24] MEDS ORDERED: Melatonin 3 MG TAB PO SCH (21:00)
[2019-10-25] MEDS: Insulin LISPRO* 1 UNITS UNIT SUBCUT SCH ×6 (00:43→21:38)
[2019-10-25] MEDS: Morphine INJ* 2 MG/ML 1 ML SYRINGE (TWO MG - NEW SYRINGE VERSION) IV PRN ×2 (01:13→08:22)
[2019-10-25 04:04] LABS: Hematocrit 33 % (42-52); Hemoglobin 10.3 g/dL (14.0-18.0); Mean Corpuscular HGB Conc 32 g/dL (31-36); Mean Corpuscular Hemoglobin 25 pg (27-31); Mean Corpuscular Volume 81 fL (80-94); Mean Platelet Volume 8.8 fL (7.4-10.4); Platelet Count 124 10^3/uL (150-450); Red Blood Count 4.06 10^6 /uL (4.18-5.48); Red Cell Distribution Width 19 % (10-15); White Blood Count 10.4 10^3/uL (3.5-10.8)
[2019-10-25 04:21] LABS: Albumin 2.9 g/dL (3.2-5.2); Albumin/Globulin Ratio 1.5 (1-3); BUN/Creatinine Ratio 37.4 (8-20); Calcium 8.2 mg/dL (8.6-10.3); EGFR African American 53.9 (>60); EGFR Non-African American 44.5 (>60); Magnesium 2.1 mg/dL (1.9-2.7); Phosphorus 3.6 mg/dL (2.5-5.0); Potassium 5.5 mmol/L (3.5-5.0); Total Bilirubin 1.1 mg/dL (0.2-1.0); Total Protein 4.9 g/dL (6.4-8.9)
[2019-10-25] MEDS: Tiotropium Brom/Olodaterol MDI INH SCH (07:47)
[2019-10-25] MEDS: Mometasone/Formoter 200/5 MDI INH SCH ×2 (07:47→19:21)
[2019-10-25] MEDS ORDERED: Digoxin IV* 0.5 MG/2 ML AMP (0.25 MG/ML) IV SLOW PU ONE (08:36)
[2019-10-25] MEDS ORDERED: Furosemide IV* 10 MG/ML VIAL (40 MG) IV SLOW PU ONE (08:37)
[2019-10-25] MEDS: fentaNYL* 50 MCG/ML 2 ML VIAL (100 MCG VIAL) IV SLOW PU PRN (09:53)
[2019-10-25] MEDS: Apixaban* 5 MG TAB PO SCH (09:57)
[2019-10-25] MEDS: Clopidogrel TAB* 75 MG PO SCH (09:58)
[2019-10-25] MEDS: Cholecalciferol TAB* 1000 UNITS PO SCH (09:58)
[2019-10-25] MEDS: Magnesium Oxide TAB* 400 MG PO SCH (09:58)
[2019-10-25] MEDS: Atorvastatin* 20 MG TAB PO SCH (09:58)
[2019-10-25] MEDS: Cephalexin CAP* 500 MG PO SCH (09:58)
[2019-10-25] MEDS: Metoprolol Tartrate TAB* 100 MG TAB PO SCH (09:59)
[2019-10-25] MEDS: Sertraline* 50 MG TAB PO SCH (09:59)
[2019-10-25] MEDS: OXcarbazepine TAB(*) 300 MG PO SCH ×2 (09:59→22:06)
[2019-10-25] MEDS: Pantoprazole TAB * 40 MG TAB PO SCH (09:59)
[2019-10-25] MEDS: MICONAZOLE NITRATE 2% TOPICAL SCH (10:00)
[2019-10-25] MEDS: Enoxaparin(*) 100 MG/ML SYR SUBCUT SCH (11:04)
--- NOTE | 2019-10-25 11:08 | PN ---
Date of Service: 10/25/19 - HD 10 Critical Care Services: 69 yo M with CAD, Afib, PTSD, COPD and CHF presents to the ED on 10/16 with respiratory distress. Per patient he had 2 days of shortness of breath, worsening. Minimal relief from inhaler. [facility]13[facility]19 for CHF exacerbation. 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 On evaluation in the ED his vital signs were stable. Pulse ox 92%. Physical exam notable for mild distress. HR irregularly irregular. mild bilateral wheezing with increased work of breathing and bibasilar crackles noted. WBC 6.9. Cr 1.56. CXR consistent with CHF. EKG with atrial fibrillation, rate 80. unchanged from EKG done 09/22/2019. While in ED, pt had worsening dyspnea and sats dipped to 80s on 3L of O2 (home rate 3.5-4L). Duonebs started, O2 increased and admitted. 10/17: Agitated and refusing BiPAP at night. Per family patient has PTSD and has difficulty tolerating BiPAP at home - they usually have him take his ativan and then once he is sleeping applies BiPAP. Requiring 10L via mask. Lasix for diuresis, dose decreased given rise in creatinine. 10/18: Remains lethargic. ABG with respiratory acidosis; started on BiPAP with subsequent improvement in mental status. 10/19: lethargic again in AM. tolerated biPAP intermittently overnight. Lasix discontinued given rise in BUN & creatinine. 10/20: Lethargic, nonverbal but following commands. Given Valium overnight to allow for pt to tolerate BiPAP. ICU consulted. Noted to have prolonged QTC and psycotropic medications discontinued. Tried on highflow to see if he would be less anxious. Lasix x 1. TTE done with slight worsening of EF as compared to prior. Cardiology consulted. 10/21: Unchanged. on vapotherm. Creatinine continues to rise, further diuresis held. Anxious throughout day. restarted on home Ativan as this should not affect QTc and Gabapentin to prevent withdrawal (also should not affect QTc). 10/22: Weaned down to fiO2 @ 10 L. Off vapotherm since 10/21. Intermittently refusing to participate in exam; likely secondary to chronic psychiatric diagnoses, but also working well with PT and tolerating diet. 10/23: More alert. Continuing to require O2@10LPM. Had two episodes of brief sinus pause (2sec). Digoxin held. 10/24: Became more confused and delirious in the afternoon. No improvement with home Ativan dose. No improvement with either Haldol or Geodon. Started on Precedex. At same time of confusion also become hypoxic to low 80s. CO2 levels at baseline. Started on vapotherm. 10/25: Overnight had brief runs of what appeared to be a ventricular tachycardia. Digoxin restarted. Lasix x 1 given. Cardiology asked to reconsult. Vital Signs: Temp Pulse Resp BP SpO2 FiO2 99.7 F 98 35 144/79 92 100 10/25/19 10:02 10/25/19 10:02 10/25/19 10:02 10/25/19 10:10/25/19 10:02 10/25 08:00 Physical Exam: Gen: resting comfortably HEENT: vapotherm cannula in place Lungs: distant bilaterally, no crackes or wheezes Cardiac: irregularly irregular Abdomen: soft, obese, nontender Extremities: warm, dry, mild edema Neuro: sleeping soundly (conversant but delirious when awake) Fluid Balance (Past 24 Hours): I= O= Net Intake & Output 10/23/19 10/24/19 10/25/19 10/26/19 06:59 06:59 06:59 06:59 Intake Total 3014 800 968 Output Total 2244 2038 1253 120 Balance 770 -1238 -285 -120 Weight 204 lb 12 oz 206 lb 3.2 oz 214 lb 11.684 oz Intake: IV Fluids 1184 NS 1184 IVPB 270 ABX - DOXYCYCLINE 270 Medicated IV 128 Precedex 128 Oral 1560 800 840 Output: Urine 700 Gaviria 2244 1338 1253 120 Other: Estimated Stool Amount Small Small Labs: Laboratory Results - last 24 hr 10/24/19 10/24/19 10/24/19 12:16 14:36 16:37 WBC RBC Hgb Hct MCV MCH MCHC RDW Plt Count MPV Patient Temperature ABG pH ABG pH (Temp Correct) ABG pCO2 ABG pCO2 (Temp Corrct ABG pO2 ABG pO2 (Temp Correct ABG HCO3 ABG O2 Saturation ABG Base Excess Respiration Rate O2 Delivery Device Ventilator Type Vent Mode FiO2 Inspiratory Time PEEP Pressure Support Pressure Control EPAP IPAP BiPAP Sodium Potassium Chloride Carbon Dioxide Anion Gap BUN Creatinine Est GFR ( Amer) Est GFR (Non-Af Amer) BUN/Creatinine Ratio Glucose POC Glucose (mg/dL) 240 H 280 H Calcium Phosphorus Magnesium Total Bilirubin AST ALT Alkaline Phosphatase Ammonia B-Natriuretic Peptide Total Protein Albumin Globulin Albumin/Globulin Ratio Urine Color Nathalie Urine Appearance Cloudy Urine pH 6.0 Ur Specific [place] 1.017 Urine Protein 2+(100 mg/dl) A Urine Ketones Negative Urine Blood 3+ A Urine Nitrate Negative Urine Bilirubin Negative Urine Urobilinogen Negative Ur Leukocyte Esterase 1+ A Urine WBC (Auto) 3+(>20/hpf) A Urine RBC (Auto) 3+(>10/hpf) A Urine Bacteria Absent Urine Glucose 1+(50 mg/dl) A Urine Ascorbic Acid * A 10/24/19 10/25/19 10/25/19 19:58 00:25 03:59 WBC RBC Hgb Hct MCV MCH MCHC RDW Plt Count MPV Patient Temperature ABG pH ABG pH (Temp Correct) ABG pCO2 ABG pCO2 (Temp Corrct ABG pO2 ABG pO2 (Temp Correct ABG HCO3 ABG O2 Saturation ABG Base Excess Respiration Rate O2 Delivery Device Ventilator Type Vent Mode FiO2 Inspiratory Time PEEP Pressure Support Pressure Control EPAP IPAP BiPAP Sodium Potassium Chloride Carbon Dioxide Anion Gap BUN Creatinine Est GFR ( Amer) Est GFR (Non-Af Amer) BUN/Creatinine Ratio Glucose POC Glucose (mg/dL) 160 H 128 H Calcium Phosphorus Magnesium Total Bilirubin AST ALT Alkaline Phosphatase Ammonia B-Natriuretic Peptide > 1300 H Total Protein Albumin Globulin Albumin/Globulin Ratio Urine Color Urine Appearance Urine pH Ur Specific [place] Urine Protein Urine Ketones Urine Blood Urine Nitrate Urine Bilirubin Urine Urobilinogen Ur Leukocyte Esterase Urine WBC (Auto) Urine RBC (Auto) Urine Bacteria Urine Glucose Urine Ascorbic Acid 10/25/19 10/25/19 10/25/19 03:59 03:59 07:27 WBC 10.4 RBC 4.06 L Hgb 10.3 L Hct 33 L MCV 81 MCH 25 L MCHC 32 RDW 19 H Plt Count 124 L MPV 8.8 Patient Temperature Not Reportable ABG pH 7.42 ABG pH (Temp Correct) Not Reportable ABG pCO2 41 ABG pCO2 (Temp Corrct Not Reportable ABG pO2 108 H ABG pO2 (Temp Correct Not Reportable ABG HCO3 26.4 ABG O2 Saturation 99.2 H ABG Base Excess 1.9 Respiration Rate Not Reportable O2 Delivery Device vapo Ventilator Type Not Reportable Vent Mode Not Reportable FiO2 100 Inspiratory Time Not Reportable PEEP Not Reportable Pressure Support Not Reportable Pressure Control Not Reportable EPAP Not Reportable IPAP Not Reportable BiPAP Not Reportable Sodium 141 Potassium 5.5 H Chloride 110 Carbon Dioxide 27 Anion Gap 4 BUN 58 H Creatinine 1.55 H Est GFR ( Amer) 53.9 Est GFR (Non-Af Amer) 44.5 BUN/Creatinine Ratio 37.4 H Glucose 141 H POC Glucose (mg/dL) Calcium 8.2 L Phosphorus 3.6 Magnesium 2.1 Total Bilirubin 1.10 H AST 123 H ALT 195 H Alkaline Phosphatase 134 H Ammonia B-Natriuretic Peptide Total Protein 4.9 L Albumin 2.9 L Globulin 2.0 Albumin/Globulin Ratio 1.5 Urine Color Urine Appearance Urine pH Ur Specific [place] Urine Protein Urine Ketones Urine Blood Urine Nitrate Urine Bilirubin Urine Urobilinogen Ur Leukocyte Esterase Urine WBC (Auto) Urine RBC (Auto) Urine Bacteria Urine Glucose Urine Ascorbic Acid 10/25/19 10/25/19 07:51 08:43 WBC RBC Hgb Hct MCV MCH MCHC RDW Plt Count MPV Patient Temperature ABG pH ABG pH (Temp Correct) ABG pCO2 ABG pCO2 (Temp Corrct ABG pO2 ABG pO2 (Temp Correct ABG HCO3 ABG O2 Saturation ABG Base Excess Respiration Rate O2 Delivery Device Ventilator Type Vent Mode FiO2 Inspiratory Time PEEP Pressure Support Pressure Control EPAP IPAP BiPAP Sodium Potassium Chloride Carbon Dioxide Anion Gap BUN Creatinine Est GFR ( Amer) Est GFR (Non-Af Amer) BUN/Creatinine Ratio Glucose POC Glucose (mg/dL) 174 H Calcium Phosphorus Magnesium Total Bilirubin AST ALT Alkaline Phosphatase Ammonia 72 H B-Natriuretic Peptide Total Protein Albumin Globulin Albumin/Globulin Ratio Urine Color Urine Appearance Urine pH Ur Specific [place] Urine Protein Urine Ketones Urine Blood Urine Nitrate Urine Bilirubin Urine Urobilinogen Ur Leukocyte Esterase Urine WBC (Auto) Urine RBC (Auto) Urine Bacteria Urine Glucose Urine Ascorbic Acid Studies: 10/25 CXR - cardiomegaly with intesistial edema and pleural effusions 1/2 CXR - pulmonary intersitital edema, small left pleural effusion. bibasilar atelectasis vs consolidation 10/20 CXR - consistent with CHF 10/20 TTE LVEF 35-40% akinesis of apicalinferior myocardium, hypokinesis fo basal midinferior myocardium. severe dilation of left atrium, moderate dilation of right atrium. mild to moderate regurgitation of mitral valve mild to moderate regurgitation of aortic valve moderate pulmonary artery hypertension 10/19 CXR - right upper lobe airspace disease, interstitial edema Nutrition: NPO until mental status improved Impression: 69 yo M with CHF and COPD admitted on 10/16 with respiratory distress after recent hospitalization at [facility] for CHF exacerbation. Found to have pulmonary edema. Efforts at diuresis limited by rising creatinine secondary to cardiorenal syndrome. Respiratory function had been improving despite continued presence of pulmonary edema and pleural effusion on CXR. Renal function improved after lasix held for several days. Digoxin held x 2 days for sinus pauses. On 10/24 developed increased confusion and hypoxia. Started on Precedex for confusion and vapotherm. Lasix restarted. Digoxin restarted. Plan: Hospital Diagnoses: #1: Acute on chronic systolic CHF #2: Acute hypoxic respiratory failure #3: Acute encephalopathy, delirium #4: Cardiorenal syndrome Cardiovascular: (1) Acute on chronic systolic CHF; (2) Afib with RVR, now rate controlled; (3) prolonged QTc; (4) Essential HTN: (5) PVD; (6) CAD with angina and prior [place]; (7) hx of hypertrophic cardiomyopathy with cardiomegaly; (8) hx of carotid stenosis; (9) Hyperlipidemia; (10) elevated troponin; (11) hx of aneurysm; (12) chronic Essential HTN -- HR 52-85 -- SBP 79-152, goal >88 -- Telemetry -- TTE, 10/20: LVEF 35-40% akinesis of apicalinferior myocardium, hypokinesis fo basal midinferior myocardium. severe dilation of left atrium, moderate dilation of right atrium. mild to moderate regurgitation of mitral valve mild to moderate regurgitation of aortic valve moderate pulmonary artery hypertension -- changed from eliquis to therapeutic lovenox as not alert enough to safely swallow at this time -- Plavix (on hold at this time as unable to take PO) -- Atorvastatin (d/c'ed at this time as unable to take PO) -- Digoxin, Metoprolol (switched to IV) -- Lasix x 1 -- Cardiology asked to re-evaluate regarding new ventricular arrhythmia, sinus pauses and whether CHF is the predominant cause of his poor mentation, hypersomnia. Home meds: Lasix, Atorvastatin, plavix, amlodipine, digoxin, metoprolol, eliquis Pulmonary: (1) Acute on chronic hypoxic respiratory failure, improving; (2) Pulmonary edema, cardiac cause, stable; (3) Obstructive sleep apnea; (4) COPD; ( 5) chronic asthma; (6) hx of seasonal allergies -- RR 11-39 -- sats 83-100 on vaoptherm -- CXR, 10/25: cardiomegaly with intesistial edema and pleural effusions -- ABG: pH 7.42, pCO2 41, pO2 108, HCO3 26.4, BE 1.9, O2 sat 99.2 -- PRN Duonebs -- Tiotropium bromide/olodaterol & Mometasone -- Lasix x 1 -- pulmonary toilet Home meds: albuterol, tiotropium bromide/olodaterol, mometasone, home O2 3.5 to 4L [place] Gastrointestinal: (1) elevated LFTs secondary to pulmonary congestion, improved ; (2) hx of irritable bowel syndrome; (3) GERD -- LFTs, follow trend Tbili 1.1 from 0.7 ALK 134 from 145 AST 123 from 107 ALT 195 from 206 -- diet: NPO until mental status improved -- bowel regimen: None -- ulcer prophylaxis: Protonix -- PRN zofran Home meds: Magox, simethicone, protonix, immodium Endocrine: (1) Diabetes mellitus type 2 -- monitor BGs -- SSI -- Prednisone tapered off Home meds: Metformin, Lantus Renal: (1) Acute on chronic stage 3 renal failure, improving; (2) Cardiorenal syndrome; (3) Hyperkalemia; (4) BPH -- UOP: 50 ml/hr, up 10 lbs from admission weight -- Cr 1.55 from 1.59 -- Lytes Na 141 from 142 K 5.5, lasix given Ca 8.2, on replacement Mag 2.1 Phos 3.6 -- IVF: KVO -- Lasix x 1 Home meds: Lasix, potassium chloride, flomax Infectious disease: No acute issues -- Tmax 100.8 -- WBC 10.4 from 8.2 -- Micro 10/25 UA equivocal 10/19 UA negative Flu A&B negative -- ABX Keflex x 6 wks for olecranon bursitis (diag [employer]) Home meds: Keflex Neurologic: (1) Acute encephalopathy/delirium (2) Chronic pain; (3) Anxiety and depression; (4) hx of PTSD; (5) hx of CVA and TIA; (6) peripheral neuropathy ; (7) hx of substance abuse -- Trileptal -- Precedex gtt for delirium Home meds: gabapentin, buspirone, zoloft, ativan, norco, trileptal Hematological: (1) chronic anemia -- Hgb 10.3 from 11.7 -- Plt 124 from 166 -- DVT prophylaxis: therapeutic lovenox -- Plavix Home meds: plavix, cholecalciferol, eliquis Metabolic: No acute issues Home meds: None Other: No acute issues Home meds: None Deep vein thrombosis prophylaxis: on eliquis Dietary: Protonix Condition: serious Prognosis: guarded Code status: full Disposition:continue ICU Care updated at bedside regarding interval events and plan of care Cumulative time spent in the care of this patient (excluding any procedure time) : at least 50 minutes. Patient care included clinical interview (with patient and/or family), bedside exam of the patient, review of labs, x-rays, and other ancillary data, coordination of (respiratory, nursing care, review of patient's records, discussion regarding patients management with involved consultants, primary physician, pharmacists, and other healthcare personnel (dietary, case management , physical/occupational therapy etc.) Critical Care Time: 50
[2019-10-25] MEDS: Dexmedetomidine* 1,000 MCG in NS 0.9% 250 ML* 240 ML IV SCH ×2 (12:22→17:59)
[2019-10-25] MEDS: Metoprolol Tartrate IV* 1 MG/ML 5 ML VIAL IV SCH ×2 (12:38→17:53)
[2019-10-25] MEDS: cefTRIAXone(*) 1 GM in NS 0.9% 50 ML* 50 ML IVPB SCH (13:53)
[2019-10-25] MEDS ORDERED: Lorazepam PYXIS KEY PRN (16:16)
[2019-10-25] MEDS ORDERED: LORazepam INJ* 2 MG/ML 1 ML VIAL IV PUSH ONE (16:16)
[2019-10-26] MEDS: MICONAZOLE NITRATE 2% TOPICAL SCH ×3 (00:28→20:50)
[2019-10-26] MEDS: Enoxaparin(*) 100 MG/ML SYR SUBCUT SCH ×3 (00:31→23:32)
[2019-10-26] MEDS: Metoprolol Tartrate IV* 1 MG/ML 5 ML VIAL IV SCH ×4 (00:32→16:51)
[2019-10-26] MEDS: Insulin LISPRO* 1 UNITS UNIT SUBCUT SCH ×6 (01:09→20:54)
[2019-10-26 04:39] LABS: Hematocrit 35 % (42-52); Mean Corpuscular HGB Conc 31 g/dL (31-36); Mean Corpuscular Hemoglobin 25 pg (27-31); Mean Corpuscular Volume 81 fL (80-94); Mean Platelet Volume 8.9 fL (7.4-10.4); Platelet Count 130 10^3/uL (150-450); Red Blood Count 4.38 10^6 /uL (4.18-5.48); Red Cell Distribution Width 19 % (10-15)
[2019-10-26 04:55] LABS: Albumin 3.1 g/dL (3.2-5.2); Albumin/Globulin Ratio 1.5 (1-3); BUN/Creatinine Ratio 33.2 (8-20); Calcium 8.4 mg/dL (8.6-10.3); EGFR African American 41.9 (>60); EGFR Non-African American 34.6 (>60); Globulin 2.1 g/dL (2-4); Magnesium 2.2 mg/dL (1.9-2.7); Phosphorus 5.2 mg/dL (2.5-5.0); Total Bilirubin 1.2 mg/dL (0.2-1.0); Total Protein 5.2 g/dL (6.4-8.9)
[2019-10-26 05:03] LABS: Potassium 5.3 mmol/L (3.5-5.0)
[2019-10-26] MEDS: Pantoprazole IV* 40 MG IV SCH (08:17)
[2019-10-26] MEDS: Mometasone/Formoter 200/5 MDI INH SCH ×2 (10:59→19:14)
[2019-10-26] MEDS: Tiotropium Brom/Olodaterol MDI INH SCH (10:59)
[2019-10-26] MEDS: Haloperidol INJ IV/IM* 5 MG/ML AMP IV SLOW PU PRN ×2 (11:30→20:19)
[2019-10-26] MEDS: Dexmedetomidine* 1,000 MCG in NS 0.9% 250 ML* 240 ML IV SCH (11:44)
[2019-10-26] MEDS: Nicotine PATCH 14 MG/24 HR* PATCH TRANSDERM SCH (12:47)
[2019-10-26] MEDS: Morphine INJ* 2 MG/ML 1 ML SYRINGE (TWO MG - NEW SYRINGE VERSION) IV PRN ×3 (13:27→23:32)
[2019-10-26] MEDS: cefTRIAXone(*) 1 GM in NS 0.9% 50 ML* 50 ML IVPB SCH (13:34)
--- NOTE | 2019-10-26 15:15 | PN ---
<Tyler Molina - Last Filed: 10/26/19 15:09> Date of Service: 10/26/19 Critical Care Services: 69 yo M with CAD, Afib, PTSD, COPD and CHF presents to the ED on 10/16 with respiratory distress. Per patient he had 2 days of shortness of breath, worsening. Minimal relief from inhaler. [facility]19 for CHF exacerbation. 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 On evaluation in the ED his vital signs were stable. Pulse ox 92%. Physical exam notable for mild distress. HR irregularly irregular. mild bilateral wheezing with increased work of breathing and bibasilar crackles noted. WBC 6.9. Cr 1.56. CXR consistent with CHF. EKG with atrial fibrillation, rate 80. unchanged from EKG done 09/22/2019. While in ED, pt had worsening dyspnea and sats dipped to 80s on 3L of O2 (home rate 3.5-4L). Duonebs started, O2 increased and admitted. 10/17: Agitated and refusing BiPAP at night. Per family patient has PTSD and has difficulty tolerating BiPAP at home - they usually have him take his ativan and then once he is sleeping applies BiPAP. Requiring 10L via mask. Lasix for diuresis, dose decreased given rise in creatinine. 10/18: Remains lethargic. ABG with respiratory acidosis; started on BiPAP with subsequent improvement in mental status. 10/19: lethargic again in AM. tolerated biPAP intermittently overnight. Lasix discontinued given rise in BUN & creatinine. 10/20: Lethargic, nonverbal but following commands. Given Valium overnight to allow for pt to tolerate BiPAP. ICU consulted. Noted to have prolonged QTC and psycotropic medications discontinued. Tried on highflow to see if he would be less anxious. Lasix x 1. TTE done with slight worsening of EF as compared to prior. Cardiology consulted. 10/21: Unchanged. on vapotherm. Creatinine continues to rise, further diuresis held. Anxious throughout day. restarted on home Ativan as this should not affect QTc and Gabapentin to prevent withdrawal (also should not affect QTc). 10/22: Weaned down to fiO2 @ 10 L. Off vapotherm since 10/21. Intermittently refusing to participate in exam; likely secondary to chronic psychiatric diagnoses, but also working well with PT and tolerating diet. 10/23: More alert. Continuing to require O2@10LPM. Had two episodes of brief sinus pause (2sec). Digoxin held. 10/24: Became more confused and delirious in the afternoon. No improvement with home Ativan dose. No improvement with either Haldol or Geodon. Started on Precedex. At same time of confusion also become hypoxic to low 80s. CO2 levels at baseline. Started on vapotherm. 10/25: Overnight had brief runs of what appeared to be a ventricular tachycardia. Digoxin restarted. Lasix x 1 given. Cardiology asked to reconsult. 10/26: Overnight had 2 sec of pauses,asymptomatic. COgnitive on and off. Vital Signs: Temp Pulse Resp BP SpO2 FiO2 97.7 F 91 20 119/70 95 100 10/26/19 11:30 10/26/19 15:01 10/26/19 15:01 10/26/19 15:10/26/19 15:10/26 12:00 Physical Exam: Gen: Resting on a bed with no acute distress. HEENT: Normocephalic and atraumatic; canula on place Lungs: crackles heard Cardiac: rate normal; rhythm irregular Abdomen: soft, nondistended and nontender. Extremities: Pigmentation of BLE with dressing wound on plantar aspect of left foot. No swelling noted Neuro: delirious; on and off Fluid Balance (Past 24 Hours): I= O= Net Intake & Output 10/24/19 10/25/19 10/26/19 10/27/19 06:59 06:59 06:59 06:59 Intake Total 800 968 303.7 Output Total 4298 1253 1765 370 Balance -1238 -285 -1461.3 -370 Weight 93.531 kg 97.4 kg 94.9 kg Intake: IVPB 66 ABX - CEFTRIAXONE 50 NS 16 Medicated IV 128 77.7 Precedex 128 77.7 Oral 800 840 160 Output: Urine 700 Gaviria 1338 1253 1765 370 Other: Estimated Stool Amount Small Labs: Laboratory Results - last 24 hr 10/25/19 10/25/19 10/26/19 15:31 19:50 00:26 WBC RBC Hgb Hct MCV MCH MCHC RDW Plt Count MPV Sodium Potassium Chloride Carbon Dioxide Anion Gap BUN Creatinine Est GFR ( Amer) Est GFR (Non-Af Amer) BUN/Creatinine Ratio Glucose POC Glucose (mg/dL) 193 H 148 H 159 H Calcium Phosphorus Magnesium Total Bilirubin AST ALT Alkaline Phosphatase B-Natriuretic Peptide Total Protein Albumin Globulin Albumin/Globulin Ratio 10/26/19 10/26/19 10/26/19 04:30 04:30 04:30 WBC 10.0 RBC 4.38 Hgb 11.0 L Hct 35 L MCV 81 MCH 25 L MCHC 31 RDW 19 H Plt Count 130 L MPV 8.9 Sodium 144 Potassium 5.3 H Chloride 109 Carbon Dioxide 28 Anion Gap 7 BUN 64 H Creatinine 1.93 H Est GFR ( Amer) 41.9 Est GFR (Non-Af Amer) 34.6 BUN/Creatinine Ratio 33.2 H Glucose 170 H POC Glucose (mg/dL) Calcium 8.4 L Phosphorus 5.2 H Magnesium 2.2 Total Bilirubin 1.20 H AST 92 H ALT 171 H Alkaline Phosphatase 158 H B-Natriuretic Peptide > 1300 H Total Protein 5.2 L Albumin 3.1 L Globulin 2.1 Albumin/Globulin Ratio 1.5 10/26/19 10/26/19 08:45 12:47 WBC RBC Hgb Hct MCV MCH MCHC RDW Plt Count MPV Sodium Potassium Chloride Carbon Dioxide Anion Gap BUN Creatinine Est GFR ( Amer) Est GFR (Non-Af Amer) BUN/Creatinine Ratio Glucose POC Glucose (mg/dL) 183 H 194 H Calcium Phosphorus Magnesium Total Bilirubin AST ALT Alkaline Phosphatase B-Natriuretic Peptide Total Protein Albumin Globulin Albumin/Globulin Ratio Studies: 10/26 CT chest: Cardiomegagly with pulmonary interstitial edema. Bilateral pleural effusion. Patchy airspace disease of right middle lobe with dependent atelectasis of bilateral lungs 10/25 CXR - cardiomegaly with intesistial edema and pleural effusions 10/22 CXR - pulmonary intersitital edema, small left pleural effusion. bibasilar atelectasis vs consolidation 10/20 CXR - consistent with CHF 10/20 TTE LVEF 35-40% akinesis of apicalinferior myocardium, hypokinesis fo basal midinferior myocardium. severe dilation of left atrium, moderate dilation of right atrium. mild to moderate regurgitation of mitral valve mild to moderate regurgitation of aortic valve moderate pulmonary artery hypertension 10/19 CXR - right upper lobe airspace disease, interstitial edema Nutrition: Per swallow evaluation- pending Impression: 69 yo M with CHF and COPD admitted on 10/16 with respiratory distress after recent hospitalization at [facility] for CHF exacerbation. Found to have pulmonary edema. Efforts at diuresis limited by rising creatinine secondary to cardiorenal syndrome. Respiratory function had been improving despite continued presence of pulmonary edema and pleural effusion on CXR. Renal function improved after lasix held for several days. Digoxin held x 2 days for sinus pauses. On 10/24 developed increased confusion and hypoxia. Started on Precedex for confusion and vapotherm. DIg given yesterday had sinus pauses overnight. Lasix restarted; increased to 80 mg IV daily Plan: Hospital Diagnoses: #1: Acute on chronic systolic CHF #2: Acute hypoxic respiratory failure #3: Acute encephalopathy, delirium #4: Cardiorenal syndrome Cardiovascular: (1) Acute on chronic systolic CHF; (2) Afib with RVR, now rate controlled; (3) prolonged QTc; (4) Essential HTN: (5) PVD; (6) CAD with angina and prior HI; (7) hx of hypertrophic cardiomyopathy with cardiomegaly; (8) hx of carotid stenosis; (9) Hyperlipidemia; (10) elevated troponin; (11) hx of aneurysm; (12) chronic Essential HTN -- HR 46-98 -- SBP 97-135; goal MAP is 75 -- Telemetry -- TTE, 10/20: LVEF 35-40% akinesis of apicalinferior myocardium, hypokinesis fo basal midinferior myocardium. severe dilation of left atrium, moderate dilation of right atrium. 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, even while having heart failure patient never had LE swelling and is always thirsty and usually requires high dose of lasix; usually would require>100; at home he is taking lasix 120 mg in morning and 80 in the evening -- will start him on lasix; if his bp drops then we can give him pressure support with levophed; PICC line placed if requires levophed Home meds: Lasix, Atorvastatin, plavix, amlodipine, digoxin, metoprolol, eliquis Pulmonary: (1) Acute on chronic hypoxic respiratory failure, improving; (2) Pulmonary edema, cardiac cause, stable; (3) Obstructive sleep apnea; (4) COPD; ( 5) chronic asthma; (6) hx of seasonal allergies -- RR 14-27 -- sats 83-100 on vaoptherm -- CXR, 10/25: cardiomegaly with intesistial edema and pleural effusions --CT chest as above -- ABG(10/25): pH 7.42, pCO2 41, pO2 108, HCO3 26.4, BE 1.9, O2 sat 99.2 -- PRN Duonebs -- Tiotropium bromide/olodaterol & Mometasone --Continue lasix -- high suspicion of aspiration given his mental status; will ask speech therapy to reevaluate him; till then NPO -- pulmonary toilet Home meds: albuterol, tiotropium bromide/olodaterol, mometasone, home O2 3.5 to 4L NC Gastrointestinal: (1) elevated LFTs secondary to pulmonary congestion, improved ; (2) hx of irritable bowel syndrome; (3) GERD -- LFTs, follow trend Tbili 1.2 from 1.1 ALK 158 from 134 AST 92 from 123 ALT 171 from 195 -- diet: NPO until mental status improved -- bowel regimen: None -- ulcer prophylaxis: Protonix -- PRN zofran Home meds: Magox, simethicone, protonix, immodium Endocrine: (1) Diabetes mellitus type 2 -- monitor BGs -- SSI -- Prednisone tapered off Home meds: Metformin, Lantus Renal: (1) Acute on chronic stage 3 renal failure, improving; (2) Cardiorenal syndrome; (3) Hyperkalemia; (4) BPH -- UOP: 50 ml/hr, up 10 lbs from admission weight -- Cr 1.93 from 1.5 -- Lytes Na 144 from 141 K 5.3, on lasix Ca 8.4, on replacement Mag 2.2 Phos 5.2 -- IVF: KVO -- Currently on lasix; need to monitor BMP closely --will put him on pressure support if BP falls; for adequate perfusion Home meds: Lasix, potassium chloride, flomax Infectious disease: No acute issues -- Tmax 100.8 -- WBC 10 from 10.4 -- Micro 10/25 UA equivocal 10/19 UA negative Flu A&B negative -- ABX Keflex x 6 wks for 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) Home meds: Keflex Neurologic: (1) Acute encephalopathy/delirium (2) Chronic pain; (3) Anxiety and depression; (4) hx of PTSD; (5) hx of CVA and TIA; (6) peripheral neuropathy ; (7) hx of substance abuse -- Trileptal -- Precedex gtt for delirium Home meds: gabapentin, buspirone, zoloft, ativan, norco, trileptal Hematological: (1) chronic anemia -- Hgb 10.3 from 11.7 -- Plt 130 from 124 -- DVT prophylaxis: therapeutic lovenox -- Plavix Home meds: plavix, cholecalciferol, eliquis Metabolic: No acute issues Home meds: None Other: No acute issues Home meds: None Deep vein thrombosis prophylaxis: on therapeutic lovenox Dietary: Protonix Condition: serious Prognosis: guarded Code status: full Disposition:continue ICU Care updated at bedside regarding interval events and plan of care Cumulative time spent in the care of this patient (excluding any procedure time) : at least 50 minutes. Patient care included clinical interview (with patient and/or family), bedside exam of the patient, review of labs, x-rays, and other ancillary data, coordination of (respiratory, nursing care, review of patient's records, discussion regarding patients management with involved consultants, primary physician, pharmacists, and other healthcare personnel (dietary, case management , physical/occupational therapy etc.) Critical Care Time: 50 <Ron Quiles - Last Filed: 10/27/19 06:29> Vital Signs: Temp Pulse Resp BP SpO2 FiO2 35.7 C 58 10 115/48 100 100 10/27/19 06:00 10/27/19 06:00 10/27/19 06:00 10/27/19 06:00 10/27/19 06:00 10/27 03:19 Physical Exam: Gen: HEENT: Lungs: Cardiac: Abdomen: Extremities: Neuro: Fluid Balance (Past 24 Hours): I= O= Net Intake & Output 10/24/19 10/25/19 10/26/19 10/27/19 06:59 06:59 06:59 06:59 Intake Total 800 968 303.7 1174 Output Total 2038 1253 1765 3025 Balance -1238 -285 -1461.3 -1851 Weight 93.531 kg 97.4 kg 94.9 kg 94.3 kg Intake: IV Fluids 30 NS 30 IVPB 66 57 ABX - CEFTRIAXONE 50 57 NS 16 Medicated IV 128 77.7 167 Precedex 128 77.7 167 Oral 800 840 160 920 Output: Urine 700 Gaviria 1338 1253 1765 3025 Other: Estimated Stool Amount Small Labs: Laboratory Results - last 24 hr 10/26/19 10/26/19 10/26/19 08:45 12:47 16:36 WBC RBC Hgb Hct MCV MCH MCHC RDW Plt Count MPV POC Glucose (mg/dL) 183 H 194 H 223 H Magnesium 10/26/19 10/26/19 10/27/19 20:48 23:42 04:55 WBC 8.1 RBC 4.08 L Hgb 10.1 L Hct 33 L MCV 81 MCH 25 L MCHC 31 RDW 19 H Plt Count 113 L MPV 9.3 POC Glucose (mg/dL) 238 H 221 H Magnesium 10/27/19 04:55 WBC RBC Hgb Hct MCV MCH MCHC RDW Plt Count MPV POC Glucose (mg/dL) Magnesium 2.2 Plan: Acute hypoxic respiratory failure secondary to decompensated biventricular failure. CT Chest does not reveal underlying significant infiltrates. I have reviewed the case with the patient's primary box blank machine operator in [place] who relates that this is the normal presentation for this patient when he decompensates and that he does not show peripheral edema. We will attempt diuresis, historically doses of 100mg of lasix have been required. Pt seen and examined with housestaff on 10/26/2018 and concur with the A&P above. D/W pt's in detail in multiple encounters. critical care time 50 minutes
[2019-10-26] MEDS: Furosemide IV* 10 MG/ML 10 ML VIAL (100 MG) IV SCH (16:24)
[2019-10-26] MEDS: Clopidogrel TAB* 75 MG PO SCH ×2 (16:32→17:49)
[2019-10-26] MEDS: OXcarbazepine TAB(*) 300 MG PO SCH ×2 (16:32→20:18)
[2019-10-26] MEDS: Docusate CAP* 100 MG PO PRN (17:49)
[2019-10-26] MEDS ORDERED: Norepinephrine 16MCG/ML IVPRE* 4,000 MCG/250 ML BAG IV SCH ×2 (18:00→18:11)
[2019-10-26] MEDS: Nicotine Patch Removal NOTE FOLLOW UP SCH (20:49)
[2019-10-27] MEDS: Insulin LISPRO* 1 UNITS UNIT SUBCUT SCH ×7 (00:38→23:54)
[2019-10-27] MEDS: Metoprolol Tartrate IV* 1 MG/ML 5 ML VIAL IV SCH ×5 (00:39→23:41)
[2019-10-27] MEDS: Dexmedetomidine* 1,000 MCG in NS 0.9% 250 ML* 240 ML IV SCH ×2 (00:46→07:44)
[2019-10-27 05:05] LABS: Hematocrit 33 % (42-52); Hemoglobin 10.1 g/dL (14.0-18.0); Mean Corpuscular HGB Conc 31 g/dL (31-36); Mean Corpuscular Hemoglobin 25 pg (27-31); Mean Corpuscular Volume 81 fL (80-94); Mean Platelet Volume 9.3 fL (7.4-10.4); Platelet Count 113 10^3/uL (150-450); Red Blood Count 4.08 10^6 /uL (4.18-5.48); Red Cell Distribution Width 19 % (10-15); White Blood Count 8.1 10^3/uL (3.5-10.8)
[2019-10-27 05:22] LABS: Magnesium 2.2 mg/dL (1.9-2.7)
[2019-10-27 06:39] LABS: BUN/Creatinine Ratio 33.5 (8-20); Calcium 8.1 mg/dL (8.6-10.3); EGFR African American 44.8 (>60); Potassium 4.6 mmol/L (3.5-5.0)
[2019-10-27] MEDS: Mometasone/Formoter 200/5 MDI INH SCH ×2 (07:45→19:00)
[2019-10-27] MEDS: Tiotropium Brom/Olodaterol MDI INH SCH (07:45)
[2019-10-27] MEDS: Furosemide IV* 10 MG/ML 10 ML VIAL (100 MG) IV SCH ×2 (08:52→20:20)
[2019-10-27] MEDS: Clopidogrel TAB* 75 MG PO SCH (08:52)
[2019-10-27] MEDS: Nicotine PATCH 14 MG/24 HR* PATCH TRANSDERM SCH (08:53)
[2019-10-27] MEDS: OXcarbazepine TAB(*) 300 MG PO SCH ×2 (08:53→20:21)
[2019-10-27] MEDS: MICONAZOLE NITRATE 2% TOPICAL SCH ×2 (08:53→20:21)
[2019-10-27] MEDS: Pantoprazole IV* 40 MG IV SCH (08:53)
[2019-10-27] MEDS: Morphine INJ* 2 MG/ML 1 ML SYRINGE (TWO MG - NEW SYRINGE VERSION) IV PRN (10:27)
[2019-10-27] MEDS ORDERED: Lorazepam PYXIS KEY PRN (10:46)
[2019-10-27] MEDS ORDERED: LORazepam INJ* 2 MG/ML 1 ML VIAL IV PUSH ONE (10:46)
[2019-10-27] MEDS ORDERED: Lorazepam PYXIS KEY ONE (10:47)
[2019-10-27] MEDS ORDERED: LORazepam INJ* 2 MG/ML 1 ML VIAL ONE (10:47)
--- NOTE | 2019-10-27 11:03 | PN ---
<Tyler Molina - Last Filed: 10/27/19 10:56> Date of Service: 10/27/19 Critical Care Services: 69 yo M with CAD, Afib, PTSD, COPD and CHF presents to the ED on 10/16 with respiratory distress. Per patient he had 2 days of shortness of breath, worsening. Minimal relief from inhaler. [facility] for CHF exacerbation. 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 On evaluation in the ED his vital signs were stable. Pulse ox 92%. Physical exam notable for mild distress. HR irregularly irregular. mild bilateral wheezing with increased work of breathing and bibasilar crackles noted. WBC 6.9. Cr 1.56. CXR consistent with CHF. EKG with atrial fibrillation, rate 80. unchanged from EKG done 09/22/2019. While in ED, pt had worsening dyspnea and sats dipped to 80s on 3L of O2 (home rate 3.5-4L). Duonebs started, O2 increased and admitted. 10/17: Agitated and refusing BiPAP at night. Per family patient has PTSD and has difficulty tolerating BiPAP at home - they usually have him take his ativan and then once he is sleeping applies BiPAP. Requiring 10L via mask. Lasix for diuresis, dose decreased given rise in creatinine. 10/18: Remains lethargic. ABG with respiratory acidosis; started on BiPAP with subsequent improvement in mental status. 10/19: lethargic again in AM. tolerated biPAP intermittently overnight. Lasix discontinued given rise in BUN & creatinine. 10/20: Lethargic, nonverbal but following commands. Given Valium overnight to allow for pt to tolerate BiPAP. ICU consulted. Noted to have prolonged QTC and psycotropic medications discontinued. Tried on highflow to see if he would be less anxious. Lasix x 1. TTE done with slight worsening of EF as compared to prior. Cardiology consulted. 10/21: Unchanged. on vapotherm. Creatinine continues to rise, further diuresis held. Anxious throughout day. restarted on home Ativan as this should not affect QTc and Gabapentin to prevent withdrawal (also should not affect QTc). 10/22: Weaned down to fiO2 @ 10 L. Off vapotherm since 10/21. Intermittently refusing to participate in exam; likely secondary to chronic psychiatric diagnoses, but also working well with PT and tolerating diet. 10/23: More alert. Continuing to require O2@10LPM. Had two episodes of brief sinus pause (2sec). Digoxin held. 10/24: Became more confused and delirious in the afternoon. No improvement with home Ativan dose. No improvement with either Haldol or Geodon. Started on Precedex. At same time of confusion also become hypoxic to low 80s. CO2 levels at baseline. Started on vapotherm. 10/25: Overnight had brief runs of what appeared to be a ventricular tachycardia. Digoxin restarted. Lasix x 1 given. Cardiology asked to reconsult. 10/26: Overnight had 2 sec of pauses,asymptomatic. COgnitive on and off. 10/27: Overnight asked for Bipap and used it. COgnitive on and off. D/c precedex today. started PO meds-neurontin, zoloft, buspar, ativan. stopped haloperidol. QTc prolonged; will keep eye on it. Good response with IV lasix; increased to 80 mg IV; creatinine 1.8 from 1.9 Vital Signs: Temp Pulse Resp BP SpO2 FiO2 96.1 F 70 24 125/66 92 100 10/27/19 10:31 10/27/19 10:31 10/27/19 10:50 10/27/19 10:31 10/27/19 10:31 10/27 03:19 Physical Exam: Gen:Resting on a bed seems restless HEENT: Intact Lungs: crackles bilateral Cardiac: rate normal; rythm irregular Abdomen: soft, nondistended and nontender Extremities: Pigmentation of BLE with dressing wound on plantar aspect of left foot. No swelling noted Neuro: follows command; sleepy on and off Fluid Balance (Past 24 Hours): I= O= Net Intake & Output 10/25/19 10/26/19 10/27/19 10/28/19 06:59 06:59 06:59 06:59 Intake Total 968 303.7 1174 482 Output Total 1253 1765 3025 440 Balance -285 -1461.3 -1851 42 Weight 97.4 kg 94.9 kg 94.3 kg Intake: IV Fluids 30 NS 30 IVPB 66 57 ABX - CEFTRIAXONE 50 57 NS 16 Medicated IV 128 77.7 167 Precedex 128 77.7 167 Oral 840 160 920 482 Output: Gaviria 1253 1765 3025 440 Labs: Laboratory Results - last 24 hr 10/26/19 10/26/19 10/26/19 12:47 16:36 20:48 WBC RBC Hgb Hct MCV MCH MCHC RDW Plt Count MPV Sodium Potassium Chloride Carbon Dioxide Anion Gap BUN Creatinine Est GFR ( Amer) Est GFR (Non-Af Amer) BUN/Creatinine Ratio Glucose POC Glucose (mg/dL) 194 H 223 H 238 H Calcium Magnesium 10/26/19 10/27/19 10/27/19 23:42 04:55 04:55 WBC 8.1 RBC 4.08 L Hgb 10.1 L Hct 33 L MCV 81 MCH 25 L MCHC 31 RDW 19 H Plt Count 113 L MPV 9.3 Sodium 147 H Potassium 4.6 Chloride 110 Carbon Dioxide 31 Anion Gap 6 BUN 61 H Creatinine 1.82 H Est GFR ( Amer) 44.8 Est GFR (Non-Af Amer) 37.0 BUN/Creatinine Ratio 33.5 H Glucose 108 H POC Glucose (mg/dL) 221 H Calcium 8.1 L Magnesium 2.2 10/27/19 08:25 WBC RBC Hgb Hct MCV MCH MCHC RDW Plt Count MPV Sodium Potassium Chloride Carbon Dioxide Anion Gap BUN Creatinine Est GFR ( Amer) Est GFR (Non-Af Amer) BUN/Creatinine Ratio Glucose POC Glucose (mg/dL) 81 Calcium Magnesium Studies: 10/26 CXR: Cardiomegaly with pulmonary edema 10/26 CT chest: Cardiomegagly with pulmonary interstitial edema. Bilateral pleural effusion. Patchy airspace disease of right middle lobe with dependent atelectasis of bilateral lungs 10/25 CXR - cardiomegaly with intesistial edema and pleural effusions 10/22 CXR - pulmonary intersitital edema, small left pleural effusion. bibasilar atelectasis vs consolidation 10/20 CXR - consistent with CHF 10/20 TTE LVEF 35-40% akinesis of apicalinferior myocardium, hypokinesis fo basal midinferior myocardium. severe dilation of left atrium, moderate dilation of right atrium. mild to moderate regurgitation of mitral valve mild to moderate regurgitation of aortic valve moderate pulmonary artery hypertension 10/19 CXR - right upper lobe airspace disease, interstitial edema Nutrition: Pureed, nectar thickened Impression: 69 yo M with CHF and COPD admitted on 10/16 with respiratory distress after recent hospitalization at [facility] for CHF exacerbation. Found to have pulmonary edema. Efforts at diuresis limited by rising creatinine secondary to cardiorenal syndrome. Respiratory function had been improving despite continued presence of pulmonary edema and pleural effusion on CXR. Renal function improved after lasix held for several days. Digoxin held x 2 days for sinus pauses. On 10/24 developed increased confusion and hypoxia. Started on Precedex for confusion and vapotherm. DIg given 10/25 had sinus pauses overnight. lasix increased to 80 mg IV 12H on 10/27; d/c precedex on 10/27; started po meds Plan: Hospital Diagnoses: #1: Acute on chronic systolic CHF #2: Acute hypoxic respiratory failure #3: Acute encephalopathy, delirium #4: Cardiorenal syndrome Cardiovascular: (1) Acute on chronic systolic CHF; (2) Afib with RVR, now rate controlled; (3) prolonged QTc; (4) Essential HTN: (5) PVD; (6) CAD with angina and prior [place]; (7) hx of hypertrophic cardiomyopathy with cardiomegaly; (8) hx of carotid stenosis; (9) Hyperlipidemia; (10) elevated troponin; (11) hx of aneurysm; (12) chronic Essential HTN -- HR 48-71 -- SBP 98-131; goal MAP is 75 -- Telemetry -- TTE, 10/20: LVEF 35-40% akinesis of apicalinferior myocardium, hypokinesis fo basal midinferior myocardium. severe dilation of left atrium, moderate dilation of right atrium. mild to moderate regurgitation of mitral valve mild to moderate regurgitation of aortic valve moderate pulmonary artery hypertension -- lasix increased to 80 mg IV BID --Talked to his primary installer soft top, even while having heart failure patient never had LE swelling and is always thirsty and usually requires high dose of lasix; usually would require>100; at home he is taking lasix 120 mg in morning and 80 in the evening -- on levophed; MAP goal 75 Home meds: Lasix, Atorvastatin, plavix, amlodipine, digoxin, metoprolol, eliquis Pulmonary: (1) Acute on chronic hypoxic respiratory failure, improving; (2) Pulmonary edema, cardiac cause, stable; (3) Obstructive sleep apnea; (4) COPD; ( 5) chronic asthma; (6) hx of seasonal allergies -- RR 6-23 -- sats 85-100: alternating on vapotherm and Bipap -- CXR, 10/26: cardiomegaly with intesistial edema --CT chest as above -- ABG(10/25): pH 7.42, pCO2 41, pO2 108, HCO3 26.4, BE 1.9, O2 sat 99.2 -- PRN Duonebs -- Tiotropium bromide/olodaterol & Mometasone --Continue lasix 80 mg IV BID -- pulmonary toilet --speech therapy- pureed, nectar; low suspicion of aspiration Home meds: albuterol, tiotropium bromide/olodaterol, mometasone, home O2 3.5 to 4L [place] Gastrointestinal: (1) elevated LFTs secondary to pulmonary congestion, improved ; (2) hx of irritable bowel syndrome; (3) GERD -- LFTs, follow trend 10/26 Tbili 1.2 from 1.1 ALK 158 from 134 AST 92 from 123 ALT 171 from 195 -- diet: pureed, nectar thickened -- bowel regimen: None -- ulcer prophylaxis: Protonix -- PRN zofran Home meds: Magox, simethicone, protonix, immodium Endocrine: (1) Diabetes mellitus type 2 -- monitor BGs -- SSI -- Prednisone tapered off Home meds: Metformin, Lantus Renal: (1) Acute on chronic stage 3 renal failure, improving; (2) Cardiorenal syndrome; (3) Hyperkalemia; (4) BPH -- UOP: 50 ml/hr, up 10 lbs from admission weight -- Cr 1.8 from 1.93 -- Lytes Na 147 from 144 K 4.6, on lasix Ca 8.1, on replacement Mag 2.2 Phos 5.2 10/26 -- IVF: KVO -- Currently on lasix; need to monitor BMP closely ---on levofed --pending uric acid Home meds: Lasix, potassium chloride, flomax Infectious disease: No acute issues -- Tmax 98.1 -- WBC 8.1 from 10 -- Micro 10/25 UA equivocal 10/19 UA negative Flu A&B negative -- ABX Keflex x 6 wks for olecranon bursitis (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 [employer]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 [employer]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 [employer]) Home meds: Keflex Neurologic: (1) Acute encephalopathy/delirium (2) Chronic pain; (3) Anxiety and depression; (4) hx of PTSD; (5) hx of CVA and TIA; (6) peripheral neuropathy ; (7) hx of substance abuse -- Trileptal -- Precedex gtt for delirium-d/c on 10/27 Home meds: gabapentin, buspirone, zoloft, ativan, norco, trileptal Hematological: (1) chronic anemia -- Hgb 10.1 from 10.3 -- Plt 113 from 130 -- DVT prophylaxis: therapeutic lovenox -- Plavix Home meds: plavix, cholecalciferol, eliquis Metabolic: No acute issues Home meds: None Other: No acute issues Home meds: None Deep vein thrombosis prophylaxis: on therapeutic lovenox Dietary: Protonix Condition: serious Prognosis: guarded Code status: full Disposition:continue ICU Care updated at bedside regarding interval events and plan of care Cumulative time spent in the care of this patient (excluding any procedure time) : at least 50 minutes. Patient care included clinical interview (with patient and/or family), bedside exam of the patient, review of labs, x-rays, and other ancillary data, coordination of (respiratory, nursing care, review of patient's records, discussion regarding patients management with involved consultants, primary physician, pharmacists, and other healthcare personnel (dietary, case management , physical/occupational therapy etc.) Critical Care Time: 50 <Ron Quiles - Last Filed: 10/27/19 11:33> Vital Signs: Temp Pulse Resp BP SpO2 FiO2 35.6 C 70 24 125/66 92 100 10/27/19 10:31 10/27/19 10:31 10/27/19 10:50 10/27/19 10:31 10/27/19 10:31 10/27 03:19 Physical Exam: Gen: HEENT: Lungs: Cardiac: Abdomen: Extremities: Neuro: Fluid Balance (Past 24 Hours): I= O= Net Intake & Output 10/25/19 10/26/19 10/27/19 10/28/19 06:59 06:59 06:59 06:59 Intake Total 968 303.7 1174 482 Output Total 1253 1765 3025 440 Balance -285 -1461.3 -1851 42 Weight 97.4 kg 94.9 kg 94.3 kg Intake: IV Fluids 30 NS 30 IVPB 66 57 ABX - CEFTRIAXONE 50 57 NS 16 Medicated IV 128 77.7 167 Precedex 128 77.7 167 Oral 840 160 920 482 Output: Gaviria 1253 1765 3025 440 Labs: Laboratory Results - last 24 hr 10/26/19 10/26/19 10/26/19 12:47 16:36 20:48 WBC RBC Hgb Hct MCV MCH MCHC RDW Plt Count MPV Sodium Potassium Chloride Carbon Dioxide Anion Gap BUN Creatinine Est GFR ( Amer) Est GFR (Non-Af Amer) BUN/Creatinine Ratio Glucose POC Glucose (mg/dL) 194 H 223 H 238 H Calcium Magnesium 10/26/19 10/27/19 10/27/19 23:42 04:55 04:55 WBC 8.1 RBC 4.08 L Hgb 10.1 L Hct 33 L MCV 81 MCH 25 L MCHC 31 RDW 19 H Plt Count 113 L MPV 9.3 Sodium 147 H Potassium 4.6 Chloride 110 Carbon Dioxide 31 Anion Gap 6 BUN 61 H Creatinine 1.82 H Est GFR ( Amer) 44.8 Est GFR (Non-Af Amer) 37.0 BUN/Creatinine Ratio 33.5 H Glucose 108 H POC Glucose (mg/dL) 221 H Calcium 8.1 L Magnesium 2.2 10/27/19 08:25 WBC RBC Hgb Hct MCV MCH MCHC RDW Plt Count MPV Sodium Potassium Chloride Carbon Dioxide Anion Gap BUN Creatinine Est GFR ( Amer) Est GFR (Non-Af Amer) BUN/Creatinine Ratio Glucose POC Glucose (mg/dL) 81 Calcium Magnesium Plan: Improving acute hypoxic respiratory failure secondary to decompensated biventricular systolic heart failure. Negative balance 2 liters ( the most for any 24H period this admission) and Cr is actually down. On and off low dose inotropic support. Lots of pain...check uric acid. Continue lasix. D/W in detail. This service has been performed in part by a resident under the direction of a teaching physician. I, Ron Quiles, performed the service, or was physically present during the critical, or raymundo portions of the service, furnished by the resident. I participated in the management of the patient. Critical Care Time: 50 minutes
[2019-10-27] MEDS: Sertraline* 100 MG TAB PO SCH (11:39)
[2019-10-27] MEDS: Enoxaparin(*) 100 MG/ML SYR SUBCUT SCH ×2 (11:39→23:56)
[2019-10-27] MEDS: cefTRIAXone(*) 1 GM in NS 0.9% 50 ML* 50 ML IVPB SCH (12:45)
[2019-10-27] MEDS: busPIRone TAB* 10 MG PO SCH ×2 (13:27→20:21)
[2019-10-27] MEDS: Atorvastatin* 20 MG TAB PO SCH (17:05)
[2019-10-27] MEDS: Gabapentin CAP(*) 300 MG PO SCH (17:05)
--- NOTE | 2019-10-27 18:18 | CONSULT ---
Subjective Date of Service: 10/27/19 Interval History: Mr. Berrios is a 69 yo male with PMH significant for COPD with chronic hypoxic respiratory failure, JOSIAH with BiPAP, heart failure, CAD, CKD, HLD, GERD, IBS, A fib, and DM2; who presented to the emergency room with complaints of shortness of breath. He was admitted to the hospital for acute on chronic hypoxic respiratory failure and acute CHF exacerbation. He presented to the hospital with a known ulcer to the left foot. This ulcer has been present for about a year and is slowly healing per his at bedside. He follows with the [facility] for this wound. He also was noted to have erythema to the left elbow. He has a history of olecranon bursitis in this arm and is often leaning on the area and irritating the elbow per his . They are waiting for a protective device for the arm to prevent further irritation. Patient seen and examined at bedside. Verbal consent for a wound consult and photographs. Family History: Unchanged from Admission Social History: Unchanged from Admission Past Medical History: Unchanged from Admission Review of Systems - Measurements Intake and Output: Intake and Output Last 24 Hours 10/25/19 10/26/19 10/27/19 10/28/19 06:59 06:59 06:59 06:59 Intake Total 968 303.7 1174 752 Output Total 1253 1765 3025 1415 Balance -285 -1461.3 -1851 -663 Weight 214 lb 11.684 oz 209 lb 3.499 oz 207 lb 14.334 oz Intake: IV Fluids 30 30 ABX - CEFTRIAXONE 30 NS 30 IVPB 66 57 60 ABX - CEFTRIAXONE 50 57 60 NS 16 Medicated IV 128 77.7 167 Precedex 128 77.7 167 Oral 840 160 920 662 Output: Gaviria 1253 1765 3025 1415 - Review of Systems Constitutional Symptoms: Negative: Fever, Other - Chills Dermatology: Positive: Other - Open wound to left foot and erythema to left elbow Endocrinology: Positive: Diabetes Mellitus Objective Active Medications: Hydrocodone Bitart/Acetaminophen (Paradox 5-325 Tab*) 1 tab PO Q6H PRN Reason: PAIN - MODERATE Albuterol/Ipratropium (Duoneb (Albuterol 2.5 Mg/Ipratropium 0.5 Mg)) 1 neb INH Q4H PRN Reason: SOB/WHEEZING Atorvastatin Calcium (Lipitor*) 20 mg PO 1700 [facility] Buspirone HCl (Buspar Tab*) 10 mg PO TID [facility] Clopidogrel Bisulfate (Plavix Tab*) 75 mg PO DAILY [facility] Dextrose (Dextrose 50% Vial 50 Ml*) 25 ml IV PUSH as needed Reason: FS < 60 Docusate Sodium (Colace Cap*) 100 mg PO DAILY PRN Reason: CONSTIPATION Enoxaparin Sodium (Lovenox(*)) 100 mg SUBCUT Q12H [facility] Furosemide (Lasix Iv*) 80 mg IV Q12H [facility] Gabapentin (Neurontin Cap(*)) 600 mg PO QPM [facility] Heparin Sodium (Porcine) (Heparin Flush Picc/Ml/Cvc(*)) 0 ml FLUSH .PER PROTOCOL [facility] Ceftriaxone Sodium 1 gm/ (Sodium Chloride) 50 mls @ 100 mls/hr IVPB Q24H [facility] Norepinephrine Bitartrate (Levophed 16 Mcg/Ml Premix*) 4,000 mcg in 250 mls @ 18.75 mls/hr IV [facility]; Protocol Insulin Human Lispro (Humalog*) 0 units SUBCUT Q4H [facility]; Protocol Lorazepam (Ativan Tab(*)) 0.5 mg PO Q8H PRN Reason: ANXIETY Metoprolol Tartrate (Lopressor Iv*) 5 mg IV Q6H [facility] Mometasone Furoate/Formoterol Fumar (Dulera 200/5 Mdi*) 2 puff INH BID [facility] Morphine Sulfate (Morphine Inj (Syringe))*) 2 mg IV Q2H PRN Reason: .SHORTNESS OF BREATH Nicotine (Nicotine Patch 14 Mg/24 Hr*) 1 patch TRANSDERM DAILY [facility] Pto: Miconazole Nitrate 2% Topical Powder 1 dose TOPICAL BID [facility] Ondansetron HCl (Zofran Inj*) 4 mg IV Q6H PRN Reason: NAUSEA Oxcarbazepine (Trileptal Tab(*)) 300 mg PO BID [facility] Pantoprazole Sodium (Protonix Iv*) 40 mg IV Q24H [facility] Sertraline HCl (Zoloft*) 100 mg PO DAILY [facility] Tiotropium [place]/Olodaterol (Stiolto Respimat Inh [place] (60 Puff)) 2 puff INH DAILY [facility] Vital Signs 10/27/19 10/27/19 10/27/19 14:00 14:31 15:00 Temperature Pulse Rate 76 57 52 Respiratory 15 23 10 Rate Blood Pressure 125/55 94/37 105/47 (mmHg) O2 Sat by Pulse 92 97 93 Oximetry 10/27/19 10/27/19 10/27/19 15:51 16:00 16:01 Temperature 97.5 F Pulse Rate 80 99 Respiratory 27 27 Rate Blood Pressure 146/75 (mmHg) O2 Sat by Pulse 90 84 Oximetry Oxygen Devices in Use Now: High Flow Heated Nasal Cannula Appearance: NAD, sitting up in a chair Ears/Nose/Mouth/Throat: Mucous Membranes Moist Respiratory: Symmetrical Chest Expansion and Respiratory Effort Extremities: - - Weak DP pulse bilateral Skin: - - See skin note below Neurological: - - Alert and oriented to person and confused Result Diagrams: 11/01/19 04:50 11/01/19 04:50 Additional Lab and Data: Above labs were pulled into the note, when the note was edited prior to signing the note. See labs below from the day of consultation. Laboratory Tests 10/26/19 10/27/19 10/27/19 04:30 04:55 04:55 WBC 8.1 Hgb 10.1 L Hct 33 L Plt Count 113 L Sodium 147 H Potassium 4.6 Chloride 110 Carbon Dioxide 31 BUN 61 H Creatinine 1.82 H Glucose 108 H Total Protein 5.2 L Albumin 3.1 L Skin Deviation Note - Skin Deviation Findings Left foot - There is a wound to the plantar aspect of the foot near the 1st MTP , measures 0.7 cm x 0.7 cm x 0.1 cm. The wound base is pink epithelial tissue. The surrounding skin is intact. There is scant serous drainage. Not pictured: There is nonblanchable area of erythema to the left elbow. Wound Problem/Plan Assessment: Mr. Berrios is a 69 yo male with PMH significant for COPD with chronic hypoxic respiratory failure, JOSIAH with BiPAP, heart failure, CAD, CKD, HLD, GERD, IBS, A fib, and DM2; who presented to the emergency room with complaints of shortness of breath. He was admitted to the hospital for acute on chronic hypoxic respiratory failure and acute CHF exacerbation. He presented to the hospital with a known ulcer to the left foot and erythema to the left elbow. 1. Left foot chronic diabetic ulcer. This has been present for a year and is healing per the Pt's . This started as about quarter sized. Recommend [facility] Apply gentamicin ointment, followed by a piece of calcium alginate, followed by a border foam dressing ( i.e. Optifoam or Allevyn adhesive) and change daily. may perform dressing changes. Consider obtaining ABIs, if they have not [facility] the [facility] in the past year. 2. Left elbow erythema. Has a history of infected olecranon bursitis in this arm in the past. He is being treated outpatient with Keflex for osteomyelitis. No overt signs of infection at this time. There is erythema present. Recommend keeping pressure off this area with either a pillow or elbow protector. 3. DM2. HgA1C was 11.3 in 05/2018. Consider rechecking another HgA1C. Maintain good glycemic control to allow for wound healing. 4. Afib. On Eliquis, this can affect wound healing. 5. Nutrition. Albumin 3. Nutrition goals should be met to assist with wound healing (protein 1.2-1.5 gm/kg per day and calories 30-35 kcal/kg per day). Consistent Carbohydrate, purred and nectar thick liquids. 6. Code Status. Full Code. 7. Disposition. Inpatient, disposition per primary medicine team. TIME SPENT: Time for this wound consultation was 25 minutes and 15 minutes was spent with the patient and discussing past medical history; removing the old dressing; assessing, measuring, and photographing the wound; reapplying new dressing. Is Patient a Wound Clinic Patient: No Attending: Evelyn Lux
[2019-10-27] MEDS: HYDROcodone/ACETAMIN 5-325 MG* 1 TAB PO PRN (20:21)
[2019-10-27] MEDS: Nicotine Patch Removal NOTE FOLLOW UP SCH (20:22)
[2019-10-28] MEDS: Metoprolol Tartrate IV* 1 MG/ML 5 ML VIAL IV SCH ×4 (00:41→17:59)
[2019-10-28] MEDS: HYDROcodone/ACETAMIN 5-325 MG* 1 TAB PO PRN ×3 (03:09→20:49)
[2019-10-28 04:50] LABS: Hematocrit 34 % (42-52); Hemoglobin 10.6 g/dL (14.0-18.0); Mean Corpuscular HGB Conc 31 g/dL (31-36); Mean Corpuscular Hemoglobin 25 pg (27-31); Mean Corpuscular Volume 79 fL (80-94); Mean Platelet Volume 9.1 fL (7.4-10.4); Platelet Count 126 10^3/uL (150-450); Red Blood Count 4.28 10^6 /uL (4.18-5.48); Red Cell Distribution Width 19 % (10-15); White Blood Count 11.3 10^3/uL (3.5-10.8)
[2019-10-28] MEDS: Insulin LISPRO* 1 UNITS UNIT SUBCUT SCH ×5 (04:50→21:09)
[2019-10-28 05:07] LABS: BUN/Creatinine Ratio 34.3 (8-20); EGFR African American 60.6 (>60); EGFR Non-African American 50.1 (>60); Potassium 3.6 mmol/L (3.5-5.0)
[2019-10-28] MEDS: LORazepam TAB(*) 0.5 MG PO PRN ×2 (06:28→14:27)
[2019-10-28 07:38] LABS: Magnesium 1.8 mg/dL (1.9-2.7); Uric Acid 8.8 mg/dL (4.4-7.6)
[2019-10-28] MEDS: Mometasone/Formoter 200/5 MDI INH SCH ×2 (08:31→19:35)
[2019-10-28] MEDS: Tiotropium Brom/Olodaterol MDI INH SCH (08:31)
[2019-10-28] MEDS ORDERED: Magnesium Sulfate 2 GM IV* 2 GM/50 ML BAG IVPB ONE (08:34)
[2019-10-28] MEDS: Furosemide IV* 10 MG/ML 10 ML VIAL (100 MG) IV SCH ×2 (09:36→20:42)
[2019-10-28] MEDS: Pantoprazole IV* 40 MG IV SCH (09:44)
[2019-10-28] MEDS: busPIRone TAB* 10 MG PO SCH ×3 (09:52→20:49)
[2019-10-28] MEDS: Sertraline* 100 MG TAB PO SCH (09:52)
[2019-10-28] MEDS: OXcarbazepine TAB(*) 300 MG PO SCH ×2 (09:53→20:49)
[2019-10-28] MEDS: Clopidogrel TAB* 75 MG PO SCH (09:53)
[2019-10-28] MEDS: Nicotine PATCH 14 MG/24 HR* PATCH TRANSDERM SCH (10:01)
[2019-10-28] MEDS: MICONAZOLE NITRATE 2% TOPICAL SCH ×2 (10:02→20:50)
[2019-10-28] MEDS: Enoxaparin(*) 100 MG/ML SYR SUBCUT SCH ×2 (11:39→22:28)
[2019-10-28] MEDS: cefTRIAXone(*) 1 GM in NS 0.9% 50 ML* 50 ML IVPB SCH (12:42)
[2019-10-28] MEDS ORDERED: Loperamide CAP* 2 MG PO PRN (14:03)
--- NOTE | 2019-10-28 15:06 | PN ---
<Tyler Molina - Last Filed: 10/28/19 15:01> Date of Service: 10/28/19 Critical Care Services: 69 yo M with CAD, Afib, PTSD, COPD and CHF presents to the ED on 10/16 with respiratory distress. Per patient he had 2 days of shortness of breath, worsening. Minimal relief from inhaler. [facility]13[facility]19 for CHF exacerbation. 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 On evaluation in the ED his vital signs were stable. Pulse ox 92%. Physical exam notable for mild distress. HR irregularly irregular. mild bilateral wheezing with increased work of breathing and bibasilar crackles noted. WBC 6.9. Cr 1.56. CXR consistent with CHF. EKG with atrial fibrillation, rate 80. unchanged from EKG done 09/22/2019. While in ED, pt had worsening dyspnea and sats dipped to 80s on 3L of O2 (home rate 3.5-4L). Duonebs started, O2 increased and admitted. 10/17: Agitated and refusing BiPAP at night. Per family patient has PTSD and has difficulty tolerating BiPAP at home - they usually have him take his ativan and then once he is sleeping applies BiPAP. Requiring 10L via mask. Lasix for diuresis, dose decreased given rise in creatinine. 10/18: Remains lethargic. ABG with respiratory acidosis; started on BiPAP with subsequent improvement in mental status. 10/19: lethargic again in AM. tolerated biPAP intermittently overnight. Lasix discontinued given rise in BUN & creatinine. 10/20: Lethargic, nonverbal but following commands. Given Valium overnight to allow for pt to tolerate BiPAP. ICU consulted. Noted to have prolonged QTC and psycotropic medications discontinued. Tried on highflow to see if he would be less anxious. Lasix x 1. TTE done with slight worsening of EF as compared to prior. Cardiology consulted. 10/21: Unchanged. on vapotherm. Creatinine continues to rise, further diuresis held. Anxious throughout day. restarted on home Ativan as this should not affect QTc and Gabapentin to prevent withdrawal (also should not affect QTc). 10/22: Weaned down to fiO2 @ 10 L. Off vapotherm since 10/21. Intermittently refusing to participate in exam; likely secondary to chronic psychiatric diagnoses, but also working well with PT and tolerating diet. 10/23: More alert. Continuing to require O2@10LPM. Had two episodes of brief sinus pause (2sec). Digoxin held. 10/24: Became more confused and delirious in the afternoon. No improvement with home Ativan dose. No improvement with either Haldol or Geodon. Started on Precedex. At same time of confusion also become hypoxic to low 80s. CO2 levels at baseline. Started on vapotherm. 10/25: Overnight had brief runs of what appeared to be a ventricular tachycardia. Digoxin restarted. Lasix x 1 given. Cardiology asked to reconsult. 10/26: Overnight had 2 sec of pauses,asymptomatic. COgnitive on and off. 10/27: Overnight asked for Bipap and used it. COgnitive on and off. D/c precedex today. started PO meds-neurontin, zoloft, buspar, ativan. stopped haloperidol. QTc prolonged; will keep eye on it. Good response with IV lasix; increased to 80 mg IV; creatinine 1.8 from 1.9 10/28: Patient more alert and awake. Having generalized abdominal pain which he thinks is because of water;as he is allergic to water since [place] war. NO tenderness though. Good response to lasix. Net negative of 0.6L. Creatinine 1.5 from 1.8. encouraged out of bed to chair. BM overnight Vital Signs: Temp Pulse Resp BP SpO2 FiO2 97.3 F 92 28 126/60 97 70 10/28/19 13:01 10/28/19 14:03 10/28/19 14:27 10/28/19 14:03 10/28/19 14:03 10/28 00:00 Physical Exam: Gen: Resting on a bed with no acute distress. HEENT: Intact Lungs: clear with no added sounds Cardiac: Irregular Abdomen: soft, nondistended and nontender. Normal BS heard Extremities: warm and dry Neuro: alert and oriented Fluid Balance (Past 24 Hours): I= O= Net Intake & Output 10/26/19 10/27/19 10/28/19 10/29/19 06:59 06:59 06:59 06:59 Intake Total 303.7 1174 2562 322 Output Total 1765 3025 3200 1499 Balance -1461.3 -1851 -638 -1177 Weight 94.9 kg 94.3 kg 94.03 kg Intake: IV Fluids 30 30 22 ABX - CEFTRIAXONE 30 NS 30 22 IVPB 66 57 60 120 ABX - CEFTRIAXONE 50 57 60 60 Magnesium 60 NS 16 Medicated IV 77.7 167 Precedex 77.7 167 Oral 690 976 9451 180 Output: Gaviria 1765 3025 3200 1499 Other: # Bowel Movements 1 Estimated Stool Amount Medium Labs: Laboratory Results - last 24 hr 10/27/19 10/27/19 10/27/19 16:14 20:39 23:50 WBC RBC Hgb Hct MCV MCH MCHC RDW Plt Count MPV Sodium Potassium Chloride Carbon Dioxide Anion Gap BUN Creatinine Est GFR ( Amer) Est GFR (Non-Af Amer) BUN/Creatinine Ratio Glucose POC Glucose (mg/dL) 160 H 234 H 260 H Uric Acid Calcium Magnesium 10/28/19 10/28/19 10/28/19 04:40 04:40 04:41 WBC 11.3 H RBC 4.28 Hgb 10.6 L Hct 34 L MCV 79 L MCH 25 L MCHC 31 RDW 19 H Plt Count 126 L MPV 9.1 Sodium 144 Potassium 3.6 Chloride 107 Carbon Dioxide 31 Anion Gap 6 BUN 48 H Creatinine 1.40 H Est GFR ( Amer) 60.6 Est GFR (Non-Af Amer) 50.1 BUN/Creatinine Ratio 34.3 H Glucose 190 H POC Glucose (mg/dL) 209 H Uric Acid 8.8 H Calcium 8.0 L Magnesium 1.8 L 10/28/19 10/28/19 08:15 11:44 WBC RBC Hgb Hct MCV MCH MCHC RDW Plt Count MPV Sodium Potassium Chloride Carbon Dioxide Anion Gap BUN Creatinine Est GFR ( Amer) Est GFR (Non-Af Amer) BUN/Creatinine Ratio Glucose POC Glucose (mg/dL) 101 H 168 H Uric Acid Calcium Magnesium Studies: 10/26 CXR: Cardiomegaly with pulmonary edema 10/26 CT chest: Cardiomegagly with pulmonary interstitial edema. Bilateral pleural effusion. Patchy airspace disease of right middle lobe with dependent atelectasis of bilateral lungs 10/25 CXR - cardiomegaly with intesistial edema and pleural effusions 10/22 CXR - pulmonary intersitital edema, small left pleural effusion. bibasilar atelectasis vs consolidation 10/20 CXR - consistent with CHF 10/20 TTE LVEF 35-40% akinesis of apicalinferior myocardium, hypokinesis fo basal midinferior myocardium. severe dilation of left atrium, moderate dilation of right atrium. mild to moderate regurgitation of mitral valve mild to moderate regurgitation of aortic valve moderate pulmonary artery hypertension 10/19 CXR - right upper lobe airspace disease, interstitial edema Nutrition: pureed, nectar thickened Impression: 69 yo M with CHF and COPD admitted on 10/16 with respiratory distress after recent hospitalization at [facility] for CHF exacerbation. Found to have pulmonary edema. Efforts at diuresis limited by rising creatinine secondary to cardiorenal syndrome. Respiratory function had been improving despite continued presence of pulmonary edema and pleural effusion on CXR. Renal function improved after lasix held for several days. Digoxin held x 2 days for sinus pauses. On 10/24 developed increased confusion and hypoxia. Started on Precedex for confusion and vapotherm. DIg given 10/25 had sinus pauses overnight. lasix increased to 80 mg IV 12H on 10/27; d/c precedex on 10/27; started po meds; diuresing Plan: Hospital Diagnoses: #1: Acute on chronic systolic CHF #2: Acute hypoxic respiratory failure #3: Acute encephalopathy, delirium #4: Cardiorenal syndrome Cardiovascular: (1) Acute on chronic systolic CHF; (2) Afib with RVR, now rate controlled; (3) prolonged QTc; (4) Essential HTN: (5) PVD; (6) CAD with angina and prior [place]; (7) hx of hypertrophic cardiomyopathy with cardiomegaly; (8) hx of carotid stenosis; (9) Hyperlipidemia; (10) elevated troponin; (11) hx of aneurysm; (12) chronic Essential HTN -- HR 80-110 -- SBP 116-180 -- Telemetry -- TTE, 10/20: LVEF 35-40% akinesis of apicalinferior myocardium, hypokinesis fo basal midinferior myocardium. severe dilation of left atrium, moderate dilation of right atrium. mild to moderate regurgitation of mitral valve mild to moderate regurgitation of aortic valve moderate pulmonary artery hypertension -- lasix increased to 80 mg IV BID --Talked to his primary equities analyst, even while having heart failure patient never had LE swelling and is always thirsty and usually requires high dose of lasix; usually would require>100; at home he is taking lasix 120 mg in morning and 80 in the evening Home meds: Lasix, Atorvastatin, plavix, amlodipine, digoxin, metoprolol, eliquis Pulmonary: (1) Acute on chronic hypoxic respiratory failure, improving; (2) Pulmonary edema, cardiac cause, stable; (3) Obstructive sleep apnea; (4) COPD; ( 5) chronic asthma; (6) hx of seasonal allergies -- RR 10-28 -- sats 90-100: alternating on vapotherm and Bipap -- CXR, 10/26: cardiomegaly with intesistial edema --CT chest as above -- ABG(10/25): pH 7.42, pCO2 41, pO2 108, HCO3 26.4, BE 1.9, O2 sat 99.2 -- PRN Duonebs -- Tiotropium bromide/olodaterol & Mometasone --Continue lasix 80 mg IV BID -- pulmonary toilet --speech therapy- pureed, nectar; low suspicion of aspiration Home meds: albuterol, tiotropium bromide/olodaterol, mometasone, home O2 3.5 to 4L NC Gastrointestinal: (1) elevated LFTs secondary to pulmonary congestion, improved ; (2) hx of irritable bowel syndrome; (3) GERD -- LFTs, follow trend 10/26 Tbili 1.2 from 1.1 ALK 158 from 134 AST 92 from 123 ALT 171 from 195 -- diet: pureed, nectar thickened -- bowel regimen: None -- ulcer prophylaxis: Protonix -- PRN zofran --prn loperamide; chronic diarrhea d/t IBS Home meds: Magox, simethicone, protonix, immodium Endocrine: (1) Diabetes mellitus type 2 -- monitor BGs -- SSI -- Prednisone tapered off Home meds: Metformin, Lantus Renal: (1) Acute on chronic stage 3 renal failure, improving; (2) Cardiorenal syndrome; (3) Hyperkalemia; (4) BPH -- UOP: 50 ml/hr, up 10 lbs from admission weight -- Cr 1.8 from 1.93 -- Lytes Na 144 from 147 K 3.6, on lasix Ca 8.0, on replacement Mag 1.8; replaced Phos 5.2 10/26 -- Currently on lasix; need to monitor BMP closely --Uric acis 8.8 from 10 Home meds: Lasix, potassium chloride, flomax Infectious disease: No acute issues -- Tmax 98.1 -- WBC 11.3 from 8.1 -- Micro 10/25 UA equivocal 10/19 UA negative Flu A&B negative -- ABX Keflex x 6 wks for olecranon bursitis (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) Home meds: Keflex Neurologic: (1) Acute encephalopathy/delirium (2) Chronic pain; (3) Anxiety and depression; (4) hx of PTSD; (5) hx of CVA and TIA; (6) peripheral neuropathy ; (7) hx of substance abuse -- Trileptal -- Precedex gtt for delirium-d/c on 10/27 Home meds: gabapentin, buspirone, zoloft, ativan, norco, trileptal Hematological: (1) chronic anemia -- Hgb 10.6 from 10.1 -- Plt 126 from 113 -- DVT prophylaxis: therapeutic lovenox -- Plavix Home meds: plavix, cholecalciferol, eliquis Metabolic: No acute issues Home meds: None Other: No acute issues Home meds: None Deep vein thrombosis prophylaxis: on therapeutic lovenox Dietary: Protonix Condition: serious Prognosis: guarded Code status: full Disposition:continue ICU Care updated at bedside regarding interval events and plan of care Cumulative time spent in the care of this patient (excluding any procedure time) : at least 50 minutes. Patient care included clinical interview (with patient and/or family), bedside exam of the patient, review of labs, x-rays, and other ancillary data, coordination of (respiratory, nursing care, review of patient's records, discussion regarding patients management with involved consultants, primary physician, pharmacists, and other healthcare personnel (dietary, case management , physical/occupational therapy etc.) Critical Care Time: 50 <Ron Quiles - Last Filed: 10/28/19 15:38> Vital Signs: Temp Pulse Resp BP SpO2 FiO2 36.7 C 98 16 151/68 96 70 10/28/19 15:01 10/28/19 15:01 10/28/19 15:01 10/28/19 15:01 10/28/19 15:01 10/28 00:00 Physical Exam: Gen: HEENT: Lungs: Cardiac: Abdomen: Extremities: Neuro: Fluid Balance (Past 24 Hours): I= O= Net Intake & Output 10/26/19 10/27/19 10/28/19 10/29/19 06:59 06:59 06:59 06:59 Intake Total 303.7 1174 2562 322 Output Total 1765 3025 3200 1604 Balance -1461.3 -1851 -638 -1282 Weight 94.9 kg 94.3 kg 94.03 kg Intake: IV Fluids 30 30 22 ABX - CEFTRIAXONE 30 NS 30 22 IVPB 66 57 60 120 ABX - CEFTRIAXONE 50 57 60 60 Magnesium 60 NS 16 Medicated IV 77.7 167 Precedex 77.7 167 Oral 540 282 5071 180 Output: Gaviria 1765 3025 3200 1604 Other: # Bowel Movements 1 Estimated Stool Amount Medium Labs: Laboratory Results - last 24 hr 10/27/19 10/27/19 10/27/19 16:14 20:39 23:50 WBC RBC Hgb Hct MCV MCH MCHC RDW Plt Count MPV Sodium Potassium Chloride Carbon Dioxide Anion Gap BUN Creatinine Est GFR ( Amer) Est GFR (Non-Af Amer) BUN/Creatinine Ratio Glucose POC Glucose (mg/dL) 160 H 234 H 260 H Uric Acid Calcium Magnesium 10/28/19 10/28/19 10/28/19 04:40 04:40 04:41 WBC 11.3 H RBC 4.28 Hgb 10.6 L Hct 34 L MCV 79 L MCH 25 L MCHC 31 RDW 19 H Plt Count 126 L MPV 9.1 Sodium 144 Potassium 3.6 Chloride 107 Carbon Dioxide 31 Anion Gap 6 BUN 48 H Creatinine 1.40 H Est GFR ( Amer) 60.6 Est GFR (Non-Af Amer) 50.1 BUN/Creatinine Ratio 34.3 H Glucose 190 H POC Glucose (mg/dL) 209 H Uric Acid 8.8 H Calcium 8.0 L Magnesium 1.8 L 10/28/19 10/28/19 08:15 11:44 WBC RBC Hgb Hct MCV MCH MCHC RDW Plt Count MPV Sodium Potassium Chloride Carbon Dioxide Anion Gap BUN Creatinine Est GFR ( Amer) Est GFR (Non-Af Amer) BUN/Creatinine Ratio Glucose POC Glucose (mg/dL) 101 H 168 H Uric Acid Calcium Magnesium Plan: Strong negative balance continues with renal indices continuing to fall and BP still high unsupported. Complaining of progressive abdominal pain today. Exam unimpressive but certainly at risk for intestinal ischemia. Will do CXR and AXR now to evaluate his subjective impression of "I'm filling up" but may need CT abdomen. D/W pt and family. This service has been performed in part by a resident under the direction of a teaching physician. I, Ron Quiles, performed the service, or was physically present during the critical, or raymundo portions of the service, furnished by the resident. I participated in the management of the patient.
[2019-10-28] MEDS ORDERED: Morphine INJ* 4 MG/ML 1 ML SYRINGE (NEW SYRINGE VERSION) IV PRN ×2 (15:31→16:53)
[2019-10-28] MEDS ORDERED: hydrALAZINE IV* 20 MG/ML VIAL IV SLOW PU PRN ×2 (16:52→16:58)
[2019-10-28] MEDS ORDERED: hydrALAZINE IV* 20 MG/ML VIAL ONE ×2 (16:57→17:04)
[2019-10-28] MEDS ORDERED: Lorazepam PYXIS KEY PRN ×2 (17:25→21:01)
[2019-10-28] MEDS ORDERED: LORazepam INJ* 2 MG/ML 1 ML VIAL IV PUSH ONE (17:25)
[2019-10-28] MEDS: Gabapentin CAP(*) 300 MG PO SCH (18:06)
[2019-10-28] MEDS: Atorvastatin* 20 MG TAB PO SCH (18:06)
[2019-10-28 18:38] LABS: Urine Appearance Clear; Urine Bilirubin Negative (Negative); Urine Blood 3+ (Negative); Urine Color Yellow; Urine Glucose 1+(50 mg/dL) (Negative); Urine Ketones Negative (Negative); Urine Nitrite Negative (Negative); Urine Protein 1+(30 mg/dL) (Negative); Urine Specific Gravity 1.013 (1.010-1.030); Urine Urobilinogen Negative (Negative)
[2019-10-28 18:45] LABS: Urine Bacteria 1+ (Absent); Urine Granular Casts Present (Absent); Urine Red Blood Cell 3+(>10/hpf) (Absent); Urine White Blood Cell Trace(0-5/hpf) (Absent)
[2019-10-28] MEDS: Nicotine Patch Removal NOTE FOLLOW UP SCH (20:50)
[2019-10-28] MEDS ORDERED: LORazepam INJ* 2 MG/ML 1 ML VIAL IV PUSH PRN (21:00)
[2019-10-29] MEDS: Insulin LISPRO* 1 UNITS UNIT SUBCUT SCH ×6 (00:23→21:55)
[2019-10-29] MEDS: Metoprolol Tartrate IV* 1 MG/ML 5 ML VIAL IV SCH ×4 (00:23→19:39)
[2019-10-29 05:05] LABS: Hematocrit 36 % (42-52); Hemoglobin 11.2 g/dL (14.0-18.0); Mean Corpuscular HGB Conc 31 g/dL (31-36); Mean Corpuscular Hemoglobin 25 pg (27-31); Mean Corpuscular Volume 80 fL (80-94); Mean Platelet Volume 8.9 fL (7.4-10.4); Platelet Count 129 10^3/uL (150-450); Red Blood Count 4.55 10^6 /uL (4.18-5.48); Red Cell Distribution Width 19 % (10-15); White Blood Count 8.7 10^3/uL (3.5-10.8)
[2019-10-29 05:34] LABS: Magnesium 2.1 mg/dL (1.9-2.7)
[2019-10-29] MEDS: LORazepam TAB(*) 0.5 MG PO PRN ×2 (06:04→12:16)
[2019-10-29] MEDS: Morphine INJ* 2 MG/ML 1 ML SYRINGE (TWO MG - NEW SYRINGE VERSION) IV PRN ×5 (06:05→21:54)
[2019-10-29 06:14] LABS: Albumin/Globulin Ratio 1.3 (1-3); Calcium 8.1 mg/dL (8.6-10.3); EGFR African American 76.1 (>60); EGFR Non-African American 62.9 (>60); Globulin 2.3 g/dL (2-4); Potassium 3.6 mmol/L (3.5-5.0); Total Bilirubin 0.8 mg/dL (0.2-1.0); Total Protein 5.3 g/dL (6.4-8.9)
[2019-10-29] MEDS: Pantoprazole IV* 40 MG IV SCH (08:17)
[2019-10-29] MEDS: Furosemide IV* 10 MG/ML 10 ML VIAL (100 MG) IV SCH ×2 (08:17→21:54)
[2019-10-29] MEDS: Mometasone/Formoter 200/5 MDI INH SCH ×2 (08:24→19:53)
[2019-10-29] MEDS: Tiotropium Brom/Olodaterol MDI INH SCH (08:25)
[2019-10-29] MEDS: busPIRone TAB* 10 MG PO SCH ×3 (08:55→21:58)
[2019-10-29] MEDS: Nicotine PATCH 14 MG/24 HR* PATCH TRANSDERM SCH (08:55)
[2019-10-29] MEDS: MICONAZOLE NITRATE 2% TOPICAL SCH ×2 (08:55→21:57)
[2019-10-29] MEDS: Clopidogrel TAB* 75 MG PO SCH (08:55)
[2019-10-29] MEDS: Sertraline* 100 MG TAB PO SCH (08:55)
--- NOTE | 2019-10-29 10:59 | PN ---
<Tyler Molina - Last Filed: 10/29/19 10:48> Date of Service: 10/29/19 Critical Care Services: 69 yo M with CAD, Afib, PTSD, COPD and CHF presents to the ED on 10/16 with respiratory distress. Per patient he had 2 days of shortness of breath, worsening. Minimal relief from inhaler. [facility]13[facility]19 for CHF exacerbation. 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 On evaluation in the ED his vital signs were stable. Pulse ox 92%. Physical exam notable for mild distress. HR irregularly irregular. mild bilateral wheezing with increased work of breathing and bibasilar crackles noted. WBC 6.9. Cr 1.56. CXR consistent with CHF. EKG with atrial fibrillation, rate 80. unchanged from EKG done 09/22/2019. While in ED, pt had worsening dyspnea and sats dipped to 80s on 3L of O2 (home rate 3.5-4L). Duonebs started, O2 increased and admitted. 10/17: Agitated and refusing BiPAP at night. Per family patient has PTSD and has difficulty tolerating BiPAP at home - they usually have him take his ativan and then once he is sleeping applies BiPAP. Requiring 10L via mask. Lasix for diuresis, dose decreased given rise in creatinine. 10/18: Remains lethargic. ABG with respiratory acidosis; started on BiPAP with subsequent improvement in mental status. 10/19: lethargic again in AM. tolerated biPAP intermittently overnight. Lasix discontinued given rise in BUN & creatinine. 10/20: Lethargic, nonverbal but following commands. Given Valium overnight to allow for pt to tolerate BiPAP. ICU consulted. Noted to have prolonged QTC and psycotropic medications discontinued. Tried on highflow to see if he would be less anxious. Lasix x 1. TTE done with slight worsening of EF as compared to prior. Cardiology consulted. 10/21: Unchanged. on vapotherm. Creatinine continues to rise, further diuresis held. Anxious throughout day. restarted on home Ativan as this should not affect QTc and Gabapentin to prevent withdrawal (also should not affect QTc). 10/22: Weaned down to fiO2 @ 10 L. Off vapotherm since 10/21. Intermittently refusing to participate in exam; likely secondary to chronic psychiatric diagnoses, but also working well with PT and tolerating diet. 10/23: More alert. Continuing to require O2@10LPM. Had two episodes of brief sinus pause (2sec). Digoxin held. 10/24: Became more confused and delirious in the afternoon. No improvement with home Ativan dose. No improvement with either Haldol or Geodon. Started on Precedex. At same time of confusion also become hypoxic to low 80s. CO2 levels at baseline. Started on vapotherm. 10/25: Overnight had brief runs of what appeared to be a ventricular tachycardia. Digoxin restarted. Lasix x 1 given. Cardiology asked to reconsult. 10/26: Overnight had 2 sec of pauses,asymptomatic. COgnitive on and off. 10/27: Overnight asked for Bipap and used it. COgnitive on and off. D/c precedex today. started PO meds-neurontin, zoloft, buspar, ativan. stopped haloperidol. QTc prolonged; will keep eye on it. Good response with IV lasix; increased to 80 mg IV; creatinine 1.8 from 1.9 10/28: Patient more alert and awake. Having generalized abdominal pain which he thinks is because of water;as he is allergic to water since [place] war. NO tenderness though. Good response to lasix. Net negative of 0.6L. Creatinine 1.5 from 1.8. encouraged out of bed to chair. BM overnight 10/29: Patient denies abdominal pain. He feels well, Somewhat anxious; feels like he wants go somewhere. is uptodate with his needs. Normal creatinine. Net negative of 2L. Vital Signs: Temp Pulse Resp BP SpO2 FiO2 97.5 F 100 13 131/58 97 60 10/29/19 10:10/29/19 10:10/29/19 10:10/29/19 10:10/29/19 10:10/29 04:00 Physical Exam: Gen:resting well on abed with no acute distress HEENT: Normocephlaic and atraumatic Lungs: clear Cardiac: irregular Abdomen: soft, nondistended and nontender, Extremities: pigmentation; warm and dry Neuro: alert and anxious Fluid Balance (Past 24 Hours): I= O= Net Intake & Output 10/27/19 10/28/19 10/29/19 10/30/19 06:59 06:59 06:59 06:59 Intake Total 1174 2562 802 200 Output Total 3025 3208 3149 745 Balance -1851 -638 -2342 -545 Weight 94.3 kg 94.03 kg 93.3 kg Intake: IV Fluids 30 30 22 ABX - CEFTRIAXONE 30 NS 30 22 IVPB 57 60 120 ABX - CEFTRIAXONE 57 60 60 Magnesium 60 Medicated IV 167 Precedex 167 Oral 920 2472 660 200 Output: Gavir[place] 3025 3200 [id number] 749 Other: # Bowel Movements 1 Estimated Stool Amount Medium Labs: Laboratory Results - last 24 hr 10/28/19 10/28/19 10/28/19 11:44 17:16 17:24 WBC RBC Hgb Hct MCV MCH MCHC RDW Plt Count MPV Sodium Potassium Chloride Carbon Dioxide Anion Gap BUN Creatinine Est GFR ( Amer) Est GFR (Non-Af Amer) BUN/Creatinine Ratio Glucose POC Glucose (mg/dL) 168 H 342 H Calcium Magnesium Total Bilirubin AST ALT Alkaline Phosphatase Total Protein Albumin Globulin Albumin/Globulin Ratio Urine Color Yellow Urine Appearance Clear Urine pH 5.0 Ur Specific [place] 1.013 Urine Protein 1+(30 mg/dl) A Urine Ketones Negative Urine Blood 3+ A Urine Nitrate Negative Urine Bilirubin Negative Urine Urobilinogen Negative Ur Leukocyte Esterase Negative Urine WBC (Auto) Trace(0-5/hpf) Urine RBC (Auto) 3+(>10/hpf) A Urine Bacteria 1+ A Hyaline Casts Present A Granular Casts Present A Urine Glucose 1+(50 mg/dl) A 10/28/19 10/29/19 10/29/19 21:04 00:10 04:55 WBC 8.7 RBC 4.55 Hgb 11.2 L Hct 36 L MCV 80 MCH 25 L MCHC 31 RDW 19 H Plt Count 129 L MPV 8.9 Sodium Potassium Chloride Carbon Dioxide Anion Gap BUN Creatinine Est GFR ( Amer) Est GFR (Non-Af Amer) BUN/Creatinine Ratio Glucose POC Glucose (mg/dL) 225 H 157 H Calcium Magnesium Total Bilirubin AST ALT Alkaline Phosphatase Total Protein Albumin Globulin Albumin/Globulin Ratio Urine Color Urine Appearance Urine pH Ur Specific [place] Urine Protein Urine Ketones Urine Blood Urine Nitrate Urine Bilirubin Urine Urobilinogen Ur Leukocyte Esterase Urine WBC (Auto) Urine RBC (Auto) Urine Bacteria Hyaline Casts Granular Casts Urine Glucose 10/29/19 10/29/19 04:55 06:12 WBC RBC Hgb Hct MCV MCH MCHC RDW Plt Count MPV Sodium 147 H Potassium 3.6 Chloride 108 Carbon Dioxide 32 Anion Gap 7 BUN 31 H Creatinine 1.15 Est GFR ( Amer) 76.1 Est GFR (Non-Af Amer) 62.9 BUN/Creatinine Ratio 27.0 H Glucose 116 H POC Glucose (mg/dL) 150 H Calcium 8.1 L Magnesium 2.1 Total Bilirubin 0.80 AST 26 ALT 72 H Alkaline Phosphatase 120 H Total Protein 5.3 L Albumin 3.0 L Globulin 2.3 Albumin/Globulin Ratio 1.3 Urine Color Urine Appearance Urine pH Ur Specific [place] Urine Protein Urine Ketones Urine Blood Urine Nitrate Urine Bilirubin Urine Urobilinogen Ur Leukocyte Esterase Urine WBC (Auto) Urine RBC (Auto) Urine Bacteria Hyaline Casts Granular Casts Urine Glucose Studies: 10/27 CT abdomen: Limited study for ischemia because of lack of contrast. Bilateral pleural effusion. Degenrative disc disease and OA CXR : Cardiomegaly with interstitial edema; airspace opacification on right upper lung 10/26 CXR: Cardiomegaly with pulmonary edema 10/26 CT chest: Cardiomegagly with pulmonary interstitial edema. Bilateral pleural effusion. Patchy airspace disease of right middle lobe with dependent atelectasis of bilateral lungs 10/25 CXR - cardiomegaly with intesistial edema and pleural effusions 10/22 CXR - pulmonary intersitital edema, small left pleural effusion. bibasilar atelectasis vs consolidation 10/20 CXR - consistent with CHF 10/20 TTE LVEF 35-40% akinesis of apicalinferior myocardium, hypokinesis fo basal midinferior myocardium. severe dilation of left atrium, moderate dilation of right atrium. mild to moderate regurgitation of mitral valve mild to moderate regurgitation of aortic valve moderate pulmonary artery hypertension 10/19 CXR - right upper lobe airspace disease, interstitial edema Nutrition: pureed; nectar thickened Impression: 69 yo M with CHF and COPD admitted on 10/16 with respiratory distress after recent hospitalization at OR for CHF exacerbation. Found to have pulmonary edema. Efforts at diuresis limited by rising creatinine secondary to cardiorenal syndrome. Respiratory function had been improving despite continued presence of pulmonary edema and pleural effusion on CXR. Renal function improved after lasix held for several days. Digoxin held x 2 days for sinus pauses. On 10/24 developed increased confusion and hypoxia. Started on Precedex for confusion and vapotherm. DIg given 10/25 had sinus pauses overnight. lasix increased to 80 mg IV 12H on 10/27; d/c precedex on 10/27; started po meds; diuresing Plan: Hospital Diagnoses: #1: Acute on chronic systolic CHF #2: Acute hypoxic respiratory failure #3: Acute encephalopathy, delirium #4: Cardiorenal syndrome Cardiovascular: (1) Acute on chronic systolic CHF; (2) Afib with RVR, now rate controlled; (3) prolonged QTc; (4) Essential HTN: (5) PVD; (6) CAD with angina and prior [place]; (7) hx of hypertrophic cardiomyopathy with cardiomegaly; (8) hx of carotid stenosis; (9) Hyperlipidemia; (10) elevated troponin; (11) hx of aneurysm; (12) chronic Essential HTN -- HR 80-110 -- SBP 116-180 -- Telemetry -- TTE, 10/20: LVEF 35-40% akinesis of apicalinferior myocardium, hypokinesis fo basal midinferior myocardium. severe dilation of left atrium, moderate dilation of right atrium. mild to moderate regurgitation of mitral valve mild to moderate regurgitation of aortic valve moderate pulmonary artery hypertension -- lasix increased to 80 mg IV BID --Talked to his primary ordnance officer, even while having heart failure patient never had LE swelling and is always thirsty and usually requires high dose of lasix; usually would require>100; at home he is taking lasix 120 mg in morning and 80 in the evening --continue diuresing; his creatinine is normal now after diuresing Home meds: Lasix, Atorvastatin, plavix, amlodipine, digoxin, metoprolol, eliquis Pulmonary: (1) Acute on chronic hypoxic respiratory failure, improving; (2) Pulmonary edema, cardiac cause, stable; (3) Obstructive sleep apnea; (4) COPD; ( 5) chronic asthma; (6) hx of seasonal allergies -- RR 10-28 -- sats 90-100: alternating on vapotherm and Bipap -- CXR, 10/28: cardiomegaly with intesistial edema and airspace opacification on right upper lung --CT chest as above -- ABG(10/25): pH 7.42, pCO2 41, pO2 108, HCO3 26.4, BE 1.9, O2 sat 99.2 -- PRN Duonebs -- Tiotropium bromide/olodaterol & Mometasone --Continue lasix 80 mg IV BID -- pulmonary toilet --speech therapy- pureed, nectar; low suspicion of aspiration Home meds: albuterol, tiotropium bromide/olodaterol, mometasone, home O2 3.5 to 4L [place] Gastrointestinal: (1) elevated LFTs secondary to pulmonary congestion, improved ; (2) hx of irritable bowel syndrome; (3) GERD -- LFTs, 10/29 Tbili 0.8 from 1.2 ALK 120 from 158 AST 26 from 92 ALT 72 from 171 --likely congestive; resolved -- diet: pureed, nectar thickened -- bowel regimen: None -- ulcer prophylaxis: Protonix -- PRN zofran --prn loperamide; chronic diarrhea d/t IBS --patient was having abdominal pain, diarrhea and leucocytosis yesterday; so sent C. diff-pending Home meds: Magox, simethicone, protonix, immodium Endocrine: (1) Diabetes mellitus type 2 -- monitor BGs -- SSI -- Prednisone tapered off --total insulin requirement on 10/28 is 18; so starting insulin lantus 12 U Home meds: Metformin, Lantus Renal: (1) Acute on chronic stage 3 renal failure, improving; (2) Cardiorenal syndrome; (3) Hyperkalemia; (4) BPH -- UOP: 120-130 ml /hr -- Cr 1.15 from 1.4 -- Lytes Na 147 from 144 K 3.6, on lasix Ca 8.1, on replacement Mag 2.1; Phos 5.2 10/26 -- Currently on lasix; need to monitor BMP closely --Uric acis 8.8 from 10 Home meds: Lasix, potassium chloride, flomax Infectious disease: No acute issues -- Tmax 98.1 -- WBC 8.7 from 11.3 -- Micro 10/28 UA equivocal; pending culture 10/19 UA negative Flu A&B negative -- ABX Keflex x 6 wks for olecranon bursitis (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) Home meds: Keflex Neurologic: (1) Acute encephalopathy/delirium (2) Chronic pain; (3) Anxiety and depression; (4) hx of PTSD; (5) hx of CVA and TIA; (6) peripheral neuropathy ; (7) hx of substance abuse -- Trileptal -- Precedex gtt for delirium-d/c on 10/27 Home meds: gabapentin, buspirone, zoloft, ativan, norco, trileptal Hematological: (1) chronic anemia -- Hgb 11.2 from 10.6 -- Plt 129 from 126 -- DVT prophylaxis: therapeutic lovenox -- Plavix Home meds: plavix, cholecalciferol, eliquis Metabolic: No acute issues Home meds: None Other: No acute issues Home meds: None Deep vein thrombosis prophylaxis: on therapeutic lovenox Dietary: Protonix Condition: serious Prognosis: guarded Code status: full Disposition:continue ICU Care updated at bedside regarding interval events and plan of care Cumulative time spent in the care of this patient (excluding any procedure time) : at least 50 minutes. Patient care included clinical interview (with patient and/or family), bedside exam of the patient, review of labs, x-rays, and other ancillary data, coordination of (respiratory, nursing care, review of patient's records, discussion regarding patients management with involved consultants, primary physician, pharmacists, and other healthcare personnel (dietary, case management , physical/occupational therapy etc.) Critical Care Time: 50 <Ron Quiles - Last Filed: 10/29/19 13:31> Vital Signs: Temp Pulse Resp BP SpO2 FiO2 36.6 C 73 8 123/58 96 60 10/29/19 13:00 10/29/19 13:00 10/29/19 13:00 10/29/19 13:10/29/19 13:10/29 04:00 Physical Exam: Gen: HEENT: Lungs: Cardiac: Abdomen: Extremities: Neuro: Fluid Balance (Past 24 Hours): I= O= Net Intake & Output 10/27/19 10/28/19 10/29/19 10/30/19 06:59 06:59 06:59 06:59 Intake Total 1174 2562 802 251 Output Total 3025 3200 3148 1080 Balance -1287 -638 -2342 -829 Weight 94.3 kg 94.03 kg 93.3 kg Intake: IV Fluids 30 30 22 51 ABX - CEFTRIAXONE 30 51 NS 30 22 IVPB 57 60 120 ABX - CEFTRIAXONE 57 60 60 Magnesium 60 Medicated IV 167 Precedex 167 Oral 920 2472 660 200 Output: Gaviria 3025 3200 7513 3358 Other: # Bowel Movements 1 Estimated Stool Amount Medium Labs: Laboratory Results - last 24 hr 10/28/19 10/28/19 10/28/19 17:16 17:24 21:04 WBC RBC Hgb Hct MCV MCH MCHC RDW Plt Count MPV Sodium Potassium Chloride Carbon Dioxide Anion Gap BUN Creatinine Est GFR ( Amer) Est GFR (Non-Af Amer) BUN/Creatinine Ratio Glucose POC Glucose (mg/dL) 342 H 225 H Calcium Magnesium Total Bilirubin AST ALT Alkaline Phosphatase Total Protein Albumin Globulin Albumin/Globulin Ratio Urine Color Yellow Urine Appearance Clear Urine pH 5.0 Ur Specific [place] 1.013 Urine Protein 1+(30 mg/dl) A Urine Ketones Negative Urine Blood 3+ A Urine Nitrate Negative Urine Bilirubin Negative Urine Urobilinogen Negative Ur Leukocyte Esterase Negative Urine WBC (Auto) Trace(0-5/hpf) Urine RBC (Auto) 3+(>10/hpf) A Urine Bacteria 1+ A Hyaline Casts Present A Granular Casts Present A Urine Glucose 1+(50 mg/dl) A 10/29/19 10/29/19 10/29/19 00:10 04:55 04:55 WBC 8.7 RBC 4.55 Hgb 11.2 L Hct 36 L MCV 80 MCH 25 L MCHC 31 RDW 19 H Plt Count 129 L MPV 8.9 Sodium 147 H Potassium 3.6 Chloride 108 Carbon Dioxide 32 Anion Gap 7 BUN 31 H Creatinine 1.15 Est GFR ( Amer) 76.1 Est GFR (Non-Af Amer) 62.9 BUN/Creatinine Ratio 27.0 H Glucose 116 H POC Glucose (mg/dL) 157 H Calcium 8.1 L Magnesium 2.1 Total Bilirubin 0.80 AST 26 ALT 72 H Alkaline Phosphatase 120 H Total Protein 5.3 L Albumin 3.0 L Globulin 2.3 Albumin/Globulin Ratio 1.3 Urine Color Urine Appearance Urine pH Ur Specific [place] Urine Protein Urine Ketones Urine Blood Urine Nitrate Urine Bilirubin Urine Urobilinogen Ur Leukocyte Esterase Urine WBC (Auto) Urine RBC (Auto) Urine Bacteria Hyaline Casts Granular Casts Urine Glucose 10/29/19 06:12 WBC RBC Hgb Hct MCV MCH MCHC RDW Plt Count MPV Sodium Potassium Chloride Carbon Dioxide Anion Gap BUN Creatinine Est GFR ( Amer) Est GFR (Non-Af Amer) BUN/Creatinine Ratio Glucose POC Glucose (mg/dL) 150 H Calcium Magnesium Total Bilirubin AST ALT Alkaline Phosphatase Total Protein Albumin Globulin Albumin/Globulin Ratio Urine Color Urine Appearance Urine pH Ur Specific [place] Urine Protein Urine Ketones Urine Blood Urine Nitrate Urine Bilirubin Urine Urobilinogen Ur Leukocyte Esterase Urine WBC (Auto) Urine RBC (Auto) Urine Bacteria Hyaline Casts Granular Casts Urine Glucose Plan: Approaching euvolemia for him. Strong and consistent negative balance last 4 days and Cr has only serially fallen. He is doing well with PT. Abd pain from yesterday has abated and his CT findings were limited but no actionable pathology was seen. Now stable for transfer to floors. D/W pt and . This service has been performed in part by a resident under the direction of a teaching physician. I, Ron Quiles, performed the service, or was physically present during the critical, or raymundo portions of the service, furnished by the resident. I participated in the management of the patient.
[2019-10-29] MEDS: OXcarbazepine TAB(*) 300 MG PO SCH ×2 (11:14→21:58)
[2019-10-29] MEDS: Enoxaparin(*) 100 MG/ML SYR SUBCUT SCH (11:19)
[2019-10-29] MEDS ORDERED: LORazepam TAB(*) 0.5 MG PO PRN (12:02)
[2019-10-29] MEDS: Insulin GLARGINE(*) 1 UNITS UNIT SUBCUT SCH (12:16)
[2019-10-29] MEDS: cefTRIAXone(*) 1 GM in NS 0.9% 50 ML* 50 ML IVPB SCH (12:51)
[2019-10-29] MEDS ORDERED: Lorazepam PYXIS KEY PRN (16:27)
[2019-10-29] MEDS ORDERED: LORazepam INJ* 2 MG/ML 1 ML VIAL IV PUSH ONE (16:27)
--- NOTE | 2019-10-29 16:36 | PN ---
Progress Note - Progress Note Date of Service: 10/29/19 Note: Called to see pt due to increased work of breathing and distress. There is concern that the patient will need to be transferred back to the ICU. The patient does not respond to any of my questions. He is quite agitated, pulling at the BiPAP mask. Trialled on salter and pt desaturated with HR increasing. Going to be placed back on BiPAP. Check ABG. Ativan 0.5mg IV now (received morphine 2mg IV x1 just a bit ago). Unfortunately I believe the patient is going to need to be transferred back to the ICU. Will monitor for only a short period of time longer on the floor and if he does not settle down transfer to the ICU.
[2019-10-29] MEDS: Dexmedetomidine* 1,000 MCG in NS 0.9% 250 ML* 240 ML IV SCH ×2 (19:11→20:06)
[2019-10-29] MEDS: Atorvastatin* 20 MG TAB PO SCH (19:39)
[2019-10-29] MEDS: Gabapentin CAP(*) 300 MG PO SCH (19:39)
[2019-10-29] MEDS: Nicotine Patch Removal NOTE FOLLOW UP SCH (21:59)
[2019-10-30] MEDS: Metoprolol Tartrate IV* 1 MG/ML 5 ML VIAL IV SCH ×4 (00:11→17:45)
[2019-10-30] MEDS: Insulin LISPRO* 1 UNITS UNIT SUBCUT SCH ×6 (01:18→21:04)
[2019-10-30] MEDS: Enoxaparin(*) 100 MG/ML SYR SUBCUT SCH ×3 (01:19→21:10)
[2019-10-30 06:06] LABS: BUN/Creatinine Ratio 21.5 (8-20); Calcium 7.7 mg/dL (8.6-10.3); EGFR Non-African American 54.6 (>60); Potassium 3.9 mmol/L (3.5-5.0)
[2019-10-30 06:09] LABS: Hematocrit 24 % (42-52); Hemoglobin 7.2 g/dL (14.0-18.0); Mean Corpuscular HGB Conc 31 g/dL (31-36); Mean Corpuscular Hemoglobin 25 pg (27-31); Mean Corpuscular Volume 81 fL (80-94); Mean Platelet Volume 9.5 fL (7.4-10.4); Platelet Count 71 10^3/uL (150-450); Red Blood Count 2.91 10^6 /uL (4.18-5.48); Red Cell Distribution Width 20 % (10-15); White Blood Count 5.4 10^3/uL (3.5-10.8)
[2019-10-30] MEDS: busPIRone TAB* 10 MG PO SCH ×3 (09:37→21:10)
[2019-10-30] MEDS: MICONAZOLE NITRATE 2% TOPICAL SCH ×2 (09:46→21:12)
[2019-10-30] MEDS: Furosemide IV* 10 MG/ML 10 ML VIAL (100 MG) IV SCH (09:48)
[2019-10-30] MEDS: Morphine INJ* 2 MG/ML 1 ML SYRINGE (TWO MG - NEW SYRINGE VERSION) IV PRN (11:33)
[2019-10-30] MEDS ORDERED: Lorazepam PYXIS KEY PRN (11:34)
[2019-10-30] MEDS: Insulin GLARGINE(*) 1 UNITS UNIT SUBCUT SCH (12:48)
[2019-10-30] MEDS: Pantoprazole IV* 40 MG IV SCH (13:05)
[2019-10-30] MEDS: Sertraline* 100 MG TAB PO SCH (13:10)
[2019-10-30] MEDS: Mometasone/Formoter 200/5 MDI INH SCH ×2 (13:17→21:10)
[2019-10-30] MEDS: Tiotropium Brom/Olodaterol MDI INH SCH (13:17)
--- NOTE | 2019-10-30 13:19 | PN ---
<Tyler Molina - Last Filed: 10/30/19 13:12> Date of Service: 10/30/19 Critical Care Services: 69 yo M with CAD, Afib, PTSD, COPD and CHF presents to the ED on 10/16 with respiratory distress. Per patient he had 2 days of shortness of breath, worsening. Minimal relief from inhaler. [facility]13[facility]19 for CHF exacerbation. 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 On evaluation in the ED his vital signs were stable. Pulse ox 92%. Physical exam notable for mild distress. HR irregularly irregular. mild bilateral wheezing with increased work of breathing and bibasilar crackles noted. WBC 6.9. Cr 1.56. CXR consistent with CHF. EKG with atrial fibrillation, rate 80. unchanged from EKG done 09/22/2019. While in ED, pt had worsening dyspnea and sats dipped to 80s on 3L of O2 (home rate 3.5-4L). Duonebs started, O2 increased and admitted. 10/17: Agitated and refusing BiPAP at night. Per family patient has PTSD and has difficulty tolerating BiPAP at home - they usually have him take his ativan and then once he is sleeping applies BiPAP. Requiring 10L via mask. Lasix for diuresis, dose decreased given rise in creatinine. 10/18: Remains lethargic. ABG with respiratory acidosis; started on BiPAP with subsequent improvement in mental status. 10/19: lethargic again in AM. tolerated biPAP intermittently overnight. Lasix discontinued given rise in BUN & creatinine. 10/20: Lethargic, nonverbal but following commands. Given Valium overnight to allow for pt to tolerate BiPAP. ICU consulted. Noted to have prolonged QTC and psycotropic medications discontinued. Tried on highflow to see if he would be less anxious. Lasix x 1. TTE done with slight worsening of EF as compared to prior. Cardiology consulted. 10/21: Unchanged. on vapotherm. Creatinine continues to rise, further diuresis held. Anxious throughout day. restarted on home Ativan as this should not affect QTc and Gabapentin to prevent withdrawal (also should not affect QTc). 10/22: Weaned down to fiO2 @ 10 L. Off vapotherm since 10/21. Intermittently refusing to participate in exam; likely secondary to chronic psychiatric diagnoses, but also working well with PT and tolerating diet. 10/23: More alert. Continuing to require O2@10LPM. Had two episodes of brief sinus pause (2sec). Digoxin held. 10/24: Became more confused and delirious in the afternoon. No improvement with home Ativan dose. No improvement with either Haldol or Geodon. Started on Precedex. At same time of confusion also become hypoxic to low 80s. CO2 levels at baseline. Started on vapotherm. 10/25: Overnight had brief runs of what appeared to be a ventricular tachycardia. Digoxin restarted. Lasix x 1 given. Cardiology asked to reconsult. 10/26: Overnight had 2 sec of pauses,asymptomatic. COgnitive on and off. 10/27: Overnight asked for Bipap and used it. COgnitive on and off. D/c precedex today. started PO meds-neurontin, zoloft, buspar, ativan. stopped haloperidol. QTc prolonged; will keep eye on it. Good response with IV lasix; increased to 80 mg IV; creatinine 1.8 from 1.9 10/28: Patient more alert and awake. Having generalized abdominal pain which he thinks is because of water;as he is allergic to water since [place] war. NO tenderness though. Good response to lasix. Net negative of 0.6L. Creatinine 1.5 from 1.8. encouraged out of bed to chair. BM overnight 10/29: Patient denies abdominal pain. He feels well, Somewhat anxious; feels like he wants go somewhere. is uptodate with his needs. Normal creatinine. Net negative of 2L. Patient transferred to floor in the morning. later in the evening patient became anxious and was agitated. Brain CT showeed no acute abnormalities; chronic changes. He was having flashback because of PTSD. So transferred to ICU for precedex. 10/30: Patient sedated; on precedex;0.2. saturating 95-98% on BiPAP. Patient uses bipap at home; according to she puts him on Bipap machine after he sleeps as he becomes anxious and is claustrophobic. He is anxious at baseline; uses 0.5 mg ativan 6 hrly with extra doses when gets more anxious at home. He went to [place] was so has PTSD and gets flashbacks. He is having sundowning as patient becomes more anxious during evening. We will try to wean him off precedex and increase ativan to q4h and Morphine 2 mg q2hr. Vital Signs: Temp Pulse Resp BP SpO2 FiO2 98.6 F 63 24 101/43 100 60 10/30/19 06:15 10/30/19 06:15 10/30/19 11:33 10/30/19 06:15 10/30/19 06:15 10/29 04:00 Physical Exam: Gen: resting on a bed with Bipap machine HEENT:oxymask for Bipap Lungs: clear Cardiac: irregular Abdomen: soft, nondistended and nontender Extremities: warm and dry with pigmentation and chronic wound on left plantar aspect Neuro: sedated Fluid Balance (Past 24 Hours): I= O= Net Intake & Output 10/28/19 10/29/19 10/30/19 10/31/19 06:59 06:59 06:59 06:59 Intake Total 2562 802 324.2 Output Total 3200 3144 1580 185 Balance -638 -2342 -1255.8 -185 Weight 94.03 kg 93.3 kg 94.257 kg Intake: IV Fluids 30 22 51 ABX - CEFTRIAXONE 30 51 NS 22 IVPB 60 120 ABX - CEFTRIAXONE 60 60 Magnesium 60 Medicated IV 73.2 Precedex 73.2 Oral 2472 660 200 Output: Gaviria 3200 3144 1580 185 Other: # Bowel Movements 1 Estimated Stool Amount Medium Labs: Laboratory Results - last 24 hr 10/29/19 10/29/19 10/29/19 08:19 11:53 16:04 WBC RBC Hgb Hct MCV MCH MCHC RDW Plt Count MPV Patient Temperature ABG pH ABG pH (Temp Correct) ABG pCO2 ABG pCO2 (Temp Corrct ABG pO2 ABG pO2 (Temp Correct ABG HCO3 ABG O2 Saturation ABG Base Excess Respiration Rate Ventilator Type Vent Mode FiO2 Inspiratory Time PEEP Pressure Support Pressure Control EPAP IPAP BiPAP Sodium Potassium Chloride Carbon Dioxide Anion Gap BUN Creatinine Est GFR ( Amer) Est GFR (Non-Af Amer) BUN/Creatinine Ratio Glucose POC Glucose (mg/dL) 138 H 236 H 183 H Calcium Magnesium Ammonia 10/29/19 10/29/19 10/30/19 16:40 21:42 01:09 WBC RBC Hgb Hct MCV MCH MCHC RDW Plt Count MPV Patient Temperature Not Reportable ABG pH 7.41 ABG pH (Temp Correct) Not Reportable ABG pCO2 52 H ABG pCO2 (Temp Corrct Not Reportable ABG pO2 56 L* ABG pO2 (Temp Correct Not Reportable ABG HCO3 30.1 ABG O2 Saturation 90.6 L ABG Base Excess 6.9 H Respiration Rate Not Reportable Ventilator Type Not Reportable Vent Mode Not Reportable FiO2 10 Inspiratory Time Not Reportable PEEP Not Reportable Pressure Support Not Reportable Pressure Control Not Reportable EPAP Not Reportable IPAP Not Reportable BiPAP Not Reportable Sodium Potassium Chloride Carbon Dioxide Anion Gap BUN Creatinine Est GFR ( Amer) Est GFR (Non-Af Amer) BUN/Creatinine Ratio Glucose POC Glucose (mg/dL) 236 H 193 H Calcium Magnesium Ammonia 10/30/19 10/30/19 10/30/19 04:14 05:00 05:00 WBC 5.4 RBC 2.91 L Hgb 7.2 L Hct 24 L MCV 81 MCH 25 L MCHC 31 RDW 20 H Plt Count 71 L D MPV 9.5 Patient Temperature ABG pH ABG pH (Temp Correct) ABG pCO2 ABG pCO2 (Temp Corrct ABG pO2 ABG pO2 (Temp Correct ABG HCO3 ABG O2 Saturation ABG Base Excess Respiration Rate Ventilator Type Vent Mode FiO2 Inspiratory Time PEEP Pressure Support Pressure Control EPAP IPAP BiPAP Sodium Potassium Chloride Carbon Dioxide Anion Gap BUN Creatinine Est GFR ( Amer) Est GFR (Non-Af Amer) BUN/Creatinine Ratio Glucose POC Glucose (mg/dL) 120 H Calcium Magnesium Ammonia 45 10/30/19 05:00 WBC RBC Hgb Hct MCV MCH MCHC RDW Plt Count MPV Patient Temperature ABG pH ABG pH (Temp Correct) ABG pCO2 ABG pCO2 (Temp Corrct ABG pO2 ABG pO2 (Temp Correct ABG HCO3 ABG O2 Saturation ABG Base Excess Respiration Rate Ventilator Type Vent Mode FiO2 Inspiratory Time PEEP Pressure Support Pressure Control EPAP IPAP BiPAP Sodium 149 H Potassium 3.9 Chloride 112 H Carbon Dioxide 35 H Anion Gap 2 BUN 28 H Creatinine 1.30 H Est GFR ( Amer) 66.0 Est GFR (Non-Af Amer) 54.6 BUN/Creatinine Ratio 21.5 H Glucose 78 POC Glucose (mg/dL) Calcium 7.7 L Magnesium 2.0 Ammonia Studies: 10/[address]: No acute intracranial abnormality; chronic microvascular ischemic changes. 10/28 CT abdomen: Limited study for ischemia because of lack of contrast. Bilateral pleural effusion. Degenrative disc disease and OA CXR : Cardiomegaly with interstitial edema; airspace opacification on right upper lung 10/26 CXR: Cardiomegaly with pulmonary edema 10/26 CT chest: Cardiomegagly with pulmonary interstitial edema. Bilateral pleural effusion. Patchy airspace disease of right middle lobe with dependent atelectasis of bilateral lungs 10/25 CXR - cardiomegaly with intesistial edema and pleural effusions 10/22 CXR - pulmonary intersitital edema, small left pleural effusion. bibasilar atelectasis vs consolidation 10/20 CXR - consistent with CHF 10/20 TTE LVEF 35-40% akinesis of apicalinferior myocardium, hypokinesis fo basal midinferior myocardium. severe dilation of left atrium, moderate dilation of right atrium. mild to moderate regurgitation of mitral valve mild to moderate regurgitation of aortic valve moderate pulmonary artery hypertension 10/19 CXR - right upper lobe airspace disease, interstitial edema Nutrition: pureed nectar thickened Impression: 69 yo M with CHF and COPD admitted on 10/16 with respiratory distress after recent hospitalization at [facility] for CHF exacerbation. Found to have pulmonary edema. Efforts at diuresis limited by rising creatinine secondary to cardiorenal syndrome. Respiratory function had been improving despite continued presence of pulmonary edema and pleural effusion on CXR. Renal function improved after lasix held for several days. Digoxin held x 2 days for sinus pauses. On 10/24 developed increased confusion and hypoxia. Started on Precedex for confusion and vapotherm. DIg given 10/25 had sinus pauses overnight. lasix increased to 80 mg IV 12H on 10/27; on precedex; will try to wean off today. anxious and having PTSD flashbacks. On ativan and morphine Plan: Hospital Diagnoses: #1: Acute on chronic systolic CHF #2: Acute hypoxic respiratory failure #3: Delirium- sundowning #4: Cardiorenal syndrome Cardiovascular: (1) Acute on chronic systolic CHF; (2) Afib with RVR, now rate controlled; (3) prolonged QTc; (4) Essential HTN: (5) PVD; (6) CAD with angina and prior MA; (7) hx of hypertrophic cardiomyopathy with cardiomegaly; (8) hx of carotid stenosis; (9) Hyperlipidemia; (10) elevated troponin; (11) hx of aneurysm; (12) chronic Essential HTN -- HR 58-77 -- SBP 82-110 -- Telemetry -- TTE, 10/20: LVEF 35-40% akinesis of apicalinferior myocardium, hypokinesis fo basal midinferior myocardium. severe dilation of left atrium, moderate dilation of right atrium. 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 finisher, even while having heart failure patient never had LE swelling and is always thirsty and usually requires high dose of lasix; usually would require>100; at home he is taking lasix 120 mg in morning and 80 in the evening --continue diuresing; his creatinine is 1.3 Home meds: Lasix, Atorvastatin, plavix, amlodipine, digoxin, metoprolol, eliquis Pulmonary: (1) Acute on chronic hypoxic respiratory failure, improving; (2) Pulmonary edema, cardiac cause, stable; (3) Obstructive sleep apnea; (4) COPD; ( 5) chronic asthma; (6) hx of seasonal allergies -- RR 7-24 -- sats 90-100; on Bipap -- CXR, 10/28: cardiomegaly with intesistial edema and airspace opacification on right upper lung --CT chest as above -- ABG(10/29): pH 7.41, pCO2 52, pO2 56, HCO3 30, BE 6.9, -- PRN Duonebs -- Tiotropium bromide/olodaterol & Mometasone --lasix decreased to 80 mg daily -- pulmonary toilet --speech therapy- puremario, nectar; low suspicion of aspiration Home meds: albuterol, tiotropium bromide/olodaterol, mometasone, home O2 3.5 to 4L NC Gastrointestinal: (1) elevated LFTs secondary to pulmonary congestion, improved ; (2) hx of irritable bowel syndrome; (3) GERD -- LFTs, 10/29 Tbili 0.8 from 1.2 ALK 120 from 158 AST 26 from 92 ALT 72 from 171 --likely congestive; resolved -- diet: pureed, nectar thickened -- bowel regimen: None -- ulcer prophylaxis: Protonix -- PRN zofran --prn loperamide; chronic diarrhea d/t IBS --patient was having abdominal pain, diarrhea and leucocytosis yesterday; so sent C. diff-pending Home meds: Magox, simethicone, protonix, immodium Endocrine: (1) Diabetes mellitus type 2 -- monitor BGs -- SSI -- Prednisone tapered off --total insulin requirement on 10/28 is 18; so starting insulin lantus 12 U Home meds: Metformin, Lantus Renal: (1) Acute on chronic stage 3 renal failure, improving; (2) Cardiorenal syndrome; (3) Hyperkalemia; (4) BPH -- UOP: 65 ml /hr -- Cr 1.3 from 1.15 -- Lytes Na 149 from 147; likely because of free water loss; will decrease his lasix from 12 hrly to daily and trend Na. K 3.9 Ca 7.7, on replacement Mag 2.0 Phos 5.2 10/26 -- Currently on lasix; need to monitor BMP closely --Uric acis 8.8 from 10 Home meds: Lasix, potassium chloride, flomax Infectious disease: No acute issues -- Tmax 98.1 -- WBC 5.4 from 8.5 -- Micro 10/28 UA equivocal; pending culture 10/19 UA negative Flu A&B negative -- ABX Keflex x 6 wks for olecranon bursitis (diag [employer]) Home meds: Keflex Neurologic: (1) Acute encephalopathy/delirium (2) Chronic pain; (3) Anxiety and depression; (4) hx of PTSD; (5) hx of CVA and TIA; (6) peripheral neuropathy ; (7) hx of substance abuse -- Trileptal -- Precedex gtt for delirium-d/c on 10/27 Home meds: gabapentin, buspirone, zoloft, ativan, norco, trileptal Hematological: (1) chronic anemia -- Hgb 7.2 from 11.2; will repeat this again -- Plt 71 from 129; likely lab error, will repeat this -- DVT prophylaxis: therapeutic lovenox -- Plavix Home meds: plavix, cholecalciferol, eliquis Metabolic: No acute issues Home meds: None Other: No acute issues Home meds: None Deep vein thrombosis prophylaxis: on therapeutic lovenox Dietary: Protonix Condition: serious Prognosis: guarded Code status: full Disposition:continue ICU Care updated at bedside regarding interval events and plan of care Cumulative time spent in the care of this patient (excluding any procedure time) : at least 50 minutes. Patient care included clinical interview (with patient and/or family), bedside exam of the patient, review of labs, x-rays, and other ancillary data, coordination of (respiratory, nursing care, review of patient's records, discussion regarding patients management with involved consultants, primary physician, pharmacists, and other healthcare personnel (dietary, case management , physical/occupational therapy etc.) Critical Care Time: 50 <Melissa Soria - Last Filed: 10/30/19 18:40> Vital Signs: Temp Pulse Resp BP SpO2 FiO2 99.3 F 90 17 103/47 97 60 10/30/19 18:15 10/30/19 18:15 10/30/19 18:15 10/30/19 18:15 10/30/19 18:15 10/29 04:00 Physical Exam: Gen: HEENT: Lungs: Cardiac: Abdomen: Extremities: Neuro: Fluid Balance (Past 24 Hours): I= O= Net Intake & Output 10/28/19 10/29/19 10/30/19 10/31/19 06:59 06:59 06:59 06:59 Intake Total 2562 802 324.2 480 Output Total 3200 3144 1580 750 Balance -638 -2342 -1255.8 -270 Weight 207 lb 4.8 oz 205 lb 11.06 oz 207 lb 12.814 oz Intake: IV Fluids 30 22 51 ABX - CEFTRIAXONE 30 51 NS 22 IVPB 60 120 ABX - CEFTRIAXONE 60 60 Magnesium 60 Medicated IV 73.2 Precedex 73.2 Oral 2472 660 200 480 Output: Gaviria 3200 3144 1580 750 Other: # Bowel Movements 1 Estimated Stool Amount Medium Labs: Laboratory Results - last 24 hr 10/29/19 10/30/19 10/30/19 21:42 01:09 04:14 WBC RBC Hgb Hct MCV MCH MCHC RDW Plt Count MPV Sodium Potassium Chloride Carbon Dioxide Anion Gap BUN Creatinine Est GFR ( Amer) Est GFR (Non-Af Amer) BUN/Creatinine Ratio Glucose POC Glucose (mg/dL) 236 H 193 H 120 H Calcium Magnesium Ammonia 10/30/19 10/30/19 10/30/19 05:00 05:00 05:00 WBC 5.4 RBC 2.91 L Hgb 7.2 L Hct 24 L MCV 81 MCH 25 L MCHC 31 RDW 20 H Plt Count 71 L D MPV 9.5 Sodium 149 H Potassium 3.9 Chloride 112 H Carbon Dioxide 35 H Anion Gap 2 BUN 28 H Creatinine 1.30 H Est GFR ( Amer) 66.0 Est GFR (Non-Af Amer) 54.6 BUN/Creatinine Ratio 21.5 H Glucose 78 POC Glucose (mg/dL) Calcium 7.7 L Magnesium 2.0 Ammonia 45 10/30/19 10/30/19 10/30/19 09:02 12:32 17:52 WBC RBC Hgb Hct MCV MCH MCHC RDW Plt Count MPV Sodium Potassium Chloride Carbon Dioxide Anion Gap BUN Creatinine Est GFR ( Amer) Est GFR (Non-Af Amer) BUN/Creatinine Ratio Glucose POC Glucose (mg/dL) 81 154 H 144 H Calcium Magnesium Ammonia 10/30/19 18:10 WBC 11.9 H RBC 4.26 Hgb 10.4 L Hct 34 L MCV 80 MCH 25 L MCHC 31 RDW 20 H Plt Count 106 L MPV 9.0 Sodium Potassium Chloride Carbon Dioxide Anion Gap BUN Creatinine Est GFR ( Amer) Est GFR (Non-Af Amer) BUN/Creatinine Ratio Glucose POC Glucose (mg/dL) Calcium Magnesium Ammonia Plan: Patient was transferred to ICU for resp distress, suspect anxiety being major component. Pt has improved with BiPAP. Pt currently on O2. updated at bedside. Will continue to monitor in ICU. This service has been performed in part by a resident under the direction of a teaching physician. I, Sai Soria, performed the service, or was physically present during the critical, or raymundo portions of the service, furnished by the resident. I participated in the management of the patient.
[2019-10-30] MEDS: cefTRIAXone(*) 1 GM in NS 0.9% 50 ML* 50 ML IVPB SCH (13:35)
[2019-10-30] MEDS ORDERED: Lorazepam PYXIS KEY ONE (17:37)
[2019-10-30] MEDS: LORazepam INJ* 2 MG/ML 1 ML VIAL IV PUSH PRN (17:42)
[2019-10-30] MEDS: Clopidogrel TAB* 75 MG PO SCH (17:43)
[2019-10-30] MEDS: Nicotine PATCH 14 MG/24 HR* PATCH TRANSDERM SCH (17:44)
[2019-10-30] MEDS: OXcarbazepine TAB(*) 300 MG PO SCH ×2 (17:44→21:10)
[2019-10-30] MEDS: Atorvastatin* 20 MG TAB PO SCH (17:45)
[2019-10-30] MEDS: Dexmedetomidine* 1,000 MCG in NS 0.9% 250 ML* 240 ML IV SCH (17:46)
[2019-10-30] MEDS: Gabapentin CAP(*) 300 MG PO SCH (17:46)
[2019-10-30 18:21] LABS: Hematocrit 34 % (42-52); Hemoglobin 10.4 g/dL (14.0-18.0); Mean Corpuscular HGB Conc 31 g/dL (31-36); Mean Corpuscular Hemoglobin 25 pg (27-31); Mean Corpuscular Volume 80 fL (80-94); Platelet Count 106 10^3/uL (150-450); Red Blood Count 4.26 10^6 /uL (4.18-5.48); Red Cell Distribution Width 20 % (10-15); White Blood Count 11.9 10^3/uL (3.5-10.8)
[2019-10-30] MEDS: Nicotine Patch Removal NOTE FOLLOW UP SCH (21:12)
[2019-10-31] MEDS: Insulin LISPRO* 1 UNITS UNIT SUBCUT SCH ×6 (01:09→21:56)
[2019-10-31] MEDS: LORazepam INJ* 2 MG/ML 1 ML VIAL IV PUSH PRN (01:38)
[2019-10-31] MEDS: Morphine INJ* 2 MG/ML 1 ML SYRINGE (TWO MG - NEW SYRINGE VERSION) IV PRN ×3 (01:42→20:01)
[2019-10-31] MEDS: Metoprolol Tartrate IV* 1 MG/ML 5 ML VIAL IV SCH ×4 (01:56→17:46)
[2019-10-31] MEDS: Dexmedetomidine* 1,000 MCG in NS 0.9% 250 ML* 240 ML IV SCH (02:04)
[2019-10-31] MEDS ORDERED: Furosemide IV* 10 MG/ML 10 ML VIAL (100 MG) IV ONE ×2 (03:24→04:05)
--- NOTE | 2019-10-31 03:26 | PN ---
Hospitalist Progress Note Date of Service: 10/31/19 Cross Cover Note 69M with CAD, Afib, PTSD, COPD and HFrEF EF 35%, transferred back to the ICU with anxiety and resp distress, hypercarbic resp failure, pt has been on continuous BiPAP -Called to bedside, desatting to 84% on BiPAP -Exam shows blt crackles and rhonchi -Lasix 80mg IV x 1 now at 3:30AM, AM labs in place, retime morning lasix to 2PM -Last CXR reveiwed, possible infiltrate, cardiomegaly and pulm congestion, on appropriate abx
[2019-10-31] MEDS ORDERED: Succinylcholine* 20 MG/ML 10 ML VIAL ONE (03:36)
[2019-10-31] MEDS ORDERED: Etomidate* 2 MG/ML 20 ML VIAL (40 MG) ONE (03:45)
[2019-10-31] MEDS ORDERED: Propofol* 100 ML ONE (03:46)
[2019-10-31] MEDS ORDERED: Propofol* 100 ML IV SCH (04:00)
[2019-10-31] MEDS ORDERED: Furosemide IV* 10 MG/ML 10 ML VIAL (100 MG) ONE (04:01)
[2019-10-31] MEDS ORDERED: Norepinephrine 16MCG/ML IVPRE* 4,000 MCG/250 ML BAG IV ONE (04:47)
[2019-10-31] MEDS: Cefepime 1 GM in Dextrose(*) 1 GM/50 ML BAG IV SCH ×2 (04:59→17:05)
[2019-10-31] MEDS ORDERED: Norepinephrine 16MCG/ML IVPRE* 4,000 MCG/250 ML BAG IV SCH (05:00)
[2019-10-31] MEDS ORDERED: Vancomycin per Pharmacy* NOTE FOLLOW UP SCH (05:00)
[2019-10-31] MEDS ORDERED: Vancomycin(*) 1,500 MG in NS 0.9% 250 ML* 250 ML IVPB ONE (05:30)
[2019-10-31] MEDS: Chlorhexidine MOUTHWASH 0.12%* 15 ML UDC TOPICAL SCH ×5 (05:37→21:55)
[2019-10-31 05:39] LABS: Hematocrit 35 % (42-52); Hemoglobin 10.7 g/dL (14.0-18.0); Mean Corpuscular HGB Conc 30 g/dL (31-36); Mean Corpuscular Hemoglobin 24 pg (27-31); Mean Corpuscular Volume 81 fL (80-94); Mean Platelet Volume 8.8 fL (7.4-10.4); Platelet Count 134 10^3/uL (150-450); Red Blood Count 4.39 10^6 /uL (4.18-5.48); Red Cell Distribution Width 19 % (10-15); White Blood Count 15.5 10^3/uL (3.5-10.8)
[2019-10-31 05:49] LABS: BUN/Creatinine Ratio 16.6 (8-20); Calcium 8.2 mg/dL (8.6-10.3); EGFR African American 45.1 (>60); EGFR Non-African American 37.2 (>60); Magnesium 1.9 mg/dL (1.9-2.7); Potassium 3.9 mmol/L (3.5-5.0)
[2019-10-31 06:05] LABS: Polychromasia 1+
[2019-10-31 06:06] LABS: ABS Basophils 0.1 10^3/ul (0-0.2); ABS Lymphocytes 0.2 10^3/ul (1.0-4.8); ABS Monocytes 0.6 10^3/ul (0-0.8); ABS Neutrophils 14.6 10^3/ul (1.5-7.7); Eosinophil % 0.2 %; Lymphocyte % 1.4 %; Nucleated Red Blood Cells % 0.1
[2019-10-31] MEDS: OXcarbazepine TAB(*) 300 MG PO SCH ×2 (08:49→21:55)
[2019-10-31] MEDS: busPIRone TAB* 10 MG PO SCH ×3 (08:49→21:56)
[2019-10-31] MEDS: Sertraline* 100 MG TAB PO SCH (08:49)
[2019-10-31] MEDS: Clopidogrel TAB* 75 MG PO SCH (08:49)
[2019-10-31] MEDS: Pantoprazole IV* 40 MG IV SCH (08:50)
[2019-10-31] MEDS: Nicotine PATCH 14 MG/24 HR* PATCH TRANSDERM SCH (08:51)
[2019-10-31] MEDS ORDERED: Famotidine TAB* 20 MG PO SCH (09:00)
[2019-10-31] MEDS ORDERED: Furosemide IV* 10 MG/ML 10 ML VIAL (100 MG) IV SCH (09:00)
--- NOTE | 2019-10-31 10:12 | PN ---
Date of Service: 10/31/19 - [facility] note Critical Care Services: Pt seen and examined at bedside. Overnight events noted. Plan of care discussed with bedside RN Pt is 69 yo M with CAD, Afib, PTSD, COPD and CHF presents to the ED on 10/16 with respiratory distress. Per patient he had 2 days of shortness of breath, worsening. Minimal relief from inhaler. [facility] for CHF exacerbation. 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 Patient was also admitted to [facility] in May 2019 for resp distress requiring intubation, was extubated after 36hrs. Patient was being treated for acute CHF exacerbation. Pt required vapotherm, was monitored in ICU, transferred to medical floor on 10/29. Pt has h/o severe anxiety and PTSD at baseline. He is also on BiPAP at night. He was noted to be in distress on floor and was transferred back to ICU in <24 hrs. Pt was stabilized with BiPAP and O2 at 10L. Pt continued to have episodes of anxiety. O/n pt had significant resp distress and desaturation and was intubated for hypoxic resp failure. He has not responded to 120mg of Lasix. Pt has required 100%FiO2 and PEEP of 12. Pt is currently on 80% FiO2. Pt with low grade fever this am. Pt requiring vasopressors. Active Medications Generic Name Dose Route Start Last Admin Trade Name Freq PRN Reason Stop Dose Admin Hydrocodone Bitart/Acetaminophen 1 tab 10/27/19 13:49 10/28/19 20:49 Burton 5-325 Tab* PO 1 tab Q6H PRN Administration PAIN - MODERATE Albuterol/Ipratropium 1 neb 10/16/19 22:45 10/17/19 13:43 Duoneb (Albuterol 2.5 Mg/Ipratropium 0.5 Mg) INH 1 neb Q4H PRN Administration SOB/WHEEZING Atorvastatin Calcium 20 mg 10/27/19 17:00 10/30/19 17:45 Lipitor* PO Not Given 1700 STELLA Buspirone HCl 10 mg 10/27/19 14:00 10/31/19 08:49 Buspar Tab* PO 10 mg TID STELLA Administration Chlorhexidine Gluconate 15 ml 10/31/19 04:00 10/31/19 08:49 Peridex Mouth Wash 0.12%* TOPICAL 15 ml Q4H STELLA Administration Clopidogrel Bisulfate 75 mg 10/17/19 09:00 10/31/19 08:49 Plavix Tab* PO 75 mg DAILY STELLA Administration Dextrose 25 ml 10/16/19 18:59 10/20/19 08:48 Dextrose 50% Vial 50 Ml* IV PUSH 25 ml .FOR FS < 60 - SS PRN Administration FS < 60 Docusate Sodium 100 mg 10/19/19 10:55 10/26/19 17:49 Colace Cap* PO 100 mg DAILY PRN Administration CONSTIPATION Enoxaparin Sodium 100 mg 10/25/19 11:00 10/30/19 21:10 Lovenox(*) SUBCUT 100 mg Q12H STELLA Administration Furosemide 80 mg 10/31/19 14:00 Lasix Iv* IV DAILY [facility] Gabapentin 600 mg 10/27/19 18:00 10/30/19 17:46 Neurontin Cap(*) PO Not Given QPM [facility] Hydralazine HCl 10 mg 10/28/19 16:58 10/28/19 17:00 Apresoline Iv* IV SLOW PU 10 mg Q6H PRN Administration SBP>160 Cefepime HCl 1 gm in 50 mls @ 100 mls/hr 10/31/19 05:00 10/31/19 04:59 Maxipime 1 Gm In Dextrose Duplex (*) IV 100 mls/hr Q12H STELLA Administration Norepinephrine Bitartrate 4,000 mcg in 250 mls @ 0 mls/hr 10/31/19 08:08 Levophed 16 Mcg/Ml Premix* IV .PER PROTOCOL STELLA Protocol Per Protocol Propofol 100 mls @ 2.76 mls/hr 10/31/19 08:09 Diprivan* IV .PER PROTOCOL [facility] Protocol 5 MCG/KG/MIN Insulin Glargine 12 units 10/29/19 12:00 10/30/19 12:48 Lantus(*) SUBCUT 12 unit Q24H STELLA Administration Insulin Human Lispro 0 units 10/21/19 00:00 10/31/19 08:16 Humalog* SUBCUT Not Given Q4H [facility] Protocol Loperamide HCl 2 mg 10/28/19 14:03 10/28/19 14:28 Imodium Cap* PO 2 mg Q6H PRN Administration DIARRHEA Lorazepam 0.5 mg 10/30/19 11:34 10/31/19 01:38 Ativan Inj* IV PUSH 0.5 mg Q4H PRN Administration ANXIETY Metoprolol Tartrate 5 mg 10/25/19 12:00 10/31/19 06:05 Lopressor Iv* IV Not Given Q6H [facility] Miscellaneous 1 ea 10/30/19 11:34 Ativan Pyxis [place] N/A .ATIVAN IV [place] PRN PYXIS [place] Mometasone Furoate/Formoterol Fumar 2 puff 10/22/19 10:00 10/30/19 21:10 Dulera 200/5 Mdi* INH Not Given BID [facility] Morphine Sulfate 2 mg 10/29/19 15:50 10/31/19 01:42 Morphine Inj (Syringe))* IV 2 mg Q2H PRN Administration severe pain or air hunger Nicotine 1 patch 10/26/19 11:00 10/31/19 08:51 Nicotine Patch 14 Mg/24 Hr* TRANSDERM Not Given DAILY [facility] Pto: Miconazole 1 dose 10/22/19 21:00 10/30/19 21:12 Nitrate 2% Topical TOPICAL 1 dose Powder BID STELLA Administration Ondansetron HCl 4 mg 10/16/19 18:43 10/21/19 13:15 Zofran Inj* IV 4 mg Q6H PRN Administration NAUSEA Oxcarbazepine 300 mg 10/16/19 21:00 10/31/19 08:49 Trileptal Tab(*) PO 300 mg BID STELLA Administration Pantoprazole Sodium 40 mg 10/26/19 09:00 10/31/19 08:50 Protonix Iv* IV 40 mg Q24H [facility] Administration Pharmacy Consult 1 note 10/31/19 05:00 Vancomycin Per Pharmacy* FOLLOW UP .VANC PER PHARMACY [facility] Protocol Pharmacy Profile Note 1 note 10/26/19 21:00 10/30/19 21:12 Nicotine Patch Removal Note* FOLLOW UP 1 note 2100 STELLA Administration Sertraline HCl 100 mg 10/27/19 11:00 10/31/19 08:49 Zoloft* PO 100 mg DAILY [facility] Administration Tiotropium Glennie/Olodaterol 2 puff 10/22/19 09:00 10/30/19 13:17 Stiolto Respimat Inh [place] (60 Puff) INH Not Given DAILY [facility] Vital Signs: Temp Pulse Resp BP SpO2 FiO2 100.2 F 86 20 98/63 99 90 10/31/19 09:00 10/31/19 09:00 10/31/19 09:00 10/31/19 09:00 10/31/19 09:00 10/31 07:53 Physical Exam: Gen: Pt is intubated and sedated, RASS scale -2 HEENT: ETT+ Lungs: Diminished air entry at bases, L>R Cardiac: S1, S2+ Abdomen: Soft, BS diminished Extremities: Moves to painful stimuli Neuro: Sedated, limited exam Skin: Erythema of LE Fluid Balance (Past 24 Hours): I= 1102 O= 1102 Net 0 Intake & Output 10/29/19 10/30/19 10/31/19 11/01/19 06:59 06:59 06:59 06:59 Intake Total 802 324.2 1102.3 90 Output Total 3144 1580 1120 255 Balance -2342 -1255.8 -17.7 -165 Weight 205 lb 11.06 oz 207 lb 12.814 oz 202 lb 13.204 oz Intake: IV Fluids 22 51 298 ABX - CEFTRIAXONE 51 150 NS 22 148 IVPB 120 ABX - CEFTRIAXONE 60 Magnesium 60 Medicated IV 73.2 54.3 CC - Norepinephrine/ 34.5 Levophed CC - Propofol/Diprivan 19.8 Precedex 73.2 Oral 660 200 750 Tube Feeding Flush Amount 90 Output: Gaviria 3144 1580 1120 255 Other: Date of Last Bowel 10/30/2019 Movement # Bowel Movements 1 Estimated Stool Amount Large Labs: Laboratory Results - last 24 hr 10/30/19 10/30/19 10/30/19 09:02 12:32 17:52 WBC RBC Hgb Hct MCV MCH MCHC RDW Plt Count MPV Neut % (Auto) Lymph % (Auto) Cotton % (Auto) Eos % (Auto) Baso % (Auto) Absolute Neuts (auto) Absolute Lymphs (auto) Absolute Monos (auto) Absolute Eos (auto) Absolute Basos (auto) Absolute Nucleated RBC Nucleated RBC % Polychromasia Hypochromasia Basophilic Stippling Anisocytosis Macrocytosis Patient Temperature ABG pH ABG pH (Temp Correct) ABG pCO2 ABG pCO2 (Temp Corrct ABG pO2 ABG pO2 (Temp Correct ABG HCO3 ABG O2 Saturation ABG Base Excess Respiration Rate O2 Delivery Device Ventilator Type Vent Mode FiO2 Inspiratory Time PEEP Pressure Support Pressure Control EPAP IPAP BiPAP Sodium Potassium Chloride Carbon Dioxide Anion Gap BUN Creatinine Est GFR ( Amer) Est GFR (Non-Af Amer) BUN/Creatinine Ratio Glucose POC Glucose (mg/dL) 81 154 H 144 H Lactic Acid Calcium Magnesium 10/30/19 10/30/19 10/31/19 18:10 21:03 00:56 WBC 11.9 H RBC 4.26 Hgb 10.4 L Hct 34 L MCV 80 MCH 25 L MCHC 31 RDW 20 H Plt Count 106 L MPV 9.0 Neut % (Auto) Lymph % (Auto) Cotton % (Auto) Eos % (Auto) Baso % (Auto) Absolute Neuts (auto) Absolute Lymphs (auto) Absolute Monos (auto) Absolute Eos (auto) Absolute Basos (auto) Absolute Nucleated RBC Nucleated RBC % Polychromasia Hypochromasia Basophilic Stippling Anisocytosis Macrocytosis Patient Temperature ABG pH ABG pH (Temp Correct) ABG pCO2 ABG pCO2 (Temp Corrct ABG pO2 ABG pO2 (Temp Correct ABG HCO3 ABG O2 Saturation ABG Base Excess Respiration Rate O2 Delivery Device Ventilator Type Vent Mode FiO2 Inspiratory Time PEEP Pressure Support Pressure Control EPAP IPAP BiPAP Sodium Potassium Chloride Carbon Dioxide Anion Gap BUN Creatinine Est GFR ( Amer) Est GFR (Non-Af Amer) BUN/Creatinine Ratio Glucose POC Glucose (mg/dL) 105 H 142 H Lactic Acid Calcium Magnesium 10/31/19 10/31/19 10/31/19 04:38 05:24 05:24 WBC 15.5 H RBC 4.39 Hgb 10.7 L Hct 35 L MCV 81 MCH 24 L MCHC 30 L RDW 19 H Plt Count 134 L MPV 8.8 Neut % (Auto) 94.1 Lymph % (Auto) 1.4 Cotton % (Auto) 3.6 Eos % (Auto) 0.2 Baso % (Auto) 0.7 Absolute Neuts (auto) 14.6 H Absolute Lymphs (auto) 0.2 L Absolute Monos (auto) 0.6 Absolute Eos (auto) 0.0 Absolute Basos (auto) 0.1 Absolute Nucleated RBC 0.0 Nucleated RBC % 0.1 Polychromasia 1+ Hypochromasia 1+ Basophilic Stippling 1+ Anisocytosis 2+ Macrocytosis 1+ Patient Temperature Not Reportable ABG pH 7.38 ABG pH (Temp Correct) Not Reportable ABG pCO2 54 H ABG pCO2 (Temp Corrct Not Reportable ABG pO2 69 L ABG pO2 (Temp Correct Not Reportable ABG HCO3 28.9 ABG O2 Saturation 95.0 ABG Base Excess 5.3 H Respiration Rate 20 O2 Delivery Device vent Ventilator Type Not Reportable Vent Mode pcv FiO2 100 Inspiratory Time 0.6 PEEP 12 Pressure Support Not Reportable Pressure Control 22 EPAP Not Reportable IPAP Not Reportable BiPAP Not Reportable Sodium 147 H Potassium 3.9 Chloride 109 Carbon Dioxide 33 H Anion Gap 5 BUN 30 H Creatinine 1.81 H Est GFR ( Amer) 45.1 Est GFR (Non-Af Amer) 37.2 BUN/Creatinine Ratio 16.6 Glucose 117 H POC Glucose (mg/dL) Lactic Acid Calcium 8.2 L Magnesium 1.9 10/31/19 10/31/19 05:24 05:24 WBC RBC Hgb Hct MCV MCH MCHC RDW Plt Count MPV Neut % (Auto) Lymph % (Auto) Cotton % (Auto) Eos % (Auto) Baso % (Auto) Absolute Neuts (auto) Absolute Lymphs (auto) Absolute Monos (auto) Absolute Eos (auto) Absolute Basos (auto) Absolute Nucleated RBC Nucleated RBC % Polychromasia Hypochromasia Basophilic Stippling Anisocytosis Macrocytosis Patient Temperature ABG pH ABG pH (Temp Correct) ABG pCO2 ABG pCO2 (Temp Corrct ABG pO2 ABG pO2 (Temp Correct ABG HCO3 ABG O2 Saturation ABG Base Excess Respiration Rate O2 Delivery Device Ventilator Type Vent Mode FiO2 Inspiratory Time PEEP Pressure Support Pressure Control EPAP IPAP BiPAP Sodium Potassium Chloride Carbon Dioxide Anion Gap BUN Creatinine Est GFR ( Amer) Est GFR (Non-Af Amer) BUN/Creatinine Ratio Glucose POC Glucose (mg/dL) 131 H Lactic Acid 1.5 Calcium Magnesium Studies: CXR: ETT in place. Progression of air space opacities, worse on left side Nutrition: Tube feeds started Impression: 69 y o m with h/o CAD, Afib, PTSD, COPD and CHF a/w acute CHF exacerbation. Pt with complicated course recently with multiple hospitalizations- in May for resp failure requiring intubation to hosp in [place], [facility] for CHF exacerbation, was admitted to hospital in [place] for o/n observation. Pt on chronic BiPAP and O2 at 3-4 L at home. Has been on Keflex as outpatient for left elbow osteomyelitis. Pt with acute hypoxic and hypercapnic resp failure 2/2 CHF and COPD exacerbation and possible component of PNA. Pt is currently intubated on mechanical ventilator with 80%FiO2 and PEEP of 12 with saturations around 99%. 1. Acute on chronic hypoxic and hypercapnic resp failure 2. Acute systolic CHF exacerbation 3. PNA- Aspiration versus HCAP 4. Severe PTSD and anxiety 5. Severe COPD 6. Chronic OM 7. Leucocytosis 8. Hypernatremia 9. Renal failure 10. Hypotension 2/2 cardiogenic versus septic shock versus medication and PEEP induced requiring vasopressors Plan: Neuro: Pt is intubated and sedated. Will perform sedation vacation as per protocol. Will maintain RASS<-3. Keep HOB elevated at 30 degrees. Pt with anxiety/PTSD, c/w meds. Resp: Pt with acute on chronic hypoxic and hypercapnic resp failure requiring intubation. Pt with progression of air space opacities on CXR from this am, he didnot respond to Lasix. Has low grade fevers. Also suspect PNA, no witnessed aspiration event however pt with weak cough reflex and suspect mucus plugging. No wheeze noted. Will c/w metanebs and send sputum cx . c/w bronchodilators. Lower FiO2 as toelrated. Pt with recurrent hospitalizations for resp failure recently, suspect progression of underlying pulmonary disease. Pt to have trial of intubation and monitoring for 48hrs as per pt`s with no further escalation or reintubation in future. Titrate FiO2 as toelrated. Will lower PEEP when FiO2 requirements acceptable. Will obtain CT chest, do not suspect PE given alternative diagnosis. CVS: Pt with CAD, severe sys CHF, A.fib. Pt on Plavix and Lovenox. A.fib rate controlled. Requiring vasopressors. Has PICC line for pressor administration. Titrate Levophed to MAP of 65. ID: Low grade fever, has olecranon bursitis and on Keflex at home, was changed to Ceftriaxone as he was not able to take po. Abx broadened to Cefepime last night given concern with HCAP/asp PNA. Will obtain sputum cx, obtain bl cx if fever>100.4. Renal: Renal failure, acute versus chronic. Hypernatremia 2/2 Lasix, monitor renal function closely. Endo: On Insulin, BS stable. Haem: Anemia of chronic disease, leucocytosis, thrombocytopenia- Stable Musculoskeletal: Olecranon bursits on abx. Frequent turning and positioning to prevent bedsores. Psych/Social: updated at bedside DVT px: On Lovenox Pt is DNR, no further intubations in future. to consider terminal extubation if no improvement in 48 hrs. Critical Care Time: 30 min
[2019-10-31] MEDS: Enoxaparin(*) 100 MG/ML SYR SUBCUT SCH ×2 (11:05→21:55)
[2019-10-31] MEDS: Tiotropium Brom/Olodaterol MDI INH SCH (11:06)
[2019-10-31] MEDS: Propofol* 100 ML IV SCH ×2 (11:07→20:18)
[2019-10-31] MEDS: Mometasone/Formoter 200/5 MDI INH SCH (11:07)
[2019-10-31] MEDS: Norepinephrine 16MCG/ML IVPRE* 4,000 MCG/250 ML BAG IV SCH ×2 (11:32→20:20)
[2019-10-31] MEDS: Insulin GLARGINE(*) 1 UNITS UNIT SUBCUT SCH (12:00)
[2019-10-31] MEDS: MICONAZOLE NITRATE 2% TOPICAL SCH ×2 (14:05→21:59)
[2019-10-31] MEDS: Furosemide IV* 10 MG/ML 10 ML VIAL (100 MG) IV SCH (14:15)
[2019-10-31] MEDS ORDERED: Acetaminophen TAB* 325 MG PO PRN (15:46)
[2019-10-31] MEDS ORDERED: Acetaminophen ADULT LIQ* 650 MG/20.3 ML UDC PO PRN (16:12)
[2019-10-31] MEDS: Atorvastatin* 20 MG TAB PO SCH (16:50)
[2019-10-31] MEDS: Gabapentin CAP(*) 300 MG PO SCH (16:50)
[2019-10-31] MEDS: Vancomycin(*) 750 MG in NS 0.9% 250 ML* 250 ML IVPB SCH (17:46)
[2019-10-31] MEDS: Nicotine Patch Removal NOTE FOLLOW UP SCH (21:59)
[2019-11-01] MEDS: Insulin LISPRO* 1 UNITS UNIT SUBCUT SCH ×7 (01:18→23:55)
[2019-11-01] MEDS: Metoprolol Tartrate IV* 1 MG/ML 5 ML VIAL IV SCH ×4 (01:18→20:02)
[2019-11-01] MEDS: Chlorhexidine MOUTHWASH 0.12%* 15 ML UDC TOPICAL SCH ×7 (01:18→23:55)
[2019-11-01] MEDS: Propofol* 100 ML IV SCH ×3 (03:04→19:26)
[2019-11-01 05:18] LABS: BUN/Creatinine Ratio 18.2 (8-20); Calcium 8.1 mg/dL (8.6-10.3); EGFR African American 42.1 (>60); EGFR Non-African American 34.8 (>60)
[2019-11-01] MEDS: Cefepime 1 GM in Dextrose(*) 1 GM/50 ML BAG IV SCH ×2 (05:35→17:55)
[2019-11-01] MEDS: Vancomycin(*) 750 MG in NS 0.9% 250 ML* 250 ML IVPB SCH ×2 (05:36→18:34)
[2019-11-01 05:50] LABS: Hematocrit 33 % (42-52); Hemoglobin 9.8 g/dL (14.0-18.0); Mean Corpuscular HGB Conc 30 g/dL (31-36); Mean Corpuscular Hemoglobin 24 pg (27-31); Mean Corpuscular Volume 80 fL (80-94); Mean Platelet Volume 9.3 fL (7.4-10.4); Platelet Count 83 10^3/uL (150-450); Red Blood Count 4.07 10^6 /uL (4.18-5.48); Red Cell Distribution Width 20 % (10-15); White Blood Count 18.2 10^3/uL (3.5-10.8)
[2019-11-01 05:53] LABS: Polychromasia 1+
[2019-11-01] MEDS: Mometasone/Formoter 200/5 MDI INH SCH ×3 (06:35→19:20)
[2019-11-01] MEDS: Acetaminophen ADULT LIQ* 650 MG/20.3 ML UDC PO PRN (06:49)
[2019-11-01] MEDS: Tiotropium Brom/Olodaterol MDI INH SCH (07:00)
[2019-11-01] MEDS ORDERED: Albumin Human 25%* 25 GM/100 ML BTL IV SCH (09:00)
[2019-11-01] MEDS: busPIRone TAB* 10 MG PO SCH ×3 (09:46→20:40)
[2019-11-01] MEDS: Clopidogrel TAB* 75 MG PO SCH (09:48)
[2019-11-01] MEDS: Furosemide IV* 10 MG/ML 10 ML VIAL (100 MG) IV SCH (09:48)
[2019-11-01] MEDS: OXcarbazepine TAB(*) 300 MG PO SCH ×2 (09:49→20:40)
[2019-11-01] MEDS: Pantoprazole IV* 40 MG IV SCH (09:49)
[2019-11-01] MEDS: Sertraline* 100 MG TAB PO SCH (09:50)
[2019-11-01] MEDS: MICONAZOLE NITRATE 2% TOPICAL SCH ×2 (11:49→20:40)
[2019-11-01] MEDS: Enoxaparin(*) 100 MG/ML SYR SUBCUT SCH ×2 (12:18→23:55)
--- NOTE | 2019-11-01 12:21 | PN ---
Date of Service: 11/01/19 - [facility] note Critical Care Services: Pt seen and examined at bedside. Overnight events noted. Plan of care discussed with bedside RN Pt is 69 yo M with CAD, Afib, PTSD, COPD and CHF presents to the ED on 10/16 with respiratory distress. Per patient he had 2 days of shortness of breath, worsening. Minimal relief from inhaler. [facility] for CHF exacerbation. 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 Patient was also admitted to [facility] in May 2019 for resp distress requiring intubation, was extubated after 36hrs. Patient was being treated for acute CHF exacerbation. Pt required vapotherm, was monitored in ICU, transferred to medical floor on 10/29. Pt has h/o severe anxiety and PTSD at baseline. He is also on BiPAP at night. He was noted to be in distress on floor and was transferred back to ICU in <24 hrs. Pt was stabilized with BiPAP and O2 at 10L. Pt continued to have episodes of anxiety. O/n pt had significant resp distress and desaturation and was intubated for hypoxic resp failure. He has not responded to 120mg of Lasix. Pt has required 100%FiO2 and PEEP of 12. Pt is currently on 50% FiO2. Pt with fevers this am. Pt off vasopressors. No other issues overnight other than continued fever. UO low rate but steady. Vital Signs: Temp Pulse Resp BP SpO2 FiO2 101.3 F 105 22 125/66 90 50 11/01/19 06:30 11/01/19 06:30 11/01/19 06:50 11/01/19 06:30 11/01/19 06:30 11/01 08:00 Physical Exam: Gen: Pt is sedated HEENT: ETT+ Lungs: Dimnished air entry at bases Cardiac: S1, S2+ Abdomen: Soft, BS+ Extremities: Normal ROM Neuro: Sedated, non-focal neuro exam Fluid Balance (Past 24 Hours): I= 120 O= 255 Net -135 Intake & Output 10/30/19 10/31/19 11/01/19 11/02/19 06:59 06:59 06:59 06:59 Intake Total 324.2 1102.3 1193 120 Output Total 1580 1120 1343 255 Balance -1255.8 -17.7 -150 -135 Weight 207 lb 12.814 oz 202 lb 13.204 oz 204 lb 2.369 oz Intake: IV Fluids 51 298 71 ABX - CEFTRIAXONE 51 150 NS 148 71 IVPB 260 NS 260 Medicated IV 73.2 54.3 472 CC - Norepinephrine/ 34.5 263 Levophed CC - Propofol/Diprivan 19.8 209 Precedex 73.2 Oral 200 750 0 Tube Feeding 40 Tube Feeding Flush Amount 350 120 Output: Gaviria 1580 1120 1343 255 Other: Date of Last Bowel 10/30/2019 11/01/19 Movement # Bowel Movements 1 1 Estimated Stool Amount Large Large Labs: Laboratory Results - last 24 hr 10/31/19 10/31/19 10/31/19 08:13 13:24 16:33 WBC RBC Hgb Hct MCV MCH MCHC RDW Plt Count MPV Neutrophils % Lymphocytes % Monocytes % Abs Neuts (Manual) Abs Lymphs (Manual) Abs Monocytes (Manual) Normal RBC Morphology Polychromasia Hypochromasia Basophilic Stippling Anisocytosis Sodium Potassium Chloride Carbon Dioxide Anion Gap BUN Creatinine Est GFR ( Amer) Est GFR (Non-Af Amer) BUN/Creatinine Ratio Glucose POC Glucose (mg/dL) 111 H 88 93 Calcium 10/31/19 11/01/19 11/01/19 20:27 00:45 04:50 WBC RBC Hgb Hct MCV MCH MCHC RDW Plt Count MPV Neutrophils % Lymphocytes % Monocytes % Abs Neuts (Manual) Abs Lymphs (Manual) Abs Monocytes (Manual) Normal RBC Morphology Polychromasia Hypochromasia Basophilic Stippling Anisocytosis Sodium 148 H Potassium 4.0 Chloride 111 Carbon Dioxide 31 Anion Gap 6 BUN 35 H Creatinine 1.92 H Est GFR ( Amer) 42.1 Est GFR (Non-Af Amer) 34.8 BUN/Creatinine Ratio 18.2 Glucose 146 H POC Glucose (mg/dL) 184 H 188 H Calcium 8.1 L 11/01/19 11/01/19 04:50 08:35 WBC 18.2 H RBC 4.07 L Hgb 9.8 L Hct 33 L MCV 80 MCH 24 L MCHC 30 L RDW 20 H Plt Count 83 L D MPV 9.3 Neutrophils % 94.0 Lymphocytes % 2.0 Monocytes % 4.0 Abs Neuts (Manual) 17.1 H Abs Lymphs (Manual) 0.4 L Abs Monocytes (Manual) 0.7 Normal RBC Morphology Not Reportable Polychromasia 1+ Hypochromasia 1+ Basophilic Stippling 1+ Anisocytosis 2+ Sodium Potassium Chloride Carbon Dioxide Anion Gap BUN Creatinine Est GFR ( Amer) Est GFR (Non-Af Amer) BUN/Creatinine Ratio Glucose POC Glucose (mg/dL) 243 H Calcium Studies: CT chest 10/31/19 was personally reviewed-Interstitial edema, GGO, b/l pl effusions and basal atelectasis. Nutrition: Tube feeds Impression: 69 y o m with h/o CAD, Afib, PTSD, COPD and CHF a/w acute CHF exacerbation. Pt with complicated course recently with multiple hospitalizations- in May for resp failure requiring intubation to hosp in [place], [facility] for CHF exacerbation, was admitted to hospital in [place] for o/n observation. Pt on chronic BiPAP and O2 at 3-4 L at home. Has been on Keflex as outpatient for left elbow osteomyelitis. Pt with acute hypoxic and hypercapnic resp failure 2/2 CHF and COPD exacerbation and possible component of PNA. Pt is currently intubated on mechanical ventilator with 50%FiO2 and PEEP of 5 with saturations around 93%. 1. Acute on chronic hypoxic and hypercapnic resp failure 2. Acute systolic CHF exacerbation 3. PNA- Aspiration versus HCAP 4. Severe PTSD and anxiety 5. Severe COPD 6. Chronic OM 7. Leucocytosis 8. Hypernatremia 9. Renal failure 10. Hypotension 2/2 cardiogenic versus septic shock versus medication and PEEP induced requiring vasopressors 11. Fever Plan: Neuro: Pt is intubated and sedated. Will perform sedation vacation as per protocol. Will maintain RASS<-3. Keep HOB elevated at 30 degrees. Pt with anxiety/PTSD, c/w meds. Resp: Pt with acute on chronic hypoxic and hypercapnic resp failure requiring intubation. Pt with evidence of pulm vascular congestion with b/l pl effusions, not much response to Lasix. Also suspect PNA, no witnessed aspiration event however pt with weak cough reflex and suspect mucus plugging. No wheeze noted. Will c/w metanebs. sputum cx positive for yeast . c/w bronchodilators. Lower FiO2 as tolerated. Pt with recurrent hospitalizations for resp failure recently , suspect progression of underlying pulmonary disease. Pt to have trial of intubation and monitoring for 48hrs as per pt`s with no further escalation or reintubation in future. CT chest showed vascular congestion and b/l pl effusion. CVS: Pt with CAD, severe sys CHF, A.fib. Pt on Plavix and Lovenox. A.fib rate controlled. Requiring vasopressors. Has PICC line for pressor administration. Titrate Levophed to MAP of 65. ID:Fever+, has olecranon bursitis and on Keflex at home, was changed to Ceftriaxone as he was not able to take po. Abx broadened to Cefepime given concern with HCAP/asp PNA. Septic w/u sent. Renal: Renal failure, acute versus chronic. Hypernatremia 2/2 Lasix, monitor renal function closely. Endo: On Insulin, BS stable. Haem: Anemia of chronic disease, leucocytosis, thrombocytopenia- Stable Musculoskeletal: Olecranon bursits on abx. Frequent turning and positioning to prevent bedsores. Psych/Social: updated at bedside DVT px: On Lovenox Pt is DNR, no further intubations in future. to consider terminal extubation if no improvement in 48 hrs. Critical Care Time: 25 min
[2019-11-01] MEDS: Insulin GLARGINE(*) 1 UNITS UNIT SUBCUT SCH (12:24)
[2019-11-01 14:58] LABS: Urine Appearance Cloudy; Urine Bilirubin Negative (Negative); Urine Blood 1+ (Negative); Urine Color Yellow; Urine Glucose Negative (Negative); Urine Ketones Negative (Negative); Urine Nitrite Negative (Negative); Urine Protein Negative (Negative); Urine Specific Gravity 1.011 (1.010-1.030); Urine Urobilinogen Negative (Negative)
[2019-11-01 15:02] LABS: Urine Bacteria Absent (Absent); Urine Red Blood Cell 1+(3-5/hpf) (Absent); Urine White Blood Cell Trace(0-5/hpf) (Absent)
[2019-11-01] MEDS: Gabapentin CAP(*) 300 MG PO SCH (17:58)
[2019-11-01] MEDS: Atorvastatin* 20 MG TAB PO SCH (17:58)
[2019-11-01] MEDS: Nicotine Patch Removal NOTE FOLLOW UP SCH (20:41)
[2019-11-01] MEDS: Nicotine PATCH 14 MG/24 HR* PATCH TRANSDERM SCH (22:49)
[2019-11-02] MEDS: Metoprolol Tartrate IV* 1 MG/ML 5 ML VIAL IV SCH ×4 (00:03→13:18)
[2019-11-02] MEDS: Acetaminophen ADULT LIQ* 650 MG/20.3 ML UDC PO PRN ×2 (03:03→08:27)
[2019-11-02] MEDS: Cefepime 1 GM in Dextrose(*) 1 GM/50 ML BAG IV SCH (04:04)
[2019-11-02] MEDS: Insulin LISPRO* 1 UNITS UNIT SUBCUT SCH ×3 (04:04→13:17)
[2019-11-02] MEDS: Chlorhexidine MOUTHWASH 0.12%* 15 ML UDC TOPICAL SCH ×3 (04:04→13:16)
[2019-11-02 04:26] LABS: Hematocrit 31 % (42-52); Hemoglobin 8.9 g/dL (14.0-18.0); Mean Corpuscular HGB Conc 29 g/dL (31-36); Mean Corpuscular Hemoglobin 24 pg (27-31); Mean Corpuscular Volume 84 fL (80-94); Mean Platelet Volume 10.7 fL (7.4-10.4); Platelet Count 88 10^3/uL (150-450); Red Blood Count 3.65 10^6 /uL (4.18-5.48); Red Cell Distribution Width 21 % (10-15); White Blood Count 13.9 10^3/uL (3.5-10.8)
[2019-11-02 04:39] LABS: BUN/Creatinine Ratio 18.7 (8-20); Blood Urea Nitrogen 32 mg/dL (6-24); CO2 Carbon Dioxide 25 mmol/L (22-32); Chloride 106 mmol/L (101-111); EGFR African American 48.1 (>60); EGFR Non-African American 39.8 (>60); Sodium 129 mmol/L (135-145)
[2019-11-02 04:44] LABS: Glucose 557 mg/dL (70-100)
[2019-11-02 04:50] LABS: Polychromasia 1+
[2019-11-02 04:51] LABS: ABS Basophils 0.1 10^3/ul (0-0.2); ABS Eosinophils 0.1 10^3/ul (0-0.6); ABS Lymphocytes 0.3 10^3/ul (1.0-4.8); ABS Monocytes 0.5 10^3/ul (0-0.8); ABS Neutrophils 12.9 10^3/ul (1.5-7.7); Eosinophil % 0.7 %; Lymphocyte % 1.9 %; Nucleated Red Blood Cells % 0.3
[2019-11-02] MEDS: Propofol* 100 ML IV SCH (05:11)
[2019-11-02 05:13] LABS: BUN/Creatinine Ratio 21.1 (8-20); Calcium 8.1 mg/dL (8.6-10.3); EGFR African American 48.1 (>60); EGFR Non-African American 39.8 (>60); Potassium 3.7 mmol/L (3.5-5.0)
[2019-11-02] MEDS ORDERED: Vancomycin Trough Check NOTE FOLLOW UP ONE (05:30)
[2019-11-02] MEDS: Vancomycin(*) 750 MG in NS 0.9% 250 ML* 250 ML IVPB SCH (06:02)
[2019-11-02] MEDS: Morphine INJ* 2 MG/ML 1 ML SYRINGE (TWO MG - NEW SYRINGE VERSION) IV PRN ×2 (07:50→08:06)
[2019-11-02] MEDS: Tiotropium Brom/Olodaterol MDI INH SCH (08:39)
[2019-11-02] MEDS: Mometasone/Formoter 200/5 MDI INH SCH (08:40)
[2019-11-02] MEDS: Nicotine PATCH 14 MG/24 HR* PATCH TRANSDERM SCH (09:12)
[2019-11-02] MEDS ORDERED: Morphine INJ* 4 MG/ML 1 ML SYRINGE (NEW SYRINGE VERSION) IV PRN (09:35)
[2019-11-02] MEDS: busPIRone TAB* 10 MG PO SCH ×2 (11:44→14:08)
[2019-11-02] MEDS: Clopidogrel TAB* 75 MG PO SCH (11:44)
[2019-11-02] MEDS: MICONAZOLE NITRATE 2% TOPICAL SCH (11:45)
[2019-11-02] MEDS: OXcarbazepine TAB(*) 300 MG PO SCH (11:45)
--- NOTE | 2019-11-02 11:54 | PN ---
Date of Service: 11/02/19 Critical Care Services: Family at bedside, patient remains encephalopathic with no appreciable response. Essentially off sedation at this time. Vital Signs: Temp Pulse Resp BP SpO2 FiO2 102.9 F 124 32 149/69 92 80 11/02/19 10:15 11/02/19 10:15 11/02/19 10:27 11/02/19 10:15 11/02/19 10:15 11/02 07:30 Physical Exam: Gen: Non-responsive, encephalopathic HEENT: PERRLA, non-icteric sclera Lungs: clear apices, diminished bases, bilateral crackles Cardiac: tachycardic, +S1S2, no rubs or murmurs Abdomen: benign Extremities: No clubbing, no cyanosis, no edema Neuro: Non-responsive, RASS -3 Fluid Balance (Past 24 Hours): I= 3933 O= 1665 Net +2268 Intake & Output 10/31/19 11/01/19 11/02/19 11/03/19 06:59 06:59 06:59 06:59 Intake Total 1102.3 1193 3933 454 Output Total 1120 1343 1665 35 Balance -17.7 -150 2268 419 Weight 202 lb 13.204 oz 204 lb 2.369 oz 200 lb 9.93 oz Intake: IV Fluids 298 71 664 ABX - CEFEPIME 143 ABX - CEFTRIAXONE 150 ABX - VANCOMYCIN 275 NS 148 71 246 IVPB 260 862 ABX - CEFEPIME 125 ABX - VANCOMYCIN 49 NS 260 688 Medicated IV 54.3 472 257 CC - Norepinephrine/ 34.5 263 Levophed CC - Propofol/Diprivan 19.8 209 257 Oral 750 0 Tube Feeding 40 1430 354 Tube Feeding Flush Amount 350 720 100 Output: [place] 1120 1343 1665 35 Other: Date of Last Bowel 10/30/2019 11/01/19 11/01/19 Movement # Bowel Movements 1 1 1 Estimated Stool Amount Large Large Medium Labs: Laboratory Results - last 24 hr 11/01/19 11/01/19 11/01/19 04:50 12:18 14:30 WBC RBC Hgb Hct MCV MCH MCHC RDW Plt Count MPV Neut % (Auto) Lymph % (Auto) Mills % (Auto) Eos % (Auto) Baso % (Auto) Absolute Neuts (auto) Absolute Lymphs (auto) Absolute Monos (auto) Absolute Eos (auto) Absolute Basos (auto) Absolute Nucleated RBC Neutrophils % Lymphocytes % Monocytes % Nucleated RBC % Normal RBC Morphology Polychromasia Hypochromasia Anisocytosis Hem Pathologist Commnt Sodium Potassium Chloride Carbon Dioxide Anion Gap BUN Creatinine Est GFR ( Amer) Est GFR (Non-Af Amer) BUN/Creatinine Ratio Glucose POC Glucose (mg/dL) 172 H Calcium Urine Color Yellow Urine Appearance Cloudy Urine pH 5.0 Ur Specific [place] 1.011 Urine Protein Negative Urine Ketones Negative Urine Blood 1+ A Urine Nitrate Negative Urine Bilirubin Negative Urine Urobilinogen Negative Ur Leukocyte Esterase Trace A Urine WBC (Auto) Trace(0-5/hpf) Urine RBC (Auto) 1+(3-5/hpf) A Urine Bacteria Absent Hyaline Casts Present A Urine Glucose Negative Vancomycin Trough 11/01/19 11/01/19 11/01/19 17:01 20:22 23:49 WBC RBC Hgb Hct MCV MCH MCHC RDW Plt Count MPV Neut % (Auto) Lymph % (Auto) Mills % (Auto) Eos % (Auto) Baso % (Auto) Absolute Neuts (auto) Absolute Lymphs (auto) Absolute Monos (auto) Absolute Eos (auto) Absolute Basos (auto) Absolute Nucleated RBC Neutrophils % Lymphocytes % Monocytes % Nucleated RBC % Normal RBC Morphology Polychromasia Hypochromasia Anisocytosis Hem Pathologist Commnt Sodium Potassium Chloride Carbon Dioxide Anion Gap BUN Creatinine Est GFR ( Amer) Est GFR (Non-Af Amer) BUN/Creatinine Ratio Glucose POC Glucose (mg/dL) 190 H 171 H 154 H Calcium Urine Color Urine Appearance Urine pH Ur Specific [place] Urine Protein Urine Ketones Urine Blood Urine Nitrate Urine Bilirubin Urine Urobilinogen Ur Leukocyte Esterase Urine WBC (Auto) Urine RBC (Auto) Urine Bacteria Hyaline Casts Urine Glucose Vancomycin Trough 11/02/19 11/02/19 11/02/19 03:57 04:15 04:15 WBC 13.9 H RBC 3.65 L Hgb 8.9 L Hct 31 L MCV 84 MCH 24 L MCHC 29 L RDW 21 H Plt Count 88 L MPV 10.7 H Neut % (Auto) 93.3 Lymph % (Auto) 1.9 Mills % (Auto) 3.6 Eos % (Auto) 0.7 Baso % (Auto) 0.5 Absolute Neuts (auto) 12.9 H Absolute Lymphs (auto) 0.3 L Absolute Monos (auto) 0.5 Absolute Eos (auto) 0.1 Absolute Basos (auto) 0.1 Absolute Nucleated RBC 0.0 Neutrophils % 94.0 Lymphocytes % 2.0 Monocytes % 4.0 Nucleated RBC % 0.3 Normal RBC Morphology Not Reportable Polychromasia 1+ Hypochromasia 1+ Anisocytosis 2+ Hem Pathologist Commnt Sodium 129 L D Potassium TNP Chloride 106 Carbon Dioxide 25 Anion Gap Not Reportable BUN 32 H Creatinine 1.71 H Est GFR ( Amer) 48.1 Est GFR (Non-Af Amer) 39.8 BUN/Creatinine Ratio 18.7 Glucose 557 H* POC Glucose (mg/dL) 239 H Calcium 7.0 L Urine Color Urine Appearance Urine pH Ur Specific [place] Urine Protein Urine Ketones Urine Blood Urine Nitrate Urine Bilirubin Urine Urobilinogen Ur Leukocyte Esterase Urine WBC (Auto) Urine RBC (Auto) Urine Bacteria Hyaline Casts Urine Glucose Vancomycin Trough 11/02/19 11/02/19 11/02/19 04:30 04:45 08:46 WBC RBC Hgb Hct MCV MCH MCHC RDW Plt Count MPV Neut % (Auto) Lymph % (Auto) Mills % (Auto) Eos % (Auto) Baso % (Auto) Absolute Neuts (auto) Absolute Lymphs (auto) Absolute Monos (auto) Absolute Eos (auto) Absolute Basos (auto) Absolute Nucleated RBC Neutrophils % Lymphocytes % Monocytes % Nucleated RBC % Normal RBC Morphology Polychromasia Hypochromasia Anisocytosis Hem Pathologist Commnt Sodium 148 H D Potassium 3.7 Chloride 112 H Carbon Dioxide 30 Anion Gap 6 BUN 36 H Creatinine 1.71 H Est GFR ( Amer) 48.1 Est GFR (Non-Af Amer) 39.8 BUN/Creatinine Ratio 21.1 H Glucose 192 H POC Glucose (mg/dL) 226 H Calcium 8.1 L Urine Color Urine Appearance Urine pH Ur Specific [place] Urine Protein Urine Ketones Urine Blood Urine Nitrate Urine Bilirubin Urine Urobilinogen Ur Leukocyte Esterase Urine WBC (Auto) Urine RBC (Auto) Urine Bacteria Hyaline Casts Urine Glucose Vancomycin Trough 19.1 Studies: CT chest 10/31/19, showing interstitial edema, GGO, b/l pl effusions and basal atelectasis. Nutrition: Tube feed Impression: This is a 69 y o m with h/o CAD, Afib, PTSD, COPD and CHF a/w acute CHF exacerbation. He has had very complicated recent hospitalizations including in May 2019 for resp failure requiring intubation and [facility] for CHF exacerbation, and admitted to hospital in [place]. Diagnoses: 1. Acute on chronic hypoxic and hypercapnic respiratory failure 2. Acute systolic CHF exacerbation 3. PNA- Aspiration versus HCAP 4. Severe PTSD and anxiety 5. Severe COPD 6. Chronic OM 7. Leukocytosis 8. Hypernatremia 9. Renal failure 10. Hypotension 2/2 cardiogenic versus septic shock 11. Fever 12. Diarrhea Plan: Neuro: - Remains intubated - Sedation is minimal (propofol at only 5) and he is non-responsive/ persistently encephalopathic Resp: - Evidence of pulmonary vascular congestion with b/l pleural effusions, poor response to Lasix - VENT: 100% FiO2, PEEP of 10. RR rate in 30's - Likely PNA contributing given fevers today, weak cough reflex and suspect mucus plugging - Was down to 50% FIO2 over the weekend, however, sats declined this AM and vent has been titrated up - Highly suspect progression of underlying pulmonary disease with PNA, increasing FIO2 needs today, up to 100% and sats remain poor and he is tachypneic - Morphine PRN CV: - Persistently tachycardic today, off pressors GI: - Tube feeds ID: - Positive fevers overnight and new diarrhea, cdiff negative - Noted olecranon bursitis (was on Keflex at home) - Broadened to Cefepime and vanco given concern with HCAP/asp PNA. Septic w/u sent Renal: - Likely multisystem organ failure given poor UOP today - Hypernatremia 2/2 Lasix Endo: - On Insulin, BS stable. Musculoskeletal/Skin - T&P Q2h Psych/Social: Family meeting to discuss goals of care with /HCP. Patient specifically stated he did not want intubation this last time, however, his allowed intubation for 48 hour trial period. Discussed at length that patient's condition is worsening and that we are now at the [address] Manuel from Palliative also at bedside to discuss decisions with family whether or not she wishes to withdraw care and place the patient on comfort measures only. They are still discussing at this time. Support provided. Farm Supervisor and Dr. Hanna also at bedside for support and additional clinical questions. Code Status: DNR DVT px: Lovenox Prognosis: Poor Critical Care Time: 60 minutes
[2019-11-02] MEDS: Furosemide IV* 10 MG/ML 10 ML VIAL (100 MG) IV SCH (12:02)
[2019-11-02] MEDS: Sertraline* 100 MG TAB PO SCH (12:03)
[2019-11-02] MEDS: Enoxaparin(*) 100 MG/ML SYR SUBCUT SCH (12:03)
[2019-11-02] MEDS: Pantoprazole IV* 40 MG IV SCH (12:03)
[2019-11-02] MEDS: Insulin GLARGINE(*) 1 UNITS UNIT SUBCUT SCH (13:17)
[2019-11-02] MEDS ORDERED: Lorazepam PYXIS KEY PRN (13:31)
--- NOTE | 2019-11-02 13:33 | CONSULT ---
Palliative / Hospice Consult Ordering Provider: Dahiana Whipple - [facility]CP[facility] Referal Reason: Goals of care/colace/hydromorphone & MS - Subjective Code Status: DNR Advance Directives Location: No Advance Directives MOLST Part A Completed: Yes - on chart MOLST Part E Completed:: Yes - on chart - History or Present Illness History or Present Illness: 69yo male with end stage COPD and CHF presented to ER with SOB x1d. PMH is significant for COPD on 3.5 liters O2, chronic hypoxic respiratory failure, obstructive sleep apnea on BiPAP at night, CHF EF 40-45%, CAD s/p 4 stents, PVD( 12 stents), HTN, CKD, hyperlipidemia, GERD, irritable bowel syndrome, afib, DM type 2 and PTSD. 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 Studies ekg- afib, RBBB, CXR#1 CHF, CXR#2-RUL, airspace disease and interstitial edema, ECHO- EF-35-40%, mod mitral regurge, mod aortic regurge, chest CT-atherosclerosis, cardiomegaly with pulm interstitial edema, bilat pleural effusion, patchy RML with dependent atelectasis bilat, abd/pel CT-bilat pleural effusion, DJD, brain CT-no acute changes, chronic microvascular ischemic changes, chest CT- interstitial pul edema with enlarging pleural effusion and atelectasis, H/H 9.8/ 33, plt 83, BUN/Cr 35/1.92,egfr 34.8, BNP>1300, troponin .05, alb 3, ca 8.1, ast 461, alt 384, INR 1.91, BC neg, UC neg. Pt admitted with acute on chronic respiratory failure secondary to CHF exacerbation, COPD, acute on CKD and CAD. He was admitted to ICU on BiPAP transferred to floor on 10/28 transferred back to ICU on 10/29 intubated. Pt has 4 ER visits and 5 hospitalizations in the last year. All history is from and medical records, pt intubated and unable to contribute. Lab Values: Abnormal Lab Results 11/01/19 11/01/19 11/01/19 04:50 12:18 14:30 WBC RBC Hgb Hct MCV MCH MCHC RDW Plt Count MPV Neut % (Auto) Lymph % (Auto) [place] % (Auto) Eos % (Auto) Baso % (Auto) Absolute Neuts (auto) Absolute Lymphs (auto) Absolute Monos (auto) Absolute Eos (auto) Absolute Basos (auto) Absolute Nucleated RBC Neutrophils % Lymphocytes % Monocytes % Nucleated RBC % Normal RBC Morphology Polychromasia Hypochromasia Anisocytosis Hem Pathologist Commnt Sodium Potassium Chloride Carbon Dioxide Anion Gap BUN Creatinine Est GFR ( Amer) Est GFR (Non-Af Amer) BUN/Creatinine Ratio Glucose POC Glucose (mg/dL) 172 H Calcium Urine Color Yellow Urine Appearance Cloudy Urine pH 5.0 Ur Specific [place] 1.011 Urine Protein Negative Urine Ketones Negative Urine Blood 1+ A Urine Nitrate Negative Urine Bilirubin Negative Urine Urobilinogen Negative Ur Leukocyte Esterase Trace A Urine WBC (Auto) Trace(0-5/hpf) Urine RBC (Auto) 1+(3-5/hpf) A Urine Bacteria Absent Hyaline Casts Present A Urine Glucose Negative Vancomycin Trough 11/01/19 11/01/19 11/01/19 17:01 20:22 23:49 WBC RBC Hgb Hct MCV MCH MCHC RDW Plt Count MPV Neut % (Auto) Lymph % (Auto) [place] % (Auto) Eos % (Auto) Baso % (Auto) Absolute Neuts (auto) Absolute Lymphs (auto) Absolute Monos (auto) Absolute Eos (auto) Absolute Basos (auto) Absolute Nucleated RBC Neutrophils % Lymphocytes % Monocytes % Nucleated RBC % Normal RBC Morphology Polychromasia Hypochromasia Anisocytosis Hem Pathologist Commnt Sodium Potassium Chloride Carbon Dioxide Anion Gap BUN Creatinine Est GFR ( Amer) Est GFR (Non-Af Amer) BUN/Creatinine Ratio Glucose POC Glucose (mg/dL) 190 H 171 H 154 H Calcium Urine Color Urine Appearance Urine pH Ur Specific [place] Urine Protein Urine Ketones Urine Blood Urine Nitrate Urine Bilirubin Urine Urobilinogen Ur Leukocyte Esterase Urine WBC (Auto) Urine RBC (Auto) Urine Bacteria Hyaline Casts Urine Glucose Vancomycin Trough 11/02/19 11/02/19 11/02/19 03:57 04:15 04:15 WBC 13.9 H RBC 3.65 L Hgb 8.9 L Hct 31 L MCV 84 MCH 24 L MCHC 29 L RDW 21 H Plt Count 88 L MPV 10.7 H Neut % (Auto) 93.3 Lymph % (Auto) 1.9 [place] % (Auto) 3.6 Eos % (Auto) 0.7 Baso % (Auto) 0.5 Absolute Neuts (auto) 12.9 H Absolute Lymphs (auto) 0.3 L Absolute Monos (auto) 0.5 Absolute Eos (auto) 0.1 Absolute Basos (auto) 0.1 Absolute Nucleated RBC 0.0 Neutrophils % 94.0 Lymphocytes % 2.0 Monocytes % 4.0 Nucleated RBC % 0.3 Normal RBC Morphology Not Reportable Polychromasia 1+ Hypochromasia 1+ Anisocytosis 2+ Hem Pathologist Commnt Sodium 129 L D Potassium TNP Chloride 106 Carbon Dioxide 25 Anion Gap Not Reportable BUN 32 H Creatinine 1.71 H Est GFR ( Amer) 48.1 Est GFR (Non-Af Amer) 39.8 BUN/Creatinine Ratio 18.7 Glucose 557 H* POC Glucose (mg/dL) 239 H Calcium 7.0 L Urine Color Urine Appearance Urine pH Ur Specific [place] Urine Protein Urine Ketones Urine Blood Urine Nitrate Urine Bilirubin Urine Urobilinogen Ur Leukocyte Esterase Urine WBC (Auto) Urine RBC (Auto) Urine Bacteria Hyaline Casts Urine Glucose Vancomycin Trough 11/02/19 11/02/19 11/02/19 04:30 04:45 08:46 WBC RBC Hgb Hct MCV MCH MCHC RDW Plt Count MPV Neut % (Auto) Lymph % (Auto) [place] % (Auto) Eos % (Auto) Baso % (Auto) Absolute Neuts (auto) Absolute Lymphs (auto) Absolute Monos (auto) Absolute Eos (auto) Absolute Basos (auto) Absolute Nucleated RBC Neutrophils % Lymphocytes % Monocytes % Nucleated RBC % Normal RBC Morphology Polychromasia Hypochromasia Anisocytosis Hem Pathologist Commnt Sodium 148 H D Potassium 3.7 Chloride 112 H Carbon Dioxide 30 Anion Gap 6 BUN 36 H Creatinine 1.71 H Est GFR ( Amer) 48.1 Est GFR (Non-Af Amer) 39.8 BUN/Creatinine Ratio 21.1 H Glucose 192 H POC Glucose (mg/dL) 226 H Calcium 8.1 L Urine Color Urine Appearance Urine pH Ur Specific [place] Urine Protein Urine Ketones Urine Blood Urine Nitrate Urine Bilirubin Urine Urobilinogen Ur Leukocyte Esterase Urine WBC (Auto) Urine RBC (Auto) Urine Bacteria Hyaline Casts Urine Glucose Vancomycin Trough 19.1 Laboratory Last Values WBC 13.9 10^3/uL (3.5-10.8) H 11/02/19 04:15 RBC 3.65 10^6 /uL (4.18-5.48) L 11/02/19 04:15 Hgb 8.9 g/dL (14.0-18.0) L 11/02/19 04:15 Hct 31 % (42-52) L 11/02/19 04:15 MCV 84 fL (80-94) 11/02/19 04:15 MCH 24 pg (27-31) L 11/02/19 04:15 MCHC 29 g/dL (31-36) L 11/02/19 04:15 RDW 21 % (10-15) H 11/02/19 04:15 Plt Count 88 10^3/uL (150-450) L 11/02/19 04:15 MPV 10.7 fL (7.4-10.4) H 11/02/19 04:15 Neut % (Auto) 93.3 % 11/02/19 04:15 Lymph % (Auto) 1.9 % 11/02/19 04:15 [place] % (Auto) 3.6 % 11/02/19 04:15 Eos % (Auto) 0.7 % 11/02/19 04:15 Baso % (Auto) 0.5 % 11/02/19 04:15 Absolute Neuts (auto) 12.9 10^3/ul (1.5-7.7) H 11/02/19 04:15 Absolute Lymphs (auto) 0.3 10^3/ul (1.0-4.8) L 11/02/19 04:15 Absolute Monos (auto) 0.5 10^3/ul (0-0.8) 11/02/19 04:15 Absolute Eos (auto) 0.1 10^3/ul (0-0.6) 11/02/19 04:15 Absolute Basos (auto) 0.1 10^3/ul (0-0.2) 11/02/19 04:15 Absolute Nucleated RBC 0.0 10^3/ul 11/02/19 04:15 Neutrophils % 94.0 % 11/02/19 04:15 Lymphocytes % 2.0 % 11/02/19 04:15 Monocytes % 4.0 % 11/02/19 04:15 Nucleated RBC % 0.3 11/02/19 04:15 Abs Neuts (Manual) 17.1 10^3/ul (1.5-7.7) H 11/01/19 04:50 Abs Lymphs (Manual) 0.4 10^3/ul (1.0-4.8) L 11/01/19 04:50 Abs Monocytes (Manual) 0.7 10^3/ul (0-0.8) 11/01/19 04:50 Normal RBC Morphology Not Reportable 11/02/19 04:15 Polychromasia 1+ 11/02/19 04:15 Hypochromasia 1+ 11/02/19 04:15 Basophilic Stippling 1+ 11/01/19 04:50 Anisocytosis 2+ 11/02/19 04:15 Macrocytosis 1+ 10/31/19 05:24 Hem Pathologist Commnt 11/02/19 04:15 INR (Anticoag Therapy) 1.91 (0.82-1.09) H 10/16/19 15:21 Patient Temperature Not Reportable 10/31/19 04:38 ABG pH 7.38 (7.35-7.45) 10/31/19 04:38 ABG pH (Temp Correct) Not Reportable 10/31/19 04:38 ABG pCO2 54 mmHg (35-45) H 10/31/19 04:38 ABG pCO2 (Temp Corrct Not Reportable 10/31/19 04:38 ABG pO2 69 mmHg (80-100) L 10/31/19 04:38 ABG pO2 (Temp Correct Not Reportable 10/31/19 04:38 ABG HCO3 28.9 mmol/L (19-31) 10/31/19 04:38 ABG O2 Saturation 95.0 % (94.0-98.0) 10/31/19 04:38 ABG Base Excess 5.3 mmol/L (-2.0-2.0) H 10/31/19 04:38 VBG pH 7.33 (7.32-7.43) 10/16/19 15:21 VBG pCO2 54 mmHg (41-51) H 10/16/19 15:21 VBG pO2 < 38.0 mmHg (35-45) 10/16/19 15:21 VBG HCO3 23.8 mmol/L (24-28) L 10/16/19 15:21 VBG O2 Saturation 12.6 % (70-80) L 10/16/19 15:21 VBG Base Excess 1.5 mmol/L (0.0-4.0) 10/16/19 15:21 Respiration Rate 20 10/31/19 04:38 O2 Delivery Device vent 10/31/19 04:38 Ventilator Type Not Reportable 10/31/19 04:38 Vent Mode pcv 10/31/19 04:38 FiO2 100 10/31/19 04:38 Inspiratory Time 0.6 10/31/19 04:38 PEEP 12 10/31/19 04:38 Pressure Support Not Reportable 10/31/19 04:38 Pressure Control 22 10/31/19 04:38 EPAP Not Reportable 10/31/19 04:38 IPAP Not Reportable 10/31/19 04:38 BiPAP Not Reportable 10/31/19 04:38 Sodium 148 mmol/L (135-145) H D 11/02/19 04:45 Potassium 3.7 mmol/L (3.5-5.0) 11/02/19 04:45 Chloride 112 mmol/L (101-111) H 11/02/19 04:45 Carbon Dioxide 30 mmol/L (22-32) 11/02/19 04:45 Anion Gap 6 mmol/L (2-11) 11/02/19 04:45 BUN 36 mg/dL (6-24) H 11/02/19 04:45 Creatinine 1.71 mg/dL (0.67-1.17) H 11/02/19 04:45 Est GFR ( Amer) 48.1 (>60) 11/02/19 04:45 Est GFR (Non-Af Amer) 39.8 (>60) 11/02/19 04:45 BUN/Creatinine Ratio 21.1 (8-20) H 11/02/19 04:45 Glucose 192 mg/dL (70-100) H 11/02/19 04:45 POC Glucose (mg/dL) 226 mg/dL (70-100) H 11/02/19 08:46 Lactic Acid 1.5 mmol/L (0.5-2.0) 10/31/19 05:24 Uric Acid 8.8 mg/dL (4.4-7.6) H 10/28/19 04:40 Calcium 8.1 mg/dL (8.6-10.3) L 11/02/19 04:45 Phosphorus 5.2 mg/dL (2.5-5.0) H 10/26/19 04:30 Magnesium 1.9 mg/dL (1.9-2.7) 10/31/19 05:24 Total Bilirubin 0.80 mg/dL (0.2-1.0) 10/29/19 04:55 Direct Bilirubin 0.30 mg/dL (0.03-0.18) H 10/23/19 04:45 Indirect Bilirubin 0.5 mg/dL (0.3-1.0) 10/23/19 04:45 AST 26 U/L (13-39) 10/29/19 04:55 ALT 72 U/L (7-52) H 10/29/19 04:55 Alkaline Phosphatase 120 U/L (34-104) H 10/29/19 04:55 Ammonia 45 mcmol/L (16-53) 10/30/19 05:00 Troponin I 0.05 ng/mL (<0.03) H* 10/22/19 04:03 B-Natriuretic Peptide > 1300 pg/mL (<=100) H 10/26/19 04:30 Total Protein 5.3 g/dL (6.4-8.9) L 10/29/19 04:55 Albumin 3.0 g/dL (3.2-5.2) L 10/29/19 04:55 Globulin 2.3 g/dL (2-4) 10/29/19 04:55 Albumin/Globulin Ratio 1.3 (1-3) 10/29/19 04:55 Urine Color Yellow 11/01/19 14:30 Urine Appearance Cloudy 11/01/19 14:30 Urine pH 5.0 (5-9) 11/01/19 14:30 Ur Specific [place] 1.011 (1.010-1.030) 11/01/19 14:30 Urine Protein Negative (Negative) 11/01/19 14:30 Urine Ketones Negative (Negative) 11/01/19 14:30 Urine Blood 1+ (Negative) A 11/01/19 14:30 Urine Nitrate Negative (Negative) 11/01/19 14:30 Urine Bilirubin Negative (Negative) 11/01/19 14:30 Urine Urobilinogen Negative (Negative) 11/01/19 14:30 Ur Leukocyte Esterase Trace (Negative) A 11/01/19 14:30 Urine WBC (Auto) Trace(0-5/hpf) (Absent) 11/01/19 14:30 Urine RBC (Auto) 1+(3-5/hpf) (Absent) A 11/01/19 14:30 Urine Bacteria Absent (Absent) 11/01/19 14:30 Hyaline Casts Present (Absent) A 11/01/19 14:30 Granular Casts Present (Absent) A 10/28/19 17:16 Urine Glucose Negative (Negative) 11/01/19 14:30 Urine Ascorbic Acid * (Negative) A 10/24/19 14:36 Vancomycin Trough 19.1 mcg/mL 11/02/19 04:30 Digoxin 0.8 ng/ml (0.8-2.0) 10/19/19 08:42 Influenza A (Rapid) Negative (Negative) 10/16/19 21:55 Influenza B (Rapid) Negative (Negative) 10/16/19 21:55 - Objective Active Medications: Acetaminophen (Tylenol Adult Liq*) 650 mg PO Q6H PRN PRN Reason: MILD PAIN or TEMP > 100.4 Last Admin: 11/02/19 08:27 Dose: 650 mg Hydrocodone Bitart/Acetaminophen ([place] 5-325 Tab*) 1 tab PO Q6H PRN PRN Reason: PAIN - MODERATE Last Admin: 10/28/19 20:49 Dose: 1 tab Albuterol/Ipratropium (Duoneb (Albuterol 2.5 Mg/Ipratropium 0.5 Mg)) 1 neb INH Q4H PRN PRN Reason: SOB/WHEEZING Last Admin: 10/17/19 13:43 Dose: 1 neb Atorvastatin Calcium (Lipitor*) 20 mg PO 1700 STELLA Last Admin: 11/01/19 17:58 Dose: 20 mg Buspirone HCl (Buspar Tab*) 10 mg PO TID STELLA Last Admin: 11/02/19 11:44 Dose: Not Given Chlorhexidine Gluconate (Peridex Mouth Wash 0.12%*) 15 ml TOPICAL Q4H [facility] Last Admin: 11/02/19 13:16 Dose: Not Given Clopidogrel Bisulfate (Plavix Tab*) 75 mg PO DAILY [facility] Last Admin: 11/02/19 11:44 Dose: Not Given Dextrose (Dextrose 50% Vial 50 Ml*) 25 ml IV PUSH .FOR FS < 60 - SS PRN PRN Reason: FS < 60 Last Admin: 10/20/19 08:48 Dose: 25 ml Docusate Sodium (Colace Cap*) 100 mg PO DAILY PRN PRN Reason: CONSTIPATION Last Admin: 10/26/19 17:49 Dose: 100 mg Enoxaparin Sodium (Lovenox(*)) 100 mg SUBCUT Q12H [facility] Last Admin: 11/02/19 12:03 Dose: Not Given Furosemide (Lasix Iv*) 80 mg IV DAILY [facility] Last Admin: 11/02/19 12:02 Dose: Not Given Gabapentin (Neurontin Cap(*)) 600 mg PO QPM [facility] Last Admin: 11/01/19 17:58 Dose: 600 mg Hydralazine HCl (Apresoline Iv*) 10 mg IV SLOW PU Q6H PRN PRN Reason: SBP>160 Last Admin: 10/28/19 17:00 Dose: 10 mg Cefepime HCl (Maxipime 1 Gm In Dextrose Duplex (*)) 1 gm in 50 mls @ 100 mls/ hr IV Q12H [facility] Last Admin: 11/02/19 04:04 Dose: 100 mls/hr Norepinephrine Bitartrate (Levophed 16 Mcg/Ml Premix*) 4,000 mcg in 250 mls @ 0 mls/hr IV .PER PROTOCOL [facility]; Protocol Last Admin: 10/31/19 20:20 Dose: 13.1 mls/hr Propofol (Diprivan*) 100 mls @ 2.76 mls/hr IV .PER PROTOCOL [facility]; Protocol Last Admin: 11/02/19 05:11 Dose: 11.2 mls/hr Vancomycin HCl 750 mg/ Sodium (Chloride) 250 mls @ 166.667 mls/hr IVPB Q12H [facility] Last Admin: 11/02/19 06:02 Dose: 166.667 mls/hr Albumin Human (Albumin Human 25%*) 25 gm in 100 mls @ 100 mls/hr IV .(ENTER FREQUENCY) [facility] Insulin Glargine (Lantus(*)) 12 units SUBCUT Q24H [facility] Last Admin: 11/02/19 13:17 Dose: Not Given Insulin Human Lispro (Humalog*) 0 units SUBCUT Q4H [facility]; Protocol Last Admin: 11/02/19 13:17 Dose: Not Given Loperamide HCl (Imodium Cap*) 2 mg PO Q6H PRN PRN Reason: DIARRHEA Last Admin: 10/28/19 14:28 Dose: 2 mg Lorazepam (Ativan Inj*) 0.5 mg IV PUSH Q4H PRN PRN Reason: ANXIETY Last Admin: 10/31/19 01:38 Dose: 0.5 mg Metoprolol Tartrate (Lopressor Iv*) 5 mg IV Q6H [facility] Last Admin: 11/02/19 13:18 Dose: Not Given Miscellaneous (Ativan Pyxis [place]) 1 ea N/A .ATIVAN IV [place] PRN PRN Reason: PYXIS [place] Mometasone Furoate/Formoterol Fumar (Dulera 200/5 Mdi*) 2 puff INH BID [facility] Last Admin: 11/02/19 08:40 Dose: Not Given Morphine Sulfate (Morphine Inj (Syringe))*) 2 mg IV Q2H PRN PRN Reason: severe pain or air hunger Last Admin: 11/02/19 08:06 Dose: 2 mg Morphine Sulfate (Morphine Inj (Syringe)*) 4 mg IV Q1H PRN PRN Reason: PAIN - SEVERE Last Admin: 11/02/19 10:27 Dose: 4 mg Nicotine (Nicotine Patch 14 Mg/24 Hr*) 1 patch TRANSDERM DAILY [facility] Last Admin: 11/02/19 09:12 Dose: Not Given Pto: Miconazole Nitrate 2% Topical Powder 1 dose TOPICAL BID [facility] Last Admin: 11/02/19 11:45 Dose: Not Given Ondansetron HCl (Zofran Inj*) 4 mg IV Q6H PRN PRN Reason: NAUSEA Last Admin: 10/21/19 13:15 Dose: 4 mg Oxcarbazepine (Trileptal Tab(*)) 300 mg PO BID [facility] Last Admin: 11/02/19 11:45 Dose: Not Given Pantoprazole Sodium (Protonix Iv*) 40 mg IV Q24H [facility] Last Admin: 11/02/19 12:03 Dose: Not Given Pharmacy Consult (Vancomycin Per Pharmacy*) 1 note FOLLOW UP .VANC PER PHARMACY [facility]; Protocol Pharmacy Profile Note (Nicotine Patch Removal Note*) 1 note FOLLOW UP 2100 [facility] Last Admin: 11/01/19 20:41 Dose: Not Given Pharmacy Profile Note (Vancomycin Trough Check) 1 note FOLLOW UP 0600 ONE Stop: 11/06/19 06:01 Sertraline HCl (Zoloft*) 100 mg PO DAILY [facility] Last Admin: 11/02/19 12:03 Dose: Not Given Tiotropium [place]/Olodaterol (Stiolto Respimat Inh [place] (60 Puff)) 2 puff INH DAILY [facility] Last Admin: 11/02/19 08:39 Dose: Not Given Vital Signs: Vital Signs: Temp Pulse Resp BP Pulse Ox 102.7 F 115 20 123/77 96 11/02/19 13:00 11/02/19 13:00 11/02/19 13:00 11/02/19 13:00 11/02/19 13:00 Patient Weight: Weight 91 kg Intake and Output: Intake & Output 10/31/19 11/01/19 11/02/19 11/03/19 06:59 06:59 06:59 06:59 Intake Total 1102.3 1193 3933 454 Output Total 1120 1343 1665 35 Balance -17.7 -150 2268 419 Weight 92 kg 92.6 kg 91 kg Intake: IV Fluids 298 71 664 ABX - CEFEPIME 143 ABX - CEFTRIAXONE 150 ABX - VANCOMYCIN 275 NS 148 71 246 IVPB 260 862 ABX - CEFEPIME 125 ABX - VANCOMYCIN 49 NS 260 688 Medicated IV 54.3 472 257 CC - Norepinephrine/ 34.5 263 Levophed CC - Propofol/Diprivan 19.8 209 257 Oral 750 0 Tube Feeding 40 1430 354 Tube Feeding Flush Amount 350 720 100 Output: [place] 1120 1343 1665 35 Other: Date of Last Bowel 10/30/2019 11/01/19 11/01/19 Movement # Bowel Movements 1 1 1 Estimated Stool Amount Large Large Medium ADLs: Meal Record Start: 10/16/19 19: 43 Freq: DAILY@0900,1400,1800 Status: Inactive Protocol: Created 10/16/19 19:43 System (Rec: 10/16/19 19:43 System ICU-C12) Document 10/17/19 09:00 [id number] (Rec: 10/17/19 11:34 [id number] ICU-M24) Document 10/17/19 14:00 [id number] (Rec: 10/17/19 14:39 [id number] ICU-C12) Document 10/17/19 18:00 [id number] (Rec: 10/17/19 20:31 [id number] ICU-C21) Document 10/18/19 09:00 [id number] (Rec: 10/18/19 09:20 [id number] ICU-M24) Document 10/18/19 14:00 [id number] (Rec: 10/18/19 14:21 [id number] ICU-C12) Document 10/18/19 18:00 [id number] (Rec: 10/18/19 19:28 [id number] ICU-C22) Document 10/19/19 09:00 [id number] (Rec: 10/19/19 12:06 [id number] ICU-C12) Document 10/19/19 14:00 [id number] (Rec: 10/19/19 14:31 [id number] ICU-C12) Document 10/19/19 18:00 [id number] (Rec: 10/19/19 19:11 [id number] ICU-C12) Document 10/20/19 09:00 [id number] (Rec: 10/20/19 10:01 [id number] ICU-C12) Document 10/20/19 14:00 [id number] (Rec: 10/20/19 14:25 [id number] ICU-C12) Document 10/20/19 18:00 [id number] (Rec: 10/20/19 18:54 [id number] ICU-C12) Document 10/21/19 09:00 [id number] (Rec: 10/21/19 11:07 [id number] ICU-C16) Document 10/21/19 14:00 [id number] (Rec: 10/21/19 16:12 [id number] ICU-C16) Document 10/21/19 18:00 [id number] (Rec: 10/21/19 20:57 [id number] ICU-C06) Document 10/22/19 09:00 [id number] (Rec: 10/22/19 10:47 [id number] ICU-C15) Document 10/22/19 14:00 [id number] (Rec: 10/22/19 15:38 [id number] ICU-M24) Document 10/22/19 18:00 [id number] (Rec: 10/22/19 18:27 [id number] ICU-M24) Document 10/23/19 09:00 [id number] (Rec: 10/23/19 09:43 [id number] ICU-C15) Document 10/23/19 14:00 [id number] (Rec: 10/23/19 18:58 [id number] ICU-C16) Document 10/24/19 09:00 [id number] (Rec: 10/24/19 09:29 [id number] ICU-C12) Document 10/24/19 14:00 [id number] (Rec: 10/24/19 15:32 [id number] ICU-C12) Document 10/26/19 09:00 [id number] (Rec: 10/26/19 09:01 [id number] ICU-C15) Document 10/26/19 14:00 [id number] (Rec: 10/26/19 15:11 [id number] ICU-C15) Document 10/26/19 18:00 [id number] (Rec: 10/26/19 20:26 [id number] ICU-M24) Document 10/27/19 09:00 [id number] (Rec: 10/27/19 10:35 [id number] ICU-C20) Document 10/27/19 14:00 IOF0635 (Rec: 10/27/19 16:26 [id number] ICU-C12) Document 10/27/19 18:00 [id number] (Rec: 10/27/19 18:50 [id number] ICU-C16) Document 10/28/19 09:00 [id number] (Rec: 10/28/19 10:07 [id number] ICU-L03) Document 10/28/19 14:00 [id number] (Rec: 10/28/19 14:35 [id number] ICU-M24) Document 10/29/19 09:15 [id number] (Rec: 10/29/19 09:56 [id number] ICU-C12) Document 10/29/19 14:00 (Rec: 10/29/19 15:46 [facility]-C08) ADLs: Meal Record Start: 12/27/19 20: 41 Freq: Status: Active Protocol: Created 10/16/19 20:41 [id number] (Rec: 10/16/19 20:41 [id number] ICU-C12) Intake and Output Start: 10/16/19 15: 09 Freq: Q1HR Status: Active Protocol: Created 10/16/19 15:09 System (Rec: 10/16/19 15:09 System EDRM-C14) Document 10/29/19 23:52 [id number] (Rec: 10/29/19 23:54 [id number] ICU-C12) Document 10/30/19 00:00 [id number] (Rec: 10/30/19 01:13 [id number] ICU-C12) Document 10/30/19 01:00 [id number] (Rec: 10/30/19 01:13 [id number] ICU-C12) Document 10/30/19 02:00 [id number] (Rec: 10/30/19 02:55 [id number] ICU-C12) Document 10/30/19 03:00 [id number] (Rec: 10/30/19 04:07 [id number] ICU-C12) Document 10/30/19 04:00 [id number] (Rec: 10/30/19 04:13 [id number] ICU-C12) Document 10/30/19 05:00 [id number] (Rec: 10/30/19 05:18 [id number] ICU-C12) Document 10/30/19 06:00 [id number] (Rec: 10/30/19 06:24 [id number] ICU-C12) Document 10/30/19 08:00 [id number] (Rec: 10/30/19 08:24 [id number] ICU-C15) Document 10/30/19 09:55 [id number] (Rec: 10/30/19 09:55 [id number] ICU-C15) Document 10/30/19 11:00 WWR0733 (Rec: 10/30/19 11:20 BLB4573 ICU-M33) Document 10/30/19 12:00 KQC2963 (Rec: 10/30/19 13:17 NMZ2529 ICU-M33) Document 10/30/19 12:00 TQE8874 (Rec: 10/30/19 15:06 DVQ3827 ICU-M33) Document 10/30/19 13:00 OXS9351 (Rec: 10/30/19 13:17 LBQ1071 ICU-M33) Document 10/30/19 14:55 TPA2976 (Rec: 10/30/19 15:08 DNN7865 ICU-M33) Document 10/30/19 15:00 YQF6402 (Rec: 10/30/19 15:07 SJP8426 ICU-M33) Document 10/30/19 18:00 KSO0838 (Rec: 10/30/19 18:22 VDN8728 ICU-C15) Document 10/30/19 19:00 LGI5286 (Rec: 10/30/19 19:07 MSJ7391 ICU-C10) Document 10/30/19 20:00 SML1822 (Rec: 10/30/19 21:24 TXN4232 ICU-C15) Document 10/30/19 21:00 CNL4692 (Rec: 10/30/19 21:25 WFD9785 ICU-C15) Document 10/30/19 22:00 NQO8799 (Rec: 10/30/19 22:59 TSB8024 ICU-C15) Document 10/30/19 23:00 OTE9460 (Rec: 10/30/19 23:00 CLV4090 ICU-C15) Document 10/31/19 00:00 JEE3175 (Rec: 10/31/19 02:06 SWW0271 ICU-C15) Document 10/31/19 01:00 HIH6357 (Rec: 10/31/19 02:06 KVF6411 ICU-C15) Document 10/31/19 02:00 FYR1978 (Rec: 10/31/19 02:07 ZKY4253 ICU-C15) Document 10/31/19 02:36 BQN1183 (Rec: 10/31/19 02:36 GBS4608 ICU-C15) Document 10/31/19 04:00 UWL5730 (Rec: 10/31/19 05:20 VHR9069 ICU-C15) Document 10/31/19 05:00 ENP4149 (Rec: 10/31/19 05:21 SYT3388 ICU-C15) Document 10/31/19 05:54 AVM2398 (Rec: 10/31/19 05:56 EFM8410 ICU-C15) Document 10/31/19 07:00 PYV1252 (Rec: 10/31/19 07:53 ELO9712 ICU-C15) Document 10/31/19 08:00 ULG1311 (Rec: 10/31/19 08:04 MDM6084 ICU-C15) Document 10/31/19 09:00 EKO8977 (Rec: 10/31/19 09:05 GCR5139 ICU-C15) Document 10/31/19 09:05 HPH7093 (Rec: 10/31/19 09:05 AUG9000 ICU-C15) Document 10/31/19 10:00 EFD9726 (Rec: 10/31/19 10:49 FQQ1263 ICU-C15) Document 10/31/19 11:00 NDA5087 (Rec: 10/31/19 11:10 FZQ5427 ICU-M33) Document 10/31/19 13:00 KRB1958 (Rec: 10/31/19 14:15 KHK5399 ICU-C15) Document 10/31/19 14:00 RRC7955 (Rec: 10/31/19 15:28 GQN9212 ICU-C15) Document 10/31/19 15:00 LVS5813 (Rec: 10/31/19 15:28 ZVB1982 ICU-C15) Document 10/31/19 16:00 GSF2124 (Rec: 10/31/19 17:08 GJO4984 ICU-C15) Document 10/31/19 17:00 VDC4151 (Rec: 10/31/19 17:08 BBL2950 ICU-C15) Document 10/31/19 18:00 OLE6962 (Rec: 10/31/19 18:01 DYV7487 ICU-C15) Document 10/31/19 19:00 RPZ3189 (Rec: 10/31/19 21:21 POQ6084 ICU-C15) Document 10/31/19 20:00 BON3330 (Rec: 10/31/19 21:30 ZEQ8501 ICU-C15) Document 10/31/19 21:00 RFR2599 (Rec: 10/31/19 21:31 LZL8813 ICU-C15) Document 10/31/19 22:00 UON9609 (Rec: 10/31/19 22:10 NDD0959 ICU-C15) Document 10/31/19 23:00 JOQ8023 (Rec: 10/31/19 23:15 TRE4689 ICU-C15) Document 10/31/19 23:47 DAS1046 (Rec: 10/31/19 23:53 HAO9217 ICU-C15) Document 11/01/19 00:57 JZF3496 (Rec: 11/01/19 00:58 VLK1184 ICU-M33) Document 11/01/19 02:00 GZL1408 (Rec: 11/01/19 02:23 RCP1099 ICU-C15) Document 11/01/19 03:00 YTV4607 (Rec: 11/01/19 03:04 DHQ5167 ICU-M33) Document 11/01/19 04:00 BAU1812 (Rec: 11/01/19 05:23 GMW1416 ICU-C15) Document 11/01/19 05:00 YTR8033 (Rec: 11/01/19 05:27 PKN1434 ICU-C15) Document 11/01/19 06:00 QHF0477 (Rec: 11/01/19 06:29 ACC1061 ICU-C15) Document 11/01/19 06:50 UHC5989 (Rec: 11/01/19 06:51 RKP1315 ICU-M33) Document 11/01/19 08:00 DGS2413 (Rec: 11/01/19 10:28 KXO2081 ICU-C15) Document 11/01/19 09:00 GDL4018 (Rec: 11/01/19 10:28 YYE6878 ICU-C15) Document 11/01/19 10:27 ETQ2192 (Rec: 11/01/19 10:28 EFD6707 ICU-C15) Document 11/01/19 12:00 YPM9661 (Rec: 11/01/19 12:25 KTF9355 ICU-M33) Document 11/01/19 14:00 FKD3048 (Rec: 11/01/19 15:25 NMB4879 ICU-C15) Document 11/01/19 15:00 TQI3284 (Rec: 11/01/19 15:25 DOS6915 ICU-C15) Document 11/01/19 16:00 IGC6763 (Rec: 11/01/19 18:23 TAV0301 ICU-C15) Document 11/01/19 18:00 JDF0985 (Rec: 11/01/19 18:23 NUB3988 ICU-C15) Document 11/01/19 20:00 POA4609 (Rec: 11/01/19 20:23 YTM1162 ICU-M33) Document 11/01/19 21:00 HIH4439 (Rec: 11/01/19 22:44 EBW3188 ICU-C16) Document 11/01/19 22:00 NSU6111 (Rec: 11/01/19 22:44 XGK3858 ICU-C16) Document 11/01/19 23:00 HYD0620 (Rec: 11/01/19 23:23 WZH6839 ICU-C16) Document 11/01/19 23:49 TWO6281 (Rec: 11/01/19 23:49 SLT8146 ICU-M33) Document 11/02/19 02:00 ZLA3868 (Rec: 11/02/19 02:49 CQT0857 ICU-C16) Document 11/02/19 03:00 PFU1967 (Rec: 11/02/19 03:23 EEZ2597 ICU-C16) Document 11/02/19 04:00 WTB9554 (Rec: 11/02/19 05:22 XDW5167 ICU-C16) Document 11/02/19 05:00 SIL8708 (Rec: 11/02/19 05:22 VDL3305 ICU-C16) Document 11/02/19 06:00 EBR1110 (Rec: 11/02/19 06:07 IIY9924 ICU-C16) Document 11/02/19 07:00 CYU3455 (Rec: 11/02/19 07:13 YQR6991 ICU-M33) Document 11/02/19 08:00 QKT4043 (Rec: 11/02/19 09:00 JPV9272 ICU-M33) Document 11/02/19 09:00 CHS9256 (Rec: 11/02/19 09:00 FVC7571 ICU-M33) Document 11/02/19 10:00 QJB5543 (Rec: 11/02/19 10:35 HJJ9303 IMG-M07) Intake and Output Start: 10/16/19 19: 43 Freq: Q1HR Status: Inactive Protocol: Created 10/16/19 19:43 System (Rec: 10/16/19 19:43 System ICU-C12) Document 10/16/19 22:00 BPN5778 (Rec: 10/16/19 22:54 TYY7260 ICU-C12) Document 10/17/19 06:00 NZW3758 (Rec: 10/17/19 06:12 NLD2666 ICU-C12) Document 10/17/19 21:00 CTW2540 (Rec: 10/17/19 21:35 OSN2548 ICU-C12) Document 10/17/19 22:00 WEF2819 (Rec: 10/17/19 22:04 DRW1391 ICU-C12) Document 10/18/19 02:54 DGA1577 (Rec: 10/18/19 02:54 BOE8700 ICU-C12) Document 10/18/19 06:00 PXI7320 (Rec: 10/18/19 06:11 LLK3312 ICU-C11) Document 10/18/19 11:36 JYG1542 (Rec: 10/18/19 11:36 LHT4430 ICU-M24) Document 10/18/19 17:25 CDN3176 (Rec: 10/18/19 17:25 SZK3350 ICU-M24) Document 10/18/19 20:20 IER6898 (Rec: 10/18/19 20:21 XWK6870 ICU-C11) Document 10/18/19 21:08 HES5252 (Rec: 10/18/19 21:08 PZL5595 ICU-C11) Document 10/18/19 22:00 FTA0337 (Rec: 10/18/19 22:20 KBR2899 ICU-C11) Document 10/19/19 03:00 HUE5829 (Rec: 10/19/19 03:25 COF5472 ICU-C12) Document 10/19/19 04:00 JNW1950 (Rec: 10/19/19 04:54 FKR0441 ICU-C12) Document 10/19/19 05:00 MDE7353 (Rec: 10/19/19 05:02 GFJ9315 ICU-C12) Document 10/19/19 05:57 AOQ5354 (Rec: 10/19/19 05:58 EYJ2085 ICU-M24) Document 10/19/19 07:00 LLG8286 (Rec: 10/19/19 08:23 ASK8215 ICU-M24) Document 10/19/19 08:00 YNE3112 (Rec: 10/19/19 08:24 GYO3579 ICU-M24) Document 10/19/19 09:00 FWR4486 (Rec: 10/19/19 09:27 HSK7631 ICU-C12) Document 10/19/19 10:00 OBE6539 (Rec: 10/19/19 10:35 QXE5426 ICU-C12) Document 10/19/19 11:00 WBM3736 (Rec: 10/19/19 12:06 OBP7271 ICU-C12) Document 10/19/19 12:00 USF7173 (Rec: 10/19/19 12:15 WGP2689 ICU-C12) Document 10/19/19 13:00 VRX8483 (Rec: 10/19/19 13:07 GRT2443 ICU-C12) Document 10/19/19 14:00 RBH3487 (Rec: 10/19/19 14:31 SCH9527 ICU-C12) Document 10/19/19 16:23 ZKY5925 (Rec: 10/19/19 16:23 QLD2531 ICU-C10) Document 10/19/19 17:00 HEZ1053 (Rec: 10/19/19 18:15 PXI9260 ICU-C10) Document 10/19/19 18:16 KKB1341 (Rec: 10/19/19 18:18 BQY3414 ICU-C10) Document 10/19/19 20:00 RDB2442 (Rec: 10/19/19 20:28 QRY7028 ICU-C12) Document 10/19/19 21:00 XPU2244 (Rec: 10/19/19 21:03 ZBX1187 ICU-C12) Document 10/19/19 22:00 VWW3933 (Rec: 10/19/19 22:37 NRK0780 ICU-C12) Document 10/19/19 23:00 RLQ8175 (Rec: 10/19/19 23:21 YDM1347 ICU-C12) Document 10/20/19 00:00 IJM8565 (Rec: 10/20/19 00:16 PLL0038 ICU-C12) Document 10/20/19 01:00 OAY4862 (Rec: 10/20/19 01:56 TGU3883 ICU-M24) Document 10/20/19 02:00 CVF4277 (Rec: 10/20/19 02:50 BSJ5264 ICU-C12) Document 10/20/19 03:00 IAU9568 (Rec: 10/20/19 03:41 DGN1621 ICU-C12) Document 10/20/19 04:00 ZQN6027 (Rec: 10/20/19 04:20 UWB9811 ICU-C12) Document 10/20/19 05:00 HJH3407 (Rec: 10/20/19 05:04 YLL7320 ICU-C12) Document 10/20/19 06:00 BKI7880 (Rec: 10/20/19 06:04 YBP8832 ICU-C12) Document 10/20/19 07:00 XZF0763 (Rec: 10/20/19 08:34 NFE2792 ICU-C12) Document 10/20/19 07:00 PTF6932 (Rec: 10/20/19 08:19 JRR6083 ICU-M24) Document 10/20/19 08:00 QFP0638 (Rec: 10/20/19 08:34 RCG3840 ICU-C12) Document 10/20/19 08:00 TCO2681 (Rec: 10/20/19 08:19 TWM7240 ICU-M24) Document 10/20/19 09:00 NRX6635 (Rec: 10/20/19 09:19 VFC2502 ICU-C12) Document 10/20/19 10:00 VJY5326 (Rec: 10/20/19 10:01 CMA5197 ICU-C12) Document 10/20/19 11:00 YSV5337 (Rec: 10/20/19 11:02 KDY9723 ICU-C12) Document 10/20/19 12:00 KUE1801 (Rec: 10/20/19 13:16 KHS4365 ICU-C12) Document 10/20/19 13:00 VQB2417 (Rec: 10/20/19 13:16 TPH2068 ICU-C12) Document 10/20/19 14:00 KTQ3611 (Rec: 10/20/19 14:15 JDQ3320 ICU-C12) Document 10/20/19 15:00 CDK5783 (Rec: 10/20/19 15:59 NLW2536 ICU-C12) Document 10/20/19 16:00 HTK6415 (Rec: 10/20/19 16:11 HLQ3761 ICU-C12) Document 10/20/19 17:00 JMN3259 (Rec: 10/20/19 17:45 XQW3919 ICU-C12) Document 10/20/19 18:00 JKK7018 (Rec: 10/20/19 18:53 HEB1309 ICU-C12) Document 10/20/19 18:54 XEO8972 (Rec: 10/20/19 18:59 QBX0938 ICU-C12) Co-Sign 10/20/19 18:54 BFS6034 Document 10/20/19 20:00 ZHD8969 (Rec: 10/20/19 21:12 TVG0156 ICU-C16) Document 10/20/19 21:00 XTE5479 (Rec: 10/20/19 21:12 PIC8806 ICU-C16) Document 10/20/19 22:00 QAY2316 (Rec: 10/20/19 22:11 KUP4249 ICU-C16) Document 10/20/19 23:00 INU3302 (Rec: 10/20/19 23:05 NTI5400 ICU-C16) Document 10/21/19 00:00 HVB4018 (Rec: 10/21/19 00:11 CIG7096 ICU-C16) Document 10/21/19 01:00 TSG6555 (Rec: 10/21/19 01:03 XGT6489 ICU-C16) Document 10/21/19 02:00 QXI4371 (Rec: 10/21/19 02:04 GQF1504 ICU-C16) Document 10/21/19 03:00 HPH5728 (Rec: 10/21/19 03:05 SLK1115 ICU-C16) Document 10/21/19 04:00 YKW4791 (Rec: 10/21/19 04:10 OKA6022 ICU-C16) Document 10/21/19 05:00 QHI5980 (Rec: 10/21/19 05:01 ACP9561 ICU-C16) Document 10/21/19 06:00 GOO8847 (Rec: 10/21/19 06:08 DEV7549 ICU-C16) Document 10/21/19 07:00 CWP4073 (Rec: 10/21/19 07:03 ORC9684 ICU-C16) Document 10/21/19 08:00 EJG2783 (Rec: 10/21/19 08:56 XKI7885 ICU-C16) Document 10/21/19 09:00 RIB0796 (Rec: 10/21/19 10:03 PQZ1131 ICU-C16) Document 10/21/19 10:00 OQI2677 (Rec: 10/21/19 10:03 QKJ8260 ICU-C16) Document 10/21/19 11:00 LJT7301 (Rec: 10/21/19 11:22 MXB7293 ICU-C16) Document 10/21/19 14:00 CNO3245 (Rec: 10/21/19 14:04 JCS3569 ICU-C16) Document 10/21/19 15:00 YLR9503 (Rec: 10/21/19 15:13 PAS1499 ICU-C16) Document 10/21/19 17:00 XZE9454 (Rec: 10/21/19 17:39 CBV3005 ICU-C16) Document 10/21/19 17:59 KNY6566 (Rec: 10/21/19 17:59 SIM8634 ICU-C16) Document 10/21/19 20:00 QJV9481 (Rec: 10/21/19 20:57 MPW7754 ICU-C06) Document 10/21/19 21:00 BYL6613 (Rec: 10/21/19 21:40 HPQ0707 ICU-C06) Document 10/21/19 22:00 NPZ5363 (Rec: 10/21/19 22:16 FBT4547 ICU-M24) Document 10/21/19 22:54 BWN7312 (Rec: 10/21/19 22:54 KOH8241 ICU-C06) Document 10/22/19 00:00 CFI2799 (Rec: 10/22/19 00:10 YBG9588 ICU-C06) Document 10/22/19 01:00 USI1677 (Rec: 10/22/19 01:12 GNU7624 ICU-C06) Document 10/22/19 03:00 RUM3523 (Rec: 10/22/19 03:15 WDL2821 ICU-C06) Document 10/22/19 04:00 BRN8199 (Rec: 10/22/19 04:21 THK2907 ICU-C06) Document 10/22/19 05:00 WGF2879 (Rec: 10/22/19 05:02 DQW6741 ICU-C06) Document 10/22/19 06:00 FXE2694 (Rec: 10/22/19 06:30 PMW7937 ICU-C06) Document 10/22/19 07:00 TEU9742 (Rec: 10/22/19 09:35 GJX4758 ICU-M24) Document 10/22/19 08:00 EAK6771 (Rec: 10/22/19 09:35 ZHO9286 ICU-M24) Document 10/22/19 09:00 CVP0136 (Rec: 10/22/19 09:35 TGN1001 ICU-M24) Document 10/22/19 10:00 QWP6755 (Rec: 10/22/19 11:41 VMY6272 ICU-M24) Document 10/22/19 11:00 HSM2335 (Rec: 10/22/19 11:41 REF0313 ICU-M24) Document 10/22/19 12:00 WZH0507 (Rec: 10/22/19 12:39 YHM7359 ICU-M24) Document 10/22/19 13:00 EEA3076 (Rec: 10/22/19 15:37 UKG0198 ICU-M24) Document 10/22/19 14:00 MZO6239 (Rec: 10/22/19 15:37 JDA8378 ICU-M24) Document 10/22/19 15:00 TSE0885 (Rec: 10/22/19 15:37 RIO5551 ICU-M24) Document 10/22/19 16:00 ASK7133 (Rec: 10/22/19 16:13 PYF2046 ICU-M24) Document 10/22/19 17:00 CAB6536 (Rec: 10/22/19 17:28 XDM8728 ICU-M24) Document 10/22/19 18:00 BLZ0319 (Rec: 10/22/19 18:09 NWR4124 ICU-M24) Document 10/22/19 19:23 XAQ9910 (Rec: 10/22/19 19:41 TTZ4364 ICU-M24) Document 10/22/19 21:26 TMC2742 (Rec: 10/22/19 21:28 HWD0132 ICU-L03) Document 10/22/19 22:00 MEE5698 (Rec: 10/22/19 22:04 VZY0852 ICU-L03) Document 10/22/19 23:30 VNP3178 (Rec: 10/22/19 23:35 ICB2626 ICU-L03) Document 10/23/19 02:00 ZZB3520 (Rec: 10/23/19 02:32 JWX2625 ICU-L03) Document 10/23/19 03:00 LPY0780 (Rec: 10/23/19 03:04 KBS4715 ICU-L03) Document 10/23/19 04:00 JWY3541 (Rec: 10/23/19 04:17 ZPN6100 ICU-M24) Document 10/23/19 05:00 ZVV3122 (Rec: 10/23/19 05:43 KUO2574 ICU-L03) Document 10/23/19 06:00 JFK6885 (Rec: 10/23/19 06:36 IDF7354 ICU-L03) Document 10/23/19 07:00 DOO4932 (Rec: 10/23/19 07:49 ZIF3394 ICU-M24) Document 10/23/19 08:00 LLK9819 (Rec: 10/23/19 10:24 MZL4072 ICU-M24) Document 10/23/19 09:00 JUP4582 (Rec: 10/23/19 10:24 ENM3987 ICU-M24) Document 10/23/19 10:00 AQF6069 (Rec: 10/23/19 10:24 RKN8377 ICU-M24) Document 10/23/19 11:00 YAK7592 (Rec: 10/23/19 12:42 RQD5578 ICU-M24) Document 10/23/19 12:00 GLZ6683 (Rec: 10/23/19 12:42 EDD9745 ICU-M24) Document 10/23/19 18:43 CRV0889 (Rec: 10/23/19 18:44 GIY7215 ICU-C16) Document 10/23/19 19:00 LHG7485 (Rec: 10/23/19 19:01 TLB3805 ICU-C16) Document 10/23/19 20:00 MNC8900 (Rec: 10/23/19 20:44 PVP1937 ICU-C12) Document 10/23/19 21:00 EXT2207 (Rec: 10/23/19 21:00 EPY1637 ICU-C12) Document 10/23/19 23:00 BLB9892 (Rec: 10/23/19 23:06 IGW8383 ICU-C12) Document 10/24/19 00:00 QYA5717 (Rec: 10/24/19 00:05 XIS6607 ICU-C12) Document 10/24/19 02:15 BNE3537 (Rec: 10/24/19 02:17 DEN3499 ICU-C12) Document 10/24/19 03:00 AYQ1028 (Rec: 10/24/19 03:02 UJS9613 ICU-C12) Document 10/24/19 04:00 PPW7640 (Rec: 10/24/19 04:05 GVH5971 ICU-C12) Document 10/24/19 05:00 CIP8520 (Rec: 10/24/19 05:05 IJB0670 ICU-C12) Document 10/24/19 06:00 HOV5694 (Rec: 10/24/19 06:07 EBJ4075 ICU-C12) Document 10/24/19 07:24 VMQ7475 (Rec: 10/24/19 07:24 KHM4979 ICU-C12) Document 10/24/19 08:00 DVF1770 (Rec: 10/24/19 09:05 SUK9884 ICU-C12) Document 10/24/19 09:00 QVE3767 (Rec: 10/24/19 09:29 MHS1386 ICU-C12) Document 10/24/19 10:00 LZG6728 (Rec: 10/24/19 11:04 DWI6434 ICU-C12) Document 10/24/19 11:00 SQS2823 (Rec: 10/24/19 11:04 GMR2655 ICU-C12) Document 10/24/19 12:00 HCK0636 (Rec: 10/24/19 13:40 SLH1633 ICU-C12) Document 10/24/19 13:00 ZIK6020 (Rec: 10/24/19 13:40 QXX7186 ICU-C12) Document 10/24/19 15:00 HAF7179 (Rec: 10/24/19 15:35 EOG7330 ICU-C12) Document 10/24/19 17:27 NWG3021 (Rec: 10/24/19 17:27 BQC9410 ICU-C12) Document 10/24/19 17:55 ZQQ7696 (Rec: 10/24/19 17:55 EKM6612 ICU-C12) Document 10/24/19 19:00 HFO9227 (Rec: 10/24/19 19:15 VLF7847 ICU-C12) Document 10/24/19 20:00 EQC7200 (Rec: 10/24/19 21:02 ARV4742 ICU-C12) Document 10/24/19 21:00 NEL7124 (Rec: 10/24/19 21:05 JIA4063 ICU-C12) Document 10/24/19 22:00 LQC7012 (Rec: 10/24/19 22:15 SSD1722 ICU-C12) Document 10/24/19 23:00 SVK1934 (Rec: 10/25/19 00:45 HFM0644 ICU-C12) Document 10/25/19 00:00 DPP1521 (Rec: 10/25/19 00:45 NJN0829 ICU-C12) Document 10/25/19 01:00 NEL8696 (Rec: 10/25/19 02:01 TAC4252 ICU-C12) Document 10/25/19 02:00 WSO0726 (Rec: 10/25/19 02:02 YHV8539 ICU-C12) Document 10/25/19 03:00 ODR9015 (Rec: 10/25/19 03:06 GAC9383 ICU-C12) Document 10/25/19 03:59 SRF5831 (Rec: 10/25/19 04:09 OQX9920 ICU-C12) Document 10/25/19 05:00 IJN5434 (Rec: 10/25/19 05:03 EIB6511 ICU-C12) Document 10/25/19 06:00 UWS8298 (Rec: 10/25/19 06:07 BGG7517 ICU-C12) Document 10/25/19 07:00 DRY3036 (Rec: 10/25/19 07:11 WRN2046 ICU-C12) Document 10/25/19 10:00 MJU4541 (Rec: 10/25/19 10:03 PJX0240 ICU-C12) Document 10/25/19 11:00 AIY7885 (Rec: 10/25/19 11:13 XHS5613 ICU-C12) Document 10/25/19 12:00 JZK2305 (Rec: 10/25/19 12:16 BDF3872 ICU-C12) Document 10/25/19 13:08 VIK7761 (Rec: 10/25/19 13:09 QOI7384 ICU-C12) Document 10/25/19 16:00 LDZ8072 (Rec: 10/25/19 17:18 BGI9421 ICU-C12) Document 10/25/19 17:29 EJJ9377 (Rec: 10/25/19 17:29 ASC0970 ICU-C12) Document 10/25/19 18:00 TAQ2294 (Rec: 10/25/19 18:08 YJY6713 ICU-C12) Document 10/25/19 19:00 YRO9812 (Rec: 10/25/19 20:58 ZZY6216 ICU-L03) Document 10/25/19 20:00 KCF3280 (Rec: 10/25/19 21:09 OOI3112 ICU-L03) Document 10/25/19 21:00 OPU0722 (Rec: 10/25/19 21:13 KPD2151 ICU-L03) Document 10/25/19 22:00 BYW3388 (Rec: 10/25/19 22:41 HAD4886 ICU-L03) Document 10/25/19 22:56 VSD3594 (Rec: 10/25/19 22:56 WQY0733 ICU-L03) Document 10/26/19 00:00 JFQ6349 (Rec: 10/26/19 00:49 RGJ2236 ICU-L03) Document 10/26/19 01:00 ZTZ2890 (Rec: 10/26/19 01:08 DBP6684 ICU-L03) Document 10/26/19 02:00 GNB2548 (Rec: 10/26/19 02:10 BBL9933 ICU-L03) Document 10/26/19 02:55 TOI5789 (Rec: 10/26/19 02:55 FYS6791 ICU-L03) Document 10/26/19 03:55 BIX7185 (Rec: 10/26/19 04:03 VJX9002 ICU-L03) Document 10/26/19 05:00 VTE6341 (Rec: 10/26/19 05:15 RTW5707 ICU-L03) Document 10/26/19 06:00 DTC2749 (Rec: 10/26/19 06:12 WFT8615 ICU-L03) Document 10/26/19 07:00 KHW8439 (Rec: 10/26/19 07:24 MEP8553 ICU-C15) Document 10/26/19 08:00 ZQB2080 (Rec: 10/26/19 08:31 AUS0109 ICU-C15) Document 10/26/19 09:57 LNJ4097 (Rec: 10/26/19 09:57 ZXB1250 ICU-C15) Document 10/26/19 11:00 ZIP2944 (Rec: 10/26/19 11:20 PVG6011 ICU-C15) Document 10/26/19 13:00 UOZ8923 (Rec: 10/26/19 13:30 UBX6751 ICU-M24) Document 10/26/19 15:00 ZHB1863 (Rec: 10/26/19 15:12 VMK9392 ICU-C15) Document 10/26/19 16:00 YBG6499 (Rec: 10/26/19 17:13 NBX3827 ICU-C15) Document 10/26/19 17:00 EDB1756 (Rec: 10/26/19 17:13 MQD8003 ICU-C15) Document 10/26/19 17:42 MOP0852 (Rec: 10/26/19 17:42 ZPD9410 ICU-M24) Document 10/26/19 19:00 LFY7101 (Rec: 10/26/19 19:20 XVQ7607 ICU-M24) Document 10/26/19 20:00 LIL3704 (Rec: 10/26/19 20:25 EXB4210 ICU-M24) Document 10/26/19 20:56 XWQ9279 (Rec: 10/26/19 20:56 SHI5729 ICU-M24) Document 10/26/19 22:00 HQE8134 (Rec: 10/26/19 22:34 XLF6521 ICU-C12) Document 10/26/19 23:00 DNG4658 (Rec: 10/26/19 23:31 UYS8007 ICU-M24) Document 10/27/19 00:00 IZV8131 (Rec: 10/27/19 00:18 EJZ9467 ICU-C12) Document 10/27/19 00:39 MPP2288 (Rec: 10/27/19 00:40 HCP9830 ICU-M24) Document 10/27/19 02:00 JUJ4200 (Rec: 10/27/19 02:10 EEO1905 ICU-C12) Document 10/27/19 02:57 HSZ5939 (Rec: 10/27/19 02:58 XCJ4972 ICU-C12) Document 10/27/19 04:00 VRG0125 (Rec: 10/27/19 04:28 ZFP5178 ICU-C12) Document 10/27/19 04:52 SEC7417 (Rec: 10/27/19 04:52 YRV6532 ICU-M24) Document 10/27/19 04:59 RMZ3573 (Rec: 10/27/19 04:59 HLV9379 ICU-C12) Document 10/27/19 06:00 XGW7174 (Rec: 10/27/19 06:02 JGQ0365 ICU-C12) Document 10/27/19 07:00 OAP7579 (Rec: 10/27/19 07:35 RNT3622 ICU-C12) Document 10/27/19 08:00 XOX9276 (Rec: 10/27/19 10:31 BTW3459 ICU-C12) Document 10/27/19 10:00 WUE8024 (Rec: 10/27/19 10:32 XJQ1455 ICU-C12) Document 10/27/19 11:00 QLA4035 (Rec: 10/27/19 11:43 TDN3872 ICU-M24) Document 10/27/19 11:43 QZQ8691 (Rec: 10/27/19 11:43 OPD9777 ICU-M24) Document 10/27/19 12:52 NJC1936 (Rec: 10/27/19 12:53 TRW9638 ICU-M24) Document 10/27/19 14:00 LYQ2919 (Rec: 10/27/19 14:26 ZUM5089 ICU-C12) Document 10/27/19 15:00 YVV9513 (Rec: 10/27/19 15:15 NFF5694 ICU-C12) Document 10/27/19 16:00 RAU8625 (Rec: 10/27/19 16:24 EID7924 ICU-C12) Document 10/27/19 17:00 WXU7194 (Rec: 10/27/19 17:24 HTY6149 ICU-M24) Document 10/27/19 18:00 BMC9868 (Rec: 10/27/19 18:41 SZX9055 ICU-C12) Document 10/27/19 21:00 ZJG9909 (Rec: 10/27/19 21:48 MQH7001 ICU-C15) Document 10/27/19 22:00 UYS2834 (Rec: 10/27/19 22:23 WFR2139 ICU-C15) Document 10/28/19 00:00 PBJ4931 (Rec: 10/28/19 00:18 LDD1115 ICU-C15) Document 10/28/19 01:00 TZI9986 (Rec: 10/28/19 01:21 WLF2182 ICU-C15) Document 10/28/19 02:59 WQL8479 (Rec: 10/28/19 02:59 MLX4662 ICU-C15) Document 10/28/19 05:00 XCO2843 (Rec: 10/28/19 05:04 CQT2162 ICU-C15) Document 10/28/19 06:00 IAT6745 (Rec: 10/28/19 06:52 WXX6623 ICU-M24) Document 10/28/19 07:00 ZRV3315 (Rec: 10/28/19 08:20 GBH3003 ICU-M24) Document 10/28/19 08:00 HLE8271 (Rec: 10/28/19 08:28 ZQF8538 ICU-M24) Document 10/28/19 09:00 TWZ4245 (Rec: 10/28/19 09:35 HIT9488 ICU-M24) Document 10/28/19 10:00 LTL5477 (Rec: 10/28/19 10:04 PJX8622 ICU-M24) Document 10/28/19 11:00 UVB9110 (Rec: 10/28/19 11:15 BYU2122 ICU-C12) Document 10/28/19 11:46 ITQ7837 (Rec: 10/28/19 11:46 YGQ0558 ICU-M24) Document 10/28/19 12:53 ZDG9734 (Rec: 10/28/19 12:54 CZR5150 ICU-C12) Document 10/28/19 14:00 AGT7400 (Rec: 10/28/19 14:35 CCV5848 ICU-M24) Document 10/28/19 15:00 VKC8029 (Rec: 10/28/19 15:24 CYJ8576 ICU-C12) Document 10/28/19 15:56 PLF9545 (Rec: 10/28/19 15:56 UNM4737 ICU-M24) Document 10/28/19 17:00 QSZ4367 (Rec: 10/28/19 17:26 HLV0957 ICU-M24) Document 10/28/19 18:00 IYE8755 (Rec: 10/28/19 18:10 YDC8770 ICU-M24) Document 10/28/19 21:00 PRU9748 (Rec: 10/28/19 21:33 VAE3525 ICU-C12) Document 10/28/19 22:00 EQT2076 (Rec: 10/28/19 22:05 UZS8462 ICU-C12) Document 10/28/19 23:00 IYS3902 (Rec: 10/28/19 23:59 ADB2175 ICU-C16) Document 10/28/19 23:59 CBA8185 (Rec: 10/28/19 23:59 WUP7827 ICU-C16) Document 10/29/19 01:00 SQQ8171 (Rec: 10/29/19 03:00 WTK0018 ICU-C16) Document 10/29/19 02:00 BTM0402 (Rec: 10/29/19 03:00 HPV5739 ICU-C16) Document 10/29/19 03:00 TVY4637 (Rec: 10/29/19 03:00 QMJ7589 ICU-C16) Document 10/29/19 04:00 PWO3379 (Rec: 10/29/19 05:05 FHS0631 ICU-C16) Document 10/29/19 05:00 BCE7001 (Rec: 10/29/19 05:05 ELR3499 ICU-C16) Document 10/29/19 06:22 DEP5021 (Rec: 10/29/19 06:22 NXD3859 ICU-M24) Document 10/29/19 07:00 MAG2502 (Rec: 10/29/19 07:05 SAS1486 ICU-M24) Document 10/29/19 08:00 RHA7981 (Rec: 10/29/19 10:12 TUZ9525 ICU-C12) Document 10/29/19 10:00 NAV4582 (Rec: 10/29/19 10:12 [id number] ICU-C12) Document 10/29/19 11:00 [id number] (Rec: 10/29/19 11:24 [id number] ICU-C12) Document 10/29/19 12:00 [id number] (Rec: 10/29/19 12:33 [id number] ICU-C12) Document 10/29/19 13:28 [id number] (Rec: 10/29/19 13:28 [id number] ICU-C12) Intake and Output Start: 10/16/19 20: 41 Freq: Q1HR Status: Complete Protocol: Created 10/16/19 20:41 [id number] (Rec: 10/16/19 20:41 [id number] ICU-C12) Document 10/16/19 21:00 [id number] (Rec: 10/16/19 21:24 [id number] ICU-C12) Eyes: No Scleral Icterus, PERRLA Ears/Nose/Mouth/Throat: Mucous Membranes Moist Neck: NL Appearance and Movements; NL JVP, Trachea Midline Cardiovascular: - - distant HS Abdominal: NL Sounds; No Tenderness; No Distention, No Hepatosplenomegaly Extremities: - - Weak DP pulse bilateral Neurological: - - Alert and oriented to person and confused - Assessment Assessment: 69yo male with end stage COPD, CHF, pneumonia an CKD intubated family requesting extubation - Plan Consult Plan (MU): Hospice Plan: Long discussion with about goals of care. Pt had just been discharged from [facility] hospital. doesn't want pt to suffer. He has had a rough 2 years being in and out of the hospital(200 days in 2018 & 180 days in 2019) and a decreasing quality of life. In the last 2-3 months it has gotten worse he is sleeping 18- 20hrs a day. realizes her isn't going to get better and is requiring increasing amounts of oxygen while on the vent. She doesn't want him to suffer or gasp for breath. Family has elected to take pt off the vent because they don't want him to suffer and he wouldn't want to live like this. KPS 20%, PPS 10%. - Time On Unit Date of Evaluation: 11/02/19 Hospice Consult Time in: 11:00 Hospice Consult Time Out: 12:00 Hospice Consult Time Total: 60 > 50% of Time Spend In Counseling or Coordinating Care: Yes
[2019-11-02] MEDS: Morphine 10 MG/ML VIAL (1 ml) IV PRN ×4 (13:54→14:52)
[2019-11-02] MEDS: LORazepam INJ* 2 MG/ML 1 ML VIAL IV PUSH PRN ×3 (13:56→14:20)
--- NOTE | 2019-11-02 14:01 | PN ---
Progress Note - Progress Note Date of Service: 11/02/19 Note: Attenting Note Noted findings from prior days. 69y M w/pmhx of CAD, AFib, DM, CKD3 (baseline 1.2), anxiety/PTSD, COPD on home O2 (3.5-4L), JOSIAH on Bipap, chronic moderate LV systolic heart failure (with mod- MR and mod-AI), left elbow osteo on keflex, chronic pain, neuropathy; [facility]; presented to [facility] [place] ER 10/16 with shortness of breath, sats low 90s, CXR consistent with pulmonary congestion, progressive hypoxia, admitted to ICU. He has since admission and throughout long ICU course been requiring intermittent and continuous NIV for respiratory support and acute hypercapnea, being treated for acute delirium with antipsychotics/prn bdz/ precedex, ongoing diuresis. Transferred to medical floor 10/29 but developed worsening delirium/agitation, respiratory distress, requiring precedex/ativan, NIV, transferred back to ICU 10/29 evening. Intubated on 10/31 for hypoxia. He is currently intubated, being treated for severe sepsis from a likely left lower lobe pneumonia, on 100% fio2, encephalopathy, oliguria. Patient had made wishes to his family about being intubated more than 48 hours. Noted that he has been in and out of hospitals, including the [place], with recent respiratory failure also requiring intubation in [place]. Given his worsening oxygen requirements, and ongoing discussion with about his GOC and overall prognosis and condition, family was approached to discuss his prognosis once again. Palliative care as involved. understood his poor status and that he looked like he was 'suffering'. After much discussion, and a decision amongst the family, she has decided that a compassionate wean off the ventilator would be best in regard to the patients wishes and desired Goals of Care. Options were discussed about maintaining current status but likely to deteriorate further, which would not align with the wishes of the patient. Decision was made for withdrawal of ventilator support, and transitioning to comfort care pathway, which would be in best interest and in alignment with the wishes of the patient. HE is currently unable to make decisions given his encephalopathy. Patient to be transitioned to comfort pathway and extubated to [facility]. Appreciate palliative care experience. I have reviewed SERVICE REPRESENTATIVE Brianne's note and discussed case with her. Agree with plan. Kevin Hanna MD Field Cane Scaler
--- NOTE | 2019-11-02 15:57 | PN ---
Progress Note - Progress Note Date of Service: 11/02/19 Note: Note Patient was taken off ventilator earlier, comfort care pathway. Family at bedside. He is unresponsive, no spontaneous respirations, no palpable pulse, no heart sounds auscultated. Tele demonstrates asystole. Patient pronouned at 1550 on 11/02/2019 Family/ at bedside, aware. Kevin Hanna MD Machine Welder
[2019-11-02 15:59] VITALS: BP 78/44
--- NOTE | 2019-11-02 16:40 | DS ---
Discharge Summary Patient Name: Eb Berrios Date of Admission: 10/16/2019 Date of Discharge: 11/02/2019 Attending: Dr Kevin Hanna (spring fitter helper) and Coreen Decker SHEET TAILER ; prior - Dr Melissa Weems, Dr Vera Ash, Dr Sylvia Lepe Consultants: none Admitting Diagnoses: 1) acute on chronic hypoxic respiratory failure 2) Acute on chronic decompensated systolic heart failure 3) Delirium Discharge Diagnoses: 1) Acute on chronic hypoxic respiratory failure 2) Left lower lobe pneumonia, unspecified organisms 3) Severe Sepsis 4) Delirium 5) acute kidney injury on CKD 6) thrombocytopenia secondary to sepsis 7) acute on chronic decompensated LV systolic heart failure HPI/Hospital Course: 69y M w/pmhx of CAD, AFib, DM, CKD3 (baseline 1.2), anxiety/PTSD, COPD on home O2 (3.5-4L), JOSIAH on Bipap, chronic moderate LV systolic heart failure (with mod- MR and mod-AI), 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 He has since admission and throughout long ICU course been requiring intermittent and continuous NIV for respiratory support and acute hypercapnea, being treated for acute delirium with antipsychotics/prn bdz/ precedex, ongoing diuresis. Transferred to medical floor 10/29 but developed worsening delirium/agitation, respiratory distress, requiring precedex/ativan, NIV, transferred back to ICU 10/29 evening. Intubated on 10/31 for hypoxia. He remained intubated 11/02/2019, being treated for severe sepsis from a likely left lower lobe pneumonia, on 100% fio2, encephalopathy, oliguria. After long discussions with family, initiated days prior with Dr Soria and prior teams, patient had stated to family/ that he would not like to be intubated more than 48 hours, and was reluctant to even be intubated this admission. He was noted to have significant hospitalizations last year 2018 and in 2017 with the latest [facility] requiring intubation. Given his poor overall quality of life , declining functional status and recurrent hospitalizations in the setting of multiple medical comorbidities which have not been improving but overall worsening the decided to pursue a comfort care pathway, respecting the wishes of her /the patient. He was compassionately weaned and extubated from ventilator on 11/02/2019 and started on comfort care pathway. Appropriate Benzodiazepines and opiates were given for any distress. Palliative care assistance was appreciated. Patient on 11/02/2019 at 1550, with family at bedside. Procedures/Imaging: Computer Tomography of Chest and abdomen and pelvis; Transthoracic echocardiogram Laboratory/Data: see chart Discharge Medications: none Diet: none Activity: none Condition upon discharge: on 11/02/2019 at 1550 Disposition: on 11/02/2019 at 1550 Code Status: DNR Recommendations: none Follow-up: none Total Discharge time 35 minutes Kevin Hanna MD Piece Hand (Electronically Signed)
[2019-11-06] MEDS ORDERED: Vancomycin Trough Check NOTE FOLLOW UP ONE (06:00)
== END 2019-11-02 15:50 | disposition expired | DRG 208 ==
LOC: ED 15:00 → MEDTELE 18:43 → ICU 19:52 → MEDTELE 10-29 11:13 → ICU 10-29 16:51
PROVIDERS: ADMIT Internal Medicine; ATTEND Internal Medicine Critical Care Medicine
PROC: 02HV33Z Insertion of Infusion Device into Superior Vena Cava, Percutaneous Approach (ICD-10-PCS; 2019-10-26)
PROC: 3E043XZ Introduction of Vasopressor into Central Vein, Percutaneous Approach (ICD-10-PCS; 2019-10-26)
PROC: 5A09357 Assistance with Respiratory Ventilation, Less than 24 Consecutive Hours, Continuous Positive Airway Pressure (ICD-10-PCS; 2019-10-30)
PROC: 5A1945Z Respiratory Ventilation, 24-96 Consecutive Hours (ICD-10-PCS; principal; 2019-10-31)
PROC: 0BH17EZ Insertion of Endotracheal Airway into Trachea, Via Natural or Artificial Opening (ICD-10-PCS; 2019-10-31)
DX: J96.21 Acute and chronic respiratory failure with hypoxia (principal); I50.23 Acute on chronic systolic (congestive) heart failure; J18.9 Pneumonia, unspecified organism; R65.20 Severe sepsis without septic shock; A41.9 Sepsis, unspecified organism; G93.41 Metabolic encephalopathy; F05 Delirium due to known physiological condition; N17.9 Acute kidney failure, unspecified; J44.0 Chronic obstructive pulmonary disease with (acute) lower respiratory infection; I13.0 Hypertensive heart and chronic kidney disease with heart failure and stage 1 through stage 4 chronic kidney disease, or unspecified chronic kidney disease; I42.9 Cardiomyopathy, unspecified; E87.0 Hyperosmolality and hypernatremia; M86.68 Other chronic osteomyelitis, other site; J96.22 Acute and chronic respiratory failure with hypercapnia; D69.59 Other secondary thrombocytopenia; I25.10 Atherosclerotic heart disease of native coronary artery without angina pectoris; I48.91 Unspecified atrial fibrillation; E11.22 Type 2 diabetes mellitus with diabetic chronic kidney disease; N18.3 Chronic kidney disease, stage 3 (moderate); F41.9 Anxiety disorder, unspecified; F43.10 Post-traumatic stress disorder, unspecified; G47.33 Obstructive sleep apnea (adult) (pediatric); I08.0 Rheumatic disorders of both mitral and aortic valves; G89.29 Other chronic pain; E11.40 Type 2 diabetes mellitus with diabetic neuropathy, unspecified; Z51.5 Encounter for palliative care; Z66 Do not resuscitate; E78.5 Hyperlipidemia, unspecified; E11.621 Type 2 diabetes mellitus with foot ulcer; L97.529 Non-pressure chronic ulcer of other part of left foot with unspecified severity; E11.69 Type 2 diabetes mellitus with other specified complication; I08.1 Rheumatic disorders of both mitral and tricuspid valves; I27.20 Pulmonary hypertension, unspecified; I25.5 Ischemic cardiomyopathy; G31.84 Mild cognitive impairment of uncertain or unknown etiology; D63.1 Anemia in chronic kidney disease; M71.122 Other infective bursitis, left elbow; E87.5 Hyperkalemia; R94.31 Abnormal electrocardiogram [ECG] [EKG]; I45.5 Other specified heart block; F32.9 Major depressive disorder, single episode, unspecified; F17.210 Nicotine dependence, cigarettes, uncomplicated; E78.00 Pure hypercholesterolemia, unspecified; N40.0 Benign prostatic hyperplasia without lower urinary tract symptoms; E11.42 Type 2 diabetes mellitus with diabetic polyneuropathy; K21.9 Gastro-esophageal reflux disease without esophagitis; K58.9 Irritable bowel syndrome, unspecified; Z79.01 Long term (current) use of anticoagulants; Z79.899 Other long term (current) drug therapy; Z79.02 Long term (current) use of antithrombotics/antiplatelets; Z95.5 Presence of coronary angioplasty implant and graft; Z79.4 Long term (current) use of insulin; Z88.0 Allergy status to penicillin; Z88.6 Allergy status to analgesic agent; Z88.8 Allergy status to other drugs, medicaments and biological substances; Z91.030 Bee allergy status; Z91.041 Radiographic dye allergy status; Z91.018 Allergy to other foods; I25.2 Old myocardial infarction; Z86.73 Personal history of transient ischemic attack (TIA), and cerebral infarction without residual deficits; Z91.19 Patient's noncompliance with other medical treatment and regimen
CPT/HCPCS: 36415; 36600; 70450; 71045; 71046; 71250; 74176; 80048; 80053; 80162; 80202; 81003; 81015; 82140; 82248; 82803; 82947; 83605; 83735; 83880; 84100; 84484; 84550; 85025; 85027; 85060; 85610; 87040; 87070; 87086; 87205; 87493; 93005; 93306; 94002; 94003; 94640; 94660; 96374; 99285; A9270-GY; G8978-GP-CM; G8979-GP-CL; J0330; J0360; J0692; J0696; J1160; J1630; J1650; J1940; J2060; J2270; J2405; J2704; J3010; J3360; J3370; J3475; J3486; J3490; J3535; J7512; P9047